=== PATIENT | male | born 1960 | race Caucasian/White ===

== ENCOUNTER 2017-11-27 16:37 | Outpatient (RCR) | payer BC, SELFPAY ==
[2017-11-20 18:50] LABS: Absolute Lymphocyte Count 1.93 X10^3/ul (0.83-4.51); Absolute Neutrophil Count 7.1 X10^3/uL (2.0-7.7); Eosinophil# 0.23 X10^3/uL; Eosinophils% 2.5 % (0-5); Hematocrit 35.8 % (40-54); Hemoglobin 11.2 g/dl (13.0-16.5); Lymphocyte # 1.93 X10^3/ul (4.0); Lymphocyte % 20.8 % (19-41); Mean Corp Hgb Conc 31.3 g/gl (32-36); Mean Corpuscular Hgb 27.9 pg (27.0-32.0); Mean Corpuscular Volume 89.3 fL (80-94); Mean Platelet Vol. 10.4 fl (6.2-12.0); Monocyte# 0.03 X10^3/uL; Monocyte% 0.3 % (0-10); Neutrophil % 76.3 % (47-70); POSITIVE COUNT NO; POSITIVE DIFFERENTIAL NO; POSITIVE MORPHOLOGY NO; Platelet Count 504 K/mm3 (150-450); RBC Distribution Width CV 18.5 % (11.6-14.6); RBC Distribution Width SD 56.7 fl (35.1-43.9); Red Blood Count 4.01 M/mm3 (4.6-6.2); White Blood Count 9.3 K/mm3 (4.4-11.0)
[2017-11-20 19:07] LABS: ALB/GLOB Ratio 0.5 RATIO (0.9-2.4); AST(SGOT) 96 U/L (15-37); Alanine Aminotransfer ALT/SGPT 84 U/L (16-61); Albumin, Serum 2.2 g/dL (3.2-5.0); Alkaline Phosphatase 230 U/L (45-117); Anion Gap 8 (5-15); BUN 13 mg/dL (7-18); BUN/Creat Ratio 22.8 RATIO (10-20); Calcium,Total 8.1 mg/dL (8.5-10.1); Chloride 105 mmol/L (98-107); Creatinine, Serum 0.57 mg/dL (0.70-1.30); EST Glomerular Filtration Rate 156 mL/min (>60); Est Glom Filt Rate - Afr Amer 188 mL/min (>60); Globulin 4.2 g/dL (2.2-4.2); Glucose 89 mg/dL (74-106); Magnesium 2.1 mg/dL (1.6-2.6); Phosphorus 4.3 mg/dL (2.5-4.9); Potassium 4.1 mmol/L (3.5-5.1); Prealbumin 19.3 mg/dL (20.0-40.0); Protein, Total 6.4 g/dL (6.4-8.2); Sodium Level 141 mmol/L (136-145); Triglycerides 130 mg/dL
[2017-11-27 18:47] LABS: ALB/GLOB Ratio 0.4 RATIO (0.9-2.4); AST(SGOT) 23 U/L (15-37); Alanine Aminotransfer ALT/SGPT 38 U/L (16-61); Alkaline Phosphatase 191 U/L (45-117); Anion Gap 11 (5-15); BUN 17 mg/dL (7-18); BUN/Creat Ratio 23.1 RATIO (10-20); Calcium,Total 8.3 mg/dL (8.5-10.1); Chloride 102 mmol/L (98-107); Creatinine, Serum 0.74 mg/dL (0.70-1.30); EST Glomerular Filtration Rate 116 mL/min (>60); Est Glom Filt Rate - Afr Amer 140 mL/min (>60); Globulin 4.7 g/dL (2.2-4.2); Glucose 117 mg/dL (74-106); Magnesium 1.7 mg/dL (1.6-2.6); Phosphorus 2.5 mg/dL (2.5-4.9); Potassium 3.4 mmol/L (3.5-5.1); Prealbumin 6.6 mg/dL (20.0-40.0); Protein, Total 6.7 g/dL (6.4-8.2); Sodium Level 138 mmol/L (136-145)
[2017-11-27 18:55] LABS: Absolute Lymphocyte Count 1.39 X10^3/ul (0.83-4.51); Absolute Neutrophil Count 0.8 X10^3/uL (2.0-7.7); Basophil# 0.03 X10^3/uL; Basophil% 0.9 % (0-1); Eosinophil# 0.09 X10^3/uL; Eosinophils% 2.7 % (0-5); Hematocrit 35.7 % (40-54); Hemoglobin 11.4 g/dl (13.0-16.5); Lymphocyte # 1.39 X10^3/ul (4.0); Lymphocyte % 41.2 % (19-41); Mean Corp Hgb Conc 31.9 g/gl (32-36); Mean Corpuscular Hgb 27.1 pg (27.0-32.0); Mean Corpuscular Volume 84.8 fL (80-94); Mean Platelet Vol. 10.5 fl (6.2-12.0); Monocyte# 1.05 X10^3/uL; Monocyte% 31.2 % (0-10); Neutrophil # 0.81 X10^3/uL (2.7-7.7); Platelet Count 354 K/mm3 (150-450); RBC Distribution Width CV 18.3 % (11.6-14.6); RBC Distribution Width SD 53.9 fl (35.1-43.9); Red Blood Count 4.21 M/mm3 (4.6-6.2); White Blood Count 3.4 K/mm3 (4.4-11.0)
[2017-11-27 18:59] LABS: Differential Indicated SCAN CRITERIA MET; POSITIVE COUNT NO; POSITIVE DIFFERENTIAL YES; POSITIVE MORPHOLOGY YES
[2017-11-27 19:12] LABS: Differential Comment SCANNED
== END 2017-12-12 23:59 ==
LOC: HHLAB 16:37
PROVIDERS: Visit Provider Specialist/Technologist, Other Surgical Technologist
DX: C25.9 Malignant neoplasm of pancreas, unspecified (principal); Z51.81 Encounter for therapeutic drug level monitoring
CPT/HCPCS: 80053; 83735; 84100; 84134; 84478; 85025

== ENCOUNTER 2017-11-30 07:55 | Outpatient (RCR) | payer BC, SELFPAY ==
[2017-11-30 08:45] LABS: Absolute Lymphocyte Count 3.38 X10^3/ul (0.83-4.51); Absolute Neutrophil Count 3.7 X10^3/uL (2.0-7.7); Basophil# 0.58 X10^3/uL; Basophil% 5.8 % (0-1); Differential Indicated SCAN CRITERIA MET; Eosinophil# 0.28 X10^3/uL; Eosinophils% 2.8 % (0-5); Hematocrit 35.6 % (40-54); Hemoglobin 11.4 g/dl (13.0-16.5); Lymphocyte # 3.38 X10^3/ul (4.0); Lymphocyte % 33.7 % (19-41); Mean Corpuscular Hgb 27.1 pg (27.0-32.0); Mean Corpuscular Volume 84.6 fL (80-94); Mean Platelet Vol. 10.1 fl (6.2-12.0); Monocyte# 1.94 X10^3/uL; Monocyte% 19.3 % (0-10); Neutrophil # 3.69 X10^3/uL (2.7-7.7); Neutrophil % 36.8 % (47-70); POSITIVE COUNT NO; POSITIVE DIFFERENTIAL YES; POSITIVE MORPHOLOGY YES; Platelet Count 550 K/mm3 (150-450); RBC Distribution Width CV 18.1 % (11.6-14.6); RBC Distribution Width SD 52.6 fl (35.1-43.9); Red Blood Count 4.21 M/mm3 (4.6-6.2)
== END 2017-11-30 09:00 | disposition home or self-care (01) ==
LOC: LAB 07:55
DX: C25.9 Malignant neoplasm of pancreas, unspecified (principal)
CPT/HCPCS: 36415; 85025

== ENCOUNTER 2018-01-01 12:32 | Outpatient (RCR) | payer BC, SELFPAY ==
[2017-12-18 14:47] LABS: Hematocrit 29.7 % (40-54); Hemoglobin 9.2 g/dl (13.0-16.5); Mean Corpuscular Hgb 27.4 pg (27.0-32.0); Mean Corpuscular Volume 88.4 fL (80-94); Mean Platelet Vol. 11.4 fl (6.2-12.0); Platelet Count 360 K/mm3 (150-450); RBC Distribution Width CV 20.6 % (11.6-14.6); RBC Distribution Width SD 64.1 fl (35.1-43.9); Red Blood Count 3.36 M/mm3 (4.6-6.2); White Blood Count 9.4 K/mm3 (4.4-11.0)
[2017-12-18 14:50] LABS: Scan Indicated on CBC? Y/N YES- FLAGS NOTED
[2017-12-18 14:57] LABS: ALB/GLOB Ratio 0.3 RATIO (0.9-2.4); AST(SGOT) 49 U/L (15-37); Alanine Aminotransfer ALT/SGPT 36 U/L (16-61); Albumin, Serum 1.5 g/dL (3.2-5.0); Alkaline Phosphatase 331 U/L (45-117); Anion Gap 6 (5-15); BUN 23 mg/dL (7-18); BUN/Creat Ratio 20.9 RATIO (10-20); Calcium,Total 7.7 mg/dL (8.5-10.1); Chloride 108 mmol/L (98-107); EST Glomerular Filtration Rate 73 mL/min (>60); Est Glom Filt Rate - Afr Amer 88 mL/min (>60); Globulin 5.5 g/dL (2.2-4.2); Glucose 79 mg/dL (74-106); Magnesium 1.6 mg/dL (1.6-2.6); Potassium 4.2 mmol/L (3.5-5.1); Sodium Level 143 mmol/L (136-145)
[2018-01-01 13:33] LABS: ALB/GLOB Ratio 0.5 RATIO (0.9-2.4); AST(SGOT) 56 U/L (15-37); Alanine Aminotransfer ALT/SGPT 94 U/L (16-61); Albumin, Serum 2.3 g/dL (3.2-5.0); Alkaline Phosphatase 263 U/L (45-117); Anion Gap 11 (5-15); BUN 25 mg/dL (7-18); BUN/Creat Ratio 40.8 RATIO (10-20); Calcium,Total 8.1 mg/dL (8.5-10.1); Chloride 106 mmol/L (98-107); Creatinine, Serum 0.61 mg/dL (0.70-1.30); EST Glomerular Filtration Rate 143 mL/min (>60); Est Glom Filt Rate - Afr Amer 173 mL/min (>60); Globulin 4.6 g/dL (2.2-4.2); Glucose 120 mg/dL (74-106); Magnesium 1.8 mg/dL (1.6-2.6); Potassium 3.7 mmol/L (3.5-5.1); Prealbumin 29.7 mg/dL (20.0-40.0); Protein, Total 6.9 g/dL (6.4-8.2); Sodium Level 143 mmol/L (136-145)
[2018-01-01 13:39] LABS: Absolute Lymphocyte Count 1.54 X10^3/ul (0.83-4.51); Absolute Neutrophil Count 4.1 X10^3/uL (2.0-7.7); Basophil# 0.05 X10^3/uL; Basophil% 0.8 % (0-1); Eosinophils% 4.9 % (0-5); Hematocrit 31.1 % (40-54); Hemoglobin 9.8 g/dl (13.0-16.5); Lymphocyte # 1.54 X10^3/ul (4.0); Mean Corp Hgb Conc 31.5 g/gl (32-36); Mean Corpuscular Hgb 28.1 pg (27.0-32.0); Mean Corpuscular Volume 89.1 fL (80-94); Mean Platelet Vol. 12.5 fl (6.2-12.0); Monocyte# 0.13 X10^3/uL; Monocyte% 2.1 % (0-10); Neutrophil # 4.12 X10^3/uL (2.7-7.7); Platelet Count 181 K/mm3 (150-450); RBC Distribution Width CV 20.3 % (11.6-14.6); RBC Distribution Width SD 63.3 fl (35.1-43.9); Red Blood Count 3.49 M/mm3 (4.6-6.2); White Blood Count 6.2 K/mm3 (4.4-11.0)
[2018-01-01 13:40] LABS: Differential Indicated SCAN CRITERIA MET; POSITIVE COUNT NO; POSITIVE DIFFERENTIAL NO; POSITIVE MORPHOLOGY YES
== END 2018-01-12 23:59 ==
LOC: HHLAB 12:32
PROVIDERS: Visit Provider Specialist/Technologist, Other Surgical Technologist
DX: C25.9 Malignant neoplasm of pancreas, unspecified (principal); Z45.2 Encounter for adjustment and management of vascular access device
CPT/HCPCS: 80053; 83735; 84100; 84134; 85025; 85027

== ENCOUNTER 2018-01-17 16:20 | Emergency (ER) | payer BC, SELFPAY ==
[2018-01-17 16:21] VITALS: BP 118/75; PULSE 103; RESP 18; TEMP 36.9; O2SAT 97; BMI 25.0
[2018-01-17 17:09] LABS: Anion Gap 11 (5-15); BUN 18 mg/dL (7-18); BUN/Creat Ratio 27.8 RATIO (10-20); Calcium,Total 8.3 mg/dL (8.5-10.1); Chloride 107 mmol/L (98-107); Creatinine, Serum 0.65 mg/dL (0.70-1.30); EST Glomerular Filtration Rate 134 mL/min (>60); Est Glom Filt Rate - Afr Amer 162 mL/min (>60); Estimated Creatinine Clearance 150.23 ml/min; Glucose 114 mg/dL (74-106); Potassium 3.6 mmol/L (3.5-5.1); Sodium Level 139 mmol/L (136-145)
[2018-01-17 17:21] LABS: Absolute Lymphocyte Count 1.53 X10^3/ul (0.83-4.51); Absolute Neutrophil Count 1.2 X10^3/uL (2.0-7.7); Basophil# 0.01 X10^3/uL; Basophil% 0.3 % (0-1); Eosinophil# 0.09 X10^3/uL; Eosinophils% 3.1 % (0-5); Hematocrit 32.8 % (40-54); Hemoglobin 10.6 g/dl (13.0-16.5); Lymphocyte # 1.53 X10^3/ul (4.0); Mean Corp Hgb Conc 32.3 g/gl (32-36); Mean Corpuscular Hgb 27.8 pg (27.0-32.0); Mean Corpuscular Volume 86.1 fL (80-94); Mean Platelet Vol. 10.4 fl (6.2-12.0); Monocyte# 0.08 X10^3/uL; Monocyte% 2.7 % (0-10); Neutrophil # 1.23 X10^3/uL (2.7-7.7); Neutrophil % 41.9 % (47-70); Platelet Count 278 K/mm3 (150-450); RBC Distribution Width CV 18.7 % (11.6-14.6); RBC Distribution Width SD 59.2 fl (35.1-43.9); Red Blood Count 3.81 M/mm3 (4.6-6.2); White Blood Count 2.9 K/mm3 (4.4-11.0)
[2018-01-17 18:28] LABS: Differential Indicated SCAN CRITERIA MET; POSITIVE COUNT NO; POSITIVE DIFFERENTIAL NO; POSITIVE MORPHOLOGY YES
--- NOTE | 2018-01-17 18:45 | ED.DCSUM_ITS ---
- ER Visit Summary Date of Service: 01/17/18 Chief Complaint: Left arm swollen History of Present Illness: The patient is a 58 M with history of pancreatic cancer. He had a PICC line placed in the left upper extremity several months ago at the cancer treatment centers of [facility] in [place]. Line is used nightly for TPN and fluids. He noted his left arm to be swollen over the past 2 days. He has been trying to establish care with Dr. Martin, but currently does not have a primary care physician locally. He denies chest pain or shortness of breath. Physical Examination: Vital signs are unremarkable. Patient sitting upright in bed no acute distress. Heart is regular rate and rhythm. Lung sounds are clear. Abdomen is soft nontender. Left upper extremity examination was PICC line to be in place. He has 2+ edema to the arm. There is no erythema. Area around the PICC line is nontender. Test Results: CBC was white count 2.9 with 1.2 absolute neutrophils. Hemoglobin 10.6. Chemistry studies normal. Chest x-ray shows no acute process. Left PICC line is in place with the tip at the SVC/atrial junction. Emergency Department Course and Treatment: Patient presented to the ED at a time and I do not have ultrasound available to check his arm. He will be written for an order to come back tomorrow for ultrasound of the left arm. PICC line will be flushed prior to discharge. Treatment Plan: [] Disposition: Discharge Impression: Left arm edema This note was generated with Admittedly dictation software. It may contain incorrect words, spelling, and punctuation that were not noted in review of the chart prior to signing ED Disposition - Plan for ED Patient: Chief Complaint: Edema Referrals: Care Physician,No Primary [Primary Care Provider] -
--- NOTE | 2018-01-17 18:46 | ED.DEP ---
ED Disposition - Plan for ED Patient: Disposition: Home or Assisted Living Chief Complaint: Edema Referrals: Kleber Martin DO [STAFF PHYSICIAN] - Additional Instructions: You will return tomorrow for an ultrasound of your left arm to ensure no blood clot present.
[2018-01-17 19:13] VITALS: BP 106/79; PULSE 86; RESP 16; O2SAT 97
[2018-01-18 14:34] LABS: Pathologist Review Reviewed
== END 2018-01-17 19:19 | disposition home or self-care (01) ==
PROVIDERS: Emergency Provider Emergency Medicine
DX: R60.0 Localized edema (principal); Z79.01 Long term (current) use of anticoagulants; Z79.891 Long term (current) use of opiate analgesic; Z79.899 Other long term (current) drug therapy; Z85.07 Personal history of malignant neoplasm of pancreas
CPT/HCPCS: 71045; 80048; 85025; 99285; A4216

== ENCOUNTER → 2018-01-18 13:01 | Outpatient (CLI) | payer BC, SELFPAY | PROVIDERS: Visit Provider Emergency Medicine | DX: R60.0 Localized edema (principal) | CPT/HCPCS: 93971 ==

== ENCOUNTER 2018-01-18 13:35 | Emergency (ER) | payer BC, SELFPAY ==
[2018-01-18 13:35] VITALS: BP 122/84; PULSE 82; RESP 16; TEMP 36.4; O2SAT 98; BMI 24.8
--- NOTE | 2018-01-18 14:49 | ED.DCSUM_ITS ---
- ER Visit Summary Date of Service: 01/18/18 Chief Complaint: Arm swelling History of Present Illness: The patient is a 58 M presents to the emergency department with left arm swelling. Patient has a history of pancreatic cancer. He has a PICC line in his left arm. He was actually seen here yesterday with some swelling into the arm. He had an outpatient ultrasound today which shows DVT around the PICC line in the upper extremity. He denies chest pain or shortness of breath. He gets all of his treatment through the cancer center of [facility] in [place]. He initially had treatment through [facility], but was referred for a second opinion there. He was actually admitted in December with bacteremia. At that time, he had his Mediport pulled and his PICC was placed. He is not on anticoagulants. He denies any fevers or chills. Physical Examination: Vital signs reviewed General: Well-nourished, well-developed Head: Normocephalic, atraumatic Eyes: Pupils equal and reactive, extraocular muscles intact Neck, supple, no lymphadenopathy Heart: Regular rate and rhythm Respiratory: No distress, clear bilaterally Abdomen: Soft, nontender, nondistended, no peritoneal signs Back: Nontender Extremities: Asymmetric edema of the left upper extremity, 2+ pulses, no cords Skin: Normal color no rash Neuro: Alert and oriented, no focal or lateralizing deficits Test Results: [] Emergency Department Course and Treatment: [I was able to review the patient's labs from yesterday along with his ultrasound from today. His platelets are normal. I discussed the patient with his oncologist, Dr. Mcgee at the cancer [facility] in [place]. She did recommend starting Eliquis. The patient is dependent on his PICC line for nutrition, so I do feel that pulling it at this time is not appropriate. The patient was given his first dose here. He was written a prescription. He was counseled on side effects and bleeding and when to return to the emergency department. He is comfortable this plan of care will be discharged home. Treatment Plan: [] Disposition: Discharge Impression: Left upper extremity DVT This note was generated with NetClarity dictation software. It may contain incorrect words, spelling, and punctuation that were not noted in review of the chart prior to signing ED Disposition - Plan for ED Patient: Chief Complaint: Edema Instructions: ED DVT Prescriptions: Apixaban [Eliquis] 10 mg PO BID #49 tab Referrals: Care Physician,No Primary [Primary Care Provider] -
[2018-01-18] MEDS: APIXABAN 5 MG TABLET 10 MG PO (15:43)
[2018-01-18 15:48] VITALS: BP 124/84; PULSE 86; RESP 17; O2SAT 97
== END 2018-01-18 15:49 | disposition home or self-care (01) ==
PROVIDERS: Emergency Provider Emergency Medicine
DX: I82.622 Acute embolism and thrombosis of deep veins of left upper extremity (principal); Z79.01 Long term (current) use of anticoagulants; Z79.899 Other long term (current) drug therapy; Z85.07 Personal history of malignant neoplasm of pancreas
CPT/HCPCS: 99283

== ENCOUNTER 2018-01-22 16:14 | Outpatient (RCR) | payer BC, SELFPAY ==
[2018-01-16 17:28] LABS: Absolute Neutrophil Count 1.8 X10^3/uL (2.0-7.7); Basophil# 0.01 X10^3/uL; Basophil% 0.3 % (0-1); Eosinophil# 0.06 X10^3/uL; Eosinophils% 1.8 % (0-5); Hematocrit 28.6 % (40-54); Hemoglobin 9.2 g/dl (13.0-16.5); Lymphocyte % 39.6 % (19-41); Mean Corp Hgb Conc 32.2 g/gl (32-36); Mean Corpuscular Hgb 28.2 pg (27.0-32.0); Mean Corpuscular Volume 87.7 fL (80-94); Mean Platelet Vol. 11.2 fl (6.2-12.0); Monocyte# 0.07 X10^3/uL; Monocyte% 2.1 % (0-10); Neutrophil # 1.83 X10^3/uL (2.7-7.7); Neutrophil % 55.9 % (47-70); Platelet Count 200 K/mm3 (150-450); RBC Distribution Width SD 61.1 fl (35.1-43.9); Red Blood Count 3.26 M/mm3 (4.6-6.2); White Blood Count 3.3 K/mm3 (4.4-11.0)
[2018-01-16 17:30] LABS: POSITIVE COUNT NO; POSITIVE DIFFERENTIAL NO; POSITIVE MORPHOLOGY NO
[2018-01-16 17:40] LABS: Magnesium 1.6 mg/dL (1.6-2.6); Phosphorus 3.1 mg/dL (2.5-4.9); Prealbumin 15.8 mg/dL (20.0-40.0)
[2018-01-17 14:35] LABS: ALB/GLOB Ratio 0.6 RATIO (0.9-2.4); AST(SGOT) 27 U/L (15-37); Alanine Aminotransfer ALT/SGPT 66 U/L (16-61); Alkaline Phosphatase 189 U/L (45-117); Anion Gap 10 (5-15); BUN 19 mg/dL (7-18); BUN/Creat Ratio 38.2 RATIO (10-20); Calcium,Total 7.5 mg/dL (8.5-10.1); Chloride 106 mmol/L (98-107); EST Glomerular Filtration Rate 182 mL/min (>60); Est Glom Filt Rate - Afr Amer 220 mL/min (>60); Globulin 3.6 g/dL (2.2-4.2); Glucose 97 mg/dL (74-106); Potassium 3.7 mmol/L (3.5-5.1); Protein, Total 5.6 g/dL (6.4-8.2); Sodium Level 140 mmol/L (136-145)
[2018-01-22 17:46] LABS: ALB/GLOB Ratio 0.5 RATIO (0.9-2.4); AST(SGOT) 23 U/L (15-37); Alanine Aminotransfer ALT/SGPT 35 U/L (16-61); Albumin, Serum 1.8 g/dL (3.2-5.0); Alkaline Phosphatase 189 U/L (45-117); Anion Gap 13 (5-15); BUN 25 mg/dL (7-18); BUN/Creat Ratio 36.7 RATIO (10-20); Calcium,Total 8.1 mg/dL (8.5-10.1); Chloride 108 mmol/L (98-107); Creatinine, Serum 0.68 mg/dL (0.70-1.30); EST Glomerular Filtration Rate 127 mL/min (>60); Est Glom Filt Rate - Afr Amer 153 mL/min (>60); Globulin 3.9 g/dL (2.2-4.2); Glucose 112 mg/dL (74-106); Magnesium 1.6 mg/dL (1.6-2.6); Phosphorus 3.6 mg/dL (2.5-4.9); Potassium 3.4 mmol/L (3.5-5.1); Prealbumin 7.4 mg/dL (20.0-40.0); Protein, Total 5.7 g/dL (6.4-8.2); Sodium Level 144 mmol/L (136-145); Triglycerides 94 mg/dL
[2018-01-22 18:06] LABS: Absolute Lymphocyte Count 1.58 X10^3/ul (0.83-4.51); Basophil# 0.03 X10^3/uL; Basophil% 0.8 % (0-1); Differential Comment SCANNED; Differential Indicated SCAN CRITERIA MET; Eosinophil# 0.08 X10^3/uL; Eosinophils% 2.1 % (0-5); Hematocrit 35.2 % (40-54); Hemoglobin 11.1 g/dl (13.0-16.5); Lymphocyte # 1.58 X10^3/ul (4.0); Lymphocyte % 40.5 % (19-41); Mean Corp Hgb Conc 31.5 g/gl (32-36); Mean Corpuscular Volume 88.7 fL (80-94); Mean Platelet Vol. 10.6 fl (6.2-12.0); Monocyte# 1.17 X10^3/uL; Neutrophil % 25.6 % (47-70); POSITIVE COUNT NO; POSITIVE DIFFERENTIAL YES; POSITIVE MORPHOLOGY YES; Platelet Count 392 K/mm3 (150-450); RBC Distribution Width CV 19.5 % (11.6-14.6); RBC Distribution Width SD 63.7 fl (35.1-43.9); Red Blood Count 3.97 M/mm3 (4.6-6.2); White Blood Count 3.9 K/mm3 (4.4-11.0)
== END 2018-02-11 23:59 ==
LOC: HHLAB 16:14
PROVIDERS: Visit Provider Specialist/Technologist, Other Surgical Technologist
DX: C25.9 Malignant neoplasm of pancreas, unspecified (principal); E43 Unspecified severe protein-calorie malnutrition; K21.9 Gastro-esophageal reflux disease without esophagitis; R11.0 Nausea; Z51.81 Encounter for therapeutic drug level monitoring; Z45.2 Encounter for adjustment and management of vascular access device; Z76.0 Encounter for issue of repeat prescription
CPT/HCPCS: 80053; 83735; 84100; 84134; 84478; 85025

== ENCOUNTER 2018-02-19 14:11 | Outpatient (RCR) | payer BC, SELFPAY ==
[2018-02-19 14:52] LABS: Absolute Lymphocyte Count 1.91 X10^3/ul (0.83-4.51); Absolute Neutrophil Count 3.3 X10^3/uL (2.0-7.7); Basophil# 0.02 X10^3/uL; Basophil% 0.3 % (0-1); Eosinophil# 0.08 X10^3/uL; Eosinophils% 1.3 % (0-5); Hematocrit 29.2 % (40-54); Hemoglobin 9.6 g/dl (13.0-16.5); Lymphocyte # 1.91 X10^3/ul (4.0); Mean Corp Hgb Conc 32.9 g/gl (32-36); Mean Corpuscular Hgb 30.1 pg (27.0-32.0); Mean Corpuscular Volume 91.5 fL (80-94); Mean Platelet Vol. 11.4 fl (6.2-12.0); Monocyte# 0.57 X10^3/uL; Monocyte% 9.6 % (0-10); Neutrophil # 3.29 X10^3/uL (2.7-7.7); Neutrophil % 55.3 % (47-70); Platelet Count 170 K/mm3 (150-450); RBC Distribution Width CV 19.7 % (11.6-14.6); Red Blood Count 3.19 M/mm3 (4.6-6.2)
[2018-02-19 14:53] LABS: Differential Indicated SCAN CRITERIA MET; POSITIVE COUNT NO; POSITIVE DIFFERENTIAL NO; POSITIVE MORPHOLOGY YES
[2018-02-19 15:03] LABS: ALB/GLOB Ratio 0.5 RATIO (0.9-2.4); AST(SGOT) 41 U/L (15-37); Alanine Aminotransfer ALT/SGPT 85 U/L (16-61); Albumin, Serum 2.1 g/dL (3.2-5.0); Alkaline Phosphatase 243 U/L (45-117); Anion Gap 8 (5-15); BUN 16 mg/dL (7-18); BUN/Creat Ratio 40.7 RATIO (10-20); Chloride 105 mmol/L (98-107); Creatinine, Serum 0.39 mg/dL (0.70-1.30); EST Glomerular Filtration Rate 239 mL/min (>60); Est Glom Filt Rate - Afr Amer 289 mL/min (>60); Globulin 4.4 g/dL (2.2-4.2); Glucose 69 mg/dL (74-106); Magnesium 1.9 mg/dL (1.6-2.6); Phosphorus 2.2 mg/dL (2.5-4.9); Potassium 3.7 mmol/L (3.5-5.1); Prealbumin 24.2 mg/dL (20.0-40.0); Protein, Total 6.5 g/dL (6.4-8.2); Sodium Level 140 mmol/L (136-145); Triglycerides 76 mg/dL
[2018-02-19 15:09] LABS: Hypochromasia 2+; Polychromasia 1+
[2018-02-19 15:10] LABS: Platelet Estimate ADEQUATE (ADEQ)
== END 2018-03-14 23:59 ==
LOC: HHLAB 14:11
PROVIDERS: Referring Provider Specialist/Technologist, Other Surgical Technologist; Visit Provider Specialist/Technologist, Other Surgical Technologist
DX: C25.9 Malignant neoplasm of pancreas, unspecified (principal); Z76.0 Encounter for issue of repeat prescription
CPT/HCPCS: 80053; 83735; 84100; 84134; 84478; 85025

== ENCOUNTER 2018-03-05 15:51 | Outpatient (RCR) | payer BC, SELFPAY ==
[2018-03-05 17:44] LABS: Absolute Neutrophil Count 2.8 X10^3/uL (2.0-7.7); Basophil# 0.01 X10^3/uL; Basophil% 0.2 % (0-1); Eosinophil# 0.02 X10^3/uL; Eosinophils% 0.5 % (0-5); Hematocrit 29.2 % (40-54); Hemoglobin 9.4 g/dl (13.0-16.5); Lymphocyte % 33.8 % (19-41); Mean Corp Hgb Conc 32.2 g/gl (32-36); Mean Corpuscular Volume 93.3 fL (80-94); Mean Platelet Vol. 12.5 fl (6.2-12.0); Monocyte# 0.07 X10^3/uL; Monocyte% 1.6 % (0-10); Neutrophil # 2.82 X10^3/uL (2.7-7.7); Neutrophil % 63.4 % (47-70); Platelet Count 120 K/mm3 (150-450); RBC Distribution Width CV 20.1 % (11.6-14.6); RBC Distribution Width SD 66.5 fl (35.1-43.9); Red Blood Count 3.13 M/mm3 (4.6-6.2); White Blood Count 4.4 K/mm3 (4.4-11.0)
[2018-03-05 17:53] LABS: Differential Indicated SCAN CRITERIA MET; POSITIVE COUNT NO; POSITIVE DIFFERENTIAL NO; POSITIVE MORPHOLOGY YES
[2018-03-05 18:06] LABS: ALB/GLOB Ratio 0.6 RATIO (0.9-2.4); AST(SGOT) 50 U/L (15-37); Alanine Aminotransfer ALT/SGPT 94 U/L (16-61); Albumin, Serum 2.2 g/dL (3.2-5.0); Alkaline Phosphatase 218 U/L (45-117); Anion Gap 10 (5-15); BUN 13 mg/dL (7-18); BUN/Creat Ratio 30.6 RATIO (10-20); Calcium,Total 8.1 mg/dL (8.5-10.1); Chloride 106 mmol/L (98-107); Creatinine, Serum 0.42 mg/dL (0.70-1.30); EST Glomerular Filtration Rate 218 mL/min (>60); Est Glom Filt Rate - Afr Amer 264 mL/min (>60); Globulin 3.4 g/dL (2.2-4.2); Glucose 65 mg/dL (74-106); Magnesium 1.4 mg/dL (1.6-2.6); Phosphorus 4.4 mg/dL (2.5-4.9); Potassium 3.9 mmol/L (3.5-5.1); Prealbumin 26.9 mg/dL (20.0-40.0); Protein, Total 5.6 g/dL (6.4-8.2); Sodium Level 140 mmol/L (136-145)
[2018-03-05 18:17] LABS: Anisocytosis 1+; Platelet Estimate SLT DEC (ADEQ); Red Cell Morphology N CHROM NORMAL (NORM C&C)
== END 2018-03-14 23:59 ==
LOC: HHLAB 15:51
PROVIDERS: Family Provider Specialist/Technologist, Other Surgical Technologist; PCP Specialist/Technologist, Other Surgical Technologist; Referring Provider Specialist/Technologist, Other Surgical Technologist; Visit Provider Specialist/Technologist, Other Surgical Technologist
DX: C25.9 Malignant neoplasm of pancreas, unspecified (principal); Z45.2 Encounter for adjustment and management of vascular access device
CPT/HCPCS: 80053; 83735; 84100; 84134; 85025

== ENCOUNTER 2018-03-31 19:43 | Emergency (ER) | payer BC, SELFPAY ==
[2018-03-31 19:45] VITALS: BP 121/84; PULSE 90; RESP 15; TEMP 36.6; O2SAT 97; BMI 23.8
--- NOTE | 2018-03-31 20:38 | ED.DCSUM_ITS ---
- ER Visit Summary Date of Service: 03/31/18 Chief Complaint: Blood from drain tube History of Present Illness: The patient is a 58 M patient presents with spouse for noticing bled from drain to connected his stomach started at 4 PM this evening. This was placed 4 weeks ago. History of pancreatic cancer with obstruction to his bowels. He is followed by cancer treatment center in [place] Dr. Mcgee. Initially was at [facility] however left and went to the cancer treatment center. Patient was on Eliquis for left subclavian DVT was transitioned over to Lovenox twice daily. She states had a biopsy stomach lesion a week ago up at the facility due to an abnormal lesion during his EGD and drain placement. Reported that lesion had mostly resolved however spouse states that the significant size biopsy was taken that was reported. He is on chemo with treatment 3 days ago up at their facility. Neulasta was given 2 days ago. He gets TPN for nutrition. Hemoglobin is 10.1 on the 12th. White blood cell count 14.3 before Neulasta. He is not giving himself Lovenox since the biopsy. No lightheaded symptoms. Physical Examination: General: Alert and oriented ?3, no acute distress HEENT: Normocephalic, atraumatic. Moist mucosa membranes Neck: supple, nontender. Cardiovascular: Regular rate and rhythm, no murmurs Respiratory: Normal breath sounds, symmetric, no distress Abdomen: Soft, nontender, nondistended. Drain tube from epigastrium, occult blood in tubing and bag. Extremities: Nontender, no edema, pulses intact ?4 Neuro: no focal neurological deficits. Test Results: Hemoglobin 10.5. White count 36.6. Emergency Department Course and Treatment: Patient nontoxic. Orthostatics negative. History concerns for bleeding from his recent biopsy from 6 days ago. Vitals are stable, he will 10.5. This is slightly higher than labs from 5 days ago. White count 36.6, they expected this elevation due to receiving Neulasta. No fevers. Patient is currently on Protonix twice a day along with Carafate 4 times a day. Discussed with patient monitoring symptoms. Did attempt to call his GI physician Dr. Sanchez from cancer treatment centers of [facility], physician office secretary left a couple voicemails. Discussed with patient significant other, continue the medications call in the morning during normal hours to discuss visit and plan of care. Signs and symptoms discussed to return. Treatment Plan: [] Disposition: Discharge Impression: 1. Upper GI bleed recent biopsy This note was generated with [employer] dictation software. It may contain incorrect words, spelling, and punctuation that were not noted in review of the chart prior to signing ED Disposition - Plan for ED Patient: Disposition: Home or Assisted Living Chief Complaint: GI Bleed Diagnosis: Upper GI bleed, Recent stomach biopsy Instructions: ED Bleed UGI Stable Referrals: Kleber Martin DO [Primary Care Provider] - Additional Instructions: Hemoglobin 10.5 today. WBC 36.6. Status post Neulasta. Call your GI physician tomorrow to discuss your visit in the ED. continue your Protonix and Carafate.
[2018-03-31 21:14] LABS: Anion Gap 7 (5-15); BUN 19 mg/dL (7-18); BUN/Creat Ratio 32.1 RATIO (10-20); Calcium,Total 8.2 mg/dL (8.5-10.1); Chloride 108 mmol/L (98-107); Creatinine, Serum 0.59 mg/dL (0.70-1.30); EST Glomerular Filtration Rate 149 mL/min (>60); Est Glom Filt Rate - Afr Amer 180 mL/min (>60); Estimated Creatinine Clearance 165.51 ml/min; Glucose 83 mg/dL (74-106); Potassium 3.7 mmol/L (3.5-5.1); Sodium Level 141 mmol/L (136-145)
[2018-03-31 21:15] LABS: Absolute Lymphocyte Count 2.31 X10^3/ul (0.83-4.51); Basophil# 0.03 X10^3/uL; Basophil% 0.1 % (0-1); Eosinophil# 0.05 X10^3/uL; Eosinophils% 0.1 % (0-5); Hematocrit 32.5 % (40-54); Hemoglobin 10.5 g/dl (13.0-16.5); Lymphocyte # 2.31 X10^3/ul (4.0); Lymphocyte % 6.3 % (19-41); Mean Corp Hgb Conc 32.3 g/gl (32-36); Mean Corpuscular Hgb 30.8 pg (27.0-32.0); Mean Corpuscular Volume 95.3 fL (80-94); Mean Platelet Vol. 10.5 fl (6.2-12.0); Monocyte# 0.25 X10^3/uL; Monocyte% 0.7 % (0-10); Neutrophil # 33.02 X10^3/uL (2.7-7.7); Neutrophil % 90.2 % (47-70); Platelet Count 187 K/mm3 (150-450); RBC Distribution Width CV 18.9 % (11.6-14.6); RBC Distribution Width SD 65.8 fl (35.1-43.9); Red Blood Count 3.41 M/mm3 (4.6-6.2)
[2018-03-31 21:17] LABS: International Normalized Ratio 0.9; Prothrombin Time (Protime)PT. 12.5 SECONDS (11.7-14.9)
[2018-03-31 21:18] LABS: Partial Thromboplast Time 32.9 Seconds (24.1-36.2)
[2018-03-31 21:21] LABS: Differential Indicated SCAN CRITERIA MET; POSITIVE COUNT YES; POSITIVE DIFFERENTIAL YES; POSITIVE MORPHOLOGY YES
[2018-03-31 21:24] LABS: White Blood Count 36.6 K/mm3 (4.4-11.0)
--- NOTE | 2018-03-31 21:25 | ED.RN ---
Critical result taken from lab, wbc 36.6. Dr. Verdin aware with Kris CACERES.
[2018-03-31 21:49] VITALS: BP 119/83; BP 122/99; BP 126/98; PULSE 103; PULSE 77; PULSE 88
[2018-03-31 21:50] LABS: Differential Comment SCANNED
[2018-03-31 23:13] VITALS: BP 115/80; PULSE 92; RESP 16; O2SAT 98; O2SAT 99
[2018-04-02 12:58] LABS: Pathologist Review Reviewed
== END 2018-03-31 23:14 | disposition home or self-care (01) ==
PROVIDERS: Emergency Provider Emergency Medicine; Family Provider Family Medicine; PCP Family Medicine
DX: K92.2 Gastrointestinal hemorrhage, unspecified (principal); C25.9 Malignant neoplasm of pancreas, unspecified; Z79.01 Long term (current) use of anticoagulants; Z79.899 Other long term (current) drug therapy; Z85.07 Personal history of malignant neoplasm of pancreas; Z86.718 Personal history of other venous thrombosis and embolism
CPT/HCPCS: 36592; 80048; 85025; 85610; 85730; 96365; 99283; A4216; J3490

== ENCOUNTER 2018-04-02 12:59 | Outpatient (RCR) | payer BC, SELFPAY ==
[2018-03-19 18:08] LABS: Absolute Neutrophil Count 16.4 X10^3/uL (2.0-7.7); Basophil# 0.03 X10^3/uL; Basophil% 0.2 % (0-1); Differential Indicated SCAN CRITERIA MET; Eosinophil# 0.02 X10^3/uL; Eosinophils% 0.1 % (0-5); Hematocrit 30.2 % (40-54); Hemoglobin 9.5 g/dl (13.0-16.5); Lymphocyte % 5.4 % (19-41); Mean Corp Hgb Conc 31.5 g/gl (32-36); Mean Corpuscular Hgb 30.6 pg (27.0-32.0); Mean Corpuscular Volume 97.4 fL (80-94); Mean Platelet Vol. 11.1 fl (6.2-12.0); Monocyte# 1.07 X10^3/uL; Monocyte% 5.7 % (0-10); Neutrophil % 87.8 % (47-70); POSITIVE COUNT NO; POSITIVE DIFFERENTIAL NO; POSITIVE MORPHOLOGY YES; Platelet Count 181 K/mm3 (150-450); RBC Distribution Width CV 19.6 % (11.6-14.6); RBC Distribution Width SD 67.3 fl (35.1-43.9); White Blood Count 18.7 K/mm3 (4.4-11.0)
[2018-03-19 18:29] LABS: ALB/GLOB Ratio 0.7 RATIO (0.9-2.4); AST(SGOT) 44 U/L (15-37); Alanine Aminotransfer ALT/SGPT 79 U/L (16-61); Albumin, Serum 2.3 g/dL (3.2-5.0); Alkaline Phosphatase 349 U/L (45-117); Anion Gap 13 (5-15); BUN 19 mg/dL (7-18); Calcium,Total 7.9 mg/dL (8.5-10.1); Chloride 104 mmol/L (98-107); Creatinine, Serum 0.58 mg/dL (0.70-1.30); EST Glomerular Filtration Rate 154 mL/min (>60); Est Glom Filt Rate - Afr Amer 186 mL/min (>60); Globulin 3.3 g/dL (2.2-4.2); Glucose 85 mg/dL (74-106); Magnesium 1.7 mg/dL (1.6-2.6); Phosphorus 3.2 mg/dL (2.5-4.9); Potassium 3.9 mmol/L (3.5-5.1); Prealbumin 22.9 mg/dL (20.0-40.0); Protein, Total 5.6 g/dL (6.4-8.2); Sodium Level 142 mmol/L (136-145); Triglycerides 81 mg/dL
[2018-04-02 13:39] LABS: Absolute Lymphocyte Count 1.81 X10^3/ul (0.83-4.51); Absolute Neutrophil Count 18.2 X10^3/uL (2.0-7.7); Basophil# 0.05 X10^3/uL; Basophil% 0.2 % (0-1); Hematocrit 30.5 % (40-54); Hemoglobin 9.7 g/dl (13.0-16.5); Lymphocyte # 1.81 X10^3/ul (4.0); Lymphocyte % 8.7 % (19-41); Mean Corp Hgb Conc 31.8 g/gl (32-36); Mean Corpuscular Hgb 30.8 pg (27.0-32.0); Mean Corpuscular Volume 96.8 fL (80-94); Mean Platelet Vol. 11.5 fl (6.2-12.0); Monocyte# 0.51 X10^3/uL; Monocyte% 2.4 % (0-10); Neutrophil # 18.22 X10^3/uL (2.7-7.7); Neutrophil % 87.1 % (47-70); Platelet Count 151 K/mm3 (150-450); RBC Distribution Width CV 18.7 % (11.6-14.6); Red Blood Count 3.15 M/mm3 (4.6-6.2); White Blood Count 20.9 K/mm3 (4.4-11.0)
[2018-04-02 13:40] LABS: Differential Indicated SCAN CRITERIA MET; POSITIVE COUNT NO; POSITIVE DIFFERENTIAL NO; POSITIVE MORPHOLOGY YES
[2018-04-02 13:49] LABS: ALB/GLOB Ratio 0.6 RATIO (0.9-2.4); AST(SGOT) 49 U/L (15-37); Alanine Aminotransfer ALT/SGPT 85 U/L (16-61); Albumin, Serum 2.3 g/dL (3.2-5.0); Alkaline Phosphatase 484 U/L (45-117); Anion Gap 11 (5-15); BUN 22 mg/dL (7-18); BUN/Creat Ratio 45.1 RATIO (10-20); Calcium,Total 8.1 mg/dL (8.5-10.1); Chloride 105 mmol/L (98-107); Creatinine, Serum 0.49 mg/dL (0.70-1.30); EST Glomerular Filtration Rate 186 mL/min (>60); Est Glom Filt Rate - Afr Amer 225 mL/min (>60); Globulin 3.8 g/dL (2.2-4.2); Glucose 60 mg/dL (74-106); Magnesium 1.9 mg/dL (1.6-2.6); Potassium 3.8 mmol/L (3.5-5.1); Prealbumin 19.1 mg/dL (20.0-40.0); Protein, Total 6.1 g/dL (6.4-8.2); Sodium Level 144 mmol/L (136-145); Triglycerides 76 mg/dL
[2018-04-02 14:03] LABS: Differential Comment SCANNED
== END 2018-04-13 23:59 ==
LOC: HHLAB 12:59
PROVIDERS: Family Provider Specialist/Technologist, Other Surgical Technologist; PCP Specialist/Technologist, Other Surgical Technologist; Referring Provider Specialist/Technologist, Other Surgical Technologist; Visit Provider Specialist/Technologist, Other Surgical Technologist
DX: C25.9 Malignant neoplasm of pancreas, unspecified (principal); Z45.2 Encounter for adjustment and management of vascular access device
CPT/HCPCS: 80053; 83735; 84100; 84134; 84478; 85025

== ENCOUNTER 2018-04-06 13:08 | Emergency (ER) | payer BC, SELFPAY ==
[2018-04-06] VITALS (17 sets, daily range): BP systolic 91–116; BP diastolic 65–90; PULSE 91–120; RESP 17–98; TEMP 36.8–36.9; O2SAT 93–100; BMI 23.3
--- NOTE | 2018-04-06 13:29 | EKG12_ITS ---
Test Reason : CP, GI BLEED Blood Pressure : / mmHG Vent. Rate : 104 BPM Atrial Rate : 104 BPM P-R Int : 150 ms QRS Dur : 094 ms QT Int : 368 ms P-R-T Axes : 051 -27 -02 degrees QTc Int : 483 ms Sinus tachycardia Incomplete right bundle branch block Nonspecific ST and T wave abnormality Abnormal ECG Confirmed by AKASH SIMMONS, MICHELE ([id number]), film editor supervisor MAGALIE MAN ([id number]) on 04/09/2018 10:26:04 AM Referred By: Haley Avina Confirmed By:MICHELE BUSTOS MD
--- NOTE | 2018-04-06 13:29 | RAD_ITS ---
STUDY: X-RAY CHEST REASON FOR EXAM: Male, 58 years old. Hematemesis. Chest pain and chest pressure. TECHNIQUE: AP and lateral views of the chest. COMPARISON: Comparison is made with prior study January 17, 2018. FINDINGS: EKG electrodes are seen. The previously seen left PICC line catheter has been removed. The lungs are clear and expanded. There is no demonstrated pleural abnormality. There is mild cardiac enlargement. Normal mediastinum and fahad. Normal visualized pulmonary arteries. There is atherosclerotic tortuosity of the aortic arch and descending thoracic aorta. There are degenerative changes of the visualized thoracic spine. Normal visualized ribs, clavicles, and shoulders. There is no demonstrated abnormality of the visualized soft tissue structures of the upper abdomen. RAD/Chest PA and Lateral IMPRESSION: No acute infiltration is seen. Electronically Signed: Jewel Cabello MD at 14:37 EST Tel [phone], Service support ,
--- NOTE | 2018-04-06 13:30 | CT_ITS ---
STUDY: CT ABDOMEN AND PELVIS WITHOUT CONTRAST REASON FOR EXAM: Male, 58 years old. History of pancreatic carcinoma. Prior stent placement. Hematemesis. RADIATION DOSAGE (If Supplied By Facility): CTDIvol = ( 9.89 ) mGy, DLP = ( 541.29 ) mGycm TECHNIQUE: Transaxial images were obtained from the dome of the diaphragm to the symphysis pubis without oral contrast, and without intravenous contrast. Sagittal and coronal images were reconstructed. Individualized dose optimization techniques were used for this CT. COMPARISON: None. FINDINGS: Fine reticular nodular pattern in the left lower lobe. Metastatic disease should be ruled out. Small pericardial effusion. Normal liver. There are surgical clips in the gallbladder fossa consistent with a prior cholecystectomy. Normal spleen. Normal pancreas. There are multiple small rounded densities within the root of the mesentery just contacts of the pancreas. Increased markings are seen within the peritoneal fat. The changes most likely represent multiple small lymph nodes in the congestion. Normal bilateral adrenal glands. There is a 2.1 cm x 2 cm cyst in the lateral aspect of the right kidney. Mild degree of the left hydronephrosis. A double-J stent catheter is seen with the proximal tip in the left renal pelvis and the distal tip in the left lateral base. There is evidence of left perinephric and left periureteric stranding. There is a 2.1 cm cyst in the anterior lateral portion of the left kidney. A PEG tube is seen within the anterior fundal portion of the stomach. The stomach is distended with heterogeneous density. Blood within the stomach should be ruled out. Normal small intestine. Normal colon. The appendix is visualized and appears normal. There is diffuse atherosclerotic calcification of the abdominal aorta, without a demonstrated aneurysm. Normal inferior vena cava. There is borderline retroperitoneal lymphadenopathy with enlarged nodes no greater than 10mm in the short axis diameter. Normal urinary bladder. Normal abdominal wall. There are degenerative changes of the visualized lumbar spine. The patient is status post left total hip placement. CT/Abdomen/Pelvis without Cont IMPRESSION: Distended stomach with heterogeneous appearance suggestive of a possible hemorrhage within the stomach. A PEG tube is seen along the anterior fundal portion of the stomach. Left perinephric and periureteric stranding with hydronephrosis. A double-J stent catheter is seen in situ. Mesenteric lymphadenopathy with increased markings in the left of the mesentery. Electronically Signed: Jewel Cabello MD at 14:36 EST Tel [phone], Service support ,
[2018-04-06] MEDS: 0.9% Normal Saline 1,000 ML 1000 ML IV (13:39)
[2018-04-06 13:57] LABS: Absolute Neutrophil Count 9.2 X10^3/uL (2.0-7.7); Basophil# 0.07 X10^3/uL; Basophil% 0.6 % (0-1); Eosinophil# 0.12 X10^3/uL; Hematocrit 29.3 % (40-54); Hemoglobin 9.2 g/dl (13.0-16.5); Lymphocyte % 13.5 % (19-41); Mean Corp Hgb Conc 31.4 g/gl (32-36); Mean Corpuscular Hgb 30.8 pg (27.0-32.0); Mean Platelet Vol. 10.3 fl (6.2-12.0); Monocyte# 1.48 X10^3/uL; Monocyte% 11.8 % (0-10); Neutrophil # 9.16 X10^3/uL (2.7-7.7); Neutrophil % 72.7 % (47-70); Platelet Count 204 K/mm3 (150-450); RBC Distribution Width CV 20.3 % (11.6-14.6); RBC Distribution Width SD 70.7 fl (35.1-43.9); Red Blood Count 2.99 M/mm3 (4.6-6.2); White Blood Count 12.6 K/mm3 (4.4-11.0)
[2018-04-06] MEDS: Ondansetron 4 MG/2 ML Vial IV (13:58)
[2018-04-06 13:59] LABS: POSITIVE COUNT NO; POSITIVE DIFFERENTIAL NO; POSITIVE MORPHOLOGY YES
[2018-04-06 14:00] LABS: Differential Indicated SCAN CRITERIA MET
--- NOTE | 2018-04-06 14:01 | ED.RN ---
PT HAS PEG TUBE INTO STOMACH TO DRAIN STOMACH CONTENTS. CONTENTS ARE BRIGHT RED BLOOD. 800ML IN COLLECTION BAG UPON ADMISSION TO ED.
[2018-04-06 14:14] LABS: ALB/GLOB Ratio 0.6 RATIO (0.9-2.4); AST(SGOT) 58 U/L (15-37); Alanine Aminotransfer ALT/SGPT 88 U/L (16-61); Albumin, Serum 2.1 g/dL (3.2-5.0); Alkaline Phosphatase 392 U/L (45-117); Anion Gap 13 (5-15); BUN 24 mg/dL (7-18); BUN/Creat Ratio 29.6 RATIO (10-20); Calcium,Total 7.9 mg/dL (8.5-10.1); Chloride 106 mmol/L (98-107); Creatinine, Serum 0.81 mg/dL (0.70-1.30); EST Glomerular Filtration Rate 103 mL/min (>60); Est Glom Filt Rate - Afr Amer 125 mL/min (>60); Estimated Creatinine Clearance 120.56 ml/min; Globulin 3.6 g/dL (2.2-4.2); Glucose 222 mg/dL (74-106); Lipase 290 U/L (73-393); Potassium 3.5 mmol/L (3.5-5.1); Protein, Total 5.7 g/dL (6.4-8.2); Sodium Level 144 mmol/L (136-145)
[2018-04-06 14:16] LABS: Anisocytosis 2+; Hypochromasia 2+; Macrocytosis 1+; Platelet Estimate ADEQUATE (ADEQ); Polychromasia 1+
--- NOTE | 2018-04-06 15:17 | ED.RN ---
PT MOVED TO ROOM 2 FOR UPPER GI, DR. ROBERTSON AND STAFF ON THEIR WAY. ADD ON BLUE-TOP.
--- NOTE | 2018-04-06 15:30 | ED.RN ---
Dr. Peters at bedside.
[2018-04-06 15:34] LABS: Partial Thromboplast Time 21.7 Seconds (24.1-36.2); Prothrombin Time (Protime)PT. 12.8 SECONDS (11.7-14.9)
--- NOTE | 2018-04-06 15:42 | PCM.CONS.GEN ---
Problem List (1) GI (gastrointestinal bleed) Status: Acute Qualifiers: GI bleed type/associated pathology: unspecified gastrointestinal hemorrhage type Qualified Code(s): K92.2 - Gastrointestinal hemorrhage, unspecified Reason for Consult Date of Consultation: 04/06/18 Reason for Consultation: Upper GI bleed History of Present Illness: The patient is a 58 year old M with past medical history of pancreatic cancer. The patient presented with bloody vomiting and blood in his G-tube. The patient reports that he had a PEG tube placed in [place] at the cancer [facility] for gastric outlet obstruction due to his pancreatic mass. He is TPN dependent. He reports that he had a lesion in his stomach on last EGD and it was biopsied 2 weeks ago. He said about a week ago he had one episode of GI bleeding which stopped spontaneously. He said that 3 hours ago he started having blood in his G-tube and he started having bloody vomitus. He denies any abdominal pain. He is not on any blood thinners currently. Past Medical History Medical History: Medical History (Last Updated 04/06/18 @ 15:44 by Gary Peters MD) Pancreas cancer C25.9 Allergies No Known Allergies Allergy (Verified 03/31/18 19:49) Home Medications: Ambulatory Orders Medication Instructions Recorded Bromelains [Bromelain] 500 gm MC BID 01/17/18 Dronabinol [Marinol] 2.5 mg PO BID 01/17/18 Susan 500 mg PO DAILY PRN 01/17/18 Lorazepam [Ativan] 1 mg PO Q6H PRN 01/17/18 Methylsulfonylmethane [MSM] 1,000 mg PO BID 01/17/18 Metoclopramide [Reglan] 10 mg PO TIDCM 01/17/18 Mirtazapine [Remeron] 15 mg PO QHS 01/17/18 Olanzapine [Zyprexa] 2.5 mg PO BREAKFAST 01/17/18 Olanzapine [Zyprexa] 2.5 mg PO LUNCH 01/17/18 Olanzapine [Zyprexa] 5 mg PO QHS 01/17/18 Ondansetron [Zofran Odt] 8 mg PO Q8H PRN PRN 01/17/18 Oxycodone [Oxyir] 5 mg PO Q6H PRN PRN 01/17/18 Pantoprazole Sodium [Protonix] 40 mg PO BID 01/17/18 Probiotic 01/17/18 Scopolamine [Transderm-Scop] 1.5 mg TD X1 PRN 01/17/18 Sucralfate [Carafate] 1 gm PO 4X/DAY 01/17/18 proMETHazine tablet [Phenergan 25 mg PO Q6H PRN PRN 01/17/18 tablet] Surgical History: - - PEG tube Smoking Status: Never smoker Drugs: None - *Family History Paternal History Items: No pertinent history Review of Systems Constitutional: Reports: Anorexia, Weight Change. Denies: Chills, Fever HEENT: Denies: Difficulty Hearing Cardiovascular: Denies: Chest Pain Respiratory: Denies: Cough, Shortness of Breath Gastrointestinal: Reports: Hematemesis, Nausea, Vomiting. Denies: Abdominal Pain Genitourinary: Denies: Dysuria Musculoskeletal: Denies: Joint Tenderness Skin: Denies: Dryness Neurological: Denies: Tingling Hematologic/ Lymphatic: Reports: Hx of blood clot. Denies: Petechiae, Purpura Patient Problems: Active and Suspected Problems (Last Updated 04/06/18 @ 15:44 by Gary Peters MD) GI (gastrointestinal bleed) (Acute) - Physical Exam General: Alert, Oriented x3, Cooperative HEENT: Atraumatic Oral: Dry Mucosa Neck: Supple Lungs: Normal air movement Cardiovascular: Regular Rhythm, Tachycardic Abdomen: Soft, Non-Distended, - - PEG tube with copious bright blood Extremities: No clubbing Skin: No rashes Musculoskeletal: Cachexia Neurological: Cranial nerves II-XII grossly intact Psych/Mental Status: Normal Affect Vital Signs Pulse Resp BP Pulse Ox 108 H 98 H 98/72 98 04/06/18 15:15 04/06/18 15:15 04/06/18 15:15 04/06/18 15:15 Oxygen Delivery Method Room Air Weight: 191 lb 12.835 oz Body Mass Index (BMI) 23.3 Intake and Output for Last 24 Hours 04/04/18 04/05/18 04/06/18 23:59 23:59 23:59 Output Total 650 / 650 Balance -650 / -650 Microbiology Past 72 Hours 04/06/18 15:00 Stool Occult Blood (YONI) - Final Stool Laboratory Tests Past 24 Hrs 1104/06/18 04/06/18 13:40 13:40 13:40 WBC 12.6 H RBC 2.99 L Hgb 9.2 L Hct 29.3 L MCV 98.0 H MCH 30.8 MCHC 31.4 L RDW 20.3 H RDW Differential 70.7 H Plt Count 204 MPV 10.3 Immature Gran % (Auto) 0.400 Neut % (Auto) 72.7 H Lymph % (Auto) 13.5 L Dickinson % (Auto) 11.8 H Eos % (Auto) 1.0 Baso % (Auto) 0.6 Absolute Neuts (auto) 9.2 H Absolute Lymphs (auto) 1.70 Total Counted Not Reportable Platelet Estimate ADEQUATE Polychromasia 1+ Hypochromasia 2+ Anisocytosis 2+ Macrocytosis 1+ PT 12.8 INR 1.0 APTT 21.7 L Sodium 144 Potassium 3.5 Chloride 106 Carbon Dioxide 25.0 Anion Gap 13 BUN 24 H Creatinine 0.81 Estim Creat Clear Calc 120.56 Est GFR (MDRD) Af Amer 125 Est GFR (MDRD) Non-Af 103 BUN/Creatinine Ratio 29.6 H Glucose 222 H Calcium 7.9 L Total Bilirubin 0.60 AST 58 H ALT 88 H Alkaline Phosphatase 392 H Troponin I < 0.015 Total Protein 5.7 L Albumin 2.1 L Globulin 3.6 Albumin/Globulin Ratio 0.6 L Lipase 290 Clinical Impression(s) from Imaging Studies Chest X-Ray 04/06/18 13:29 IMPRESSION: No acute infiltration is seen. Electronically Signed: Jewel Cabello MD at 14:37 EST Tel [phone], Service support , Abdomen/Pelvis CT 04/06/18 13:30 IMPRESSION: Distended stomach with heterogeneous appearance suggestive of a possible hemorrhage within the stomach. A PEG tube is seen along the anterior fundal portion of the stomach. Left perinephric and periureteric stranding with hydronephrosis. A double-J stent catheter is seen in situ. Mesenteric lymphadenopathy with increased markings in the left of the mesentery. Electronically Signed: Jewel Cabello MD at 14:36 EST Tel [phone], Service support , Assessment/Plan All Active Problems (Last Updated 04/06/18 @ 15:44 by Gary Peters MD) GI (gastrointestinal bleed) (Acute) 58-year-old male with upper GI bleed 1. Patient had over 600 cc of fresh blood in his Gandhi bag connected to his PEG tube. Patient also had bright red bloody vomitus. 2. Patient has history of pancreatic cancer and he is being treated by the cancer centers of [place] and he is TPN dependent. According to the patient had a PEG tube placed because he has gastric outlet obstruction likely from his tumor. The patient recently had a lesion biopsied in the stomach 2 weeks ago. He reports that this bleed started approximately 3 hours ago. He feels as though his stomach is still full of blood. 3. I explained that I could perform an EGD in the emergency room to try to elucidate the source of the bleeding. I explained that if it was from the mass or uncontrollable stomach lesion I would transfer the patient. The risks of the procedure including not limited to bleeding, infection, aspiration, perforation of the GI tract. The patient understands the risks and is on to proceed with EGD. 4. Patient's hemoglobin is 9.5. He did receive 1 bolus of fluid I am giving him 1 more bolus of normal saline as he is still tachycardic. Gary Peters MD Pager: [facility] [address] [place] [address], [address] [place] [address] Office:
--- NOTE | 2018-04-06 15:49 | CON.PCM_ITS ---
Problem List (1) GI (gastrointestinal bleed) Status: Acute Qualifiers: GI bleed type/associated pathology: unspecified gastrointestinal hemorrhage type Qualified Code(s): K92.2 - Gastrointestinal hemorrhage, unspecified Reason for Consult Date of Consultation: 04/06/18 Reason for Consultation: Upper GI bleed History of Present Illness: The patient is a 58 year old M with past medical history of pancreatic cancer. The patient presented with bloody vomiting and blood in his G-tube. 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 He is TPN dependent. He reports that he had a lesion in his stomach on last EGD and it was biopsied 2 weeks ago. He said about a week ago he had one episode of GI bleeding which stopped spontaneously. He said that 3 hours ago he started having blood in his G-tube and he started having bloody vomitus. He denies any abdominal pain. He is not on any blood thinners currently. Past Medical History Medical History: Medical History (Last Updated 04/06/18 @ 15:44 by Gary Peters MD) Pancreas cancer C25.9 Allergies No Known Allergies Allergy (Verified 03/31/18 19:49) Home Medications: Ambulatory Orders Medication Instructions Recorded Bromelains [Bromelain] 500 gm MC BID 01/17/18 Dronabinol [Marinol] 2.5 mg PO BID 01/17/18 Susan 500 mg PO DAILY PRN 01/17/18 Lorazepam [Ativan] 1 mg PO Q6H PRN 01/17/18 Methylsulfonylmethane [MSM] 1,000 mg PO BID 01/17/18 Metoclopramide [Reglan] 10 mg PO TIDCM 01/17/18 Mirtazapine [Remeron] 15 mg PO QHS 01/17/18 Olanzapine [Zyprexa] 2.5 mg PO BREAKFAST 01/17/18 Olanzapine [Zyprexa] 2.5 mg PO LUNCH 01/17/18 Olanzapine [Zyprexa] 5 mg PO QHS 01/17/18 Ondansetron [Zofran Odt] 8 mg PO Q8H PRN PRN 01/17/18 Oxycodone [Oxyir] 5 mg PO Q6H PRN PRN 01/17/18 Pantoprazole Sodium [Protonix] 40 mg PO BID 01/17/18 Probiotic 01/17/18 Scopolamine [Transderm-Scop] 1.5 mg TD X1 PRN 01/17/18 Sucralfate [Carafate] 1 gm PO 4X/DAY 01/17/18 proMETHazine tablet [Phenergan 25 mg PO Q6H PRN PRN 01/17/18 tablet] Surgical History: - - PEG tube Smoking Status: Never smoker Drugs: None - *Family History Paternal History Items: No pertinent history Review of Systems Constitutional: Reports: Anorexia, Weight Change. Denies: Chills, Fever HEENT: Denies: Difficulty Hearing Cardiovascular: Denies: Chest Pain Respiratory: Denies: Cough, Shortness of Breath Gastrointestinal: Reports: Hematemesis, Nausea, Vomiting. Denies: Abdominal Pain Genitourinary: Denies: Dysuria Musculoskeletal: Denies: Joint Tenderness Skin: Denies: Dryness Neurological: Denies: Tingling Hematologic/ Lymphatic: Reports: Hx of blood clot. Denies: Petechiae, Purpura Patient Problems: Active and Suspected Problems (Last Updated 04/06/18 @ 15:44 by Gary Peters MD) GI (gastrointestinal bleed) (Acute) - Physical Exam General: Alert, Oriented x3, Cooperative HEENT: Atraumatic Oral: Dry Mucosa Neck: Supple Lungs: Normal air movement Cardiovascular: Regular Rhythm, Tachycardic Abdomen: Soft, Non-Distended, - - PEG tube with copious bright blood Extremities: No clubbing Skin: No rashes Musculoskeletal: Cachexia Neurological: Cranial nerves II-XII grossly intact Psych/Mental Status: Normal Affect Vital Signs Pulse Resp BP Pulse Ox 108 H 98 H 98/72 98 04/06/18 15:15 04/06/18 15:15 04/06/18 15:15 04/06/18 15:15 Oxygen Delivery Method Room Air Weight: 191 lb 12.835 oz Body Mass Index (BMI) 23.3 Intake and Output for Last 24 Hours 04/04/18 04/05/18 04/06/18 23:59 23:59 23:59 Output Total 650 / 650 Balance -650 / -650 Microbiology Past 72 Hours 04/06/18 15:00 Stool Occult Blood (YONI) - Final Stool Laboratory Tests Past 24 Hrs 1104/06/18 04/06/18 13:40 13:40 13:40 WBC 12.6 H RBC 2.99 L Hgb 9.2 L Hct 29.3 L MCV 98.0 H MCH 30.8 MCHC 31.4 L RDW 20.3 H RDW Differential 70.7 H Plt Count 204 MPV 10.3 Immature Gran % (Auto) 0.400 Neut % (Auto) 72.7 H Lymph % (Auto) 13.5 L [place] % (Auto) 11.8 H Eos % (Auto) 1.0 Baso % (Auto) 0.6 Absolute Neuts (auto) 9.2 H Absolute Lymphs (auto) 1.70 Total Counted Not Reportable Platelet Estimate ADEQUATE Polychromasia 1+ Hypochromasia 2+ Anisocytosis 2+ Macrocytosis 1+ PT 12.8 INR 1.0 APTT 21.7 L Sodium 144 Potassium 3.5 Chloride 106 Carbon Dioxide 25.0 Anion Gap 13 BUN 24 H Creatinine 0.81 Estim Creat Clear Calc 120.56 Est GFR (MDRD) Af Amer 125 Est GFR (MDRD) Non-Af 103 BUN/Creatinine Ratio 29.6 H Glucose 222 H Calcium 7.9 L Total Bilirubin 0.60 AST 58 H ALT 88 H Alkaline Phosphatase 392 H Troponin I < 0.015 Total Protein 5.7 L Albumin 2.1 L Globulin 3.6 Albumin/Globulin Ratio 0.6 L Lipase 290 Clinical Impression(s) from Imaging Studies Chest X-Ray 04/06/18 13:29 IMPRESSION: No acute infiltration is seen. Electronically Signed: Jewel Cabello MD at 14:37 EST Tel [phone], Service support , Abdomen/Pelvis CT 04/06/18 13:30 IMPRESSION: Distended stomach with heterogeneous appearance suggestive of a possible hemorrhage within the stomach. A PEG tube is seen along the anterior fundal portion of the stomach. Left perinephric and periureteric stranding with hydronephrosis. A double-J stent catheter is seen in situ. Mesenteric lymphadenopathy with increased markings in the left of the mesentery. Electronically Signed: Jewel Cabello MD at 14:36 EST Tel [phone], Service support , Assessment/Plan All Active Problems (Last Updated 04/06/18 @ 15:44 by Gary Peters MD) GI (gastrointestinal bleed) (Acute) 58-year-old male with upper GI bleed 1. Patient had over 600 cc of fresh blood in his Gandhi bag connected to his PEG tube. Patient also had bright red bloody vomitus. 2. Patient has history of pancreatic cancer and he is being treated by the cancer [facility] of [place] and he is TPN dependent. According to the patient had a PEG tube placed because he has gastric outlet obstruction likely from his tumor. The patient recently had a lesion biopsied in the stomach 2 weeks ago. He reports that this bleed started approximately 3 hours ago. He feels as though his stomach is still full of blood. 3. I explained that I could perform an EGD in the emergency room to try to elucidate the source of the bleeding. I explained that if it was from the mass or uncontrollable stomach lesion I would transfer the patient. The risks of the procedure including not limited to bleeding, infection, aspiration, perforation of the GI tract. The patient understands the risks and is on to proceed with EGD. 4. Patient's hemoglobin is 9.5. He did receive 1 bolus of fluid I am giving him 1 more bolus of normal saline as he is still tachycardic. Gary Peters MD Pager: [facility] [address] [place] [address], [address] [place] [address] Office:
[2018-04-06] MEDS: Etomidate 20 MG/10 ML Vial IV (16:21)
[2018-04-06] MEDS: fentaNYL 100 MCG/2 ML Ampul 50 MCG IV (16:21)
[2018-04-06] MEDS: 0.9% Normal Saline 1,000 ML 999 ML IV (16:32)
--- NOTE | 2018-04-06 16:41 | OP.ENDO_ITS ---
Patient Name: Víctor Hoskins Procedure Date: 04/06/2018 4:10 PM Date of : 1960 Age: 58 Procedure: Upper GI endoscopy Indications: Hematemesis Providers: Gary Peters MD Medicines: Monitored Anesthesia Care Patient Profile: This is a 58 year old male. Refer to note in patient chart for documentation of history and physical. Complications: No immediate complications. Procedure: Pre-Anesthesia Assessment: - Prior to the procedure, a History and Physical was performed, and patient medications and allergies were reviewed. The patient's tolerance of previous anesthesia was also reviewed. The risks and benefits of the procedure and the sedation options and risks were discussed with the patient. All questions were answered, and informed consent was obtained. Prior Anticoagulants: The patient has taken no previous anticoagulant or antiplatelet agents. After reviewing the risks and benefits, the patient was deemed in satisfactory condition to undergo the procedure. After obtaining informed consent, the endoscope was passed under direct vision. Throughout the procedure, the patient's blood pressure, pulse, and oxygen saturations were monitored continuously. The gastroscope was introduced through the mouth, and advanced to the second part of duodenum. There was copious blood and blood clot in the stomach. There appeared to be mass vs hypertrophied folds adjacent to PEG tube. There was no active bleeding in the duodenum or prepyloric region. Pylorus was traversed easily. The active bleed was unable to be localized due to the copious blood and the patient began to vomit blood during the procedure and it was aborted. The upper GI endoscopy was somewhat difficult due to excessive bleeding. Scope In: 4:22:35 PM Scope Out: 4:28:21 PM Total Procedure Duration Time 0 hours 5 minutes 46 seconds Findings: Red blood was found in the entire examined stomach. Red blood was found in the entire duodenum. Impression: - Red blood in the entire stomach. - Blood in the entire examined duodenum. - No specimens collected. Recommendation: - Transfer patient to another hospital. Transfuse 2 units. Patient may need IR embolization. - The patient has taken no previous anticoagulant or antiplatelet agents. Procedure Code(s): --- Professional --- 32792, Esophagogastroduodenoscopy, flexible, transoral; diagnostic, including collection of specimen(s) by brushing or washing, when performed (separate procedure) Diagnosis Code(s): --- Professional --- K92.2, Gastrointestinal hemorrhage, unspecified K92.0, Hematemesis CPT copyright 2017 [employer]. All rights reserved. The codes documented in this report are preliminary and upon entry level administrative assistant review may be revised to meet current compliance requirements. Gary Peters MD 04/06/2018 4:41:17 PM This report has been signed electronically. Number of Addenda: 0 Note Initiated On: 04/06/2018 4:10 PM
--- NOTE | 2018-04-06 17:14 | ED.VISSUMM ---
- ER Visit Summary Date of Service: 04/06/18 Chief Complaint: Gastrointestinal bleeding History of Present Illness: The patient is a 58 M who presents with gastrointestinal bleeding that became severe today. Patient states he has pain over the epigastric area. Patient has a G-tube due to gastric outlet obstruction. Patient has had large amount of blood in the bag through his G-tube. Patient also admits to some hematemesis today. Patient has a history of pancreatic cancer and a mass in his stomach. Patient is getting treatments from [facility] [place] [facility]. Patient states he goes to [place] monthly for his chemotherapy treatments. Patient was on anticoagulants for a DVT in his subclavian vein however this was stopped 1 month ago due to the bleeding. Patient denies any melena or hematochezia. Patient admits to some diarrhea. Physical Examination: Vital signs showed a blood pressure of 99/75 with a tachycardia of 120. Respirations were 20 and pulse oximeter is 99% on room air patient is in no acute distress. Oral mucosa is pink and moist. Neck is supple. Trachea is midline. There is no JVD noted. Heart was regular and tachycardic. Lungs are clear and equal bilaterally. Abdomen is soft. There is mild diffuse tenderness. There is no rebound or guarding noted. Rectal exam showed good sphincter tone. There were no masses palpated. Stool was guaiac negative. Cranial nerves II through XII are intact. There are no focal motor or sensory deficits noted. Test Results: CBC showed a hemoglobin of 9.2. This was relatively unchanged compared to prior results. White blood cell count was slightly elevated at 12.6. BUN was slightly elevated at 24. AST was 58, ALT was 88, and alk phos was 392. INR was normal at 1.0. PTT was 21.7. Troponin was normal at less than 0.015. Emergency Department Course and Treatment: Patient was given Zofran and IV fluids here. Patient was typed and crossmatched for 2 units of packed red blood cells due to his persistent bleeding. Case was discussed with Dr. Peters. He was in to evaluate the patient and performed an endoscopy here in the emergency department. It appeared as though the bleeding was coming from the mass in his stomach. He stated this is something he cannot take care of here at [facility]. He recommended transferring the patient to a tertiary care center. Patient and family request to go to the [facility] [place] [facility]. The case was discussed with the transfer center at [facility]. Patient will be transferred to the emergency department there for further evaluation of the gastrointestinal bleeding. Patient and family were advised that the [facility] will not be providing treatment options for the patient. Patient and family understood and were agreeable with the plan. All questions were answered. Disposition: Transferred Impression: 1. Gastrointestinal bleeding 2. History of metastatic pancreatic cancer This note was generated with [employer] dictation software. It may contain incorrect words, spelling, and punctuation that were not noted in review of the chart prior to signing ED Disposition - Plan for ED Patient: Disposition: [facility] Chief Complaint: GI Bleed Diagnosis: Gastrointestinal bleeding, upper, Pancreatic malignant neoplasm Referrals: Kleber Martin DO [Primary Care Provider] -
--- NOTE | 2018-04-06 17:21 | ED.DCSUM_ITS ---
- ER Visit Summary Date of Service: 04/06/18 Chief Complaint: Gastrointestinal bleeding History of Present Illness: The patient is a 58 M who presents with gastrointestinal bleeding that became severe today. Patient states he has pain over the epigastric area. Patient has a G-tube due to gastric outlet ob struction. Patient has had large amount of blood in the bag through his G-tube. Patient also admits to some hematemesis today. Patient has a history of pancreatic cancer and a mass in his stomach. Patient is getting treatments from [facility] [place] [facility] [place]. Patient states he goes to [place] monthly for his chemotherapy treatments. Patient was on anticoagulants for a DVT in his subclavian vein however this was stopped 1 month ago due to the bleeding. Patient denies any melena or hematochezia. Patient admits to some diarrhea. Physical Examination: Vital signs showed a blood pressure of 99/75 with a tachycardia of 120. Respirations were 20 and pulse oximeter is 99% on room air patient is in no acute distress. Oral mucosa is pink and moist. Neck is supple. Trachea is midline. There is no JVD noted. Heart was regular and tachycardic. Lungs are clear and equal bilaterally. Abdomen is soft. There is mild diffuse tenderness. There is no rebound or guarding noted. Rectal exam showed good sphincter tone. There were no masses palpated. Stool was guaiac negative. Cranial nerves II through XII are intact. There are no focal motor or sensory deficits noted. Test Results: CBC showed a hemoglobin of 9.2. This was relatively unchanged compared to prior results. White blood cell count was slightly elevated at 12.6. BUN was slightly elevated at 24. AST was 58, ALT was 88, and alk phos was 392. INR was normal at 1.0. PTT was 21.7. Troponin was normal at less than 0.015. Emergency Department Course and Treatment: Patient was given Zofran and IV fluids here. Patient was typed and crossmatched for 2 units of packed red blood cells due to his persistent bleeding. Case was discussed with Dr. Peters. He was in to evaluate the patient and performed an endoscopy here in the emergency department. It appeared as though the bleeding was coming from the mass in his stomach. He stated this is something he cannot take care of here at [facility]. He recommended transferring the patient to a tertiary care center. Patient and family request to go to the [facility] [place] [facility]. The case was discussed with the transfer center at [facility]. Patient will be transferred to the emergency department there for further evaluation of the gastrointestinal bleeding. Patient and family were advised that the [facility] will not be providing treatment options for the patient. Patient and family understood and were agreeable with the plan. All questions were answered. Disposition: Transferred Impression: 1. Gastrointestinal bleeding 2. History of metastatic pancreatic cancer This note was generated with [employer] dictation software. It may contain incorrect words, spelling, and punctuation that were not noted in review of the chart prior to signing ED Disposition - Plan for ED Patient: Disposition: [facility] Chief Complaint: GI Bleed Diagnosis: Gastrointestinal bleeding, upper, Pancreatic malignant neoplasm Referrals: Kleber Martin DO [Primary Care Provider] -
== END 2018-04-06 19:35 | disposition short-term general hospital (02) ==
PROVIDERS: Surgery; Emergency Provider Emergency Medicine; Family Provider Family Medicine; PCP Family Medicine
PROC: 0DJ08ZZ Inspection of Upper Intestinal Tract, Via Natural or Artificial Opening Endoscopic (ICD-10-PCS; CPT 43235; principal; 2018-04-06 16:15)
DX: K92.0 Hematemesis (principal); C25.9 Malignant neoplasm of pancreas, unspecified; R31.9 Hematuria, unspecified; R19.7 Diarrhea, unspecified; R00.0 Tachycardia, unspecified; Z93.1 Gastrostomy status; Z79.899 Other long term (current) drug therapy; Z86.718 Personal history of other venous thrombosis and embolism
CPT/HCPCS: 43235; 36430; 71046; 74176; 80053; 82274; 83690; 84484; 85025; 85610; 85730; 86850; 86900; 86920; 86922; 93005; 96361; 96374; 96375; 99283; J7030; J7040; P9016; A4216; J2405

== ENCOUNTER 2018-04-23 16:35 | Outpatient (RCR) | payer BC, SELFPAY ==
[2018-04-06 13:10] VITALS: BMI 23.3
[2018-04-23 17:01] LABS: Hematocrit 27.7 % (40-54); Hemoglobin 8.9 g/dl (13.0-16.5); Mean Corp Hgb Conc 32.1 g/gl (32-36); Mean Corpuscular Hgb 31.8 pg (27.0-32.0); Mean Corpuscular Volume 98.9 fL (80-94); Mean Platelet Vol. 11.9 fl (6.2-12.0); Platelet Count 133 K/mm3 (150-450); RBC Distribution Width CV 17.1 % (11.6-14.6); RBC Distribution Width SD 59.3 fl (35.1-43.9); White Blood Count 22.8 K/mm3 (4.4-11.0)
[2018-04-23 17:09] LABS: Scan Indicated on CBC? Y/N NO
[2018-04-23 18:49] LABS: ALB/GLOB Ratio 0.5 RATIO (0.9-2.4); AST(SGOT) 38 U/L (15-37); Alanine Aminotransfer ALT/SGPT 51 U/L (16-61); Albumin, Serum 1.9 g/dL (3.2-5.0); Alkaline Phosphatase 275 U/L (45-117); Anion Gap 7 (5-15); BUN 19 mg/dL (7-18); BUN/Creat Ratio 41.4 RATIO (10-20); Calcium,Total 7.6 mg/dL (8.5-10.1); Chloride 108 mmol/L (98-107); Creatinine, Serum 0.46 mg/dL (0.70-1.30); EST Glomerular Filtration Rate 200 mL/min (>60); Est Glom Filt Rate - Afr Amer 241 mL/min (>60); Globulin 3.5 g/dL (2.2-4.2); Glucose 77 mg/dL (74-106); Magnesium 1.4 mg/dL (1.6-2.6); Phosphorus 3.5 mg/dL (2.5-4.9); Potassium 3.8 mmol/L (3.5-5.1); Prealbumin 19.4 mg/dL (20.0-40.0); Protein, Total 5.4 g/dL (6.4-8.2); Sodium Level 141 mmol/L (136-145)
--- OUTSIDE RECORDS SUMMARY | 2018-06-10 01:35 | XMS RPT_ITS ---
:1960 Author Organization OHIP Support Name Relationship Address Phone FED EX Unavailable [address] [place] [address] PALFENIER, SHAWN Unavailable [address] + [place] [address] FED EX Unavailable [address] [place] [address] PALFENIER, SHAWN Unavailable [address] + [place] [address] FED EX Unavailable [address] [place] [address] PALFENIER, SHAWN Unavailable [address] + [place] [address] FED EX Unavailable [address] [place] [address] PALFENIER, SHAWN Unavailable [address] + [place] [address] PALFENIER, SHAWN Unavailable [address] [address] EVANS NEWELL Unavailable Unavailable Unavailable FED EX Unavailable [address] [place] [address] PALFENIER, SHAWN Unavailable [address] + [place] [address] FED EX Unavailable [address] [place] [address] PALFENIER, SHAWN Unavailable [address] + [place] [address] FED EX Unavailable [address] [place] [address] PALFENIER, SHAWN Unavailable [address] + [place] [address] FED EX Unavailable [address] [place] [address] PALFENIER, SHAWN Unavailable [address] + [place] [address] FED EX Unavailable [address] [place] [address] PALFENIER, SHAWN Unavailable [address] + [place] [address] FED EX Unavailable [address] [place] [address] PALFENIER, SHAWN Unavailable [address] + [place] [address] FED EX Unavailable [address] [place] [address] PALFENIER, SHAWN Unavailable [address] + [place] [address] FED EX Unavailable [address] [place] [address] PALFENIER, SHAWN Unavailable [address] + [place] [address] FED EX Unavailable [address] [place] [address] PALFENIER, SHAWN Unavailable [address] + [place] [address] FED EX Unavailable [address] [place] [address] PALFENIER, SHAWN Unavailable [address] + [place] [address] FED EX Unavailable [address] [place] [address] PALFENIER, SHAWN Unavailable [address] + [place] [address] FED EX Unavailable [address] [place] [address] PALFENIER, SHAWN Unavailable [id number] + [place] [address] FED EX Unavailable [address] [place] [address] PALFENIER, SHAWN Unavailable [id number] + [place] [address] FED EX Unavailable [address] [place] [address] PALFENIER, SHAWN Unavailable [address] + [place] [address] FED EX Unavailable [address] [place] [address] PALFENIER, SHAWN Unavailable [address] + [place] [address] Care Team Providers Name Role Phone MARCY CARBONE (FEL) Referring Unavailable AVINA, HALEY E Admitting Unavailable AVINA, HALEY E Attending Unavailable AVINA, HALEY E Admitting Unavailable AVINA, HALEY E Attending Unavailable JOSE [facility]ERS ([facility]) Referring Unavailable CHAMBERSJOSE EDUARDO DOWLING ([facility]) Referring Unavailable TIFFANY WILL Admitting Unavailable TIFFANY WILL Attending Unavailable CONSULT, NUTRITION TPN APPROVAL Consulting Unavailable RADHA GRACIABHLEEN Attending Unavailable BRITTANI, PRABHLEEN Referring Unavailable BRITTANI, PRABHLEEN Admitting Unavailable BRITTANI, PRABHLEEN Attending Unavailable BRITTANI, PRABHLEEN Attending Unavailable SUGUMAR, MARCY (FEL) Referring Unavailable AVINA, HALEY E Attending Unavailable YOHANA DOLAN Referring Unavailable AVINA, HALEY E Attending Unavailable AVINA, HALEY E Referring Unavailable EL HELLEN, ELIJAH M Admitting Unavailable EL HELLEN, ELIJAH M Attending Unavailable AAYUSH VIGIL Attending Unavailable EL HELLEN, ELIJAH M Referring Unavailable EL HELLEN, ELIJAH M Referring Unavailable ZANDER, DAVENDRA Attending Unavailable EL HELLEN, ELIJAH M Referring Unavailable ZANDER, DAVENDRA Referring Unavailable ZANDER, DAVENDRA Referring Unavailable JO[facility] ([facility]) Attending Unavailable ZANDER, DAVENDRA Referring Unavailable ZANDER, DAVENDRA Referring Unavailable ZANDER, DAVENDRA Referring Unavailable JO[facility]ARD[facility] ([facility]) Attending Unavailable ZANDER, DAVENDRA Referring Unavailable ZANDER, DAVENDRA Referring Unavailable JERO MAE () Attending Unavailable ZANDER, DAVENDRA Referring Unavailable ZANDER, DAVENDRA Referring Unavailable ZANDER, DAVENDRA Attending Unavailable ZANDER, DAVENDRA Referring Unavailable JERO MAE () Attending Unavailable JERO MAE () Referring Unavailable Avina, Haley Attending Unavailable PAVEL LI Referring Unavailable Primay Care Physicia, No Primary Care Unavailable PAVEL LI Attending Unavailable DOCTOR, OUT OF TOWN Attending Unavailable PAVEL LI Referring Unavailable Primay Care Physicia, No Primary Care Unavailable Avina, Haley Attending Unavailable Avina, Haley Referring Unavailable Primay Care Physicia, No Primary Care Unavailable Avina, Haley Attending Unavailable Avina, Haley Referring Unavailable Primay Care Physicia, No Primary Care Unavailable Primay Care Physicia, No Primary Care Unavailable Yohana Rachel Attending Unavailable Yohana Rachel Attending Unavailable RachelYohana Referring Unavailable Primay Care Physicia, No Primary Care Unavailable Primay Care Physicia, No Primary Care Unavailable Tha Howard Attending Unavailable Barron Lozada Attending Unavailable Mario, Barron Primary Care Unavailable Avina, Haley Attending Unavailable Avina, Haley Referring Unavailable Mario, Barron Primary Care Unavailable Mario, Barron Primary Care Unavailable Judah Ortiz Attending Unavailable Avina, Haley Attending Unavailable Avina, Haley Referring Unavailable Primay Care Physicia, No Primary Care Unavailable Avina, Haley Attending Unavailable Avina, Haley Referring Unavailable Avina, Haley Primary Care Unavailable Avina, Haley Attending Unavailable Avina, Haley Referring Unavailable Avina, Haley Primary Care Unavailable Avina, Haley Attending Unavailable Avina, Haley Referring Unavailable Avina, Haley Primary Care Unavailable PAVEL LI Referring Unavailable Mario, Barron Primary Care Unavailable PAVEL LI Consulting Unavailable Darren Verdin Attending Unavailable Mario, Barron Primary Care Unavailable Danny De La Rosa Attending Unavailable Gary Peters Attending Unavailable Mario, Barron Primary Care Unavailable Avina, Haley Attending Unavailable Avina, Haley Referring Unavailable Mario, Barron Primary Care Unavailable PROBLEMS PROBLEMS DATE TYPE CONDITION / CODE ATTENDING STATUS SOURCE 06/05/2018 Unknown C25.9 - Malignant Haley Avina Active [place] neoplasm of [facility] pancreas, Hospital unspecified / Repository C25.9(ICD-10) 04/06/2018 Admitting Other specified TIFFANY WILL Active [facility] diagnosis health status / University Z78.9(ICD-10) [facility] Repository 11/03/2017 Active Nausea / NA Active [place] R11.0(ICD-10) Clinic Other [place] Repository 10/05/2017 Active Malignant neoplasm NA Active [place] of pancreas, Clinic Main unspecified / [place] C25.9(ICD-10) Repository 10/05/2017 Active Encounter for HALEY AVINA Active [place] adjustment and E Clinic Other management of [place] vascular access Repository device / Z45.2(ICD-10) 09/16/2017 Active Biliary acute EL ELIJAH MACEDO Active [place] pancreatitis with M Clinic Main uninfected necrosis [place] / K85.11(ICD-10) Repository 05/16/2017 Active Moderate EL ELIJAH MACEDO Active [place] protein-calorie [facility] Main malnutrition / [place] E44.0(ICD-10) Repository 08/24/2017 Active Calculus of HALEY AVINA Active [place] gallbladder without E Clinic Other cholecystitis [place] without obstruction Repository / K80.20(ICD-10) 06/07/2017 Active Cyst of pancreas / [facility], Active [place] K86.2(ICD-10) PRABHLEEN [facility] Main [place] Repository 06/07/2017 Active 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 REPOSITORY TYPE CODE TESTS RESULT OUT OF RANGE REFERENCE UNITS LAB L100.1000 4.4-11.0 K/mm3 High alert WBC 30.2 Result Comment: RESULTS CALLED TO GENA NOEL 06/05/18 1502 Kita Upton. REPORT READ BACK BY SAME. LAB L100.1200 4.6-6.2 M/mm3 Low RBC 2.78 LAB L100.1300 13.0-16.5 g/dl Low HGB 8.8 LAB L100.1400 40-54 % Low HCT 27.7 LAB L100.1500 80-94 fL High MCV 99.6 LAB L100.1600 27.0-32.0 pg Normal MCH 31.7 LAB L100.1700 32-36 g/gl Low MCHC 31.8 LAB L100.1810 11.6-14.6 % High RDW 19.1 CV LAB L100.1820 35.1-43.9 fl High RDW 70.7 SD LAB L100.1900 150-450 K/mm3 Low PLT 93 LAB L100.2000 6.2-12.0 fl Normal MPV 10.9 LAB L100.9900 Normal PATH May REV foll Performed By: #### L100.0500, L100.4500 #### [facility] [address] [place], [place], [address] DIFFERENTIAL COMMENT Collected: 06/05/2018 Status: F Source: [place] 11:[address] [facility] REPOSITORY TYPE CODE TESTS RESULT OUT OF RANGE REFERENCE UNITS LAB L100.4500 Normal SMEAR COMMENT SCANNED Result Comment: LEUKOCYTOSIS NOTED 2+ ANISOCYTOSIS, 1+ MICRO, 1+ MACRO Performed By: #### L100.0500, L100.4500 #### [facility] [address] [place], [address] COMPREHENSIVE METABOLIC Collected: 06/05/2018 Status: F Source: [facility] 11:[address] [facility] REPOSITORY TYPE CODE TESTS RESULT OUT OF RANGE REFERENCE UNITS LAB L501.0100 74-106 mg/dL Low GLU 57 Result Comment: Please note revised GLUCOSE reference range effective 2017. LAB L501.1000 7-18 mg/dL High BUN 23 LAB L501.1100 0.70-1.30 mg/dL Low CREAT,SERUM 0.45 Result Comment: The validity of the calculated GFR AND GFRAA in patients over 70 years has not been determined. Clinical correlation is essential. LAB L501.1110 >60 mL/min Normal EST GFR 206 Result Comment: Non- GFR Calc LAB L501.1115 >60 mL/min Normal EST GFR - AA 249 Result Comment: GFR Calc LAB L501.1300 10-20 RATIO High BUN/CRE 51.6 LAB L501.1500 6.4-8.2 g/dL Low T PROT 5.6 LAB L501.1800 3.2-5.0 g/dL Low ALB 2.2 LAB L501.1950 2.2-4.2 g/dL Normal GLOB 3.4 LAB L501.2000 0.9-2.4 RATIO Low A/G 0.6 LAB L501.2200 8.5-10.1 mg/dL Low CA 7.9 LAB L501.4100 15-37 U/L High AST 115 LAB L501.4305 45-117 U/L High ALK P 342 LAB L501.4405 16-61 U/L High ALT 143 LAB L501.4600 0.20-1.00 mg/dL T Normal BILI 0.80 LAB L501.5300 136-145 mmol/L NA Normal 142 LAB L501.5600 3.5-5.1 mmol/L Low K 3.4 LAB L501.5900 98-107 mmol/L CL Normal 103 LAB L501.6100 21.0-32.0 mmol/L Normal CO2 31.0 LAB L501.6200 5-15 Normal GAP 8 Performed By: #### L500.4050, L501.2300, L501.5200, L506.0500 #### [facility] [address] [place], [address] PHOSPHORUS Collected: 06/05/2018 Status: F Source: [place] 11:[address] [facility] REPOSITORY TYPE CODE TESTS RESULT OUT OF RANGE REFERENCE UNITS LAB L501.2300 2.5-4.9 mg/dL Normal PHOS 3.2 Performed By: #### L500.4050, L501.2300, L501.5200, L506.0500 #### [facility] [address] [place], [address] MAGNESIUM Collected: 06/05/2018 Status: F Source: [place] 11:[address] [facility] REPOSITORY TYPE CODE TESTS RESULT OUT OF RANGE REFERENCE UNITS LAB L501.5200 1.6-2.6 mg/dL Normal MG 1.9 Performed By: #### L500.4050, L501.2300, L501.5200, L506.0500 #### [facility] [address] [place], [address] PREALBUMIN Collected: 06/05/2018 Status: F Source: [place] 11:[address] [facility] REPOSITORY TYPE CODE TESTS RESULT OUT OF RANGE REFERENCE UNITS LAB L506.0500 20.0-40.0 mg/dL Normal PREALBUMIN 24.9 Performed By: #### L500.4050, L501.2300, L501.5200, L506.0500 #### [facility] [address] [place], [address] CBC-COMPLETE BLOOD CNT Collected: 05/28/2018 Status: F Source: [place] NO DIFF 1:[address] [facility] REPOSITORY TYPE CODE TESTS RESULT OUT OF RANGE REFERENCE UNITS LAB L100.1000 4.4-11.0 K/mm3 Normal WBC 8.5 LAB L100.1200 4.6-6.2 M/mm3 Low RBC 3.10 LAB L100.1300 13.0-16.5 g/dl Low HGB 9.8 LAB L100.1400 40-54 % Low HCT 30.6 LAB L100.1500 80-94 fL High MCV 98.7 LAB L100.1600 27.0-32.0 pg Normal MCH 31.6 LAB L100.1700 32-36 g/gl Normal MCHC 32.0 LAB L100.1810 11.6-14.6 % High RDW CV 19.9 LAB L100.1820 35.1-43.9 fl High RDW SD 71.2 LAB L100.1900 150-450 K/mm3 Low PLT 149 LAB L100.2000 6.2-12.0 fl Normal MPV 11.6 Performed By: #### L100.0500, L100.4500 #### [facility] [address] [facility] [place], [place], [address] DIFFERENTIAL COMMENT Collected: 05/28/2018 Status: F Source: [place] 1:[address] [facility] REPOSITORY TYPE CODE TESTS RESULT OUT OF RANGE REFERENCE UNITS LAB L100.4500 Normal SMEAR COMMENT Result Comment: 2+ ANISOCYTOSIS RARE TEAR DROP Performed By: #### L100.0500, L100.4500 #### [facility] [address] [place], [address] COMPREHENSIVE METABOLIC Collected: 05/28/2018 Status: F Source: [facility] 1:[address] [facility] REPOSITORY Order Comment: FAX RESULTS TO [id number] AND ALSO [id number]. ALSO FAX TYPE CODE TESTS RESULT OUT OF RANGE REFERENCE UNITS LAB L501.0100 74-106 mg/dL Normal GLU 94 Result Comment: Please note revised GLUCOSE reference range effective 2017. LAB L501.1000 7-18 mg/dL High BUN 22 LAB L501.1100 0.70-1.30 mg/dL Low CREAT,SERUM 0.68 Result Comment: The validity of the calculated GFR AND GFRAA in patients over 70 years has not been determined. Clinical correlation is essential. LAB L501.1110 >60 mL/min Normal EST GFR 127 Result Comment: Non- GFR Calc LAB L501.1115 >60 mL/min Normal EST GFR - AA 153 Result Comment: GFR Calc LAB L501.1300 10-20 RATIO High BUN/CRE 32.3 LAB L501.1500 6.4-8.2 g/dL T Normal PROT 6.4 LAB L501.1800 3.2-5.0 g/dL Low ALB 2.6 LAB L501.1950 2.2-4.2 g/dL Normal GLOB 3.8 LAB L501.2000 0.9-2.4 RATIO Low A/G 0.7 LAB L501.2200 8.5-10.1 mg/dL Low CA 8.2 LAB L501.4100 15-37 U/L High AST 77 LAB L501.4305 45-117 U/L High ALK P 507 LAB L501.4405 16-61 U/L High ALT 76 LAB L501.4600 0.20-1.00 mg/dL T Normal BILI 0.70 LAB L501.5300 136-145 mmol/L NA Normal 142 LAB L501.5600 3.5-5.1 mmol/L Low K 3.2 LAB L501.5900 98-107 mmol/L CL Normal 106 LAB L501.6100 21.0-32.0 mmol/L Normal CO2 24.0 LAB L501.6200 5-15 Normal GAP 12 Performed By: #### L500.4050, L501.2300, L501.5200, L506.0500 #### [facility] [address] [facility] [place], [address] PHOSPHORUS Collected: 05/28/2018 Status: F Source: [place] 1:[address] [facility] REPOSITORY Order Comment: FAX RESULTS TO [id number] AND ALSO [id number]. ALSO FAX TYPE CODE TESTS RESULT OUT OF RANGE REFERENCE UNITS LAB L501.2300 2.5-4.9 mg/dL Normal PHOS 2.5 Performed By: #### L500.4050, L501.2300, L501.5200, L506.0500 #### [facility] [address] [facility] [place], [address] MAGNESIUM Collected: 05/28/2018 Status: F Source: [place] 1:[address] [facility] REPOSITORY Order Comment: FAX RESULTS TO [id number] AND ALSO [id number]. ALSO FAX TYPE CODE TESTS RESULT OUT OF RANGE REFERENCE UNITS LAB L501.5200 1.6-2.6 mg/dL Normal MG 1.7 Performed By: #### L500.4050, L501.2300, L501.5200, L506.0500 #### [facility] [address] [place], [address] PREALBUMIN Collected: 05/28/2018 Status: F Source: [place] 1:[address] [facility] REPOSITORY Order Comment: FAX RESULTS TO [id number] AND ALSO [id number]. ALSO FAX TYPE CODE TESTS RESULT OUT OF REFERENCE UNITS RANGE LAB L506.0500 20.0-40.0 mg/dL Low PREALBUMIN 19.4 Performed By: #### L500.4050, L501.2300, L501.5200, L506.0500 #### [facility] [address] [facility] [place], [address] EMERGENCY DEPARTMENT Observed: 05/24/2018 Status: F Source: [place] SUMMARY 5:[address] [facility] REPOSITORY [facility] Medical Records Department [address] [place] [address] Emergency Department Summary 05/24/18 1614 MR#: [id number] Acct: [id number] Name: EVANS NEWELL Rep #: [id number] : 1960 58 From: Judah Ortiz MD PCP: Barron Lozada DO Status: DEP ER - ER Visit Summary Date of Service: 05/24/18 Chief Complaint: Oozing from G-tube History of Present Illness: The patient is a [address] Lozada and Dr. Mcgee, an [facility] [place]. He reports that he has a history of pancreatic cancer. His last chemo was 10 days ago. He is scheduled to have course #11 in 4 days. He had a G-tube placed in [place] [address] Parra. He reports that he began having oozing from around the site last night. He does report that it feels sore. 6 out of 10 at worst and 4-10 currently. Is worsened by nothing relieved by nothing. He denies any associated fever or chills. He he has chronic nausea that is unchanged. He is not vomited. He also has chronic diarrhea that is unchanged. He denies any blood in his stools or black tarry stools. Physical Examination: Vitals: 98.4, 114/71, 102, 18, 90% room air which is not hypoxic. General: Well-nourished and well-developed. Head: Normocephalic atraumatic. Neck: Supple, no lymphadenopathy. No JVD. Nontender. Cardiovascular: Regular rate and rhythm. No murmurs. Respiratory: No respiratory distress. Clear to auscultation bilaterally. Abdominal: Soft, mild epigastric tenderness to palpation, nondistended, normal bowel sounds. No guarding, rebound, or peritoneal signs. G-tube site shows minimal surrounding erythema. There is no induration. There is a small amount of purulent drainage on the dressing. I am unable to express any purulent drainage. Back: Nontender. Extremities: Nontender, no edema. Skin: Normal color, no rash. Neurologic: Alert and oriented 3. Cranial nerves II through XII are intact. Normal strength and sensation. Psych: Normal affect. Test Results: CBC is marked for a white count of 5.8 with an H AND H of 8.2 25.4, platelets 59, monocytes of 11. His hemoglobin was 8.0 on May 21. Is range between 8-9.7 since March 2018. Chem-7 is more for calcium 8.2, glucose 117, BUN of 21, creatinine 0.48. LFTs marked total protein 5.8 and albumin 2.2. His alk phos was 390. Lactic acid is 1.3. Emergency Department Course and Treatment: Patient reports he had a similar episode approximately 1 month ago that seemed to resolve with Levaquin and amoxicillin. He had a culture obtained that shows E. coli, Klebsiella, and staph. The patient was given a dose of vancomycin and Levaquin IV. He is resting comfortably. Treatment Plan: Patient feels well and would like to go home. A culture was obtained. He will be discharged on Levaquin to cover E. coli and Klebsiella. I will use doxycycline rather than amoxicillin to also cover MRSA. Family is happy with this plan. Follow-up with Dr. Lozada in 2 days for a wound check. Return to the emergency department for any worsening symptoms. Disposition: To home in improved and stable condition. Impression: 1. G-tube infection. 2. Pancreatic cancer and chemotherapy. 3. Anemia. This note was generated with 3ROAMation software. It may contain incorrect words, spelling, and punctuation that were not noted in review of the chart prior to signing ED Disposition - Plan for ED Patient: Chief Complaint: Wound Check Instructions: ED Wound Infec After Surgery Prescriptions: Levofloxacin [Levaquin] 750 mg PO DAILY #7 tablet Doxycycline 100 mg PO BID #14 capsule Referrals: Barron Lozada, [Primary Care Provider] - 2 Days for wound check What to do if you have Problems For any increased pain, shortness of breath, bleeding, nausea or vomiting, chest pain, or any unexpected problems, contact your Primary Care Provider. Call [facility] ([phone]) or report to the closest Emergency Room. Call 911 if necessary. 05/24/18 1746 <Electronically signed by Judah Ortiz MD> Date Judah Ortiz MD Cosigner Signature (If Indicated): Date CC: Barron Lozada DO Observed: 05/24/2018 Status: F Source: [place] CULTURE, WOUND 1:[address] [facility] REPOSITORY Gram Stain Gram Stain 1+ Gram positive cocci Wound Culture ORGANISM 1: Streptococcus constellatus pha Amount Growth 2+ ORGANISM 2: Presumptive C albicans Amount Growth Very Rare Streptococcus constellatus pha: REACTION Ampicillin $ <=0.25 S Clindamycin $$ >=1 R Erythromycin $ >=8 R Tigecycline $$$$ <=0.5 S Vancomycin $ 0.5 S (NF) indicates non-formulary drug at [facility]. Approval by Infectious Disease Specialist required before non-formulary drugs may be ordered and/or dispensed. * CLSI guidelines does not recommend testing of cephalosporins. This interpretation is deduced from Beta-lactam/penicillin results. Performed By: #### M100.1400 #### [facility] [address] [place], [address] Observed: 05/24/2018 Status: F Source: [place] CULTURE, BLOOD (WB) 1:[address] [facility] REPOSITORY BC No growth in 5 days. Performed By: #### M200.1000 #### [facility] [address] [place], [address] CBC W/DIFF, AUTOMATED Collected: 05/24/2018 Status: F Source: [place] 12:[address] [facility] REPOSITORY TYPE CODE TESTS RESULT OUT OF RANGE REFERENCE UNITS LAB L100.1000 4.4-11.0 K/mm3 Normal WBC 5.8 LAB L100.1200 4.6-6.2 M/mm3 Low RBC 2.61 LAB L100.1300 13.0-16.5 g/dl Low HGB 8.2 LAB L100.1400 40-54 % Low HCT 25.4 LAB L100.1500 80-94 fL High MCV 97.3 LAB L100.1600 27.0-32.0 pg Normal MCH 31.4 LAB L100.1700 32-36 g/gl Normal MCHC 32.3 LAB L100.1810 11.6-14.6 % High RDW CV 18.9 LAB L100.1820 35.1-43.9 fl High RDW SD 64.9 LAB L100.1900 150-450 K/mm3 Low PLT 59 LAB L100.2000 6.2-12.0 fl High MPV 12.6 LAB L100.2100 47-70 % Normal NEUT% 65.4 LAB L100.2200 19-41 % Normal LY% 22.2 LAB L100.2300 0-10 % High MONO% 11.4 LAB L100.2400 0-5 % Normal EO% 0.3 LAB L100.2500 0-1 % Normal BASO% 0.2 LAB L100.2550 0.0-0.9 % Normal IM GRAN % 0.500 Result Comment: IG% - Immature Granulocytes (promyelocytes, myelocytes and metamyelocytes) > 1% indicates that a LEFT SHIFT is Present. LAB L100.2620 2.0-7.7 X10 3/uL Normal Absolute Neut 3.8 LAB L100.2720 0.83-4.51 X10 3/ul Normal Absolute Lymph 1.29 Performed By: #### L100.0100 #### [facility] [address] [place], [address] COMPREHENSIVE METABOLIC Collected: 05/24/2018 Status: F Source: [facility] 12:[address] [facility] REPOSITORY TYPE CODE TESTS RESULT OUT OF RANGE REFERENCE UNITS LAB L501.0100 74-106 mg/dL High GLU 117 Result Comment: Fasting Glucose result from 100 to 125 mg/dL suggests IMPAIRED HOMEOSTASIS per A.D.A. criteria. Please note revised GLUCOSE reference range effective 2017. LAB L501.1000 7-18 mg/dL High BUN 21 LAB L501.1100 0.70-1.30 mg/dL Low CREAT,SERUM 0.48 Result Comment: The validity of the calculated GFR AND GFRAA in patients over 70 years has not been determined. Clinical correlation is essential. LAB L501.1110 >60 mL/min Normal EST GFR 190 Result Comment: Non- GFR Calc LAB L501.1115 >60 mL/min Normal EST GFR - AA 230 Result Comment: GFR Calc LAB L501.1255 ml/min Normal Estimated CRCL 203.44 LAB L501.1300 10-20 RATIO High BUN/CRE 43.9 LAB L501.1500 6.4-8. g/dL Low 2 T PROT 5.8 LAB L501.1800 3.2-5. g/dL Low 0 ALB 2.2 LAB L501.1950 2.2-4. g/dL 2 GLOB Normal 3.6 LAB L501.2000 0.9-2. RATIO Low 4 A/G 0.6 LAB L501.2200 8.5-10 mg/dL Low .1 CA 8.2 LAB L501.4100 15-37 U/L AST Normal 33 LAB L501.4305 45-117 U/L High ALK P 390 LAB L501.4405 16-61 U/L ALT Normal 52 LAB L501.4600 0.20-1 mg/dL .00 T BILI Normal 0.70 LAB L501.5300 136-14 mmol/L 5 NA Normal 143 LAB L501.5600 3.5-5. mmol/L 1 K Normal 3.8 LAB L501.5900 98-107 mmol/L CL Normal 107 LAB L501.6100 21.0-3 mmol/L 2.0 CO2 Normal 27.0 LAB L501.6200 5-15 GAP Normal 9 Performed By: #### L500.4050 #### [facility] [address] [place], [address] LACTIC ACID Collected: 05/24/2018 Status: F Source: [facility] [facility] [facility] [facility] Order Comment: Yes/No query for Sepsis Lactate Rule Y TYPE CODE TESTS RESULT OUT OF RANGE REFERENCE UNITS LAB L503.6005 0.4-2.0 mmol/L Normal LACTIC ACID 1.3 Performed By: #### L503.6005 #### [facility] [address] [facility] [place], [address] Observed: 05/24/2018 Status: F Source: [place] CULTURE, BLOOD (WB) 12:[address] [facility] REPOSITORY BC No growth in 5 days. Performed By: #### M200.1000 #### [facility] [address] [place], [address] BASIC METABOLIC Collected: 05/21/2018 Status: F Source: [place] PROFILE (BMP) 11:[address] [facility] REPOSITORY TYPE CODE TESTS RESULT OUT OF RANGE REFERENCE UNITS LAB L501.0100 74-106 mg/dL Normal GLU 95 Result Comment: Please note revised GLUCOSE reference range effective 2017. LAB L501.1000 7-18 mg/dL High BUN 20 LAB L501.1100 0.70-1.30 mg/dL Low CREAT,SERUM 0.45 Result Comment: The validity of the calculated GFR AND GFRAA in patients over 70 years has not been determined. Clinical correlation is essential. LAB L501.1110 >60 mL/min Normal EST GFR 204 Result Comment: Non- GFR Calc LAB L501.1115 >60 mL/min Normal EST GFR - AA 247 Result Comment: GFR Calc LAB L501.1300 10-20 RATIO High BUN/CRE 44.4 LAB L501.2200 8.5-10.1 mg/dL Low CA 7.6 LAB L501.5300 136-145 mmol/L NA Normal 144 LAB L501.5600 3.5-5.1 mmol/L K Normal 3.5 LAB L501.5900 98-107 mmol/L High CL 109 LAB L501.6100 21.0-32.0 mmol/L Normal CO2 26.0 LAB L501.6200 5-15 Normal GAP 9 Performed By: #### L500.2500, L501.2300, L501.5200, L506.0500 #### [facility] [address] [place], [place], [id number] PHOSPHORUS Collected: 05/21/2018 Status: F Source: [place] 11:[address] [facility] REPOS[facility]ORY TYPE CODE TESTS RESULT OUT OF RANGE REFERENCE UNITS LAB L501.2300 2.5-4.9 mg/dL Normal PHOS 2.5 Performed By: #### L500.2500, L501.2300, L501.5200, L506.0500 #### [facility] [address] [place], [place], [address] MAGNESIUM Collected: 05/21/2018 Status: F Source: [place] 11:[address] [facility]POS[facility] TYPE CODE TESTS RESULT OUT OF RANGE REFERENCE UNITS LAB L501.5200 1.6-2.6 mg/dL Normal MG 1.7 Performed By: #### L500.2500, L501.2300, L501.5200, L506.0500 #### [facility] [address] [place], [address] PREALBUMIN Collected: 05/21/2018 Status: F Source: [place] 11:[address] [facility] REPOS[facility]ORY TYPE CODE TESTS RESULT OUT OF REFERENCE UNITS RANGE LAB L506.0500 20.0-40.0 mg/dL Low PREALBUMIN 19.8 Performed By: #### L500.2500, L501.2300, L501.5200, L506.0500 #### [facility] [address] [place], [address] CBC W/DIFF, AUTOMATED Collected: 05/21/2018 Status: F Source: ARANZA 11:[address] [facility] REPOS[facility] TYPE CODE TESTS RESULT OUT OF RANGE REFERENCE UNITS LAB L100.1000 4.4-11.0 K/mm3 Normal WBC 9.8 LAB L100.1200 4.6-6.2 M/mm3 Low RBC 2.56 LAB L100.1300 13.0-16.5 g/dl Low HGB 8.0 LAB L100.1400 40-54 % Low HCT 24.7 LAB L100.1500 80-94 fL High MCV 96.5 LAB L100.1600 27.0-32.0 pg Normal MCH 31.3 LAB L100.1700 32-36 g/gl Normal MCHC 32.4 LAB L100.1810 11.6-14.6 % High RDW CV 18.7 LAB L100.1820 35.1-43.9 fl High RDW SD 64.6 LAB L100.1900 150-450 K/mm3 Low PLT 81 LAB L100.2000 6.2-12.0 fl Normal MPV 11.8 LAB L100.2100 47-70 % High NEUT% 83.8 LAB L100.2200 19-41 % Low LY% 12.4 LAB L100.2300 0-10 % Normal MONO% 2.8 LAB L100.2400 0-5 % Normal EO% 0.5 LAB L100.2500 0-1 % Normal BASO% 0.1 LAB L100.2550 0.0-0.9 % Normal IM GRAN % 0.400 Result Comment: IG% - Immature Granulocytes (promyelocytes, myelocytes and metamyelocytes) > 1% indicates that a LEFT SHIFT is Present. LAB L100.2620 2.0-7.7 X10 3/uL High Absolute Neut 8.2 LAB L100.2720 0.83-4.51 X10 3/ul Normal Absolute Lymph 1.21 LAB L100.4500 Normal SMEAR COMMENT COMMENT Result Comment: SLIDE SCANNED - RARE PLT CLUMPS SEEN. Performed By: #### L100.0100 #### [facility] [address] [place], [place], [address] CBC-COMPLETE BLOOD CNT Collected: 05/07/2018 Status: F Source: ARANZA NO DIFF 1:[address] [facility] REPOS[facility]ORY Order Comment: SEND A FAX TO DR BARRON LOZADA ALSO TYPE CODE TESTS RESULT OUT OF RANGE REFERENCE UNITS LAB L100.1000 4.4-11.0 K/mm3 Normal WBC 6.4 LAB L100.1200 4.6-6.2 M/mm3 Low RBC 2.72 LAB L100.1300 13.0-16.5 g/dl Low HGB 8.4 LAB L100.1400 40-54 % Low HCT 26.0 LAB L100.1500 80-94 fL High MCV 95.6 LAB L100.1600 27.0-32.0 pg Normal MCH 30.9 LAB L100.1700 32-36 g/gl Normal MCHC 32.3 LAB L100.1810 11.6-14.6 % High RDW CV 16.5 LAB L100.1820 35.1-43.9 fl High RDW SD 56.7 LAB L100.1900 150-450 K/mm3 Low PLT 72 LAB L100.2000 6.2-12.0 fl Normal MPV 10.9 Performed By: #### L100.0500 #### [facility] [address] [place], [place], [address] COMPREHENSIVE METABOLIC Collected: 05/07/2018 Status: F Source: [place]AN[place] PROFIL 1:[address] [facility]POS[facility] Order Comment: SEND A FAX TO DR BARRON LOZADA ALSO TYPE CODE TESTS RESULT OUT OF RANGE REFERENCE UNITS LAB L501.0100 74-106 mg/dL Normal GLU 106 Result Comment: Fasting Glucose result from 100 to 125 mg/dL suggests IMPAIRED HOMEOSTASIS per A.D.A. criteria. Please note revised GLUCOSE reference range effective 2017. LAB L501.1000 7-18 mg/dL Normal BUN 18 LAB L501.1100 0.70-1.30 mg/dL Low CREAT,SERUM 0.46 Result Comment: The validity of the calculated GFR AND GFRAA in patients over 70 years has not been determined. Clinical correlation is essential. LAB L501.1110 >60 mL/min Normal EST GFR 198 Result Comment: Non- GFR Calc LAB L501.1115 >60 mL/min Normal EST GFR - AA 240 Result Comment: GFR Calc LAB L501.1300 10-20 RATIO High BUN/CRE 39.0 LAB L501.1500 6.4-8.2 g/dL Low T PROT 5.7 LAB L501.1800 3.2-5.0 g/dL Low ALB 2.1 LAB L501.1950 2.2-4.2 g/dL Normal GLOB 3.6 LAB L501.2000 0.9-2.4 RATIO Low A/G 0.6 LAB L501.2200 8.5-10.1 mg/dL Low CA 7.4 LAB L501.4100 15-37 U/L High AST 47 LAB L501.4305 45-117 U/L High ALK P 385 LAB L501.4405 16-61 U/L High ALT 71 LAB L501.4600 0.20-1.00 mg/dL T Normal BILI 0.50 LAB L501.5300 136-145 mmol/L NA Normal 141 LAB L501.5600 3.5-5.1 mmol/L K Normal 3.8 LAB L501.5900 98-107 mmol/L CL Normal 107 LAB L501.6100 21.0-32.0 mmol/L Normal CO2 26.0 LAB L501.6200 5-15 Normal GAP 8 Performed By: #### L500.4050, L501.2300, L501.5200, L506.0500 #### [facility] [address] [facility] [place], [place], [address] PHOSPHORUS Collected: 05/07/2018 Status: F Source: [place] 1:[address] [facility]POS[facility] Order Comment: SEND A FAX TO DR BARRON LOZADA ALSO TYPE CODE TESTS RESULT OUT OF RANGE REFERENCE UNITS LAB L501.2300 2.5-4.9 mg/dL Normal PHOS 2.7 Performed By: #### L500.4050, L501.2300, L501.5200, L506.0500 #### [facility] [address] [facility] [place], [address] MAGNESIUM Collected: 05/07/2018 Status: F Source: ARANZA 1:[address] [facility] Order Comment: SEND A FAX TO DR BARRON LOZADA ALSO TYPE CODE TESTS RESULT OUT OF RANGE REFERENCE UNITS LAB L501.5200 1.6-2.6 mg/dL Normal MG 1.7 Performed By: #### L500.4050, L501.2300, L501.5200, L506.0500 #### [facility] [address] [place], [address] PREALBUMIN Collected: 05/07/2018 Status: F Source: ARANZA 1:[address] [facility] Order Comment: SEND A FAX TO DR BARRON LOZADA ALSO TYPE CODE TESTS RESULT OUT OF REFERENCE UNITS RANGE LAB L506.0500 20.0-40.0 mg/dL Low PREALBUMIN 19.2 Performed By: #### L500.4050, L501.2300, L501.5200, L506.0500 #### [facility] [address] [facility] [place], [address] CBC-COMPLETE BLOOD CNT Collected: 04/23/2018 Status: F Source: [place] NO DIFF 3:[address] [facility]POS[facility] TYPE CODE TESTS RESULT OUT OF RANGE REFERENCE UNITS LAB L100.1000 4.4-11.0 K/mm3 High WBC 22.8 LAB L100.1200 4.6-6.2 M/mm3 Low RBC 2.80 LAB L100.1300 13.0-16.5 g/dl Low HGB 8.9 LAB L100.1400 40-54 % Low HCT 27.7 LAB L100.1500 80-94 fL High MCV 98.9 LAB L100.1600 27.0-32.0 pg Normal MCH 31.8 LAB L100.1700 32-36 g/gl Normal MCHC 32.1 LAB L100.1810 11.6-14.6 % High RDW CV 17.1 LAB L100.1820 35.1-43.9 fl High RDW SD 59.3 LAB L100.1900 150-450 K/mm3 Low PLT 133 LAB L100.2000 6.2-12.0 fl Normal MPV 11.9 Performed By: #### L100.0500 #### [facility] [address] [place], [place], [address] COMPREHENSIVE METABOLIC Collected: 04/23/2018 Status: F Source: [facility] 3:[address] [facility] Order Comment: [id number] AND TYPE CODE TESTS RESULT OUT OF RANGE REFERENCE UNITS LAB L501.0100 74-106 mg/dL Normal GLU 77 Result Comment: Please note revised GLUCOSE reference range effective 2017. LAB L501.1000 7-18 mg/dL High BUN 19 LAB L501.1100 0.70-1.30 mg/dL Low CREAT,SERUM 0.46 Result Comment: The validity of the calculated GFR AND GFRAA in patients over 70 years has not been determined. Clinical correlation is essential. LAB L501.1110 >60 mL/min Normal EST GFR 200 Result Comment: Non- GFR Calc LAB L501.1115 >60 mL/min Normal EST GFR - AA 241 Result Comment: GFR Calc LAB L501.1300 10-20 RATIO High BUN/CRE 41.4 LAB L501.1500 6.4-8.2 g/dL Low T PROT 5.4 LAB L501.1800 3.2-5.0 g/dL Low ALB 1.9 LAB L501.1950 2.2-4.2 g/dL Normal GLOB 3.5 LAB L501.2000 0.9-2.4 RATIO Low A/G 0.5 LAB L501.2200 8.5-10.1 mg/dL Low CA 7.6 LAB L501.4100 15-37 U/L High AST 38 LAB L501.4305 45-117 U/L High ALK P 275 LAB L501.4405 16-61 U/L Normal ALT 51 LAB L501.4600 0.20-1.00 mg/dL T Normal BILI 0.40 LAB L501.5300 136-145 mmol/L NA Normal 141 LAB L501.5600 3.5-5.1 mmol/L K Normal 3.8 LAB L501.5900 98-107 mmol/L High CL 108 LAB L501.6100 21.0-32.0 mmol/L Normal CO2 26.0 LAB L501.6200 5-15 Normal GAP 7 Performed By: #### L500.4050, L501.2300, L501.5200, L506.0500 #### [facility] [address] [place], [address] PHOSPHORUS Collected: 04/23/2018 Status: F Source: [place]ANZA 3:[address] [facility] Order Comment: [id number] AND TYPE CODE TESTS RESULT OUT OF RANGE REFERENCE UNITS LAB L501.2300 2.5-4.9 mg/dL Normal PHOS 3.5 Performed By: #### L500.4050, L501.2300, L501.5200, L506.0500 #### [facility] [address] [place], [place], [address] MAGNESIUM Collected: 04/23/2018 Status: F Source: [place] 3:[address] [facility] Order Comment: [id number] AND TYPE CODE TESTS RESULT OUT OF RANGE REFERENCE UNITS LAB L501.5200 1.6-2.6 mg/dL Low MG 1.4 Performed By: #### L500.4050, L501.2300, L501.5200, L506.0500 #### [facility] [address] [place], [address] PREALBUMIN Collected: 04/23/2018 Status: F Source: [place] 3:[address] [facility] Order Comment: [id number] AND TYPE CODE TESTS RESULT OUT OF REFERENCE UNITS RANGE LAB L506.0500 20.0-40.0 mg/dL Low PREALBUMIN 19.4 Performed By: #### L500.4050, L501.2300, L501.5200, L506.0500 #### [facility] [address] [place], [place], [address] 12 LEAD ELECTROCARDIOGRAM Observed: 04/13/2018 Status: F Source: ARANZA 9:[address] [facility] REPOSITORY [facility] [address] [place] [address] 12 Lead EKG 04/06/18 1323 MR#: [id number] Acct: [id number] Name: EVANS NEWELL Rep #: [id number] : 1960 58 From: Asad Latif MD Attending Dr: Status: DEP ER Ordering Dr: Danny De La Rosa DO Date: 04/06/18 Location: ED Sex: M C Admitted: Test Reason : CP, GI BLEED Blood Pressure : / mmHG Vent. Rate : 104 BPM Atrial Rate : 104 BPM P-R Int : 150 ms QRS Dur : 094 ms QT Int : 368 ms P-R-T Axes : 051 -27 -02 degrees QTc Int : 483 ms Sinus tachycardia Incomplete right bundle branch block Nonspecific ST and T wave abnormality Abnormal ECG Confirmed by AKASH SIMMONS, ASAD ([id number]), news video editor MAGALIE MAN ([id number]) on 04/09/2018 10:26:04 AM Referred By: Haley Avina Confirmed By:ASAD LATIF MD 04/09/18 1026 Date Asad Latif MD CC: Danny De La Rosa DO; Barron Lozada DO Signed *POC GLUCOSE BATTERY Collected: 04/11/2018 Status: F Source: [facility] 6:23 PM [facility] REPOSITORY TYPE CODE TESTS RESULT OUT OF REFERENCE UNITS RANGE LAB GLUP 70-99 mg/dL Glucose (poc 73 device) Result Comment: No BRAVE per RN: PATIENT TYPE LAB PCSTYP *POC Capillary SAMPLE TYPE Blood CT ANGIO ABDOMEN Observed: 04/11/2018 Status: F Source: [facility] PELVIS 4:02 PM [facility] REPOSITORY EXAM: CT ANGIO ABDOMEN PELVIS, 04/10/2018 16:55 PM CLINICAL INDICATIONS: Hematemesis CONTRAST: iohexol (OMNIPAQUE) 350 MG/ML injection 1-171 mL; Route of Administration: Intravenous; Dose: 100 mL. --------- COMPARISON: No prior studies available for comparison. TECHNIQUE: Submillimeter contiguous axial sections were taken from the intertrochanteric level to the upper pole of the kidneys during the arterial phase of intravenous injection of contrast. Oral contrast was not used so as to optimize the visualization of the vasculature. Additional multiplanar and 3D reconstructions were provided. FINDINGS: VASCULATURE: Thoracic/abdominal aorta: The visualized lower descending aorta is normal in course and caliber. Calcified and noncalcified atheromatous plaque results in mild luminal irregularity in the infrarenal abdominal aorta without significant stenosis. No evidence of aneurysm or dissection. Visceral arteries: The celiac trunk and its major branches are widely patent and normal in course and caliber. The SMA is widely patent. The KUSH is widely patent. There is a small focus of contrast not seen on the noncontrast sequence along the gastric fundus near the left gastric artery seen on arterial phase which does not increase on venous phase sequences (series 7, image 45). Renal arteries: Single renal arteries are identified bilaterally. The renal arteries are widely patent. Iliac vessels: The common, internal, and external iliac arteries are widely patent and normal in course and caliber. Calcific atherosclerosis is noted at the left common iliac artery bifurcation without luminal stenosis. Femoral vessels: The common, superficial, and profunda femoral arteries are widely patent and normal in course and caliber. Calcific atherosclerosis is noted in the bilateral common femoral arteries without luminal stenosis. LUNG BASES/MEDIASTINUM: Multiple small nodular opacities are noted in the bilateral posterior lower lobes. Some of these are in a tree-in-bud configuration and may be sequelae of aspiration or infection. The included inferior mediastinal contents are unremarkable. The included portions of the heart are unremarkable. ABDOMEN/PELVIS: Liver/gallbladder fossa: The liver is diffusely decreased in CT density relative to the spleen. No focal hepatic lesions are identified. No evidence of intrahepatic biliary ductal dilatation. The portal system is patent. The gallbladder is surgically absent. No evidence of extrahepatic biliary ductal dilatation. Spleen: The spleen is mildly enlarged measuring 13.8 cm in craniocaudal dimension. No focal lesions in the spleen. The splenic vascular pedicle is patent. Pancreas: There is an ill-defined hypodense mass within the tail of the pancreas measuring 2.8 x 2.3 x 3.6 cm (series 7, image 52 and series 8, image 80). The mass abuts the gastric fundus with no intervening fat plane between the two structures. The mass also abuts portions of the splenic artery. No involvement of the celiac trunk, superior mesenteric artery, or portal vein. There is focal narrowing of the splenic vein just proximal to the portosplenic confluence (series 11, image 66) without luminal filling defect. Kidneys/adrenals: The kidneys enhance symmetrically. Severe hydronephrosis of the left kidney with double-J nephroureteral stent in place. Multiple low density lesions are noted in the bilateral kidneys. The largest in the lateral interpolar cortex of the right kidney measures 3.1 x 2.9 cm (series 10, image 84). The adrenal glands are unremarkable without evidence of focal lesion. GI: The distal esophagus is patulous and fluid-filled on arterial phase sequences. A percutaneous gastrostomy tube is in place. High density material is noted within the gastric fundus on noncontrast phase which does not increase on arterial or venous phase sequences. Bowel loops are nondilated. Liquid stool is noted diffusely throughout the colon. Mesentery/retroperitoneum: Multiple prominent retroperitoneal lymph nodes are noted, including a 9 mm perigastric lymph node (series 10, image 47). There is a hipolito appearance within the small bowel mesentery with an apparent pseudocapsule and fat halos involving the associated vessels and internal non-pathologically enlarged lymph nodes. There is no displacement of vascular structures. No focal, drainable fluid collections identified within the abdomen. Urogenital: The urinary bladder is underdistended with double- J stent in place. The prostate and seminal vesicles are unremarkable. No focal fluid collections within the pelvis. Osseous structures: Partially visualized left total hip arthroplasty. Multilevel degenerative changes of the lumbar and visualized thoracic spine as well as the right hip. Pelvic enthesopathy. No suspicious focal osseous lesions. IMPRESSION: 1. No active contrast extravasation to suggest vessel leak or rupture. 2. Focus of contrast along the gastric fundus at the interface of the stomach with the pancreatic tail mass on the arterial phase may represent a vascular shunt or small aneurysm. This appears to arise from the left gastric artery. Definitive diagnosis with angiogram could be considered as clinically warranted. 3. Ill-defined, hypodense mass within the tail of the pancreas with likely invasion into the adjacent gastric fundus, compatible with known history of malignancy. This may represent the source of the patient's hematemesis. 4. 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 Metastatic disease from known pancreatic malignancy is also a consideration. 5. Status post double-J ureteral stent placement in the left kidney with severe hydronephrosis. 6. Low-density liquid stool throughout the colon is suggestive of a nonspecific diarrheal illness. 7. Hepatic steatosis. No focal liver lesions. 8. Multiple small nodular opacities in the bilateral lung bases. Some of these have a tree-in-bud appearance and may be secondary to infection or aspiration. CT of the chest could be considered for further evaluation as clinically warranted. I personally viewed and interpreted these images and I have reviewed and approved this report. *POC GLUCOSE BATTERY Collected: 04/11/2018 Status: F Source: [facility] 1:03 PM [facility] REPOSITORY TYPE CODE TESTS RESULT OUT OF REFERENCE UNITS RANGE LAB GLUP 70-99 mg/dL High Glucose (poc 114 device) Result Comment: No BRAVE per RN: PATIENT TYPE LAB PCSTYP *POC Capillary SAMPLE TYPE Blood *POC GLUCOSE BATTERY Collected: 04/11/2018 Status: F Source: [facility] 6:17 AM [facility] REPOSITORY TYPE CODE TESTS RESULT OUT OF REFERENCE UNITS RANGE LAB GLUP 70-99 mg/dL High Glucose (poc 160 device) Result Comment: Notified RNread back No BRAVE per RN: PATIENT TYPE LAB PCSTYP *POC Capillary SAMPLE TYPE Blood HEMOGRAM (CBC AND Collected: 04/11/2018 Status: F Source: [facility]) 3:20 AM [facility] REPOSITORY TYPE CODE TESTS RESULT OUT OF REFERENCE UNITS RANGE LAB WBC 3.73-10.10 K/uL WBC Count 8.24 LAB RBC 4.38-5.83 M/uL Low RBC Count 2.37 LAB HGB 13.4-16.8 g/dL Low Hemoglobin 7.4 LAB HCT 39.6-48.8 % Low Hematocrit 23.1 LAB MCV 79.0-94.5 fL Mean Cell High Volume 97.5 LAB MCH 26.1-33.3 pg Mean Cell Hgb 31.2 LAB MCHC 31.9-36.5 g/dL Mean Cell Hgb Conc 32.0 LAB RDW 10.9-14.3 % RBC High Distribution 20.4 LAB PLT 146-337 K/uL Low Platelet Count 143 LAB MPV 8.7-12.3 fL Mean Platelet Volume 11.0 LAB NRBC 0.0-0.2 /100 WBC NUCLEATED RBC High 0.4 Performed By: #### HEMOGC, CA, CHM7, IPB, MGO #### [facility] [address] [place] [address] [address] [place] [address] CALCIUM Collected: 04/11/2018 Status: F Source: [facility] 3:20 AM [facility] REPOSITORY TYPE CODE TESTS RESULT OUT OF REFERENCE UNITS RANGE LAB CA 8.6-10.5 mg/dL Low Calcium 7.2 Performed By: #### HEMOGC, CA, CHM7, IPB, MGO #### [facility] [address] [place] [id number] [place] [address] [place] [address] CHEM 7 Collected: 04/11/2018 Status: F Source: [facility] 3:20 AM [facility] REPOSITORY TYPE CODE TESTS RESULT OUT OF REFERENCE UNITS RANGE LAB BUN 7-22 mg/dL BUN 19 LAB NA 133-143 mmol/L Sodium 141 LAB K 3.5-5.0 mmol/L Low Potassium 3.4 LAB CL 98-108 mmol/L Chloride High 110 LAB CO2 22-30 mmol/L Carbon Dioxide 25 LAB GLUC 70-99 mg/dL Glucose High 150 LAB CREA 0.70-1.30 mg/dL Low Creatinine 0.45 LAB GAP 7-17 mmol/L Anion Gap 9 LAB BC BUN/CREA Ratio 42 LAB OSMC 278-305 mOsm/kg Osmolality 299 (Calc) LAB GFR >60 mL/min/1.73 sqM Est GFR,non >60 Lao LAB GFRA >60 mL/min/1.73 sqM Est GFR, >60 Performed By: #### HEMOGC, CA, CHM7, IPB, MGO #### [facility] [address] [place] [id number] [place] [address] [place] [address] INORGANIC PHOSPHATE Collected: 04/11/2018 Status: F Source: [facility] 3:20 AM [facility] REPOSITORY TYPE CODE TESTS RESULT OUT OF REFERENCE UNITS RANGE LAB IP 2.2-4.6 mg/dL Inorg Phosphate 2.6 Performed By: #### HEMOGC, CA, CHM7, IPB, MGO #### [facility] [address] [place] [address] [address] [place] [address] MAGNESIUM Collected: 04/11/2018 Status: F Source: [facility] 3:20 AM [facility] REPOSITORY TYPE CODE TESTS RESULT OUT OF REFERENCE UNITS RANGE LAB MG 1.6-2.6 mg/dL Magnesium 1.8 Performed By: #### HEMOGC, CA, CHM7, IPB, MGO #### [facility] [address] [place] [address] [address] [place] [address] *POC GLUCOSE BATTERY Collected: 04/11/2018 Status: F Source: [facility] 12:09 AM [facility] REPOSITORY TYPE CODE TESTS RESULT OUT OF REFERENCE UNITS RANGE LAB GLUP 70-99 mg/dL High Glucose (poc 175 device) Result Comment: Notified RNread back No BRAVE per RN: PATIENT TYPE LAB PCSTYP *POC Capillary SAMPLE TYPE Blood *POC GLUCOSE BATTERY Collected: 04/10/2018 Status: F Source: [facility] 6:47 PM [facility] REPOSITORY TYPE CODE TESTS RESULT OUT OF REFERENCE UNITS RANGE LAB GLUP 70-99 mg/dL Glucose (poc 72 device) Result Comment: No BRAVE per RN: PATIENT TYPE LAB PCSTYP *POC Capillary SAMPLE TYPE Blood *POC GLUCOSE BATTERY Collected: 04/10/2018 Status: F Source: [facility] 11:15 AM [facility] REPOSITORY TYPE CODE TESTS RESULT OUT OF REFERENCE UNITS RANGE LAB GLUP 70-99 mg/dL High Glucose (poc 121 device) Result Comment: No BRAVE per RN: PATIENT TYPE LAB PCSTYP *POC Capillary SAMPLE TYPE Blood IONIZED CALCIUM Collected: 04/10/2018 Status: F Source: [facility] 10:43 AM [facility] REPOSITORY TYPE CODE TESTS RESULT OUT OF REFERENCE UNITS RANGE LAB ICA 4.60-5.30 mg/dL Low Ionized 4.42 Calcium Performed By: #### ICA, ALB, CA, CHM7, IPB, MGO #### [place] [address] [place] [address] [address] [place] [address] ALBUMIN Collected: 04/10/2018 Status: F Source: [facility] 10:[address] [facility] REPOSITORY TYPE CODE TESTS RESULT OUT OF REFERENCE UNITS RANGE LAB ALB 3.5-5.0 g/dL Low Albumin 2.6 Performed By: #### ICA, ALB, CA, CHM7, IPB, MGO #### [place] [address] [place] [address] [address] [address] CALCIUM Collected: 04/10/2018 Status: F Source: [facility] 10:[address] [facility] REPOSITORY TYPE CODE TESTS RESULT OUT OF REFERENCE UNITS RANGE LAB CA 8.6-10.5 mg/dL Low Calcium 7.6 Performed By: #### ICA, ALB, CA, CHM7, IPB, MGO #### [place] [address] [place] [address] CHEM 7 Collected: 04/10/2018 Status: F Source: [facility] 10:[address] [facility] REPOSITORY TYPE CODE TESTS RESULT OUT OF REFERENCE UNITS RANGE LAB BUN 7-22 mg/dL BUN High 23 LAB NA 133-143 mmol/L Sodium 140 LAB K 3.5-5.0 mmol/L Potassium 3.8 LAB CL 98-108 mmol/L Chloride High 109 LAB CO2 22-30 mmol/L Carbon Dioxide 24 LAB GLUC 70-99 mg/dL Glucose High 121 LAB CREA 0.70-1.30 mg/dL Low Creatinine 0.42 LAB GAP 7-17 mmol/L Anion Gap 11 LAB BC BUN/CREA Ratio 55 LAB [facility] 278-305 mOsm/kg Osmolality 297 (Calc) LAB GFR >60 mL/min/1.73 sqM Est GFR,non >60 Lao LAB GFRA >60 mL/min/1.73 sqM Est GFR, >60 Performed By: #### ICA, ALB, CA, CHM7, IPB, MGO #### [place] [address] [place] [address] [place] [address] INORGANIC PHOSPHATE Collected: 04/10/2018 Status: F Source: [facility] 10:43 AM [facility] REPOSITORY TYPE CODE TESTS RESULT OUT OF REFERENCE UNITS RANGE LAB IP 2.2-4.6 mg/dL Inorg Phosphate 3.0 Performed By: #### ICA, ALB, CA, CHM7, IPB, MGO #### [place] [address] [place] [address] [address] [place] [address] MAGNESIUM Collected: 04/10/2018 Status: F Source: [facility] 10:43 AM [facility] REPOSITORY TYPE CODE TESTS RESULT OUT OF REFERENCE UNITS RANGE LAB MG 1.6-2.6 mg/dL Magnesium 1.8 Performed By: #### ICA, ALB, CA, CHM7, IPB, MGO #### [place] [address] [place] [address] [address] [place] [address] *POC GLUCOSE BATTERY Collected: 04/10/2018 Status: F Source: [facility] 6:30 AM [facility] REPOSITORY TYPE CODE TESTS RESULT OUT OF REFERENCE UNITS RANGE LAB GLUP 70-99 mg/dL High Glucose (poc 171 device) Result Comment: No BRAVE per RN: PATIENT TYPE LAB PCSTYP *POC Capillary SAMPLE TYPE Blood HEMOGRAM (CBC AND Collected: 04/10/2018 Status: F Source: [facility]) 5:02 AM [facility] REPOSITORY TYPE CODE TESTS RESULT OUT OF REFERENCE UNITS RANGE LAB WBC 3.73-10.10 K/uL WBC Count 8.46 LAB RBC 4.38-5.83 M/uL Low RBC Count 2.43 LAB HGB 13.4-16.8 g/dL Low Hemoglobin 7.7 LAB HCT 39.6-48.8 % Low Hematocrit 23.7 LAB MCV 79.0-94.5 fL Mean High Cell Volume 97.5 Result Comment: Results inconsistent with previous results LAB MCH 26.1-33.3 pg Mean Cell Hgb 31.7 LAB MCHC 31.9-36.5 g/dL Mean Cell Hgb Conc 32.5 LAB RDW 10.9-14.3 % RBC Distribution High 20.3 LAB PLT 146-337 K/uL Platelet Count Low 136 LAB MPV 8.7-12.3 fL Mean Platelet Volume 10.9 LAB NRBC 0.0-0.2 /100 WBC NUCLEATED RBC High 0.4 Performed By: #### HEMOGC #### [facility] [address] [place] [id number] [place] [address] [place] [address] ALBUMIN Collected: 04/10/2018 Status: F Source: [facility] 5:02 AM [facility] REPOSITORY TYPE CODE TESTS RESULT OUT OF REFERENCE UNITS RANGE LAB ALB 3.5-5.0 g/dL Low Albumin 2.3 Performed By: #### ALB #### [place] [address] [place] [id number] [place] [address] [place] [address] HEMOGRAM (CBC AND Collected: 04/10/2018 Status: F Source: [facility]) 3:36 AM [facility] REPOSITORY TYPE CODE TESTS RESULT OUT OF REFERENCE UNITS RANGE LAB WBC 3.73-10.10 K/uL WBC Count 6.52 LAB RBC 4.38-5.83 M/uL Low RBC Count 1.93 LAB HGB 13.4-16.8 g/dL Low alert Hemoglobin 6.4 Result Comment: This result has been called to NICKI REDD by Ronit Blake on 04 10 2018 at 0455, and has been read back. LAB HCT 39.6-48.8 % Low Hematocrit 23.2 LAB MCV 79.0-94.5 fL Mean Cell High Volume 120.2 Result Comment: Results inconsistent with previous results LAB MCH 26.1-33.3 pg Mean Cell Hgb 33.2 LAB MCHC 31.9-36.5 g/dL Low Mean Cell Hgb alert Conc 27.6 LAB RDW 10.9-14.3 % RBC Distribution High 21.3 LAB PLT 146-337 K/uL Low Platelet Count 115 LAB MPV 8.7-12.3 fL Mean Platelet Volume 11.5 LAB NRBC 0.0-0.2 /100 WBC NUCLEATED RBC High 0.6 Performed By: #### HEMOGC #### [facility] [address] [place] [address] [address] [place] [address] *POC GLUCOSE BATTERY Collected: 04/10/2018 Status: F Source: [facility] 1:57 AM [facility] REPOSITORY TYPE CODE TESTS RESULT OUT OF REFERENCE UNITS RANGE LAB GLUP 70-99 mg/dL High Glucose (poc 170 device) Result Comment: No BRAVE per RN: PATIENT TYPE LAB PCSTYP *POC Capillary SAMPLE TYPE Blood *POC GLUCOSE BATTERY Collected: 04/09/2018 Status: F Source: [facility] 8:45 PM [facility] REPOSITORY TYPE CODE TESTS RESULT OUT OF REFERENCE UNITS RANGE LAB GLUP 70-99 mg/dL Glucose (poc 78 device) Result Comment: No BRAVE per RN: PATIENT TYPE LAB PCSTYP *POC Capillary SAMPLE TYPE Blood *POC GLUCOSE BATTERY Collected: 04/09/2018 Status: F Source: [facility] 4:22 PM [facility] REPOSITORY TYPE CODE TESTS RESULT OUT OF REFERENCE UNITS RANGE LAB GLUP 70-99 mg/dL Glucose (poc 97 device) Result Comment: Notified RNread back No BRAVE per RN: PATIENT TYPE LAB PCSTYP *POC Capillary SAMPLE TYPE Blood HGB & HCT Collected: 04/09/2018 Status: F Source: [facility] 3:01 PM [facility] REPOSITORY TYPE CODE TESTS RESULT OUT OF REFERENCE UNITS RANGE LAB HGB 13.4-16.8 g/dL Low Hemoglobin 8.3 LAB HCT 39.6-48.8 % Low Hematocrit 25.8 Performed By: #### HH #### [facility] [address] [place] [address] [address] [place] [address] *POC GLUCOSE BATTERY Collected: 04/09/2018 Status: F Source: [facility] 11:51 AM [facility] REPOSITORY TYPE CODE TESTS RESULT OUT OF REFERENCE UNITS RANGE LAB GLUP 70-99 mg/dL High Glucose (poc 134 device) Result Comment: No BRAVE per RN: PATIENT TYPE LAB PCSTYP *POC Capillary SAMPLE TYPE Blood *POC GLUCOSE BATTERY Collected: 04/09/2018 Status: F Source: [facility] 6:02 AM [facility] REPOSITORY TYPE CODE TESTS RESULT OUT OF REFERENCE UNITS RANGE LAB GLUP 70-99 mg/dL High Glucose (poc 164 device) Result Comment: No BRAVE per RN: PATIENT TYPE LAB PCSTYP *POC Capillary SAMPLE TYPE Blood IONIZED CALCIUM Collected: 04/09/2018 Status: F Source: [facility] 4:32 AM [facility] REPOSITORY TYPE CODE TESTS RESULT OUT OF REFERENCE UNITS RANGE LAB ICA 4.60-5.30 mg/dL Ionized 4.71 Calcium Performed By: #### ICA, PALB, HEMOGC, CA, CHM7, CRP, IPB, MGO, TRIG #### [place] [address] [place] [address] [address] [place] [address] PREALBUMIN Collected: 04/09/2018 Status: F Source: [facility] 4:32 AM [facility] REPOSITORY TYPE CODE TESTS RESULT OUT OF REFERENCE UNITS RANGE LAB PALB 17-34 mg/dL Low Prealbumin 15 Performed By: #### ICA, PALB, HEMOGC, CA, CHM7, CRP, IPB, MGO, TRIG #### [place] [address] [place] [address] [address] [place] [address] HEMOGRAM (CBC AND Collected: 04/09/2018 Status: F Source: [facility]) 4:32 AM [facility] REPOSITORY TYPE CODE TESTS RESULT OUT OF REFERENCE UNITS RANGE LAB WBC 3.73-10.10 K/uL WBC Count 9.71 LAB RBC 4.38-5.83 M/uL Low RBC Count 2.20 LAB HGB 13.4-16.8 g/dL Low alert Hemoglobin 6.9 Result Comment: This result has been called to NICKI ENAMORADO by Shahana Mckeon on 04 09 2018 at 0553, and has been read back. LAB HCT 39.6-48.8 % Hematocrit Low 21.7 LAB MCV 79.0-94.5 fL Mean Cell Volume High 98.6 LAB MCH 26.1-33.3 pg Mean Cell Hgb 31.4 LAB MCHC 31.9-36.5 g/dL Mean Cell Hgb Low Conc 31.8 LAB RDW 10.9-14.3 % RBC Distribution High 21.0 LAB PLT 146-337 K/uL Platelet Count Low 140 LAB MPV 8.7-12.3 fL Mean Platelet Volume 11.0 LAB NRBC 0.0-0.2 /100 WBC NUCLEATED RBC High 0.4 Performed By: #### ICA, PALB, HEMOGC, CA, CHM7, CRP, IPB, MGO, TRIG #### [facility] [address] [place] [address] [address] [place] [address] CALCIUM Collected: 04/09/2018 Status: F Source: [facility] 4:32 AM [facility] REPOSITORY TYPE CODE TESTS RESULT OUT OF REFERENCE UNITS RANGE LAB CA 8.6-10.5 mg/dL Low Calcium 7.6 Performed By: #### ICA, PALB, HEMOGC, CA, CHM7, CRP, IPB, MGO, TRIG #### [facility] [address] [place] [address] [address] [place] [address] CHEM 7 Collected: 04/09/2018 Status: F Source: [facility] 4:32 AM [facility] REPOSITORY TYPE CODE TESTS RESULT OUT OF REFERENCE UNITS RANGE LAB BUN 7-22 mg/dL BUN High 23 LAB NA 133-143 mmol/L Sodium 143 LAB K 3.5-5.0 mmol/L Potassium 3.8 LAB CL 98-108 mmol/L Chloride High 111 LAB CO2 22-30 mmol/L Carbon Dioxide 26 LAB GLUC 70-99 mg/dL Glucose High 149 LAB CREA 0.70-1.30 mg/dL Low Creatinine 0.55 LAB GAP 7-17 mmol/L Anion Gap 10 LAB BC BUN/CREA Ratio 42 LAB [facility] 278-305 mOsm/kg Osmolality 305 (Calc) LAB GFR >60 mL/min/1.73 sqM Est GFR,non >60 Lao LAB GFRA >60 mL/min/1.73 sqM Est GFR, >60 Performed By: #### ICA, PALB, HEMOGC, CA, CHM7, CRP, IPB, MGO, TRIG #### [place] [address] [place] [id number] [place] [address] [place] [address] C REACTIVE PROTEIN Collected: 04/09/2018 Status: F Source: [facility] 4:[address] [facility] REPOSITORY TYPE CODE TESTS RESULT OUT OF REFERENCE UNITS RANGE LAB CRP <10.00 mg/L C Reactive 6.00 Protein Performed By: #### ICA, PALB, HEMOGC, CA, CHM7, CRP, IPB, MGO, TRIG #### [place] [address] [place] [address] [address] [place] [address] INORGANIC PHOSPHATE Collected: 04/09/2018 Status: F Source: [facility] 4:[address] [facility] REPOSITORY TYPE CODE TESTS RESULT OUT OF REFERENCE UNITS RANGE LAB IP 2.2-4.6 mg/dL Inorg Phosphate 2.8 Performed By: #### ICA, PALB, HEMOGC, CA, CHM7, CRP, IPB, MGO, TRIG #### [place] [address] [place] [address] [address] [place] [address] MAGNESIUM Collected: 04/09/2018 Status: F Source: [facility] 4:[address] [facility] REPOSITORY TYPE CODE TESTS RESULT OUT OF REFERENCE UNITS RANGE LAB MG 1.6-2.6 mg/dL Magnesium 1.8 Performed By: #### ICA, PALB, HEMOGC, CA, CHM7, CRP, IPB, MGO, TRIG #### [place] [address] [place] [address] [address] [place] [address] TRIGLYCERIDES Collected: 04/09/2018 Status: F Source: [facility] 4:[address] [facility] REPOSITORY TYPE CODE TESTS RESULT OUT OF REFERENCE UNITS RANGE LAB TRIG <150 mg/dL TRIGLYCERIDES 137 Performed By: #### ICA, PALB, HEMOGC, CA, CHM7, CRP, IPB, MGO, TRIG #### [facility] [address] [place] [address] [facility] [address] [place], [place] [address] *POC GLUCOSE BATTERY Collected: 04/09/2018 Status: F Source: [facility] 12:15 AM [facility] REPOSITORY TYPE CODE TESTS RESULT OUT OF REFERENCE UNITS RANGE LAB GLUP 70-99 mg/dL High Glucose (poc 189 device) Result Comment: No BRAVE per RN: PATIENT TYPE LAB PCSTYP *POC Capillary SAMPLE TYPE Blood HGB & HCT Collected: 04/08/2018 Status: F Source: [facility] 11:57 PM [facility] REPOSITORY TYPE CODE TESTS RESULT OUT OF REFERENCE UNITS RANGE LAB HGB 13.4-16.8 g/dL Low Hemoglobin 7.2 LAB HCT 39.6-48.8 % Low Hematocrit 22.5 Performed By: #### HH #### [facility] [address] [place] [address] [facility] [address] [place] [address] HEMOGRAM (CBC AND Collected: 04/08/2018 Status: F Source: [facility]) 10:52 PM [facility] REPOSITORY TYPE CODE TESTS RESULT OUT OF REFERENCE UNITS RANGE LAB WBC 3.73-10.10 K/uL WBC Count 8.24 LAB RBC 4.38-5.83 M/uL Low RBC Count 1.97 LAB HGB 13.4-16.8 g/dL Low alert Hemoglobin 6.2 Result Comment: This result has been called to RN TOO GUTHRIE by Shahana Mckeon on 04 08 2018 at 2338, and has been read back. LAB HCT 39.6-48.8 % Low Hematocrit 24.5 LAB MCV 79.0-94.5 fL Mean Cell High Volume 124.4 Result Comment: Results inconsistent with previous results LAB MCH 26.1-33.3 pg Mean Cell Hgb 31.5 LAB MCHC 31.9-36.5 g/dL Low Mean Cell Hgb alert Conc 25.3 LAB RDW 10.9-14.3 % RBC Distribution High 22.0 LAB PLT 146-337 K/uL Low Platelet Count 139 LAB MPV 8.7-12.3 fL Mean Platelet Volume 11.3 LAB NRBC 0.0-0.2 /100 WBC NUCLEATED RBC High 0.4 Performed By: #### HEMOGC #### [facility] [address] [place] [address] [facility] [address] [place] [address] *POC GLUCOSE BATTERY Collected: 04/08/2018 Status: F Source: [facility] 5:41 PM [facility] REPOSITORY TYPE CODE TESTS RESULT OUT OF REFERENCE UNITS RANGE LAB GLUP 70-99 mg/dL High Glucose (poc 117 device) Result Comment: No BRAVE per RN: PATIENT TYPE LAB PCSTYP *POC Capillary SAMPLE TYPE Blood Observed: 04/08/2018 Status: F Source: [facility] TYPE AND CROSS 4:20 PM [facility] REPOSITORY ABO/RH(D): A POSITIVE ANTIBODY SCREEN: NEGATIVE UNIT NUMBER: [id number] BLOOD COMPONENT TYPE: Red Cells, Leukoreduced_[id number] STATUS OF UNIT: Issued, Final TRANSFUSION STATUS: OK TO TRANSFUSE CROSSMATCH RESULT: Electronically Compatible UNIT NUMBER: [id number] BLOOD COMPONENT TYPE: Red Cells, Leukoreduced_[id number] STATUS OF UNIT: Issued, Final TRANSFUSION STATUS: OK TO TRANSFUSE CROSSMATCH RESULT: Electronically Compatible UNIT NUMBER: [id number] BLOOD COMPONENT TYPE: Red Cells, Leukoreduced_[id number] STATUS OF UNIT: Issued, Final TRANSFUSION STATUS: OK TO TRANSFUSE CROSSMATCH RESULT: Electronically Compatible Performed By: #### XM #### [place] [address] [place] [address] [address] [place] [address] HEMOGRAM (CBC AND Collected: 04/08/2018 Status: F Source: [facility]) 3:54 PM [facility] REPOSITORY TYPE CODE TESTS RESULT OUT OF REFERENCE UNITS RANGE LAB WBC 3.73-10.10 K/uL WBC Count 9.49 LAB RBC 4.38-5.83 M/uL Low RBC Count 2.47 LAB HGB 13.4-16.8 g/dL Low Hemoglobin 7.7 LAB HCT 39.6-48.8 % Low Hematocrit 23.7 LAB MCV 79.0-94.5 fL Mean Cell High Volume 96.0 LAB MCH 26.1-33.3 pg Mean Cell Hgb 31.2 LAB MCHC 31.9-36.5 g/dL Mean Cell Hgb Conc 32.5 LAB RDW 10.9-14.3 % RBC High Distribution 20.5 LAB PLT 146-337 K/uL Platelet Count 165 LAB MPV 8.7-12.3 fL Mean Platelet Volume 10.8 LAB NRBC 0.0-0.2 /100 WBC NUCLEATED RBC 0.2 Performed By: #### HEMOGC #### [place] [address] [place] [address] [address] [place] [address] *POC GLUCOSE BATTERY Collected: 04/08/2018 Status: F Source: [facility] 11:50 AM [facility] REPOSITORY TYPE CODE TESTS RESULT OUT OF REFERENCE UNITS RANGE LAB GLUP 70-99 mg/dL High Glucose (poc 126 device) Result Comment: No BRAVE per RN: PATIENT TYPE LAB PCSTYP *POC Capillary SAMPLE TYPE Blood HGB & HCT Collected: 04/08/2018 Status: F Source: [facility] 9:38 AM [facility] REPOSITORY TYPE CODE TESTS RESULT OUT OF REFERENCE UNITS RANGE LAB HGB 13.4-16.8 g/dL Low Hemoglobin 7.6 LAB HCT 39.6-48.8 % Low Hematocrit 22.4 Performed By: #### HH #### [place] [address] [place] [address] [address] [place] [address] *POC GLUCOSE BATTERY Collected: 04/08/2018 Status: F Source: [facility] 6:05 AM [facility] REPOSITORY TYPE CODE TESTS RESULT OUT OF REFERENCE UNITS RANGE LAB GLUP 70-99 mg/dL High Glucose (poc 171 device) Result Comment: No BRAVE per RN: PATIENT TYPE LAB PCSTYP *POC Capillary SAMPLE TYPE Blood HEMOGRAM (CBC AND Collected: 04/08/2018 Status: F Source: [facility]) 2:53 AM [facility] REPOSITORY TYPE CODE TESTS RESULT OUT OF REFERENCE UNITS RANGE LAB WBC 3.73-10.10 K/uL WBC Count High 12.94 LAB RBC 4.38-5.83 M/uL Low RBC Count 2.47 LAB HGB 13.4-16.8 g/dL Low Hemoglobin 7.7 LAB HCT 39.6-48.8 % Low Hematocrit 24.1 LAB MCV 79.0-94.5 fL Mean Cell High Volume 97.6 LAB MCH 26.1-33.3 pg Mean Cell Hgb 31.2 LAB MCHC 31.9-36.5 g/dL Mean Cell Hgb Conc 32.0 LAB RDW 10.9-14.3 % RBC High Distribution 20.7 LAB PLT 146-337 K/uL Platelet Count 210 LAB MPV 8.7-12.3 fL Mean Platelet Volume 11.0 LAB NRBC 0.0-0.2 /100 WBC NUCLEATED RBC High 0.3 Performed By: #### HEMOGC, CHM7, CRP, TRIG, PALB, IPB #### [facility] [address] [address] CHEM 7 Collected: 04/08/2018 Status: F Source: [facility] 2:[address] [facility] REPOSITORY TYPE CODE TESTS RESULT OUT OF REFERENCE UNITS RANGE LAB BUN 7-22 mg/dL BUN High 26 LAB NA 133-143 mmol/L Sodium High 144 LAB K 3.5-5.0 mmol/L Potassium 3.7 LAB CL 98-108 mmol/L Chloride High 112 LAB CO2 22-30 mmol/L Carbon Dioxide 26 LAB GLUC 70-99 mg/dL Glucose High 207 LAB CREA 0.70-1.30 mg/dL Low Creatinine 0.57 LAB GAP 7-17 mmol/L Anion Gap 10 LAB BC BUN/CREA Ratio 46 LAB [facility] 278-305 mOsm/kg High Osmolality 311 (Calc) LAB GFR >60 mL/min/1.73 sqM Est GFR,non >60 Lao LAB GFRA >60 mL/min/1.73 sqM Est GFR, >60 Performed By: #### HEMOGC, CHM7, CRP, TRIG, PALB, IPB #### [facility] [id number] [place] [address] [address] C REACTIVE PROTEIN Collected: 04/08/2018 Status: F Source: [facility] 2:[address] [facility] REPOSITORY TYPE CODE TESTS RESULT OUT OF REFERENCE UNITS RANGE LAB CRP <10.00 mg/L C Reactive 8.30 Protein Performed By: #### HEMOGC, CHM7, CRP, TRIG, PALB, IPB #### [place] [address] [place] [id number] [place] [address] [place] [address] TRIGLYCERIDES Collected: 04/08/2018 Status: F Source: [facility] 2:53 AM [facility] REPOSITORY TYPE CODE TESTS RESULT OUT OF REFERENCE UNITS RANGE LAB TRIG <150 mg/dL TRIGLYCERIDES High 151 Performed By: #### HEMOGC, CHM7, CRP, TRIG, PALB, IPB #### [place] [address] [place] [address] [address] [place] [address] PREALBUMIN Collected: 04/08/2018 Status: F Source: [facility] 2:53 AM [facility] REPOSITORY TYPE CODE TESTS RESULT OUT OF REFERENCE UNITS RANGE LAB PALB 17-34 mg/dL Low Prealbumin 15 Performed By: #### HEMOGC, CHM7, CRP, TRIG, PALB, IPB #### [place] [address] [place] [id number] [place] [address] [place] [address] INORGANIC PHOSPHATE Collected: 04/08/2018 Status: F Source: [facility] 2:53 AM [facility] REPOSITORY TYPE CODE TESTS RESULT OUT OF REFERENCE UNITS RANGE LAB MG 1.6-2.6 mg/dL Magnesium 1.8 Performed By: #### HEMOGC, CHM7, CRP, TRIG, PALB, IPB #### [facility] [address] [place] [id number] [place] [address] [place] [address] *POC GLUCOSE BATTERY Collected: 04/08/2018 Status: F Source: [facility] 12:04 AM [facility] REPOSITORY TYPE CODE TESTS RESULT OUT OF REFERENCE UNITS RANGE LAB GLUP 70-99 mg/dL High Glucose (poc 205 device) Result Comment: No BRAVE per RN: PATIENT TYPE LAB PCSTYP *POC Capillary SAMPLE TYPE Blood HGB & HCT Collected: 04/07/2018 Status: F Source: [facility] 9:50 PM [facility] REPOSITORY TYPE CODE TESTS RESULT OUT OF REFERENCE UNITS RANGE LAB HGB 13.4-16.8 g/dL Low Hemoglobin 8.3 LAB HCT 39.6-48.8 % Low Hematocrit 25.7 Performed By: #### HH #### [facility] [address] [place] [id number] [place] [address] [place] [address] HGB & HCT Collected: 04/07/2018 Status: F Source: [facility] 11:54 AM [facility] REPOSITORY TYPE CODE TESTS RESULT OUT OF REFERENCE UNITS RANGE LAB HGB 13.4-16.8 g/dL Low Hemoglobin 8.1 LAB HCT 39.6-48.8 % Low Hematocrit 25.2 Performed By: #### HH #### [place] [address] [place] [address] [address] IONIZED CALCIUM Collected: 04/07/2018 Status: F Source: [facility] 11:12 AM [facility] REPOSITORY TYPE CODE TESTS RESULT OUT OF REFERENCE UNITS RANGE LAB ICA 4.60-5.30 mg/dL Ionized 4.81 Calcium Performed By: #### ICA #### [facility] [address] [place] [phone] [place] [address] [place] [address] HGB & HCT Collected: 04/07/2018 Status: F Source: [facility] 9:22 AM [facility] REPOSITORY TYPE CODE TESTS RESULT OUT OF REFERENCE UNITS RANGE LAB HGB 13.4-16.8 g/dL Low Hemoglobin 8.3 LAB HCT 39.6-48.8 % Low Hematocrit 25.2 Performed By: #### HH #### [facility] [address] [place] [id number] [place] [address] [place] [address] HEMOGRAM (CBC AND Collected: 04/07/2018 Status: F Source: [facility]) 3:06 AM [facility] REPOSITORY TYPE CODE TESTS RESULT OUT OF REFERENCE UNITS RANGE LAB WBC 3.73-10.10 K/uL WBC Count High 17.64 LAB RBC 4.38-5.83 M/uL Low RBC Count 2.92 LAB HGB 13.4-16.8 g/dL Low Hemoglobin 9.2 LAB HCT 39.6-48.8 % Low Hematocrit 28.0 LAB MCV 79.0-94.5 fL Mean Cell High Volume 95.9 LAB MCH 26.1-33.3 pg Mean Cell Hgb 31.5 LAB MCHC 31.9-36.5 g/dL Mean Cell Hgb Conc 32.9 LAB RDW 10.9-14.3 % RBC High Distribution 20.7 LAB PLT 146-337 K/uL Platelet Count 232 LAB MPV 8.7-12.3 fL Mean Platelet Volume 11.1 LAB NRBC 0.0-0.2 /100 WBC NUCLEATED RBC 0.2 Performed By: #### MIRLANDE PADRON #### [facility] [id number] [place] [address] [place] [address] CHEM 7 Collected: 04/07/2018 Status: F Source: [facility] 3:06 AM [facility] REPOSITORY TYPE CODE TESTS RESULT OUT OF REFERENCE UNITS RANGE LAB BUN 7-22 mg/dL BUN High 24 LAB NA 133-143 mmol/L Sodium High 145 LAB K 3.5-5.0 mmol/L Potassium 3.9 LAB CL 98-108 mmol/L Chloride High 112 LAB CO2 22-30 mmol/L Carbon Dioxide 24 LAB GLUC 70-99 mg/dL Glucose 98 LAB CREA 0.70-1.30 mg/dL Low Creatinine 0.68 LAB GAP 7-17 mmol/L Anion Gap 13 LAB BC BUN/CREA Ratio 35 LAB [facility] 278-305 mOsm/kg High Osmolality 306 (Calc) LAB GFR >60 mL/min/1.73 sqM Est GFR,non >60 [facility] LAB GFRA >60 mL/min/1.73 sqM Est GFR, >60 Performed By: #### MIRLANDE PADRON #### [place] [id number] [place] [address] [place] [id number] XR CHEST AP PORTABLE Observed: 04/06/2018 Status: F Source: [facility] ED 11:40 PM [facility] REPOSITORY EXAM: XR CHEST AP PORTABLE ED, 04/06/2018 23:26 PM COMPARISON: No prior studies available for comparison. CLINICAL INDICATIONS: PICC line placement RELEVANT CLINICAL HISTORY: FINDINGS: (Adequate technique) Life Support Devices: Right PICC terminates near the cavoatrial junction. Chest Wall: Degenerative changes of thoracic spine. Fahad: Normal Mediastinum: Normal Pleural Spaces: No definite pleural effusion. No definite pneumothorax. Lungs: Subsegmental atelectasis or scarring at the left base. Lungs are otherwise clear. Cardiac Silhouette: Normal, without overall or specific chamber enlargement, or abnormal calcification Thoracic Aorta: Normal Pulmonary Vessels: Normal, without PVH IMPRESSION: Right PICC appears appropriately positioned. Observed: 04/06/2018 Status: F Source: [facility] TYPE AND CROSS 10:00 PM [facility] REPOSITORY ABO/RH(D): A POSITIVE ANTIBODY SCREEN: NEGATIVE Performed By: #### XM #### [facility] [place] [id number] CBC WITH DIFF EVELINA Collected: 04/06/2018 Status: F Source: [facility] 9:16 PM [facility] REPOSITORY TYPE CODE TESTS RESULT OUT OF REFERENCE UNITS RANGE LAB WBC 3.73-10.10 K/uL WBC Count 11.44 High LAB RBC 4.38-5.83 M/uL RBC Count 2.85 Low LAB HGB 13.4-16.8 g/dL Hemoglobin 8.9 Low LAB HCT 39.6-48.8 % Hematocrit 27.3 Low LAB MCV 79.0-94.5 fL Mean Cell 95.8 High Volume LAB MCH 26.1-33.3 pg Mean Cell 31.2 Hgb LAB MCHC 31.9-36.5 g/dL Mean Cell 32.6 Hgb Conc LAB RDW 10.9-14.3 % RBC 20.0 High Distribution LAB PLT 146-337 K/uL Platelet 187 Count LAB MPV 8.7-12.3 fL Mean 10.9 Platelet Volume LAB NRBC 0.0-0.2 /100 WBC NUCLEATED 0.0 RBC LAB DTYPE Electronic DIFFERENTIAL TYPE Differential LAB IGRE % IMMATURE 2.3 GRANS % LAB SEGS % NEUTROPHIL 66.3 SEGMENTED LAB LYM % LYMPHOCYTE 21.7 % LAB MON % MONOCYTE % 8.9 LAB EOS % *EOSINOPHIL 0.4 % LAB BASO % BASOPHIL % 0.4 LAB IGABS 0.00-0.07 K/uL IMMATURE 0.26 High GRANS ABSOLUTE LAB SBANS 1.57-6.19 K/uL SEGS + 7.58 High Bands,Absolute LAB ALYM 0.83-3.57 K/uL Abs Lymph 2.48 LAB AMONO 0.24-0.93 K/uL Abs Limestone 1.02 High LAB AEOS 0.00-0.48 K/uL Abs Eos 0.05 LAB ABASO 0.00-0.09 K/uL Abs Baso 0.05 Performed By: #### CBCDFJ #### [facility] [address] [place], [place] [address] PT/INR BATTERY - Collected: 04/06/2018 Status: F Source: [facility] CHRI 9:16 PM [facility] REPOSITORY TYPE CODE TESTS RESULT OUT OF RANGE REFERENCE UNITS LAB PT 11.9-14.2 sec PT 13.6 LAB INR 0.9-1.1 INR 1.0 PTT - CHRI Collected: 04/06/2018 Status: F Source: [facility] 9:16 PM [facility] REPOSITORY TYPE CODE TESTS RESULT OUT OF RANGE REFERENCE UNITS LAB PTT 24.0-34.3 sec PTT 30.3 CHEM 7 ED - CHRI Collected: 04/06/2018 Status: F Source: [facility] 9:16 PM [facility] REPOSITORY TYPE CODE TESTS RESULT OUT OF REFERENCE UNITS RANGE LAB BUN 7-22 mg/dL BUN 22 LAB CREA 0.70-1.30 mg/dL Low Creatinine 0.58 LAB NA 133-143 mmol/L Sodium 142 LAB K 3.5-5.0 mmol/L Potassium 4.0 LAB CL 98-108 mmol/L Chloride High 110 LAB CO2 22-30 mmol/L Carbon Dioxide 25 LAB GLUC 70-99 mg/dL Glucose High 101 LAB GFR >60 mL/min/1.73 sqM Est GFR,non >60 Lao LAB GFRA >60 mL/min/1.73 sqM Est GFR, >60 LAB GAP 7-17 mmol/L Anion Gap 11 LAB BC BUN/CREA Ratio 38 LAB OSMC 278-305 mOsm/kg Osmolality 300 (Calc) EMERGENCY DEPARTMENT Observed: 04/06/2018 Status: F Source: [place] SUMMARY 5:[address] [facility] REPOSITORY [facility] Medical Records Department [address] [place] [address] Emergency Department Summary 04/06/18 1714 MR#: [id number] Acct: [id number] Name: EVANS NEWELL Rep #: [id number] : 1960 58 From: Danny De La Rosa DO PCP: Barron Lozada DO Status: REG ER - ER Visit Summary Date of Service: 04/06/18 Chief Complaint: Gastrointestinal bleeding History of Present Illness: The patient is a 58 M who presents with gastrointestinal bleeding that became severe today. Patient states he has pain over the epigastric area. Patient has a G-tube due to gastric outlet obstruction. Patient has had large amount of blood in the bag through his G-tube. Patient also admits to some hematemesis today. Patient has a history of pancreatic cancer and a mass in his stomach. Patient is getting treatments from [facility] [place]. Patient states he goes to [place] monthly for his chemotherapy treatments. Patient was on anticoagulants for a DVT in his subclavian vein however this was stopped 1 month ago due to the bleeding. Patient denies any melena or hematochezia. Patient admits to some diarrhea. Physical Examination: Vital signs showed a blood pressure of 99/75 with a tachycardia of 120. Respirations were 20 and pulse oximeter is 99% on room air patient is in no acute distress. Oral mucosa is pink and moist. Neck is supple. Trachea is midline. There is no JVD noted. Heart was regular and tachycardic. Lungs are clear and equal bilaterally. Abdomen is soft. There is mild diffuse tenderness. There is no rebound or guarding noted. Rectal exam showed good sphincter tone. There were no masses palpated. Stool was guaiac negative. Cranial nerves II through XII are intact. There are no focal motor or sensory deficits noted. Test Results: CBC showed a hemoglobin of 9.2. This was relatively unchanged compared to prior results. White blood cell count was slightly elevated at 12.6. BUN was slightly elevated at 24. AST was 58, ALT was 88, and alk phos was 392. INR was normal at 1.0. PTT was 21.7. Troponin was normal at less than 0.015. Emergency Department Course and Treatment: Patient was given Zofran and IV fluids here. Patient was typed and crossmatched for 2 units of packed red blood cells due to his persistent bleeding. Case was discussed with Dr. Peters. He was in to evaluate the patient and performed an endoscopy here in the emergency department. It appeared as though the bleeding was coming from the mass in his stomach. He stated this is something he cannot take care of here at [facility]. He recommended transferring the patient to a tertiary care center. Patient and family request to go to the [facility]. The case was discussed with the transfer center at [facility]. Patient will be transferred to the emergency department there for further evaluation of the gastrointestinal bleeding. Patient and family were advised that the [facility] will not be providing treatment options for the patient. Patient and family understood and were agreeable with the plan. All questions were answered. Disposition: Transferred Impression: 1. Gastrointestinal bleeding 2. History of metastatic pancreatic cancer This note was generated with Cove[employer] dictation software. It may contain incorrect words, spelling, and punctuation that were not noted in review of the chart prior to signing ED Disposition - Plan for ED Patient: Disposition: [facility] Chief Complaint: GI Bleed Diagnosis: Gastrointestinal bleeding, upper, Pancreatic malignant neoplasm Referrals: Barron Lozada, DO [Primary Care Provider] - What to do if you have Problems For any increased pain, shortness of breath, bleeding, nausea or vomiting, chest pain, or any unexpected problems, contact your Primary Care Provider. Call [email or web address] [employer] ([phone]) or report to the closest Emergency Room. Call 911 if necessary. 04/06/18 1743 <Electronically signed by Danny De La Rosa DO> Date Danny De La Rosa DO Cosigner Signature (If Indicated): Date CC: Barron Lozada DO OPERATIVE REPORT - Observed: 04/06/2018 Status: F Source: [place] ENDOSCOPY 4:[address] [facility] REPOSITORY [facility] Medical Records Department [address] [place] [address] Operative Report - Endoscopy MR#: [id number] Acct: [id number] Name: EVANS NEWELL Rep #: [id number] : 1960 58 From: Gary Peters MD PCP: Mario Barron Status: REG ER Patient Name: Evans Newell Procedure Date: 04/06/2018 4:10 PM Date of : 1960 Age: 58 Procedure: Upper GI endoscopy Indications: Hematemesis Providers: Gary Peters MD Medicines: Monitored Anesthesia Care Patient Profile: This is a 58 year old male. Refer to note in patient chart for documentation of history and physical. Complications: No immediate complications. Procedure: Pre-Anesthesia Assessment: - Prior to the procedure, a History and Physical was performed, and patient medications and allergies were reviewed. The patient's tolerance of previous anesthesia was also reviewed. The risks and benefits of the procedure and the sedation options and risks were discussed with the patient. All questions were answered, and informed consent was obtained. Prior Anticoagulants: The patient has taken no previous anticoagulant or antiplatelet agents. After reviewing the risks and benefits, the patient was deemed in satisfactory condition to undergo the procedure. After obtaining informed consent, the endoscope was passed under direct vision. Throughout the procedure, the patient's blood pressure, pulse, and oxygen saturations were monitored continuously. The gastroscope was introduced through the mouth, and advanced to the second part of duodenum. There was copious blood and blood clot in the stomach. There appeared to be mass vs hypertrophied folds adjacent to PEG tube. There was no active bleeding in the duodenum or prepyloric region. Pylorus was traversed easily. The active bleed was unable to be localized due to the copious blood and the patient began to vomit blood during the procedure and it was aborted. The upper GI endoscopy was somewhat difficult due to excessive bleeding. Scope In: 4:22:35 PM Scope Out: 4:28:21 PM Total Procedure Duration Time 0 hours 5 minutes 46 seconds Findings: Red blood was found in the entire examined stomach. Red blood was found in the entire duodenum. Impression: - Red blood in the entire stomach. - Blood in the entire examined duodenum. - No specimens collected. Recommendation: - Transfer patient to another hospital. Transfuse 2 units. Patient may need IR embolization. - The patient has taken no previous anticoagulant or antiplatelet agents. Procedure Code(s): --- Professional --- 69061, Esophagogastroduodenoscopy, flexible, transoral; diagnostic, including collection of specimen(s) by brushing or washing, when performed (separate procedure) Diagnosis Code(s): --- Professional --- K92.2, Gastrointestinal hemorrhage, unspecified K92.0, Hematemesis CPT copyright 2017 [employer]. All rights reserved. The codes documented in this report are preliminary and upon fish hatchery manager review may be revised to meet current compliance requirements. Gary Peters MD 04/06/2018 4:41:17 PM This report has been signed electronically. Number of Addenda: 0 Note Initiated On: 04/06/2018 4:10 PM 04/06/18 1641 Date Gary Peters MD Cosigner Signature: Date (if indicated) CC: Danny De La Rosa DO; Barron Lozada DO Date Dictated: 04/06/18 1610 Date Transcribed: Airline Lounge Receptionist: MAGNOLIA Signed CONSULTATION Observed: 04/06/2018 Status: F Source: [place] 3:[address] [facility] REPOSITORY [facility] Medical Records Department [address] [place] [address] Consultation 04/06/18 1542 MR#: [id number] Acct: [id number] Name: EVANS NEWELL Rep #: [id number] : 1960 58 From: Gary Peters MD PCP: Barron Lozada DO Status: REG ER Y Location: ED Problem List (1) GI (gastrointestinal bleed) Status: Acute Qualifiers: GI bleed type/associated pathology: unspecified gastrointestinal hemorrhage type Qualified Code(s): K92.2 - Gastrointestinal hemorrhage, unspecified Reason for Consult Date of Consultation: 04/06/18 Reason for Consultation: Upper GI bleed History of Present Illness: The patient is a 58 year old M with past medical history of pancreatic cancer. The patient presented with bloody vomiting and blood in his G-tube. 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 He is TPN dependent. He reports that he had a lesion in his stomach on last EGD and it was biopsied 2 weeks ago. He said about a week ago he had one episode of GI bleeding which stopped spontaneously. He said that 3 hours ago he started having blood in his G-tube and he started having bloody vomitus. He denies any abdominal pain. He is not on any blood thinners currently. Past Medical History Medical History: Medical History (Last Updated 04/06/18 @ 15:44 by Gary Peters MD) Pancreas cancer C25.9 Allergies No Known Allergies Allergy (Verified 03/31/18 19:49) Home Medications: Ambulatory Orders Medication Instructions Recorded Bromelains [Bromelain] 500 gm MC BID 01/17/18 Surgical History: - - PEG tube Smoking Status: Never smoker Drugs: None - *Family History Paternal History Items: No pertinent history Review of Systems Constitutional: Reports: Anorexia, Weight Change. Denies: Chills, Fever HEENT: Denies: Difficulty Hearing Cardiovascular: Denies: Chest Pain Respiratory: Denies: Cough, Shortness of Breath Gastrointestinal: Reports: Hematemesis, Nausea, Vomiting. Denies: Abdominal Pain Genitourinary: Denies: Dysuria Musculoskeletal: Denies: Joint Tenderness Skin: Denies: Dryness Neurological: Denies: Tingling Hematologic/ Lymphatic: Reports: Hx of blood clot. Denies: Petechiae, Purpura Patient Problems: Active and Suspected Problems (Last Updated 04/06/18 @ 15:44 by Gary Peters MD) GI (gastrointestinal bleed) (Acute) - Physical Exam General: Alert, Oriented x3, Cooperative HEENT: Atraumatic Oral: Dry Mucosa Neck: Supple Lungs: Normal air movement Cardiovascular: Regular Rhythm, Tachycardic Abdomen: Soft, Non-Distended, - - PEG tube with copious bright blood Extremities: No clubbing Skin: No rashes Musculoskeletal: Cachexia Neurological: Cranial nerves II-XII grossly intact Psych/Mental Status: Normal Affect Vital Signs Pulse Resp BP Pulse Ox 108 H 98 H 98/72 98 04/06/18 15:15 04/06/18 15:15 04/06/18 15:15 04/06/18 15:15 Oxygen Delivery Method Room Air Weight: 191 lb 12.835 oz Body Mass Index (BMI) 23.3 Intake and Output for Last 24 Hours Output Total 650 / 650 Balance -650 / -650 Microbiology Past 72 Hours 04/06/18 15:00 Stool Occult Blood (YONI) - Final Stool Laboratory Tests Past 24 Hrs WBC 12.6 H RBC 2.99 L Hgb 9.2 L Hct 29.3 L MCV 98.0 H MCH 30.8 MCHC 31.4 L RDW 20.3 H RDW Differential 70.7 H Clinical Impression(s) from Imaging Studies Chest X-Ray 04/06/18 13:29 IMPRESSION: No acute infiltration is seen. Electronically Signed: Jewel Cabello MD at 14:37 EST Tel [phone], Service support , Abdomen/Pelvis CT 04/06/18 13:30 IMPRESSION: Distended stomach with heterogeneous appearance suggestive of a possible hemorrhage within the stomach. A PEG tube is seen along the anterior fundal portion of the stomach. Left perinephric and periureteric stranding with hydronephrosis. A double-J stent catheter is seen in situ. Mesenteric lymphadenopathy with increased markings in the left of the mesentery. Electronically Signed: Jewel Cabello MD at 14:36 EST Tel [phone], Service support , Assessment/Plan All Active Problems (Last Updated 04/06/18 @ 15:44 by Gary Peters MD) GI (gastrointestinal bleed) (Acute) 58-year-old male with upper GI bleed 1. Patient had over 600 cc of fresh blood in his Gandhi bag connected to his PEG tube. Patient also had bright red bloody vomitus. 2. Patient has history of pancreatic cancer and he is being treated by the [facility] [place] and he is TPN dependent. According to the patient had a PEG tube placed because he has gastric outlet obstruction likely from his tumor. The patient recently had a lesion biopsied in the stomach 2 weeks ago. He reports that this bleed started approximately 3 hours ago. He feels as though his stomach is still full of blood. 3. I explained that I could perform an EGD in the emergency room to try to elucidate the source of the bleeding. I explained that if it was from the mass or uncontrollable stomach lesion I would transfer the patient. The risks of the procedure including not limited to bleeding, infection, aspiration, perforation of the GI tract. The patient understands the risks and is on to proceed with EGD. 4. Patient's hemoglobin is 9.5. He did receive 1 bolus of fluid I am giving him 1 more bolus of normal saline as he is still tachycardic. Gary Peters MD Pager: [facility] [address] [place] [address] [address] [place] [address] Office: 04/06/18 1475 <Electronically signed by Gary Peters MD> Date Gary Peters MD [facility] Signature (if applicable): Date CC: Barron Lozada DO Signed Observed: 04/06/2018 Status: F Source: [place] STOOL OCCULT BLOOD 3:[address] [facility] IFOB REPOSITORY Order Date: 04/06/18 Has pt arrived? Y STOB iFOB Occult Blood Negative Performed By: #### M100.7900 #### [facility] [address] [place] [address]. [place], [address] CBC W/DIFF, AUTOMATED Collected: 04/06/2018 Status: F Source: [place] 1:[address] [facility] REPOSITORY TYPE CODE TESTS RESULT OUT OF RANGE REFERENCE UNITS LAB L100.1000 4.4-11.0 K/mm3 High WBC 12.6 LAB L100.1200 4.6-6.2 M/mm3 Low RBC 2.99 LAB L100.1300 13.0-16.5 g/dl Low HGB 9.2 LAB L100.1400 40-54 % Low HCT 29.3 LAB L100.1500 80-94 fL High MCV 98.0 LAB L100.1600 27.0-32.0 pg Normal MCH 30.8 LAB L100.1700 32-36 g/gl Low MCHC 31.4 LAB L100.1810 11.6-14.6 % High RDW CV 20.3 LAB L100.1820 35.1-43.9 fl High RDW SD 70.7 LAB L100.1900 150-450 K/mm3 Normal PLT 204 LAB L100.2000 6.2-12.0 fl Normal MPV 10.3 LAB L100.2100 47-70 % High NEUT% 72.7 LAB L100.2200 19-41 % Low LY% 13.5 LAB L100.2300 0-10 % High MONO% 11.8 LAB L100.2400 0-5 % Normal EO% 1.0 LAB L100.2500 0-1 % Normal BASO% 0.6 LAB L100.2550 0.0-0.9 % Normal IM GRAN % 0.400 Result Comment: IG% - Immature Granulocytes (promyelocytes, myelocytes and metamyelocytes) > 1% indicates that a LEFT SHIFT is Present. LAB L100.2620 2.0-7.7 X10 3/uL Absolute Neut High 9.2 LAB L100.2720 0.83-4.51 X10 3/ul Absolute Lymph Normal 1.70 LAB L100.5500 ADEQ PLT EST Normal ADEQUATE LAB L100.7300 ANISO Normal 2+ LAB L100.7500 POLYCHROMASIA Normal 1+ LAB L100.7600 HYPOCHROMASIA Normal 2+ LAB L100.7800 MACROCYTE Normal 1+ Performed By: #### L100.0100 #### [facility] [address] [place], [address] COMPREHENSIVE METABOLIC Collected: 04/06/2018 Status: F Source: [place] 1:[address] [facility] REPOSITORY TYPE CODE TESTS RESULT OUT OF RANGE REFERENCE UNITS LAB L501.0100 74-106 mg/dL High GLU 222 Result Comment: Glucose result greater than or equal to 200 mg/dL suggests DIABETES MELLITUS per A.D.A. criteria. Please note revised GLUCOSE reference range effective 2017. LAB L501.1000 7-18 mg/dL High BUN 24 LAB L501.1100 0.70-1.30 mg/dL Normal CREAT,SERUM 0.81 Result Comment: The validity of the calculated GFR AND GFRAA in patients over 70 years has not been determined. Clinical correlation is essential. LAB L501.1110 >60 mL/min Normal EST GFR 103 Result Comment: Non- GFR Calc LAB L501.1115 >60 mL/min Normal EST GFR - AA 125 Result Comment: GFR Calc LAB L501.1255 ml/min Normal Estimated CRCL 120.56 LAB L501.1300 10-20 RATIO High BUN/CRE 29.6 LAB L501.1500 6.4-8. g/dL Low 2 T PROT 5.7 LAB L501.1800 3.2-5. g/dL Low 0 ALB 2.1 LAB L501.1950 2.2-4. g/dL 2 GLOB Normal 3.6 LAB L501.2000 0.9-2. RATIO Low 4 A/G 0.6 LAB L501.2200 8.5-10 mg/dL Low .1 CA 7.9 LAB L501.4100 15-37 U/L High AST 58 LAB L501.4305 45-117 U/L High ALK P 392 LAB L501.4405 16-61 U/L High ALT 88 LAB L501.4600 0.20-1 mg/dL .00 T BILI Normal 0.60 LAB L501.5300 136-14 mmol/L 5 NA Normal 144 LAB L501.5600 3.5-5. mmol/L 1 K Normal 3.5 LAB L501.5900 98-107 mmol/L CL Normal 106 LAB L501.6100 21.0-3 mmol/L 2.0 CO2 Normal 25.0 LAB L501.6200 5-15 GAP Normal 13 Performed By: #### L500.4050, L501.2450, L501.4010 #### [facility] [address] [place], [address] LIPASE Collected: 04/06/2018 Status: F Source: [place] 1:[address] [facility] REPOSITORY TYPE CODE TESTS RESULT OUT OF RANGE REFERENCE UNITS LAB L501.2450 73-393 U/L Normal LIPASE 290 Performed By: #### L500.4050, L501.2450, L501.4010 #### [facility] [address] [place], [address] TROPONIN-I Collected: 04/06/2018 Status: F Source: [place] 1:[address] [facility] REPOSITORY TYPE CODE TESTS RESULT OUT OF RANGE REFERENCE UNITS LAB L501.4010 <0.045 ng/mL Normal < 0.015 TROPONIN-I Result Comment: TROPONIN-I EXPECTED VALUES <0.045 Negative 0.045 - 0.590 Consistent with Cardiac Damage > OR = 0.600 Critical Value Not every elevated troponin is indicative of OR. These values should be used with clinical judgement in examining the patient's clinical picture for diagnosis. To establish a diagnosis of OR versus myocardial injury, there must be a demonstrated rise and/or fall in the troponin values, in addition to ischemic symptoms, EKG changes, new regional wall motion abnormality, and/or angiographical evidence. PLEASE NOTE: REFERENCE RANGES EDITED 17 Performed By: #### L500.4050, L501.2450, L501.4010 #### [facility] [address] [place], [address] PROTHROMBIN TIME W/INR Collected: 04/06/2018 Status: F Source: [place] 1:[address] [facility] REPOSITORY TYPE CODE TESTS RESULT OUT OF RANGE REFERENCE UNITS LAB L300.4150 11.7-14.9 SECONDS Normal PROTIME 12.8 LAB L300.4200 Normal INR 1.0 Performed By: #### L300.3900, L300.4310 #### [facility] [address] [place], [place], [address] PARTIAL THROMBOPLAST Collected: 04/06/2018 Status: F Source: [place] TIME 1:[address] [facility] REPOSITORY TYPE CODE TESTS RESULT OUT OF REFERENCE UNITS RANGE LAB L300.4310 24.1-36.2 Seconds Low PTT 21.7 Performed By: #### L300.3900, L300.4310 #### [facility] [address] [place], [place], [address] TYPE AND SCREEN Collected: 04/06/2018 Status: F Source: [place] 1:[address] [facility] REPOSITORY Order Comment: CMV NEG? N Number of units to transfuse: 2 Is there a >20% drop in pt's BP? Y Is pt's HR > 100 bpm? Y Reason for Ordering Blood: Acute Are the blood/blood products to be transfused? Y Is the patient having/had surgery? N Give When? When Ready Irradiated? N Leukodepleted? Y TYPE CODE TESTS RESULT OUT OF RANGE REFERENCE UNITS LAB B10.0800 A Normal BLOOD TYPE GEL POSITIVE LAB B100.4000 Normal Antibody NEGATIVE Screen Performed By: #### B101.7450 #### [facility] [address] [place], [place], [address] RC Collected: 04/06/2018 Status: F Source: [place] 1:[address] [facility] REPOSITORY TYPE CODE TESTS RESULT OUT OF REFERENCE UNITS RANGE LAB U100.0000 [id number] TRANSFUSED PRODUCT: T AND S with Crossmatch, Red Cells COUNT: 1 Performed By: #### U100.0000 #### [facility] - refer to report for specific site ABDOMEN/PELVIS WITHOUT Observed: 04/06/2018 Status: F Source: [place] CONT 1:[address] [facility] REPOSITORY [facility] Imaging Services [address] [place] [address] Abdomen/Pelvis without Cont MR#: [id number] Acct: [id number] Name: EVANS NEWELL Rep #: [id number] : 1960 M 58 From: Jewel Cabello MD PCP: Barron Lozada DO Status: REG ER Study: Abdomen/Pelvis without Cont Date of Exam: 04/06/18 Exam# [id number] Ordering Dr: Danny De La Rosa DO STUDY: CT ABDOMEN AND PELVIS WITHOUT CONTRAST REASON FOR EXAM: Male, 58 years old. History of pancreatic carcinoma. Prior stent placement. Hematemesis. RADIATION DOSAGE (If Supplied By Facility): CTDIvol = ( 9.89 ) mGy, DLP = ( 541.29 ) mGycm TECHNIQUE: Transaxial images were obtained from the dome of the diaphragm to the symphysis pubis without oral contrast, and without intravenous contrast. Sagittal and coronal images were reconstructed. Individualized dose optimization techniques were used for this CT. COMPARISON: None. FINDINGS: Fine reticular nodular pattern in the left lower lobe. Metastatic disease should be ruled out. Small pericardial effusion. Normal liver. There are surgical clips in the gallbladder fossa consistent with a prior cholecystectomy. Normal spleen. Normal pancreas. There are multiple small rounded densities within the root of the mesentery just contacts of the pancreas. Increased markings are seen within the peritoneal fat. The changes most likely represent multiple small lymph nodes in the congestion. Normal bilateral adrenal glands. There is a 2.1 cm x 2 cm cyst in the lateral aspect of the right kidney. Mild degree of the left hydronephrosis. A double-J stent catheter is seen with the proximal tip in the left renal pelvis and the distal tip in the left lateral base. There is evidence of left perinephric and left periureteric stranding. There is a 2.1 cm cyst in the anterior lateral portion of the left kidney. A PEG tube is seen within the anterior fundal portion of the stomach. The stomach is distended with heterogeneous density. Blood within the stomach should be ruled out. Normal small intestine. Normal colon. The appendix is visualized and appears normal. There is diffuse atherosclerotic calcification of the abdominal aorta, without a demonstrated aneurysm. Normal inferior vena cava. There is borderline retroperitoneal lymphadenopathy with enlarged nodes no greater than 10mm in the short axis diameter. Normal urinary bladder. Normal abdominal wall. There are degenerative changes of the visualized lumbar spine. The patient is status post left total hip placement. CT/Abdomen/Pelvis without Cont IMPRESSION: Distended stomach with heterogeneous appearance suggestive of a possible hemorrhage within the stomach. A PEG tube is seen along the anterior fundal portion of the stomach. Left perinephric and periureteric stranding with hydronephrosis. A double-J stent catheter is seen in situ. Mesenteric lymphadenopathy with increased markings in the left of the mesentery. Electronically Signed: Jewel Cabello MD at 14:36 EST Tel [phone], Service support , CC: Danny De La Rosa DO; Barron Lozada DO Airline Lounge Receptionist: Signed CHEST PA AND LATERAL Observed: 04/06/2018 Status: F Source: [place] 1:[address] [facility] REPOSITORY [facility] Imaging Services [address] [place] [address] Chest PA and Lateral MR#: [id number] Acct: [id number] Name: EVANS NEWELL Rep #: [id number] : 1960 M 58 From: Jewel Cabello MD PCP: Barron Lozada DO Status: REG ER Study: Chest PA and Lateral Date of Exam: 04/06/18 Exam# [id number] Ordering Dr: Danny De La Rosa DO STUDY: X-RAY CHEST REASON FOR EXAM: Male, 58 years old. Hematemesis. Chest pain and chest pressure. TECHNIQUE: AP and lateral views of the chest. COMPARISON: Comparison is made with prior study January 17, 2018. FINDINGS: EKG electrodes are seen. The previously seen left PICC line catheter has been removed. The lungs are clear and expanded. There is no demonstrated pleural abnormality. There is mild cardiac enlargement. Normal mediastinum and fahad. Normal visualized pulmonary arteries. There is atherosclerotic tortuosity of the aortic arch and descending thoracic aorta. There are degenerative changes of the visualized thoracic spine. Normal visualized ribs, clavicles, and shoulders. There is no demonstrated abnormality of the visualized soft tissue structures of the upper abdomen. RAD/Chest PA and Lateral IMPRESSION: No acute infiltration is seen. Electronically Signed: Jewel Cabello MD at 14:37 EST Tel [phone], Service support , CC: Danny De La Rosa DO; Barron Lozada DO Airline Lounge Receptionist: Signed CBC W/DIFF, AUTOMATED Collected: 04/02/2018 Status: F Source: [place] 1:[address] [facility] REPOS[facility] TYPE CODE TESTS RESULT OUT OF RANGE REFERENCE UNITS LAB L100.1000 4.4-11.0 K/mm3 High WBC 20.9 LAB L100.1200 4.6-6.2 M/mm3 Low RBC 3.15 LAB L100.1300 13.0-16.5 g/dl Low HGB 9.7 LAB L100.1400 40-54 % Low HCT 30.5 LAB L100.1500 80-94 fL High MCV 96.8 LAB L100.1600 27.0-32.0 pg Normal MCH 30.8 LAB L100.1700 32-36 g/gl Low MCHC 31.8 LAB L100.1810 11.6-14.6 % High RDW CV 18.7 LAB L100.1820 35.1-43.9 fl High RDW SD 64.0 LAB L100.1900 150-450 K/mm3 Normal PLT 151 LAB L100.2000 6.2-12.0 fl Normal MPV 11.5 LAB L100.2100 47-70 % High NEUT% 87.1 LAB L100.2200 19-41 % Low LY% 8.7 LAB L100.2300 0-10 % Normal MONO% 2.4 LAB L100.2400 0-5 % Normal EO% 1.0 LAB L100.2500 0-1 % Normal BASO% 0.2 LAB L100.2550 0.0-0.9 % Normal IM GRAN % 0.600 Result Comment: IG% - Immature Granulocytes (promyelocytes, myelocytes and metamyelocytes) > 1% indicates that a LEFT SHIFT is Present. LAB L100.2620 2.0-7.7 X10 3/uL High Absolute Neut 18.2 LAB L100.2720 0.83-4.51 X10 3/ul Normal Absolute Lymph 1.81 LAB L100.4500 Normal SMEAR COMMENT SCANNED Result Comment: RARE BANDS NOTED Performed By: #### L100.0100 #### [facility] [address] [place], [address] COMPREHENSIVE METABOLIC Collected: 04/02/2018 Status: F Source: [place]X 1:[address] [facility] REPOS[facility] TYPE CODE TESTS RESULT OUT OF RANGE REFERENCE UNITS LAB L501.0100 74-106 mg/dL Low GLU 60 Result Comment: Please note revised GLUCOSE reference range effective 2017. LAB L501.1000 7-18 mg/dL High BUN 22 LAB L501.1100 0.70-1.30 mg/dL Low CREAT,SERUM 0.49 Result Comment: The validity of the calculated GFR AND GFRAA in patients over 70 years has not been determined. Clinical correlation is essential. LAB L501.1110 >60 mL/min Normal EST GFR 186 Result Comment: Non- GFR Calc LAB L501.1115 >60 mL/min Normal EST GFR - AA 225 Result Comment: GFR Calc LAB L501.1300 10-20 RATIO High BUN/CRE 45.1 LAB L501.1500 6.4-8.2 g/dL Low T PROT 6.1 LAB L501.1800 3.2-5.0 g/dL Low ALB 2.3 LAB L501.1950 2.2-4.2 g/dL Normal GLOB 3.8 LAB L501.2000 0.9-2.4 RATIO Low A/G 0.6 LAB L501.2200 8.5-10.1 mg/dL Low CA 8.1 LAB L501.4100 15-37 U/L High AST 49 LAB L501.4305 45-117 U/L High ALK P 484 LAB L501.4405 16-61 U/L High ALT 85 LAB L501.4600 0.20-1.00 mg/dL T Normal BILI 0.60 LAB L501.5300 136-145 mmol/L NA Normal 144 LAB L501.5600 3.5-5.1 mmol/L K Normal 3.8 LAB L501.5900 98-107 mmol/L CL Normal 105 LAB L501.6100 21.0-32.0 mmol/L Normal CO2 28.0 LAB L501.6200 5-15 Normal GAP 11 Performed By: #### L500.4050, L501.2300, L501.5000, L501.5200, L506.0500 #### [facility] [address] [place], [address] PHOSPHORUS Collected: 04/02/2018 Status: F Source: [place] 1:[address] [facility] REPOSITORY TYPE CODE TESTS RESULT OUT OF RANGE REFERENCE UNITS LAB L501.2300 2.5-4.9 mg/dL Normal PHOS 3.0 Performed By: #### L500.4050, L501.2300, L501.5000, L501.5200, L506.0500 #### [facility] [address] [place], [place], [id number] TRIGLYCERIDES Collected: 04/02/2018 Status: F Source: [place] 1:[address] [facility] REPOSITORY TYPE CODE TESTS RESULT OUT OF RANGE REFERENCE UNITS LAB L501.5000 mg/dL Normal TRIG 76 Result Comment: The drugs N-Acetylcysteine and Metamizole may falsely depress this assay. Serum Triglycerides Reference Interval Normal <150 mg/dL Borderline high 150 - 199 mg/dL High 200 - 499 mg/dL Very High > or = 500 mg/dL Performed By: #### L500.4050, L501.2300, L501.5000, L501.5200, L506.0500 #### [facility] [address] [place], [address] MAGNESIUM Collected: 04/02/2018 Status: F Source: [place] 1:[address] [facility] REPOS[facility] TYPE CODE TESTS RESULT OUT OF RANGE REFERENCE UNITS LAB L501.5200 1.6-2.6 mg/dL Normal MG 1.9 Performed By: #### L500.4050, L501.2300, L501.5000, L501.5200, L506.0500 #### [facility] [address] [place], [address] PREALBUMIN Collected: 04/02/2018 Status: F Source: [place] 1:[address] [facility] REPOS[facility] TYPE CODE TESTS RESULT OUT OF REFERENCE UNITS RANGE LAB L506.0500 20.0-40.0 mg/dL Low PREALBUMIN 19.1 Performed By: #### L500.4050, L501.2300, L501.5000, L501.5200, L506.0500 #### [facility] [address] [place], [address] EMERGENCY DEPARTMENT Observed: 03/31/2018 Status: F Source: [place] SUMMARY 11:[address] [facility] REPOSITORY [facility] Medical Records Department [address] [place] [address] Emergency Department Summary 03/31/182034 MR#: [id number] Acct: [id number] Name: EVANS NEWELL Rep #: [id number] : 1960 58 From: Darren Aponte PCP: Barron Lozada DO Status: REG ER - ER Visit Summary Date of Service: 03/31/18 Chief Complaint: Blood from drain tube History of Present Illness: The patient is a 58 M patient presents with spouse for noticing bled from drain to connected his stomach started at 4 PM this evening. This was placed 4 weeks ago. History of pancreatic cancer with obstruction to his bowels. He is followed by cancer treatment center in [place] Dr. Mcgee. Initially was at [facility] however left and went to the cancer treatment center. Patient was on Eliquis for left subclavian DVT was transitioned over to Lovenox twice daily. She states had a biopsy stomach lesion a week ago up at the facility due to an abnormal lesion during his EGD and drain placement. Reported that lesion had mostly resolved however spouse states that the significant size biopsy was taken that was reported. He is on chemo with treatment 3 days ago up at their facility. Neulasta was given 2 days ago. He gets TPN for nutrition. Hemoglobin is 10.1 on the 12th. White blood cell count 14.3 before Neulasta. He is not giving himself Lovenox since the biopsy. No lightheaded symptoms. Physical Examination: General: Alert and oriented 3, no acute distress HEENT: Normocephalic, atraumatic. Moist mucosa membranes Neck: supple, nontender. Cardiovascular: Regular rate and rhythm, no murmurs Respiratory: Normal breath sounds, symmetric, no distress Abdomen: Soft, nontender, nondistended. Drain tube from epigastrium, occult blood in tubing and bag. Extremities: Nontender, no edema, pulses intact 4 Neuro: no focal neurological deficits. Test Results: Hemoglobin 10.5. White count 36.6. Emergency Department Course and Treatment: Patient nontoxic. Orthostatics negative. History concerns for bleeding from his recent biopsy from 6 days ago. Vitals are stable, he will 10.5. This is slightly higher than labs from 5 days ago. White count 36.6, they expected this elevation due to receiving Neulasta. No fevers. Patient is currently on Protonix twice a day along with Carafate 4 times a day. Discussed with patient monitoring symptoms. Did attempt to call his GI physician Dr. Sanchez from [facility], laboratory secretary left a couple voicemails. Discussed with patient significant other, continue the medications call in the morning during normal hours to discuss visit and plan of care. Signs and symptoms discussed to return. Treatment Plan: [] Disposition: Discharge Impression: 1. Upper GI bleed recent biopsy This note was generated with Cove[employer] dictation software. It may contain incorrect words, spelling, and punctuation that were not noted in review of the chart prior to signing ED Disposition - Plan for ED Patient: Disposition: Home or Assisted Living Chief Complaint: GI Bleed Diagnosis: Upper GI bleed, Recent stomach biopsy Instructions: ED Bleed UGI Stable Referrals: Barron Lozada DO [Primary Care Provider] - Additional Instructions: Hemoglobin 10.5 today. WBC 36.6. Status post Neulasta. Call your GI physician tomorrow to discuss your visit in the ED. continue your Protonix and Carafate. What to do if you have Problems For any increased pain, shortness of breath, bleeding, nausea or vomiting, chest pain, or any unexpected problems, contact your Primary Care Provider. Call [facility] ([phone]) or report to the closest Emergency Room. Call 911 if necessary. 03/31/18 2300 <Electronically signed by Draren Aponte> Date Darren Verdin DO Cosigner Signature (If Indicated): Date CC: Barron Lozada DO BASIC METABOLIC Collected: 03/31/2018 Status: F Source: [place] PROFILE (BMP) 8:[address] [facility] REPOSITORY TYPE CODE TESTS RESULT OUT OF RANGE REFERENCE UNITS LAB L501.0100 74-106 mg/dL Normal GLU 83 Result Comment: Please note revised GLUCOSE reference range effective 2017. LAB L501.1000 7-18 mg/dL High BUN 19 LAB L501.1100 0.70-1.30 mg/dL Low CREAT,SERUM 0.59 Result Comment: The validity of the calculated GFR AND GFRAA in patients over 70 years has not been determined. Clinical correlation is essential. LAB L501.1110 >60 mL/min Normal EST GFR 149 Result Comment: Non- GFR Calc LAB L501.1115 >60 mL/min Normal EST GFR - AA 180 Result Comment: GFR Calc LAB L501.1255 ml/min Normal Estimated CRCL 165.51 LAB L501.1300 10-20 RATIO High BUN/CRE 32.1 LAB L501.2200 8.5-10 mg/dL Low .1 CA 8.2 LAB L501.5300 136-14 mmol/L 5 NA Normal 141 LAB L501.5600 3.5-5. mmol/L 1 K Normal 3.7 LAB L501.5900 98-107 mmol/L High CL 108 LAB L501.6100 21.0-3 mmol/L 2.0 CO2 Normal 26.0 LAB L501.6200 5-15 GAP Normal 7 Performed By: #### L500.2500 #### [facility] [address] [place], [address] PROTHROMBIN TIME W/INR Collected: 03/31/2018 Status: F Source: [place] 8:[address] [facility] REPOSITORY TYPE CODE TESTS RESULT OUT OF RANGE REFERENCE UNITS LAB L300.4150 11.7-14.9 SECONDS Normal PROTIME 12.5 LAB L300.4200 Normal INR 0.9 Performed By: #### L300.3900, L300.4310 #### [facility] [address] [place], [address] PARTIAL THROMBOPLAST Collected: 03/31/2018 Status: F Source: [place] TIME 8:[address] [facility] REPOSITORY TYPE CODE TESTS RESULT OUT OF RANGE REFERENCE UNITS LAB L300.4310 24.1-36.2 Seconds Normal PTT 32.9 Performed By: #### L300.3900, L300.4310 #### [facility] [address] [place], [address] CBC W/DIFF, AUTOMATED Collected: 03/31/2018 Status: C Source: [place] 8:[address] [facility] REPOSITORY TYPE CODE TESTS RESULT OUT OF RANGE REFERENCE UNITS LAB L100.1000 4.4-11.0 K/mm3 High alert WBC 36.6 Result Comment: CRITICAL VALUE VERIFIED. CALLED TO KIKA 03/31/182120 Milagro Vance. RESULTS READ BACK BY SAME . LAB L100.1200 4.6-6.2 M/mm3 Low RBC 3.41 LAB L100.1300 13.0-16.5 g/dl Low HGB 10.5 LAB L100.1400 40-54 % Low HCT 32.5 LAB L100.1500 80-94 fL High MCV 95.3 LAB L100.1600 27.0-32.0 pg Normal MCH 30.8 LAB L100.1700 32-36 g/gl Normal MCHC 32.3 LAB L100.1810 11.6-14.6 % High RDW 18.9 CV LAB L100.1820 35.1-43.9 fl High RDW 65.8 SD LAB L100.1900 150-450 K/mm3 Normal PLT 187 LAB L100.2000 6.2-12.0 fl Normal MPV 10.5 LAB L100.2100 47-70 % High NEUT% 90.2 LAB L100.2200 19-41 % Low LY% 6.3 LAB L100.2300 0-10 % Normal MONO% 0.7 LAB L100.2400 0-5 % Normal EO% 0.1 LAB L100.2500 0-1 % Normal BASO% 0.1 LAB L100.2550 0.0-0.9 % High IM 2.600 GRAN % Result Comment: IG% - Immature Granulocytes (promyelocytes, myelocytes and metamyelocytes) > 1% indicates that a LEFT SHIFT is Present. LAB L100.2620 2.0-7.7 X10 3/uL High Absolute Neut 33.0 LAB L100.2720 0.83-4.51 X10 3/ul Normal Absolute Lymph 2.31 LAB L100.4500 Normal SMEAR COMMENT SCANNED Result Comment: NEUTROPHILIA NOTED LEUKOCYTOSIS NOTED 2+ ANISOCYTOSIS LAB L100.9900 Normal Reviewed PATH REV Result Comment: Neutrophilic leukocytosis. Macrocytic anemia. Clinical correlation necessary. Willam Carrillo M.D. 04/02/18 AMENDED REPORT 04/02/18 1258 PATH REV previously reported as: Danya ramsay Performed By: #### L100.0100 #### [facility] [address] [place], [address] CBC W/DIFF, AUTOMATED Collected: 03/19/2018 Status: F Source: [place] 2:[address] [facility]POS[facility] TYPE CODE TESTS RESULT OUT OF RANGE REFERENCE UNITS LAB L100.1000 4.4-11.0 K/mm3 High WBC 18.7 LAB L100.1200 4.6-6.2 M/mm3 Low RBC 3.10 LAB L100.1300 13.0-16.5 g/dl Low HGB 9.5 LAB L100.1400 40-54 % Low HCT 30.2 LAB L100.1500 80-94 fL High MCV 97.4 LAB L100.1600 27.0-32.0 pg Normal MCH 30.6 LAB L100.1700 32-36 g/gl Low MCHC 31.5 LAB L100.1810 11.6-14.6 % High RDW CV 19.6 LAB L100.1820 35.1-43.9 fl High RDW SD 67.3 LAB L100.1900 150-450 K/mm3 Normal PLT 181 LAB L100.2000 6.2-12.0 fl Normal MPV 11.1 LAB L100.2100 47-70 % High NEUT% 87.8 LAB L100.2200 19-41 % Low LY% 5.4 LAB L100.2300 0-10 % Normal MONO% 5.7 LAB L100.2400 0-5 % Normal EO% 0.1 LAB L100.2500 0-1 % Normal BASO% 0.2 LAB L100.2550 0.0-0.9 % Normal IM GRAN % 0.800 Result Comment: IG% - Immature Granulocytes (promyelocytes, myelocytes and metamyelocytes) > 1% indicates that a LEFT SHIFT is Present. LAB L100.2620 2.0-7.7 X10 3/uL High Absolute Neut 16.4 LAB L100.2720 0.83-4.51 X10 3/ul Normal Absolute Lymph 1.00 LAB L100.4500 Normal SMEAR COMMENT Result Comment: A FEW BANDS NOTED Performed By: #### L100.0100 #### [facility] [address] [place], [place], [address] COMPREHENSIVE METABOLIC Collected: 03/19/2018 Status: F Source: [place]X 2:[address] [facility] REPOSITORY Order Comment: NO TUBES SENT FOR TRACE ELEMENTS. TYPE CODE TESTS RESULT OUT OF RANGE REFERENCE UNITS LAB L501.0100 74-106 mg/dL Normal GLU 85 Result Comment: Please note revised GLUCOSE reference range effective 2017. LAB L501.1000 7-18 mg/dL High BUN 19 LAB L501.1100 0.70-1.30 mg/dL Low CREAT,SERUM 0.58 Result Comment: The validity of the calculated GFR AND GFRAA in patients over 70 years has not been determined. Clinical correlation is essential. LAB L501.1110 >60 mL/min Normal EST GFR 154 Result Comment: Non- GFR Calc LAB L501.1115 >60 mL/min Normal EST GFR - AA 186 Result Comment: GFR Calc LAB L501.1300 10-20 RATIO High BUN/CRE 33.0 LAB L501.1500 6.4-8.2 g/dL Low T PROT 5.6 LAB L501.1800 3.2-5.0 g/dL Low ALB 2.3 LAB L501.1950 2.2-4.2 g/dL Normal GLOB 3.3 LAB L501.2000 0.9-2.4 RATIO Low A/G 0.7 LAB L501.2200 8.5-10.1 mg/dL Low CA 7.9 LAB L501.4100 15-37 U/L High AST 44 LAB L501.4305 45-117 U/L High ALK P 349 LAB L501.4405 16-61 U/L High ALT 79 LAB L501.4600 0.20-1.00 mg/dL T Normal BILI 0.40 LAB L501.5300 136-145 mmol/L NA Normal 142 LAB L501.5600 3.5-5.1 mmol/L K Normal 3.9 LAB L501.5900 98-107 mmol/L CL Normal 104 LAB L501.6100 21.0-32.0 mmol/L Normal CO2 25.0 LAB L501.6200 5-15 Normal GAP 13 Performed By: #### L500.4050, L501.2300, L501.5000, L501.5200, L506.0500 #### [facility] [address] [place], [place], [address] PHOSPHORUS Collected: 03/19/2018 Status: F Source: [place] 2:[address] [facility] REPOSITORY Order Comment: NO TUBES SENT FOR TRACE ELEMENTS. TYPE CODE TESTS RESULT OUT OF RANGE REFERENCE UNITS LAB L501.2300 2.5-4.9 mg/dL Normal PHOS 3.2 Performed By: #### L500.4050, L501.2300, L501.5000, L501.5200, L506.0500 #### [facility] [address] [place], [address] TRIGLYCERIDES Collected: 03/19/2018 Status: F Source: [place] 2:[address] [facility] REPOSITORY Order Comment: NO TUBES SENT FOR TRACE ELEMENTS. TYPE CODE TESTS RESULT OUT OF RANGE REFERENCE UNITS LAB L501.5000 mg/dL Normal TRIG 81 Result Comment: The drugs N-Acetylcysteine and Metamizole may falsely depress this assay. Serum Triglycerides Reference Interval Normal <150 mg/dL Borderline high 150 - 199 mg/dL High 200 - 499 mg/dL Very High > or = 500 mg/dL Performed By: #### L500.4050, L501.2300, L501.5000, L501.5200, L506.0500 #### [facility] [address] [place], [address] MAGNESIUM Collected: 03/19/2018 Status: F Source: [place] 2:[address] [facility] REPOSITORY Order Comment: NO TUBES SENT FOR TRACE ELEMENTS. TYPE CODE TESTS RESULT OUT OF RANGE REFERENCE UNITS LAB L501.5200 1.6-2.6 mg/dL Normal MG 1.7 Performed By: #### L500.4050, L501.2300, L501.5000, L501.5200, L506.0500 #### [facility] [address] [place], [address] PREALBUMIN Collected: 03/19/2018 Status: F Source: [place] 2:[address] [facility] REPOSITORY Order Comment: NO TUBES SENT FOR TRACE ELEMENTS. TYPE CODE TESTS RESULT OUT OF RANGE REFERENCE UNITS LAB L506.0500 20.0-40.0 mg/dL Normal PREALBUMIN 22.9 Performed By: #### L500.4050, L501.2300, L501.5000, L501.5200, L506.0500 #### [facility] [address] [facility] [place], [place], [address] CBC W/DIFF, AUTOMATED Collected: 03/05/2018 Status: F Source: [place] 10:[address] [facility] REPOSITORY TYPE CODE TESTS RESULT OUT OF RANGE REFERENCE UNITS LAB L100.1000 4.4-11.0 K/mm3 Normal WBC 4.4 LAB L100.1200 4.6-6.2 M/mm3 Low RBC 3.13 LAB L100.1300 13.0-16.5 g/dl Low HGB 9.4 LAB L100.1400 40-54 % Low HCT 29.2 LAB L100.1500 80-94 fL Normal MCV 93.3 LAB L100.1600 27.0-32.0 pg Normal MCH 30.0 LAB L100.1700 32-36 g/gl Normal MCHC 32.2 LAB L100.1810 11.6-14.6 % High RDW CV 20.1 LAB L100.1820 35.1-43.9 fl High RDW SD 66.5 LAB L100.1900 150-450 K/mm3 Low PLT 120 LAB L100.2000 6.2-12.0 fl High MPV 12.5 LAB L100.2100 47-70 % Normal NEUT% 63.4 LAB L100.2200 19-41 % Normal LY% 33.8 LAB L100.2300 0-10 % Normal MONO% 1.6 LAB L100.2400 0-5 % Normal EO% 0.5 LAB L100.2500 0-1 % Normal BASO% 0.2 LAB L100.2550 0.0-0.9 % Normal IM GRAN % 0.500 Result Comment: IG% - Immature Granulocytes (promyelocytes, myelocytes and metamyelocytes) > 1% indicates that a LEFT SHIFT is Present. LAB L100.2620 2.0-7.7 X10 3/uL Normal Absolute Neut 2.8 LAB L100.2720 0.83-4.51 X10 3/ul Normal Absolute Lymph 1.50 LAB L100.5500 ADEQ Normal PLT EST SLT DEC LAB L100.7000 NORM C AND C NORMAL Normal RED CELL MORPH N CHROM LAB L100.7300 Normal ANISO 1+ Performed By: #### L100.0100 #### [facility] [address] [place], [address] COMPREHENSIVE METABOLIC Collected: 03/05/2018 Status: F Source: [facility] 10:[address] [facility] REPOSITORY TYPE CODE TESTS RESULT OUT OF RANGE REFERENCE UNITS LAB L501.0100 74-106 mg/dL Low GLU 65 Result Comment: Please note revised GLUCOSE reference range effective 2017. LAB L501.1000 7-18 mg/dL Normal BUN 13 LAB L501.1100 0.70-1.30 mg/dL Low CREAT,SERUM 0.42 Result Comment: The validity of the calculated GFR AND GFRAA in patients over 70 years has not been determined. Clinical correlation is essential. LAB L501.1110 >60 mL/min Normal EST GFR 218 Result Comment: Non- GFR Calc LAB L501.1115 >60 mL/min Normal EST GFR - AA 264 Result Comment: GFR Calc LAB L501.1300 10-20 RATIO High BUN/CRE 30.6 LAB L501.1500 6.4-8.2 g/dL Low T PROT 5.6 LAB L501.1800 3.2-5.0 g/dL Low ALB 2.2 LAB L501.1950 2.2-4.2 g/dL Normal GLOB 3.4 LAB L501.2000 0.9-2.4 RATIO Low A/G 0.6 LAB L501.2200 8.5-10.1 mg/dL Low CA 8.1 LAB L501.4100 15-37 U/L High AST 50 LAB L501.4305 45-117 U/L High ALK P 218 LAB L501.4405 16-61 U/L High ALT 94 LAB L501.4600 0.20-1.00 mg/dL T Normal BILI 0.50 LAB L501.5300 136-145 mmol/L NA Normal 140 LAB L501.5600 3.5-5.1 mmol/L K Normal 3.9 LAB L501.5900 98-107 mmol/L CL Normal 106 LAB L501.6100 21.0-32.0 mmol/L Normal CO2 24.0 LAB L501.6200 5-15 Normal GAP 10 Performed By: #### L500.4050, L501.2300, L501.5200, L506.0500 #### [facility] [address] [place], [place], [id number] PHOSPHORUS Collected: 03/05/2018 Status: F Source: [place] 10:[address] [facility] REPOSITORY TYPE CODE TESTS RESULT OUT OF RANGE REFERENCE UNITS LAB L501.2300 2.5-4.9 mg/dL Normal PHOS 4.4 Performed By: #### L500.4050, L501.2300, L501.5200, L506.0500 #### [facility] [address] [place], [place], [address] MAGNESIUM Collected: 03/05/2018 Status: F Source: [place] 10:[address] [facility] REPOSITORY TYPE CODE TESTS RESULT OUT OF RANGE REFERENCE UNITS LAB L501.5200 1.6-2.6 mg/dL Low MG 1.4 Performed By: #### L500.4050, L501.2300, L501.5200, L506.0500 #### [facility] [address] [place], [address] PREALBUMIN Collected: 03/05/2018 Status: F Source: [place] 10:[address] [facility] REPOSITORY TYPE CODE TESTS RESULT OUT OF RANGE REFERENCE UNITS LAB L506.0500 20.0-40.0 mg/dL Normal PREALBUMIN 26.9 Performed By: #### L500.4050, L501.2300, L501.5200, L506.0500 #### [facility] [address] [place], [address] CBC W/DIFF, AUTOMATED Collected: 02/19/2018 Status: F Source: [place] 12:[address] [facility] REPOSITORY TYPE CODE TESTS RESULT OUT OF RANGE REFERENCE UNITS LAB L100.1000 4.4-11.0 K/mm3 Normal WBC 6.0 LAB L100.1200 4.6-6.2 M/mm3 Low RBC 3.19 LAB L100.1300 13.0-16.5 g/dl Low HGB 9.6 LAB L100.1400 40-54 % Low HCT 29.2 LAB L100.1500 80-94 fL Normal MCV 91.5 LAB L100.1600 27.0-32.0 pg Normal MCH 30.1 LAB L100.1700 32-36 g/gl Normal MCHC 32.9 LAB L100.1810 11.6-14.6 % High RDW CV 19.7 LAB L100.1820 35.1-43.9 fl High RDW SD 64.0 LAB L100.1900 150-450 K/mm3 Normal PLT 170 LAB L100.2000 6.2-12.0 fl Normal MPV 11.4 LAB L100.2100 47-70 % Normal NEUT% 55.3 LAB L100.2200 19-41 % Normal LY% 32.0 LAB L100.2300 0-10 % Normal MONO% 9.6 LAB L100.2400 0-5 % Normal EO% 1.3 LAB L100.2500 0-1 % Normal BASO% 0.3 LAB L100.2550 0.0-0.9 % High IM GRAN % 1.500 Result Comment: IG% - Immature Granulocytes (promyelocytes, myelocytes and metamyelocytes) > 1% indicates that a LEFT SHIFT is Present. LAB L100.2620 2.0-7.7 X10 3/uL Absolute Neut Normal 3.3 LAB L100.2720 0.83-4.51 X10 3/ul Absolute Lymph Normal 1.91 LAB L100.5500 ADEQ PLT EST Normal ADEQUATE LAB L100.7500 POLYCHROMASIA Normal 1+ LAB L100.7600 HYPOCHROMASIA Normal 2+ Performed By: #### L100.0100 #### [facility] [address] [place], [address] COMPREHENSIVE METABOLIC Collected: 02/19/2018 Status: F Source: [facility] 12:[address] [facility] REPOSITORY TYPE CODE TESTS RESULT OUT OF RANGE REFERENCE UNITS LAB L501.0100 74-106 mg/dL Low GLU 69 Result Comment: Please note revised GLUCOSE reference range effective 2017. LAB L501.1000 7-18 mg/dL Normal BUN 16 LAB L501.1100 0.70-1.30 mg/dL Low CREAT,SERUM 0.39 Result Comment: The validity of the calculated GFR AND GFRAA in patients over 70 years has not been determined. Clinical correlation is essential. LAB L501.1110 >60 mL/min Normal EST GFR 239 Result Comment: Non- GFR Calc LAB L501.1115 >60 mL/min Normal EST GFR - AA 289 Result Comment: GFR Calc LAB L501.1300 10-20 RATIO High BUN/CRE 40.7 LAB L501.1500 6.4-8.2 g/dL T Normal PROT 6.5 LAB L501.1800 3.2-5.0 g/dL Low ALB 2.1 LAB L501.1950 2.2-4.2 g/dL High GLOB 4.4 LAB L501.2000 0.9-2.4 RATIO Low A/G 0.5 LAB L501.2200 8.5-10.1 mg/dL Low CA 8.0 LAB L501.4100 15-37 U/L High AST 41 LAB L501.4305 45-117 U/L High ALK P 243 LAB L501.4405 16-61 U/L High ALT 85 LAB L501.4600 0.20-1.00 mg/dL T Normal BILI 0.30 LAB L501.5300 136-145 mmol/L NA Normal 140 LAB L501.5600 3.5-5.1 mmol/L K Normal 3.7 LAB L501.5900 98-107 mmol/L CL Normal 105 LAB L501.6100 21.0-32.0 mmol/L Normal CO2 27.0 LAB L501.6200 5-15 Normal GAP 8 Performed By: #### L500.4050, L501.2300, L501.5000, L501.5200, L506.0500 #### [facility] [address] [place], [place], [id number] PHOSPHORUS Collected: 02/19/2018 Status: F Source: [place] 12:[address] [facility] REPOSITORY TYPE CODE TESTS RESULT OUT OF RANGE REFERENCE UNITS LAB L501.2300 2.5-4.9 mg/dL Low PHOS 2.2 Performed By: #### L500.4050, L501.2300, L501.5000, L501.5200, L506.0500 #### [facility] [address] [place], [place], [id number] TRIGLYCERIDES Collected: 02/19/2018 Status: F Source: [place] 12:[address] [facility] REPOSITORY TYPE CODE TESTS RESULT OUT OF RANGE REFERENCE UNITS LAB L501.5000 mg/dL Normal TRIG 76 Result Comment: The drugs N-Acetylcysteine and Metamizole may falsely depress this assay. Serum Triglycerides Reference Interval Normal <150 mg/dL Borderline high 150 - 199 mg/dL High 200 - 499 mg/dL Very High > or = 500 mg/dL Performed By: #### L500.4050, L501.2300, L501.5000, L501.5200, L506.0500 #### [facility] [address] [place], [place], [id number] MAGNESIUM Collected: 02/19/2018 Status: F Source: [place] 12:[address] [facility] REPOSITORY TYPE CODE TESTS RESULT OUT OF RANGE REFERENCE UNITS LAB L501.5200 1.6-2.6 mg/dL Normal MG 1.9 Performed By: #### L500.4050, L501.2300, L501.5000, L501.5200, L506.0500 #### [facility] [address] [facility] [place], [address] PREALBUMIN Collected: 02/19/2018 Status: F Source: [facility] 12:[address] [facility] REPOSITORY TYPE CODE TESTS RESULT OUT OF RANGE REFERENCE UNITS LAB L506.0500 20.0-40.0 mg/dL Normal PREALBUMIN 24.2 Performed By: #### L500.4050, L501.2300, L501.5000, L501.5200, L506.0500 #### [facility] [address] [facility] [place], [place], [address] COMPREHENSIVE METABOLIC Collected: 01/22/2018 Status: F [facility] [facility] REPOSITORY TYPE CODE TESTS RESULT OUT OF RANGE REFERENCE UNITS LAB L501.0100 74-106 mg/dL High GLU 112 Result Comment: Fasting Glucose result from 100 to 125 mg/dL suggests IMPAIRED HOMEOSTASIS per A.D.A. criteria. Please note revised GLUCOSE reference range effective 2017. LAB L501.1000 7-18 mg/dL High BUN 25 LAB L501.1100 0.70-1.30 mg/dL Low CREAT,SERUM 0.68 Result Comment: The validity of the calculated GFR AND GFRAA in patients over 70 years has not been determined. Clinical correlation is essential. LAB L501.1110 >60 mL/min Normal EST GFR 127 Result Comment: Non- GFR Calc LAB L501.1115 >60 mL/min Normal EST GFR - AA 153 Result Comment: GFR Calc LAB L501.1300 10-20 RATIO High BUN/CRE 36.7 LAB L501.1500 6.4-8.2 g/dL Low T PROT 5.7 LAB L501.1800 3.2-5.0 g/dL Low ALB 1.8 LAB L501.1950 2.2-4.2 g/dL Normal GLOB 3.9 LAB L501.2000 0.9-2.4 RATIO Low A/G 0.5 LAB L501.2200 8.5-10.1 mg/dL Low CA 8.1 LAB L501.4100 15-37 U/L Normal AST 23 LAB L501.4305 45-117 U/L High ALK P 189 LAB L501.4405 16-61 U/L Normal ALT 35 LAB L501.4600 0.20-1.00 mg/dL T Normal BILI 0.40 LAB L501.5300 136-145 mmol/L NA Normal 144 LAB L501.5600 3.5-5.1 mmol/L Low K 3.4 LAB L501.5900 98-107 mmol/L High CL 108 LAB L501.6100 21.0-32.0 mmol/L Normal CO2 23.0 LAB L501.6200 5-15 Normal GAP 13 Performed By: #### L500.4050, L501.2300, L501.5000, L501.5200, L506.0500 #### [facility] [address] [facility] [place], [place], [id number] PHOSPHORUS Collected: 01/22/2018 Status: F Source: [place] 11:[address] [facility] REPOSITORY TYPE CODE TESTS RESULT OUT OF RANGE REFERENCE UNITS LAB L501.2300 2.5-4.9 mg/dL Normal PHOS 3.6 Performed By: #### L500.4050, L501.2300, L501.5000, L501.5200, L506.0500 #### [facility] [address] [facility] [place], [place], [id number] TRIGLYCERIDES Collected: 01/22/2018 Status: F Source: [place] 11:[address] [facility] REPOSITORY TYPE CODE TESTS RESULT OUT OF RANGE REFERENCE UNITS LAB L501.5000 mg/dL Normal TRIG 94 Result Comment: The drugs N-Acetylcysteine and Metamizole may falsely depress this assay. Serum Triglycerides Reference Interval Normal <150 mg/dL Borderline high 150 - 199 mg/dL High 200 - 499 mg/dL Very High > or = 500 mg/dL Performed By: #### L500.4050, L501.2300, L501.5000, L501.5200, L506.0500 #### [facility] [address] [facility] [place], [address] MAGNESIUM Collected: 01/22/2018 Status: F Source: [place] 11:[address] [facility] REPOSITORY TYPE CODE TESTS RESULT OUT OF RANGE REFERENCE UNITS LAB L501.5200 1.6-2.6 mg/dL Normal MG 1.6 Performed By: #### L500.4050, L501.2300, L501.5000, L501.5200, L506.0500 #### [facility] [address] [place], [address] PREALBUMIN Collected: 01/22/2018 Status: F Source: [place] 11:[address] [facility] REPOSITORY TYPE CODE TESTS RESULT OUT OF REFERENCE UNITS RANGE LAB L506.0500 20.0-40.0 mg/dL Low PREALBUMIN 7.4 Performed By: #### L500.4050, L501.2300, L501.5000, L501.5200, L506.0500 #### [facility] [address] [place], [address] CBC W/DIFF, AUTOMATED Collected: 01/22/2018 Status: F Source: [place] 11:[address] [facility] REPOSITORY TYPE CODE TESTS RESULT OUT OF RANGE REFERENCE UNITS LAB L100.1000 4.4-11.0 K/mm3 Low WBC 3.9 LAB L100.1200 4.6-6.2 M/mm3 Low RBC 3.97 LAB L100.1300 13.0-16.5 g/dl Low HGB 11.1 LAB L100.1400 40-54 % Low HCT 35.2 LAB L100.1500 80-94 fL Normal MCV 88.7 LAB L100.1600 27.0-32.0 pg Normal MCH 28.0 LAB L100.1700 32-36 g/gl Low MCHC 31.5 LAB L100.1810 11.6-14.6 % High RDW CV 19.5 LAB L100.1820 35.1-43.9 fl High RDW SD 63.7 LAB L100.1900 150-450 K/mm3 Normal PLT 392 LAB L100.2000 6.2-12.0 fl Normal MPV 10.6 LAB L100.2100 47-70 % Low NEUT% 25.6 LAB L100.2200 19-41 % Normal LY% 40.5 LAB L100.2300 0-10 % High MONO% 30.0 LAB L100.2400 0-5 % Normal EO% 2.1 LAB L100.2500 0-1 % Normal BASO% 0.8 LAB L100.2550 0.0-0.9 % High IM GRAN % 1.000 Result Comment: IG% - Immature Granulocytes (promyelocytes, myelocytes and metamyelocytes) > 1% indicates that a LEFT SHIFT is Present. LAB L100.2620 2.0-7.7 X10 3/uL Low Absolute Neut 1.0 LAB L100.2720 0.83-4.51 X10 3/ul Normal Absolute Lymph 1.58 LAB L100.4500 Normal SMEAR COMMENT SCANNED Result Comment: NEUTROPENIA NOTED Performed By: #### L100.0100 #### [facility] [address] [facility] [place], [address] EMERGENCY DEPARTMENT Observed: 01/18/2018 Status: F Source: [place] SUMMARY 3:[address] [facility] REPOSITORY [facility] Medical Records Department [address] [place] [address] Emergency Department Summary 01/18/18 1448 MR#: [id number] Acct: [id number] Name: EVANS NEWELL Tanya Rep #: [id number] : 1960 58 From: Tha Howard MD PCP: Care Physician, No Primary Status: REG ER - ER Visit Summary Date of Service: 01/18/18 Chief Complaint: Arm swelling History of Present Illness: The patient is a 58 M presents to the emergency department with left arm swelling. Patient has a history of pancreatic cancer. He has a PICC line in his left arm. He was actually seen here yesterday with some swelling into the arm. He had an outpatient ultrasound today which shows DVT around the PICC line in the upper extremity. He denies chest pain or shortness of breath. He gets all of his treatment through the cancer [facility] of [facility] in [place]. He initially had treatment through [facility], but was referred for a second opinion there. He was actually admitted in December with bacteremia. At that time, he had his Mediport pulled and his PICC was placed. He is not on anticoagulants. He denies any fevers or chills. Physical Examination: Vital signs reviewed General: Well-nourished, well-developed Head: Normocephalic, atraumatic Eyes: Pupils equal and reactive, extraocular muscles intact Neck, supple, no lymphadenopathy Heart: Regular rate and rhythm Respiratory: No distress, clear bilaterally Abdomen: Soft, nontender, nondistended, no peritoneal signs Back: Nontender Extremities: Asymmetric edema of the left upper extremity, 2+ pulses, no cords Skin: Normal color no rash Neuro: Alert and oriented, no focal or lateralizing deficits Test Results: [] Emergency Department Course and Treatment: [I was able to review the patient's labs from yesterday along with his ultrasound from today. His platelets are normal. I discussed the patient with his oncologist, Dr. Mcgee at the cancer [facility] in [place]. She did recommend starting Eliquis. The patient is dependent on his PICC line for nutrition, so I do feel that pulling it at this time is not appropriate. The patient was given his first dose here. He was written a prescription. He was counseled on side effects and bleeding and when to return to the emergency department. He is comfortable this plan of care will be discharged home. Treatment Plan: [] Disposition: Discharge Impression: Left upper extremity DVT This note was generated with Coveo dictation software. It may contain incorrect words, spelling, and punctuation that were not noted in review of the chart prior to signing ED Disposition - Plan for ED Patient: Chief Complaint: Edema Instructions: ED DVT Prescriptions: Apixaban [Eliquis] 10 mg PO BID #49 tab Referrals: Care Physician,No Primary [Primary Care Provider] - What to do if you have Problems For any increased pain, shortness of breath, bleeding, nausea or vomiting, chest pain, or any unexpected problems, contact your Primary Care Provider. Call [facility] ([phone]) or report to the closest Emergency Room. Call 911 if necessary. 01/18/18 1545 <Electronically signed by Tha Howard MD> Date Tha Howard MD Cosigner Signature (If Indicated): Date CC: No Primary Care Physician VENOUS DUPLEX UPPER Observed: 01/18/2018 Status: F Source: [facility] EXTREMITY 2:[address] [facility] REPOSITORY [facility] Cardiovascular Services [address] [place] [address] Venous Duplex US, Unilateral 01/18/18 1304 MR#: [id number] Acct: [id number] Name: EVANS NEWELL Rep #: [id number] : 1960 58 From: Ad Luna MD Attending Dr: Yohana Rachel MD Status: REG CLI Ordering Dr: Yohana Rachel MD Date: 01/18/18 Location: CVS Sex: M C Admitted: Reason For Study: LUE swelling Left Proximal Left jugular vein is spontaneous, widely patent, phasic, with no intraluminal echogenicity noted. Subclavian, Axillary, Brachial and Basilic veins are dilated and non-compressible with intraluminal echoes and absent color flow/doppler signal. Left Lower Arm Left radial vein is compressible. Left ulnar vein is compressible. Interpretation Summary Acute deep vein thrombosis is noted in the left subclavian vein, axillary vein, and brachial vein. The remainder of the left upper extremity deep venous system is patent. Acute superficial thrombophlebitis is noted in the left basilic vein. The left cephalic vein is patent and compressible. Ordering Physician: Yohana Rachel Referring Physician: Yohana Rachel Performed By: Renee Valdez RVT 01/18/18 1407 Date Ad Luna MD CC: No Primary Care Physician; Yohana Rachel MD Date Dictated: 01/18/18 1304 Date Transcribed: 01/18/18 1407 Airline Lounge Receptionist: Signed EMERGENCY DEPARTMENT Observed: 01/18/2018 Status: F Source: [place] SUMMARY 12:[address] [facility] REPOSITORY [facility] Medical Records Department [address] [place] [address] Emergency Department Summary 01/17/18 1844 MR#: [id number] Acct: [id number] Name: EVANS NEWELL Rep #: [id number] : 1960 58 From: Yohana Rachel MD PCP: Care Physician, No Primary Status: DEP ER - ER Visit Summary Date of Service: 01/17/18 Chief Complaint: Left arm swollen History of Present Illness: The patient is a 58 M with history of pancreatic cancer. He had a PICC line placed in the left upper extremity several months ago at the cancer treatment centers of [facility] in [place]. Line is used nightly for TPN and fluids. He noted his left arm to be swollen over the past 2 days. He has been trying to establish care with Dr. Lozada, but currently does not have a primary care physician locally. He denies chest pain or shortness of breath. Physical Examination: Vital signs are unremarkable. Patient sitting upright in bed no acute distress. Heart is regular rate and rhythm. Lung sounds are clear. Abdomen is soft nontender. Left upper extremity examination was PICC line to be in place. He has 2+ edema to the arm. There is no erythema. Area around the PICC line is nontender. Test Results: CBC was white count 2.9 with 1.2 absolute neutrophils. Hemoglobin 10.6. Chemistry studies normal. Chest x-ray shows no acute process. Left PICC line is in place with the tip at the SVC/atrial junction. Emergency Department Course and Treatment: Patient presented to the ED at a time and I do not have ultrasound available to check his arm. He will be written for an order to come back tomorrow for ultrasound of the left arm. PICC line will be flushed prior to discharge. Treatment Plan: [] Disposition: Discharge Impression: Left arm edema This note was generated with Coveo dictation software. It may contain incorrect words, spelling, and punctuation that were not noted in review of the chart prior to signing ED Disposition - Plan for ED Patient: Chief Complaint: Edema Referrals: Care Physician,No Primary [Primary Care Provider] - What to do if you have Problems For any increased pain, shortness of breath, bleeding, nausea or vomiting, chest pain, or any unexpected problems, contact your Primary Care Provider. Call [facility] ([phone]) or report to the closest Emergency Room. Call 911 if necessary. 01/18/18 0043 <Electronically signed by Yohana Rachel MD> Date Yohana Rachel MD Cosigner Signature (If Indicated): Date CC: No Primary Care Physician DISCHARGE INSTRUCTION Observed: 01/17/2018 Status: F Source: [place] 6:[address] [facility] REPOSITORY [facility] Medical Records Department [address] [place] [address] [place] [address] Discharge Instruction 01/17/181845 MR#: [id number] Acct: [id number] Name: EVANS NEWELL Rep #: [id number] : 1960 58 From: Yohana Rachel MD PCP: Care Physician, No Primary Status: REG ER ED Disposition - Plan for ED Patient: Disposition: Home or Assisted Living Chief Complaint: Edema Referrals: Barron Lozada DO [STAFF PHYSICIAN] - Additional Instructions: You will return tomorrow for an ultrasound of your left arm to ensure no blood clot present. What to do if you have Problems For any increased pain, shortness of breath, bleeding, nausea or vomiting, chest pain, or any unexpected problems, contact your Primary Care Provider. Call [facility] ([phone]) or report to the closest Emergency Room. Call 911 if necessary. 01/17/18 1847 <Electronically signed by Yohana Rachel MD> Date Yohana Rachel MD Cosigner Signature (If Indicated): Date CC: No Primary Care Physician CHEST 1 VIEW Observed: 01/17/2018 Status: F Source: [facility] (PORTABLE) 4:[address] [facility] REPOSITORY [facility] Imaging Services [address] [place] [address] Chest 1 View (Portable) MR#: [id number] Acct: [id number] Name: EVANS NEWELL Rep #: [id number] : 1960 M 58 From: Loyd Wright MD PCP: Care Physician, No Primary Status: REG ER Study: Chest 1 View (Portable) Date of Exam: 01/17/18 Exam# [id number] Ordering Dr: Yohana Rachel MD STUDY: X-RAY CHEST REASON FOR EXAM: Male, 58 years old. Check for placement of PICC line previously existing. Not a new placement. TECHNIQUE: Portable AP upright chest COMPARISON: None. FINDINGS: Left-sided PICC line with tip at SVC atrial junction. The lungs are clear and expanded. Normal cardiomediastinal silhouette, fahad and pleural margins. No acute osseous or upper abdominal process. RAD/Chest 1 View (Portable) IMPRESSION: No acute cardiopulmonary process. Left-sided PICC line with tip at SVC atrial junction. Electronically Signed: Loyd Wright, at 17:58 EDT Tel , Service support , CC: No Primary Care Physician; Yohana Rachel MD Airline Lounge Receptionist: Signed BASIC METABOLIC Collected: 01/17/2018 Status: F Source: [facility] PROFILE (BMP) 4:[address] [facility] REPOSITORY TYPE CODE TESTS RESULT OUT OF RANGE REFERENCE UNITS LAB L501.0100 74-106 mg/dL High GLU 114 Result Comment: Fasting Glucose result from 100 to 125 mg/dL suggests IMPAIRED HOMEOSTASIS per A.D.A. criteria. Please note revised GLUCOSE reference range effective 2017. LAB L501.1000 7-18 mg/dL Normal BUN 18 LAB L501.1100 0.70-1.30 mg/dL Low CREAT,SERUM 0.65 Result Comment: The validity of the calculated GFR AND GFRAA in patients over 70 years has not been determined. Clinical correlation is essential. LAB L501.1110 >60 mL/min Normal EST GFR 134 Result Comment: Non- GFR Calc LAB L501.1115 >60 mL/min Normal EST GFR - AA 162 Result Comment: GFR Calc LAB L501.1255 ml/min Normal Estimated CRCL 150.23 LAB L501.1300 10-20 RATIO High BUN/CRE 27.8 LAB L501.2200 8.5-10 mg/dL Low .1 CA 8.3 LAB L501.5300 136-14 mmol/L 5 NA Normal 139 LAB L501.5600 3.5-5. mmol/L 1 K Normal 3.6 LAB L501.5900 98-107 mmol/L CL Normal 107 LAB L501.6100 21.0-3 mmol/L 2.0 CO2 Normal 21.0 LAB L501.6200 5-15 GAP Normal 11 Performed By: #### L500.2500 #### [facility] [address] [place], [place], [id number] CBC W/DIFF, AUTOMATED Collected: 01/17/2018 Status: C Source: [place] 4:[address] [facility] REPOSITORY TYPE CODE TESTS RESULT OUT OF RANGE REFERENCE UNITS LAB L100.1000 4.4-11.0 K/mm3 Low WBC 2.9 LAB L100.1200 4.6-6.2 M/mm3 Low RBC 3.81 LAB L100.1300 13.0-16.5 g/dl Low HGB 10.6 LAB L100.1400 40-54 % Low HCT 32.8 LAB L100.1500 80-94 fL Normal MCV 86.1 LAB L100.1600 27.0-32.0 pg Normal MCH 27.8 LAB L100.1700 32-36 g/gl Normal MCHC 32.3 LAB L100.1810 11.6-14.6 % High RDW CV 18.7 LAB L100.1820 35.1-43.9 fl High RDW SD 59.2 LAB L100.1900 150-450 K/mm3 Normal PLT 278 LAB L100.2000 6.2-12.0 fl Normal MPV 10.4 LAB L100.2100 47-70 % Low NEUT% 41.9 LAB L100.2200 19-41 % High LY% 52.0 LAB L100.2300 0-10 % Normal MONO% 2.7 LAB L100.2400 0-5 % Normal EO% 3.1 LAB L100.2500 0-1 % Normal BASO% 0.3 LAB L100.2550 0.0-0.9 % Normal IM GRAN % 0.000 Result Comment: IG% - Immature Granulocytes (promyelocytes, myelocytes and metamyelocytes) > 1% indicates that a LEFT SHIFT is Present. LAB L100.2620 2.0-7.7 X10 3/uL Low Absolute Neut 1.2 LAB L100.2720 0.83-4.51 X10 3/ul Normal Absolute Lymph 1.53 LAB L100.4500 SMEAR Normal COMMENT Result Comment: 1+ ANISOCYTOSIS LAB L100.9900 Normal Reviewed PATH REV Result Comment: Leukopenia and neutropenia. Clinical correlation necessary. Willam Carrillo M.D. 01/18/18 AMENDED REPORT 01/18/18 1434 PATH REV previously reported as: September sobia Performed By: #### L100.0100 #### [facility] [address] [place], [address] CBC W/DIFF, AUTOMATED Collected: 01/16/2018 Status: F Source: [place] 12:[address] [facility] REPOSITORY TYPE CODE TESTS RESULT OUT OF RANGE REFERENCE UNITS LAB L100.1000 4.4-11.0 K/mm3 Low WBC 3.3 LAB L100.1200 4.6-6.2 M/mm3 Low RBC 3.26 LAB L100.1300 13.0-16.5 g/dl Low HGB 9.2 LAB L100.1400 40-54 % Low HCT 28.6 LAB L100.1500 80-94 fL Normal MCV 87.7 LAB L100.1600 27.0-32.0 pg Normal MCH 28.2 LAB L100.1700 32-36 g/gl Normal MCHC 32.2 LAB L100.1810 11.6-14.6 % High RDW CV 19.0 LAB L100.1820 35.1-43.9 fl High RDW SD 61.1 LAB L100.1900 150-450 K/mm3 Normal PLT 200 LAB L100.2000 6.2-12.0 fl Normal MPV 11.2 LAB L100.2100 47-70 % Normal NEUT% 55.9 LAB L100.2200 19-41 % Normal LY% 39.6 LAB L100.2300 0-10 % Normal MONO% 2.1 LAB L100.2400 0-5 % Normal EO% 1.8 LAB L100.2500 0-1 % Normal BASO% 0.3 LAB L100.2550 0.0-0.9 % Normal IM GRAN % 0.300 Result Comment: IG% - Immature Granulocytes (promyelocytes, myelocytes and metamyelocytes) > 1% indicates that a LEFT SHIFT is Present. LAB L100.2620 2.0-7.7 X10 3/uL Low Absolute Neut 1.8 LAB L100.2720 0.83-4.51 X10 3/ul Normal Absolute Lymph 1.30 Performed By: #### L100.0100 #### [facility] [address] [place], [place], [id number] PHOSPHORUS Collected: 01/16/2018 Status: F Source: [place] 12:[address] [facility] REPOSITORY TYPE CODE TESTS RESULT OUT OF RANGE REFERENCE UNITS LAB L501.2300 2.5-4.9 mg/dL Normal PHOS 3.1 Performed By: #### L501.2300, L501.5200, L506.0500, L500.4050 #### [facility] [address] [place], [address] MAGNESIUM Collected: 01/16/2018 Status: F Source: [place] 12:[address] [facility] REPOSITORY TYPE CODE TESTS RESULT OUT OF RANGE REFERENCE UNITS LAB L501.5200 1.6-2.6 mg/dL Normal MG 1.6 Performed By: #### L501.2300, L501.5200, L506.0500, L500.4050 #### [facility] [address] [place], [address] PREALBUMIN Collected: 01/16/2018 Status: F Source: [place] 12:[address] [facility] REPOSITORY TYPE CODE TESTS RESULT OUT OF REFERENCE UNITS RANGE LAB L506.0500 20.0-40.0 mg/dL Low PREALBUMIN 15.8 Performed By: #### L501.2300, L501.5200, L506.0500, L500.4050 #### [facility] [address] [place], [address] COMPREHENSIVE METABOLIC Collected: 01/16/2018 Status: F Source: [facility] 12:[address] [facility] REPOSITORY TYPE CODE TESTS RESULT OUT OF RANGE REFERENCE UNITS LAB L501.0100 74-106 mg/dL Normal GLU 97 Result Comment: Please note revised GLUCOSE reference range effective 2017. LAB L501.1000 7-18 mg/dL High BUN 19 LAB L501.1100 0.70-1.30 mg/dL Low CREAT,SERUM 0.50 Result Comment: The validity of the calculated GFR AND GFRAA in patients over 70 years has not been determined. Clinical correlation is essential. LAB L501.1110 >60 mL/min Normal EST GFR 182 Result Comment: Non- GFR Calc LAB L501.1115 >60 mL/min Normal EST GFR - AA 220 Result Comment: GFR Calc LAB L501.1300 10-20 RATIO High BUN/CRE 38.2 LAB L501.1500 6.4-8.2 g/dL Low T PROT 5.6 LAB L501.1800 3.2-5.0 g/dL Low ALB 2.0 LAB L501.1950 2.2-4.2 g/dL Normal GLOB 3.6 LAB L501.2000 0.9-2.4 RATIO Low A/G 0.6 LAB L501.2200 8.5-10.1 mg/dL Low CA 7.5 LAB L501.4100 15-37 U/L Normal AST 27 LAB L501.4305 45-117 U/L High ALK P 189 LAB L501.4405 16-61 U/L High ALT 66 LAB L501.4600 0.20-1.00 mg/dL T Normal BILI 0.50 LAB L501.5300 136-145 mmol/L NA Normal 140 LAB L501.5600 3.5-5.1 mmol/L K Normal 3.7 LAB L501.5900 98-107 mmol/L CL Normal 106 LAB L501.6100 21.0-32.0 mmol/L Normal CO2 24.0 LAB L501.6200 5-15 Normal GAP 10 Performed By: #### L501.2300, L501.5200, L506.0500, L500.4050 #### [facility] [address] [place], [address] COMPREHENSIVE METABOLIC Collected: 01/01/2018 Status: F Source: [facility] 9:[address] [facility] REPOSITORY TYPE CODE TESTS RESULT OUT OF RANGE REFERENCE UNITS LAB L501.0100 74-106 mg/dL High GLU 120 Result Comment: Fasting Glucose result from 100 to 125 mg/dL suggests IMPAIRED HOMEOSTASIS per A.D.A. criteria. Please note revised GLUCOSE reference range effective 2017. LAB L501.1000 7-18 mg/dL High BUN 25 LAB L501.1100 0.70-1.30 mg/dL Low CREAT,SERUM 0.61 Result Comment: The validity of the calculated GFR AND GFRAA in patients over 70 years has not been determined. Clinical correlation is essential. LAB L501.1110 >60 mL/min Normal EST GFR 143 Result Comment: Non- GFR Calc LAB L501.1115 >60 mL/min Normal EST GFR - AA 173 Result Comment: GFR Calc LAB L501.1300 10-20 RATIO High BUN/CRE 40.8 LAB L501.1500 6.4-8.2 g/dL T Normal PROT 6.9 LAB L501.1800 3.2-5.0 g/dL Low ALB 2.3 LAB L501.1950 2.2-4.2 g/dL High GLOB 4.6 LAB L501.2000 0.9-2.4 RATIO Low A/G 0.5 LAB L501.2200 8.5-10.1 mg/dL Low CA 8.1 LAB L501.4100 15-37 U/L High AST 56 LAB L501.4305 45-117 U/L High ALK P 263 LAB L501.4405 16-61 U/L High ALT 94 LAB L501.4600 0.20-1.00 mg/dL T Normal BILI 0.40 LAB L501.5300 136-145 mmol/L NA Normal 143 LAB L501.5600 3.5-5.1 mmol/L K Normal 3.7 LAB L501.5900 98-107 mmol/L CL Normal 106 LAB L501.6100 21.0-32.0 mmol/L Normal CO2 26.0 LAB L501.6200 5-15 Normal GAP 11 Performed By: #### L500.4050, L501.2300, L501.5200, L506.0500 #### [facility] [address] [facility] [place], [place], [id number] PHOSPHORUS Collected: 01/01/2018 Status: F Source: [place] 9:[address] [facility] REPOSITORY TYPE CODE TESTS RESULT OUT OF RANGE REFERENCE UNITS LAB L501.2300 2.5-4.9 mg/dL Normal PHOS 3.0 Performed By: #### L500.4050, L501.2300, L501.5200, L506.0500 #### [facility] [address] [place], [place], [id number] MAGNESIUM Collected: 01/01/2018 Status: F Source: [place] 9:[address] [facility] REPOSITORY TYPE CODE TESTS RESULT OUT OF RANGE REFERENCE UNITS LAB L501.5200 1.6-2.6 mg/dL Normal MG 1.8 Performed By: #### L500.4050, L501.2300, L501.5200, L506.0500 #### [facility] [address] [place], [address] PREALBUMIN Collected: 01/01/2018 Status: F Source: [place] 9:[address] [facility] REPOSITORY TYPE CODE TESTS RESULT OUT OF RANGE REFERENCE UNITS LAB L506.0500 20.0-40.0 mg/dL Normal PREALBUMIN 29.7 Performed By: #### L500.4050, L501.2300, L501.5200, L506.0500 #### [facility] [address] [facility] [place], [address] CBC W/DIFF, AUTOMATED Collected: 01/01/2018 Status: F Source: [place] 9:55 [facility] REPOSITORY TYPE CODE TESTS RESULT OUT OF RANGE REFERENCE UNITS LAB L100.1000 4.4-11.0 K/mm3 Normal WBC 6.2 LAB L100.1200 4.6-6.2 M/mm3 Low RBC 3.49 LAB L100.1300 13.0-16.5 g/dl Low HGB 9.8 LAB L100.1400 40-54 % Low HCT 31.1 LAB L100.1500 80-94 fL Normal MCV 89.1 LAB L100.1600 27.0-32.0 pg Normal MCH 28.1 LAB L100.1700 32-36 g/gl Low MCHC 31.5 LAB L100.1810 11.6-14.6 % High RDW CV 20.3 LAB L100.1820 35.1-43.9 fl High RDW SD 63.3 LAB L100.1900 150-450 K/mm3 Normal PLT 181 LAB L100.2000 6.2-12.0 fl High MPV 12.5 LAB L100.2100 47-70 % Normal NEUT% 67.0 LAB L100.2200 19-41 % Normal LY% 25.0 LAB L100.2300 0-10 % Normal MONO% 2.1 LAB L100.2400 0-5 % Normal EO% 4.9 LAB L100.2500 0-1 % Normal BASO% 0.8 LAB L100.2550 0.0-0.9 % Normal IM GRAN % 0.200 Result Comment: IG% - Immature Granulocytes (promyelocytes, myelocytes and metamyelocytes) > 1% indicates that a LEFT SHIFT is Present. LAB L100.2620 2.0-7.7 X10 3/uL Normal Absolute Neut 4.1 LAB L100.2720 0.83-4.51 X10 3/ul Normal Absolute Lymph 1.54 LAB L100.4500 Normal SMEAR COMMENT COMMENT Result Comment: SLIDE SCANNED - 1+ ANISO. Performed By: #### L100.0100 #### [facility] [address] [place], [place], [id number] CBC-COMPLETE BLOOD CNT Collected: 12/18/2017 Status: F Source: [place] NO DIFF 10:[address] [facility] REPOSITORY TYPE CODE TESTS RESULT OUT OF RANGE REFERENCE UNITS LAB L100.1000 4.4-11.0 K/mm3 Normal WBC 9.4 LAB L100.1200 4.6-6.2 M/mm3 Low RBC 3.36 LAB L100.1300 13.0-16.5 g/dl Low HGB 9.2 LAB L100.1400 40-54 % Low HCT 29.7 LAB L100.1500 80-94 fL Normal MCV 88.4 LAB L100.1600 27.0-32.0 pg Normal MCH 27.4 LAB L100.1700 32-36 g/gl Low MCHC 31.0 LAB L100.1810 11.6-14.6 % High RDW CV 20.6 LAB L100.1820 35.1-43.9 fl High RDW SD 64.1 LAB L100.1900 150-450 K/mm3 Normal PLT 360 LAB L100.2000 6.2-12.0 fl Normal MPV 11.4 Performed By: #### L100.0500, L100.4500 #### [facility] [address] [place], [place], [id number] DIFFERENTIAL COMMENT Collected: 12/18/2017 Status: F Source: [place] 10:[address] [facility] REPOSITORY TYPE CODE TESTS RESULT OUT OF RANGE REFERENCE UNITS LAB L100.4500 Normal SMEAR COMMENT Result Comment: SLIDE SCANNED - 1+ ANISO. Performed By: #### L100.0500, L100.4500 #### [facility] [address] [place], [place], [id number] COMPREHENSIVE METABOLIC Collected: 12/18/2017 Status: F Source: [place] [facility] 10:[address] [facility] REPOSITORY TYPE CODE TESTS RESULT OUT OF RANGE REFERENCE UNITS LAB L501.0100 74-106 mg/dL Normal GLU 79 Result Comment: Please note revised GLUCOSE reference range effective 2017. LAB L501.1000 7-18 mg/dL High BUN 23 LAB L501.1100 0.70-1.30 mg/dL Normal CREAT,SERUM 1.10 Result Comment: The validity of the calculated GFR AND GFRAA in patients over 70 years has not been determined. Clinical correlation is essential. LAB L501.1110 >60 mL/min Normal EST GFR 73 Result Comment: Non- GFR Calc LAB L501.1115 >60 mL/min Normal EST GFR - AA 88 Result Comment: GFR Calc LAB L501.1300 10-20 RATIO High BUN/CRE 20.9 LAB L501.1500 6.4-8.2 g/dL T Normal PROT 7.0 LAB L501.1800 3.2-5.0 g/dL Low ALB 1.5 LAB L501.1950 2.2-4.2 g/dL High GLOB 5.5 LAB L501.2000 0.9-2.4 RATIO Low A/G 0.3 LAB L501.2200 8.5-10.1 mg/dL Low CA 7.7 LAB L501.4100 15-37 U/L High AST 49 LAB L501.4305 45-117 U/L High ALK P 331 LAB L501.4405 16-61 U/L Normal ALT 36 LAB L501.4600 0.20-1.00 mg/dL T Normal BILI 0.40 LAB L501.5300 136-145 mmol/L NA Normal 143 LAB L501.5600 3.5-5.1 mmol/L K Normal 4.2 LAB L501.5900 98-107 mmol/L High CL 108 LAB L501.6100 21.0-32.0 mmol/L Normal CO2 29.0 LAB L501.6200 5-15 Normal GAP 6 Performed By: #### L500.4050, L501.2300, L501.5200 #### [facility] [address] [place], [address] PHOSPHORUS Collected: 12/18/2017 Status: F Source: [place] 10:[address] [facility] REPOSITORY TYPE CODE TESTS RESULT OUT OF RANGE REFERENCE UNITS LAB L501.2300 2.5-4.9 mg/dL Normal PHOS 3.0 Performed By: #### L500.4050, L501.2300, L501.5200 #### [facility] [address] [place], [address] MAGNESIUM Collected: 12/18/2017 Status: F Source: [place] 10:[address] [facility] REPOSITORY TYPE CODE TESTS RESULT OUT OF RANGE REFERENCE UNITS LAB L501.5200 1.6-2.6 mg/dL Normal MG 1.6 Performed By: #### L500.4050, L501.2300, L501.5200 #### [facility] [address] [place], [address] CBC W/DIFF, AUTOMATED Collected: 11/30/2017 Status: F Source: [place] 8:[address] [facility] REPOSITORY TYPE CODE TESTS RESULT OUT OF RANGE REFERENCE UNITS LAB L100.1000 4.4-11.0 K/mm3 Normal WBC 10.0 LAB L100.1200 4.6-6.2 M/mm3 Low RBC 4.21 LAB L100.1300 13.0-16.5 g/dl Low HGB 11.4 LAB L100.1400 40-54 % Low HCT 35.6 LAB L100.1500 80-94 fL Normal MCV 84.6 LAB L100.1600 27.0-32.0 pg Normal MCH 27.1 LAB L100.1700 32-36 g/gl Normal MCHC 32.0 LAB L100.1810 11.6-14.6 % High RDW CV 18.1 LAB L100.1820 35.1-43.9 fl High RDW SD 52.6 LAB L100.1900 150-450 K/mm3 High PLT 550 LAB L100.2000 6.2-12.0 fl Normal MPV 10.1 LAB L100.2100 47-70 % Low NEUT% 36.8 LAB L100.2200 19-41 % Normal LY% 33.7 LAB L100.2300 0-10 % High MONO% 19.3 LAB L100.2400 0-5 % Normal EO% 2.8 LAB L100.2500 0-1 % High BASO% 5.8 LAB L100.2550 0.0-0.9 % High IM GRAN % 1.600 Result Comment: IG% - Immature Granulocytes (promyelocytes, myelocytes and metamyelocytes) > 1% indicates that a LEFT SHIFT is Present. LAB L100.2620 2.0-7.7 X10 3/uL Normal Absolute Neut 3.7 LAB L100.2720 0.83-4.51 X10 3/ul Normal Absolute Lymph 3.38 LAB L100.4500 Normal SMEAR COMMENT COMMENT Result Comment: SLIDE SCANNED - MONOCYTOSIS, BASOPHILIA, RARE ATYPICAL LYMPHS. Performed By: #### L100.0100 #### [facility] [address] [place], [address] COMPREHENSIVE METABOLIC Collected: 11/27/2017 Status: F Source: [facility] 2:[address] [facility] REPOSITORY TYPE CODE TESTS RESULT OUT OF RANGE REFERENCE UNITS LAB L501.0100 74-106 mg/dL High GLU 117 Result Comment: Fasting Glucose result from 100 to 125 mg/dL suggests IMPAIRED HOMEOSTASIS per A.D.A. criteria. Please note revised GLUCOSE reference range effective 2017. LAB L501.1000 7-18 mg/dL Normal BUN 17 LAB L501.1100 0.70-1.30 mg/dL Normal CREAT,SERUM 0.74 Result Comment: The validity of the calculated GFR AND GFRAA in patients over 70 years has not been determined. Clinical correlation is essential. LAB L501.1110 >60 mL/min Normal EST GFR 116 Result Comment: Non- GFR Calc LAB L501.1115 >60 mL/min Normal EST GFR - AA 140 Result Comment: GFR Calc LAB L501.1300 10-20 RATIO High BUN/CRE 23.1 LAB L501.1500 6.4-8.2 g/dL T Normal PROT 6.7 LAB L501.1800 3.2-5.0 g/dL Low ALB 2.0 LAB L501.1950 2.2-4.2 g/dL High GLOB 4.7 LAB L501.2000 0.9-2.4 RATIO Low A/G 0.4 LAB L501.2200 8.5-10.1 mg/dL Low CA 8.3 LAB L501.4100 15-37 U/L Normal AST 23 LAB L501.4305 45-117 U/L High ALK P 191 LAB L501.4405 16-61 U/L Normal ALT 38 LAB L501.4600 0.20-1.00 mg/dL T Normal BILI 0.90 LAB L501.5300 136-145 mmol/L NA Normal 138 LAB L501.5600 3.5-5.1 mmol/L Low K 3.4 LAB L501.5900 98-107 mmol/L CL Normal 102 LAB L501.6100 21.0-32.0 mmol/L Normal CO2 25.0 LAB L501.6200 5-15 Normal GAP 11 Performed By: #### L500.4050, L501.2300, L501.5200, L506.0500 #### [facility] [address] [facility] [place], [place], [address] PHOSPHORUS Collected: 11/27/2017 Status: F Source: [place] 2:[address] [facility] REPOSITORY TYPE CODE TESTS RESULT OUT OF RANGE REFERENCE UNITS LAB L501.2300 2.5-4.9 mg/dL Normal PHOS 2.5 Performed By: #### L500.4050, L501.2300, L501.5200, L506.0500 #### [facility] [address] [facility] [place], [place], [address] MAGNESIUM Collected: 11/27/2017 Status: F Source: [place] 2:[address] [facility] REPOSITORY TYPE CODE TESTS RESULT OUT OF RANGE REFERENCE UNITS LAB L501.5200 1.6-2.6 mg/dL Normal MG 1.7 Performed By: #### L500.4050, L501.2300, L501.5200, L506.0500 #### [facility] [address] [facility] [place], [place], [address] PREALBUMIN Collected: 11/27/2017 Status: F Source: [place] 2:[address] [facility] REPOSITORY TYPE CODE TESTS RESULT OUT OF REFERENCE UNITS RANGE LAB L506.0500 20.0-40.0 mg/dL Low PREALBUMIN 6.6 Performed By: #### L500.4050, L501.2300, L501.5200, L506.0500 #### [facility] [address] [place], [address] CBC W/DIFF, AUTOMATED Collected: 11/27/2017 Status: F Source: [place] 2:[address] [facility] REPOSITORY TYPE CODE TESTS RESULT OUT OF RANGE REFERENCE UNITS LAB L100.1000 4.4-11.0 K/mm3 Low WBC 3.4 LAB L100.1200 4.6-6.2 M/mm3 Low RBC 4.21 LAB L100.1300 13.0-16.5 g/dl Low HGB 11.4 LAB L100.1400 40-54 % Low HCT 35.7 LAB L100.1500 80-94 fL Normal MCV 84.8 LAB L100.1600 27.0-32.0 pg Normal MCH 27.1 LAB L100.1700 32-36 g/gl Low MCHC 31.9 LAB L100.1810 11.6-14.6 % High RDW CV 18.3 LAB L100.1820 35.1-43.9 fl High RDW SD 53.9 LAB L100.1900 150-450 K/mm3 Normal PLT 354 LAB L100.2000 6.2-12.0 fl Normal MPV 10.5 LAB L100.2100 47-70 % Low NEUT% 24.0 LAB L100.2200 19-41 % High LY% 41.2 LAB L100.2300 0-10 % High MONO% 31.2 LAB L100.2400 0-5 % Normal EO% 2.7 LAB L100.2500 0-1 % Normal BASO% 0.9 LAB L100.2550 0.0-0.9 % Normal IM GRAN % 0.000 Result Comment: IG% - Immature Granulocytes (promyelocytes, myelocytes and metamyelocytes) > 1% indicates that a LEFT SHIFT is Present. LAB L100.2620 2.0-7.7 X10 3/uL Low Absolute Neut 0.8 LAB L100.2720 0.83-4.51 X10 3/ul Normal Absolute Lymph 1.39 LAB L100.4500 Normal SMEAR COMMENT SCANNED Result Comment: NEUTROPENIA NOTED Performed By: #### L100.0100 #### [facility] [address] [facility] [place], [address] CBC W/DIFF, AUTOMATED Collected: 11/20/2017 Status: F Source: [place] 2:[address] [facility] REPOSITORY TYPE CODE TESTS RESULT OUT OF RANGE REFERENCE UNITS LAB L100.1000 4.4-11.0 K/mm3 Normal WBC 9.3 LAB L100.1200 4.6-6.2 M/mm3 Low RBC 4.01 LAB L100.1300 13.0-16.5 g/dl Low HGB 11.2 LAB L100.1400 40-54 % Low HCT 35.8 LAB L100.1500 80-94 fL Normal MCV 89.3 LAB L100.1600 27.0-32.0 pg Normal MCH 27.9 LAB L100.1700 32-36 g/gl Low MCHC 31.3 LAB L100.1810 11.6-14.6 % High RDW CV 18.5 LAB L100.1820 35.1-43.9 fl High RDW SD 56.7 LAB L100.1900 150-450 K/mm3 High PLT 504 LAB L100.2000 6.2-12.0 fl Normal MPV 10.4 LAB L100.2100 47-70 % High NEUT% 76.3 LAB L100.2200 19-41 % Normal LY% 20.8 LAB L100.2300 0-10 % Normal MONO% 0.3 LAB L100.2400 0-5 % Normal EO% 2.5 LAB L100.2500 0-1 % Normal BASO% 0.0 LAB L100.2550 0.0-0.9 % Normal IM GRAN % 0.100 Result Comment: IG% - Immature Granulocytes (promyelocytes, myelocytes and metamyelocytes) > 1% indicates that a LEFT SHIFT is Present. LAB L100.2620 2.0-7.7 X10 3/uL Normal Absolute Neut 7.1 LAB L100.2720 0.83-4.51 X10 3/ul Normal Absolute Lymph 1.93 Performed By: #### L100.0100 #### [facility] [address] [place], [address] COMPREHENSIVE METABOLIC Collected: 11/20/2017 Status: F Source: [facility] 2:[address] [facility] REPOSITORY TYPE CODE TESTS RESULT OUT OF RANGE REFERENCE UNITS LAB L501.0100 74-106 mg/dL Normal GLU 89 Result Comment: Please note revised GLUCOSE reference range effective 2017. LAB L501.1000 7-18 mg/dL Normal BUN 13 LAB L501.1100 0.70-1.30 mg/dL Low CREAT,SERUM 0.57 Result Comment: The validity of the calculated GFR AND GFRAA in patients over 70 years has not been determined. Clinical correlation is essential. LAB L501.1110 >60 mL/min Normal EST GFR 156 Result Comment: Non- GFR Calc LAB L501.1115 >60 mL/min Normal EST GFR - AA 188 Result Comment: GFR Calc LAB L501.1300 10-20 RATIO High BUN/CRE 22.8 LAB L501.1500 6.4-8.2 g/dL T Normal PROT 6.4 LAB L501.1800 3.2-5.0 g/dL Low ALB 2.2 LAB L501.1950 2.2-4.2 g/dL Normal GLOB 4.2 LAB L501.2000 0.9-2.4 RATIO Low A/G 0.5 LAB L501.2200 8.5-10.1 mg/dL Low CA 8.1 LAB L501.4100 15-37 U/L High AST 96 LAB L501.4305 45-117 U/L High ALK P 230 LAB L501.4405 16-61 U/L High ALT 84 LAB L501.4600 0.20-1.00 mg/dL T Normal BILI 0.50 LAB L501.5300 136-145 mmol/L NA Normal 141 LAB L501.5600 3.5-5.1 mmol/L K Normal 4.1 LAB L501.5900 98-107 mmol/L CL Normal 105 LAB L501.6100 21.0-32.0 mmol/L Normal CO2 28.0 LAB L501.6200 5-15 Normal GAP 8 Performed By: #### L500.4050, L501.2300, L501.5000, L501.5200, L506.0500 #### [facility] [address] [place], [address] PHOSPHORUS Collected: 11/20/2017 Status: F Source: [place] 2:[address] [facility] REPOSITORY TYPE CODE TESTS RESULT OUT OF RANGE REFERENCE UNITS LAB L501.2300 2.5-4.9 mg/dL Normal PHOS 4.3 Performed By: #### L500.4050, L501.2300, L501.5000, L501.5200, L506.0500 #### [facility] [address] [place], [address] TRIGLYCERIDES Collected: 11/20/2017 Status: F Source: [place] 2:[address] [facility] REPOSITORY TYPE CODE TESTS RESULT OUT OF RANGE REFERENCE UNITS LAB L501.5000 mg/dL Normal TRIG 130 Result Comment: The drugs N-Acetylcysteine and Metamizole may falsely depress this assay. Serum Triglycerides Reference Interval Normal <150 mg/dL Borderline high 150 - 199 mg/dL High 200 - 499 mg/dL Very High > or = 500 mg/dL Performed By: #### L500.4050, L501.2300, L501.5000, L501.5200, L506.0500 #### [facility] [address] [place], [place], [address] MAGNESIUM Collected: 11/20/2017 Status: F Source: [place] 2:[address] [facility] REPOSITORY TYPE CODE TESTS RESULT OUT OF RANGE REFERENCE UNITS LAB L501.5200 1.6-2.6 mg/dL Normal MG 2.1 Performed By: #### L500.4050, L501.2300, L501.5000, L501.5200, L506.0500 #### [facility] [address] [place], [place], [id number] PREALBUMIN Collected: 11/20/2017 Status: F Source: [place] 2:[address] [facility] REPOSITORY TYPE CODE TESTS RESULT OUT OF REFERENCE UNITS RANGE LAB L506.0500 20.0-40.0 mg/dL Low PREALBUMIN 19.3 Performed By: #### L500.4050, L501.2300, L501.5000, L501.5200, L506.0500 #### [facility] [place], [address] ED NOTE Observed: 11/10/2017 Status: COMPLETED Source: [place] 7:45 AM [facility] REPOSITORY HNO ID: [id number] Author: Dulce Maria Cronin (Rn) NICKI Smith Service: (none) Author Type: Registered Nurse Type: ED Notes Filed: 11/10/2017 7:48 AM Note Text: Patient informed: the name of medication, why we are giving it, possible side effects, what they may expect to feel, and was offered a chance to ask questions, prior to the administration of zofran. ED NOTE Observed: 11/10/2017 Status: COMPLETED Source: [place] 6:30 AM [facility] REPOSITORY HNO ID: [id number] Author: Jammie SamsonRn) NICKI Marvin Service: Emergency Medicine Author Type: Registered Nurse Type: ED Notes Filed: 11/10/2017 6:30 AM Note Text: Patient informed: the name of medication, why we are giving it, possible side effects, what they may expect to feel, and was offered a chance to ask questions, prior to the administration of zofran HEMOGRAM/DIFF Collected: 11/10/2017 Status: P Source: [facility] 6[facility] AM [facility] TYPE CODE TESTS RESULT OUT OF REFERENCE UNITS RANGE LAB LWBC(LOINC) 4.8-10.8 thou/cmm High WBC 15.7 LAB LRBC(LOINC) 4.60-6.20 mil/cmm Low RBC 3.89 LAB LHGB(LOINC) 14.0-18.0 g/dL Low Hgb 10.9 LAB LHCT(LOINC) 42.0-52.0 % Low Hct 34.0 LAB LMCV(LOINC) 80.0-94.0 fl MCV 87.4 LAB LMCH(LOINC) 27.0-31.0 pg MCH 28.0 LAB LMCHC(LOINC 32.0-36.0 % ) MCHC 32.1 LAB LRDW(LOINC) 11.5-15.9 % High RDW 18.6 LAB LPLT(LOINC) 150-400 thou/cmm High Platelet 659 LAB LMPV(LOINC) 7.1-10.5 fl MPV 10.1 Performed By: #### LCBCD #### [facility] [address] [place] [id number] HEMOGRAM/MANUAL DIFF Collected: 11/10/2017 Status: F Source: [place] 6:28 AM [facility] REPOSITORY TYPE CODE TESTS RESULT OUT OF REFERENCE UNITS RANGE LAB LWBC(LOINC 4.8-10.8 thou/cmm ) WBC High 15.7 LAB LRBC(LOINC 4.60-6.20 mil/cmm ) RBC Low 3.89 LAB LHGB(LOINC 14.0-18.0 g/dL ) Hgb Low 10.9 LAB LHCT(LOINC 42.0-52.0 % ) Hct Low 34.0 LAB LMCV(LOINC 80.0-94.0 fl ) MCV 87.4 LAB LMCH(LOINC 27.0-31.0 pg ) MCH 28.0 LAB LMCHC(LOIN 32.0-36.0 % C) MCHC 32.1 LAB LRDW(LOINC 11.5-15.9 % ) RDW High 18.6 LAB LPLT(LOINC 150-400 thou/cmm ) Platelet High 659 LAB LMPV(LOINC 7.1-10.5 fl ) MPV 10.1 LAB LDTYP(LOIN C) Diff Type Manual Diff LAB LSEGT(LOIN % C) Seg Neutrophil 80.0 LAB LLYMP(LOIN % C) Lymphocyte 9.0 LAB LMNO(LOINC % ) Monocyte 5.0 LAB JUDY(LOINC % ) Eosinophil 2.0 LAB LBASO(LOIN % C) Basophil 0.0 LAB LATYP(LOIN % C) Atypical Lymph 3.0 LAB LMETA(LOIN % C) Metamyelocytes 1.0 LAB LSEGN(LOIN 3.00-5.67 thou/cmm C) Abs. Neut (ANC) High 12.72 LAB LLYMN(LOIN 1.50-3.65 thou/cmm C) Abs. Lymph 1.88 LAB LMONN(LOIN 0.20-1.00 thou/cmm C) Abs. Limestone 0.79 LAB LEOSN(LOIN 0.00-0.41 thou/cmm C) Abs. Eosin 0.31 LAB LBASN(LOIN 0.00-0.08 thou/cmm C) Abs. Baso 0.00 LAB LPLES(LOIN C) Platelet Estimate High LAB LTOXC(LOIN C) Toxic Granulation Few LAB LANIS(LOIN C) Anisocytosis Slight LAB LPOLY(LOIN C) Polychromasia Few Performed By: #### L[facility]BD #### [place] [id number] COMPREHENSIVE PANEL Collected: 11/10/2017 Status: F Source: [facility] 6:28 AM [facility] REPOSITORY TYPE CODE TESTS RESULT OUT OF REFERENCE UNITS RANGE LAB ELECTRIC KNIFE OPERATOR(LOINC) 136-145 mEq/L Low Sodium Blood 135 LAB LK(LOINC) 3.5-5.1 mEq/L Potassium Blood 3.7 LAB LCL(LOINC) 98-107 mEq/L Chloride Blood 101 LAB LCO2(LOINC 21-32 mEq/L ) CO2 Blood 28 LAB LGLU(LOINC 70-99 mg/dL ) Glucose High Blood 107 LAB LBUN(LOINC 7-25 mg/dL ) BUN Blood 9 LAB LCREA(LOIN 0.67-1.17 mg/dL C) Low Creatinine Blood 0.60 LAB LCA(LOINC) 8.5-10.1 mg/dL Low Calcium Blood 8.4 LAB LALB(LOINC 3.4-5.0 g/dL ) Low Albumin Blood 2.0 LAB LTP(LOINC) 6.4-8.2 g/dL Total Protein 6.6 LAB LAST(LOINC 15-37 U/L ) AST-SGOT High Blood 39 LAB LALT(LOINC 14-63 U/L ) ALT-SGPT Blood 31 LAB LALKP(LOIN 46-116 U/L C) Alk High Phosphatase 318 LAB LBILT(LOIN 0.2-1.0 mg/dL C) Total Bilirubin 0.8 LAB LANGP(LOIN 8-20 C) Anion Gap 10 LAB LBNCR(LOIN 10-20 C) BUN/Creatinine 15 Ratio Performed By: #### [id number] #### [address] [address] LIPASE BLOOD Collected: 11/10/2017 Status: F Source: [facility] 6:28 AM HEALTH SYSTEM REPOSITORY TYPE CODE TESTS RESULT OUT OF REFERENCE UNITS RANGE LAB LLIP(LOINC) 73-393 U/L Lipase Blood 118 Performed By: #### LLIP #### [facility] [address] [place], [place] [address] MDRD EGFR Collected: 11/10/2017 Status: F Source: [facility] 6:28 AM HEALTH SYSTEM REPOSITORY TYPE CODE TESTS RESULT OUT OF RANGE REFERENCE UNITS LAB LGFRF(LOINC >60mL/min/1.73m ) 2 eGFR >60 Result Comment: If the patient is , multiply the result by 1.210. Performed By: #### LGFR #### [facility] [address] [place], [place] [address] ED PROV NOTE Observed: 11/10/2017 Status: COMPLETED Source: [place] 6:26 AM [facility] REPOSITORY HNO ID: [id number] Author: Danny De La Rosa DO Service: Emergency Medicine Author Type: Physician Type: ED Provider Notes Filed: 11/10/2017 7:40 AM Note Text: ED Provider Note Patient Name: Evans Newell SERVICE DATE: 11/10/17 History Patient presents with: Nausea AND Vomiting Patient presents nausea and vomiting that became worse today. Patient states he is unable to keep anything down. Patient denies any hematemesis or coffee-ground emesis. Patient denies any diarrhea. Patient admits to some constipation. Patient denies any fevers or chills. Patient denies any chest pain or shortness of breath. Patient denies any urinary complaints. PAST MEDICAL HISTORY Diagnosis Date - Cancer (HCC) - History of gallstones - HTN (hypertension) - Pancreatic pseudocyst 05/16/2017 - Pancreatitis - Psychiatric disorder anxiety PAST SURGICAL HISTORY Procedure Laterality Date - ANESTHESIA TOTAL HIP ARTHROPLASTY Left 1996 - CHOLECYSTECTOMY 08/24/2017 - EGD 05/2017, 07/2017 - KNEE SCOPE,DIAGNOSTIC Right 02/02/16 Arthroscopy, knee - ORTHOPEDICS SURGERY HX FAMILY HISTORY Problem Relation Age of Onset - Diabetes Father - cardiac [OTHER] Father 82 - liver transplant [OTHER] Mother Hep C after transfusion Social History Social History Main Topics - Smoking status: Never Smoker - Smokeless tobacco: Never Used - Alcohol use 1.5 oz/week 1 Glasses of Wine (5oz) per week - Drug use: No - Sexual activity: Not on file ALLERGIES No Known Allergies Review of Systems Constitutional: Negative for chills and fever. HENT: Negative for sore throat and trouble swallowing. Eyes: Negative for pain. Respiratory: Negative for cough and shortness of breath. Cardiovascular: Negative for chest pain and palpitations. Gastrointestinal: Positive for abdominal pain, constipation, nausea and vomiting. Genitourinary: Negative for dysuria and hematuria. Musculoskeletal: Negative for back pain and neck pain. Neurological: Negative for weakness and numbness. Physical Exam BP 124/72 Pulse 94 Temp (Src) 98.2 (Temporal Artery) Resp 20 Ht 6' 4 (1.93m) Wt 228 lb (103.4kg) SpO2 96% BMI 27.76 kg/(m2). Physical Exam Constitutional: He is oriented to person, place, and time. He appears well-developed and well-nourished. HENT: Head: Normocephalic and atraumatic. Eyes: EOM are normal. Neck: Normal range of motion. Neck supple. No JVD present. Cardiovascular: Normal rate, regular rhythm and normal heart sounds. Pulmonary/Chest: Effort normal and breath sounds normal. No respiratory distress. Abdominal: Soft. Bowel sounds are normal. There is tenderness in the right upper quadrant, epigastric area and left upper quadrant. There is no rebound and no guarding. Musculoskeletal: Normal range of motion. Neurological: He is alert and oriented to person, place, and time. No cranial nerve deficit. Skin: Skin is warm and dry. Psychiatric: He has a normal mood and affect. His behavior is normal. Nursing note and vitals reviewed. Diagnostic Testing ED Labs Ordered and Reviewed COMPREHENSIVE METABOLIC PANEL (AK,AV,EU,FV,HL,OMEGA,MM,SP) - Abnormal; Notable for the following: Result Value Ref Range Sodium 135 (*) 136 - 145 mEq/L Glucose 107 (*) 70 - 99 mg/dL Creatinine 0.60 (*) 0.67 - 1.17 mg/dL Calcium 8.4 (*) 8.5 - 10.1 mg/dL Albumin 2.0 (*) 3.4 - 5.0 g/dL AST 39 (*) 15 - 37 U/L Alkaline Phosphatase 318 (*) 46 - 116 U/L All other components within normal limits CBC + AUTO DIFF (AK,AV,EU,FV,HL,OMEGA,MM,SP) - Abnormal; Notable for the following: WBC 15.7 (*) 4.8 - 10.8 thou/cmm RBC 3.89 (*) 4.60 - 6.20 mil/cmm HGB 10.9 (*) 14.0 - 18.0 g/dL Hematocrit 34.0 (*) 42.0 - 52.0 % RDW 18.6 (*) 11.5 - 15.9 % Platelet Count 659 (*) 150 - 400 thou/cmm Abs. Neut(Anc) 12.72 (*) 3.00 - 5.67 thou/cmm All other components within normal limits LIPASE BLOOD (AK,AV,EU,FV,HL,OMEGA,MM,SP) MDRD GFR Procedures Medical Decision Making MDM Patient was given IV fluids and Zofran here. CBC showed a mild leukocytosis of 15.7. This is likely due to the vomiting. Comprehensive metabolic profile, and lipase were obtained and were essentially within normal limits. Patient still felt nauseated but has not vomited here in the emergency department. Patient was given repeat doses Zofran. Patient states he has Zofran and Phenergan at home. Patient was instructed to start with sips of fluids and advance as tolerated. Patient was instructed to follow-up with his primary care physician in 3-5 days. Patient understood and was agreeable with the plan. All questions were answered. ED Course / Clinical Impression Clinical Impressions as of Nov 11 739 Non-intractable vomiting with nausea, unspecified vomiting type Plan The patient was DISCHARGED: Counseled patient and spouse regarding lab results AND suspected diagnosis AND need for follow-up. Discharged home with verbal and written instructions. They were instructed to return as needed for persistent or worsening symptoms or any new concerns. Condition at time of disposition: stable SIGNATURE: DO Danny Diaz DO 11/10/17 0740 CNOVSP Observed: 11/06/2017 Status: COMPLETED Source: [place] 11:00 AM [facility] REPOSITORY Visit (SP) Office (PALMED) ULYSSESEVANS ROLLINS ([id number]) 1960 Date Time Provider Department 11/06/17 11:00 AM JERO MAE) [place] During your visit today, we recorded the following information about you: Dorothy Ramsay LPN, LPN 11/06/2017 10:35 AM Signed Reviewed and confirmed with patient that there were no changes in the the nursing assessment and vitals that were completed on November 06, 2017 during previous provider appointment. JUAN JOSE Phoenix MD 11/06/2017 11:35 AM Signed PALLIATIVE MEDICINE PROGRESS NOTE SERVICE DATE: 11/06/2017 SERVICE TIME: 11:24 AM Primary Site of Disease/Medical Illness: Pancreas Site of Metastasis: Peritoneal CHIEF COMPLAINT: neoplastic malignant fatigue, moderate protein calorie malnutrition, thrush, depressed/anxious mood PERTINENT MEDICAL HISTORY: 57-year-old male with pancreatic adenocarcinoma diagnosed 09/19/17. Started gemcitabine and Abraxane 10/06/17, with dose reduction subsequently due to nausea and vomiting. Switching to clinical trial therapy ? No significant medical comorbidities. 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 ? Followed by palliative medicine since 10/20/17 with cancer related nausea/vomiting, poor appetite, and constipation due to medications. HISTORY OF PRESENT ILLNESS: Nausea is little bit better with the Zofran and Zyprexa [id number]-uugnh and Phenergan as needed. Bowels are regular with use of senna. Still with very poor appetite though. Trying nutritional shakes. Ongoing thrush. Ongoing anxiety about his health. Take clonazepam twice daily for this. Notes severe fatigue through the day. Sleeping well at night. Mild drowsiness and occasional naps during the day. Most of the time sedentary. Spends some time outdoors. Modified ESAS ([place] Symptom Assessment Scale):Information Provided By: Patient Pain: None Nausea: Mild Loss of Appetite: Severe Constipation: Mild Shortness of Breath: None Drowsiness: Mild Tiredness: Severe Depression: Moderate Anxiety: Moderate How you feel overall: Poor Other problem: N/A Palliative Performance Scale % (PPS): 30-50 (2.5) Oral Intake: Moderately reduced (> mouthfuls) (1.0) Edema: Absent (0) Dyspnea at Rest: Absent (0) Delirium: Absent (0) Palliative Prognostic Index (PPI) Total Score: 2.5-4 Note: The scores from each prognostic domain are added. A score of 0 to 2.0 was associated with a median survival of 90 days; score of 2.1 to 4.0 is 61 days, and score of >4.0 is 12 days. PHYSICAL EXAMINATION: Vital signs: There were no vitals taken for this visit. General Appearance: No apparent distress Skin: No rash Eyes: Normal HENT: Thrush present Neck: Grossly normal Lungs: Unlabored CV: Not examined Abdomen: Nondistended : Not examined Musculoskeletal: No gross deformity Lymphatics: Not examined Neuro: Delirium absent DATA: Diagnostic tests reviewed for today's visit: Most recent labs and imaging results. ASSESSMENT AND PLAN: 57-year-old male with pancreatic adenocarcinoma diagnosed September 2017 followed by palliative medicine since 10/20/17 with cancer related nausea/vomiting, moderate protein calorie malnutrition and poor appetite, neoplastic malignant fatigue, neoplasm related abdominal pain, constipation due to medications, thrush, dysgeusia, and depressed/anxious mood. ~Start Ritalin 5-10 mg twice daily for fatigue ~Start Remeron 15 mg qhs for depressed/anxious mood ~Wrote script for Nutritional Shake supplements ~Start Nystatin s/s QID for thrush. Single dose Diflucan also. ~Continue Klonopin, but try 0.5-1 mg TID for anxiety. Offered [facility] Psychology referral but patient notes he talks to his father who is a psychologist ~Continue Oxycodone 5-10 mg q6 hr prn pain ~Continue Zofran 8 mg 3 times daily??on a scheduled basis ~Continue Zyprexa 5 mg at bedtime with 2.5 mg in morning and midday??on a scheduled basis ~Use Phenergan 25 mg PO/AZ up to every 6 hours as needed for nausea ~Continue Protonix 40 mg twice daily and Carafate 10 mL 4 times daily for GERD ~Continue senna +/- Miralax for constipation Advance Care Planning: I did not discuss Advance Care Planning at this visit, I plan to discuss this at a future visit. Next Visit: 4 Weeks SIGNATURE: Jero Mae MD PATIENT NAME: Evans Newell DATE: November 06, 2017 TIME: 10:39 AM PAGER/CONTACT #: Jero Mae MD 11/06/2017 11:09 AM Signed ? Start Ritalin 5?10 milligrams twice daily in the morning and midday for fatigue ? Take 1 dose of Diflucan 200 mg for thrush ? Start nystatin swish and swallow 5 mL 4 times daily for thrush ? Start Remeron 15 mg at bedtime for mood and appetite ? Continue Klonopin at 0.5?1 mg 3 times daily as needed for anxiety ? Continue Zofran 8 mg 3 times daily for nausea ? Continue Zyprexa 2.5 mg in the morning and midday and 5 mg at bedtime for nausea ? Continue Phenergan 25 mg up to every 6 hours as needed for nausea ? Continue senna 1?4 tablets twice daily for constipation ? Continue oxycodone 5?10 milligrams up to every 6 hours as needed for pain ? Continue Carafate 4 times daily and Protonix twice daily Referring Provider: JERO MAE () [[id number]] Allergies As of Date: 11/06/2017 (No Known Allergies) Date Reviewed: 11/06/2017 Reviewed by: Dorota (Rn) NICKI Muir - Fully Assessed Primary Visit Diagnosis:Neoplastic (malignant) related fatigue [R53.0] Other Visit Diagnoses:Depressed mood [F32.9] Thrush [B37.0] Pancreatic adenocarcinoma (HCC) [C25.9] Poor appetite [R63.0] Nausea [R11.0] Cancer associated pain [G89.3] Gastroesophageal reflux disease, esophagitis presence not specified [K21.9] Drug-induced constipation [K59.03] Pancreatic insufficiency [K86.89] Anxiety about health [F41.8] Moderate protein-calorie malnutrition (HCC) [E44.0] Encounter for palliative care [Z51.5] Order(s):nystatin (MYCOSTATIN) 100,000 unit/mL suspensionTake 5 mL by mouth four times daily.Disp: 600 mLRfl: 2 fluconazole (DIFLUCAN) 200 mg tabletTake 1 tablet by mouth one time only for 1 dose.Disp: 1 tabletRfl: 0 methylphenidate (RITALIN) 5 mg tabletTake 5-10 mg twice daily (morning and midday) for fatigueDisp: 120 tabletRfl: 0 mirtazapine (REMERON) 15 mg tabletTake 1 tablet by mouth daily at bedtime.Disp: 30 tabletRfl: 2 sucralfate (CARAFATE) 100 mg/mL suspensionTake 10 mL by mouth four times daily.Disp: 1200 mLRfl: 2 clonazePAM (KLONOPIN) 1 mg tabletTake 0.5-1 tablets by mouth three times daily as needed for Anxiety for up to 90 days.Disp: 90 tabletRfl: 2 oxyCODONE IR (ROXICODONE) 5 mg immediate release tabletTake 1 tablet by mouth every 6 hours as needed for Pain for up to 30 days.Disp: 120 tabletRfl: 0 ammobn-eecibxpd-qppgkch (CREON) 24,000-76,000 -120,000 unit cpDRTake 3 capsules by mouth three times daily with meals.Disp: 270 capsuleRfl: 2 Nutritional Supplements (OPTIMENTAL) liqdTake 237 mL by mouth three times daily with meals. 350 Faisal with 20 gm protein per 8 oz servingDisp: 90 BottleRfl: 2 Disposition: Return in about 4 weeks (around 12/04/2017) for On same day as other [facility] appointments. Follow-up and Disposition History Recorded Prescriptions as of 11/06/2017 Sig: NYSTATIN 100,000 UNIT/ML ORAL* Take 5 mL by mouth four times* FLUCONAZOLE 200 MG TABLET Take 1 tablet by mouth one ti* METHYLPHENIDATE 5 MG TABLET Take 5-10 mg twice daily (mor* MIRTAZAPINE 15 MG TABLET Take 1 tablet by mouth daily * SUCRALFATE 100 MG/ML ORAL HOLLAND* Take 10 mL by mouth four time* CLONAZEPAM 1 MG TABLET Take 0.5-1 tablets by mouth t* OXYCODONE 5 MG TABLET Take 1 tablet by mouth every * ZHMJSM-AFGOGFBY-ENZACTW 24,00* Take 3 capsules by mouth thre* NUTRITIONAL SUPPLEMENTS ORAL * Take 237 mL by mouth three ti* ONDANSETRON 8 MG DISINTEGRATI* Take 1 tablet by mouth three * OLANZAPINE 2.5 MG TABLET 1 tab in morning and midday, * SENNOSIDES 8.6 MG TABLET Take 1-4 tablets by mouth twi* PROMETHAZINE 25 MG TABLET Take 1 tablet by mouth every * PROMETHAZINE 25 MG RECTAL SUP* 1 Suppository by RECTAL route* PANTOPRAZOLE 40 MG TABLET,DEL* Take 1 tablet by mouth twice * DEXAMETHASONE 4 MG TABLET Take one tab with an early br* AMLODIPINE 10 MG TABLET Take 1 tablet by mouth once d* ACETAMINOPHEN 325 MG TABLET Take 2 tablets by mouth every* Patient taking differently: Take 650 mg by mouth every 6 * Problem List As Of Date 11/06/2017 Noted Resolved Loose body in knee, right knee [M23.41] INVALID FOR* Benign essential hypertension [I10] INVALID FOR* Obesity [E66.9] INVALID FOR* Tear of lateral meniscus of right knee [S83.281*INVALID FOR* Primary osteoarthritis of right knee [M17.11] INVALID FOR* Pancreatic pseudocyst [K86.3] INVALID FOR* WILVER (generalized anxiety disorder) [F41.1] INVALID FOR* Gallstones [K80.20] INVALID FOR*08/24/2017 More... Pancreatitis [K85.90] INVALID FOR*08/24/2017 More... Pancreatitis [K85.90] INVALID FOR* Malnutrition of moderate degree (HCC) [E44.0] INVALID FOR* Obesity, Class I, BMI 30-34.9 E66.9 [E66.9] INVALID FOR* Nicotine use disorder, F17.2 [F17.200] INVALID FOR* Pancreatic adenoma [D13.6] INVALID FOR*09/22/2017 Pancreatic adenocarcinoma (HCC) [C25.9] INVALID FOR* Admission for fitting of port-a-cath [Z45.2] INVALID FOR* More... Other instructions from your clinician: ? Start Ritalin 5?10 milligrams twice daily in the morning and midday for fatigue ? Take 1 dose of Diflucan 200 mg for thrush ? Start nystatin swish and swallow 5 mL 4 times daily for thrush ? Start Remeron 15 mg at bedtime for mood and appetite ? Continue Klonopin at 0.5?1 mg 3 times daily as needed for anxiety ? Continue Zofran 8 mg 3 times daily for nausea ? Continue Zyprexa 2.5 mg in the morning and midday and 5 mg at bedtime for nausea ? Continue Phenergan 25 mg up to every 6 hours as needed for nausea ? Continue senna 1?4 tablets twice daily for constipation ? Continue oxycodone 5?10 milligrams up to every 6 hours as needed for pain ? Continue Carafate 4 times daily and Protonix twice daily Visit Notes: >> Dorothy (Juan Jose) JUAN JOSE Ramsay Mon Nov 06, 2017 10:35 AM Status: Signed Reviewed and confirmed with patient that there were no changes in the the nursing assessment and vitals that were completed on November 06, 2017 during previous provider appointment. Dorothy Ramsay LPN Encounter Status:Closed by JERO MAE MD on 11/06/17 PROGRESS Observed: 11/06/2017 Status: COMPLETED Source: [place] 10:39 AM [facility] [place] REPOSITORY HNO ID: [id number] Author: Jero Cruz) Juan Carlos Service: (none) Author Type: Physician Type: Progress Notes Filed: 11/06/2017 11:35 AM Note Text: PALLIATIVE MEDICINE PROGRESS NOTE SERVICE DATE: 11/06/2017 SERVICE TIME: 11:24 AM Primary Site of Disease/Medical Illness: Pancreas Site of Metastasis: Peritoneal CHIEF COMPLAINT: neoplastic malignant fatigue, moderate protein calorie malnutrition, thrush, depressed/anxious mood PERTINENT MEDICAL HISTORY: 57-year-old male with pancreatic adenocarcinoma diagnosed 09/19/17. Started gemcitabine and Abraxane 10/06/17, with dose reduction subsequently due to nausea and vomiting. Switching to clinical trial therapy ? No significant medical comorbidities. 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 ? Followed by palliative medicine since 10/20/17 with cancer related nausea/vomiting, poor appetite, and constipation due to medications. HISTORY OF PRESENT ILLNESS: Nausea is little bit better with the Zofran and Zyprexa mfnnwc-wrp-meqod and Phenergan as needed. Bowels are regular with use of senna. Still with very poor appetite though. Trying nutritional shakes. Ongoing thrush. Ongoing anxiety about his health. Take clonazepam twice daily for this. Notes severe fatigue through the day. Sleeping well at night. Mild drowsiness and occasional naps during the day. Most of the time sedentary. Spends some time outdoors. Modified ESAS ([place] Symptom Assessment Scale):Information Provided By: Patient Pain: None Nausea: Mild Loss of Appetite: Severe Constipation: Mild Shortness of Breath: None Drowsiness: Mild Tiredness: Severe Depression: Moderate Anxiety: Moderate How you feel overall: Poor Other problem: N/A Palliative Performance Scale % (PPS): 30-50 (2.5) Oral Intake: Moderately reduced (> mouthfuls) (1.0) Edema: Absent (0) Dyspnea at Rest: Absent (0) Delirium: Absent (0) Palliative Prognostic Index (PPI) Total Score: 2.5-4 Note: The scores from each prognostic domain are added. A score of 0 to 2.0 was associated with a median survival of 90 days; score of 2.1 to 4.0 is 61 days, and score of >4.0 is 12 days. PHYSICAL EXAMINATION: Vital signs: There were no vitals taken for this visit. General Appearance: No apparent distress Skin: No rash Eyes: Normal HENT: Thrush present Neck: Grossly normal Lungs: Unlabored CV: Not examined Abdomen: Nondistended : Not examined Musculoskeletal: No gross deformity Lymphatics: Not examined Neuro: Delirium absent DATA: Diagnostic tests reviewed for today's visit: Most recent labs and imaging results. ASSESSMENT AND PLAN: 57-year-old male with pancreatic adenocarcinoma diagnosed September 2017 followed by palliative medicine since 10/20/17 with cancer related nausea/vomiting, moderate protein calorie malnutrition and poor appetite, neoplastic malignant fatigue, neoplasm related abdominal pain, constipation due to medications, thrush, dysgeusia, and depressed/anxious mood. ~Start Ritalin 5-10 mg twice daily for fatigue ~Start Remeron 15 mg qhs for depressed/anxious mood ~Wrote script for Nutritional Shake supplements ~Start Nystatin s/s QID for thrush. Single dose Diflucan also. ~Continue Klonopin, but try 0.5-1 mg TID for anxiety. Offered [facility] Psychology referral but patient notes he talks to his father who is a psychologist ~Continue Oxycodone 5-10 mg q6 hr prn pain ~Continue Zofran 8 mg 3 times daily??on a scheduled basis ~Continue Zyprexa 5 mg at bedtime with 2.5 mg in morning and midday??on a scheduled basis ~Use Phenergan 25 mg PO/AZ up to every 6 hours as needed for nausea ~Continue Protonix 40 mg twice daily and Carafate 10 mL 4 times daily for GERD ~Continue senna +/- Miralax for constipation Advance Care Planning: I did not discuss Advance Care Planning at this visit, I plan to discuss this at a future visit. Next Visit: 4 Weeks SIGNATURE: Jero Mae MD PATIENT NAME: Evans Newell DATE: November 06, 2017 TIME: 10:39 AM PAGER/CONTACT #: PROGRESS Observed: 11/06/2017 Status: COMPLETED Source: [place] 8:44 AM [facility] REPOSITORY HNO ID: [id number] Author: Rocio Fermin Service: (none) Author Type: Physician Type: Progress Notes Filed: 11/06/2017 9:11 AM Note Text: CC: Follow-up visit for pancreatic adenocarcinoma. HPI: Mr. Newell has the following relevant history: ? Starting December 2016, symptoms of abdominal pain. ? May 2017: Diagnosis of gallstone pancreatitis with pancreatic pseudocysts. EGD guided cystogastrostomy was performed because of pyloric narrowing from the pseudocyst. ? Jul 2017: Cystogastrostomy stent removed. ? Aug 24, 2017: Laparoscopic cholecystectomy. Final pathology showed chronic cholecystitis. ? Had postcholecystectomy pancreatitis, evaluation for which revealed a pancreatic tail lesion as well. ? September 19, 2017: EUS-guided FNA of pancreatic lesion confirmed adenocarcinoma. ? Reviewed at our multidisciplinary PancreatoBiliary Tumor Board: Consensus for upfront chemotherapy followed by attempt at resection, with the caveat that the cystogastrostomy may have led to cancer spillage. ? October 06, 2017: Started gemcitabine/nab-paclitaxel. However, clinical deterioration led to an early scan that showed progressive disease with antonino liver and peritoneal metastases. PMH: No remarkable comorbidities. Medicines, allergies reviewed, as noted. 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 They have 3 children. FH: Sister had breast cancer. ROS: Some improvement in symptoms with interventions from Palliative Medicine. ECOG PS is 1. A complete ROS is otherwise negative. On Exam: Blood pressure 118/70, pulse 95, temperature 37.2 ?C (98.9 ?F), temperature source Oral, resp. rate 20, weight 103.8 kg (228 lb 12.8 oz). In no distress. Weight markedly lower. No pallor, icterus, or edema. No palpable lymphadenopathy. Abd: Non-tender. No organomegaly or free fluid. Psych: Normal affect. Studies: Reviewed images. Impression and Recommendations: Pancreatic adenocarcinoma. Discussed further management with him and his family in detail: ? Discussed further options for now metastatic disease - supportive care, second-line chemotherapy with 5-FU/nalIRI or FOLFOX, or clinical trial (nivolumab + CCR2/5 inhibitor). ? He is interested in the study - will consent and screen. -Rocio Fermin MD, MPH GI Section, Medical Oncology. ABS GRAN CT + CBC Collected: 11/06/2017 Status: F Source: [place] 8:23 AM [facility] REPOSITORY TYPE CODE TESTS RESULT OUT OF REFERENCE UNITS RANGE LAB WBC 3.70-11.00 k/uL WBC High 18.52 LAB RBC 4.20-6.00 m/uL Low RBC 3.84 LAB HGB 13.0-17.0 g/dL Low Hemoglobin 10.8 LAB HCT 39.0-51.0 % Low Hematocrit 32.9 LAB MCV 80.0-100.0 fL MCV 85.7 LAB MCH 26.0-34.0 pG MCH 28.1 LAB MCHC 30.5-36.0 g/dL MCHC 32.8 LAB RDWCV 11.5-15.0 % RDW-CV High 18.5 LAB PLTCT 150-400 k/uL Platelet High Count 626 LAB MPV 9.0-12.7 fL MPV 10.1 LAB ABGRAN 1.45-7.50 k/uL Absol High Gran Count 14.57 LAB ABSNUC <0.01 k/uL Absolute High nRBC 0.02 Performed By: #### AGCCBC, CMP #### [facility] [address] [id number] COMP METABOLIC PANEL Collected: 11/06/2017 Status: F Source: [place] 8:23 AM [facility] REPOSITORY TYPE CODE TESTS RESULT OUT OF REFERENCE UNITS RANGE LAB TP 6.3-8.0 g/dL Low Protein, Total 5.9 LAB ALB 3.9-4.9 g/dL Low Albumin 2.5 LAB CA 8.5-10.2 mg/dL Low Calcium, Total 8.4 LAB TBIL 0.2-1.3 mg/dL Bilirubin, Total 0.8 LAB ALKP 36-108 U/L Alkaline High Phosphatase 338 LAB AST 14-40 U/L AST 38 LAB GLU 74-99 mg/dL Glucose High 162 Result Comment: The [place] Diabetes Association (ADA) provides guidance for cutoff values for fasting glucose and random glucose. The ADA defines fasting as no caloric intake for at least 8 hours. Fas ting plasma glucose results between 100 to 125 mg/dL indicate increased risk for diabetes (prediabetes). Fasting plasma glucose results greater than or equal to 126 mg/dL meet the criteria for diagnosis of diabetes. In the absence of unequivocal hyperglycemia, results should be confirmed by repeat testing. In a patient with classic symptoms of hyperglycemia or hyperglycemic crisis, random plasma glucose results greater than or equal to 200 mg/dL meet the criteria for diagnosis of diabetes. Reference: Standards of Medical Care in Diabetes 2016, [place] Diabetes Association. Diabetes Care. 2016.39(Suppl 1). LAB BUN 9-24 mg/dL BUN 9 LAB CRET 0.73-1.22 mg/dL Creatinine Low 0.65 LAB NA 136-144 mmol/L Sodium 137 LAB K 3.7-5.1 mmol/L Potassium 3.9 LAB CL 97-105 mmol/L Chloride 102 LAB CO2 22-30 mmol/L CO2 23 LAB AGAP 9-18 mmol/L Anion Gap 12 LAB ALT 10-54 U/L ALT 40 LAB GFRAA eGFR- Amer. >60 LAB GFRNAA . eGFR-All Other Races >60 Result Comment: eGFR (Estimated GFR) Units of measure: mL/min/1.73 meters squared eGFR is derived from the reexpressed MDRD Study equation using the following parameters: serum creatinine, age, gender and race. The creatinine assay has been calibrated to be traceable to IDMS. An eGFR <60 mL/min/1.73m2 for >3 months is consistent with chronic kidney disease. Refer to KDOQI guidelines for clinical interpretation. In patients with unstable renal function, e.g. those with acute kidney injury, the eGFR may not accurately reflect actual GFR. Performed By: #### AGCCBC, CMP #### [facility] [address] [id number] CNOVSP Observed: 11/06/2017 Status: COMPLETED Source: [place] 8:00 AM [facility] REPOSITORY Visit (SP) Office ([facility]) EVANS NEWELL ([id number]) 1960 M Date Time Provider Department 11/06/17 8:00 AM ROCIO FERMINCAGabby During your visit today, we recorded the following information about you: Temperature Pulse Respiration Blood pressure 98.9 degrees 95/minute 20/minute 118/70 Weight 103.8 kg Dorota Muir RN, RN 11/06/2017 8:30 AM Signed Additional intake questions: Has the patient had nausea, vomiting, diarrhea, constipation, fatigue for > 1 week? Nausea, Yes, MD Notified Fatigue, Yes, MD Notified Constipation, Yes, MD Notified Does the patient have a decreased appetite? Yes Does patient want to see a Regulatory Internship? No (yes to any of above refer patient to schedulers for dietitian appointment) ) Does patient have any new or increased numbness or tingling of extremities? No Is patient interested in fertility information? No Does patient need any prescription refills? Yes, LIP notified Electronically Signed By: NICKI Ruff MD 11/06/2017 9:11 AM Signed CC: Follow-up visit for pancreatic adenocarcinoma. HPI: Mr. Newell has the following relevant history: ? Starting December 2016, symptoms of abdominal pain. ? May 2017: Diagnosis of gallstone pancreatitis with pancreatic pseudocysts. EGD guided cystogastrostomy was performed because of pyloric narrowing from the pseudocyst. ? Jul 2017: Cystogastrostomy stent removed. ? Aug 24, 2017: Laparoscopic cholecystectomy. Final pathology showed chronic cholecystitis. ? Had postcholecystectomy pancreatitis, evaluation for which revealed a pancreatic tail lesion as well. ? September 19, 2017: EUS-guided FNA of pancreatic lesion confirmed adenocarcinoma. ? Reviewed at our multidisciplinary PancreatoBiliary Tumor Board: Consensus for upfront chemotherapy followed by attempt at resection, with the caveat that the cystogastrostomy may have led to cancer spillage. ? October 06, 2017: Started gemcitabine/nab-paclitaxel. However, clinical deterioration led to an early scan that showed progressive disease with antonino liver and peritoneal metastases. PMH: No remarkable comorbidities. Medicines, allergies reviewed, as noted. 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 They have 3 children. FH: Sister had breast cancer. ROS: Some improvement in symptoms with interventions from Palliative Medicine. ECOG PS is 1. A complete ROS is otherwise negative. On Exam: Blood pressure 118/70, pulse 95, temperature 37.2 ?C (98.9 ?F), temperature source Oral, resp. rate 20, weight 103.8 kg (228 lb 12.8 oz). In no distress. Weight markedly lower. No pallor, icterus, or edema. No palpable lymphadenopathy. Abd: Non-tender. No organomegaly or free fluid. Psych: Normal affect. Studies: Reviewed images. Impression and Recommendations: Pancreatic adenocarcinoma. Discussed further management with him and his family in detail: ? Discussed further options for now metastatic disease - supportive care, second-line chemotherapy with 5-FU/nalIRI or FOLFOX, or clinical trial (nivolumab + CCR2/5 inhibitor). ? He is interested in the study - will consent and screen. -Rocio Fermin MD, MPH GI Section, Medical Oncology. Referring Provider: ROCIO FERMIN [[id number]] Allergies As of Date: 11/06/2017 (No Known Allergies) Date Reviewed: 11/06/2017 Reviewed by: Dorota (Rn) NICKI Muir - Fully Assessed Reason for Visit: Established Patient [175] Primary Visit Diagnosis:Pancreatic adenocarcinoma (HCC) [C25.9] Prescriptions as of 11/06/2017 Sig: ONDANSETRON 8 MG DISINTEGRATI* Take 1 tablet by mouth three * OLANZAPINE 2.5 MG TABLET 1 tab in morning and midday, * SENNOSIDES 8.6 MG TABLET Take 1-4 tablets by mouth twi* PROMETHAZINE 25 MG TABLET Take 1 tablet by mouth every * PROMETHAZINE 25 MG RECTAL SUP* 1 Suppository by RECTAL route* OXYCODONE 5 MG TABLET Take 1-2 tablets by mouth fahad* PANTOPRAZOLE 40 MG TABLET,DEL* Take 1 tablet by mouth twice * CLONAZEPAM 1 MG TABLET Take 1 tablet by mouth twice * DEXAMETHASONE 4 MG TABLET Take one tab with an early br* OXYCODONE 5 MG TABLET Take 1 tablet by mouth every * AMLODIPINE 10 MG TABLET Take 1 tablet by mouth once d* ICYHFD-IBICLMRJ-JJKSAES 24,00* Take 3 capsules by mouth thre* ACETAMINOPHEN 325 MG TABLET Take 2 tablets by mouth every* Patient taking differently: Take 650 mg by mouth every 6 * Problem List As Of Date 11/06/2017 Noted Resolved Loose body in knee, right knee [M23.41] INVALID FOR* Benign essential hypertension [I10] INVALID FOR* Obesity [E66.9] INVALID FOR* Tear of lateral meniscus of right knee [S83.281*INVALID FOR* Primary osteoarthritis of right knee [M17.11] INVALID FOR* Pancreatic pseudocyst [K86.3] INVALID FOR* WILVER (generalized anxiety disorder) [F41.1] INVALID FOR* Gallstones [K80.20] INVALID FOR*08/24/2017 More... Pancreatitis [K85.90] INVALID FOR*08/24/2017 More... Pancreatitis [K85.90] INVALID FOR* Malnutrition of moderate degree (HCC) [E44.0] INVALID FOR* Obesity, Class I, BMI 30-34.9 E66.9 [E66.9] INVALID FOR* Nicotine use disorder, F17.2 [F17.200] INVALID FOR* Pancreatic adenoma [D13.6] INVALID FOR*09/22/2017 Pancreatic adenocarcinoma (HCC) [C25.9] INVALID FOR* Admission for fitting of port-a-cath [Z45.2] INVALID FOR* More... Visit Notes: >> Dorota Muir RN Mon Nov 06, 2017 8:30 AM Status: Signed Additional intake questions: Has the patient had nausea, vomiting, diarrhea, constipation, fatigue for > 1 week? Nausea, Yes, MD Notified Fatigue, Yes, MD Notified Constipation, Yes, MD Notified Does the patient have a decreased appetite? Yes Does patient want to see a Regulatory Internship? No (yes to any of above refer patient to schedulers for dietitian appointment) ) Does patient have any new or increased numbness or tingling of extremities? No Is patient interested in fertility information? No Does patient need any prescription refills? Yes, LIP notified NURSING PROG Observed: 11/03/2017 Status: COMPLETED Source: [place] 12:00 PM [facility] OTHER [facility]AMP[facility] REPOSITORY HNO ID: [id number] Author: Judi JonasSaw Estrella RN Service: Radiology Author Type: Registered Nurse Type: Nursing Progress Note Filed: 11/03/2017 12:05 PM Note Text: Two attempts were made by 2 different nurses to access port. Unable to get blood return with access, pt states that has been a problem in the past. 's office was called to be made aware of this issue. Pt made aware MD office was contacted. NURSING PROG Observed: 11/03/2017 Status: COMPLETED Source: [place] 11:59 AM [facility] OTHER CAMPUS REPOSITORY HNO ID: [id number] Author: Judi (Rn) NICKI Estrella Service: Radiology Author Type: Registered Nurse Type: Nursing Progress Note Filed: 11/03/2017 12:00 PM Note Text: Radiology Service Progress Note PATIENT NAME: Evans Newell DATE OF SERVICE: November 03, 2017 TIME: 11:59 AM PATIENT IDENTITY VERIFICATION COMPLETED USING TWO (2) METHODS: Patient confirmed name verbally and ID band matches.. PATIENT GENDER DATA: Male CONTRAST INDUCED NEPHROPATHY RISK FACTORS: Not applicable CREATININE: Creatinine Date Value Ref Range Status 10/20/2017 0.60 (L) 0.73 - 1.22 mg/dL Final 10/13/2017 0.62 (L) 0.73 - 1.22 mg/dL Final 10/06/2017 0.58 (L) 0.73 - 1.22 mg/dL Final eGFR-All Other Races Date Value Ref Range Status 10/20/2017 >60 . Final Comment: eGFR (Estimated GFR) Units of measure: mL/min/1.73 meters squared eGFR is derived from the reexpressed MDRD Study equation using the following parameters: serum creatinine, age, gender and race. The creatinine assay has been calibrated to be traceable to IDMS. An eGFR <60 mL/min/1.73m2 for >3 months is consistent with chronic kidney disease. Refer to KDOQI guidelines for clinical interpretation. In patients with unstable renal function, e.g. those with acute kidney injury, the eGFR may not accurately reflect actual GFR. eGFR- Date Value Ref Range Status 10/20/2017 >60 Final P.O.C.T. RESULTS: N/A November 03, 2017 TREATMENT: No Hydration needed. ALLERGIES: Reviewed and unchanged CONTRAST ALLERGY: NO. IV SITE: Ambulatory: A peripheral IV was started in the Left hand with a Angio cath: 20 gauge. IV SITE APPEARANCE: Clean,Dry and Intact SIGNED BY: Judi Estrella RN November 03, 2017 11:59 AM Nursing Progress Note Patient Name: Evans Newell Patient Location: Room/bed info not found This note was completed by: Judi Estrella RN CT CHEST W IVCON Observed: 11/03/2017 Status: F Source: [place] 11:59 AM CLIN[facility] OTHER CAMPUS REPOSITORY * * *Final Report* * * DATE OF EXAM: Nov 03 2017 11:59AM [facility] [place] 0539 - CT CHEST W IVCON / PROCEDURE REASON: multiple diagnoses * * * * Physician Interpretation * * * * EXAMINATION: CT CHEST WITH IV CONTRAST and CT ABDOMEN AND PELVIS WITH IV CONTRAST CLINICAL HISTORY: Nausea Malignant neoplasm of pancreas, unspecified TECHNIQUE: CT of the chest from the thoracic inlet to the upper abdomen was performed following IV contrast. CT of the abdomen and pelvis was performed using standard technique, scanning from just above the dome of the diaphragm to the symphysis pubis. MQ: CTCAPW_4 Contrast: IV: 150 ml of Omnipaque 300 Oral: 900 ml of 50ML Omnipaque [address] Radiation dose: Integrated Dose-length product (DLP) for this visit = 763 mGy*cm. CT Dose Reduction Employed: No dose reduction techniques were required COMPARISON: Abdominal CT of 05/16/2017 and 07/08/2017 RESULT: Limitations: None. Chest: Lines, tubes, and devices: Port via the right side with tip in the proximal SVC. Lung parenchyma and pleura: 4 mm pleural-based lateral left lower lobe nodule (4:120) Thoracic inlet, heart, and mediastinum: No lymphadenopathy in the axillary, mediastinal, or hilar regions. The thoracic aorta and main pulmonary artery are normal in caliber. The cardiac chambers are normal in size. No coronary artery atherosclerotic calcifications are noted, although the study is not optimized for coronary assessment. Trace pericardial effusion. Abdomen / Pelvis: Liver: 7 cm new surface based anterior left lobe focal lesion (2:51). Density is 19hu. This can be consistent with cystic lesion with complicated fluid with slightly thick wall. Proteinaceous/hemorrhagic pseudocyst is a possibility but metastatic disease cannot be excluded. Subcapsular low density along the left medial aspect of the left lobe for example (2:36 and also adjacent to the caudate lobe for example (2:43). This is slightly more prominent as compared to previous and could represent subcapsular proteinaceous/hemorrhagic fluid. 4 cm left lobe hypodensity (2:33), not previously seen. This could be part of the superficial fluid collections. Possibility of hepatic metastasis is not excluded. 1.6 cm slightly hyperdense right lobe lesion (2:42), not previously seen. Could be an area of sparing in the midst of steatosis but a focal lesion is not excluded. Asymmetric hepatic steatosis. Biliary: No bile duct dilation. Cholecystectomy Spleen: Stable small hypodensity (2:44). No splenomegaly. Pancreas: 3.6 x 3.5 cm hypodense pancreatic body masslike area (2:51). Previously measured 3.6 x 3.2 cm. Accurate size comparison Limited due to differences in sectioning. Superiorly this area contiguous with the stomach wall (2:47).. Focal area of soft tissue/complicated fluid nodularity along the anterior aspect of the mass (2:53) is new.. There is increasing fluid density adjacent to the pancreatic tail and in the region of the splenic hilum (2:60). Adrenals: No mass. Kidneys: Bilateral renal cysts. Parapelvic left renal cysts. GI tract: No dilation or wall thickening. Lymph nodes: Stable small pelvic nodes for example right external iliac (2:145). Mesentery/Peritoneum: 7 cm focal collection adjacent to the stomach (2:56), larger as compared to previous and density compatible with proteinaceous/hemorrhagic fluid. Haziness in the root of the mesentery not significantly changed. Scattered small mesenteric nodes throughout the mesentery. Few peritoneal nodules for example anterior to the liver, 1.1 cm (2:57), adjacent to the stomach left upper abdomen, 1.3 cm (2:47). Both of these are not previously seen. A surface serosal low-density lesion in the García's pouch measuring 1.9 cm (2:55) new since 05/16/2017 and larger since 07/08/2017. Possible miniscule pelvic fluid for example right side (2:138). Retroperitoneum: No mass. 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 Pelvis: Left portion of the pelvis partly obscured due to streak artifact from left hip hardware. No significant abnormality of the visualized portion of the urinary bladder. Bones/Soft Tissues: 0.6 cm hypodensity in the upper/mid dorsal vertebra (4:64). Small hypodensity lower dorsal vertebra (4:156). IMPRESSION: CHEST: No abnormal sized lymph nodes. 4 mm pleural-based nodularity left lung. 2 small hypodense areas in the thoracic vertebrae, nonspecific/indeterminate. Might consider nuclear scan assessment/close follow-up to exclude early metastatic involvement. ABDOMEN AND PELVIS: 3.6 cm masslike area in the pancreatic body, not grossly changed given the differences in technique. This may be the known primary pancreatic malignancy although by CT this is indistinguishable from focal pancreatitis. New complicated fluid density area anterior to the left lobe of the liver and enlarging area adjacent to the stomach. There is also soft tissue hypodensity at the interface of the left lobe of the liver and the stomach as well as surrounding the caudate lobe. These may be due to hemorrhagic/proteinaceous fluid containing pseudocysts related to pancreatitis. Please correlate with history of bout of pancreatitis since the previous CT or previous intervention. Possibility of these representing peritoneal based metastatic disease not excluded. 3 discrete peritoneal lesions. Cannot exclude peritoneal carcinomatosis. Lesion secondary to pancreatitis remain in the differential diagnosis. 4 cm hypodensity left lobe of the liver not previously seen and in some areas contiguous with the subserosal hypodensity adjacent to the medial surface of the left lobe of the liver. Could be fluid collection secondary to pancreatitis but hepatic metastasis is not excluded. Asymmetric hepatic steatosis. Slightly hyperdense right lobe liver lesion not previously seen could be an area of focal sparing but hepatic metastasis is not excluded. Airline Lounge Receptionist: ROSLYN Transcribe Date/Time: Nov 03 2017 6:18P Dictated by : SUNDAR HERNANDEZ MD This examination was interpreted and the report reviewed and electronically signed by: SUNDAR HERNANDEZ MD on Nov 03 2017 7:12PM EST [id number] CT ABD/PEL W IVCON Observed: 11/03/2017 Status: F Source: [place] 11:59 AM CLINIC OTHER CAMPUS REPOSITORY * * *Final Report* * * DATE OF EXAM: Nov 03 2017 11:59AM [facility] [place] 0530 - CT ABD/PEL W IVCON / PROCEDURE REASON: multiple diagnoses * * * * Physician Interpretation * * * * EXAMINATION: CT CHEST WITH IV CONTRAST and CT ABDOMEN AND PELVIS WITH IV CONTRAST CLINICAL HISTORY: Nausea Malignant neoplasm of pancreas, unspecified TECHNIQUE: CT of the chest from the thoracic inlet to the upper abdomen was performed following IV contrast. CT of the abdomen and pelvis was performed using standard technique, scanning from just above the dome of the diaphragm to the symphysis pubis. MQ: CTCAPW_4 Contrast: IV: 150 ml of Omnipaque 300 Oral: 900 ml of 50ML Omnipaque [address] Radiation dose: Integrated Dose-length product (DLP) for this visit = 763 mGy*cm. CT Dose Reduction Employed: No dose reduction techniques were required COMPARISON: Abdominal CT of 05/16/2017 and 07/08/2017 RESULT: Limitations: None. Chest: Lines, tubes, and devices: Port via the right side with tip in the proximal SVC. Lung parenchyma and pleura: 4 mm pleural-based lateral left lower lobe nodule (4:120) Thoracic inlet, heart, and mediastinum: No lymphadenopathy in the axillary, mediastinal, or hilar regions. The thoracic aorta and main pulmonary artery are normal in caliber. The cardiac chambers are normal in size. No coronary artery atherosclerotic calcifications are noted, although the study is not optimized for coronary assessment. Trace pericardial effusion. Abdomen / Pelvis: Liver: 7 cm new surface based anterior left lobe focal lesion (2:51). Density is 19hu. This can be consistent with cystic lesion with complicated fluid with slightly thick wall. Proteinaceous/hemorrhagic pseudocyst is a possibility but metastatic disease cannot be excluded. Subcapsular low density along the left medial aspect of the left lobe for example (2:36 and also adjacent to the caudate lobe for example (2:43). This is slightly more prominent as compared to previous and could represent subcapsular proteinaceous/hemorrhagic fluid. 4 cm left lobe hypodensity (2:33), not previously seen. This could be part of the superficial fluid collections. Possibility of hepatic metastasis is not excluded. 1.6 cm slightly hyperdense right lobe lesion (2:42), not previously seen. Could be an area of sparing in the midst of steatosis but a focal lesion is not excluded. Asymmetric hepatic steatosis. Biliary: No bile duct dilation. Cholecystectomy Spleen: Stable small hypodensity (2:44). No splenomegaly. Pancreas: 3.6 x 3.5 cm hypodense pancreatic body masslike area (2:51). Previously measured 3.6 x 3.2 cm. Accurate size comparison Limited due to differences in sectioning. Superiorly this area contiguous with the stomach wall (2:47).. Focal area of soft tissue/complicated fluid nodularity along the anterior aspect of the mass (2:53) is new.. There is increasing fluid density adjacent to the pancreatic tail and in the region of the splenic hilum (2:60). Adrenals: No mass. Kidneys: Bilateral renal cysts. Parapelvic left renal cysts. GI tract: No dilation or wall thickening. Lymph nodes: Stable small pelvic nodes for example right external iliac (2:145). Mesentery/Peritoneum: 7 cm focal collection adjacent to the stomach (2:56), larger as compared to previous and density compatible with proteinaceous/hemorrhagic fluid. Haziness in the root of the mesentery not significantly changed. Scattered small mesenteric nodes throughout the mesentery. Few peritoneal nodules for example anterior to the liver, 1.1 cm (2:57), adjacent to the stomach left upper abdomen, 1.3 cm (2:47). Both of these are not previously seen. A surface serosal low-density lesion in the García's pouch measuring 1.9 cm (2:55) new since 05/16/2017 and larger since 07/08/2017. Possible miniscule pelvic fluid for example right side (2:138). Retroperitoneum: No mass. 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 Pelvis: Left portion of the pelvis partly obscured due to streak artifact from left hip hardware. No significant abnormality of the visualized portion of the urinary bladder. Bones/Soft Tissues: 0.6 cm hypodensity in the upper/mid dorsal vertebra (4:64). Small hypodensity lower dorsal vertebra (4:156). IMPRESSION: CHEST: No abnormal sized lymph nodes. 4 mm pleural-based nodularity left lung. 2 small hypodense areas in the thoracic vertebrae, nonspecific/indeterminate. Might consider nuclear scan assessment/close follow-up to exclude early metastatic involvement. ABDOMEN AND PELVIS: 3.6 cm masslike area in the pancreatic body, not grossly changed given the differences in technique. This may be the known primary pancreatic malignancy although by CT this is indistinguishable from focal pancreatitis. New complicated fluid density area anterior to the left lobe of the liver and enlarging area adjacent to the stomach. There is also soft tissue hypodensity at the interface of the left lobe of the liver and the stomach as well as surrounding the caudate lobe. These may be due to hemorrhagic/proteinaceous fluid containing pseudocysts related to pancreatitis. Please correlate with history of bout of pancreatitis since the previous CT or previous intervention. Possibility of these representing peritoneal based metastatic disease not excluded. 3 discrete peritoneal lesions. Cannot exclude peritoneal carcinomatosis. Lesion secondary to pancreatitis remain in the differential diagnosis. 4 cm hypodensity left lobe of the liver not previously seen and in some areas contiguous with the subserosal hypodensity adjacent to the medial surface of the left lobe of the liver. Could be fluid collection secondary to pancreatitis but hepatic metastasis is not excluded. Asymmetric hepatic steatosis. Slightly hyperdense right lobe liver lesion not previously seen could be an area of focal sparing but hepatic metastasis is not excluded. Airline Lounge Receptionist: ROSLYN Transcribe Date/Time: Nov 03 2017 6:18P Dictated by : SUNDAR HERNANDEZ MD This examination was interpreted and the report reviewed and electronically signed by: SUNDAR HERNANDEZ MD on Nov 03 2017 7:12PM EST [id number] Observed: 10/20/2017 Status: COMPLETED Source: [place] 10:55 AM [facility] REPOSITORY HNO ID: [id number] Author: Jero Mae Service: (none) Author Type: Physician Type: Progress Notes Filed: 10/20/2017 4:44 PM Note Text: PALLIATIVE MEDICINE INITIAL CONSULT SERVICE DATE: 10/20/2017 SERVICE TIME: 12:05 PM Referring Physician: Rocio Fermin Primary Physician: Yohana Dolan MD REASON FOR CONSULT: Symptom control (specify symptom): nausea HISTORY OF PRESENT ILLNESS: Evans Newell is a 57-year-old male with pancreatic adenocarcinoma diagnosed 09/19/17. Started gemcitabine and Abraxane 10/06/17, with dose reduction subsequently due to nausea and vomiting. No significant medical comorbidities. 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 Followed by palliative medicine since 10/20/17 with cancer related nausea/vomiting, poor appetite, and constipation due to medications. He states his nausea and vomiting began even prior to his first chemotherapy treatment, but worsened since beginning chemotherapy. When he has nausea episode, he does find relief with vomiting. Vomit is usually bile, but can also include recently eaten meals. Triggers can include certain foods (due to taste) and also laying flat. He finds incomplete relief with his medications for nausea. While hospitalized in early September, he tried Reglan IV 4 times daily without improvement. He has since been treated with Zofran and olanzapine. He takes the Zofran 2?3 times per day and the olanzapine nightly. He has also been prescribed Phenergan suppository which he has not taken yet. His appetite is poor??related to nausea from certain foods, dry mouth (improved with Biotene), and dysguesia. He does tolerate macaroni and cheese, ravioli, ramen noodles, and Boost Plus fairly well; and very cold or very hot drinks are best tolerated. In addition to traditional anti-emetics, he was given dexamethasone for chemotherapy days 3?4 which reduced his nausea. He has ongoing constipation. Has daily bowel movements, but these are small volume and mushy/watery. Last time he feels like he emptied his bowels was after a dose of magnesium citrate a couple weeks back. He has tried MiraLAX and senna since becoming more constipated, but feels cramping with the medications and increased nausea when having a bowel movement with them. He notes mild pain in the left mid back which he attributes to his pancreatic cancer. He tried tramadol as needed in the past without effect. He now takes oxycodone 2?3 tablets a time with good relief, allowing him to get a night of sleep. PAST MEDICAL HISTORY: PAST MEDICAL HISTORY Diagnosis Date - Cancer (HCC) - History of gallstones - HTN (hypertension) - Pancreatic pseudocyst 05/16/2017 - Pancreatitis - Psychiatric disorder anxiety PAST SURGICAL HISTORY: PAST SURGICAL HISTORY Procedure Laterality Date - ANESTHESIA TOTAL HIP ARTHROPLASTY Left 1996 - CHOLECYSTECTOMY 08/24/2017 - EGD 05/2017, 07/2017 - KNEE SCOPE,DIAGNOSTIC Right 02/02/16 Arthroscopy, knee - ORTHOPEDICS SURGERY HX CURRENT MEDICATIONS: promethazine (PHENERGAN) 25 mg suppository 1 Suppository by RECTAL route every 6 hours as needed. ondansetron orally disintegrating (ZOFRAN ODT) 8 mg disintegrating tablet Take 1 tablet by mouth every 8 hours as needed. OLANZapine (ZYPREXA) 2.5 mg tablet 1-2 tabs during the day and 1-2 times every night for nausea oxyCODONE IR (ROXICODONE) 5 mg immediate release tablet Take 1-2 tablets by mouth every 4 hours as needed for Pain for up to [address] (PROTONIX) 40 mg tablet Take 1 tablet by mouth twice daily. clonazePAM (KLONOPIN) 1 mg tablet Take 1 tablet by mouth twice daily as needed for up to 30 days. senna (SENNA LAXATIVE) 8.6 mg tab Take 1-2 tablets by mouth twice daily. dexamethasone (DECADRON) 4 mg tablet Take one tab with an early breakfast and one tab with early lunch starting day 3 and 4. Take with food oxyCODONE IR (ROXICODONE) 5 mg immediate release tablet Take 1 tablet by mouth every 6 hours as needed for Pain for up to 30 days. sucralfate (CARAFATE) 100 mg/mL suspension Take 10 mL by mouth four times daily. amLODIPine (NORVASC) 10 mg tablet Take 1 tablet by mouth once daily. icxesf-pzsxclvt-hmgrbix (CREON) 24,000-76,000 -120,000 unit cpDR Take 3 capsules by mouth three times daily with meals. acetaminophen (TYLENOL) 325 mg tablet Take 2 tablets by mouth every 6 hours as needed. 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 Rastafari: REVIEW OF SYSTEMS: Modified ESAS ([place] Symptom Assessment Scale): Information Provided By: Patient Pain: None Nausea: Mild Loss of Appetite: Moderate Constipation: Severe Shortness of Breath: None Drowsiness: Mild Tiredness: Moderate Depression: Mild Anxiety: Mild How you feel overall: Fair Other problem: N/A Constitutional: Denies insomnia HEENT: Denies dysphagia, Positive for dry mouth and Positive for taste changes Cardiovascular: Denies chest pain Respiratory: Denies cough Gastrointestinal: Denies diarrhea and Positive for vomiting Genitourinary: Denies dysuria Musculoskeletal: Denies swelling Neurological: Denies confusion Pain Assessment: Location: Left low back Onset: Months Pain Severity: none?mild Character: Visceral Temporal Pattern: Intermittent Referral Pattern: None Etiology: Cancer Other Sites of Pain: None Personal Pain Goal: none?mild Palliative Performance Scale % (PPS): > or = 60 (0) Oral Intake: Moderately reduced (> mouthfuls) (1.0) Edema: Absent (0) Dyspnea at Rest: Absent (0) Delirium: Absent (0) Palliative Prognostic Index (PPI) Total Score: 0-2 PHYSICAL EXAMINATION: Vital signs: There were no vitals taken for this visit. General Appearance: No apparent distress Skin: No rash Eyes: Normal HENT: Thrush present Neck: Grossly normal Lungs: unlabored CV: Not examined Abdomen: nondistended : Not examined Musculoskeletal: No gross deformity Lymphatics: Not examined Neuro: Delirium absent DATA: Diagnostic tests reviewed for today's visit: Most recent labs and imaging results. ASSESSMENT AND PLAN: 57-year-old male with pancreatic adenocarcinoma diagnosed 09/19/17 followed by palliative medicine since 10/20/17 with cancer related nausea/vomiting, poor appetite, constipation due to medications, dysgeusia, and oral thrush. ~Continue Zofran 8 mg 3 times daily??on a scheduled basis ~Increase Zyprexa to 5 mg at bedtime with 2.5 mg in morning and midday??on a scheduled basis ~Use Phenergan 25 mg PO/AZ up to every 6 hours as needed for nausea ~Continue Protonix 40 mg twice daily and Carafate 10 mL 4 times daily for GERD ~Titrate senna??start with 2 tablets twice daily and increase as needed to 4 tablets twice daily ~Add MiraLAX 1-2 capfuls per day as needed ~Take one bottle magnesium citrate tomorrow morning if still constipated ~Take fluconazole ?1 for oral thrush??hope to reduce dysgeusia and dry mouth Advance Care Planning: I did not discuss Advance Care Planning at this visit, I plan to discuss this at a future visit. Next Visit: 11/06/17 Recommendations will be communicated back to the consulting service by way of shared electronic medical record. SIGNATURE: Jero Mae MD PATIENT NAME: Evans Newell DATE: October 20, 2017 TIME: 10:55 AM PAGER/CONTACT #: [id number] Observed: 10/20/2017 Status: COMPLETED Source: [place] 10:00 AM [facility] REPOSITORY Visit (SP) Office ([facility]) DONNEVANS PATEL ([id number]) 1960 M Date Time Provider Department 10/20/17 10:00 AM JERO MAE) [facility] During your visit today, we recorded the following information about you: Jero Mae MD 10/20/2017 4:44 PM Signed PALLIATIVE MEDICINE INITIAL CONSULT SERVICE DATE: 10/20/2017 SERVICE TIME: 12:05 PM Referring Physician: Rocio Fermin Primary Physician: Yohana Dolan MD REASON FOR CONSULT: Symptom control (specify symptom): nausea HISTORY OF PRESENT ILLNESS: Evans Newell is a 57-year-old male with pancreatic adenocarcinoma diagnosed 09/19/17. Started gemcitabine and Abraxane 10/06/17, with dose reduction subsequently due to nausea and vomiting. No significant medical comorbidities. 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 Followed by palliative medicine since 10/20/17 with cancer related nausea/vomiting, poor appetite, and constipation due to medications. He states his nausea and vomiting began even prior to his first chemotherapy treatment, but worsened since beginning chemotherapy. When he has nausea episode, he does find relief with vomiting. Vomit is usually bile, but can also include recently eaten meals. Triggers can include certain foods (due to taste) and also laying flat. He finds incomplete relief with his medications for nausea. While hospitalized in early September, he tried Reglan IV 4 times daily without improvement. He has since been treated with Zofran and olanzapine. He takes the Zofran 2?3 times per day and the olanzapine nightly. He has also been prescribed Phenergan suppository which he has not taken yet. His appetite is poor??related to nausea from certain foods, dry mouth (improved with Biotene), and dysguesia. He does tolerate macaroni and cheese, ravioli, ramen noodles, and Boost Plus fairly well; and very cold or very hot drinks are best tolerated. In addition to traditional anti-emetics, he was given dexamethasone for chemotherapy days 3?4 which reduced his nausea. He has ongoing constipation. Has daily bowel movements, but these are small volume and mushy/watery. Last time he feels like he emptied his bowels was after a dose of magnesium citrate a couple weeks back. He has tried MiraLAX and senna since becoming more constipated, but feels cramping with the medications and increased nausea when having a bowel movement with them. He notes mild pain in the left mid back which he attributes to his pancreatic cancer. He tried tramadol as needed in the past without effect. He now takes oxycodone 2?3 tablets a time with good relief, allowing him to get a night of sleep. PAST MEDICAL HISTORY: PAST MEDICAL HISTORY Diagnosis Date - Cancer (HCC) - History of gallstones - HTN (hypertension) - Pancreatic pseudocyst 05/16/2017 - Pancreatitis - Psychiatric disorder anxiety PAST SURGICAL HISTORY: PAST SURGICAL HISTORY Procedure Laterality Date - ANESTHESIA TOTAL HIP ARTHROPLASTY Left 1996 - CHOLECYSTECTOMY 08/24/2017 - EGD 05/2017, 07/2017 - KNEE SCOPE,DIAGNOSTIC Right 02/02/16 Arthroscopy, knee - ORTHOPEDICS SURGERY HX CURRENT MEDICATIONS: promethazine (PHENERGAN) 25 mg suppository 1 Suppository by RECTAL route every 6 hours as needed. ondansetron orally disintegrating (ZOFRAN ODT) 8 mg disintegrating tablet Take 1 tablet by mouth every 8 hours as needed. OLANZapine (ZYPREXA) 2.5 mg tablet 1-2 tabs during the day and 1-2 times every night for nausea oxyCODONE IR (ROXICODONE) 5 mg immediate release tablet Take 1-2 tablets by mouth every 4 hours as needed for Pain for up to [address] (PROTONIX) 40 mg tablet Take 1 tablet by mouth twice daily. clonazePAM (KLONOPIN) 1 mg tablet Take 1 tablet by mouth twice daily as needed for up to 30 days. senna (SENNA LAXATIVE) 8.6 mg tab Take 1-2 tablets by mouth twice daily. dexamethasone (DECADRON) 4 mg tablet Take one tab with an early breakfast and one tab with early lunch starting day 3 and 4. Take with food oxyCODONE IR (ROXICODONE) 5 mg immediate release tablet Take 1 tablet by mouth every 6 hours as needed for Pain for up to 30 days. sucralfate (CARAFATE) 100 mg/mL suspension Take 10 mL by mouth four times daily. amLODIPine (NORVASC) 10 mg tablet Take 1 tablet by mouth once daily. glsakf-tfqboquv-ijlgwfl (CREON) 24,000-76,000 -120,000 unit cpDR Take 3 capsules by mouth three times daily with meals. acetaminophen (TYLENOL) 325 mg tablet Take 2 tablets by mouth every 6 hours as needed. 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 Rastafari: REVIEW OF SYSTEMS: Modified ESAS ([place] Symptom Assessment Scale): Information Provided By: Patient Pain: None Nausea: Mild Loss of Appetite: Moderate Constipation: Severe Shortness of Breath: None Drowsiness: Mild Tiredness: Moderate Depression: Mild Anxiety: Mild How you feel overall: Fair Other problem: N/A Constitutional: Denies insomnia HEENT: Denies dysphagia, Positive for dry mouth and Positive for taste changes Cardiovascular: Denies chest pain Respiratory: Denies cough Gastrointestinal: Denies diarrhea and Positive for vomiting Genitourinary: Denies dysuria Musculoskeletal: Denies swelling Neurological: Denies confusion Pain Assessment: Location: Left low back Onset: Months Pain Severity: none?mild Character: Visceral Temporal Pattern: Intermittent Referral Pattern: None Etiology: Cancer Other Sites of Pain: None Personal Pain Goal: none?mild Palliative Performance Scale % (PPS): > or = 60 (0) Oral Intake: Moderately reduced (> mouthfuls) (1.0) Edema: Absent (0) Dyspnea at Rest: Absent (0) Delirium: Absent (0) Palliative Prognostic Index (PPI) Total Score: 0-2 PHYSICAL EXAMINATION: Vital signs: There were no vitals taken for this visit. General Appearance: No apparent distress Skin: No rash Eyes: Normal HENT: Thrush present Neck: Grossly normal Lungs: unlabored CV: Not examined Abdomen: nondistended : Not examined Musculoskeletal: No gross deformity Lymphatics: Not examined Neuro: Delirium absent DATA: Diagnostic tests reviewed for today's visit: Most recent labs and imaging results. ASSESSMENT AND PLAN: 57-year-old male with pancreatic adenocarcinoma diagnosed 09/19/17 followed by palliative medicine since 10/20/17 with cancer related nausea/vomiting, poor appetite, constipation due to medications, dysgeusia, and oral thrush. ~Continue Zofran 8 mg 3 times daily??on a scheduled basis ~Increase Zyprexa to 5 mg at bedtime with 2.5 mg in morning and midday??on a scheduled basis ~Use Phenergan 25 mg PO/AZ up to every 6 hours as needed for nausea ~Continue Protonix 40 mg twice daily and Carafate 10 mL 4 times daily for GERD ~Titrate senna??start with 2 tablets twice daily and increase as needed to 4 tablets twice daily ~Add MiraLAX 1-2 capfuls per day as needed ~Take one bottle magnesium citrate tomorrow morning if still constipated ~Take fluconazole ?1 for oral thrush??hope to reduce dysgeusia and dry mouth Advance Care Planning: I did not discuss Advance Care Planning at this visit, I plan to discuss this at a future visit. Next Visit: 11/06/17 Recommendations will be communicated back to the consulting service by way of shared electronic medical record. SIGNATURE: Jero Mae MD PATIENT NAME: Evans Newell DATE: October 20, 2017 TIME: 10:55 AM PAGER/CONTACT #: Jero Mae MD 10/20/2017 12:14 PM Signed Nausea/Reflux ? Continue Zofran 8 mg 3 times daily on a scheduled basis ? Use Zyprexa 2.5 mg tablets: 1 in the morning, 1 at midday, and 2 at bedtime ? Use Phenergan 25 mg up to every 6 hours as needed for nausea ? Continue Protonix 40 mg twice daily ? Continue Carafate 10 mL 4 times daily Constipation ? Use 1 bottle of magnesium citrate for constipation ? Try senna and MiraLAX again after the magnesium citrate. ? Start with 2 tabs Senna twice daily and one capful of Miralax daily. Titrate up to 4 tabs Senna twice daily and 2 capfuls of Miralax daily ? If still experiencing cramping, call our office for further recommendations for daily use constipation medications Thrush ? Take 1 dose of fluconazole for your thrush Referring Provider: ROCIO FERMIN [[id number]] Allergies As of Date: 10/20/2017 (No Known Allergies) Date Reviewed: 10/20/2017 Reviewed by: Jose Eduardo Cobb ([facility]) Chambers - Fully Assessed Primary Visit Diagnosis:Nausea [R11.0] Other Visit Diagnoses:Drug-induced constipation [K59.03] Thrush, oral [B37.0] Pancreatic adenocarcinoma (HCC) [C25.9] Cancer associated pain [G89.3] Gastroesophageal reflux disease, esophagitis presence not specified [K21.9] Encounter for palliative care [Z51.5] Order(s):ondansetron orally disintegrating (ZOFRAN ODT) 8 mg disintegrating tabletTake 1 tablet by mouth three times daily.Disp: Rfl: OLANZapine (ZYPREXA) 2.5 mg tablet1 tab in morning and midday, and 2 tabs at bedtimeDisp: Rfl: senna (SENNA LAXATIVE) 8.6 mg tabTake 1-4 tablets by mouth twice daily.Disp: Rfl: fluconazole (DIFLUCAN) 200 mg tabletTake 1 tablet by mouth once daily for 1 day.Disp: 1 tabletRfl: 0 promethazine (PHENERGAN) 25 mg tabletTake 1 tablet by mouth every 6 hours as needed for Nausea/Vomiting.Disp: 90 tabletRfl: 0 Disposition: Return in about 2 weeks (around 11/06/2017) for On same day as other [facility] appointments, Can be seen in treatment. Follow-up and Disposition History Recorded Prescriptions as of 10/20/2017 Sig: ONDANSETRON 8 MG DISINTEGRATI* Take 1 tablet by mouth three * OLANZAPINE 2.5 MG TABLET 1 tab in morning and midday, * SENNOSIDES 8.6 MG TABLET Take 1-4 tablets by mouth twi* FLUCONAZOLE 200 MG TABLET Take 1 tablet by mouth once d* PROMETHAZINE 25 MG TABLET Take 1 tablet by mouth every * PROMETHAZINE 25 MG RECTAL SUP* 1 Suppository by RECTAL route* OXYCODONE 5 MG TABLET Take 1-2 tablets by mouth fahad* PANTOPRAZOLE 40 MG TABLET,DEL* Take 1 tablet by mouth twice * CLONAZEPAM 1 MG TABLET Take 1 tablet by mouth twice * DEXAMETHASONE 4 MG TABLET Take one tab with an early br* OXYCODONE 5 MG TABLET Take 1 tablet by mouth every * SUCRALFATE 100 MG/ML ORAL HOLALND* Take 10 mL by mouth four time* AMLODIPINE 10 MG TABLET Take 1 tablet by mouth once d* QXRPHJ-RPWATUSX-KINEZTZ 24,00* Take 3 capsules by mouth thre* ACETAMINOPHEN 325 MG TABLET Take 2 tablets by mouth every* Patient taking differently: Take 650 mg by mouth every 6 * Problem List As Of Date 10/20/2017 Noted Resolved Loose body in knee, right knee [M23.41] INVALID FOR* Benign essential hypertension [I10] INVALID FOR* Obesity [E66.9] INVALID FOR* Tear of lateral meniscus of right knee [S83.281*INVALID FOR* Primary osteoarthritis of right knee [M17.11] INVALID FOR* Pancreatic pseudocyst [K86.3] INVALID FOR* WILVER (generalized anxiety disorder) [F41.1] INVALID FOR* Gallstones [K80.20] INVALID FOR*08/24/2017 More... Pancreatitis [K85.90] INVALID FOR*08/24/2017 More... Pancreatitis [K85.90] INVALID FOR* Malnutrition of moderate degree (HCC) [E44.0] INVALID FOR* Obesity, Class I, BMI 30-34.9 E66.9 [E66.9] INVALID FOR* Nicotine use disorder, F17.2 [F17.200] INVALID FOR* Pancreatic adenoma [D13.6] INVALID FOR*09/22/2017 Pancreatic adenocarcinoma (HCC) [C25.9] INVALID FOR* Admission for fitting of port-a-cath [Z45.2] INVALID FOR* More... Other instructions from your clinician: Nausea/Reflux ? Continue Zofran 8 mg 3 times daily on a scheduled basis ? Use Zyprexa 2.5 mg tablets: 1 in the morning, 1 at midday, and 2 at bedtime ? Use Phenergan 25 mg up to every 6 hours as needed for nausea ? Continue Protonix 40 mg twice daily ? Continue Carafate 10 mL 4 times daily Constipation ? Use 1 bottle of magnesium citrate for constipation ? Try senna and MiraLAX again after the magnesium citrate. ? Start with 2 tabs Senna twice daily and one capful of Miralax daily. Titrate up to 4 tabs Senna twice daily and 2 capfuls of Miralax daily ? If still experiencing cramping, call our office for further recommendations for daily use constipation medications Thrush ? Take 1 dose of fluconazole for your thrush Encounter Status:Closed by JERO MAE MD on 10/20/17 PROGRESS Observed: 10/20/2017 Status: COMPLETED Source: [place] 8:28 AM [facility] REPOSITORY O ID: [id number] Author: Jose Eduardo Cobb (Learning Engineer) Reyes Service: (none) Author Type: Nurse Practitioner Type: Progress Notes Filed: 10/20/2017 9:38 AM Note Text: Nurse Practitioner Established Patient Visit Attending Physician: Dr. Fermin CC: follow up visit while receiving chemotherapy for pancreatic adenocarcinoma. HPI: Mr. Newell has the following relevant history: ? Starting December 2016, symptoms of abdominal pain. ? May 2017: Diagnosis of gallstone pancreatitis with pancreatic pseudocysts. EGD guided cystogastrostomy was performed because of pyloric narrowing from the pseudocyst. ? Jul 2017: Cystogastrostomy stent removed. ? Aug 24, 2017: Laparoscopic cholecystectomy. Final pathology showed chronic cholecystitis. ? Had postcholecystectomy pancreatitis, evaluation for which revealed a pancreatic tail lesion as well. ? September 19, 2017: EUS-guided FNA of pancreatic lesion confirmed adenocarcinoma. ? Reviewed at our multidisciplinary PancreatoBiliary Tumor Board: Consensus for upfront chemotherapy followed by attempt at resection, with the caveat that the cystogastrostomy may have led to cancer spillage. ? October 06: Started gemcitabine/nab-paclitaxel Current treatment: gemcitabine/nab-paclitaxel, s/p C1D8 (10/13/17). Starting October 06, 2017 C1D15- dose reduction of gemcitabine and abraxane due to n/v PMH: No remarkable comorbidities. Medicines, allergies reviewed, as noted. 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 They have 3 children. FH: Sister had breast cancer. IH: Here today for f/u after dose # 2 of gem/abraxane. His nausea did not improve after changes made after C1. He is taking zyprexa 5mg at night. He is taking zofran 8mg every hours PRN. He was given 4mg of dex BID on days 3 and 4 to help with body aches r/t to abraxane and this was helpful. Dex did not help his nausea. Senna and miralax cause cramping which leads to nausea and vomiting. His pain has been under better control this past week. Appetite is poor and he eats mostly noodles and macaroni as well as 3 boost per day. No fever. No neuropathy.He is working hard to maintain adequate hydration. ROS: A complete ROS is otherwise negative. On Exam: Blood pressure 115/62, pulse 76, temperature 36.7 ?C (98.1 ?F), temperature source Oral, resp. rate 16, weight 108.5 kg (239 lb 3.2 oz), SpO2 97 %. -7lbs in 2 weeks. In no distress. No pallor icterus or cyanosis. Present with . No pallor, icterus, or cyanosis. HEENT: Normal. Abd: . No organomegaly or free fluid. Skin: No rash. Neuro: No focal neurologic findings. Psych: Normal affect. Labs: Component Latest Ref Rng AND Units 10/13/2017 10/20/2017 Protein, Total 6.3 - 8.0 g/dL 6.1 (L) 5.7 (L) Albumin 3.9 - 4.9 g/dL 2.9 (L) 2.7 (L) Calcium 8.5 - 10.2 mg/dL 8.4 (L) 8.2 (L) Bilirubin, Total 0.2 - 1.3 mg/dL 0.4 0.6 Alkaline Phosphatase 36 - 108 U/L 224 (H) 279 (H) AST 14 - 40 U/L 40 85 (H) Glucose 74 - 99 mg/dL 131 (H) 144 (H) BUN 9 - 24 mg/dL 13 16 Creatinine 0.73 - 1.22 mg/dL 0.62 (L) 0.60 (L) Sodium 136 - 144 mmol/L 141 140 Potassium 3.7 - 5.1 mmol/L 3.7 4.0 Chloride 97 - 105 mmol/L 102 103 CO2 22 - 30 mmol/L 28 28 Anion Gap 9 - 18 mmol/L 11 9 ALT 10 - 54 U/L 31 129 (H) eGFR- >60 >60 eGFR-All Other Races . >60 >60 WBC 3.70 - 11.00 k/uL 8.06 10.18 RBC 4.20 - 6.00 m/uL 3.53 (L) 3.31 (L) Hemoglobin 13.0 - 17.0 g/dL 9.8 (L) 9.3 (L) Hematocrit 39.0 - 51.0 % 29.7 (L) 27.9 (L) MCV 80.0 - 100.0 fL 84.1 84.3 MCH 26.0 - 34.0 pG 27.8 28.1 MCHC 30.5 - 36.0 g/dL 33.0 33.3 RDW-CV 11.5 - 15.0 % 14.4 14.3 Platelet Count 150 - 400 k/uL 319 271 MPV 9.0 - 12.7 fL 10.5 9.9 Absol Gran Count 1.45 - 7.50 k/uL 5.66 7.76 (H) Absolute nRBC <0.01 k/uL <0.01 0.12 (H) Impression and Recommendations: Pancreatic adenocarcinoma. 1. Systemic chemotherapy: labs are within limits for continuation of treatment today. He continues to struggle with nausea and vomiting despite several changes made to his antiemetics. This nausea pre-dates treatment, but it does appear it has worsened with treatment. Plan is to continue with D15 today but will reduce dose of gemcitabine and abraxane to see if this is better tolerated. I have arranged for a palliative medicine consult today. Patient to RTC in 2 weeks for follow up. I spent 25 minutes in the visit, with more than 50% of the total cqhi-fo-javc time of the visit in counseling / coordination of care. Jose Eduardo Chambers APRN.ZEINA October 20, 2017 MONTRELLOVSP Observed: 10/20/2017 Status: COMPLETED Source: [place] 8:10 AM [facility] REPOSITORY Visit (SP) Office ([facility]) ULYSSESEVANS ROLLINS ([id number]) 1960 M Date Time Provider Department 10/20/17 8:10 AM JOSE EDUARDO CHAMBERS ([facility]) [facility] During your visit today, we recorded the following information about you: Temperature Pulse Respiration Blood pressure 98.1 degrees 76/minute 16/minute 115/62 Weight 108.5 kg Sandy Hedrick RN, RN 10/20/2017 8:45 AM Signed Additional intake questions: Has the patient had nausea, vomiting, diarrhea, constipation, fatigue for > 1 week? Vomiting, Yes, MD Notified Nausea, Yes, MD Notified Fatigue, Yes, MD Notified Diarrhea, Yes, MD Notified Constipation, Yes, MD Notified Does the patient have a decreased appetite? No Does patient want to see a Regulatory Internship? No (yes to any of above refer patient to schedulers for dietitian appointment) ) Does patient have any new or increased numbness or tingling of extremities? No Is patient interested in fertility information? No Does patient need any prescription refills? No Electronically Signed By: NICKI Rocha APRN.CNP 10/20/2017 9:38 AM Signed Nurse Practitioner Established Patient Visit Attending Physician: Dr. Fermin CC: follow up visit while receiving chemotherapy for pancreatic adenocarcinoma. HPI: Mr. Newell has the following relevant history: ? Starting December 2016, symptoms of abdominal pain. ? May 2017: Diagnosis of gallstone pancreatitis with pancreatic pseudocysts. EGD guided cystogastrostomy was performed because of pyloric narrowing from the pseudocyst. ? Jul 2017: Cystogastrostomy stent removed. ? Aug 24, 2017: Laparoscopic cholecystectomy. Final pathology showed chronic cholecystitis. ? Had postcholecystectomy pancreatitis, evaluation for which revealed a pancreatic tail lesion as well. ? September 19, 2017: EUS-guided FNA of pancreatic lesion confirmed adenocarcinoma. ? Reviewed at our multidisciplinary PancreatoBiliary Tumor Board: Consensus for upfront chemotherapy followed by attempt at resection, with the caveat that the cystogastrostomy may have led to cancer spillage. ? October 06: Started gemcitabine/nab-paclitaxel Current treatment: gemcitabine/nab-paclitaxel, s/p C1D8 (10/13/17). Starting October 06, 2017 C1D15- dose reduction of gemcitabine and abraxane due to n/v PMH: No remarkable comorbidities. Medicines, allergies reviewed, as noted. 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 They have 3 children. FH: Sister had breast cancer. IH: Here today for f/u after dose # 2 of gem/abraxane. His nausea did not improve after changes made after C1. He is taking zyprexa 5mg at night. He is taking zofran 8mg every hours PRN. He was given 4mg of dex BID on days 3 and 4 to help with body aches r/t to abraxane and this was helpful. Dex did not help his nausea. Senna and miralax cause cramping which leads to nausea and vomiting. His pain has been under better control this past week. Appetite is poor and he eats mostly noodles and macaroni as well as 3 boost per day. No fever. No neuropathy.He is working hard to maintain adequate hydration. ROS: A complete ROS is otherwise negative. On Exam: Blood pressure 115/62, pulse 76, temperature 36.7 ?C (98.1 ?F), temperature source Oral, resp. rate 16, weight 108.5 kg (239 lb 3.2 oz), SpO2 97 %. -7lbs in 2 weeks. In no distress. No pallor icterus or cyanosis. Present with . No pallor, icterus, or cyanosis. HEENT: Normal. Abd: . No organomegaly or free fluid. Skin: No rash. Neuro: No focal neurologic findings. Psych: Normal affect. Labs: Component Latest Ref Rng AND Units 10/13/2017 10/20/2017 Protein, Total 6.3 - 8.0 g/dL 6.1 (L) 5.7 (L) Albumin 3.9 - 4.9 g/dL 2.9 (L) 2.7 (L) Calcium 8.5 - 10.2 mg/dL 8.4 (L) 8.2 (L) Bilirubin, Total 0.2 - 1.3 mg/dL 0.4 0.6 Alkaline Phosphatase 36 - 108 U/L 224 (H) 279 (H) AST 14 - 40 U/L 40 85 (H) Glucose 74 - 99 mg/dL 131 (H) 144 (H) BUN 9 - 24 mg/dL 13 16 Creatinine 0.73 - 1.22 mg/dL 0.62 (L) 0.60 (L) Sodium 136 - 144 mmol/L 141 140 Potassium 3.7 - 5.1 mmol/L 3.7 4.0 Chloride 97 - 105 mmol/L 102 103 CO2 22 - 30 mmol/L 28 28 Anion Gap 9 - 18 mmol/L 11 9 ALT 10 - 54 U/L 31 129 (H) eGFR- >60 >60 eGFR-All Other Races . >60 >60 WBC 3.70 - 11.00 k/uL 8.06 10.18 RBC 4.20 - 6.00 m/uL 3.53 (L) 3.31 (L) Hemoglobin 13.0 - 17.0 g/dL 9.8 (L) 9.3 (L) Hematocrit 39.0 - 51.0 % 29.7 (L) 27.9 (L) MCV 80.0 - 100.0 fL 84.1 84.3 MCH 26.0 - 34.0 pG 27.8 28.1 MCHC 30.5 - 36.0 g/dL 33.0 33.3 RDW-CV 11.5 - 15.0 % 14.4 14.3 Platelet Count 150 - 400 k/uL 319 271 MPV 9.0 - 12.7 fL 10.5 9.9 Absol Gran Count 1.45 - 7.50 k/uL 5.66 7.76 (H) Absolute nRBC <0.01 k/uL <0.01 0.12 (H) Impression and Recommendations: Pancreatic adenocarcinoma. 1. Systemic chemotherapy: labs are within limits for continuation of treatment today. He continues to struggle with nausea and vomiting despite several changes made to his antiemetics. This nausea pre-dates treatment, but it does appear it has worsened with treatment. Plan is to continue with D15 today but will reduce dose of gemcitabine and abraxane to see if this is better tolerated. I have arranged for a palliative medicine consult today. Patient to RTC in 2 weeks for follow up. I spent 25 minutes in the visit, with more than 50% of the total [id number] time of the visit in counseling / coordination of care. Jose Eduardo Chamebrs, CNC MAINTENANCE MECHANIC.[facility] October 20, 2017 Referring Provider: ROCIO FERMIN [[id number]] Allergies As of Date: 10/20/2017 (No Known Allergies) Date Reviewed: 10/20/2017 Reviewed by: Jose Eduardo Cobb ([facility]) Reyes - Fully Assessed Reason for Visit: Established Patient [175] Primary Visit Diagnosis:Pancreatic adenocarcinoma (HCC) [C25.9] Other Visit Diagnoses:Intractable vomiting with nausea, unspecified vomiting type [R11.2] Cancer associated pain [G89.3] Order(s):CHEMO SCHEDULING [[id number]] Order #: [id number] Disposition: Return in 2 weeks (on 11/03/2017) for 11/[address] jalloh ok to double book then 11/13 with jose eduardo and 11/20 with zander . Follow-up and Disposition History Recorded Prescriptions as of 10/20/2017 Sig: PROMETHAZINE 25 MG RECTAL SUP* 1 Suppository by RECTAL route* ONDANSETRON 8 MG DISINTEGRATI* Take 1 tablet by mouth every * OLANZAPINE 2.5 MG TABLET 1-2 tabs during the day and 1* OXYCODONE 5 MG TABLET Take 1-2 tablets by mouth fahad* PANTOPRAZOLE 40 MG TABLET,DEL* Take 1 tablet by mouth twice * CLONAZEPAM 1 MG TABLET Take 1 tablet by mouth twice * SENNOSIDES 8.6 MG TABLET Take 1-2 tablets by mouth twi* DEXAMETHASONE 4 MG TABLET Take one tab with an early br* OXYCODONE 5 MG TABLET Take 1 tablet by mouth every * SUCRALFATE 100 MG/ML ORAL HOLLAND* Take 10 mL by mouth four time* AMLODIPINE 10 MG TABLET Take 1 tablet by mouth once d* [id number] 24,00* Take 3 capsules by mouth thre* ACETAMINOPHEN 325 MG TABLET Take 2 tablets by mouth every* Patient taking differently: Take 650 mg by mouth every 6 * Problem List As Of Date 10/20/2017 Noted Resolved Loose body in knee, right knee [M23.41] INVALID FOR* Benign essential hypertension [I10] INVALID FOR* Obesity [E66.9] INVALID FOR* Tear of lateral meniscus of right knee [S83.281*INVALID FOR* Primary osteoarthritis of right knee [M17.11] INVALID FOR* Pancreatic pseudocyst [K86.3] INVALID FOR* WILVER (generalized anxiety disorder) [F41.1] INVALID FOR* Gallstones [K80.20] INVALID FOR*08/24/2017 More... Pancreatitis [K85.90] INVALID FOR*08/24/2017 More... Pancreatitis [K85.90] INVALID FOR* Malnutrition of moderate degree (HCC) [E44.0] INVALID FOR* Obesity, Class I, BMI 30-34.9 E66.9 [E66.9] INVALID FOR* Nicotine use disorder, F17.2 [F17.200] INVALID FOR* Pancreatic adenoma [D13.6] INVALID FOR*09/22/2017 Pancreatic adenocarcinoma (HCC) [C25.9] INVALID FOR* Admission for fitting of port-a-cath [Z45.2] INVALID FOR* More... Visit Notes: >> Sandy Jonas) NICKI Hedrick MonOct 20, 2017 8:25 AM Status: Signed Additional intake questions: Has the patient had nausea, vomiting, diarrhea, constipation, fatigue for > 1 week? Vomiting, Yes, MD Notified Nausea, Yes, MD Notified Fatigue, Yes, MD Notified Diarrhea, Yes, MD Notified Constipation, Yes, MD Notified Does the patient have a decreased appetite? No Does patient want to see a Regulatory Internship? No (yes to any of above refer patient to schedulers for dietitian appointment) ) Does patient have any new or increased numbness or tingling of extremities? No Is patient interested in fertility information? No Does patient need any prescription refills? No Electronically Signed By: Sandy Hedrick RN Encounter Status:Closed by JOSE EDUARDO CHAMBERS CNP on 6/8/[address] + CBC Collected: 10/20/2017 Status: F Source: [place] 7:27 AM [facility] REPOSITORY TYPE CODE TESTS RESULT OUT OF REFERENCE UNITS RANGE LAB WBC 3.70-11.00 k/uL WBC 10.18 LAB RBC 4.20-6.00 m/uL Low RBC 3.31 LAB HGB 13.0-17.0 g/dL Low Hemoglobin 9.3 LAB HCT 39.0-51.0 % Low Hematocrit 27.9 LAB MCV 80.0-100.0 fL MCV 84.3 LAB MCH 26.0-34.0 pG MCH 28.1 LAB MCHC 30.5-36.0 g/dL MCHC 33.3 LAB RDWCV 11.5-15.0 % RDW-CV 14.3 LAB PLTCT 150-400 k/uL Platelet Count 271 LAB MPV 9.0-12.7 fL MPV 9.9 LAB ABGRAN 1.45-7.50 k/uL Absol High Gran Count 7.76 LAB ABSNUC <0.01 k/uL Absolute High nRBC 0.12 Performed By: #### AGCCBC, CMP #### [facility] [address] [address] COMP METABOLIC PANEL Collected: 10/20/2017 Status: F Source: [place] 7:27 [facility] REPOSITORY TYPE CODE TESTS RESULT OUT OF REFERENCE UNITS RANGE LAB TP 6.3-8.0 g/dL Low Protein, Total 5.7 LAB ALB 3.9-4.9 g/dL Low Albumin 2.7 LAB CA 8.5-10.2 mg/dL Low Calcium, Total 8.2 LAB TBIL 0.2-1.3 mg/dL Bilirubin, Total 0.6 LAB ALKP 36-108 U/L Alkaline High Phosphatase 279 LAB AST 14-40 U/L AST High 85 LAB GLU 74-99 mg/dL Glucose High 144 Result Comment: The [place] Diabetes Association (ADA) provides guidance for cutoff values for fasting glucose and random glucose. The ADA defines fasting as no caloric intake for at least 8 hours. Fas ting plasma glucose results between 100 to 125 mg/dL indicate increased risk for diabetes (prediabetes). Fasting plasma glucose results greater than or equal to 126 mg/dL meet the criteria for diagnosis of diabetes. In the absence of unequivocal hyperglycemia, results should be confirmed by repeat testing. In a patient with classic symptoms of hyperglycemia or hyperglycemic crisis, random plasma glucose results greater than or equal to 200 mg/dL meet the criteria for diagnosis of diabetes. Reference: Standards of Medical Care in Diabetes 2016, [place] Diabetes Association. Diabetes Care. 2016.39(Suppl 1). LAB BUN 9-24 mg/dL BUN 16 LAB CRET 0.73-1.22 mg/dL Low Creatinine 0.60 LAB NA 136-144 mmol/L Sodium 140 LAB K 3.7-5.1 mmol/L Potassium 4.0 LAB CL 97-105 mmol/L Chloride 103 LAB CO2 22-30 mmol/L CO2 28 LAB AGAP 9-18 mmol/L Anion Gap 9 LAB ALT 10-54 U/L ALT High 129 LAB GFRAA eGFR- Amer. >60 LAB GFRNAA . eGFR-All Other Races >60 Result Comment: eGFR (Estimated GFR) Units of measure: mL/min/1.73 meters squared eGFR is derived from the reexpressed MDRD Study equation using the following parameters: serum creatinine, age, gender and race. The creatinine assay has been calibrated to be traceable to IDMS. An eGFR <60 mL/min/1.73m2 for >3 months is consistent with chronic kidney disease. Refer to KDOQI guidelines for clinical interpretation. In patients with unstable renal function, e.g. those with acute kidney injury, the eGFR may not accurately reflect actual GFR. Performed By: #### AGCCBC, CMP #### [facility] [address] [id number] PROGRESS Observed: 10/13/2017 Status: COMPLETED Source: [place] 12:36 PM [facility] REPOSITORY O ID: [id number] Author: Ashlee (Rn) NICKI Streeter Service: (none) Author Type: Registered Nurse Type: Progress Notes Filed: 10/13/2017 12:36 PM Note Text: Today's Date/Time: October 13, 2017, 12:36 PM Treatment Date: 10/13/17 Special Instructions: None. Laboratory: Labs complete Orders: [] Oncology Regimen 1: d8 c1 abraxane gemzar Orders reviewed. Dosage and calculations checked. and Orders released. [] RN Signature: Ashlee Streeter RN PROGRESS Observed: 10/13/2017 Status: COMPLETED Source: [place] [address]:10 PM [facility] [place] REPOSITORY HNO ID: [id number] Author: Jose Eduardo Cobb (Learning Engineer) Reyes Service: (none) Author Type: Nurse Practitioner Type: Progress Notes Filed: 10/13/2017 2:06 PM Note Text: Nurse Practitioner Established Patient Visit Attending Physician: Dr. Fermin CC: follow up visit while receiving chemotherapy for pancreatic adenocarcinoma. HPI: Mr. Newell has the following relevant history: ? Starting December 2016, symptoms of abdominal pain. ? May 2017: Diagnosis of gallstone pancreatitis with pancreatic pseudocysts. EGD guided cystogastrostomy was performed because of pyloric narrowing from the pseudocyst. ? Jul 2017: Cystogastrostomy stent removed. ? Aug 24, 2017: Laparoscopic cholecystectomy. Final pathology showed chronic cholecystitis. ? Had postcholecystectomy pancreatitis, evaluation for which revealed a pancreatic tail lesion as well. ? September 19, 2017: EUS-guided FNA of pancreatic lesion confirmed adenocarcinoma. ? Reviewed at our multidisciplinary PancreatoBiliary Tumor Board: Consensus for upfront chemotherapy followed by attempt at resection, with the caveat that the cystogastrostomy may have led to cancer spillage. ? October 06: Started gemcitabine/nab-paclitaxel Current treatment: gemcitabine/nab-paclitaxel, s/p C1D1 (10/06/17). Starting October 06, 2017 PMH: No remarkable comorbidities. Medicines, allergies reviewed, as noted. 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 They have 3 children. FH: Sister had breast cancer. IH: Here today for f/u after first dose of gem/abraxane. He continues to have a lot of nausea (pre-dates treatment), which is worse at night. Poor PO intake due to nausea. He also continues to have LUQ pain which radiates to his back and left shoulder . He is taking 10mg of oxy before bed and sleeps though the night. He usually does not take pain meds during the day. When he takes his pain meds at night, he is in a significant amount of pain. He is also taking zyprexa 5mg at night. [place] like he had the flu (body aches and fatigue) on days 3-4 after treatment. Has constipation, takes mag citrate if he doesn't have a BM in 3 days. No fever. No neuropathy. Anxiety which has worsened since his diagnosis. ECOG PS is 1. ROS: A complete ROS is otherwise negative. On Exam: Blood pressure 122/69, pulse 78, temperature 37 ?C (98.6 ?F), temperature source Oral, resp. rate 18, weight 110.8 kg (244 lb 3.2 oz), SpO2 100 %. In no distress. No pallor icterus or cyanosis. Present with HEENT: Normal. lungs Good b/l air entry. No additional sounds. Heart: RRR. No m/r/g Abd: Non-tender. No organomegaly or free fluid. Skin: No rash. Neuro: No focal neurologic findings. Psych: Normal affect. Labs: Component Latest Ref Rng AND Units 10/06/2017 10/13/2017 Protein, Total 6.3 - 8.0 g/dL 6.4 6.1 (L) Albumin 3.9 - 4.9 g/dL 3.0 (L) 2.9 (L) Calcium 8.5 - 10.2 mg/dL 8.5 8.4 (L) Bilirubin, Total 0.2 - 1.3 mg/dL 0.6 0.4 Alkaline Phosphatase 36 - 108 U/L 214 (H) 224 (H) AST 14 - 40 U/L 31 40 Glucose 74 - 99 mg/dL 185 (H) 131 (H) BUN 9 - 24 mg/dL 8 (L) 13 Creatinine 0.73 - 1.22 mg/dL 0.58 (L) 0.62 (L) Sodium 136 - 144 mmol/L 139 141 Potassium 3.7 - 5.1 mmol/L 3.8 3.7 Chloride 97 - 105 mmol/L 103 102 CO2 22 - 30 mmol/L 28 28 Anion Gap 9 - 18 mmol/L 8 (L) 11 ALT 10 - 54 U/L 25 31 eGFR- >60 >60 eGFR-All Other Races . >60 >60 WBC 3.70 - 11.00 k/uL 11.04 (H) 8.06 RBC 4.20 - 6.00 m/uL 3.86 (L) 3.53 (L) Hemoglobin 13.0 - 17.0 g/dL 10.7 (L) 9.8 (L) Hematocrit 39.0 - 51.0 % 32.8 (L) 29.7 (L) MCV 80.0 - 100.0 fL 85.0 84.1 MCH 26.0 - 34.0 pG 27.7 27.8 MCHC 30.5 - 36.0 g/dL 32.6 33.0 RDW-CV 11.5 - 15.0 % 14.8 14.4 Platelet Count 150 - 400 k/uL 482 (H) 319 MPV 9.0 - 12.7 fL 10.4 10.5 Absol Gran Count 1.45 - 7.50 k/uL 8.26 (H) 5.66 Absolute nRBC <0.01 k/uL <0.01 <0.01 Impression and Recommendations: Pancreatic adenocarcinoma. 1. Systemic chemotherapy:labs are within limits for continiuation of treatment today. Plan is to proceed with C1D8 today. RTC in 1 week for f/u. For nausea: Rx for zyprexa 2.5mg. To take 2 tabs every night and 1-2 tabs during the day as well- will help with anorexia as well. zofran ODT 8mg every 8 hours PRN Oral dex 4mg with breakfast and lunch on day 3 AND4 For body aches r/t treatment: Oral dex 4mg with breakfast and lunch on day 3 AND4 May take tylenol as well- keep below 3000mg per day Constipation: daily bowel regimen Senna 1-2 tabs BID mirilax 1-2 times per day Mag citrate PRN Pain: Oxycodone 5mg discussed taking pain meds on a consistent schedule 5mg every 4-6 hours during the day 10mg prior to bed time GERD: Increase protonix to BID Anxiety: Refill for Klonopin - takes 1-2 pills every couple of days Written instructions provided. They had multiple questions which were answered to their satisfaction. Jose Eduardo Chambers, CNC MAINTENANCE MECHANIC.[employer] October 13, 2017 CNOVSP Observed: 10/13/2017 Status: COMPLETED Source: [place] 11:10 AM [facility] REPOSITORY Visit (SP) Office ([facility]) PALFENIER,EVANS C ([id number]) 1960 M Date Time Provider Department 10/13/17 11:10 AM JOSE EDUARDO CHAMBERS ([employer]) [facility] During your visit today, we recorded the following information about you: Temperature Pulse Respiration Blood pressure 98.6 degrees 78/minute 18/minute 122/69 Weight 110.8 kg Jose Eduardo Chambers APRN.CNP 10/13/2017 12:20 PM Addendum For nausea zofran (ondansetron) 8mg every 8 hours as needed. zyprexa (Olanzapine) 5mg every night. May take 1 tab during the day as well. May cut in half if it causes too much drowsiness. Dexamethasone 4mg . Take one tab with breakfast and one tab with lunch on days 3 and 4. Take with food. This will help with nausea, help increase appetite, and help with body aches. For Bowels Increasing pain meds will increase constipation: Start Senna 1-2 tabs twice daily. Start with one twice daily. Increase to two tabs twice a day if one tab is not enough Miralax once or twice daily as needed Mag citrate as needed. Jose Eduardo Chambers APRN.ZEINA 10/13/2017 2:06 PM Signed Nurse Practitioner Established Patient Visit Attending Physician: Dr. Fermin CC: follow up visit while receiving chemotherapy for pancreatic adenocarcinoma. HPI: Mr. Newell has the following relevant history: ? Starting December 2016, symptoms of abdominal pain. ? May 2017: Diagnosis of gallstone pancreatitis with pancreatic pseudocysts. EGD guided cystogastrostomy was performed because of pyloric narrowing from the pseudocyst. ? Jul 2017: Cystogastrostomy stent removed. ? Aug 24, 2017: Laparoscopic cholecystectomy. Final pathology showed chronic cholecystitis. ? Had postcholecystectomy pancreatitis, evaluation for which revealed a pancreatic tail lesion as well. ? September 19, 2017: EUS-guided FNA of pancreatic lesion confirmed adenocarcinoma. ? Reviewed at our multidisciplinary PancreatoBiliary Tumor Board: Consensus for upfront chemotherapy followed by attempt at resection, with the caveat that the cystogastrostomy may have led to cancer spillage. ? October 06: Started gemcitabine/nab-paclitaxel Current treatment: gemcitabine/nab-paclitaxel, s/p C1D1 (10/06/17). Starting October 06, 2017 PMH: No remarkable comorbidities. Medicines, allergies reviewed, as noted. 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 They have 3 children. FH: Sister had breast cancer. IH: Here today for f/u after first dose of gem/abraxane. He continues to have a lot of nausea (pre-dates treatment), which is worse at night. Poor PO intake due to nausea. He also continues to have LUQ pain which radiates to his back and left shoulder . He is taking 10mg of oxy before bed and sleeps though the night. He usually does not take pain meds during the day. When he takes his pain meds at night, he is in a significant amount of pain. He is also taking zyprexa 5mg at night. [place] like he had the flu (body aches and fatigue) on days 3-4 after treatment. Has constipation, takes mag citrate if he doesn't have a BM in 3 days. No fever. No neuropathy. Anxiety which has worsened since his diagnosis. ECOG PS is 1. ROS: A complete ROS is otherwise negative. On Exam: Blood pressure 122/69, pulse 78, temperature 37 ?C (98.6 ?F), temperature source Oral, resp. rate 18, weight 110.8 kg (244 lb 3.2 oz), SpO2 100 %. In no distress. No pallor icterus or cyanosis. Present with HEENT: Normal. lungs Good b/l air entry. No additional sounds. Heart: RRR. No m/r/g Abd: Non-tender. No organomegaly or free fluid. Skin: No rash. Neuro: No focal neurologic findings. Psych: Normal affect. Labs: Component Latest Ref Rng AND Units 10/06/2017 10/13/2017 Protein, Total 6.3 - 8.0 g/dL 6.4 6.1 (L) Albumin 3.9 - 4.9 g/dL 3.0 (L) 2.9 (L) Calcium 8.5 - 10.2 mg/dL 8.5 8.4 (L) Bilirubin, Total 0.2 - 1.3 mg/dL 0.6 0.4 Alkaline Phosphatase 36 - 108 U/L 214 (H) 224 (H) AST 14 - 40 U/L 31 40 Glucose 74 - 99 mg/dL 185 (H) 131 (H) BUN 9 - 24 mg/dL 8 (L) 13 Creatinine 0.73 - 1.22 mg/dL 0.58 (L) 0.62 (L) Sodium 136 - 144 mmol/L 139 141 Potassium 3.7 - 5.1 mmol/L 3.8 3.7 Chloride 97 - 105 mmol/L 103 102 CO2 22 - 30 mmol/L 28 28 Anion Gap 9 - 18 mmol/L 8 (L) 11 ALT 10 - 54 U/L 25 31 eGFR- >60 >60 eGFR-All Other Races . >60 >60 WBC 3.70 - 11.00 k/uL 11.04 (H) 8.06 RBC 4.20 - 6.00 m/uL 3.86 (L) 3.53 (L) Hemoglobin 13.0 - 17.0 g/dL 10.7 (L) 9.8 (L) Hematocrit 39.0 - 51.0 % 32.8 (L) 29.7 (L) MCV 80.0 - 100.0 fL 85.0 84.1 MCH 26.0 - 34.0 pG 27.7 27.8 MCHC 30.5 - 36.0 g/dL 32.6 33.0 RDW-CV 11.5 - 15.0 % 14.8 14.4 Platelet Count 150 - 400 k/uL 482 (H) 319 MPV 9.0 - 12.7 fL 10.4 10.5 Absol Gran Count 1.45 - 7.50 k/uL 8.26 (H) 5.66 Absolute nRBC <0.01 k/uL <0.01 <0.01 Impression and Recommendations: Pancreatic adenocarcinoma. 1. Systemic chemotherapy:labs are within limits for continiuation of treatment today. Plan is to proceed with C1D8 today. RTC in 1 week for f/u. For nausea: Rx for zyprexa 2.5mg. To take 2 tabs every night and 1-2 tabs during the day as well- will help with anorexia as well. zofran ODT 8mg every 8 hours PRN Oral dex 4mg with breakfast and lunch on day 3 AND4 For body aches r/t treatment: Oral dex 4mg with breakfast and lunch on day 3 AND4 May take tylenol as well- keep below 3000mg per day Constipation: daily bowel regimen Senna 1-2 tabs BID mirilax 1-2 times per day Mag citrate PRN Pain: Oxycodone 5mg discussed taking pain meds on a consistent schedule 5mg every 4-6 hours during the day 10mg prior to bed time GERD: Increase protonix to BID Anxiety: Refill for Klonopin - takes 1-2 pills every couple of days Written instructions provided. They had multiple questions which were answered to their satisfaction. Jose Eduardo Chambers APRN.[employer] October 13, 2017 Referring Provider: ROCIO FERMIN [[id number]] Allergies As of Date: 10/13/2017 (No Known Allergies) Date Reviewed: 10/13/2017 Reviewed by: Charlene (Juan Jose) JUAN JOSE Mccullough - Fully Assessed Reason for Visit: Established Patient [175] Primary Visit Diagnosis:Pancreatic adenocarcinoma (HCC) [C25.9] Other Visit Diagnoses:Nausea [R11.0] Cancer associated pain [G89.3] Gastroesophageal reflux disease, esophagitis presence not specified [K21.9] Drug-induced constipation [K59.03] Anorexia [R63.0] Order(s):ondansetron orally disintegrating (ZOFRAN ODT) 8 mg disintegrating tabletTake 1 tablet by mouth every 8 hours as needed.Disp: 30 tabletRfl: 2 OLANZapine (ZYPREXA) 2.5 mg tablet1-2 tabs during the day and 1-2 times every night for nauseaDisp: 60 tabletRfl: 2 oxyCODONE IR (ROXICODONE) 5 mg immediate release tabletTake 1-2 tablets by mouth every 4 hours as needed for Pain for up to 14 days.Disp: 180 tabletRfl: [address] (PROTONIX) 40 mg tabletTake 1 tablet by mouth twice daily.Disp: 60 tabletRfl: 2 clonazePAM (KLONOPIN) 1 mg tabletTake 1 tablet by mouth twice daily as needed for up to 30 days.Disp: 30 tabletRfl: 1 senna (SENNA LAXATIVE) 8.6 mg tabTake 1-2 tablets by mouth twice daily.Disp: 120 tabletRfl: 2 dexamethasone (DECADRON) 4 mg tabletTake one tab with an early breakfast and one tab with early lunch starting day 3 and 4. Take with foodDisp: 30 tabletRfl: 1 Prescriptions as of 10/13/2017 Sig: OXYCODONE 5 MG TABLET Take 1 tablet by mouth every * SUCRALFATE 100 MG/ML ORAL HOLLAND* Take 10 mL by mouth four time* AMLODIPINE 10 MG TABLET Take 1 tablet by mouth once d* [id number] 24,00* Take 3 capsules by mouth thre* ACETAMINOPHEN 325 MG TABLET Take 2 tablets by mouth every* Patient taking differently: Take 650 mg by mouth every 6 * ONDANSETRON 8 MG DISINTEGRATI* Take 1 tablet by mouth every * OLANZAPINE 2.5 MG TABLET 1-2 tabs during the day and 1* OXYCODONE 5 MG TABLET Take 1-2 tablets by mouth fahad* PANTOPRAZOLE 40 MG TABLET,DEL* Take 1 tablet by mouth twice * CLONAZEPAM 1 MG TABLET Take 1 tablet by mouth twice * SENNOSIDES 8.6 MG TABLET Take 1-2 tablets by mouth twi* DEXAMETHASONE 4 MG TABLET Take one tab with an early br* Problem List As Of Date 10/13/2017 Noted Resolved Loose body in knee, right knee [M23.41] INVALID FOR* Benign essential hypertension [I10] INVALID FOR* Obesity [E66.9] INVALID FOR* Tear of lateral meniscus of right knee [S83.281*INVALID FOR* Primary osteoarthritis of right knee [M17.11] INVALID FOR* Pancreatic pseudocyst [K86.3] INVALID FOR* WILVER (generalized anxiety disorder) [F41.1] INVALID FOR* Gallstones [K80.20] INVALID FOR*08/24/2017 More... Pancreatitis [K85.90] INVALID FOR*08/24/2017 More... Pancreatitis [K85.90] INVALID FOR* Malnutrition of moderate degree (HCC) [E44.0] INVALID FOR* Obesity, Class I, BMI 30-34.9 E66.9 [E66.9] INVALID FOR* Nicotine use disorder, F17.2 [F17.200] INVALID FOR* Pancreatic adenoma [D13.6] INVALID FOR*09/22/2017 Pancreatic adenocarcinoma (HCC) [C25.9] INVALID FOR* Admission for fitting of port-a-cath [Z45.2] INVALID FOR* More... Other instructions from your clinician: For nausea zofran (ondansetron) 8mg every 8 hours as needed. zyprexa (Olanzapine) 5mg every night. May take 1 tab during the day as well. May cut in half if it causes too much drowsiness. Dexamethasone 4mg . Take one tab with breakfast and one tab with lunch on days 3 and 4. Take with food. This will help with nausea, help increase appetite, and help with body aches. For Bowels Increasing pain meds will increase constipation: Start Senna 1-2 tabs twice daily. Start with one twice daily. Increase to two tabs twice a day if one tab is not enough Miralax once or twice daily as needed Mag citrate as needed. Encounter Status:Closed by JOSE EDUARDO CHAMBERS CNP on 10/13/[address] + CBC Collected: 10/13/2017 Status: F Source: [place] 11:03 AM [facility] REPOSITORY TYPE CODE TESTS RESULT OUT OF REFERENCE UNITS RANGE LAB WBC 3.70-11.00 k/uL WBC 8.06 LAB RBC 4.20-6.00 m/uL Low RBC 3.53 LAB HGB 13.0-17.0 g/dL Low Hemoglobin 9.8 LAB HCT 39.0-51.0 % Low Hematocrit 29.7 LAB MCV 80.0-100.0 fL MCV 84.1 LAB MCH 26.0-34.0 pG MCH 27.8 LAB MCHC 30.5-36.0 g/dL MCHC 33.0 LAB RDWCV 11.5-15.0 % RDW-CV 14.4 LAB PLTCT 150-400 k/uL Platelet Count 319 LAB MPV 9.0-12.7 fL MPV 10.5 LAB ABGRAN 1.45-7.50 k/uL Absol Gran Count 5.66 LAB ABSNUC <0.01 k/uL Absolute nRBC <0.01 Performed By: #### AGCCBC, CMP #### [facility] [address] [address] COMP METABOLIC PANEL Collected: 10/13/2017 Status: F Source: [place] 11:03 [facility] REPOSITORY TYPE CODE TESTS RESULT OUT OF REFERENCE UNITS RANGE LAB TP 6.3-8.0 g/dL Low Protein, Total 6.1 LAB ALB 3.9-4.9 g/dL Low Albumin 2.9 LAB CA 8.5-10.2 mg/dL Low Calcium, Total 8.4 LAB TBIL 0.2-1.3 mg/dL Bilirubin, Total 0.4 LAB ALKP 36-108 U/L Alkaline High Phosphatase 224 LAB AST 14-40 U/L AST 40 LAB GLU 74-99 mg/dL Glucose High 131 Result Comment: The [place] Diabetes Association (ADA) provides guidance for cutoff values for fasting glucose and random glucose. The ADA defines fasting as no caloric intake for at least 8 hours. Fas ting plasma glucose results between 100 to 125 mg/dL indicate increased risk for diabetes (prediabetes). Fasting plasma glucose results greater than or equal to 126 mg/dL meet the criteria for diagnosis of diabetes. In the absence of unequivocal hyperglycemia, results should be confirmed by repeat testing. In a patient with classic symptoms of hyperglycemia or hyperglycemic crisis, random plasma glucose results greater than or equal to 200 mg/dL meet the criteria for diagnosis of diabetes. Reference: Standards of Medical Care in Diabetes 2016, [place] Diabetes Association. Diabetes Care. 2016.39(Suppl 1). LAB BUN 9-24 mg/dL BUN 13 LAB CRET 0.73-1.22 mg/dL Creatinine Low 0.62 LAB NA 136-144 mmol/L Sodium 141 LAB K 3.7-5.1 mmol/L Potassium 3.7 LAB CL 97-105 mmol/L Chloride 102 LAB CO2 22-30 mmol/L CO2 28 LAB AGAP 9-18 mmol/L Anion Gap 11 LAB ALT 10-54 U/L ALT 31 LAB GFRAA eGFR- Amer. >60 LAB GFRNAA . eGFR-All Other Races >60 Result Comment: eGFR (Estimated GFR) Units of measure: mL/min/1.73 meters squared eGFR is derived from the reexpressed MDRD Study equation using the following parameters: serum creatinine, age, gender and race. The creatinine assay has been calibrated to be traceable to IDMS. An eGFR <60 mL/min/1.73m2 for >3 months is consistent with chronic kidney disease. Refer to KDOQI guidelines for clinical interpretation. In patients with unstable renal function, e.g. those with acute kidney injury, the eGFR may not accurately reflect actual GFR. Performed By: #### AGCCBC, CMP #### [facility] [address] [place], [place] [address] PROGRESS Observed: 10/11/2017 Status: COMPLETED Source: [place] 1:48 PM [facility] REPOSITORY HNO ID: [id number] Author: Felicia Austin (Sw) Service: (none) Author Type: Lathing Supervisor Type: Progress Notes Filed: 10/13/2017 12:21 PM Note Text: PSYCHOSOCIAL ASSESSMENT Date of Service: October 11, 2017 Evans Newell is a 57 year old male being contacted via phone for initial social work assessment. Diagnosis: Pancreatic Cancer Primary Oncologist: Dr. Fermin Radiation Oncologist: SUSANNA Goals of Care: Curative intent Family History of Cancer: Yes, parents and a sister *SUPPORT NETWORK: Marital status: Parent(s): Mother is living and Father is living Child/Children: Yes. How many? 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 No *EMPLOYMENT/FINANCIAL/HEALTH INSURANCE: Employment: Short Term Disability Income source: Salary Insurance: [employer] Card Prescription coverage: Yes Is the patient appropriate for referral to [facility] COBRA Assistance program? No Financial Distress: Yes, What assistance is needed? Other--mortgage, etc Velma: No *LIVING ARRANGEMENTS: Type: House- independent ranch Resides with: Family , daughter in law *FUNCTIONAL STATUS: Cognitive limitations: none Physical limitations: none Language barrier: No Hearing Impaired: No Speech Impaired: No Visual Impairments: No Literacy Issues: No Special considerations/accommodations needed: No MENTAL HEALTH HISTORY: No History of combat/trauma: No Substance Use and Treatment History: denied History of Abuse: No Issues with: ? Sleep:No ? Eating:Yes ? Exercising: Yes ? Stress Management: Yes *ADVANCE DIRECTIVES/LEGAL DOCUMENTS: Living Will: Yes Health Care Durable Power of Farmworker Dairy: Yes Scanned into EPIC: Not addressed during this encounter Guardianship: NA Scanned into EPIC:NA *COPING STATUS: Coping Strengths: supportive relationships with immediate family spirituality hopefulness able to follow direction consistently over time able to communicate effectively Current affect/mood: appropriate Adjustment to diagnosis: reflecting understanding and responding appropriately *BARRIERS/CARE CHALLENGES: Limited/No Income Are barriers/care challenges identified likely to have an impact on the patient's quality of life during treatment? Yes Practical Concerns *CLINICAL IMPRESSION: 57 years old male from [place], [place] who was informed that he had Pancreatic Cancer about three weeks ago. He sounds as if he is coping appropriately at this time. He shares that he has strong martha as well as good familial support. He is currently off from work and anticipates some financial concerns. Education offered re: Financial Assistance for Pancreatic Cancer Patients, Celina Fields and Berkley Haas. We also reviewed the [facility] and [facility]. INTERVENTIONS/REFERRALS TO BE PROVIDED: Referral to community resource Resources and Referrals: ? Internal: [facility] ? External: [facility] PLAN: Follow up appointment with TANIA in: [place] Pager: [phone] CNSW Observed: 10/11/2017 Status: COMPLETED Source: [place] 12:00 AM [facility] Social Work ([facility]) EVANS NEWELL ([id number]) 1960 M Date Time Provider Department 10/11/17 FELICIA AUSTIN (TANIA) [facility] During your visit today, we recorded the following information about you: BAY Lanza 10/13/2017 12:21 PM Signed PSYCHOSOCIAL ASSESSMENT Date of Service: October 11, 2017 Evans Newell is a 57 year old male being contacted via phone for initial social work assessment. Diagnosis: Pancreatic Cancer Primary Oncologist: Dr. Fermin Radiation Oncologist: SUSANNA Goals of Care: Curative intent Family History of Cancer: Yes, parents and a sister *SUPPORT NETWORK: Marital status: Parent(s): Mother is living and Father is living Child/Children: Yes. How many? 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 No *EMPLOYMENT/FINANCIAL/HEALTH INSURANCE: Employment: Short Term Disability Income source: Salary Insurance: Blue Card Prescription coverage: Yes Is the patient appropriate for referral to [facility] COBRA Assistance program? No Financial Distress: Yes, What assistance is needed? Other--mortgage, etc : No *LIVING ARRANGEMENTS: Type: House- independent ranch Resides with: Family , daughter in law *FUNCTIONAL STATUS: Cognitive limitations: none Physical limitations: none Language barrier: No Hearing Impaired: No Speech Impaired: No Visual Impairments: No Literacy Issues: No Special considerations/accommodations needed: No MENTAL HEALTH HISTORY: No History of combat/trauma: No Substance Use and Treatment History: denied History of Abuse: No Issues with: ? Sleep:No ? Eating:Yes ? Exercising: Yes ? Stress Management: Yes *ADVANCE DIRECTIVES/LEGAL DOCUMENTS: Living Will: Yes Health Care Durable Power of Farmworker Dairy: Yes Scanned into [employer]: Not addressed during this encounter Guardianship: NA Scanned into EPIC:NA *COPING STATUS: Coping Strengths: supportive relationships with immediate family spirituality hopefulness able to follow direction consistently over time able to communicate effectively Current affect/mood: appropriate Adjustment to diagnosis: reflecting understanding and responding appropriately *BARRIERS/CARE CHALLENGES: Limited/No Income Are barriers/care challenges identified likely to have an impact on the patient's quality of life during treatment? Yes Practical Concerns *CLINICAL IMPRESSION: 57 years old male from [place], [place] who was informed that he had Pancreatic Cancer about three weeks ago. He sounds as if he is coping appropriately at this time. He shares that he has strong martha as well as good familial support. He is currently off from work and anticipates some financial concerns. Education offered re: Financial Assistance for Pancreatic Cancer Patients, Celina Fields and [employer]. We also reviewed the [facility] and [facility]. INTERVENTIONS/REFERRALS TO BE PROVIDED: Referral to community resource Resources and Referrals: ? Internal: [facility] ? External: [facility] PLAN: Follow up appointment with TANIA in: [place] Pager: [phone] Allergies As of Date: 10/11/2017 (No Known Allergies) Date Reviewed: 10/06/2017 Reviewed by: Cici Jonas) NICKI Aguillon - Fully Assessed Prescriptions as of 10/11/2017 Sig: OXYCODONE 5 MG TABLET Take 1 tablet by mouth every * X ONDANSETRON HCL 4 MG TABLET Take 4 mg by mouth every 8 ho* X OLANZAPINE 5 MG TABLET Take 1 tablet by mouth at bed* SUCRALFATE 100 MG/ML ORAL HOLLAND* Take 10 mL by mouth four time* X PANTOPRAZOLE 40 MG TABLET,DEL* Take 1 tablet by mouth once d* X PROMETHAZINE 25 MG TABLET Take 1 tablet by mouth every * AMLODIPINE 10 MG TABLET Take 1 tablet by mouth once d* X CLONAZEPAM 1 MG TABLET Take 1 tablet by mouth twice * Patient taking differently: Take 1 mg by mouth as needed * BCPIIE-[id number]-[id number] 24,00* Take 3 capsules by mouth thre* ACETAMINOPHEN 325 MG TABLET Take 2 tablets by mouth every* Patient taking differently: Take 650 mg by mouth every 6 * Problem List As Of Date 10/11/2017 Noted Resolved Loose body in knee, right knee [M23.41] INVALID FOR* Benign essential hypertension [I10] INVALID FOR* Obesity [E66.9] INVALID FOR* Tear of lateral meniscus of right knee [S83.281*INVALID FOR* Primary osteoarthritis of right knee [M17.11] INVALID FOR* Pancreatic pseudocyst [K86.3] INVALID FOR* WILVER (generalized anxiety disorder) [F41.1] INVALID FOR* Gallstones [K80.20] INVALID FOR*08/24/2017 More... Pancreatitis [K85.90] INVALID FOR*08/24/2017 More... Pancreatitis [K85.90] INVALID FOR* Malnutrition of moderate degree (HCC) [E44.0] INVALID FOR* Obesity, Class I, BMI 30-34.9 E66.9 [E66.9] INVALID FOR* Nicotine use disorder, F17.2 [F17.200] INVALID FOR* Pancreatic adenoma [D13.6] INVALID FOR*09/22/2017 Pancreatic adenocarcinoma (HCC) [C25.9] INVALID FOR* Admission for fitting of port-a-cath [Z45.2] INVALID FOR* More... Encounter Status:Closed by FELICIA AUSTIN on 10/13/17 PROGRESS Observed: 10/06/2017 Status: COMPLETED Source: [place] 11:04 AM [facility] REPOSITORY HNO ID: [id number] Author: Elisha Jonas) Gehlfuss, RN Service: (none) Author Type: Registered Nurse Type: Progress Notes Filed: 10/06/2017 11:26 AM Note Text: ONCOLOGY PATIENT EDUCATION NOTE TOPIC: Chemotherapy, Medications: Abraxane/Gemcitabine READINESS TO LEARN: COGNITIVE ABILITY: Alert and oriented MOTIVATION TO LEARN: Eager FAMILY SUPPORT: High - Very involved in pt care INSTRUCTION PROVIDED TO: Patient and Spouse INSTRUCTION PROVIDED BY: Nurse Coordinator PATIENT LEARNS BEST BY: Individual Instruction Written Instruction - Hand-outs Verbal Instruction Multiple Methods FACTORS AFFECTING LEARNING: None PHYSICAL LIMITATIONS AFFECTING LEARNING: None LEARNING RESPONSE DIAGNOSIS: pancreatic adenocarcinoma METHOD OF INSTRUCTION: Individual instruction Written instruction - handouts Verbal instruction PATIENT/FAMILY RESPONSE: Verbalizes understanding of: CHEMOTHERAPY-Regimen, toxicity and side effects INFECTION MANAGEMENT-Signs and symptoms of an infection and importance of contacting the physician MEDICATION SIDE EFFECTS-Side effects associated with the medication that warrant a call to the physician SYMPTOM MANAGEMENT-Correct actions to take to manage symptoms associated with his/her disease/illness WORSENING CONDITION-Signs and symptoms of a worsening condition that warrant a call to the physician Information received as demonstrated by interest and questions FOLLOW UP PLAN: Patient instructed to call with any further issues Contact information given. SUPPLEMENTAL MATERIAL: Written material was provided at this visit with the following information: My Journey Binder and Bag that includes: Printed sheets of chemotherapy agents and common side effects. Printed sheet with highlighted care team and important phone numbers specifically for Dr. Rodriguez office/after hours/weekends/and holidays with instructions to ask for the oncology fellow controller mechanic. Printed sheets for home management of nausea/vomiting, diarrhea/constipation, mouth sores, fatigue, nail and skin care. Discussed the importance of adequate hydration focusing on 2 quarts of non caffeine fluid per day , well balanced diet with small frequent meals throughout the day, and the benefits of daily exercise. Thermometer with instructions to call with any temperature of 100.4 or higher or symptoms of a neutropenic fever such as shaking and shivering. - Side effect management information was provided/discussed including but not limited to: abdominal discomfort, anemia, appetite changes, arthralgia, bowel habit changes, diet, electrolyte disturbances, fatigue, hair loss, headache, hypersensitivity reaction, infection, mouth hygiene, mucositis, myalgia, nausea/vomitting, neuropathy, neutropenia, peripheral neuropathy, rash, taste changes, thrombocytopenia YES - Important phone numbers and contacts during and after hours. YES - Symptoms that require immediate assistance. YES - Preventing infection. YES - Treatment schedule and confirmation of appointment times. YES; patient is starting treatments today and understands chemo regimen is weekly for 3 weeks with 1 week off per cycle. - Available support groups. YES - The importance of contraception during the course of chemotherapy NA - Prescriptions for anti-emetics or treatment prep was given: Zofran and Zyprexa. YES - Neutropenic fever protocol discussed with patient, which included the importance of reporting any fever of 100.4F (38.0C) or greater to the healthcare team as noted on the provided wallet card and/or magnet. YES Time Spent: 30 minutes REFERRAL (RECOMMENDATION): Nutrition, Social Work and Financial Navigator Diane Mcdonnell RN, BSN GI Microsystems Engineer ABS GRAN CT + CBC Collected: 10/06/2017 Status: F Source: [place] 9:02 AM [facility] REPOSITORY TYPE CODE TESTS RESULT OUT OF REFERENCE UNITS RANGE LAB WBC 3.70-11.00 k/uL WBC High 11.04 LAB RBC 4.20-6.00 m/uL Low RBC 3.86 LAB HGB 13.0-17.0 g/dL Low Hemoglobin 10.7 LAB HCT 39.0-51.0 % Low Hematocrit 32.8 LAB MCV 80.0-100.0 fL MCV 85.0 LAB MCH 26.0-34.0 pG MCH 27.7 LAB MCHC 30.5-36.0 g/dL MCHC 32.6 LAB RDWCV 11.5-15.0 % RDW-CV 14.8 LAB PLTCT 150-400 k/uL Platelet High Count 482 LAB MPV 9.0-12.7 fL MPV 10.4 LAB ABGRAN 1.45-7.50 k/uL Absol High Gran Count 8.26 LAB ABSNUC <0.01 k/uL Absolute nRBC <0.01 Performed By: #### AGCCBC, CMP #### [facility] [address] [place], [place] [address] COMP METABOLIC PANEL Collected: 10/06/2017 Status: F Source: [place] 9:02 AM [facility] REPOSITORY TYPE CODE TESTS RESULT OUT OF REFERENCE UNITS RANGE LAB TP 6.3-8.0 g/dL Protein, Total 6.4 LAB ALB 3.9-4.9 g/dL Low Albumin 3.0 LAB CA 8.5-10.2 mg/dL Calcium, Total 8.5 LAB TBIL 0.2-1.3 mg/dL Bilirubin, Total 0.6 LAB ALKP 36-108 U/L Alkaline High Phosphatase 214 LAB AST 14-40 U/L AST 31 LAB GLU 74-99 mg/dL Glucose High 185 Result Comment: The [place] Diabetes Association (ADA) provides guidance for cutoff values for fasting glucose and random glucose. The ADA defines fasting as no caloric intake for at least 8 hours. Fas ting plasma glucose results between 100 to 125 mg/dL indicate increased risk for diabetes (prediabetes). Fasting plasma glucose results greater than or equal to 126 mg/dL meet the criteria for diagnosis of diabetes. In the absence of unequivocal hyperglycemia, results should be confirmed by repeat testing. In a patient with classic symptoms of hyperglycemia or hyperglycemic crisis, random plasma glucose results greater than or equal to 200 mg/dL meet the criteria for diagnosis of diabetes. Reference: Standards of Medical Care in Diabetes 2016, [place] [employer]. Diabetes Care. 2016.39(Suppl 1). LAB BUN 9-24 mg/dL BUN Low 8 LAB CRET 0.73-1.22 mg/dL Creatinine Low 0.58 LAB NA 136-144 mmol/L Sodium 139 LAB K 3.7-5.1 mmol/L Potassium 3.8 LAB CL 97-105 mmol/L Chloride 103 LAB CO2 22-30 mmol/L CO2 28 LAB AGAP 9-18 mmol/L Anion Gap Low 8 LAB ALT 10-54 U/L ALT 25 LAB GFRAA eGFR- Amer. >60 LAB GFRNAA . eGFR-All Other Races >60 Result Comment: eGFR (Estimated GFR) Units of measure: mL/min/1.73 meters squared eGFR is derived from the reexpressed MDRD Study equation using the following parameters: serum creatinine, age, gender and race. The creatinine assay has been calibrated to be traceable to IDMS. An eGFR <60 mL/min/1.73m2 for >3 months is consistent with chronic kidney disease. Refer to KDOQI guidelines for clinical interpretation. In patients with unstable renal function, e.g. those with acute kidney injury, the eGFR may not accurately reflect actual GFR. Performed By: #### AGCCBC, CMP #### [facility] [employer] [address] [place], [place] [address] PROGRESS Observed: 10/06/2017 Status: COMPLETED Source: [place] 8:27 AM [facility] REPOSITORY HNO ID: [id number] Author: Betty SamsonRn) NICKI Hearn Service: (none) Author Type: Registered Nurse Type: Progress Notes Filed: 10/06/2017 8:28 AM Note Text: Today's Date/Time: October 06, 2017, 8:27 AM Treatment Date: 10/06/17 Special Instructions: Consent verified in Epic: Chemo: Yes and Needs height and weight verified Laboratory: Draw labs labels on chart Orders: [x] Oncology Regimen 1: C1 D1 Gemzar/Abraxane ( paged to sign orders) - Orders reviewed. Dosage and calculations checked. and Orders NOT released: Treatment RN to release . [] Oncology Regimen 2: N/A [] Non chemo 1: N/A [] Non chemo 2: N/A [] Non chemo 3: N/A [] BMT: N/A [] BMT Support: N/A [] TCI Clinical Trials: N/A [] Paper Orders: N/A RN Signature: Betty Hearn RN CNCNPATED Observed: 10/06/2017 Status: COMPLETED Source: [place] 12:00 AM [facility] REPOSITORY Education ([facility]) EVANS NEWELL ([id number]) 1960 M Date Time Provider Department 10/06/17 ELSIHA MCDONNELL (RN) [id number] Reason for Visit: First Time Treatment Education [8319] Progress Notes: Elisha Mcdonnell RN, RN 10/06/2017 11:26 AM Signed ONCOLOGY PATIENT EDUCATION NOTE TOPIC: Chemotherapy, Medications: Abraxane/Gemcitabine READINESS TO LEARN: COGNITIVE ABILITY: Alert and oriented MOTIVATION TO LEARN: Eager FAMILY SUPPORT: High - Very involved in pt care INSTRUCTION PROVIDED TO: Patient and Spouse INSTRUCTION PROVIDED BY: Nurse Coordinator PATIENT LEARNS BEST BY: Individual Instruction Written Instruction - Hand-outs Verbal Instruction Multiple Methods FACTORS AFFECTING LEARNING: None PHYSICAL LIMITATIONS AFFECTING LEARNING: None LEARNING RESPONSE DIAGNOSIS: pancreatic adenocarcinoma METHOD OF INSTRUCTION: Individual instruction Written instruction - handouts Verbal instruction PATIENT/FAMILY RESPONSE: Verbalizes understanding of: CHEMOTHERAPY-Regimen, toxicity and side effects INFECTION MANAGEMENT-Signs and symptoms of an infection and importance of contacting the physician MEDICATION SIDE EFFECTS-Side effects associated with the medication that warrant a call to the physician SYMPTOM MANAGEMENT-Correct actions to take to manage symptoms associated with his/her disease/illness WORSENING CONDITION-Signs and symptoms of a worsening condition that warrant a call to the physician Information received as demonstrated by interest and questions FOLLOW UP PLAN: Patient instructed to call with any further issues Contact information given. SUPPLEMENTAL MATERIAL: Written material was provided at this visit with the following information: My Journey Binder and Bag that includes: Printed sheets of chemotherapy agents and common side effects. Printed sheet with highlighted care team and important phone numbers specifically for Dr. Rodriguez office/after hours/weekends/and holidays with instructions to ask for the oncology fellow controller mechanic. Printed sheets for home management of nausea/vomiting, diarrhea/constipation, mouth sores, fatigue, nail and skin care. Discussed the importance of adequate hydration focusing on 2 quarts of non caffeine fluid per day , well balanced diet with small frequent meals throughout the day, and the benefits of daily exercise. Thermometer with instructions to call with any temperature of 100.4 or higher or symptoms of a neutropenic fever such as shaking and shivering. - Side effect management information was provided/discussed including but not limited to: abdominal discomfort, anemia, appetite changes, arthralgia, bowel habit changes, diet, electrolyte disturbances, fatigue, hair loss, headache, hypersensitivity reaction, infection, mouth hygiene, mucositis, myalgia, nausea/vomitting, neuropathy, neutropenia, peripheral neuropathy, rash, taste changes, thrombocytopenia YES - Important phone numbers and contacts during and after hours. YES - Symptoms that require immediate assistance. YES - Preventing infection. YES - Treatment schedule and confirmation of appointment times. YES; patient is starting treatments today and understands chemo regimen is weekly for 3 weeks with 1 week off per cycle. - Available support groups. YES - The importance of contraception during the course of chemotherapy NA - Prescriptions for anti-emetics or treatment prep was given: Zofran and Zyprexa. YES - Neutropenic fever protocol discussed with patient, which included the importance of reporting any fever of 100.4F (38.0C) or greater to the healthcare team as noted on the provided wallet card and/or magnet. YES Time Spent: 30 minutes REFERRAL (RECOMMENDATION): Nutrition, Social Work and Financial Navigator Diane Mcdonnell RN, BSN GI Microsystems Engineer During your visit today, we recorded the following information about you: Allergies As of Date: 10/06/2017 (No Known Allergies) Date Reviewed: 10/05/2017 Reviewed by: Ivanna SamsonRn) NICKI Richardson - Fully Assessed Prescriptions as of 10/06/2017 Sig: ONDANSETRON HCL 4 MG TABLET Take 4 mg by mouth every 8 ho* OXYCODONE 5 MG TABLET Take 1 tablet by mouth every * OLANZAPINE 5 MG TABLET Take 1 tablet by mouth at bed* PANTOPRAZOLE 40 MG TABLET,DEL* Take 1 tablet by mouth once d* SUCRALFATE 100 MG/ML ORAL HOLLAND* Take 10 mL by mouth four time* PROMETHAZINE 25 MG TABLET Take 1 tablet by mouth every * AMLODIPINE 10 MG TABLET Take 1 tablet by mouth once d* CLONAZEPAM 1 MG TABLET Take 1 tablet by mouth twice * Patient taking differently: Take 1 mg by mouth as needed * [id number] 24,00* Take 3 capsules by mouth thre* ACETAMINOPHEN 325 MG TABLET Take 2 tablets by mouth every* Patient taking differently: Take 650 mg by mouth every 6 * Encounter Status:Closed by ELISHA MCDONNELL on 10/06/17 PT ED Observed: 10/05/2017 Status: COMPLETED Source: [place] 2:56 PM [facility] REPOSITORY HNO ID: [id number] Author: Humberto Harmon RN Service: Nursing Author Type: Registered Nurse Type: Patient Education Filed: 10/05/2017 2:57 PM Note Text: POST OP LEARNING RESPONSE INSTRUCTION PROVIDED TO: Patient and family member METHOD OF INSTRUCTION: Written instruction - handouts Verbal instruction PATIENT / FAMILY RESPONSE: Verbalizes understanding of: POST-OPERATIVE INSTRUCTIONS-Correct actions to take to reduce postoperative complications FOLLOW-UP PLAN: Patient instructed to call with any further issues SUPPLEMENTAL MATERIAL: None REFERRAL (RECOMMENDATION): None Electronically Signed By: Humberto Harmon RN In Department: [facility] ANES POST Observed: 10/05/2017 Status: COMPLETED Source: [place] 2:31 PM CLINIC OTHER CAMPUS REPOSITORY HNO ID: [id number] Author: Todd Shannon MD Service: Anesthesiology Author Type: Anesthesiologist Type: Anesthesia PostOp Filed: 10/05/2017 2:32 PM Note Text: POST ANESTHESIA EVALUATION NOTE SERVICE DATE: 10/05/2017 SERVICE TIME: 1430 : 1960 Vitals: 10/05/17 1153 10/05/17 1405 Temp: 36.6 ?C (97.9 ?F) 36.6 ?C (97.9 ?F) 10/05/17 1153 10/05/17 1405 BP: 113/68 116/75 10/05/17 1153 10/05/17 1405 10/05/17 1415 Pulse: 82 81 81 10/05/17 11510/05/17 1405 10/05/17 1415 Resp: 16 16 16 10/05/17 11510/05/17 1405 10/05/17 1415 SpO2: 97% 100% 100% Validated Vital Signs: Yes POST ANES STATUS: No apparent anesthetic complications. The patient is appropriately hydrated with stable respiratory and cardiovascular status. Patient has safe and adequate airway control. The patient has appropriate pain relief and no significant post operative nausea or vomiting. The patient has achieved baseline mental status. Further assessment by Anesthesia Service: None Other Remarks: SIGNATURE: Todd Shannon MD PATIENT NAME: Evans Newell DATE: October 05, 2017 TIME: 2:31 PM PAGER/CONTACT #: NURSING PROG Observed: 10/05/2017 Status: COMPLETED Source: [place] 2:05 PM [facility] REPOSITORY HNO ID: [id number] Author: Ivanna (Rn) NICKI Richardson Service: Nursing Author Type: Registered Nurse Type: Nursing Progress Note Filed: 10/05/2017 2:59 PM Note Text: 1405 pt to PACU. Awakes easily to VS remains on SFM 6L, sats 98-99%. R CW john cath Drsg DANDI. PIV DANDI. VSS No s/sx of distress. 1445 report given to Humberto CACERES in PACU. BRIEF OP NOT Observed: 10/05/2017 Status: COMPLETED Source: [place] 2:04 PM [facility] REPOSITORY HNO ID: [id number] Author: Haley Avina Service: General Surgery Author Type: Physician Type: Brief Op Note Filed: 10/05/2017 2:56 PM Note Text: BRIEF OPERATIVE / PROCEDURE NOTE LOG ID: [id number] SURGERY/PROCEDURE DATE: 10/05/2017 INCISION/PROCEDURE START TIME: 1:39 PM INCISION CLOSE/PROCEDURE END TIME: 1:57 PM SURGEON(S)/PROCEDURALIST(S) AND AIRLINE LOUNGE RECEPTIONIST(S): Surgeon(s) and Role: * Haley Avina - Primary No Additional Staff SURGERY/PROCEDURE(S): Rt IJ port ANESTHESIA: General FINDINGS: see report ESTIMATED BLOOD LOSS: min SPECIMENS: None COMPLICATIONS: None PRE-OP/PRE-PROCEDURE DIAGNOSIS: pancreatic cancer POST-OP/POST-PROCEDURE DIAGNOSIS: Admission for fitting of port-a-cath Same # [id number] SIGNATURE: Haley Avina MD PATIENT NAME: Evans Newell DATE: October 05, 2017 TIME: 2:04 PM PAGER/CONTACT #: ANES PREOP Observed: 10/05/2017 Status: COMPLETED Source: [place] 12:22 PM CLINIC OTHER CAMPUS REPOSITORY HNO ID: [id number] Author: Todd Shannon MD Service: Anesthesiology Author Type: Anesthesiologist Type: Anesthesia PreOp Filed: 10/05/2017 12:23 PM Note Text: ANESTHESIOLOGY DAY OF SURGERY NOTE SERVICE DATE: 10/05/2017 SERVICE TIME: 1222 : 1960 Procedure(s) (LRB): INSERTION CATHETER PORT-A-CATH WITH C-ARM (N/A) Surgeon(s): Haley Avina Estimated body mass index is 30.17 kg/m? as calculated from the following: Height as of 10/02/17: 192.4 cm (6' 3.75). Weight as of 10/02/17: 111.7 kg (246 lb 3.2 oz). Most recent hematocrit and potassium results: Hematocrit 36.2 09/21/2017 Potassium 4.0 09/21/2017 ANES DOS/PREOP NOTE: Vitals: 10/05/17 1153 BP: 113/68 Pulse: 82 Resp: 16 Temp: 36.6 ?C (97.9 ?F) TempSrc: Temporal Artery SpO2: 97% ACTIVE PROBLEM LIST Loose Body in Knee, Right Knee Benign Essential Hypertension Obesity Tear of Lateral Meniscus of Right Knee Primary Osteoarthritis of Right Knee Pancreatic Pseudocyst Wilver (Generalized Anxiety Disorder) Pancreatitis Malnutrition of Moderate Degree (Hcc) Obesity, Class I, BMI 30-34.9 E66.9 Nicotine use disorder, F17.2 Pancreatic Adenocarcinoma (Hcc) Admission for Fitting of Port-A-Cath PAST MEDICAL HISTORY Diagnosis Date - Cancer (HCC) - History of gallstones - HTN (hypertension) - Pancreatic pseudocyst 05/16/2017 - Pancreatitis - Psychiatric disorder anxiety PAST SURGICAL HISTORY Procedure Laterality Date - ANESTHESIA TOTAL HIP ARTHROPLASTY Left 1996 - CHOLECYSTECTOMY 08/24/2017 - EGD 05/2017, 07/2017 - KNEE SCOPE,DIAGNOSTIC Right 02/02/16 Arthroscopy, knee - ORTHOPEDICS SURGERY HX FAMILY HISTORY Problem Relation Age of Onset - Diabetes Father - cardiac [OTHER] Father 82 - liver transplant [OTHER] Mother Hep C after transfusion Social History: Social History Substance Use Topics - Smoking status: Never Smoker - Smokeless tobacco: Never Used - Alcohol use 1.5 oz/week 1 Glasses of Wine (5oz) per week No current facility-administered medications on file prior to encounter. Current Outpatient Prescriptions on File Prior to Encounter: oxyCODONE IR (ROXICODONE) 5 mg immediate release tablet Take 1 tablet by mouth every 6 hours as needed for Pain for up to 30 days. OLANZapine (ZYPREXA) 5 mg tablet Take 1 tablet by mouth at bedtime as needed. pantoprazole DR (PROTONIX) 40 mg tablet Take 1 tablet by mouth once daily. sucralfate (CARAFATE) 100 mg/mL suspension Take 10 mL by mouth four times daily. amLODIPine (NORVASC) 10 mg tablet Take 1 tablet by mouth once daily. ondansetron (ZOFRAN) 4 mg tablet Take 4 mg by mouth every 8 hours as needed for Nausea/Vomiting. promethazine (PHENERGAN) 25 mg tablet Take 1 tablet by mouth every 4 hours as needed (for nausea). clonazePAM (KLONOPIN) 1 mg tablet Take 1 tablet by mouth twice daily as needed for Anxiety for up to 30 days. (Patient taking differently: Take 1 mg by mouth as needed for Anxiety. ) dhpsij-xdaanifw-tygujeg (CREON) 24,000-76,000 -120,000 unit cpDR Take 3 capsules by mouth three times daily with meals. acetaminophen (TYLENOL) 325 mg tablet Take 2 tablets by mouth every 6 hours as needed. (Patient taking differently: Take 650 mg by mouth every 6 hours as needed for Pain. ) Current Facility-Administered Medications: lactated ringers infusion 5-30 mL/hr INTRAVENOUS CONTINUOUS Kinsey (Learning Engineer) Pfaffel Last Rate: 30 mL/hr at 10/05/17 1200 30 mL/hr at 10/05/17 1200 Allergies: ALLERGIES No Known Allergies DOS EXAM: Adequate NPO status: Yes Anesthetic risks, benefits, alternatives, personnel and consent discussed: Yes Patient agrees to proceed: Yes Previous Anesthesia: No history of adverse event. Airway Assessment: MP 2; Neck ROM: Full ROM without neurologic symptoms; Airway Evaluation: large tongue Symptoms of Sleep Apnea: Snoring, Age over 50 (57 year old) and Male gender Dentition: Teeth intact Additional Physical Exam: Lungs: Patient health status unchanged since recent history and physical. See history and physical for exam findings. Cardiac: Patient health status unchanged since recent history and physical. See history and physical for exam findings. Blood Products: Not anticipated for this procedure. Anesthetic Plan: MAC with Sedation and Standard ASA Monitors Pain Management Plan: Parenteral or Oral ASA Class: 4 Chronic Beta Sofya medication administered within 24 hours: N/A I have interviewed and examined the patient. I have reviewed the medical record and/or the pre-anesthesia evaluation, pertinent labs, and test results. Significant changes in the patient's condition since the History and Physical, not otherwise documented in primary service progress notes: No This contains updated information obtained within 48 hours of Surgery/Procedure. SIGNATURE: Todd Shannon MD PATIENT NAME: Evans Newell DATE: October 05, 2017 TIME: 12:22 PM CSN: [id number] PT ED Observed: 10/05/2017 Status: COMPLETED Source: [place] 11:56 AM CLINIC OTHER CAMPUS REPOSITORY O ID: [id number] Author: Yen SamsonRn) NICKI Ambrocio Service: Nursing Author Type: Registered Nurse Type: Patient Education Filed: 10/05/2017 11:57 AM Note Text: PRE OP LEARNING ASSESSMENT PROCEDURE/SURGERY: SURGERY: READINESS TO LEARN COGNITIVE ABILITY: Alert and oriented MOTIVATION TO LEARN: Eager FAMILY SUPPORT: High - Very involved in pt care PATIENT LEARNS BEST BY: Verbal Instruction FACTORS AFFECTING LEARNING: None PHYSICAL LIMITATIONS AFFECTING LEARNING: None Electronically Signed By: Yen Ambrocio RN In Department: [facility] SURGERY OPERATIVE NO Observed: 10/05/2017 Status: COMPLETED Source: [place] 12:00 AM CLINIC OTHER CAMPUS REPOSITORY HNO ID: [id number] Author: Haley Avina Service: General Surgery Author Type: Physician Type: Operative Report Filed: 10/06/2017 7:03 AM Note Text: [facility]- Operative Report EVANS NEWELL : 1960 AGE: 57 SEX: M ACCTNUM: [id number] [place] [facility] [place] [facility] [facility] LOCATION: [facility] ATTENDING PHYSICIAN: Haley Avina M.D. DATE OF PROCEDURE: 10/05/2017 SURGEON: Haley Avina M.D. AIRLINE LOUNGE RECEPTIONIST: NONE ANESTHESIA: General anesthesia. PREOPERATIVE DIAGNOSIS(ES): Pancreatic cancer. POSTOPERATIVE DIAGNOSIS(ES): Pancreatic cancer. NAME OF OPERATION: Right internal jugular single lumen port placement using fluoroscopy. INDICATIONS: The patient is a 57-year-old gentleman, who recently was diagnosed with pancreatic cancer. He now presents for port placement for neoadjuvant chemotherapy. Risks including bleeding, infection, and pneumothorax were explained, and he would like to proceed. ESTIMATED BLOOD LOSS: Minimal blood loss. PROCEDURE START TIME: 1:39 p.m. PROCEDURE END TIME: 1:57 p.m. PROCEDURE: The patient was identified and brought to the operating room, placed in supine position. We attempted monitored anesthesia; however, the patient upon lying flat developed significant nausea. He was placed upright and profuse emesis occurred. Once he was comfortable, we proceeded with a general anesthetic with an endotracheal intubation. The neck and chest were then prepped and draped in sterile fashion. Attention was then turned to the right internal jugular vein. The vein was first cannulated with a 25-gauge needle. The introducer needle was then placed into the right internal jugular vein. The wire was then threaded without resistance. Fluoroscopy was used to note that the wire was in the superior vena cava. The port pocket was then created with a 15-blade scalpel and carried deep with cautery. The single- lumen Medcomp port was then chosen. This was placed in the subfascial position. This was tunneled subcutaneously to the neck incision. The catheter was then cut at 24 cm. Using the Seldinger technique, the catheter was placed into the right internal jugular vein. The tip of the catheter was located within the superior vena cava. The port was accessed with a Hargrove needle, aspirated of blood, and flushed with saline. The wound was then copiously irrigated. The port was sutured to the underlying fascia using two 3-0 silk sutures. The wound was then irrigated and closed with 3-0 Vicryl, 5-0 Vicryl, and Steri-Strips. The port was again accessed with a Hargrove needle, aspirated of blood, and flushed with heparin. The needle was left in place. Sterile gauze dressings were applied. All counts were correct at the end of the case. The patient tolerated the procedure well. He was taken to recovery room in good condition. Haley Avina M.D. General Surgery KED:[id number] /[id number] NURSING PROG Observed: 10/04/2017 Status: COMPLETED Source: [place] 9:19 AM [facility] OTHER CAMPUS REPOSITORY HNO ID: [id number] Author: Autumn Cronin (Rn) NICKI Tamayo Service: (none) Author Type: Registered Nurse Type: Nursing Progress Note Filed: 10/04/2017 2:13 PM Note Text: PACC Nurse Progress Note History AND Physical: PACC Visit Date: None Original HANDP Date:see HANDP by Dr. Marques Kulkarni 09/16/2017 ED Date:09/15/2017 Outside HANDP Scanned Date: N/A Labs Within Last 6 Months: CBC: Date 09/21/2017 - WBC 15.37, H/H 11.8/36.2, Platelets 704 - consistent with previous BMP/CMP: Date 09/21/2017 Within acceptable limits except Glucose 129 Imaging Within Last 12 Months: Chest X-ray Date: 09/15/2017 Results in EPIC Cardiac Testing: EKG in last 12 Months: Yes: Date: 09/15/2017, Comment: Sinus Rhythm HR 96 INCOMPLETE RIGHT BUNDLE BRANCH BLOCK ST AND T WAVE ABNORMALITY, CONSIDER ANTERIOR ISCHEMIA ABNORMAL ECG WHEN COMPARED WITH ECG OF 05-MAR-2017 11:54, NO SIGNIFICANT CHANGE WAS FOUND Last Menstrual Period: LMP Date: N/A Postmenopausal >1yr: N/A, S/P Hysterectomy: N/A BMI Percentile (PEDS): 35.56 Risk Assessment: N/A Anesthesia Review: N/A Narrative: Recent ED/hospital admission. Diagnosed with pancreatic adenocarcinoma Has HANDP 09/16/2017 Dr. Marques Kulkarni Pre-op Considerations: N/A Chart Check: COMPLETE Autumn Tamayo RN/Mary Anne Huber RN October 04, 2017 1204 PATIENT PREOPERATIVE INSTRUCTIONS No ref. provider found has scheduled you for your procedure at this surgery center: [facility]: [phone] -- [address] [id number]. Patient called and given pre-op instructions with good verbal understanding. Blood Thinning Medications: None Dietary Restrictions: - No solid food after midnight. - You may have 12 ounces of clear liquids (water, clear juices such as apple juice or gatorade, carbonated beverages, clear tea, black coffee, jello) until 2 hours before scheduled arrival at facility. Pain Medications: - Please continue your current pain medications. Medications: Approved medications to take the morning of surgery with a sip of water: Pantoprazole, oxycodone If you start any new medications after today's visit, please contact the surgery center above. Important Reminders: - Candy, mints, gum and tobacco products are NOT permitted the morning of surgery. - Hearing aids, dentures and glasses may be worn the morning of surgery. - NO jewelry, body piercings, makeup, nail sudanese, hairpins or contacts are to be worn the day of surgery. May shower, no powders, lotions, or creams If you develop symptoms such as a fever, cold, or flu, or have other changes to your health within TWO DAYS of scheduled surgery or the morning of surgery, please contact the surgery center above. Personal Belongings: - Leave ALL valuables and money at home or with family members. For Outpatient Procedures: - YOU MUST HAVE A RESPONSIBLE SENIOR IOS SOFTWARE ENGINEER TAKE YOU HOME. A REAL ESTATE TEACHER OR ORACLE IAM CONSULTANT CANNOT BE MADE A RESPONSIBLE SENIOR IOS SOFTWARE ENGINEER. - We recommend that a responsible person stays with you overnight to take care of you. - You cannot stay in a hotel alone after outpatient surgery. You will not be permitted to have your surgery, if you do not have someone to take care of you. Arrival Time for Surgery: - The Surgery Center or hospital where you are having surgery will call the afternoon before surgery (or Monday for Monday surgery) with a scheduled arrival time. - If you have not heard by 4 pm, please contact the surgery center above. Please be aware that emergency situations arise, which may delay or change your surgical time. If this happens, we will notify you as soon as possible and regret any inconvenience. Autumn Tamayo RN October 04, 2017 1:56 PM HOSP Observed: 10/03/2017 Status: COMPLETED Source: [place] 12:00 AM CLINIC OTHER CAMPUS REPOSITORY Patient:Evans Newell MRN: <[id number]> Height:6' 3.748(1.924 m) Weight:246 lb 3.2 oz (111.676 kg) Outpatient Medications as of 10/05/17: ondansetron (ZOFRAN) 4 mg tablet oxyCODONE IR (ROXICODONE) 5 mg immediate release tablet OLANZapine (ZYPREXA) [address] (PROTONIX) 40 mg tablet sucralfate (CARAFATE) 100 mg/mL suspension promethazine (PHENERGAN) 25 mg tablet amLODIPine (NORVASC) 10 mg tablet clonazePAM (KLONOPIN) 1 mg tablet rijfyz-gzihrixj-oacvcfr (CREON) 24,000-76,000 -120,000 unit cpDR acetaminophen (TYLENOL) 325 mg tablet Admission/Clinic Administered Medications as of 10/05/17: lactated ringers infusion Problem List: Loose body in knee, right knee [M23.41] Benign essential hypertension [I10] Obesity [E66.9] Tear of lateral meniscus of right knee [S83.281A] Primary osteoarthritis of right knee [M17.11] Pancreatic pseudocyst [K86.3] WILVER (generalized anxiety disorder) [F41.1] Pancreatitis [K85.90] Malnutrition of moderate degree (HCC) [E44.0] Obesity, Class I, BMI 30-34.9 E66.9 [E66.9] Nicotine use disorder, F17.2 [F17.200] Pancreatic adenocarcinoma (HCC) [C25.9] Admission for fitting of port-a-cath [Z45.2] Allergies: No Known Allergies Date Verified:10/04/17 Lab Values Lab Value Units Date High Low POTA* 4.0 mmol/L 09/21/2017 5.1 3.7 CARLOS* 36.2 % 09/21/2017 51.0 39.0 Progress Notes (CARLOS MAIN CA 3): Dorota Muir RN, RN 10/02/2017 4:08 PM Signed Additional intake questions: Has the patient had nausea, vomiting, diarrhea, constipation, fatigue for > 1 week? Nausea, Yes, MD Notified Fatigue, Yes, MD Notified Does the patient have a decreased appetite? Yes Does patient want to see a Regulatory Internship? No (yes to any of above refer patient to schedulers for dietitian appointment) ) Does patient have any new or increased numbness or tingling of extremities? No Is patient interested in fertility information? No Does patient need any prescription refills? No Electronically Signed By: NICKI Ruff MD 10/02/2017 5:31 PM Signed CC: New visit for pancreatic adenocarcinoma. HPI: Mr. Newell has the following relevant history: ? Starting December 2016, symptoms of abdominal pain. ? May 2017: Diagnosis of gallstone pancreatitis with pancreatic pseudocysts. EGD guided cystogastrostomy was performed because of pyloric narrowing from the pseudocyst. ? Jul 2017: Cystogastrostomy stent removed. ? Aug 24, 2017: Laparoscopic cholecystectomy. Final pathology showed chronic cholecystitis. ? Had postcholecystectomy pancreatitis, evaluation for which revealed a pancreatic tail lesion as well. ? September 19, 2017: EUS-guided FNA of pancreatic lesion confirmed adenocarcinoma. ? Reviewed at our multidisciplinary PancreatoBiliary Tumor Board: Consensus for upfront chemotherapy followed by attempt at resection, with the caveat that the cystogastrostomy may have led to cancer spillage. PMH: No remarkable comorbidities. Medicines, allergies reviewed, as noted. 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 They have 3 children. FH: Sister had breast cancer. ROS: Abdominal pain and nausea are the main complaints. Pain is mostly at night, gnawing, boring through to the back. Has lost about 40 lb during all this. ECOG PS is 1. A complete ROS is otherwise negative. On Exam: Blood pressure 115/75, pulse 98, temperature 36.5 ?C (97.7 ?F), temperature source Oral, resp. rate 20, height 192.4 cm (6' 3.75), weight 111.7 kg (246 lb 3.2 oz). In no distress. No pallor, icterus, cyanosis, JVD or edema. No palpable lymphadenopathy. HEENT: Normal. Chest: Good b/l air entry. No additional sounds. CVS: Normal auscultation. Abd: Non-tender. No organomegaly or free fluid. Skin: No rash. Neuro: No focal neurologic findings. Psych: Normal affect. Studies: Reviewed relevant records, labs, and reports. Reviewed images. Impression and Recommendations: Pancreatic adenocarcinoma. Discussed further management with him and his family in detail: ? Will start with chemotherapy. We will use gemcitabine/nab-paclitaxel. Discussed rationale, schedule, side effects. ? We will plan for 3 months of chemotherapy followed by attempt at resection. ? Port ordered. Visits ordered. Consent obtained. -Rocio Fermin MD, MPH GI Section, Medical Oncology. Progress Notes (TUMOR BOARD): Say Brumfield MD 09/28/2017 8:38 AM Signed Pancreaticobiliary Tumor Board Meeting Minutes: Date: July 28, 2017 Time: 4:00 - 5:00 PM Patient: Evans Martínez Donneleazar Treating Physicians of Record: Surgery: Elijah Garcia MD, Oncology: None, Radiation Oncology: None Consensus Decision Makin57 year old male with diagnosis of pancreas cancer. Patient presented with presumed biliary pancreatitis. He had a larger cyst at the pancreatic tail requiring cystogastrostomy. Had laparoscopic cholecystectomy in late August. Review of CT scans show a pancreatic tail mass this was FNA biopsy proven to be adenocarcinoma. There are a lot of of the residual inflammatory changes in the perigastric area. This patient is at high risk for peritoneal carcinomatosis Relevant clinical data were reviewed. Board recommendation: Referred to oncology for systemic therapy for 2-3 months followed by evaluation and consideration for surgery. Otherwise the mass itself is resectable potentially September 28, 2017 8:36 AM Attendees: Representatives were present from Radiology, [facility] Surgery, Medical Oncology, Radiation Oncology and Pathology PROGRESS Observed: 10/02/2017 Status: COMPLETED Source: [place] 5:00 PM [facility] REPOSITORY HNO ID: [id number] Author: Rocio Fermin Service: (none) Author Type: Physician Type: Progress Notes Filed: 10/02/2017 5:31 PM Note Text: CC: New visit for pancreatic adenocarcinoma. HPI: Mr. Newell has the following relevant history: ? Starting December 2016, symptoms of abdominal pain. ? May 2017: Diagnosis of gallstone pancreatitis with pancreatic pseudocysts. EGD guided cystogastrostomy was performed because of pyloric narrowing from the pseudocyst. ? Jul 2017: Cystogastrostomy stent removed. ? Aug 24, 2017: Laparoscopic cholecystectomy. Final pathology showed chronic cholecystitis. ? Had postcholecystectomy pancreatitis, evaluation for which revealed a pancreatic tail lesion as well. ? September 19, 2017: EUS-guided FNA of pancreatic lesion confirmed adenocarcinoma. ? Reviewed at our multidisciplinary PancreatoBiliary Tumor Board: Consensus for upfront chemotherapy followed by attempt at resection, with the caveat that the cystogastrostomy may have led to cancer spillage. PMH: No remarkable comorbidities. Medicines, allergies reviewed, as noted. 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 They have 3 children. FH: Sister had breast cancer. ROS: Abdominal pain and nausea are the main complaints. Pain is mostly at night, gnawing, boring through to the back. Has lost about 40 lb during all this. ECOG PS is 1. A complete ROS is otherwise negative. On Exam: Blood pressure 115/75, pulse 98, temperature 36.5 ?C (97.7 ?F), temperature source Oral, resp. rate 20, height 192.4 cm (6' 3.75), weight 111.7 kg (246 lb 3.2 oz). In no distress. No pallor, icterus, cyanosis, JVD or edema. No palpable lymphadenopathy. HEENT: Normal. Chest: Good b/l air entry. No additional sounds. CVS: Normal auscultation. Abd: Non-tender. No organomegaly or free fluid. Skin: No rash. Neuro: No focal neurologic findings. Psych: Normal affect. Studies: Reviewed relevant records, labs, and reports. Reviewed images. Impression and Recommendations: Pancreatic adenocarcinoma. Discussed further management with him and his family in detail: ? Will start with chemotherapy. We will use gemcitabine/nab-paclitaxel. Discussed rationale, schedule, side effects. ? We will plan for 3 months of chemotherapy followed by attempt at resection. ? Port ordered. Visits ordered. Consent obtained. -Rocio Fermin MD, MPH GI Section, Medical Oncology. CNOVSP Observed: 10/02/2017 Status: COMPLETED Source: [place] 4:00 PM [facility] REPOSITORY Visit (SP) Office ([id number]) EVANS NEWELL ([id number]) 1960 M Date Time Provider Department 10/02/17 4:00 PM [facility] During your visit today, we recorded the following information about you: Temperature Pulse Respiration Blood pressure 97.7 degrees 98/minute 20/minute 115/75 Weight Height 111.7 kg 1.924 m Dorota Muir RN, RN 10/02/2017 4:08 PM Signed Additional intake questions: Has the patient had nausea, vomiting, diarrhea, constipation, fatigue for > 1 week? Nausea, Yes, MD Notified Fatigue, Yes, MD Notified Does the patient have a decreased appetite? Yes Does patient want to see a Regulatory Internship? No (yes to any of above refer patient to schedulers for dietitian appointment) ) Does patient have any new or increased numbness or tingling of extremities? No Is patient interested in fertility information? No Does patient need any prescription refills? No Electronically Signed By: NICKI Ruff MD 10/02/2017 5:31 PM Signed CC: New visit for pancreatic adenocarcinoma. HPI: Mr. Newell has the following relevant history: ? Starting December 2016, symptoms of abdominal pain. ? May 2017: Diagnosis of gallstone pancreatitis with pancreatic pseudocysts. EGD guided cystogastrostomy was performed because of pyloric narrowing from the pseudocyst. ? Jul 2017: Cystogastrostomy stent removed. ? Aug 24, 2017: Laparoscopic cholecystectomy. Final pathology showed chronic cholecystitis. ? Had postcholecystectomy pancreatitis, evaluation for which revealed a pancreatic tail lesion as well. ? September 19, 2017: EUS-guided FNA of pancreatic lesion confirmed adenocarcinoma. ? Reviewed at our multidisciplinary PancreatoBiliary Tumor Board: Consensus for upfront chemotherapy followed by attempt at resection, with the caveat that the cystogastrostomy may have led to cancer spillage. PMH: No remarkable comorbidities. Medicines, allergies reviewed, as noted. 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 They have 3 children. FH: Sister had breast cancer. ROS: Abdominal pain and nausea are the main complaints. Pain is mostly at night, gnawing, boring through to the back. Has lost about 40 lb during all this. ECOG PS is 1. A complete ROS is otherwise negative. On Exam: Blood pressure 115/75, pulse 98, temperature 36.5 ?C (97.7 ?F), temperature source Oral, resp. rate 20, height 192.4 cm (6' 3.75), weight 111.7 kg (246 lb 3.2 oz). In no distress. No pallor, icterus, cyanosis, JVD or edema. No palpable lymphadenopathy. HEENT: Normal. Chest: Good b/l air entry. No additional sounds. CVS: Normal auscultation. Abd: Non-tender. No organomegaly or free fluid. Skin: No rash. Neuro: No focal neurologic findings. Psych: Normal affect. Studies: Reviewed relevant records, labs, and reports. Reviewed images. Impression and Recommendations: Pancreatic adenocarcinoma. Discussed further management with him and his family in detail: ? Will start with chemotherapy. We will use gemcitabine/nab-paclitaxel. Discussed rationale, schedule, side effects. ? We will plan for 3 months of chemotherapy followed by attempt at resection. ? Port ordered. Visits ordered. Consent obtained. -Rocio Fermin MD, MPH GI Section, Medical Oncology. Referring Provider: ELIJAH CASANOVA [[id number]] Allergies As of Date: 10/02/2017 (No Known Allergies) Date Reviewed: 10/02/2017 Reviewed by: Dorota Muir RN - Fully Assessed Reason for Visit: Consult [173] Primary Visit Diagnosis:Pancreatic adenocarcinoma (HCC) [C25.9] Order(s):oxyCODONE IR (ROXICODONE) 5 mg immediate release tabletTake 1 tablet by mouth every 6 hours as needed for Pain for up to 30 days.Disp: 100 tabletRfl: 0 OLANZapine (ZYPREXA) 5 mg tabletTake 1 tablet by mouth at bedtime as needed.Disp: 20 tabletRfl: 2 Prescriptions as of 10/02/2017 Sig: ONDANSETRON HCL 4 MG TABLET Take 4 mg by mouth every 8 ho* PANTOPRAZOLE 40 MG TABLET,DEL* Take 1 tablet by mouth once d* SUCRALFATE 100 MG/ML ORAL HOLLAND* Take 10 mL by mouth four time* PROMETHAZINE 25 MG TABLET Take 1 tablet by mouth every * AMLODIPINE 10 MG TABLET Take 1 tablet by mouth once d* CLONAZEPAM 1 MG TABLET Take 1 tablet by mouth twice * Patient taking differently: Take 1 mg by mouth as needed * QPSMVY-KLVCXKDA-SNPXHKF 24,00* Take 3 capsules by mouth thre* ACETAMINOPHEN 325 MG TABLET Take 2 tablets by mouth every* Patient taking differently: Take 650 mg by mouth every 6 * OXYCODONE 5 MG TABLET Take 1 tablet by mouth every * OLANZAPINE 5 MG TABLET Take 1 tablet by mouth at bed* Problem List As Of Date 10/02/2017 Noted Resolved Loose body in knee, right knee [M23.41] INVALID FOR* Benign essential hypertension [I10] INVALID FOR* Obesity [E66.9] INVALID FOR* Tear of lateral meniscus of right knee [S83.281*INVALID FOR* Primary osteoarthritis of right knee [M17.11] INVALID FOR* Pancreatic pseudocyst [K86.3] INVALID FOR* WILVER (generalized anxiety disorder) [F41.1] INVALID FOR* Gallstones [K80.20] INVALID FOR*08/24/2017 More... Pancreatitis [K85.90] INVALID FOR*08/24/2017 More... Pancreatitis [K85.90] INVALID FOR* Malnutrition of moderate degree (HCC) [E44.0] INVALID FOR* Obesity, Class I, BMI 30-34.9 E66.9 [E66.9] INVALID FOR* Nicotine use disorder, F17.2 [F17.200] INVALID FOR* Pancreatic adenoma [D13.6] INVALID FOR*09/22/2017 Pancreatic adenocarcinoma (HCC) [C25.9] INVALID FOR* Visit Notes: >> Dorota (Halle Muir RN Mon October 02, 2017 4:06 PM Status: Signed Additional intake questions: Has the patient had nausea, vomiting, diarrhea, constipation, fatigue for > 1 week? Nausea, Yes, MD Notified Fatigue, Yes, MD Notified Does the patient have a decreased appetite? Yes Does patient want to see a Regulatory Internship? No (yes to any of above refer patient to schedulers for dietitian appointment) ) Does patient have any new or increased numbness or tingling of extremities? No Is patient interested in fertility information? No Does patient need any prescription refills? No PROGRESS Observed: 09/28/2017 Status: COMPLETED Source: [place] 8:36 AM [facility] REPOSITORY HNO ID: [id number] Author: Say Brumfield Service: (none) Author Type: Physician Type: Progress Notes Filed: 09/28/2017 8:38 AM Note Text: Pancreaticobiliary Tumor Board Meeting Minutes: Date: July 28, 2017 Time: 4:00 - 5:00 PM Patient: Evans Newell Treating Physicians of Record: Surgery: Elijah Garcia MD, Oncology: None, Radiation Oncology: None Consensus Decision Makin57 year old male with diagnosis of pancreas cancer. Patient presented with presumed biliary pancreatitis. He had a larger cyst at the pancreatic tail requiring cystogastrostomy. Had laparoscopic cholecystectomy in late August. Review of CT scans show a pancreatic tail mass this was FNA biopsy proven to be adenocarcinoma. There are a lot of of the residual inflammatory changes in the perigastric area. This patient is at high risk for peritoneal carcinomatosis Relevant clinical data were reviewed. Board recommendation: Referred to oncology for systemic therapy for 2-3 months followed by evaluation and consideration for surgery. Otherwise the mass itself is resectable potentially September 28, 2017 8:36 AM Attendees: Representatives were present from Radiology, [facility] Surgery, Medical Oncology, Radiation Oncology and Pathology PROGRESS Observed: 09/25/2017 Status: COMPLETED Source: [place] 10:59 AM [facility] REPOSITORY HNO ID: [id number] Author: Sofi Ruelas RN Service: (none) Author Type: (none) Type: Progress Notes Filed: 10/04/2017 12:57 PM Note Text: TRANSITION CARE MANAGEMENT (TCM) INITIAL CONTACT Provider Action/FYI: 09/25/17- VM left for pt to call office back 09/25/17 spoke with patient. Initial contact with patient post discharge, spoke to patient. Patient identified by name and . SUMMARY: -Pt discharged from [facility] on 09/22/17. -Follow up appointment on not scheduled at this time. -Medication review done yes. -Admitted for:Pancreatitis CONCERNS: Newly diagnosed pancreatic cancer. Tumor Board meets on 09/27/17, and outcome of this will largely determine course of action and ability to schedule appointments, NEW MEDICATIONS: pantoprazole DR (PROTONIX) 40 mg tablet Take 1 tablet by mouth once daily. Print RX, Disp-90 tablet, R-0, Long-term ? sucralfate (CARAFATE) 100 mg/mL suspension Take 10 mL by mouth four times daily. Print RX, Disp-1200 mL, R-0 ? amoxicillin-clavulanic acid (AUGMENTIN) 875-125 mg per tablet Take 1 tablet by mouth every 12 hours for 5 days. Print RX, Disp-10 tablet, R-0 MEDS HELD/DISCONTINUED: sucralfate (CARAFATE) 1 gram tablet Comments: Reason for Stopping: ? esomeprazole (NEXIUM) 40 mg capsule Comments: Reason for Stopping: ? ? ? BRIEF HOSPITAL COURSE: Copied from Hospital D/C Summary : The patient was admitted with abdominal pain on a background of complicated pancreatitis. He underwent a CT and was found to have sequelae of pancreatitis. Due to concern for infection he underwent CT guided aspiration of a possible abdominal fluid collection - cultures were negative. Due to concern for a pancreatic tail malignancy he underwent EGD-EUS and FNA - the FNA was positive for adenocarcinoma. He was also found to have an associated gastric ulcer and was started on PPI/carafate. His oral intake improved and he was tolerating a full liquid diet on discharge. He was discharged on a course of oral augmentin. His case will be discussed at tumor board this week and we will contact him with the outcome of same. ? CNPTOUTRMARIA ANTONIACH Observed: 09/25/2017 Status: COMPLETED Source: [place] 12:00 AM [facility] REPOSITORY Patient Outreach (FAMPBR) EVANS NEWELL ([id number]) 1960 M Date Time Provider Department 09/25/17 KARRI MCCRAY (RN) TWIN During your visit today, we recorded the following information about you: Sofi Ruelas RN 10/04/2017 12:57 PM Signed TRANSITION CARE MANAGEMENT (TCM) INITIAL CONTACT Provider Action/FYI: 09/25/17- VM left for pt to call office back 09/25/17 spoke with patient. Initial contact with patient post discharge, spoke to patient. Patient identified by name and . SUMMARY: -Pt discharged from [facility] on 09/22/17. -Follow up appointment on not scheduled at this time. -Medication review done yes. -Admitted for:Pancreatitis CONCERNS: Newly diagnosed pancreatic cancer. Tumor Board meets on Mon09/27/17, and outcome of this will largely determine course of action and ability to schedule appointments, NEW MEDICATIONS: pantoprazole DR (PROTONIX) 40 mg tablet Take 1 tablet by mouth once daily. Print RX, Disp-90 tablet, R-0, Long-term ? sucralfate (CARAFATE) 100 mg/mL suspension Take 10 mL by mouth four times daily. Print RX, Disp-1200 mL, R-0 ? amoxicillin-clavulanic acid (AUGMENTIN) 875-125 mg per tablet Take 1 tablet by mouth every 12 hours for 5 days. Print RX, Disp-10 tablet, R-0 MEDS HELD/DISCONTINUED: sucralfate (CARAFATE) 1 gram tablet Comments: Reason for Stopping: ? esomeprazole (NEXIUM) 40 mg capsule Comments: Reason for Stopping: ? ? ? BRIEF HOSPITAL COURSE: Copied from Hospital D/C Summary : The patient was admitted with abdominal pain on a background of complicated pancreatitis. He underwent a CT and was found to have sequelae of pancreatitis. Due to concern for infection he underwent CT guided aspiration of a possible abdominal fluid collection - cultures were negative. Due to concern for a pancreatic tail malignancy he underwent EGD- EUS and FNA - the FNA was positive for adenocarcinoma. He was also found to have an associated gastric ulcer and was started on PPI/carafate. His oral intake improved and he was tolerating a full liquid diet on discharge. He was discharged on a course of oral augmentin. His case will be discussed at tumor board this week and we will contact him with the outcome of same. ? Allergies As of Date: 09/25/2017 (No Known Allergies) Date Reviewed: 09/22/2017 Reviewed by: Corie (Rn) NICKI Norman - Fully Assessed Reason for Visit: Transition Of Care [4074] Cmt: Dc'd from main on 09/22/17 TCM needed by 10/06/17 Prescriptions as of 09/25/2017 Sig: PANTOPRAZOLE 40 MG TABLET,DEL* Take 1 tablet by mouth once d* SUCRALFATE 100 MG/ML ORAL HOLLAND* Take 10 mL by mouth four time* AMOXICILLIN 875 MG-POTASSIUM * Take 1 tablet by mouth every * TRAMADOL 50 MG TABLET Take 1 tablet by mouth every * PROMETHAZINE 25 MG TABLET Take 1 tablet by mouth every * AMLODIPINE 10 MG TABLET Take 1 tablet by mouth once d* CLONAZEPAM 1 MG TABLET Take 1 tablet by mouth twice * Patient taking differently: Take 1 mg by mouth as needed * TYVHVA-[id number]-UMCAUYS 24,00* Take 3 capsules by mouth thre* ACETAMINOPHEN 325 MG TABLET Take 2 tablets by mouth every* Patient taking differently: Take 650 mg by mouth every 6 * X ONDANSETRON 4 MG TAB, RAPID D* Take 1 tablet by mouth every * Problem List As Of Date 09/25/2017 Noted Resolved Loose body in knee, right knee [M23.41] INVALID FOR* Benign essential hypertension [I10] INVALID FOR* Obesity [E66.9] INVALID FOR* Tear of lateral meniscus of right knee [S83.281*INVALID FOR* Primary osteoarthritis of right knee [M17.11] INVALID FOR* Pancreatic pseudocyst [K86.3] INVALID FOR* WILVER (generalized anxiety disorder) [F41.1] INVALID FOR* Gallstones [K80.20] INVALID FOR*08/24/2017 More... Pancreatitis [K85.90] INVALID FOR*08/24/2017 More... Pancreatitis [K85.90] INVALID FOR* Malnutrition of moderate degree (HCC) [E44.0] INVALID FOR* Obesity, Class I, BMI 30-34.9 E66.9 [E66.9] INVALID FOR* Nicotine use disorder, F17.2 [F17.200] INVALID FOR* Pancreatic adenoma [D13.6] INVALID FOR*09/22/2017 Pancreatic adenocarcinoma (HCC) [C25.9] INVALID FOR* Encounter Status:Closed by KARRI MCCRAY on 10/04/17 CNDS Observed: 09/22/2017 Status: COMPLETED Source: [place] 10:43 AM [facility] [place] REPOSITORY HNO ID: [id number] Author: Elijah Casanova Service: General Surgery Author Type: Physician Type: Discharge Summaries Filed: 09/22/2017 11:17 AM Note Text: DISCHARGE SUMMARY PATIENT NAME: Evans Newell ADMISSION DATE: 09/16/2017 DISCHARGE DATE: 09/22/2017 ATTENDING PHYSICIAN: Elijah Macedo MD REASON FOR HOSPITALIZATION: Abdominal pain due to pancreatitis DIAGNOSIS: Active Problems: Pancreatitis Malnutrition of moderate degree (HCC) Obesity, Class I, BMI 30-34.9 E66.9 Nicotine use disorder, F17.2 Pancreatic adenocarcinoma (HCC) OPERATIONS DURING HOSPITALIZATION: None PROCEDURES DURING HOSPITALIZATION: CT guided aspiration of abdominal collection EGD, EUS and FNA of pancreatic mass HOSPITAL COURSE: The patient was admitted with abdominal pain on a background of complicated pancreatitis. He underwent a CT and was found to have sequelae of pancreatitis. Due to concern for infection he underwent CT guided aspiration of a possible abdominal fluid collection - cultures were negative. Due to concern for a pancreatic tail malignancy he underwent EGD-EUS and FNA - the FNA was positive for adenocarcinoma. He was also found to have an associated gastric ulcer and was started on PPI/carafate. His oral intake improved and he was tolerating a full liquid diet on discharge. He was discharged on a course of oral augmentin. His case will be discussed at tumor board this week and we will contact him with the outcome of same. LABS AND PROCEDURES PENDING AT DISCHARGE: No pending results. CONSULTING TEAMS DURING HOSPITALIZATION: Gastroenterology: assisted with endoscopic procedures PATIENT CONDITION AT DISCHARGE: Good DISCHARGE DISPOSITION: Home/Self Care INFORMATION PROVIDED TO PATIENT: (To pull info documented from the [place] Instruct Orderset Complete O/S First): My Hospital Stay and Summary This is a summary of your hospital stay. Please read it carefully and share it with your family and healthcare providers. Date of Admission: 09/16/2017 Date of Discharge: 09/22/2017 Where I Will be Going after Discharge: Home My Doctors and Medical Team: ? My Main Hospital Doctor: Elijah Macedo ? My Primary Care Physician Summer The reason I was in the hospital/main diagnosis: Pancreatitis Summary of what happened when in the hospital: You were admitted to the hospital with pancreatitis. There was a mass at the tail of your pancreas which was biopsied, and a upper endoscopy showed a ulcer. You were discharged with antibiotics and antiacid medications. Other problem(s)/diagnosis: ACTIVE PROBLEM LIST Loose Body in Knee, Right Knee Benign Essential Hypertension Obesity Tear of Lateral Meniscus of Right Knee Primary Osteoarthritis of Right Knee Pancreatic Pseudocyst Wilver (Generalized Anxiety Disorder) Pancreatitis Malnutrition of Moderate Degree (Hcc) Obesity, Class I, BMI 30-34.9 E66.9 Nicotine use disorder, F17.2 Surgeries: PERC IMAGE GUIDED FLUID COLLECTION DRAINAGE BY CATHETER SOFT TISSUE Important Tests/Procedures: none Other: The following questions are required for quality measure and may or may not apply to you: Heart failure present during admission: No Acute OR (either STEMI or NSTEMI) Present at or During Admission? No Instructions for My Care at Home or Healthcare Facility These instructions explain what you or your senior caregiver need to do to continue your care at home or at another healthcare facility ? Please go over these instructions with your nurse and senior caregiver. ? If you are not sure about something, please ask. Symptoms or health problems to watch for after I leave the hospital: Signs of infection (fever, swelling, increase in redness or pus from incision) Symptoms of dehydration (weakness, fatigue, dizziness when standing or walking, high heart rate, low urine output or very dark urine). Severe abdominal pain Persistent nausea/vomiting If you experience chest pain or shortness of breath, go to the nearest emergency department. Call the office with questions or concerns. Pain management: Take tylenol for pain, take according to the instructions on the bottle Drain Care: N/A Supplies or equipment I need: No additional supplies needed Diet (what I can eat): Full liquid Diet Activity and exercise: (When I can drive, return to work) No restrictions Follow-up appointment reminders: (A list of any scheduled appointments is at the end of this document) You will be contacted to make an appointment with Dr. Srinivasa macedo in 1-2 weeks. No future appointments. Test results not available before I leave the hospital: No pending results Additional information for when I leave the hospital No additional instructions If you have any problems or questions, feel free to call [phone]. Even after hours or on weekends, the answering service will answer this phone line. If calling long distance, please use [phone].[phone] ([phone]) and ask for extension [phone]. Jose Esparza MD DISCHARGE MEDICATION: Discharge Medication List as of 09/22/2017 9:50 AM START taking these medications pantoprazole DR (PROTONIX) 40 mg tablet Take 1 tablet by mouth once daily. Print RX, Disp-90 tablet, R-0, Long-term sucralfate (CARAFATE) 100 mg/mL suspension Take 10 mL by mouth four times daily. Print RX, Disp-1200 mL, R-0 amoxicillin-clavulanic acid (AUGMENTIN) 875-125 mg per tablet Take 1 tablet by mouth every 12 hours for 5 days. Print RX, Disp-10 tablet, R-0 CONTINUE these medications which have NOT CHANGED promethazine (PHENERGAN) 25 mg tablet Take 1 tablet by mouth every 4 hours as needed (for nausea). Normal, Disp-20 tablet, R-0 amLODIPine (NORVASC) 10 mg tablet Take 1 tablet by mouth once daily. Normal, Disp-30 tablet, R-5, Long-term clonazePAM (KLONOPIN) 1 mg tablet Take 1 tablet by mouth twice daily as needed for Anxiety for up to 30 days. Call Rx, Disp-30 tablet, R-0, Long-term Dx: 1. WILVER (generalized anxiety disorder) qaaktf-ctmkkaso-xfegmmq (CREON) 24,000-76,000 -120,000 unit cpDR Take 3 capsules by mouth three times daily with meals. Normal, Disp-270 capsule, R-1, Long-term acetaminophen (TYLENOL) 325 mg tablet Take 2 tablets by mouth every 6 hours as needed. Print RX, Disp-30 tablet, R-0 ondansetron orally disintegrating (ZOFRAN ODT) 4 mg tab(s) ER Go-Pack Take 1 tablet by mouth every 8 hours as needed. Print RX, Disp-10 tablet, R-0 Take for nausea. STOP taking these medications sucralfate (CARAFATE) 1 gram tablet Comments: Reason for Stopping: esomeprazole (NEXIUM) 40 mg capsule Comments: Reason for Stopping: FUTURE APPOINTMENTS: Appointments for Next 60 Days Date Time Provider Location Dept Phone 09/22/2017 10:55 AM DISCHARGE AREA MAIN 10/24/2017 10:00 AM ELIJAH CASANOVA/M [facility] [phone] TIME OF CARE (Use first blank if not applicable): SIGNATURE: Mikael Owens MD PATIENT NAME: Evans Newell DATE: September 22, 2017 TIME: 10:46 AM PAGER/CONTACT #: [phone] Elijah Macedo MD CASE MANAGEM Observed: 09/22/2017 Status: COMPLETED Source: [place] 9:22 AM [facility] REPOSITORY HNO ID: [id number] Author: Pietro Patel (Rn), RN Service: Care Management Author Type: Registered Nurse Type: Care Mgt Progress Note Filed: 09/22/2017 9:29 AM Note Text: CARE MANAGEMENT DISCHARGE NOTE SERVICE DATE: 09/22/2017 SERVICE TIME: 921 LOS: 6 days Admission Date: 09/16/2017 DISCHARGE ARRANGEMENT (list agency and phone number) Home Provider: SUSANNA Phone: NA CAREGIVER ASSESSMENT: Caregiver is ready, willing and able to meet the patient's needs as recommended by the inter-professional team? No Caregiver Needed Patient's transition needs and plan for meeting these needs: no CM facilitated needs Does the patient have an acute stroke diagnosis, or has the patient had a stroke during this admission? No HANDOFF COMMUNICATION: Primary Care Physician: Dr. Yohana Dolan MD TRANSPORTATION ARRANGEMENTS: Car family ADDITIONAL CONTACT RESOURCES: none Pt has been deemed ready for DC by the primary team. No CM facilitated needs at DC. Pt is ambulatory and able to perform self care. will transport home. CM saw pt and bedside and answered several questions regarding disability forms, ADs, financial POA and billing questions. Pt and satisfied with answers given. Pt will f/u for new diagnosis of cancer. Appts to be scheduled. SIGNATURE: Pietro Patel RN PATIENT NAME: Evans Newell DATE: September 22, 2017 TIME: 9:22 AM PAGER/CONTACT #: [phone] PROGRESS Observed: 09/22/2017 Status: COMPLETED Source: [place] 8:17 AM [facility] REPOSITORY HNO ID: [id number] Author: Mikael Owens (Res) Service: General Surgery Author Type: Resident Type: Progress Notes Filed: 09/22/2017 8:18 AM Note Text: [facility] Surgery Evans Newell [id number] 09/22/2017 Tolerating fulls No fevers Pain ok Blood pressure 133/70, pulse 64, temperature 36.6 ?C (97.9 ?F), temperature source Oral, resp. rate 18, height 195.6 cm (6' 5.01), weight 115.6 kg (254 lb 13.6 oz), SpO2 95 %. Abdo soft, mild LUQ tenderness CBC, Coags, BMP, Mg, Phos Recent Labs 09/21/17200609/20/17213109/19/17 2249 WBC 15.37* 15.19* 15.64* HB 11.8* 11.5* 10.9* HCT 36.2* 34.9* 34.4* PLT 704* 644* 536* NA 137 139 133* K 4.0 4.5 3.8 CHLOR 101 102 97 CO2 21* 25 23 BUN 6* 5* 6* CREAT 0.65* 0.72* 0.62* GLUC 129* 124* 130* CA 8.1* 7.9* 8.0* 57yo male admitted with sequelae of acute pancreatitis Pancreatic tail mass biopsy proven for adenocarcinoma - will discuss at tumor board Gastric ulcer - Helicobacter serology equivocal, send stool test. BID PPI, carafate Advance diet as tolerated Lovenox/SCDs Discharge today on PO abx, will contact patient after tumor board discussion Plan of care discussed with the patient and his Mikael Owens MD BASIC METABOLIC PANL Collected: 09/21/2017 Status: F Source: [place] 8:07 PM [facility] REPOSITORY TYPE CODE TESTS RESULT OUT OF REFERENCE UNITS RANGE LAB GLU 74-99 mg/dL High Glucose 129 Result Comment: The [place] Diabetes Association (ADA) provides guidance for cutoff values for fasting glucose and random glucose. The ADA defines fasting as no caloric intake for at least 8 hours. Fas ting plasma glucose results between 100 to 125 mg/dL indicate increased risk for diabetes (prediabetes). Fasting plasma glucose results greater than or equal to 126 mg/dL meet the criteria for diagnosis of diabetes. In the absence of unequivocal hyperglycemia, results should be confirmed by repeat testing. In a patient with classic symptoms of hyperglycemia or hyperglycemic crisis, random plasma glucose results greater than or equal to 200 mg/dL meet the criteria for diagnosis of diabetes. Reference: Standards of Medical Care in Diabetes 2016, [place] Diabetes Association. Diabetes Care. 2016.39(Suppl 1). LAB BUN 9-24 mg/dL BUN Low 6 LAB CRET 0.73-1.22 mg/dL Creatinine Low 0.65 LAB NA 136-144 mmol/L Sodium 137 LAB K 3.7-5.1 mmol/L Potassium 4.0 LAB CL 97-105 mmol/L Chloride 101 LAB CO2 22-30 mmol/L CO2 Low 21 LAB AGAP 9-18 mmol/L Anion Gap 15 LAB CA 8.5-10.2 mg/dL Calcium, Low Total 8.1 LAB GFRAA eGFR- Amer. >60 LAB GFRNAA . eGFR-All Other Races >60 Result Comment: eGFR (Estimated GFR) Units of measure: mL/min/1.73 meters squared eGFR is derived from the reexpressed MDRD Study equation using the following parameters: serum creatinine, age, gender and race. The creatinine assay has been calibrated to be traceable to IDMS. An eGFR <60 mL/min/1.73m2 for >3 months is consistent with chronic kidney disease. Refer to KDOQI guidelines for clinical interpretation. In patients with unstable renal function, e.g. those with acute kidney injury, the eGFR may not accurately reflect actual GFR. Performed By: #### BMP, CBCDIF #### [facility] [address] [place], [place] [address] CBC AND DIFFERENTIAL Collected: 09/21/2017 Status: F Source: [place] 8:07 PM [facility] REPOSITORY TYPE CODE TESTS RESULT OUT OF REFERENCE UNITS RANGE LAB WBC 3.70-11.00 k/uL WBC High 15.37 LAB RBC 4.20-6.00 m/uL RBC 4.36 LAB HGB 13.0-17.0 g/dL Hemoglobin Low 11.8 LAB HCT 39.0-51.0 % Hematocrit Low 36.2 LAB MCV 80.0-100.0 fL MCV 83.0 LAB MCH 26.0-34.0 pG MCH 27.1 LAB MCHC 30.5-36.0 g/dL MCHC 32.6 LAB RDWCV 11.5-15.0 % RDW-CV 14.8 LAB PLTCT 150-400 k/uL Platelet Count High 704 LAB MPV 9.0-12.7 fL MPV 9.7 LAB ANEUT % Neut% 85.0 LAB AANEUT 1.45-7.50 k/uL Abs Neut High 13.06 LAB ALYMP % Lymph% 5.0 LAB AALYMP 1.00-4.00 k/uL Abs Lymph Low 0.77 LAB AMONO % Limestone% 7.0 LAB AAMONO <0.87 k/uL Abs [place] High 1.08 LAB AEOS % Eosin% 2.0 LAB AAEOS <0.46 k/uL Abs Eosin 0.31 LAB ABASO % Baso% 0.0 LAB AABASO <0.11 k/uL Abs Baso 0.00 LAB ABIMMG k/uL ANC(includeSEG+BAN 13.06 D) LAB AMETA % Pruden% 1.0 LAB LFTIMI Left Shift Present LAB POLIMI Polychromasia Slight LAB RBCMOR Red Cell Morph SEE COMMENT Result Comment: Unremarkable LAB PLTEST Platelet Platelet Estimate estimate increased LAB DTYP DTYPE Manual Diff Performed By: #### BMP, CBCDIF #### [facility] [address] [place], [place] [address] NUTRITION Observed: 09/21/2017 Status: COMPLETED Source: [place] 10:07 AM [facility] [place] REPOSITORY HNO ID: [id number] Author: Sue Goss (Rdn Ld), RD Service: Nutrition Therapy Author Type: Registered Dietitian Type: Nutrition Filed: 09/21/2017 2:25 PM Note Text: NUTRITION THERAPY PROGRESS NOTE SERVICE DATE: 09/21/2017 SERVICE TIME: 10:00 AM RECOMMENDED DIAGNOSIS: MODERATE PROTEIN-CALORIE MALNUTRITION per Registered Dietitian on 09/18 NUTRITION CARE PLAN Intervention: 1. Continue to advance diet as tolerated per primary. 2. Provide Ensure High Protein TID (160 kcal, 16 g pro/each). 3. If unable to meet >60% estimated nutritional needs via po diet + supplements, consider corpak re-insertion: -Osmolite 1.2: goal rate 80 ml/hr (1920 ml total volume, 2304 kcal/107 gm pro/1574 ml free water) with at least 30 ml water flush 6x/day for tube patency. 4. Continue Creon per primary; closely monitor BM frequency as pt reports historical constipation with higher dosage. 5. Maintain bowel regimen and regulation. Monitor and Evaluation: Goal: Meet >75% of estimated needs Monitor fluid/electrolyte balance Monitor labs, I/Os, vital signs, weight Discharge Nutrition Recommendations: Diet: advance diet as per primary Supplements: high calorie, high protein oral supplements when meeting <75% estimated needs via meals Interval History: per general surgery this AM: - Emesis yesterday. Now resolved and feels better. Wishes to try a diet. - Possible pancreatic mass - await FNA - Gastric ulcer - Helicobacter serology equivocal, send stool test. BID PPI, carafate Present Diet Order: Full Liquid Nutritional Intake: Prior to Admission: <75% estimated energy needs over the past 3+ month(s); Attributes drop in appetite primarily to N/V and c/o feeling nauseous every time I eat. 09/18-09/19: NPO 09/20: 50% at B, NPO for L and D At visit today, pt reports that he is feeling much better today. Corpak had been placed Monday via EGD but was removed as it was in the wrong place. Per pt, team told him that he does not need to follow any specific diet recommendations. Plan to hold off on replacement as long as intakes are adequate. Denies recent nausea/vomiting. Diet advancing to FL at lunch today which he's pleased about as he reports feeling hungry. Thought the Ensure Clear was gross and asking not to receive this again; agreeable to EHP TID although he has yet to try it (has not yet been compatible with diet). Monitor tolerance and acceptance. +ambulating in room. +BM 09/20; denies feeling constipated. IBW: 95 kg Dosing Weight: 117 kg Resting Metabolic Rate: 2111 Estimated kilocalorie needs: 8516-5210 kilocalories determined by 15-20 kcal/kg Estimated protein needs: 105-143 grams determined by 1.1-1.5 g/kg [place] weight Estimated fluid needs: 6155-5405 milliliters based on 1 mL per kcal Admission Weight: 116.2 kg (256 lb 3.2 oz) Current Weight: 116.9 kg (257 lb 11.5 oz) Body mass index is 30.55 kg/m?. class 1 obesity Weight stable b/w 116-117 kg during admission via standing scale weights. Current Facility-Administered Medications: enoxaparin 40 mg injection (LOVENOX) 40 mg SUBCUTANEOUS q 24 HR lactobacillus rhamnosus 10 billion cell (CULTURELLE) capsule 1 capsule ORAL DAILY pantoprazole DR 40 mg tab(s) (PROTONIX) 40 mg ORAL BID AC (0600/1600) sucralfate 1 g CUP (CARAFATE) 1 g ORAL q 6 H dextrose 5% in NaCl 0.45% with 20 mEq/L KCl iv infusion 100 mL/hr INTRAVENOUS CONTINUOUS docusate sodium 100 mg cap(s) (COLACE) 100 mg ORAL BID jqsbvy-qyojawkd-crpajxo 3 capsule cap(s) (CREON 24) 3 capsule ORAL TID w MEALS ondansetron (PF) 4 mg injection (ZOFRAN) 4 mg INTRAVENOUS q 6 H PRN piperacillin-tazobactam 3.375 g in dextrose (iso-osmotic) 50 mL (ZOSYN) 3.375 g INTRAVENOUS q 6 H amLODIPine 10 mg tab(s) (NORVASC) 10 mg ORAL DAILY MNT Billing Type: Re-assess/15 min 2 units SIGNATURE: Sue Goss RDN,DEYANIRA PATIENT NAME: Evans Newell DATE: September 21, 2017 TIME: 10:08 AM PAGER: [phone] PROGRESS Observed: 09/21/2017 Status: COMPLETED Source: [place] 8:23 AM [facility] REPOSITORY [facility] ID: [id number] Author: Elijah Casanova Service: General Surgery Author Type: Physician Type: Progress Notes Filed: 09/21/2017 4:35 PM Note Text: HPB Surgery Evans Newell [id number] 09/20/2017 Emesis yesterday Now resolved and feels better. Wishes to try a diet. Blood pressure 112/63, pulse 64, temperature 37.2 ?C (98.9 ?F), temperature source Oral, resp. rate 18, height 195.6 cm (6' 5.01), weight 116.9 kg (257 lb 11.5 oz), SpO2 99 %. Abdo soft, mild LUQ tenderness CBC, Coags, BMP, Mg, Phos Recent Labs 09/19/17 2249 09/19/17 0358 09/18/17 0522 WBC 15.64* 15.67* 16.65* HB 10.9* 10.0* 10.2* HCT 34.4* 31.4* 31.8* PLT 536* 423* 430* INR -- -- 1.2 APTT -- -- 27.8 NA 133* 136 137 K 3.8 4.4 4.3 CHLOR 97 99 97 CO2 23 29 26 BUN 6* 9 10 CREAT 0.62* 0.77 0.78 GLUC 130* 118* 110* CA 8.0* 8.1* 8.2* MG -- 1.8 2.0 P -- -- 3.5 Liver Function, Amylase, AND Lipase Recent Labs 09/19/17 0358 09/18/17 0522 TPROT 5.3* 5.9* ALB 2.2* 2.5* ALT 19 20 AST 28 23 ALKPHOS 196* 192* TBILI 0.9 1.0 57yo male admitted with sequelae of acute pancreatitis Possible pancreatic mass - await FNA Gastric ulcer - Helicobacter serology equivocal, send stool test. BID PPI, carafate Try FLD diet today, if persistent poor intake/nausea will need corpak, he had moderate protein calorie malnutrition Lovenox/SCDs Hopefully discharge tomorrow if martin diet, on PO abx Eren Cunha MD General Surgery, PGY-2 Pager: [phone]. Please contact [phone] after 6PM weekdays and on weekends September 21, 2017 8:26 AM [facility] STAFF PHYSICIAN NOTE OF PERSONAL INVOLVEMENT IN CARE I have reviewed the progress note obtained and documented by the resident and I personally participated in the batista components. I have discussed the case and management of the patient's care. The following comments revise or confirm relevant batista components of the note. Exam: BP 117/83 Pulse 92 Temp 37 ?C (98.6 ?F) (Oral) Resp 16 Ht 195.6 cm (6' 5.01) Wt 116.9 kg (257 lb 11.5 oz) SpO2 98% BMI 30.55 kg/m? Abd: soft, nt, nd Biopsy: pancreatic adenocarcinoma IMPRESSION: This is a 57 year old admitted with newly diagnosed pancreatic adenocarcinoma in setting pancreatitis. PLAN: Advance diet/activity. Tumor board submission for next week re: neoadjuvant vs up front surgery. Patient updated tonight of new diagnosis. Care Coordination The majority of the visit was spent counseling and/or coordinating care for the patient. Amsm-kz-saha time was 15 minutes Elijah Macedo MD Date of Service: September 21, 2017 Time of Service: 4:35 PM BASIC METABOLIC PANL Collected: 09/20/2017 Status: F Source: [place] 9:32 PM [facility] REPOSITORY TYPE CODE TESTS RESULT OUT OF REFERENCE UNITS RANGE LAB GLU 74-99 mg/dL High Glucose 124 Result Comment: The [place] Diabetes Association (ADA) provides guidance for cutoff values for fasting glucose and random glucose. The ADA defines fasting as no caloric intake for at least 8 hours. Fas ting plasma glucose results between 100 to 125 mg/dL indicate increased risk for diabetes (prediabetes). Fasting plasma glucose results greater than or equal to 126 mg/dL meet the criteria for diagnosis of diabetes. In the absence of unequivocal hyperglycemia, results should be confirmed by repeat testing. In a patient with classic symptoms of hyperglycemia or hyperglycemic crisis, random plasma glucose results greater than or equal to 200 mg/dL meet the criteria for diagnosis of diabetes. Reference: Standards of Medical Care in Diabetes 2016, [place] Diabetes Association. Diabetes Care. 2016.39(Suppl 1). LAB BUN 9-24 mg/dL BUN Low 5 LAB CRET 0.73-1.22 mg/dL Creatinine Low 0.72 LAB NA 136-144 mmol/L Sodium 139 LAB K 3.7-5.1 mmol/L Potassium 4.5 LAB CL 97-105 mmol/L Chloride 102 LAB CO2 22-30 mmol/L CO2 25 LAB AGAP 9-18 mmol/L Anion Gap 12 LAB CA 8.5-10.2 mg/dL Calcium, Low Total 7.9 LAB GFRAA eGFR- Amer. >60 LAB GFRNAA . eGFR-All Other Races >60 Result Comment: eGFR (Estimated GFR) Units of measure: mL/min/1.73 meters squared eGFR is derived from the reexpressed MDRD Study equation using the following parameters: serum creatinine, age, gender and race. The creatinine assay has been calibrated to be traceable to IDMS. An eGFR <60 mL/min/1.73m2 for >3 months is consistent with chronic kidney disease. Refer to KDOQI guidelines for clinical interpretation. In patients with unstable renal function, e.g. those with acute kidney injury, the eGFR may not accurately reflect actual GFR. Performed By: #### BMP, CBCDIF #### [facility] [address] [place], [place] [address] CBC AND DIFFERENTIAL Collected: 09/20/2017 Status: F Source: [place] 9:32 PM [facility] [place] REPOSITORY TYPE CODE TESTS RESULT OUT OF REFERENCE UNITS RANGE LAB WBC 3.70-11.00 k/uL WBC High 15.19 LAB RBC 4.20-6.00 m/uL RBC Low 4.10 LAB HGB 13.0-17.0 g/dL Hemoglobin Low 11.5 LAB HCT 39.0-51.0 % Hematocrit Low 34.9 LAB MCV 80.0-100.0 fL MCV 85.1 LAB MCH 26.0-34.0 pG MCH 28.0 LAB MCHC 30.5-36.0 g/dL MCHC 33.0 LAB RDWCV 11.5-15.0 % RDW-CV 14.9 LAB PLTCT 150-400 k/uL Platelet Count High 644 LAB MPV 9.0-12.7 fL MPV 10.5 LAB ANEUT % Neut% 75.9 LAB AANEUT 1.45-7.50 k/uL Abs Neut High 11.53 LAB ALYMP % Lymph% 6.9 LAB AALYMP 1.00-4.00 k/uL Abs Lymph 1.05 LAB AMONO % Limestone% 12.9 LAB AAMONO <0.87 k/uL Abs [place] High 1.96 LAB AEOS % Eosin% 1.7 LAB AAEOS <0.46 k/uL Abs Eosin 0.26 LAB ABASO % Baso% 0.0 LAB AABASO <0.11 k/uL Abs Baso 0.00 LAB AMETA % Pruden% 2.6 LAB LFTIMI Left Shift Present LAB POLIMI Polychromasia Slight LAB RBCMOR Red Cell Morph SEE COMMENT Result Comment: Unremarkable LAB PLTEST Platelet Platelet Estimate estimate increased LAB DTYP DTYPE Manual Diff Performed By: #### BMP, CBCDIF #### [facility] [address] [place], [place] [address] PROGRESS Observed: 09/20/2017 Status: COMPLETED Source: [place] 11:54 AM [facility] REPOSITORY [facility]NO ID: [id number] Author: Eren Cunha (Res) Service: General Surgery Author Type: Resident Type: Progress Notes Filed: 09/20/2017 12:35 PM Note Text: HPB PROGRESS NOTE: ? Patient Name: Evans Newell ? PRIMARY SERVICE: General Surgery ? ASSESSMENT AND PLAN: 57 year old male s/p cholecystectomy with intra-abdominal fluid collection, history of pancreatitis. EGD/EUS with gastric ulcer. FNA of pancreatic mass on EUS. - remove corpak in stomach. Attempt diet today and eval if tolerates. - f/u FNA results - PPI/carafate - Continue antibiotics - Protein supplements - Creon - Ambulate - Will likely need distal panc/splenectomy at some point (discussed at [facility] conference and recommended for EUS to eval for mass however unlikely, and may need distal panc for smoldering pancreatitis). Splenectomy vaccines already done INTERVAL HPI: No new issues. Gastric ulcer on EGD. Corpak still in stomach, removed. ? PHYSICAL EXAM: BP 137/70 Pulse 88 Temp 36.4 ?C (97.6 ?F) (Oral) Resp 18 Ht 195.6 cm (6' 5.01) Wt 117 kg (258 lb) SpO2 96% BMI 30.59 kg/m? Gen: NAD Pulm: Non-labored breathing, chest rise symmetric Abd: soft, NT, ND Ext: MARLOW spontaneously Neuro: Answering questions appropriately PROGRESS Observed: 09/20/2017 Status: COMPLETED Source: [place] 8:51 AM [facility] REPOSITORY [facility] ID: [id number] Author: Elijah Casanova Service: General Surgery Author Type: Physician Type: Progress Notes Filed: 09/20/2017 8:15 PM Note Text: HP[facility] Surgery Evans Newell [id number] 09/20/2017 No fevers Had EUS with FNA of pancreatic mass yesterday Pain ok Blood pressure 108/50, pulse 69, temperature 36.7 ?C (98.1 ?F), temperature source Oral, resp. rate 18, height 195.6 cm (6' 5.01), weight 117 kg (258 lb), SpO2 96 %. Abdo soft, mild LUQ tenderness CBC, Coags, BMP, Mg, Phos Recent Labs 09/19/17 2249 09/19/17 0358 09/18/17 0522 WBC 15.64* 15.67* 16.65* HB 10.9* 10.0* 10.2* HCT 34.4* 31.4* 31.8* PLT 536* 423* 430* INR -- -- 1.2 APTT -- -- 27.8 NA 133* 136 137 K 3.8 4.4 4.3 CHLOR 97 99 97 CO2 23 29 26 BUN 6* 9 10 CREAT 0.62* 0.77 0.78 GLUC 130* 118* 110* CA 8.0* 8.1* 8.2* MG -- 1.8 2.0 P -- -- 3.5 Liver Function, Amylase, AND Lipase Recent Labs 09/19/17 0358 09/18/17 0522 TPROT 5.3* 5.9* ALB 2.2* 2.5* ALT 19 20 AST 28 23 ALKPHOS 196* 192* TBILI 0.9 1.0 57yo male admitted with sequelae of acute pancreatitis Possible pancreatic mass - await FNA Gastric ulcer - Check Helicobacter serology, BID PPI, carafate Try diet today, if persistent poor intake will need corpak, he had moderate protein calorie malnutrition Lovenox/SCDs Hopefully discharge by the weekend (on po abx) Mikael Owens MD [facility] STAFF PHYSICIAN NOTE OF PERSONAL INVOLVEMENT IN CARE I have reviewed the progress note obtained and documented by the resident and I personally participated in the batista components. I have discussed the case and management of the patient's care. The following comments revise or confirm relevant batista components of the note. BP 128/66 Pulse 75 Temp 36.8 ?C (98.2 ?F) (Oral) Resp 18 Ht 195.6 cm (6' 5.01) Wt 117 kg (258 lb) SpO2 95% BMI 30.59 kg/m? Abd: soft, nt, nd IMPRESSION: This is a 57 year old admitted with post cholecystectomy pancreatitis, tail mass s/p EUS PLAN: Advance diet/activity. Awaiting biopsy results. Care Coordination The majority of the visit was spent counseling and/or coordinating care for the patient. Jfom-jc-oqxh time was 15 minutes Elijah Macedo MD Date of Service: September 20, 2017 Time of Service: 8:15 PM XR ABDOMEN 1V SUPINE Observed: 09/20/2017 Status: F Source: [place] 7:30 AM [facility] [place] REPOSITORY * * *Final Report* * * DATE OF EXAM: Sep 20 2017 7:30AM SELIN [id number] - XR ABDOMEN 1V SUPINE / PROCEDURE REASON: Encounter for feeding tube placement * * * * Physician Interpretation * * * * PORTABLE SUPINE ABDOMEN 09/20/2017 7:30 AM HISTORY: Tube placement. TECHNIQUE: 1 supine abdominal film(s). IMPRESSION: Only the upper abdomen is visualized. Feeding tube terminates at the level the gastric antrum. There are surgical clips in the right upper quadrant. Gas-filled nondilated colon. Atelectasis at lung bases. Airline Lounge Receptionist: PSCB Transcribe Date/Time: Sep 20 2017 8:56A Dictated by : KAYLIE PARKS MD This examination was interpreted and the report reviewed and electronically signed by: KAYLIE PARKS MD on Sep 20 2017 8:56AM EST [id number] CONSULT PROG Observed: 09/20/2017 Status: COMPLETED Source: [place] 6:13 AM [facility] REPOSITORY [place] ID: [id number] Author: Roni Solorzano MD (Fel) Service: Gastroenterology Author Type: Fellow Type: Consult Progress Note Filed: 09/20/2017 9:51 AM Note Text: GI CONSULT PROGRESS NOTE SERVICE DATE: 09/20/2017 SERVICE TIME: 6:13 AM CONSULTING SERVICE: Gastroenterology Subjective INTERVAL HISTORY: - Had EGD/EUS yesterday which showed a large gastric ulcer (?mass eroding into wall although imaging was not very concerning for that process, noted H pylori Ab ordered by primary team). FNA samples taken from pancreatic mass MEDICATIONS: Current hospital medications: HYDROmorphone 0.2 mg in NaCl 0.9% (DILAUDID) 0.2 mg INTRAVENOUS q [address] 40 mg tab(s) (PROTONIX) 40 mg ORAL BID AC (0600/1600) metoclopramide HCl 10 mg injection (REGLAN) 10 mg INTRAVENOUS QID sucralfate 1 g CUP (CARAFATE) 1 g ORAL q 6 H dextrose 5% in NaCl 0.45% with 20 mEq/L KCl iv infusion 100 mL/hr INTRAVENOUS CONTINUOUS docusate sodium 100 mg cap(s) (COLACE) 100 mg ORAL BID enoxaparin 40 mg injection (LOVENOX) 40 mg SUBCUTANEOUS q 24 HR acetaminophen 650 mg tab(s) (TYLENOL) 650 mg ORAL q 4 H PRN zalcrq-sxwnpwmp-ymiuelp 3 capsule cap(s) (CREON 24) 3 capsule ORAL TID w MEALS ondansetron (PF) 4 mg injection (ZOFRAN) 4 mg INTRAVENOUS q 6 H PRN potassium chloride ER 20-40 mEq tab(s) (K-DUR, KLOR-CON) 20- 40 mEq ORAL PRN potassium chloride iv piggyback 20 mEq/100 mL 20 mEq INTRAVENOUS PRN sodium phosphate 45 mmol in NaCl 0.9% 250 mL 45 mmol INTRAVENOUS PRN(NO DISPENSE) magnesium sulfate in water 2 g in sterile water 50 ml 2 g INTRAVENOUS PRN(NO DISPENSE) piperacillin-tazobactam 3.375 g in dextrose (iso-osmotic) 50 mL (ZOSYN) 3.375 g INTRAVENOUS q 6 H oxyCODONE 5-10 mg oral liquid (ROXICODONE) 5-10 mg ORAL q 4 H PRN amLODIPine 10 mg tab(s) (NORVASC) 10 mg ORAL DAILY Objective PHYSICAL EXAM: VITALS:BP 108/50 Pulse 69 Temp 36.7 ?C (98.1 ?F) (Oral) Resp 18 Ht 195.6 cm (6' 5.01) Wt 117 kg (258 lb) SpO2 96% BMI 30.59 kg/m? ABDOMEN: Soft, non tender, non distended DATA: Diagnostic tests reviewed for today's visit: Most recent labs and imaging results. Most recent labs Impression/Recommendations ? 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 EGD/EUS: 09/19- large gastric ulcer seen. FNA samples taken from pancreatic mass (EUS reports mass in the head while on CT, it was in the tail) 1) Follow up FNA samples 2)Check H pylori stool Ag is IgG Ab positive ( Ab will not differentiate accurately whether he had infection in the past or has active infection). If Ab negative, no need to check stool Ag. Also, there is a concern the ulcer might be from pancreatic mass eroding into the wall 3) Continue protonix 40 mg daily GI consult service will sign off. Please call us back with questions if needed SIGNATURE: Roni Solorzano MD PATIENT NAME: Evans Newell DATE: September 20, 2017 TIME: 6:13 AM PAGER/CONTACT #: [phone] BASIC METABOLIC PANL Collected: 09/19/2017 Status: F Source: [place] 10:49 PM [facility] [place] REPOSITORY TYPE CODE TESTS RESULT OUT OF REFERENCE UNITS RANGE LAB GLU 74-99 mg/dL High Glucose 130 Result Comment: The [place] Diabetes Association (ADA) provides guidance for cutoff values for fasting glucose and random glucose. The ADA defines fasting as no caloric intake for at least 8 hours. Fas ting plasma glucose results between 100 to 125 mg/dL indicate increased risk for diabetes (prediabetes). Fasting plasma glucose results greater than or equal to 126 mg/dL meet the criteria for diagnosis of diabetes. In the absence of unequivocal hyperglycemia, results should be confirmed by repeat testing. In a patient with classic symptoms of hyperglycemia or hyperglycemic crisis, random plasma glucose results greater than or equal to 200 mg/dL meet the criteria for diagnosis of diabetes. Reference: Standards of Medical Care in Diabetes 2016, [place] Diabetes Association. Diabetes Care. 2016.39(Suppl 1). LAB BUN 9-24 mg/dL BUN Low 6 LAB CRET 0.73-1.22 mg/dL Creatinine Low 0.62 LAB NA 136-144 mmol/L Sodium Low 133 LAB K 3.7-5.1 mmol/L Potassium 3.8 LAB CL 97-105 mmol/L Chloride 97 LAB CO2 22-30 mmol/L CO2 23 LAB AGAP 9-18 mmol/L Anion Gap 13 LAB CA 8.5-10.2 mg/dL Calcium, Low Total 8.0 LAB GFRAA eGFR- Amer. >60 LAB GFRNAA . eGFR-All Other Races >60 Result Comment: eGFR (Estimated GFR) Units of measure: mL/min/1.73 meters squared eGFR is derived from the reexpressed MDRD Study equation using the following parameters: serum creatinine, age, gender and race. The creatinine assay has been calibrated to be traceable to IDMS. An eGFR <60 mL/min/1.73m2 for >3 months is consistent with chronic kidney disease. Refer to KDOQI guidelines for clinical interpretation. In patients with unstable renal function, e.g. those with acute kidney injury, the eGFR may not accurately reflect actual GFR. Performed By: #### BMP, CRP, CBCDIF, CA199, CEA, HPYLRI #### [facility] [address] [place], [place] [address] C-REACTIVE PROTEIN Collected: 09/19/2017 Status: F Source: [place] 10:49 PM [facility] REPOSITORY TYPE CODE TESTS RESULT OUT OF REFERENCE UNITS RANGE LAB CRP <0.9 mg/dL High C-Reactive 11.8 Protein Performed By: #### BMP, CRP, CBCDIF, CA199, CEA, HPYLRI #### [facility] [address] [place], [place] [address] CBC AND DIFFERENTIAL Collected: 09/19/2017 Status: F Source: [place] 10:49 PM [facility] REPOSITORY TYPE CODE TESTS RESULT OUT OF REFERENCE UNITS RANGE LAB WBC 3.70-11.00 k/uL WBC High 15.64 LAB RBC 4.20-6.00 m/uL RBC Low 4.02 LAB HGB 13.0-17.0 g/dL Hemoglobin Low 10.9 LAB HCT 39.0-51.0 % Hematocrit Low 34.4 LAB MCV 80.0-100.0 fL MCV 85.6 LAB MCH 26.0-34.0 pG MCH 27.1 LAB MCHC 30.5-36.0 g/dL MCHC 31.7 LAB RDWCV 11.5-15.0 % RDW-CV 14.9 LAB PLTCT 150-400 k/uL Platelet Count High 536 LAB MPV 9.0-12.7 fL MPV 10.9 LAB ANEUT % Neut% 88.7 LAB AANEUT 1.45-7.50 k/uL Abs Neut High 13.87 LAB ALYMP % Lymph% 2.6 LAB AALYMP 1.00-4.00 k/uL Abs Lymph Low 0.41 LAB AMONO % Limestone% 7.8 LAB AAMONO <0.87 k/uL Abs [place] High 1.22 LAB AEOS % Eosin% 0.0 LAB AAEOS <0.46 k/uL Abs Eosin 0.00 LAB ABASO % Baso% 0.0 LAB AABASO <0.11 k/uL Abs Baso 0.00 LAB AMYELO % Myelo% 0.9 LAB LFTIMI Left Shift Present LAB POLIMI Polychromasia Slight LAB RBCMOR Red Cell Morph SEE COMMENT Result Comment: Unremarkable LAB PLTEST Platelet Platelet Estimate estimate increased LAB DTYP DTYPE Manual Diff Performed By: #### BMP, CRP, CBCDIF, CA199, CEA, HPYLRI #### [facility] [address] [place] [id number] CA 19-9 Collected: 09/19/2017 Status: F Source: [place] 10:49 PM [facility] REPOSITORY TYPE CODE TESTS RESULT OUT OF RANGE REFERENCE UNITS LAB CA199 <36 U/mL CA 19-9 <2 Result Comment: Test analyzed by the Bobby DxI method. Performed By: #### BMP, CRP, CBCDIF, CA199, CEA, HPYLRI #### [place] [address] CEA Collected: 09/19/2017 Status: F Source: [place] 10:49 PM [facility] REPOSITORY TYPE CODE TESTS RESULT OUT OF RANGE REFERENCE UNITS LAB CEA 0.0-2.9 ng/mL High CEA 4.2 Result Comment: Test analyzed by the Bobby DxI method. Performed By: #### BMP, CRP, CBCDIF, CA199, CEA, HPYLRI #### [place] [id number] HELICO PYLORI AB Collected: 09/19/2017 Status: F Source: [place] 10:49 PM [facility] REPOSITORY TYPE CODE TESTS RESULT OUT OF RANGE REFERENCE UNITS LAB HPYLRL Negative Abnormal H. pylori Equivocal Alert IgG, Qual Result Comment: Subsequent sample should be drawn one to two weeks later to confirm the result, or to determine if seroconversion has occurred. Result rechecked. LAB HPYLR U/mL H pylori Ab, IgG 1.0 Result Comment: U/mL are interpreted as follows: Negative specimens <0.9 Indeterminate specimens >=0.9 to <1.1 Positive specimens >=1.1 Results were obtained with the IMMULITE 2000 H.pylori IgG EIA. Results obtained from other manufacturers' assay methods may not be used interchangeably. Result rechecked. Performed By: #### BMP, CRP, CBCDIF, CA199, CEA, HPYLRI #### [facility] [address] [place], [place] [address] XR ABDOMEN 1V SUPINE Observed: 09/19/2017 Status: F Source: [place] 8:02 PM [facility] REPOSITORY * * *Final Report* * * DATE OF EXAM: Sep 19 2017 8:02PM SELIN 5289 - XR ABDOMEN 1V SUPINE / PROCEDURE REASON: Patient has nasogastric tube * * * * Physician Interpretation * * * * ABDOMEN, 1 VIEW CLINICAL INFORMATION: Feeding tube placement. DATE: 09/19/2017At 1958 hours TECHNIQUE: Supine abdomen 1 image(s) RESULT: See impression IMPRESSION: There is a feeding tube , its tip is in the mid gastric body. There are no dilated loops of bowel. Airline Lounge Receptionist: ROSLYN Transcribe Date/Time: Sep 19 2017 8:34P Dictated by : GEORGI GIBBS MD This examination was interpreted and the report reviewed and electronically signed by: GEORGI GIBBS MD on Sep 19 2017 8:34PM EST [id number] [id number] POST Observed: 09/19/2017 Status: COMPLETED Source: [place] 4:46 PM [facility] REPOSITORY HNO ID: [id number] Author: Hari Garay Service: Anesthesiology Author Type: Anesthesiologist Type: Anesthesia PostOp Filed: 09/19/2017 4:50 PM Note Text: POST ANESTHESIA EVALUATION NOTE SERVICE DATE: 09/19/2017 SERVICE TIME: 4:49 PM : 1960 Vitals: 09/18/17214909/19/174 09/19/17 0609 09/19/17 0942 Temp: 37.1 ?C (98.7 ?F) 36.9 ?C (98.4 ?F) 36.9 ?C (98.5 ?F) 36.7 ?C (98.1 ?F) 09/18/17214909/19/1711309/19/17 0609 09/19/17 0942 BP: 116/64 110/59 108/56 115/63 09/18/17214909/19/17 0114 09/19/17 0609 09/19/17 0942 Pulse: 68 70 66 64 09/18/170 09/19/17 0114 09/19/17 0609 09/19/17 0942 Resp: 16 16 16 16 09/18/17214909/19/17 0114 09/19/17 0609 09/19/17 0942 SpO2: 96% 98% 97% 95% Validated Vital Signs: HR: 65; BP: 100/52; RR: 14; SpO2%: 96; Temperature: 36.5 POST ANES STATUS: No apparent anesthetic complications. The patient is appropriately hydrated with stable respiratory and cardiovascular status. Patient has safe and adequate airway control. The patient has appropriate pain relief and no significant post operative nausea or vomiting. The patient has achieved baseline mental status. Further assessment by Anesthesia Service: None Other Remarks: SIGNATURE: Hari Garay MD PATIENT NAME: Evans Newell DATE: September 19, 2017 TIME: 4:46 PM PAGER/CONTACT #: [phone] NURSING PROG Observed: 09/19/2017 Status: COMPLETED Source: [place] 4:40 PM [facility] REPOSITORY O ID: [id number] Author: Francesco Macedo (Rn), RN Service: (none) Author Type: Registered Nurse Type: Nursing Progress Note Filed: 09/19/2017 6:54 PM Note Text: Nursing Progress Note Patient Name: Evans Newell Patient Location: [facility] [place] paged [phone] notifying patient is on way back from scope. [place] [phone]. Awaiting further communication. 1714: paged [phone] trying to obtain orders for xray to confirm placement of corpak as well as someone to speak with patient and family regarding questions of endoscopy. Awaiting further communication. 1722: paged [phone] since this RN has not received any communication after 2 pages since patient has returned from scope. Awaiting further response. 1854: paged [phone] with this message : Palfenier- pt is gen surg, have paged since [phone] no response yet. [phone] [phone] This note was completed by: Francesco Macedo RN CYTOLOGY Observed: 09/19/2017 Status: F Source: [place] 4:11 PM [facility] REPOSITORY Specimen originated from [facility] Specimen #: [id number] Submitting Physician: AAYUSH VIGIL M.D. ([id number]) SPECIMEN SUBMITTED A: PANCREAS, FINE NEEDLE ASPIRATE(THINPREP, SMEARS AND CELL BLOCK) FINAL DIAGNOSIS A. PANCREAS, FINE NEEDLE ASPIRATE (THINPREP, SMEARS AND CELL BLOCK) Positive for malignant cells. Adenocarcinoma. Comment: Drs. Dean Cruz and Satnam Spencer have also reviewed this case and agree with the interpretation. Juanito Cifuentes MD (Electronic Signature) CLINICAL DATA Pancreatic body mass GROSS DESCRIPTION 30cc hazy red Cytolyt with material and 6 smears STAINS A: PANCREAS, FINE NEEDLE ASPIRATE(THINPREP, SMEARS AND CELL BLOCK) SMEARS RECEIVED x 6, THIN PREP Non-Systems Development Consultant, CELL BLOCK, H&E, Initial Date of Report: 09/21/2017 Date of Procedure: 09/19/2017 Date of Receipt: 09/19/2017 Submitted by: AAYUSH VIGIL M.D. ([id number]) Additional Physician(s): ELIJAH GARCIA MD Location: Q31 Diagnostic interpretation performed at [facility], [address] [place] [id number]. [facility] TEST Collected: 09/19/2017 Status: F Source: [place] 10:45 AM [facility] REPOSITORY TYPE CODE TESTS RESULT OUT OF REFERENCE UNITS RANGE LAB NAME1 Test [facility] RESU1 View Test Results results in Scanned Documents link when available. Performed By: #### [id number] #### [facility] [employer] [address] [place], [place] [address] PROGRESS Observed: 09/19/2017 Status: COMPLETED Source: [place] 8:54 AM [facility] REPOSITORY HNO ID: [id number] Author: Jose Esparza (Res)MD Service: General Surgery Author Type: Resident Type: Progress Notes Filed: 09/19/2017 9:00 AM Note Text: [facility] PROGRESS NOTE: ? Patient Name: Evans Newell ? PRIMARY SERVICE: General Surgery ? ASSESSMENT AND PLAN: 57 year old male s/p cholecystectomy with intra-abdominal fluid collection, history of pancreatitis. - Fluid collection aspirated without any signs of infection - Continue antibiotics - Planned Repeat EUS scheduled today with corpak placement, ok for GIS after - Protein supplements - Creon - Ambulate - Will likely need distal panc/splenectomy at some point (discussed at [facility] conference today and recommended for EUS to eval for mass however unlikely, and may need distal panc for smoldering pancreatitis). Splenectomy vaccines already done INTERVAL HPI: No new issues ? PHYSICAL EXAM: BP 108/56 Pulse 66 Temp 36.9 ?C (98.5 ?F) (Oral) Resp 16 Ht 195.6 cm (6' 5.01) Wt 117 kg (258 lb) SpO2 97% BMI 30.59 kg/m? Gen: NAD Pulm: Non-labored breathing, chest rise symmetric Abd: soft, NT, ND Ext: MARLOW spontaneously Neuro: Answering questions appropriately TYPE AND SCREEN Collected: 09/19/2017 Status: F Source: [place] 8:51 AM [facility] REPOSITORY TYPE CODE TESTS RESULT OUT OF REFERENCE UNITS RANGE LAB %ABR A ABO/RH(D) POSITIVE LAB % Antibody NEG Screen Performed By: #### TSCR #### [facility] [employer] [address] [place], [place] [address] CBC AND DIFFERENTIAL Collected: 09/19/2017 Status: F Source: [place] 3:58 AM [facility] REPOSITORY TYPE CODE TESTS RESULT OUT OF REFERENCE UNITS RANGE LAB WBC 3.70-11.00 k/uL WBC High 15.67 LAB RBC 4.20-6.00 m/uL Low RBC 3.68 LAB HGB 13.0-17.0 g/dL Low Hemoglobin 10.0 LAB HCT 39.0-51.0 % Low Hematocrit 31.4 LAB MCV 80.0-100.0 fL MCV 85.3 LAB MCH 26.0-34.0 pG MCH 27.2 LAB MCHC 30.5-36.0 g/dL MCHC 31.8 LAB RDWCV 11.5-15.0 % RDW-CV 14.9 LAB PLTCT 150-400 k/uL Platelet High Count 423 LAB MPV 9.0-12.7 fL MPV 10.8 LAB ANEUT % Neut% 79.0 LAB AANEUT 1.45-7.50 k/uL Abs Neut High 12.38 LAB ALYMP % Lymph% 7.6 LAB AALYMP 1.00-4.00 k/uL Abs Lymph 1.19 LAB AMONO % Limestone% 10.3 LAB AAMONO <0.87 k/uL Abs [place]estone High 1.62 LAB AEOS % Eosin% 2.9 LAB AAEOS <0.46 k/uL Abs Eosin 0.45 LAB ABASO % Baso% 0.2 LAB AABASO <0.11 k/uL Abs Baso 0.03 LAB AUNRBC 0 /100 WBC NRBCs 0.0 LAB ABNRBC <0.01 k/uL Absolute nRBC <0.01 LAB DTYP DTYPE Auto Diff Performed By: #### CBCDIF, CMP, MG1 #### [facility] [address] [place] [address] COMP METABOLIC PANEL Collected: 09/19/2017 Status: F Source: [place] 3:58 AM [facility] REPOSITORY TYPE CODE TESTS RESULT OUT OF REFERENCE UNITS RANGE LAB TP 6.3-8.0 g/dL Low Protein, Total 5.3 LAB ALB 3.9-4.9 g/dL Low Albumin 2.2 LAB CA 8.5-10.2 mg/dL Low Calcium, Total 8.1 LAB TBIL 0.2-1.3 mg/dL Bilirubin, Total 0.9 LAB ALKP 36-108 U/L Alkaline High Phosphatase 196 LAB AST 14-40 U/L AST 28 LAB GLU 74-99 mg/dL Glucose High 118 Result Comment: The [place] Diabetes Association (ADA) provides guidance for cutoff values for fasting glucose and random glucose. The ADA defines fasting as no caloric intake for at least 8 hours. Fas ting plasma glucose results between 100 to 125 mg/dL indicate increased risk for diabetes (prediabetes). Fasting plasma glucose results greater than or equal to 126 mg/dL meet the criteria for diagnosis of diabetes. In the absence of unequivocal hyperglycemia, results should be confirmed by repeat testing. In a patient with classic symptoms of hyperglycemia or hyperglycemic crisis, random plasma glucose results greater than or equal to 200 mg/dL meet the criteria for diagnosis of diabetes. Reference: Standards of Medical Care in Diabetes 2016, [place] Diabetes Association. Diabetes Care. 2016.39(Suppl 1). LAB BUN 9-24 mg/dL BUN 9 LAB CRET 0.73-1.22 mg/dL Creatinine 0.77 LAB NA 136-144 mmol/L Sodium 136 LAB K 3.7-5.1 mmol/L Potassium 4.4 LAB CL 97-105 mmol/L Chloride 99 LAB CO2 22-30 mmol/L CO2 29 LAB AGAP 9-18 mmol/L Anion Gap Low 8 LAB ALT 10-54 U/L ALT 19 LAB GFRAA eGFR- Amer. >60 LAB GFRNAA . eGFR-All Other Races >60 Result Comment: eGFR (Estimated GFR) Units of measure: mL/min/1.73 meters squared eGFR is derived from the reexpressed MDRD Study equation using the following parameters: serum creatinine, age, gender and race. The creatinine assay has been calibrated to be traceable to IDMS. An eGFR <60 mL/min/1.73m2 for >3 months is consistent with chronic kidney disease. Refer to KDOQI guidelines for clinical interpretation. In patients with unstable renal function, e.g. those with acute kidney injury, the eGFR may not accurately reflect actual GFR. Performed By: #### CBCDIF, CMP, MG1 #### [facility] [address] [place], [place] [address] MAGNESIUM Collected: 09/19/2017 Status: F Source: [place] 3:58 AM [facility] REPOSITORY TYPE CODE TESTS RESULT OUT OF REFERENCE UNITS RANGE LAB MG 1.7-2.3 mg/dL Magnesium 1.8 Performed By: #### CBCDIF, CMP, MG1 #### [facility] [address] [place], [place] [address] NUTRITION Observed: 09/18/2017 Status: COMPLETED Source: [place] 11:11 AM [facility] REPOSITORY HNO ID: [id number] Author: Rochelle Skelton (Rd) Service: Nutrition Therapy Author Type: Registered Dietitian Type: Nutrition Filed: 09/18/2017 11:37 AM Note Text: NUTRITION THERAPY INITIAL ASSESSMENT SERVICE DATE: 09/18/2017 SERVICE TIME: 10:30 AM RECOMMENDED MALNUTRITION DIAGNOSIS: MODERATE PROTEIN-CALORIE MALNUTRITION In the context of Acute Illness or Injury based on: Insufficient Energy Intake: <75% for >7 days Subcutaneous Fat Loss: Mild Loss Muscle Loss Mild Loss NUTRITION CARE PLAN: Problem, Etiology and Signs/Symptoms: Suboptimal oral intake related to inability to consume sufficient nutrients 2/2 altered GI function as evidenced by pt/ endorsement of same and mild muscle/fat depletion Intervention: 1. GI soft diet at this time per primary, will monitor tolerance and need for further restriction (fat), lipase WNL 2. Ensure Clear trial, daily provides 240 kcal, 8 g protein 3. Ensure High Protein BID, provides 320 kcal, 32 g protein 4. Continue Creon per primary, closely monitor BM frequency, pt reports historical constipation with higher dosage 5. Recommend Vitamin D level check 6. 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 and Evaluation: Goal: Meet >75% of estimated needs Monitor fluid/electrolyte balance Monitor labs, I/Os, vital signs, weight Discharge Nutrition Recommendations: Diet: GI soft, fat restriction need TBD Supplements: High protein supplementation TID for caloric/protein intake adequacy promotion, poor tolerance to higher fat containing formulas Per HPI: Evans Newell is a 57 year old male with hx of HTN, pancreatitis, pancreatic pseudocysts s/p stents (placed May, removed July), gallstone pancreatitis s/p laparoscopic cholecystectomy with cholangiogram and liver biopsy on 08/24, presenting with 2 days of abdominal pain, N/V, transferred from H ED. At this point pt is mostly dry heaving and unable to tolerate even liquids by mouth. Describes pain as localized to epigastric region, just left of midline, radiating to left back/shoulder, similar to his episodes several months ago. Pt does not believe it is associated with food. Has experienced progressive nausea since shortly after most recent surgery. Denies recent fevers but endorses general malaise and full body aches. WBC at OSH was 26.1, started on zosyn prior to transfer. CT A/P demonstrated new loculated fluid collections along left liver margin within lesser sac, masslike region at body/tail of pancreas, and right liver lobe nodule increased in size. Differentials included pseudocyst and/or abscess, hronic pancreatitis, pancreatic necrosis, complex pseudocyst or pancreatic mass. Lipase 82 at OSH. Last BM yesterday was well formed, still passing gas. Denies recent fevers, chills, SOB, chest pain, N/V or diarrhea, weakness, dizziness, changes in urination or bowel habits, or new swelling. PAST MEDICAL HISTORY Diagnosis Date - History of gallstones - HTN (hypertension) - Pancreatic pseudocyst 05/16/2017 - Pancreatitis - Psychiatric disorder anxiety CT abd/pelvis results: IMPRESSION: ? There are loculated complex fluid collections located along the margin of the left ?lobe of the liver, between the stomach and pancreas and within the lesser sac. ? These collections are new since the prior CT. ?The differential for these collections would include pseudocyst and/or abscess. ? There is a 5.5 cm x 3.3 cm low-attenuation masslike area within the body/tail of the pancreas. ?This area is larger than on the prior CT. ?Differential for this would include an area of chronic pancreatitis, pancreatic necrosis, complex pseudocyst or pancreatic mass. ?There is mild stranding of the fat adjacent to the ?body/tail of the pancreas and pancreatitis cannot be excluded. ?Correlation with lipase levels is recommended. ? There is a 1.9 cm nodule posterior to the right lobe of the liver. ?This may represent an additional small fluid collection. ?This nodule has increased in size ?since the prior CT. ?Attention on follow-up studies is recommended. ? Bilateral renal cysts. Present Diet Order: Gastrointestinal GISoft Enteral Access: None Nutritional Intake Prior to Admission: <75% estimated energy needs over the past 3+ month(s) -Pt seen at bedside with who endorses a poor intake since April when all this started. States that he has his good days and bad but more have been bad lately. Attributes drop in appetite primarily to N/V and c/o feeling nauseous every time I eat. Endorses consistently dry heaving throughout night as well. Reports progressive weight loss since April as well which appears accurate per EMR weight history review. Does report symptom improvement with Creon but apprehensive about 3 tablet dosage 2/2 previous c/o constipation. Does admit to inconsistent intake and subjective reports of inadequate fluid intake. Has been self dosing Creon (1 tablet with small meals, 2 tablets with large meals). Also c/o reflux like symptoms. Findings suspicious for [place]'s during EGD in May. Started on Nexium at end of August. Pt has trialed multiple supplements but has noticed the higher protein ones (i.e Muscle Milk) are better tolerated. GI symptoms: nausea, vomiting, early satiety and constipation Abdominal Exam: abdomen is distended Is the patient having any pain that is interfering with oral/enteral intake? Yes LOCATION: abdomen ANTHROPOMETRICS Height: 195.6 cm (6' 5.01) Admission Weight: 116.2 kg (256 lb 3.2 oz) Current Weight: 117 kg (258 lb) Body mass index is 30.59 kg/m?. class 1 obesity Weight has decreased by 4.6 kg over 1 months representing 3.8% weight change, progressive weight loss notable, but clinically insignificant Last Wt 09/18/17 : 117 kg (258 lb) 09/15/17 : 113.4 kg (250 lb) 08/15/17 : 121.6 kg (268 lb)-3.8% loss x 1 month 05/16/17 : 127.1 kg (280 lb 3.2 oz) 05/16/17 : 128.4 kg (283 lb)-8.9% loss x 4 months 03/13/17 : 129.8 kg (286 lb 1.9 oz) 03/05/17 : 127 kg (280 lb) 01/05/17 : 130 kg (286 lb 11.2 oz) 11/28/16 : 130.7 kg (288 lb 3.2 oz) 07/11/16 : 133.4 kg (294 lb) 02/02/16 : (!) 138.3 kg (305 lb) 01/29/16 : (!) 138.5 kg (305 lb 6.4 oz) 01/27/16 : (!) 138.8 kg (306 lb) [place] body weight: 208 lb (94.5 kg) per [facility] Dosing Weight: 117 kg Resting Metabolic Rate: 2111 Estimated kilocalorie needs: 1368-2840 kilocalories determined by 20-25 kcal/kg Estimated protein needs: 129-176 grams determined by 1.1-1.5 g/kg Dosing weight Estimated fluid needs: 2128-6486 milliliters based on 1 mL per kcal NUTRITION FOCUSED PHYSICAL EXAM: Subcutaneous Fat Loss Orbital Mild Triceps Mild Mid-axillary at the iliac crest No fat loss-Mild Muscle Loss Locations: Temporalis Moderate Pectoralis Unable to determine at this time-h/o broken collarbone Deltoids Mild Interosseous No muscle loss Latissimus dorsi, trapezius Mild Quadriceps Mild Gastrocnemius No muscle loss Potential micronutrient deficiency revealed in: No deficiency identified Edema: No Ascites: No Assessment of Functional Status: Functional capacity is unrelated to nutrition status Temperature Max in 24 hours: Temp (24hrs), Av.1 ?C (98.8 ?F), Min:36.5 ?C (97.7 ?F), Max:37.6 ?C (99.6 ?F) BP 107/59 Pulse 70 Temp 36.9 ?C (98.5 ?F) (Oral) Resp 16 Ht 195.6 cm (6' 5.01) Wt 117 kg (258 lb) SpO2 97% BMI 30.59 kg/m? Recent Labs 09/18/17 0522 09/17/17 0522 09/16/17 0614 GLUC 110* 112* 120* BUN 10 14 21 CREAT 0.78 0.84 0.95 NA 137 137 136 K 4.3 3.8 3.8 CHLOR 97 99 97 CO2 26 27 26 ALB 2.5* 2.5* 2.8* PREALB -- <3* 4* CRP -- 27.8* -- TRANSF -- -- 138* HB 10.2* 9.7* 10.2* HCT 31.8* 30.3* 31.9* WBC 16.65* 17.67* 20.59* P 3.5 -- 2.4* MG 2.0 2.0 2.0 Potential Signs of Inflammation: leukocytosis, hyperglycemia, hypoalbuminemia, low prealbumin, high CRP and imaging studies Intake/Output 09/15/17 0700 - 09/16/17 0659 09/16/17 0700 - 09/17/17 0659 09/17/17 07 - 09/18/17 0659 09/18/17 07 - 09/19/17 0659 Intake (ml) 1450 2450 3875.3 400 Output (ml) 1 800 1275 200 Net (ml) 1449 1650 2600.3 200 Pertinent Medications: Norvasc, Colace, Creon, D5% in 0.45% NS with 20 MEq KCl @ 100 ml/hr provides 408 kcal Surgical Incision Abdomen - Laparoscopy Sites (Active) MNT Billing Type: Initial Assess/15 min 4 units SIGNATURE: Rochelle Skelton RD PATIENT NAME: Evans Newell DATE: September 18, 2017 TIME: 11:12 AM PAGER: [phone] CASE MGT INIT Observed: 09/18/2017 Status: COMPLETED Source: [facility] 10:20 AM [facility] [place] REPOSITORY HNO ID: [id number] Author: Pietro Patel (Rn), RN Service: Care Management Author Type: Registered Nurse Type: Care Mgt Initial Assessment Filed: 09/18/2017 10:42 AM Note Text: CARE MANAGEMENT: ASSESSMENT AND DISCHARGE PLAN SERVICE DATE: 09/18/2017 SERVICE TIME: 1022 PRIMARY CARE PHYSICIAN: Yohana Dolan ADMISSION STATUS: Inpatient Needs Prior to Discharge: None 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 No Advance Directive: Current Advance Directive: None [place] Operator Assisted with AD Completion: No Unable to Assist Due To:: Other: See Comment (Pt declines. States has documents, just not with him. is surrogate decision maker which is in line / [place] hierarchy.) Health Literacy: 1. How often do you need to have someone help you when you read instructions, pamphlets, or other written material from your doctor or pharmacy? Never - 1 2. How confident are you filling out medical forms by yourself? Extremely - 1 If Patient scores > 3 on either question, the following interventions were put into place: Patient did not score > 3 FUNCTIONAL AND COGNITIVE/BEHAVIORAL PRIOR TO ADMISSION: Baseline Mental Status: Alert AND Oriented, Person, Place , Time and Situation Functional Status: Independent Does Patient Currently Receive Any Community Services or Home Care? None Equipment Prior to Admission: None Has the Patient Been in a Jail Facility in the Past 30 days? 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 No Caregiver Needed Patient's transition needs and plan for meeting these needs: no CM facilitated needs currently identified Does the patient have an acute stroke diagnosis, or has the patient had a stroke during this admission? No Medication Adherence: I am convinced of the importance of my prescription medication: Agree completely - 0 I worry that my prescription medication will do more harm than good to me Disagree completely - 0 I feel financially burdened by my gym-eu-gtqwik expenses for my prescription medication: Disagree completely - 0 Patient is categorized as low risk < 2 Are you interested in bedside delivery of your medications? No Food Concerns: In the Last Month, Have You had Trouble Getting Food? No trouble getting food During the Last Month, Have You Worried Whether Your Food Would Run Out Before You Had Enough Money to Buy More? No Is the Patient Psychosocially Complex? No ASSESSMENT AND PLAN: Medical Needs: None Psychosocial Needs: None FREEDOM OF CHOICE EXPLAINED: N/A POTENTIAL TRANSITION PLANS No Services Indicated Pt admitted for 2 days of abdominal pain, N/V, transferred from OSH ED. EGD EUS scheduled for 09/19/17. Pt seen at bedside, present. 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 Denies use of home care services or assistive equipment. Pt is employed. No skilled needs are currently identified. CM will continue to follow. SIGNATURE: Pietro Patel RN PATIENT NAME: Evans Newell DATE: September 18, 2017 TIME: 10:22 AM PAGER/CONTACT #: [phone] PROGRESS Observed: 09/18/2017 Status: COMPLETED Source: [place] 9:54 AM [facility] REPOSITORY HNO ID: [id number] Author: Elijah Casanova Service: General Surgery Author Type: Physician Type: Progress Notes Filed: 09/18/2017 12:15 PM Note Text: [facility]B PROGRESS NOTE: ? Patient Name: Evans Newell ? PRIMARY SERVICE: General Surgery ? ASSESSMENT AND PLAN: 57 year old male s/p cholecystectomy with intra-abdominal fluid collection, history of pancreatitis. - Fluid collection aspirated without any signs of infection, likely hematoma - Continue antibiotics - Planned Repeat EUS scheduled tomorrow. GIS and NPO after MN for procedure - Protein supplements - Creon x1 (patient has been on this before and states it helps his symptoms) - Ambulate - Will likely need distal panc/splenectomy at some point. Splenectomy vaccines today INTERVAL HPI: No new issues ? PHYSICAL EXAM: BP 116/60 Pulse 71 Temp 37.6 ?C (99.6 ?F) (Oral) Resp 18 Ht 195.6 cm (6' 5.01) Wt 117 kg (258 lb) SpO2 96% BMI 30.59 kg/m? Gen: NAD Pulm: Non-labored breathing, chest rise symmetric Abd: Softer today, NT, ND Ext: MARLOW spontaneously Neuro: Answering questions appropriately Eren Cunha MD General Surgery, PGY-2 Pager: [phone]. Please contact [phone] after 6PM weekdays and on weekends September 18, 2017 9:59 AM [facility] STAFF PHYSICIAN NOTE OF PERSONAL INVOLVEMENT IN CARE I have reviewed the progress note obtained and documented by the resident and I personally participated in the batista components. I have discussed the case and management of the patient's care. The following comments revise or confirm relevant batista components of the note. IMPRESSION: This is a 57 year old admitted with post manasa pancreatitis possible pancreatic tail lesion PLAN: EGD assessment with EUS tomorrow. Away cultures. Care Coordination The majority of the visit was spent counseling and/or coordinating care for the patient. Appl-np-ngim time was 15 minutes Elijah Macedo MD Date of Service: September 18, 2017 Time of Service: 12:15 PM PROTIME Collected: 09/18/2017 Status: F Source: [place] 5:22 AM [facility] REPOSITORY TYPE CODE TESTS RESULT OUT OF RANGE REFERENCE UNITS LAB PSEC 9.7-13.0 sec PT Sec 12.2 LAB INR 0.9-1.3 PT INR 1.2 Result Comment: Vitamin K Antagonist (VKA) Therapeutic Range: INR 2 to 3 (Target INR of 2.5) Note: For patients treated with VKA drugs, such as warfarin, the [place] [employer] 2012 Guideline recommends a therapeutic INR range of 2 to 3 (target INR of 2.5). This recommendation includes high-risk patients with antiphospholipid syndrome with previous arterial or venous thromboembolism, current-generation mechanical or bioprosthetic aortic heart valve replacement. Note: Patients with mechanical aortic valve replacement and additional risk factors for thromboembolic events (atrial fibrillation, previous thromboembolism, LV dysfunction, hypercoagulable conditions) or an older generation mechanical AVR (i.e., ball in-Cage) or any mechanical MVR should have a INR therapeutic range of 2.5 to 3.5 (target INR of 3). Altagracia GH, et al. Chest 2012, 141:7S-47S Julita RA, et al. [facility] 2017, 70: 252-289 Performed By: #### PT, PTT, CMP, MG1, PHOS, CBCDIF #### [facility] [address] [address] APTT Collected: 09/18/2017 Status: F Source: [place] 5:22 AM [facility] REPOSITORY TYPE CODE TESTS RESULT OUT OF RANGE REFERENCE UNITS LAB APTT 23.0-32.4 sec APTT 27.8 Result Comment: Unfractionated Heparin Therapeutic Ranges: Standard Heparin Nomogram: 53 to 78 seconds (anti-Xa level of 0.3 to 0.7 U/ml) Low Dose/ACS Nomogram: 49 to 67 seconds (anti-Xa level of 0.2 to 0.5 U/ml) Stroke Treatment Nomogram: 49 to 67 seconds (anti-Xa level of 0.2 to 0.5 U/ml) Note: The APTT therapeutic range has been determined for the current lot of laboratory APTT reagent in use throughout the [facility]. Performed By: #### PT, PTT, CMP, MG1, PHOS, CBCDIF #### [facility] [address] [place], [place] [address] COMP METABOLIC PANEL Collected: 09/18/2017 Status: F Source: [place] 5:22 AM [facility] REPOSITORY TYPE CODE TESTS RESULT OUT OF REFERENCE UNITS RANGE LAB TP 6.3-8.0 g/dL Low Protein, Total 5.9 LAB ALB 3.9-4.9 g/dL Low Albumin 2.5 LAB CA 8.5-10.2 mg/dL Low Calcium, Total 8.2 LAB TBIL 0.2-1.3 mg/dL Bilirubin, Total 1.0 LAB ALKP 36-108 U/L Alkaline High Phosphatase 192 LAB AST 14-40 U/L AST 23 LAB GLU 74-99 mg/dL Glucose High 110 Result Comment: The [place] Diabetes [employer] (ADA) provides guidance for cutoff values for fasting glucose and random glucose. The ADA defines fasting as no caloric intake for at least 8 hours. Fas ting plasma glucose results between 100 to 125 mg/dL indicate increased risk for diabetes (prediabetes). Fasting plasma glucose results greater than or equal to 126 mg/dL meet the criteria for diagnosis of diabetes. In the absence of unequivocal hyperglycemia, results should be confirmed by repeat testing. In a patient with classic symptoms of hyperglycemia or hyperglycemic crisis, random plasma glucose results greater than or equal to 200 mg/dL meet the criteria for diagnosis of diabetes. Reference: Standards of Medical Care in Diabetes 2016, [place] [employer]. Diabetes Care. 2016.39(Suppl 1). LAB BUN 9-24 mg/dL BUN 10 LAB CRET 0.73-1.22 mg/dL Creatinine 0.78 LAB NA 136-144 mmol/L Sodium 137 LAB K 3.7-5.1 mmol/L Potassium 4.3 LAB CL 97-105 mmol/L Chloride 97 LAB CO2 22-30 mmol/L CO2 26 LAB AGAP 9-18 mmol/L Anion Gap 14 LAB ALT 10-54 U/L ALT 20 LAB GFRAA eGFR- Amer. >60 LAB GFRNAA . eGFR-All Other Races >60 Result Comment: eGFR (Estimated GFR) Units of measure: mL/min/1.73 meters squared eGFR is derived from the reexpressed MDRD Study equation using the following parameters: serum creatinine, age, gender and race. The creatinine assay has been calibrated to be traceable to IDMS. An eGFR <60 mL/min/1.73m2 for >3 months is consistent with chronic kidney disease. Refer to KDOQI guidelines for clinical interpretation. In patients with unstable renal function, e.g. those with acute kidney injury, the eGFR may not accurately reflect actual GFR. Performed By: #### PT, PTT, CMP, MG1, PHOS, CBCDIF #### [facility] [address] [place], [place] [address] MAGNESIUM Collected: 09/18/2017 Status: F Source: [place] 5:22 AM [facility] REPOSITORY TYPE CODE TESTS RESULT OUT OF REFERENCE UNITS RANGE LAB MG 1.7-2.3 mg/dL Magnesium 2.0 Performed By: #### PT, PTT, CMP, MG1, PHOS, CBCDIF #### [facility] [address] [id number] PHOSPHORUS Collected: 09/18/2017 Status: F Source: [place] 5:22 [facility] REPOSITORY TYPE CODE TESTS RESULT OUT OF REFERENCE UNITS RANGE LAB PHOS 2.7-4.8 mg/dL Phosphorus 3.5 Performed By: #### PT, PTT, CMP, MG1, PHOS, CBCDIF #### [facility] [address] [place] [address] CBC AND DIFFERENTIAL Collected: 09/18/2017 Status: F Source: [place] 5:[address] [place] [address] REPOSITORY TYPE CODE TESTS RESULT OUT OF REFERENCE UNITS RANGE LAB WBC 3.70-11.00 k/uL WBC High 16.65 LAB RBC 4.20-6.00 m/uL RBC Low 3.69 LAB HGB 13.0-17.0 g/dL Hemoglobin Low 10.2 LAB HCT 39.0-51.0 % Hematocrit Low 31.8 LAB MCV 80.0-100.0 fL MCV 86.2 LAB MCH 26.0-34.0 pG MCH 27.6 LAB MCHC 30.5-36.0 g/dL MCHC 32.1 LAB RDWCV 11.5-15.0 % RDW-CV High 15.1 LAB PLTCT 150-400 k/uL Platelet High Count 430 LAB MPV 9.0-12.7 fL MPV 10.8 LAB ANEUT % Neut% 86.1 LAB AANEUT 1.45-7.50 k/uL Abs Neut High 14.34 LAB ALYMP % Lymph% 6.1 LAB AALYMP 1.00-4.00 k/uL Abs Lymph 1.02 LAB AMONO % Limestone% 6.1 LAB AAMONO <0.87 k/uL Abs [place] High 1.02 LAB AEOS % Eosin% 1.7 LAB AAEOS <0.46 k/uL Abs Eosin 0.28 LAB ABASO % Baso% 0.0 LAB AABASO <0.11 k/uL Abs Baso 0.00 LAB ANIIMI Anisocytosis Present LAB PLTEST Platelet Estimate Platelet estimate increased LAB DTYP DTYPE Manual Diff Performed By: #### PT, PTT, CMP, MG1, PHOS, CBCDIF #### [facility] [address] [place], [place] [address] CONSULT Observed: 09/17/2017 Status: COMPLETED Source: [place] 1:55 PM [facility] REPOSITORY HNO ID: [id number] Author: Roni Solorzano (MD Cheryl Service: Gastroenterology Author Type: Fellow Type: Consults Filed: 09/18/2017 6:44 AM Note Text: INITIAL CONSULT GASTROENTEROLOGY SERVICE DATE: 09/17/2017 SERVICE TIME: 1:55 PM Consulting Service: General Surgery Opinion/advice regarding: Need for EUS Subjective HPI: This is a 57 year old male with PMH significant for HTN, 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 The patient was noted to have elevated WBC count of 26 on admission and was started on zosyn. He has been afebrile since being here and cultures are negative. CRP is 27.8. CT abdomen with IV contrast was done that showed loculated fluid collections between liver and stomach and liver and abdominal wall. Complex fluid tracking between pancreas and stomach and extending into lesser sac was also seen. In addition, low density masslike area within pancreatic body and tail measuring 5.5 X 3.3 cm was also seen (looking at CT from 05/2017, 3.6 cm ill defined low attenuation area within pancreatic tail also seen). As there was a concern for infected collection, aspiration of collection was attempted in Radiology but given high density of material, it could not be aspirated and hematoma was suspected. Patient is currently tolerating liquids. CT abdomen: 09/15/2017 Liver: No mass. ?There are several geographic shaped areas of enhancement within the liver favored to represent areas of transient hepatic attenuation difference. ?There are loculated fluid collections along the margin of the left lobe of the liver between the liver and stomach and liver and abdominal wall. ?These collections measure 4.8 cm x 2.4 cm series 2 image 17 and 3.8 cm x 3.6 cm series 2 ?image 24. ?There is additional fluid tracking along the left lateral margin of the liver. ?There is a 1.9 cm low-density nodule along the posterior margin of the ?right lobe of the liver series 2 image 41, increased in size from prior CT.. EUS: 06/07/2017 Findings: ? ? ?Endoscopic Finding : ? ? ?The Z-line was irregular and was found 39 cm from the incisors. ? ? ?There were esophageal mucosal changes suspicious for Washington's esophagus ? ? ?present in the lower third of the esophagus. The maximum longitudinal ? ? ?extent of these mucosal changes was 1 cm in length. ? ? ?A deformity was found in the gastric fundus and at the pylorus due to ? ? ?the indentation from the walled of pancreatic collection. The decision ? ? ?was made to create a cystogastrostomy using the Hot AXIOS stent system. ? ? ?Once an appropriate position in the stomach was identified, the common ? ? ?wall between the stomach and the cyst was interrogated utilizing color ? ? ?Doppler imaging to identify interposed vessels. The stomach wall and the ? ? ?cyst were punctured under endosonographic guidance. The AXIOS stent and ? ? ?electrocautery device was introduced through the working channel and ? ? ?advanced. Current was applied to the cautery tip to enter the cyst ? ? ?cavity. The AXIOS device was advanced into the cyst, and a 15 x 10 mm ? ? ?AXIOS stent was placed with the flanges in close approximation to the ? ? ?ren of the cyst and the stomach through the cystogastrostomy. 1700 cc ? ? ?of greenish brown fluid was suctioned. ? ? ?The examined duodenum was normal. CT abdomen: 05/16/2017 1. ?3.6 cm round heterogeneous ill-defined low-attenuation area within pancreatic tail with small focal area of pancreatic ductal dilatation: 10 mm. Findings suspicious for pancreatic neoplasm. Differential diagnosis includes focal pancreatitis. This is contiguous with elongated lobular fluid attenuation collection, with multiple adjacent fluid attenuation collections within central upper abdomen, as described. Findings suggest multiple pseudocysts. It is uncertain whether they communicate. None of them contain gas. PAST MEDICAL HISTORY Diagnosis Date - History of gallstones - HTN (hypertension) - Pancreatic pseudocyst 05/16/2017 - Pancreatitis - Psychiatric disorder anxiety PAST SURGICAL HISTORY Procedure Laterality Date - ANESTHESIA TOTAL HIP ARTHROPLASTY Left 1996 - CHOLECYSTECTOMY 08/24/2017 - EGD 05/2017, 07/2017 - KNEE SCOPE,DIAGNOSTIC Right 02/02/16 Arthroscopy, knee - ORTHOPEDICS SURGERY HX FAMILY HISTORY Problem Relation Age of Onset - Diabetes Father - cardiac [OTHER] Father 82 - liver transplant [OTHER] Mother Hep C after transfusion Social History Substance Use Topics - Smoking status: Never Smoker - Smokeless tobacco: Never Used - Alcohol use 1.5 oz/week 1 Glasses of Wine (5oz) per week MEDICATIONS: Prior to Admission Medications: sucralfate (CARAFATE) 1 gram tablet Take 1 tablet by mouth four times daily for 15 days. Before meals and bedtime esomeprazole (NEXIUM) 40 mg capsule Take 1 capsule by mouth DAILY (6 AM). promethazine (PHENERGAN) 25 mg tablet Take 1 tablet by mouth every 4 hours as needed (for nausea). acetaminophen (TYLENOL) 325 mg tablet Take 2 tablets by mouth every 6 hours as needed. ondansetron orally disintegrating (ZOFRAN ODT) 4 mg tab(s) ER Go-Pack Take 1 tablet by mouth every 8 hours as needed. amLODIPine (NORVASC) 10 mg tablet Take 1 tablet by mouth once daily. clonazePAM (KLONOPIN) 1 mg tablet Take 1 tablet by mouth twice daily as needed for Anxiety for up to 30 days. vxgwjq-ftubjpae-bliwfzy (CREON) 24,000-76,000 -120,000 unit cpDR Take 3 capsules by mouth three times daily with meals. Current hospital medications: acetaminophen 650 mg tab(s) (TYLENOL) 650 mg ORAL q [address] 40 mg tab(s) (PROTONIX) 40 mg ORAL DAILY (6 AM) fcmbfu-vnioqwyx-xfdplow 3 capsule cap(s) (CREON 24) 3 capsule ORAL TID w MEALS ondansetron (PF) 4 mg injection (ZOFRAN) 4 mg INTRAVENOUS q 6 H PRN potassium chloride ER 20-40 mEq tab(s) (K-DUR, KLOR-CON) 20- 40 mEq ORAL PRN potassium chloride iv piggyback 20 mEq/100 mL 20 mEq INTRAVENOUS PRN sodium phosphate 45 mmol in NaCl 0.9% 250 mL 45 mmol INTRAVENOUS PRN(NO DISPENSE) magnesium sulfate in water 2 g in sterile water 50 ml 2 g INTRAVENOUS PRN(NO DISPENSE) piperacillin-tazobactam 3.375 g in dextrose (iso-osmotic) 50 mL (ZOSYN) 3.375 g INTRAVENOUS q 6 H dextrose 5% in NaCl 0.45% with 20 mEq/L KCl iv infusion 100 mL/hr INTRAVENOUS CONTINUOUS heparin 5,000 Units injection 5,000 Units SUBCUTANEOUS q 12 H oxyCODONE 5-10 mg oral liquid (ROXICODONE) 5-10 mg ORAL q 4 H PRN HYDROmorphone 0.2 mg in NaCl 0.9% (DILAUDID) 0.2 mg INTRAVENOUS q 3 H PRN amLODIPine 10 mg tab(s) (NORVASC) 10 mg ORAL DAILY ALLERGIES No Known Allergies GI SPECIFIC REVIEW OF SYSTEMS: Negative for nausea, vomitting Negative for decreased appetite Negative for change in weight No alteration in bowel habits OTHER ROS: Negative for fever, night sweats, sleep problems, mood or depression. Objective PHYSICAL EXAM: BP 122/58 Pulse 76 Temp 36.5 ?C (97.7 ?F) (Oral) Resp 16 Ht 195.6 cm (6' 5.01) Wt 116.2 kg (256 lb 3.2 oz) SpO2 96% BMI 30.37 kg/m? GENERAL- AAO x 3, no distress HEENT: Moist mucus membranes, no carotid bruit LUNGS: Clear to auscultation bilaterally CARDIAC: S1, S2 heard, no murmur appreciated ABDOMEN: Soft, non-tender without guarding or rigidity, normal bowel sounds EXTREMITIES: No pedal edema DATA: Diagnostic Tests Reviewed for Today's Visit: Most recent labs and imaging results. 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 From GI standpoint, we will do EUS to try to sample the lesion seen in the pancreas. - I have cancelled the EUS order placed by primary team as it was not ordered with anesthesia and placed the appropriate order - Keep patient NPO after midnight Regarding the fluid collections, I asked primary team if we need to consider draining them based on EUS appearance. Was told to touch base with primary team about it in the morning SIGNATURE: Roni Solorzano MD PATIENT NAME: Evans Newell DATE: September 17, 2017 TIME: 1:55 PM PAGER/CONTACT #: [phone] PROGRESS Observed: 09/17/2017 Status: COMPLETED Source: [place] 11:47 AM [facility] REPOSITORY HNO ID: [id number] Author: Marques Kulkarni (Kera) Service: General Surgery Author Type: Fellow Type: Progress Notes Filed: 09/17/2017 11:52 AM Note Text: [facility] PROGRESS NOTE: ? Patient Name: Evans Newell ? PRIMARY SERVICE: General Surgery ? ASSESSMENT AND PLAN: 57 year old male s/p cholecystectomy with intra-abdominal fluid collection, history of pancreatitis - Fluid collection aspirated yesterday without any signs of infection, likely hematoma - Continue antibiotics - Patient tolerated liquids yesterday, will advance to soft diet today and see how he tolerates it - Protein supplements - Creon x1 (patient has been on this before and states it helps his symptoms) - Consult to GI for EUS of pancreas - Ambulate CC: Hungry INTERVAL HPI: No new issues. Underwent perc aspiration yesterday by radiology. Unable to aspirate fluid, felt to be hematoma. Tolerated liquids without any nausea or vomiting or abdominal pain. Leukocytosis improving. ? PHYSICAL EXAM: BP 105/50 Pulse 77 Temp 37.3 ?C (99.1 ?F) (Oral) Resp 17 Ht 195.6 cm (6' 5.01) Wt 116.2 kg (256 lb 3.2 oz) SpO2 97% BMI 30.37 kg/m? Gen: NAD Pulm: Non-labored breathing, chest rise symmetric Abd: S, NT, ND Ext: MARLOW spontaneously Neuro: Answering questions appropriately ? Miguel Angel Kulkarni MD [facility] surgery fellow Pager: [phone] COMP METABOLIC PANEL Collected: 09/17/2017 Status: F Source: [place] 5:22 AM [facility] REPOSITORY TYPE CODE TESTS RESULT OUT OF REFERENCE UNITS RANGE LAB TP 6.3-8.0 g/dL Low Protein, Total 5.7 LAB ALB 3.9-4.9 g/dL Low Albumin 2.5 LAB CA 8.5-10.2 mg/dL Low Calcium, Total 8.1 LAB TBIL 0.2-1.3 mg/dL Bilirubin, High Total 1.4 LAB ALKP 36-108 U/L Alkaline High Phosphatase 187 LAB AST 14-40 U/L AST 23 LAB GLU 74-99 mg/dL Glucose High 112 Result Comment: The [place] Diabetes Association (ADA) provides guidance for cutoff values for fasting glucose and random glucose. The ADA defines fasting as no caloric intake for at least 8 hours. Fas ting plasma glucose results between 100 to 125 mg/dL indicate increased risk for diabetes (prediabetes). Fasting plasma glucose results greater than or equal to 126 mg/dL meet the criteria for diagnosis of diabetes. In the absence of unequivocal hyperglycemia, results should be confirmed by repeat testing. In a patient with classic symptoms of hyperglycemia or hyperglycemic crisis, random plasma glucose results greater than or equal to 200 mg/dL meet the criteria for diagnosis of diabetes. Reference: Standards of Medical Care in Diabetes 2016, [place] [employer]. Diabetes Care. 2016.39(Suppl 1). LAB BUN 9-24 mg/dL BUN 14 LAB CRET 0.73-1.22 mg/dL Creatinine 0.84 LAB NA 136-144 mmol/L Sodium 137 LAB K 3.7-5.1 mmol/L Potassium 3.8 LAB CL 97-105 mmol/L Chloride 99 LAB CO2 22-30 mmol/L CO2 27 LAB AGAP 9-18 mmol/L Anion Gap 11 LAB ALT 10-54 U/L ALT 19 LAB GFRAA eGFR- Amer. >60 LAB GFRNAA . eGFR-All Other Races >60 Result Comment: eGFR (Estimated GFR) Units of measure: mL/min/1.73 meters squared eGFR is derived from the reexpressed MDRD Study equation using the following parameters: serum creatinine, age, gender and race. The creatinine assay has been calibrated to be traceable to IDMO. An eGFR <60 mL/min/1.73m2 for >3 months is consistent with chronic kidney disease. Refer to KDOQI guidelines for clinical interpretation. In patients with unstable renal function, e.g. those with acute kidney injury, the eGFR may not accurately reflect actual GFR. Performed By: #### CMP, CRP, MG1, PREALB, CBCDIF #### [facility] [address] [address] C-REACTIVE PROTEIN Collected: 09/17/2017 Status: F Source: [place] 5:22 AM [facility] REPOSITORY TYPE CODE TESTS RESULT OUT OF REFERENCE UNITS RANGE LAB CRP <0.9 mg/dL High C-Reactive 27.8 Protein Performed By: #### CMP, CRP, MG1, PREALB, CBCDIF #### [place] [address] MAGNESIUM Collected: 09/17/2017 Status: F Source: [place] 5:22 AM [facility] REPOSITORY TYPE CODE TESTS RESULT OUT OF REFERENCE UNITS RANGE LAB MG 1.7-2.3 mg/dL Magnesium 2.0 Performed By: #### CMP, CRP, MG1, PREALB, CBCDIF #### [facility] [address] [place] [address] PREALBUMIN Collected: 09/17/2017 Status: F Source: [place] 5:22 AM [facility] REPOSITORY TYPE CODE TESTS RESULT OUT OF REFERENCE UNITS RANGE LAB PREALB 17-36 mg/dL Low Prealbumin <3 Performed By: #### CMP, CRP, MG1, PREALB, CBCDIF #### [facility] [address] [place] [address] CBC AND DIFFERENTIAL Collected: 09/17/2017 Status: F Source: [place] 5:22 AM [facility] REPOSITORY TYPE CODE TESTS RESULT OUT OF REFERENCE UNITS RANGE LAB WBC 3.70-11.00 k/uL WBC High 17.67 LAB RBC 4.20-6.00 m/uL RBC Low 3.52 LAB HGB 13.0-17.0 g/dL Hemoglobin Low 9.7 LAB HCT 39.0-51.0 % Hematocrit Low 30.3 LAB MCV 80.0-100.0 fL MCV 86.1 LAB MCH 26.0-34.0 pG MCH 27.6 LAB MCHC 30.5-36.0 g/dL MCHC 32.0 LAB RDWCV 11.5-15.0 % RDW-CV High 15.1 LAB PLTCT 150-400 k/uL Platelet Count 390 LAB MPV 9.0-12.7 fL MPV 11.1 LAB ANEUT % Neut% 83.5 LAB AANEUT 1.45-7.50 k/uL Abs Neut High 14.75 LAB ALYMP % Lymph% 2.6 LAB AALYMP 1.00-4.00 k/uL Abs Lymph Low 0.46 LAB AMONO % Limestone% 13.0 LAB AAMONO <0.87 k/uL Abs [place]estone High 2.30 LAB AEOS % Eosin% 0.9 LAB AAEOS <0.46 k/uL Abs Eosin 0.16 LAB ABASO % Baso% 0.0 LAB AABASO <0.11 k/uL Abs Baso 0.00 LAB ANIIMI Anisocytosis Present LAB PLTEST Platelet Estimate Platelet estimate adequate LAB DTYP DTYPE Manual Diff Performed By: #### CMP, CRP, MG1, PREALB, CBCDIF #### [facility] [address] [id number] PROGRESS Observed: 09/16/2017 Status: COMPLETED Source: [place] 2:12 PM [facility] REPOSITORY HNO ID: [id number] Author: Mic Madrid (Mary), MARY Service: Radiology Author Type: Clinical Curtain Fitter Type: Progress Notes Filed: 09/16/2017 2:13 PM Note Text: Radiology Service Progress Note PATIENT NAME: Evans Newell DATE OF SERVICE: September 16, 2017 TIME: 2:12 PM PATIENT IDENTITY VERIFICATION COMPLETED USING TWO (2) METHODS: Patient confirmed name verbally and ID band matches.. PATIENT GENDER DATA: Male PATIENT RELEVANT IMPLANT DATA REVIEWED: Yes RADIOLOGY DEPARTMENT: CT; Exam(s) Completed: ct guided aspiration PERIPHERAL IV DATA: Not applicable SIGNED BY: MARY Garcia September 16, 2017 2:[address] DIAG ASP FLUID Observed: 09/16/2017 Status: F Source: [place] 2:10 PM [facility] REPOSITORY * * *Final Report* * * DATE OF EXAM: Sep 16 2017 2:10PM [facility] 2034 - CT DIAG ASP FLUID COLLECTION / PROCEDURE REASON: Pancreatitis * * * * Physician Interpretation * * * * PROCEDURE PERFORMED: CT GUIDED ASPIRATION PRE-PROCEDURE DIAGNOSIS: Abdominal collection POST-PROCEDURE DIAGNOSIS: Same INDICATION FOR PROCEDURE: The patient is a 57 years old Male who presents with history of pancreatitis and mid abdominal collection. STAFF RADIOLOGIST: Dr. Cifuentes AIRLINE LOUNGE RECEPTIONIST(S): Obey Frausto DO CONSENT: The risks, benefits, treatment options, potential complications and personnel involved were discussed with the patient. All questions were answered and consent was obtained. The patient indicated he was willing to proceed. The staff physician personally verified consent. TIME OUT: A time out was performed immediately prior to procedure start with the nursing, anesthesia and interventional team, correctly identifying the patient name, date of , procedure, anatomy (including marking of site and side), patient position, procedure consent form, relevant diagnostic and radiology test results, antibiotic administration, safety precautions, and procedure-specific equipment needs. RESULT: PROCEDURE: After performing the time out, left para midline epigastric region was prepped and draped in the usual sterile fashion. Under CT guidance, an 18 gauge trochar needle was advanced into the collection. 2 attempts were made to introduce the trocar into the region of interest and attempt aspiration without success. Subsequently each time to-3 cm of sterile saline lavage is were performed and aspirated. Given that no fluid returned post aspiration, the decision was made not to place drain. The procedure was performed by the: attending radiologist, with an litigation assistant. The attending radiologist performed the following procedural activities: Lesion localization, saline lavage. ANESTHESIA/SEDATION: Conscious sedation was achieved using 1 mg of versed and 50 mcg of fentanyl intravenously. Local anesthesia was achieved utilizing 15 cc 2% percent lidocaine. Vital signs were monitored by the nurse. START TIME/TIMEOUT TIME: 1344 END TIME: 1400 INTRA-SERVICE (SEDATION) TIME: 23 minutes PATIENT MONITORING: The staff physician personally supervised and directed an independent trained observer who assisted in monitoring the patient?s level of consciousness and physiological status throughout the procedure. COMPLICATIONS: None SIGN-OUT DISCUSSION: Completed ESTIMATED BLOOD LOSS: Minimal CONTRAST: None CT ABDOMEN AND PELVIS RADIATION DOSE: Dose-length product (DLP) = 478 mGy*cm. SPECIMENS:Two 4 cc sterile saline lavages were performed and sent for microbiology DRAIN(S): None IMPRESSION: CT-GUIDED STERILE SALINE LAVAGE OF UPPER LEFT ABDOMINAL COLLECTION. GIVEN THE HIGH ATTENUATION OF THIS REGION AND FAILURE TO ASPIRATE FLUID, IT LIKELY REPRESENTS HEMATOMA. COMMUNICATION: Communicated with: Dr. Mikael Owens on 09/16/2017 at 1448 Airline Lounge Receptionist: PSCB Transcribe Date/Time: Sep 16 2017 2:19P Dictated by : Adrianne FRAUSTO DO This examination was interpreted and the report reviewed and electronically signed by: MARITZA CIFUENTES MD on Sep 16 2017 2:49PM EST [id number] BRIEF OP NOT Observed: 09/16/2017 Status: COMPLETED Source: [place] 2:05 PM [facility] REPOSITORY HNO ID: [id number] Author: Adrianne Frausto (Res) Service: Radiology Author Type: Resident Type: Brief Op Note Filed: 09/16/2017 2:07 PM Note Text: BRIEF OPERATIVE / PROCEDURE NOTE LOG ID: [id number] Surgery/Procedure Date: 09/16/2017 Incision/Procedure Start Time: 1:44 PM Incision Close/Procedure End Time: Surgeon(s)/Proceduralist(s) and Railway Engineer(s): Surgeon(s) and Role: * Maritza Cifuentes N - Primary Adrianne Frausto DO - litigation assistant Procedure(s): aspiration of abdominal collection Anesthesia: Procedural Sedation Findings: high density material which could not be aspirated, suspect hematoma Estimated Blood Loss: minimal minimal Specimens: Two 4cc saline lavages with needle in collectoin Complications: None Pre-Op/Pre-Procedure Diagnosis: hx of pancreatitis, abdominal collection Post-Op/Post-Procedure Diagnosis: same SIGNATURE: Adrianne Frausto DO PATIENT NAME: Evans Newell DATE: September 16, 2017 TIME: 2:05 PM PAGER/CONTACT #: [phone] WOUND Observed: 09/16/2017 Status: F Source: [place] CULTURE/STAIN 2:00 PM [facility] REPOSITORY Sp. Request/Comment: - Specimen received in sterile container. Smear Result - No organisms seen Moderate Polymorphonuclear leukocytes Culture Result - No growth 5 days Performed By: #### WCUL #### [facility] [address] [place] [address] Observed: 09/16/2017 Status: F Source: [place] ANAEROBE CULTURE 2:00 PM [facility] REPOSITORY Culture Result - Negative for anaerobes. Performed By: #### ANACUL #### [facility] [address] [address] Observed: 09/16/2017 Status: F Source: [place] FUNGAL CULT / SMEAR 2:00 PM [facility] REPOSITORY Sp. Request/Comment: - Specimen received in sterile container. Smear Result - No fungus seen. Culture Result - No Fungus isolated after 31 days Performed By: #### FCULSM #### [place] [address] Observed: 09/16/2017 Status: F Source: [place] AF[employer] CULT AND STAIN 2:00 PM [facility] REPOSITORY Sp. Request/Comment: - Specimen received in sterile container. Smear Result - No acid fast bacilli seen by fluorochrome stain Culture Result - No Acid Fast Bacilli isolated after 45 days Performed By: #### AFC #### [facility] [address] [address] HISTORY PHYSICAL Observed: 09/16/2017 Status: COMPLETED Source: [place] 1:14 PM [facility] REPOSITORY HNO ID: [id number] Author: Adrianne Frausto (Res) Service: Radiology Author Type: Resident Type: HANDP Filed: 09/16/2017 1:15 PM Note Text: UPDATED PROCEDURAL SEDATION HISTORY AND PHYSICAL EXAMINATION SERVICE DATE: 09/16/2017 SERVICE TIME: 1:14 PM PHYSICAL EXAM MUST BE COMPLETED ON ADMISSION The History and Physical (completed in the past 30 days) has been reviewed and the patient has been examined. The contents accurately reflect the patient's condition with the following additions or revisions since the HANDP was completed. ASA Class: ASA Class:: Patient with mild systemic disease Examination indicates no changes. AIRWAY: Airway Visualization of Uvula: Yes Mouth opening greater than 2 fingerbreadths: Yes Neck Full Range of Motion: Yes LUNGS: Lungs clear to auscultation, Good diaphragmatic excursion CARDIAC: Normal S1 and S2; no rubs, murmurs, or gallops Provisional Diagnosis/Treatment Plan: aspiration of abdominal fluid SEDATION GOAL: Moderate This HANDP can be found in the Electronic Medical Record dated September 16, 2017 . SIGNATURE: Adrianne Frausto DO PATIENT NAME: Evans Newell DATE: September 16, 2017 TIME: 1:14 PM PAGER: [phone] PT ED Observed: 09/16/2017 Status: COMPLETED Source: [place] 1:04 PM [facility] REPOSITORY HNO ID: [id number] Author: Mitzi Gardner (Rn), RN Service: Radiology Author Type: Registered Nurse Type: Patient Education Filed: 09/16/2017 1:05 PM Note Text: .AMBULATORY PATIENT EDUCATION NOTE TOPIC: Procedure image guided drain READINESS TO LEARN COGNITIVE ABILITY: Alert and oriented MOTIVATION TO LEARN: Interested FAMILY SUPPORT: Unable to assess - Family not present INSTRUCTION PROVIDED TO: Patient PATIENT LEARNS BEST BY: Verbal Instruction FACTORS AFFECTING LEARNING: Unable to assess PHYSICAL LIMITATIONS AFFECTING LEARNING: None LEARNING RESPONSE DIAGNOSIS: Procedure image guided drain METHOD OF INSTRUCTION: Verbal instruction PATIENT / FAMILY RESPONSE: Verbalizes understanding of: PAIN MANAGEMENT-Effective strategies to manage pain in addition to pain medication PRE-PROCEDURE INSTRUCTIONS-Correct action to take to follow pre-procedure instructions FOLLOW-UP PLAN: G101 for post procedure monitoring SUPPLEMENTAL MATERIAL: None REFERRAL (RECOMMENDATION): None Electronically Signed By: Mitzi Gardner RN In Department: [facility] G101 PROTIME Collected: 09/16/2017 Status: F Source: [place] 6:14 AM [facility] REPOSITORY TYPE CODE TESTS RESULT OUT OF RANGE REFERENCE UNITS LAB PSEC 9.7-13.0 sec PT Sec 12.7 LAB INR 0.9-1.3 PT INR 1.2 Result Comment: Vitamin K Antagonist (VKA) Therapeutic Range: INR 2 to 3 (Target INR of 2.5) Note: For patients treated with VKA drugs, such as warfarin, the [place] [employer] 2012 Guideline recommends a therapeutic INR range of 2 to 3 (target INR of 2.5). This recommendation includes high-risk patients with antiphospholipid syndrome with previous arterial or venous thromboembolism, current-generation mechanical or bioprosthetic aortic heart valve replacement. Note: Patients with mechanical aortic valve replacement and additional risk factors for thromboembolic events (atrial fibrillation, previous thromboembolism, LV dysfunction, hypercoagulable conditions) or an older generation mechanical AVR (i.e., ball in-Cage) or any mechanical MVR should have a INR therapeutic range of 2.5 to 3.5 (target INR of 3). Altagracia GH, et al. Chest 2012, 141:7S-47S Julita RA, et al. [facility] 2017, 70: 252-289 Performed By: #### PT, PTT, CBIL, CMP, LIPA, MG1, PHOS, TRANSF, PREALB, CBCDIF #### [facility] [address] [address] APTT Collected: 09/16/2017 Status: F Source: [place] 6:14 AM [facility] REPOSITORY TYPE CODE TESTS RESULT OUT OF RANGE REFERENCE UNITS LAB APTT 23.0-32.4 sec APTT 31.5 Result Comment: Unfractionated Heparin Therapeutic Ranges: Standard Heparin Nomogram: 53 to 78 seconds (anti-Xa level of 0.3 to 0.7 U/ml) Low Dose/ACS Nomogram: 49 to 67 seconds (anti-Xa level of 0.2 to 0.5 U/ml) Stroke Treatment Nomogram: 49 to 67 seconds (anti-Xa level of 0.2 to 0.5 U/ml) Note: The APTT therapeutic range has been determined for the current lot of laboratory APTT reagent in use throughout the [facility]. Performed By: #### PT, PTT, CBIL, CMP, LIPA, MG1, PHOS, TRANSF, PREALB, CBCDIF #### [place] [id number] [place] [id number] BILIRUBIN,CONJUGATED Collected: Status: F Source: [place] 09/16/2017 6:14 AM [facility] REPOSITORY TYPE CODE TESTS RESULT OUT OF RANGE REFERENCE UNITS LAB CBIL <0.2 mg/dL High 0.7 Bilirubin,Co njugated Performed By: #### PT, PTT, CBIL, CMP, LIPA, MG1, PHOS, TRANSF, PREALB, CBCDIF #### [facility] [address] [place], [place] [address] COMP METABOLIC PANEL Collected: 09/16/2017 Status: F Source: [place] 6:14 AM [facility] REPOSIT[facility] TYPE CODE TESTS RESULT OUT OF REFERENCE UNITS RANGE LAB TP 6.3-8.0 g/dL Low Protein, Total 6.1 LAB ALB 3.9-4.9 g/dL Low Albumin 2.8 LAB CA 8.5-10.2 mg/dL Low Calcium, Total 8.3 LAB TBIL 0.2-1.3 mg/dL Bilirubin, High Total 1.5 LAB ALKP 36-108 U/L Alkaline High Phosphatase 171 LAB AST 14-40 U/L AST 16 LAB GLU 74-99 mg/dL Glucose High 120 Result Comment: The [place] Diabetes Association (ADA) provides guidance for cutoff values for fasting glucose and random glucose. The ADA defines fasting as no caloric intake for at least 8 hours. Fas ting plasma glucose results between 100 to 125 mg/dL indicate increased risk for diabetes (prediabetes). Fasting plasma glucose results greater than or equal to 126 mg/dL meet the criteria for diagnosis of diabetes. In the absence of unequivocal hyperglycemia, results should be confirmed by repeat testing. In a patient with classic symptoms of hyperglycemia or hyperglycemic crisis, random plasma glucose results greater than or equal to 200 mg/dL meet the criteria for diagnosis of diabetes. Reference: Standards of Medical Care in Diabetes 2016, [place] Diabetes Association. Diabetes Care. 2016.39(Suppl 1). LAB BUN 9-24 mg/dL BUN 21 LAB CRET 0.73-1.22 mg/dL Creatinine 0.95 LAB NA 136-144 mmol/L Sodium 136 LAB K 3.7-5.1 mmol/L Potassium 3.8 LAB CL 97-105 mmol/L Chloride 97 LAB CO2 22-30 mmol/L CO2 26 LAB AGAP 9-18 mmol/L Anion Gap 13 LAB ALT 10-54 U/L ALT 17 LAB GFRAA eGFR- Amer. >60 LAB GFRNAA . eGFR-All Other Races >60 Result Comment: eGFR (Estimated GFR) Units of measure: mL/min/1.73 meters squared eGFR is derived from the reexpressed MDRD Study equation using the following parameters: serum creatinine, age, gender and race. The creatinine assay has been calibrated to be traceable to IDMS. An eGFR <60 mL/min/1.73m2 for >3 months is consistent with chronic kidney disease. Refer to KDOQI guidelines for clinical interpretation. In patients with unstable renal function, e.g. those with acute kidney injury, the eGFR may not accurately reflect actual GFR. Performed By: #### PT, PTT, CBIL, CMP, LIPA, MG1, PHOS, TRANSF, PREALB, CBCDIF #### [place] [address] LIPASE Collected: 09/16/2017 Status: F Source: [place] 6:14 AM [facility] REPOSITORY TYPE CODE TESTS RESULT OUT OF REFERENCE UNITS RANGE LAB LIPA 16-61 U/L Low Lipase 13 Performed By: #### PT, PTT, CBIL, CMP, LIPA, MG1, PHOS, TRANSF, PREALB, CBCDIF #### [place] [address] MAGNESIUM Collected: 09/16/2017 Status: F Source: [place] 6:14 AM [facility] REPOSIT[facility] TYPE CODE TESTS RESULT OUT OF REFERENCE UNITS RANGE LAB MG 1.7-2.3 mg/dL Magnesium 2.0 Performed By: #### PT, PTT, CBIL, CMP, LIPA, MG1, PHOS, TRANSF, PREALB, CBCDIF #### [place] [address] PHOSPHORUS Collected: 09/16/2017 Status: F Source: [place] 6:14 AM [facility] REPOSIT[facility] TYPE CODE TESTS RESULT OUT OF REFERENCE UNITS RANGE LAB PHOS 2.7-4.8 mg/dL Low Phosphorus 2.4 Performed By: #### PT, PTT, CBIL, CMP, LIPA, MG1, PHOS, TRANSF, PREALB, CBCDIF #### [place] [address] TRANSFERRIN Collected: 09/16/2017 Status: F Source: [place] 6:14 AM [facility] REPOSIT[facility] TYPE CODE TESTS RESULT OUT OF REFERENCE UNITS RANGE LAB TRANSF 200-360 mg/dL Transferrin Low 138 Performed By: #### PT, PTT, CBIL, CMP, LIPA, MG1, PHOS, TRANSF, PREALB, CBCDIF #### [place] [address] PREALBUMIN Collected: 09/16/2017 Status: F Source: [place] 6:14 AM [facility] RE[facility]IT[facility] TYPE CODE TESTS RESULT OUT OF REFERENCE UNITS RANGE LAB PREALB 17-36 mg/dL Low Prealbumin 4 Performed By: #### PT, PTT, CBIL, CMP, LIPA, MG1, PHOS, TRANSF, PREALB, CBCDIF #### [facility] [address] [place] [address] CBC AND DIFFERENTIAL Collected: 09/16/2017 Status: F Source: [place] 6:14 AM [facility] REPOSIT[facility] TYPE CODE TESTS RESULT OUT OF REFERENCE UNITS RANGE LAB WBC 3.70-11.00 k/uL WBC High 20.59 LAB RBC 4.20-6.00 m/uL RBC Low 3.70 LAB HGB 13.0-17.0 g/dL Low Hemoglobin 10.2 LAB HCT 39.0-51.0 % Low Hematocrit 31.9 LAB MCV 80.0-100.0 fL MCV 86.2 LAB MCH 26.0-34.0 pG MCH 27.6 LAB MCHC 30.5-36.0 g/dL MCHC 32.0 LAB RDWCV 11.5-15.0 % RDW-CV High 15.1 LAB PLTCT 150-400 k/uL Platelet High Count 419 LAB MPV 9.0-12.7 fL MPV 11.2 LAB ANEUT % Neut% 85.3 LAB AANEUT 1.45-7.50 k/uL Abs Neut High 17.56 LAB ALYMP % Lymph% 1.7 LAB AALYMP 1.00-4.00 k/uL Abs Low Lymph 0.35 LAB AMONO % Limestone% 13.0 LAB AAMONO <0.87 k/uL Abs [place]estone High 2.68 LAB AEOS % Eosin% 0.0 LAB AAEOS <0.46 k/uL Abs Eosin 0.00 LAB ABASO % Baso% 0.0 LAB AABASO <0.11 k/uL Abs Baso 0.00 LAB RBCMOR Red Cell Morph SEE COMMENT Result Comment: Unremarkable LAB PLTEST Platelet Platelet Estimate estimate increased LAB DTYP DTYPE Manual Diff Performed By: #### PT, PTT, CBIL, CMP, LIPA, MG1, PHOS, TRANSF, PREALB, CBCDIF #### [facility] [address] [place], [place] [address] TYPE AND SCREEN Collected: 09/16/2017 Status: F Source: [place] 6:14 AM [facility] REPOSITORY TYPE CODE TESTS RESULT OUT OF REFERENCE UNITS RANGE LAB %ABR A ABO/RH(D) POSITIVE LAB % Antibody NEG Screen Performed By: #### TSCR #### [facility] [employer] [address] [place], [place] [address] HISTORY PHYSICAL Observed: 09/16/2017 Status: COMPLETED Source: [place] 12:43 AM [facility] REPOSITORY HNO ID: [id number] Author: Marques Kulkarni (Kera) Service: General Surgery Author Type: Fellow Type: HANDP Filed: 09/16/2017 11:26 AM Note Text: GENERAL SURGERY HANDP SERVICE DATE: 09/16/2017 SERVICE TIME: 12:43 AM HPI Evans Newell is a 57 year old male with hx of HTN, pancreatitis, pancreatic pseudocysts s/p stents (placed May, removed July), gallstone pancreatitis s/p laparoscopic cholecystectomy with cholangiogram and liver biopsy on 08/24, presenting with 2 days of abdominal pain, N/V, transferred from OSH ED. At this point pt is mostly dry heaving and unable to tolerate even liquids by mouth. Describes pain as localized to epigastric region, just left of midline, radiating to left back/shoulder, similar to his episodes several months ago. Pt does not believe it is associated with food. Has experienced progressive nausea since shortly after most recent surgery. Denies recent fevers but endorses general malaise and full body aches. WBC at OSH was 26.1, started on zosyn prior to transfer. CT A/P demonstrated new loculated fluid collections along left liver margin within lesser sac, masslike region at body/tail of pancreas, and right liver lobe nodule increased in size. Differentials included pseudocyst and/or abscess, hronic pancreatitis, pancreatic necrosis, complex pseudocyst or pancreatic mass. Lipase 82 at OSH. Last BM yesterday was well formed, still passing gas. Denies recent fevers, chills, SOB, chest pain, N/V or diarrhea, weakness, dizziness, changes in urination or bowel habits, or new swelling. PAST MEDICAL HISTORY: PAST MEDICAL HISTORY Diagnosis Date - History of gallstones - HTN (hypertension) - Pancreatic pseudocyst 05/16/2017 - Pancreatitis - Psychiatric disorder anxiety PAST SURGICAL HISTORY: PAST SURGICAL HISTORY Procedure Laterality Date - ANESTHESIA TOTAL HIP ARTHROPLASTY Left 1996 - CHOLECYSTECTOMY 08/24/2017 - EGD 05/2017, 07/2017 - KNEE SCOPE,DIAGNOSTIC Right 02/02/16 Arthroscopy, knee - ORTHOPEDICS SURGERY HX REVIEW OF SYSTEMS Negative except as stated in HPI FAMILY HISTORY: FAMILY HISTORY Problem Relation Age of Onset - Diabetes Father - cardiac [OTHER] Father 82 - liver transplant [OTHER] Mother Hep C after transfusion SOCIAL HISTORY: Social History Substance Use Topics - Smoking status: Never Smoker - Smokeless tobacco: Never Used - Alcohol use 1.5 oz/week 1 Glasses of Wine (5oz) per week MEDICATIONS: Prior to Admission Medications: sucralfate (CARAFATE) 1 gram tablet Take 1 tablet by mouth four times daily for 15 days. Before meals and bedtime esomeprazole (NEXIUM) 40 mg capsule Take 1 capsule by mouth DAILY (6 AM). promethazine (PHENERGAN) 25 mg tablet Take 1 tablet by mouth every 4 hours as needed (for nausea). acetaminophen (TYLENOL) 325 mg tablet Take 2 tablets by mouth every 6 hours as needed. ondansetron orally disintegrating (ZOFRAN ODT) 4 mg tab(s) ER Go-Pack Take 1 tablet by mouth every 8 hours as needed. amLODIPine (NORVASC) 10 mg tablet Take 1 tablet by mouth once daily. clonazePAM (KLONOPIN) 1 mg tablet Take 1 tablet by mouth twice daily as needed for Anxiety for up to 30 days. vggrty-bcsqufde-aenbvtq (CREON) 24,000-76,000 -120,000 unit cpDR Take 3 capsules by mouth three times daily with meals. No current hospital medications on file. ALLERGIES: ALLERGIES No Known Allergies PHYSICAL EXAM: Constitutional: Patient Vitals for the past 24 hrs: BP Temp Temp src Pulse Resp SpO2 Height Weight 09/16/17 0031 117/59 37.4 ?C (99.4 ?F) Oral 87 18 94 % 195.6 cm (6' 5.01) 116.2 kg (256 lb 3.2 oz) General Appearance normal body habitus, well-developed , well-nourished Lungs: clear to auscultation bilaterally Heart: RRR, no murmurs Abdomen: soft, no distention, hernias or masses, focally TTP in epigastric region. +Buitrago's sign. CVA tenderness on left Extremities: no edema CT A/P: There are loculated complex fluid collections located along the margin of the left ?lobe of the liver, between the stomach and pancreas and within the lesser sac. ? These collections are new since the prior CT. ?The differential for these collections would include pseudocyst and/or abscess. ? There is a 5.5 cm x 3.3 cm low-attenuation masslike area within the body/tail of the pancreas. ?This area is larger than on the prior CT. ?Differential for this would include an area of chronic pancreatitis, pancreatic necrosis, complex pseudocyst or pancreatic mass. ?There is mild stranding of the fat adjacent to the ?body/tail of the pancreas and pancreatitis cannot be excluded. ?Correlation with lipase levels is recommended. ? There is a 1.9 cm nodule posterior to the right lobe of the liver. ?This may represent an additional small fluid collection. ?This nodule has increased in size ?since the prior CT. ?Attention on follow-up studies is recommended. ? Bilateral renal cysts. Assessment: 57 yo M with hx of HTN, pancreatitis, pancreatic pseudocysts s/p stenting (placed May, removed July), gallstone pancreatitis s/p laparoscopic cholecystectomy with cholangiogram and liver biopsy on 08/24 presenting with pain associated with new complex loculated collections visualized within the lesser sac and along the left liver margin on CT in addition to enlarged masslike area at the tail/body of pancreas. Given pt's hx of pseudocysts and recent surgery, these collections may represent infected pseudocysts, particularly given leukocytosis, but given the various locations, this may not be the only cause of the collections. Biopsies taken near right costal margin and may have contributed to collections of anterior liver. Tbili also elevated, while lipase is WNL. Overall pt is HDS, afebrile. Plan: - No indications for acute surgical intervention. Further discussion with primary team in the AM pending further lab workup - Labs including LFTs with conjugated bili, nutrition labs - NPO, IVF - Continue zosyn Patient seen and discussed with senior resident controller mechanic. SIGNATURE: Jay Ayers MD PATIENT NAME: Evans Newell DATE: September 16, 2017 TIME: 12:43 AM Pager: [phone] SENIOR ADDENDUM: Patient is a 57yo M with a h/o HTN, gallstone pancreatitis c/b pseudocysts s/p cystgastrostomy and subsequent removal, and recent lap manasa who presented to the OSH ED with worsening N, dry heaves, intolerance to PO, and abdominal pain. Patient was initially diagnosed with gallstone pancreatitis with pseudocysts back in May 2017; prior to that, he was unaware of any clear episodes of pancreatitis. He was referred to GI/Dr. Gracia for pseudocyst drainage, had a cystgastrostomy placed and subsequently removed (July 2017). Most recently, he underwent lap manasa with IOC and liver bx x [address] Avina on 09/02/2017. The liver was biopsied twice in the case and the pathology showed chronic cholecystitis and mild steatosis. He states he did well for 2-3 days after that surgery. Then he started developing nausea and intolerance of PO intake since then, which has been steadily worsening. Has dry heaving and occasional emesis with most foods. 2 days ago, he started having abdominal pain in the LUQ/epigastric area with radiation to his left shoulder, also with malaise. Denies fevers/chills. He presented to the ED and underwent CT imaging showing the below results. Lipase at OSH was 82. Last BM was yesterday, nonbloody, has been having regular BMs throughout. ? 06/07/2017: EGD EUS by Dr. Gracia: cystgastrostomy placed with a [id number] [id number] stent, 1700cc green/brown fluid was suctioned. 07/19/2017: EGD EUS by Dr. Gracia: stent removal ? CT abd/pel 09/15/2017: There are loculated complex fluid collections located along the margin of the left ?lobe of the liver, between the stomach and pancreas and within the lesser sac. ?? These collections are new since the prior CT. ?The differential for these collections would include pseudocyst and/or abscess. ?? There is a 5.5 cm x 3.3 cm low-attenuation masslike area within the body/tail of the pancreas. ?This area is larger than on the prior CT. ?Differential for this would include an area of chronic pancreatitis, pancreatic necrosis, complex pseudocyst or pancreatic mass. ?There is mild stranding of the fat adjacent to the ?body/tail of the pancreas and pancreatitis cannot be excluded. ?Correlation with lipase levels is recommended. ?? There is a 1.9 cm nodule posterior to the right lobe of the liver. ?This may represent an additional small fluid collection. ?This nodule has increased in size ?since the prior CT. ?Attention on follow-up studies is recommended. ?? Bilateral renal cysts. ? PE: General: AO, NAD CV: RRR Pulm: no resp distress on RA Abd: soft, ND, lap sites are healed, focally TTP in epigastrium, rest of abdomen is soft and NTTP Ext: [place] A/P: Patient is a 57yo M with a h/o HTN, gallstone pancreatitis c/b pseudocysts s/p cystgastrostomy and subsequent removal, and recent lap manasa who presented to the OSH ED with worsening N, dry heaves, intolerance to PO, and abdominal pain. CT scan is concerning for perihepatic fluid collections and an area of inflammation in the body/tail of the pancreas, where the patient had a pseudocyst vs fluid collection on prior scans, concerning for infected pseudocyst vs pancreatic necrosis. WBC elevated at 25, although patient HDS and currently afebrile. --admit to [facility] --NPO --IVF --strict IANDOs --zosyn --CBC, CMP (trend bilirubin), direct bilirubin, lipase --nutrition labs, will need nutrition consult given 2wks h/o poor PO intake --may need MRCP for further imaging, will review images with cynthia Blackmon MD 09/16/2017 Addendum: I have reviewed the history and physical examination obtained and documented by the resident and I personally participated in the batista components. I have discussed the case and management of the patient's care. The following comments revise or confirm relevant batista components of the note. CC: Nausea HPI: Patient had lap manasa approximately 3 weeks ago and has had nausea and some mild abdominal pain since then. He underwent a CT that showed a fluid collection and was transferred to [facility] for further evaluation and management. The patient has a history of pancreatitis thought to be gallstone etiology. Has had axios stent placed. Plan: - Will aspirate fluid collection today - Concern for pancreatic mass in tail causing pancreatitis - Will need EUS to further evaluate pancreatic mass later this week - Antibiotics - Can try diet after procedure Dispo: Continue RNF SIGNATURE: Miguel Angel Kulkarni MD [facility] surgery fellow Pager: [phone] ED NOTE Observed: 09/15/2017 Status: COMPLETED Source: [place] 10:58 PM [facility] REPOSITORY HNO ID: [id number] Author: Romelia (Rn) NICKI Menchaca Service: Emergency Medicine Author Type: Registered Nurse Type: ED Notes Filed: 09/27/2017 11:23 PM Note Text: Chart accessed for audit purposes [id number] 09/27/17, Romelia Menchaca RN. ED NOTE Observed: 09/15/2017 Status: COMPLETED Source: [place] 10:57 PM [facility] REPOSITORY HNO ID: [id number] Author: Joseline HooverRn), RN Service: Emergency Medicine Author Type: Registered Nurse Type: ED Notes Filed: 09/15/2017 10:57 PM Note Text: [facility] here to transport to [facility] ED NOTE Observed: 09/15/2017 Status: COMPLETED Source: [place] 10:05 PM [facility] REPOSITORY HNO ID: [id number] Author: Joseline HooverRn), RN Service: Emergency Medicine Author Type: Registered Nurse Type: ED Notes Filed: 09/15/2017 10:06 PM Note Text: Pain improved, rates 09/21 ED NOTE Observed: 09/15/2017 Status: COMPLETED Source: [place] 9:59 PM [facility] REPOSITORY HNO ID: [id number] Author: Joseline Hoover (Rn), RN Service: Emergency Medicine Author Type: Registered Nurse Type: ED Notes Filed: 09/15/2017 10:02 PM Note Text: Patient informed: the name of medication, why we are giving it, possible side effects, what they may expect to feel, and was offered a chance to ask questions, prior to the administration of dilaudid. ED NOTE Observed: 09/15/2017 Status: COMPLETED Source: [place] 9:55 PM [facility] REPOSITORY HNO ID: [id number] Author: Joseline HooverRn), RN Service: Emergency Medicine Author Type: Registered Nurse Type: ED Notes Filed: 09/15/2017 10:01 PM Note Text: States pain beginning to get worse again, rates 8/10 ED NOTE Observed: 09/15/2017 Status: COMPLETED Source: [place] 9:48 PM [facility] REPOSITORY HNO ID: [id number] Author: Dina SoniRn), RN Service: Emergency Medicine Author Type: Registered Nurse Type: ED Notes Filed: 09/15/2017 9:51 PM Note Text: [facility] notified - spoke with bianca - ETA 45-60min ED NOTE Observed: 09/15/2017 Status: COMPLETED Source: [place] 9:17 PM [facility] REPOSITORY HNO ID: [id number] Author: Dina SoniRn), RN Service: Emergency Medicine Author Type: Registered Nurse Type: ED Notes Filed: 09/15/2017 9:17 PM Note Text: MD on phone with Dr. Garcia from [facility] who accepts patient for transfer ED NOTE Observed: 09/15/2017 Status: COMPLETED Source: [place] 9:09 PM [facility] REPOSITORY HNO ID: [id number] Author: Joseline HooverRn), RN Service: Emergency Medicine Author Type: Registered Nurse Type: ED Notes Filed: 09/15/2017 9:10 PM Note Text: Dr Jeannie vasquez to discuss test results and transfer to [facility] with patient and ED NOTE Observed: 09/15/2017 Status: COMPLETED Source: [place] 9:05 PM [facility] REPOSITORY HNO ID: [id number] Author: Joseline HooverRn), RN Service: Emergency Medicine Author Type: Registered Nurse Type: ED Notes Filed: 09/15/2017 9:07 PM Note Text: States pain slightly improved, rates pain 7/10, cart side, patient denies needs at this time ED NOTE Observed: 09/15/2017 Status: COMPLETED Source: [place] 9:03 PM [facility] REPOSITORY HNO ID: [id number] Author: Dina SoniRn), RN Service: Emergency Medicine Author Type: Registered Nurse Type: ED Notes Filed: 09/15/2017 9:17 PM Note Text: MD on phone with Dr. Marrero Who declines patient and suggests he be tranferred to [facility] ED NOTE Observed: 09/15/2017 Status: COMPLETED Source: [place] 8:58 PM [facility] REPOSITORY HNO ID: [id number] Author: Joseline Hoover (Rn), RN Service: Emergency Medicine Author Type: Registered Nurse Type: ED Notes Filed: 09/15/2017 9:10 PM Note Text: Patient informed: the name of medication, why we are giving it, possible side effects, what they may expect to feel, and was offered a chance to ask questions, prior to the administration of zosyn. ED NOTE Observed: 09/15/2017 Status: COMPLETED Source: [place] 8:54 PM [facility] REPOSITORY HNO ID: [id number] Author: Dina Soni (Rn), RN Service: Emergency Medicine Author Type: Registered Nurse Type: ED Notes Filed: 09/15/2017 8:54 PM Note Text: Call placed to [facility] transfer line - spoke with Kranthi- for transfer to [facility] ED NOTE Observed: 09/15/2017 Status: COMPLETED Source: [place] 8:46 PM [facility] REPOSITORY HNO ID: [id number] Author: Enrique Villalobos (Rn), RN Service: Emergency Medicine Author Type: Registered Nurse Type: ED Notes Filed: 09/15/2017 8:47 PM Note Text: Ambulates to rr balanced gait, 2nd bc jf from existing iv. re medicated as ordered. Comfort measures offered. URINALYSIS ROUTINE Collected: 09/15/2017 Status: F Source: [facility] 8:45 PM HEALTH SYSTEM REPOSITORY TYPE CODE TESTS RESULT OUT OF RANGE REFERENCE UNITS LAB LCOLR(LOIN C) Urine Color DARK YELLOW LAB LAPPU(LOIN C) Urine Appearance CLEAR LAB LGLUR(LOIN Negative C) Glucose Urine NEGATIVE LAB LKETO(LOIN Negative C) Ketone Urine NEGATIVE LAB LHGBU(LOIN Negative C) Hemoglobin,Urin NEGATIVE e LAB LPRTU(LOIN Negative C) Abnormal Protein Urine TRACE LAB LNITR(LOIN Negative C) Nitrites Urine NEGATIVE LAB LBILU(LOIN Negative C) Bilirubin Urine see below Result Comment: Detected (Unable to confirm). LAB LSPG(LOINC) 1.005-1.030 Specific Addison, Ur <=1.005 LAB LPHUR(LOINC) 5.0-8.0 pH,Urine 5.5 LAB LUROB(LOINC) 0.0-1.0 EU/dL High Urobilinogen,Ur 4.0 LAB LLEUK(LOINC) Negative Leukocytes NEGATIVE Esterase LAB LWBCU(LOINC) 0-5 /hpf WBC, Urine 2-5 LAB LRBCU(LOINC) 0-3 /hpf RBC,Urine 0-3 LAB LEPIT(LOINC) 0-5 /hpf Ep Cells Urine 0-2 Performed By: #### LURIN #### [facility] [address] [address] Observed: 09/15/2017 Status: F Source: [facility] BLOOD 8:45 PM HEALTH SYSTEM REPOSITORY Test performed at [facility] No growth Performed By: #### C_BLO #### [place] [address] Observed: 09/15/2017 Status: F Source: [facility] BLOOD 8:45 PM HEALTH SYSTEM REPOSITORY Test performed at [facility] No growth Performed By: #### C_BLO #### [place] [address] ED NOTE Observed: 09/15/2017 Status: COMPLETED Source: [place] 8:40 PM [facility] REPOSITORY HNO ID: [id number] Author: Enrique Villalobos (Rn), RN Service: Emergency Medicine Author Type: Registered Nurse Type: ED Notes Filed: 09/15/2017 8:40 PM Note Text: Patient informed: the name of medication, why we are giving it, possible side effects, what they may expect to feel, and was offered a chance to ask questions, prior to the administration of dilaudid. ED NOTE Observed: 09/15/2017 Status: COMPLETED Source: [place] 8:31 PM [facility] [place] REPOSITORY HNO ID: [id number] Author: Enrique VillalobosRn), RN Service: Emergency Medicine Author Type: Registered Nurse Type: ED Notes Filed: 09/15/2017 8:32 PM Note Text: Aware need ua, unable to go att. ED NOTE Observed: 09/15/2017 Status: COMPLETED Source: [place] 8:28 PM [facility] [place] REPOSITORY HNO ID: [id number] Author: Joseline Hoover (Rn), RN Service: Emergency Medicine Author Type: Registered Nurse Type: ED Notes Filed: 09/15/2017 8:31 PM Note Text: Patient returned to the Emergency Department. CHEST 1 VIEW Observed: 09/15/2017 Status: F Source: [facility] 8:25 PM HEALTH SYSTEM REPOSITORY Performed at [facility] APPROVED BY: Kunal Castillo MD EXAM TITLE: CHEST 1 VIEW DATE: 09/15/2017 20:12 INDICATION: Upper abdominal pain. Difficulty taking deep breaths. COMPARISON: 03/05/2017. 2 portable frontal views of the chest show mild cardiomegaly. Central pulmonary vasculature is unremarkable. Lungs are grossly clear. The only note is probable granuloma left midlung. Old left clavicle fracture. IMPRESSION: No acute findings radiographically. CT ABDOMEN AND PELVIS Observed: 09/15/2017 Status: F Source: [facility] WITH CONTRAST 8:17 PM HEALTH SYSTEM REPOSITORY Performed at [facility] APPROVED BY: Barron Hobbs MD EXAMINATION: CT ABDOMEN AND PELVIS WITH IV CONTRAST CLINICAL HISTORY: Abdominal pain, cholecystectomy 3 weeks ago, history of pancreatic pseudocysts TECHNIQUE: CT of the abdomen and pelvis was performed using standard technique, scanning from just above the dome of the diaphragm to the symphysis pubis. Sagittal and coronal reconstructions were performed. M: CTAP_3 Contrast: 150 mL Omnipaque 300 IV Contrast oral: None CT Dose-Length Product: 1235.6 mGy*cm CT Dose Reduction Employed: 1. Automated exposure control (AEC) was used. COMPARISON: CT of the abdomen available on [facility] dated 07/08/2017 RESULT: Lower thorax: Lung bases are unremarkable. Liver: No mass. There are several geographic shaped areas of enhancement within the liver favored to represent areas of transient hepatic attenuation difference. There are loculated fluid collections along the margin of the left lobe of the liver between the liver and stomach and liver and abdominal wall. These collections measure 4.8 cm x 2.4 cm series 2 image 17 and 3.8 cm x 3.6 cm series 2 image 24. There is additional fluid tracking along the left lateral margin of the liver. There is a 1.9 cm low-density nodule along the posterior margin of the right lobe of the liver series 2 image 41, increased in size from prior CT.. Biliary: The gallbladder is surgically absent. No fluid collections are identified within the gallbladder fossa. Spleen: No mass. No splenomegaly. Pancreas: There is a low-density masslike area within the pancreatic body and tail measuring 5.5 cm x 3.3 cm. This area is larger than on the previous CT. This could represent an area of chronic pancr eatitis, pancreatic necrosis, complex pseudocyst or mass. There is mild stranding of the fat adjacent to the pancreas. There is a complex fluid tracking between the pancreas and stomach and extending into the lesser sac. The largest collection measures 4.9 cm x 4.9 cm series 2 image 36. Adrenals: No mass. Kidneys: There is a 3.2 cm cyst in the mid right kidney. There is a 1.8 cm cyst in the upper pole of the left kidney. There appear to be multiple left parapelvic cysts. GI tract: There may be some mild thickening of the gastric wall image may be reactive secondary to adjacent fluid collection. There are no dilated loops of large or small bowel. Lymph nodes: No abdominal or pelvic lymphadenopathy. Retroperitoneum: No mass. Vasculature: No evidence of splenic or portal vein thrombus. No abdominal aortic aneurysm. Pelvis: No mass, ascites or fluid collection. Normal appearance of the bladder. Bones/Soft Tissues: There is a left hip replacement. IMPRESSION: There are loculated complex fluid collections located along the margin of the left lobe of the liver, between the stomach and pancreas and within the lesser sac. These collections are new since the samuel or CT. The differential for these collections would include pseudocyst and/or abscess. There is a 5.5 cm x 3.3 cm low-attenuation masslike area within the body/tail of the pancreas. This area is larger than on the prior CT. Differential for this would include an area of chronic pancreat itis, pancreatic necrosis, complex pseudocyst or pancreatic mass. There is mild stranding of the fat adjacent to the body/tail of the pancreas and pancreatitis cannot be excluded. Correlation with lipase levels is recommended. There is a 1.9 cm nodule posterior to the right lobe of the liver. This may represent an additional small fluid collection. This nodule has increased in size since the prior CT. Attention on follow-up studies is recommended. Bilateral renal cysts. ED NOTE Observed: 09/15/2017 Status: COMPLETED Source: [place] 8:04 PM [facility] REPOSITORY HNO ID: [id number] Author: Joseline Hoover (Rn), RN Service: Emergency Medicine Author Type: Registered Nurse Type: ED Notes Filed: 09/15/2017 8:05 PM Note Text: Patient transported to radiology with Tech. ED NOTE Observed: 09/15/2017 Status: COMPLETED Source: [place] 8:02 PM [facility] REPOSITORY HNO ID: [id number] Author: Enrique Villalobos (Rn), RN Service: Emergency Medicine Author Type: Registered Nurse Type: ED Notes Filed: 09/15/2017 8:03 PM Note Text: Medicated after ekg done, allergies reviewed. No needs att. Continue to monitor. ED NOTE Observed: 09/15/2017 Status: COMPLETED Source: [place] 7:53 PM [facility] REPOSITORY HNO ID: [id number] Author: Dina Soni (Rn), RN Service: Emergency Medicine Author Type: Registered Nurse Type: ED Notes Filed: 09/15/2017 7:53 PM Note Text: Patient informed: the name of medication, why we are giving it, possible side effects, what they may expect to feel, and was offered a chance to ask questions, prior to the administration of morphine and zofran ED PROV NOTE Observed: 09/15/2017 Status: COMPLETED Source: [place] 7:52 PM [facility] REPOSITORY HNO ID: [id number] Author: Betty Sheridan DO Service: Emergency Medicine Author Type: Physician Type: ED Provider Notes Filed: 09/15/2017 9:21 PM Note Text: ED Provider Note Patient Name: Evans Newell SERVICE DATE: 09/15/17 History Patient presents with: Abdominal Pain Evans Newell is a 57 year old male with history of abdominal surgery , cholecystectomy, pancreatitis and pseudocysts on pancreas who presents with LUQ and epigastric abdominal pain. Patient has been vomiting with no relief of symptoms. - Symptom began 2 days prior to arrival. - Severity: severe - Timing: constant - Quality: burning and cramping - Pain is exacerbated by eating, palpation, movement. Pain does not radiate. - Pain is not exacerbated by rest. - Symptoms are associated with nausea, rebound tenderness and vomiting. - Symptoms are not associated with bloody diarrhea, bloody vomiting, chills, diarrhea, fever and urinary symptoms. - Improved by nothing. - Not improved by rest. Patient has history of gallstone pancreatitis as well as pseudocysts and had stents placed in the biliary system in May. They were removed. 3 weeks ago had cholecystectomy. Had been doing well. Pain was good. Still had some nausea. States Monday he started with abdominal pain in epigastric and LUQ and has not been able to eat anything. He vomits even water now. He states when he swallows he still gets shoulder pain. He notes he had a good BM yesterday, but nothing today. He notes he can not pass gas today. No fever or chills. No chest pain or shortness of breath. PAST MEDICAL HISTORY Diagnosis Date - History of gallstones - HTN (hypertension) - Pancreatic pseudocyst 05/16/2017 - Pancreatitis - Psychiatric disorder anxiety PAST SURGICAL HISTORY Procedure Laterality Date - ANESTHESIA TOTAL HIP ARTHROPLASTY Left 1996 - CHOLECYSTECTOMY 08/24/2017 - EGD 05/2017, 07/2017 - KNEE SCOPE,DIAGNOSTIC Right 02/02/16 Arthroscopy, knee - ORTHOPEDICS SURGERY HX FAMILY HISTORY Problem Relation Age of Onset - Diabetes Father - cardiac [OTHER] Father 82 - liver transplant [OTHER] Mother Hep C after transfusion Social History Social History Main Topics - Smoking status: Never Smoker - Smokeless tobacco: Never Used - Alcohol use 1.5 oz/week 1 Glasses of Wine (5oz) per week - Drug use: No - Sexual activity: Not on file ALLERGIES No Known Allergies Review of Systems Constitutional: Positive for appetite change. Negative for chills and fever. HENT: Negative for sore throat and trouble swallowing. Respiratory: Negative for shortness of breath, wheezing and stridor. Cardiovascular: Negative for chest pain and leg swelling. Gastrointestinal: Positive for abdominal pain, nausea and vomiting. Negative for blood in stool and diarrhea. Genitourinary: Negative for dysuria and flank pain. Musculoskeletal: Negative for back pain and neck pain. Skin: Negative for rash and wound. Allergic/Immunologic: Negative for immunocompromised state. Neurological: Negative for syncope and weakness. Psychiatric/Behavioral: Negative for agitation and confusion. Physical Exam BP 125/74 Pulse 110 Temp (Src) 97.6 (Temporal Artery) Resp 18 Ht 6' 5 (1.96m) Wt 250 lb (113.4kg) SpO2 98% BMI 29.64 kg/(m2). Physical Exam Constitutional: He is oriented to person, place, and time. He appears well-developed and well-nourished. No distress. HENT: Head: Normocephalic and atraumatic. Right Ear: External ear normal. Left Ear: External ear normal. Mouth/Throat: Uvula is midline. Mucous membranes are dry. No trismus in the jaw. No uvula swelling. No oropharyngeal exudate. Eyes: Conjunctivae are normal. Pupils are equal, round, and reactive to light. Right eye exhibits no discharge. Left eye exhibits no discharge. No scleral icterus. Neck: Normal range of motion. No JVD present. Cardiovascular: Normal rate, regular rhythm and intact distal pulses. Pulmonary/Chest: Effort normal and breath sounds normal. No stridor. No respiratory distress. Abdominal: Soft. He exhibits distension. Bowel sounds are decreased. There is tenderness. There is rebound and guarding. There is no rigidity, no CVA tenderness, no tenderness at McBurney's point and negative Buitrago's sign. Well healing surgical incisions with dermabond in place. C/D/I. No signs of infection. Neurological: He is alert and oriented to person, place, and time. Skin: Skin is warm. Capillary refill takes less than 2 seconds. No rash noted. Nursing note and vitals reviewed. Diagnostic Testing ED Labs Ordered and Reviewed - No data to display Procedures Medical Decision Making MDM Labs, imaging, IV fluids and pain AND nausea meds ordered. Time: 852 pm I discussed results with the patient. He is agreeable to transfer to [facility]. Dr. Avina will be contacted. Blood cultures and zosyn ordered. Time: 905 pm I spoke with Dr. Marrero, covering Dr. Avina, she reviewed the CT images and feels with the pancreatic pathology worse, it would be best to go to [facility] where they have hepatobiliary/pancreas services. Time: 910 pm I spoke with the patient. He had his stents placed at [facility] and is fine with going to [facility] for admission. Time: 918 pm I spoke with Dr. Garcia at [facility] and he is accepting for admission/transfer. ED Course / Clinical Impression Plan The Patient was TRANSFERRED to: [facility] Condition at time of disposition: stable SIGNATURE: Betty Sheridan, DO EKG Interpretation: RHYTHM: Normal sinus rhythm at 96 beats per minute AXIS: Normal axis INTERVALS: Normal [place] interval QRS COMPLEX: Incomplete Right bundle branch block ST SEGMENT: Nonspecific ST-T changes QT INTERVAL: Normal COMPARED WITH PRIOR: unchanged Betty Sheridan, [id number]/15/[id number] HEMOGRAM/DIFF Collected: 09/15/2017 Status: P Source: [facility] [address] SYSTEM REPOSITORY TYPE CODE TESTS RESULT OUT OF REFERENCE UNITS RANGE LAB LWBC(LOINC) 4.8-10.8 thou/cmm High alert WBC 26.1 LAB LRBC(LOINC) 4.60-6.20 mil/cmm Low RBC 4.31 LAB LHGB(LOINC) 14.0-18.0 g/dL Low Hgb 12.1 LAB LHCT(LOINC) 42.0-52.0 % Low Hct 36.2 LAB LMCV(LOINC) 80.0-94.0 fl MCV 84.0 LAB LMCH(LOINC) 27.0-31.0 pg MCH 28.1 LAB LMCHC(LOINC 32.0-36.0 % ) MCHC 33.4 LAB LRDW(LOINC) 11.5-15.9 % RDW 14.8 LAB LPLT(LOINC) 150-400 thou/cmm High Platelet 541 LAB LMPV(LOINC) 7.1-10.5 fl MPV 10.4 Performed By: #### LCBCD #### [place] [address] TROPONIN I Collected: 09/15/2017 Status: F Source: [address] SYSTEM REPOSITORY TYPE CODE TESTS RESULT OUT OF REFERENCE UNITS RANGE LAB LTRP(LOINC) <=0.07 ng/mL Troponin I <0.03 Performed By: #### LTRP #### [place] [address] HEMOGRAM/MANUAL DIFF Collected: 09/15/2017 Status: F Source: [facility] [address] REPOSITORY TYPE CODE TESTS RESULT OUT OF REFERENCE UNITS RANGE LAB LWBC(LOINC 4.8-10.8 thou/cmm ) WBC High alert 26.1 LAB LRBC(LOINC 4.60-6.20 mil/cmm ) Low RBC 4.31 LAB LHGB(LOINC 14.0-18.0 g/dL ) Low Hgb 12.1 LAB LHCT(LOINC 42.0-52.0 % ) Low Hct 36.2 LAB LMCV(LOINC 80.0-94.0 fl ) MCV 84.0 LAB LMCH(LOINC 27.0-31.0 pg ) MCH 28.1 LAB LMCHC(LOIN 32.0-36.0 % C) MCHC 33.4 LAB LRDW(LOINC 11.5-15.9 % ) RDW 14.8 LAB LPLT(LOINC 150-400 thou/cmm ) Platelet High 541 LAB LMPV(LOINC 7.1-10.5 fl ) MPV 10.4 LAB LDTYP(LOIN C) Diff Type Manual Diff LAB LSEGT(LOIN % C) Seg Neutrophil 84.0 LAB LLYMP(LOIN % C) Lymphocyte 8.0 LAB LMNO(LOINC % ) Monocyte 8.0 LAB JUDY(LOINC % ) Eosinophil 0.0 LAB LBASO(LOIN % C) Basophil 0.0 LAB LSEGN(LOIN 3.00-5.67 thou/cmm C) Abs. High Neut 21.92 LAB LLYMN(LOIN 1.50-3.65 thou/cmm C) Abs. Lymph 2.09 LAB LMONN(LOIN 0.20-1.00 thou/cmm C) Abs. High [place] 2.09 LAB LEOSN(LOIN 0.00-0.41 thou/cmm C) Abs. Eosin 0.00 LAB LBASN(LOIN 0.00-0.08 thou/cmm C) Abs. Baso 0.00 LAB LPLES(LOIN C) Platelet Estimate High LAB LWBCM(LOIN C) WBC Morphology see below Result Comment: Toxic vacuoles present LAB LRBCM(LOINC) RBC Morphology Normal Performed By: #### LMCBD #### [place] [address] COMPREHENSIVE PANEL Collected: 09/15/2017 Status: F Source: [facility] 7:50 PM HEALTH SYSTEM REPOSITORY TYPE CODE TESTS RESULT OUT OF REFERENCE UNITS RANGE LAB ELECTRIC KNIFE OPERATOR(LOINC) 136-145 mEq/L Low Sodium Blood 130 LAB LK(LOINC) 3.5-5.1 mEq/L Potassium Blood 3.6 LAB LCL(LOINC) 98-107 mEq/L Low Chloride Blood 96 LAB LCO2(LOINC 21-32 mEq/L ) CO2 Blood 27 LAB LGLU(LOINC 70-99 mg/dL ) Glucose High Blood 133 LAB LBUN(LOINC 7-25 mg/dL ) BUN Blood High 26 LAB LCREA(LOIN 0.67-1.17 mg/dL C) Creatinine Blood 0.91 LAB LCA(LOINC) 8.5-10.1 mg/dL Calcium Blood 9.3 LAB LALB(LOINC 3.4-5.0 g/dL ) Low Albumin Blood 2.8 LAB LTP(LOINC) 6.4-8.2 g/dL Total Protein 7.4 LAB LAST(LOINC 15-37 U/L ) AST-SGOT Blood 18 LAB LALT(LOINC 14-63 U/L ) ALT-SGPT Blood 26 LAB LALKP(LOIN 46-116 U/L C) Alk High Phosphatase 213 LAB LBILT(LOIN 0.2-1.0 mg/dL C) Total High Bilirubin 2.0 LAB LANGP(LOIN 8-20 C) Anion Gap 10 LAB LBNCR(LOIN 10-20 C) High BUN/Creatinine 29 Ratio Performed By: #### LP14 #### [place] [address] LIPASE BLOOD Collected: 09/15/2017 Status: F Source: [facility] 7:[facility] REPOSITORY TYPE CODE TESTS RESULT OUT OF REFERENCE UNITS RANGE LAB LLIP(LOINC) 73-393 U/L Lipase Blood 84 Performed By: #### LLIP #### [facility] [address] [place] [address] MDRD EGFR Collected: 09/15/2017 Status: F Source: [address] [facility] SYSTEM REPOSITORY TYPE CODE TESTS RESULT OUT OF RANGE REFERENCE UNITS LAB LGFRF(LOINC >60mL/min/1.73m ) 2 eGFR >60 Result Comment: If the patient is , multiply the result by 1.210. Performed By: #### LGFR #### [facility] [address] [place], [place] [address] LACTIC ACID Collected: 09/15/2017 Status: F Source: [facility] 7:50 PM HEALTH SYSTEM REPOSITORY TYPE CODE TESTS RESULT OUT OF REFERENCE UNITS RANGE LAB LLA(LOINC) 0.4-2.0 mEq/L Lactic acid 1.6 Performed By: #### LLA #### [facility] [address] [place], [place] [address] HOSP Observed: 09/15/2017 Status: COMPLETED Source: [place] 12:00 AM [facility] REPOSITORY Patient:Evans Newell MRN: <[id number]> Height:6' 5.008(1.956 m) Weight:258 lb (117.028 kg) Outpatient Medications as of 09/19/17: sucralfate (CARAFATE) 1 gram tablet esomeprazole (NEXIUM) 40 mg capsule promethazine (PHENERGAN) 25 mg tablet amLODIPine (NORVASC) 10 mg tablet clonazePAM (KLONOPIN) 1 mg tablet uzfabl-lqjacvza-tbfqrpm (CREON) 24,000-76,000 -120,000 unit cpDR acetaminophen (TYLENOL) 325 mg tablet ondansetron orally disintegrating (ZOFRAN ODT) 4 mg tab(s) ER Go-Pack Admission/Clinic Administered Medications as of 09/19/17: dextrose 5% in NaCl 0.45% with 20 mEq/L KCl iv infusion docusate sodium 100 mg cap(s) (COLACE) enoxaparin 40 mg injection (LOVENOX) acetaminophen 650 mg tab(s) (TYLENOL) pantoprazole DR 40 mg tab(s) (PROTONIX) bemcxr-igcfytgd-rqkskjo 3 capsule cap(s) (CREON 24) ondansetron (PF) 4 mg injection (ZOFRAN) potassium chloride ER 20-40 mEq tab(s) (K-DUR, KLOR-CON) potassium chloride iv piggyback 20 mEq/100 mL sodium phosphate 45 mmol in NaCl 0.9% 250 mL magnesium sulfate in water 2 g in sterile water 50 ml piperacillin-tazobactam 3.375 g in dextrose (iso-osmotic) 50 mL (ZOSYN) oxyCODONE 5-10 mg oral liquid (ROXICODONE) HYDROmorphone 0.2 mg in NaCl 0.9% (DILAUDID) amLODIPine 10 mg tab(s) (NORVASC) Problem List: Loose body in knee, right knee [M23.41] Benign essential hypertension [I10] Obesity [E66.9] Tear of lateral meniscus of right knee [S83.281A] Primary osteoarthritis of right knee [M17.11] Pancreatic pseudocyst [K86.3] WILVER (generalized anxiety disorder) [F41.1] Pancreatitis [K85.90] Malnutrition of moderate degree (HCC) [E44.0] Allergies: No Known Allergies Date Verified:09/19/17 Lab Values Lab Value Units Date High Low POTA* 4.4 mmol/L 09/19/2017 5.1 3.7 CARLOS* 31.4 % 09/19/2017 51.0 39.0 Progress Notes (): Marques Kulkarni (Kera) 09/16/2017 11:26 AM Addendum GENERAL SURGERY HANDP SERVICE DATE: 09/16/2017 SERVICE TIME: 12:43 AM HPI Evans Newell is a 57 year old male with hx of HTN, pancreatitis, pancreatic pseudocysts s/p stents (placed May, removed July), gallstone pancreatitis s/p laparoscopic cholecystectomy with cholangiogram and liver biopsy on 08/24, presenting with 2 days of abdominal pain, N/V, transferred from OSH ED. At this point pt is mostly dry heaving and unable to tolerate even liquids by mouth. Describes pain as localized to epigastric region, just left of midline, radiating to left back/shoulder, similar to his episodes several months ago. Pt does not believe it is associated with food. Has experienced progressive nausea since shortly after most recent surgery. Denies recent fevers but endorses general malaise and full body aches. WBC at OSH was 26.1, started on zosyn prior to transfer. CT A/P demonstrated new loculated fluid collections along left liver margin within lesser sac, masslike region at body/tail of pancreas, and right liver lobe nodule increased in size. Differentials included pseudocyst and/or abscess, hronic pancreatitis, pancreatic necrosis, complex pseudocyst or pancreatic mass. Lipase 82 at OSH. Last BM yesterday was well formed, still passing gas. Denies recent fevers, chills, SOB, chest pain, N/V or diarrhea, weakness, dizziness, changes in urination or bowel habits, or new swelling. PAST MEDICAL HISTORY: PAST MEDICAL HISTORY Diagnosis Date - History of gallstones - HTN (hypertension) - Pancreatic pseudocyst 05/16/2017 - Pancreatitis - Psychiatric disorder anxiety PAST SURGICAL HISTORY: PAST SURGICAL HISTORY Procedure Laterality Date - ANESTHESIA TOTAL HIP ARTHROPLASTY Left 1996 - CHOLECYSTECTOMY 08/24/2017 - EGD 05/2017, 07/2017 - KNEE SCOPE,DIAGNOSTIC Right 02/02/16 Arthroscopy, knee - ORTHOPEDICS SURGERY HX REVIEW OF SYSTEMS Negative except as stated in HPI FAMILY HISTORY: FAMILY HISTORY Problem Relation Age of Onset - Diabetes Father - cardiac [OTHER] Father 82 - liver transplant [OTHER] Mother Hep C after transfusion SOCIAL HISTORY: Social History Substance Use Topics - Smoking status: Never Smoker - Smokeless tobacco: Never Used - Alcohol use 1.5 oz/week 1 Glasses of Wine (5oz) per week MEDICATIONS: Prior to Admission Medications: sucralfate (CARAFATE) 1 gram tablet Take 1 tablet by mouth four times daily for 15 days. Before meals and bedtime esomeprazole (NEXIUM) 40 mg capsule Take 1 capsule by mouth DAILY (6 AM). promethazine (PHENERGAN) 25 mg tablet Take 1 tablet by mouth every 4 hours as needed (for nausea). acetaminophen (TYLENOL) 325 mg tablet Take 2 tablets by mouth every 6 hours as needed. ondansetron orally disintegrating (ZOFRAN ODT) 4 mg tab(s) ER Go-Pack Take 1 tablet by mouth every 8 hours as needed. amLODIPine (NORVASC) 10 mg tablet Take 1 tablet by mouth once daily. clonazePAM (KLONOPIN) 1 mg tablet Take 1 tablet by mouth twice daily as needed for Anxiety for up to 30 days. vhckku-rzwfwfbk-jmhnwei (CREON) 24,000-76,000 -120,000 unit cpDR Take 3 capsules by mouth three times daily with meals. No current hospital medications on file. ALLERGIES: ALLERGIES No Known Allergies PHYSICAL EXAM: Constitutional: Patient Vitals for the past 24 hrs: BP Temp Temp src Pulse Resp SpO2 Height Weight 09/16/17 0031 117/59 37.4 ?C (99.4 ?F) Oral 87 18 94 % 195.6 cm (6' 5.01) 116.2 kg (256 lb 3.2 oz) General Appearance normal body habitus, well-developed , well-nourished Lungs: clear to auscultation bilaterally Heart: RRR, no murmurs Abdomen: soft, no distention, hernias or masses, focally TTP in epigastric region. +Buitrago's sign. CVA tenderness on left Extremities: no edema CT A/P: There are loculated complex fluid collections located along the margin of the left ?lobe of the liver, between the stomach and pancreas and within the lesser sac. These collections are new since the prior CT. ?The differential for these collections would include pseudocyst and/or abscess. ? There is a 5.5 cm x 3.3 cm low-attenuation masslike area within the body/tail of the pancreas. ?This area is larger than on the prior CT. ?Differential for this would include an area of chronic pancreatitis, pancreatic necrosis, complex pseudocyst or pancreatic mass. ?There is mild stranding of the fat adjacent to the ?body/tail of the pancreas and pancreatitis cannot be excluded. ?Correlation with lipase levels is recommended. ? There is a 1.9 cm nodule posterior to the right lobe of the liver. ?This may represent an additional small fluid collection. ?This nodule has increased in size ?since the prior CT. ?Attention on follow-up studies is recommended. ? Bilateral renal cysts. Assessment: 57 yo M with hx of HTN, pancreatitis, pancreatic pseudocysts s/p stenting (placed May, removed July), gallstone pancreatitis s/p laparoscopic cholecystectomy with cholangiogram and liver biopsy on 08/24 presenting with pain associated with new complex loculated collections visualized within the lesser sac and along the left liver margin on CT in addition to enlarged masslike area at the tail/body of pancreas. Given pt's hx of pseudocysts and recent surgery, these collections may represent infected pseudocysts, particularly given leukocytosis, but given the various locations, this may not be the only cause of the collections. Biopsies taken near right costal margin and may have contributed to collections of anterior liver. Tbili also elevated, while lipase is WNL. Overall pt is HDS, afebrile. Plan: - No indications for acute surgical intervention. Further discussion with primary team in the AM pending further lab workup - Labs including LFTs with conjugated bili, nutrition labs - NPO, IVF - Continue zosyn Patient seen and discussed with senior resident controller mechanic. SIGNATURE: Jay Ayers MD PATIENT NAME: Evans Newell DATE: September 16, 2017 TIME: 12:43 AM Pager: [phone] SENIOR ADDENDUM: Patient is a 57yo M with a h/o HTN, gallstone pancreatitis c/b pseudocysts s/p cystgastrostomy and subsequent removal, and recent lap manasa who presented to the OSH ED with worsening N, dry heaves, intolerance to PO, and abdominal pain. Patient was initially diagnosed with gallstone pancreatitis with pseudocysts back in May 2017; prior to that, he was unaware of any clear episodes of pancreatitis. He was referred to GI/Dr. Gracia for pseudocyst drainage, had a cystgastrostomy placed and subsequently removed (July 2017). Most recently, he underwent lap manasa with IOC and liver bx x [address] Avina on 09/02/2017. The liver was biopsied twice in the case and the pathology showed chronic cholecystitis and mild steatosis. He states he did well for 2-3 days after that surgery. Then he started developing nausea and intolerance of PO intake since then, which has been steadily worsening. Has dry heaving and occasional emesis with most foods. 2 days ago, he started having abdominal pain in the LUQ/epigastric area with radiation to his left shoulder, also with malaise. Denies fevers/chills. He presented to the ED and underwent CT imaging showing the below results. Lipase at OSH was 82. Last BM was yesterday, nonbloody, has been having regular BMs throughout. ? 06/07/2017: EGD EUS by Dr. Gracia: cystgastrostomy placed with a [id number] AXIOS stent, 1700cc green/brown fluid was suctioned. 07/19/2017: EGD EUS by Dr. Gracia: stent removal ? CT abd/pel 09/15/2017: There are loculated complex fluid collections located along the margin of the left ?lobe of the liver, between the stomach and pancreas and within the lesser sac. These collections are new since the prior CT. ?The differential for these collections would include pseudocyst and/or abscess. ?? There is a 5.5 cm x 3.3 cm low-attenuation masslike area within the body/tail of the pancreas. ?This area is larger than on the prior CT. ?Differential for this would include an area of chronic pancreatitis, pancreatic necrosis, complex pseudocyst or pancreatic mass. ?There is mild stranding of the fat adjacent to the ?body/tail of the pancreas and pancreatitis cannot be excluded. ?Correlation with lipase levels is recommended. ?? There is a 1.9 cm nodule posterior to the right lobe of the liver. ?This may represent an additional small fluid collection. ?This nodule has increased in size ?since the prior CT. ?Attention on follow-up studies is recommended. ?? Bilateral renal cysts. ? PE: General: AO, NAD CV: RRR Pulm: no resp distress on RA Abd: soft, ND, lap sites are healed, focally TTP in epigastrium, rest of abdomen is soft and NTTP Ext: MARLOW A/P: Patient is a 57yo M with a h/o HTN, gallstone pancreatitis c/b pseudocysts s/p cystgastrostomy and subsequent removal, and recent lap manasa who presented to the [facility] ED with worsening N, dry heaves, intolerance to PO, and abdominal pain. CT scan is concerning for perihepatic fluid collections and an area of inflammation in the body/tail of the pancreas, where the patient had a pseudocyst vs fluid collection on prior scans, concerning for infected pseudocyst vs pancreatic necrosis. WBC elevated at 25, although patient HDS and currently afebrile. --admit to [facility] --NPO --IVF --strict IANDOs --zosyn --CBC, CMP (trend bilirubin), direct bilirubin, lipase --nutrition labs, will need nutrition consult given 2wks h/o poor PO intake --may need MRCP for further imaging, will review images with cynthia Blackmon MD 09/16/2017 Addendum: I have reviewed the history and physical examination obtained and documented by the resident and I personally participated in the batista components. I have discussed the case and management of the patient's care. The following comments revise or confirm relevant batista components of the note. CC: Nausea HPI: Patient had lap manasa approximately 3 weeks ago and has had nausea and some mild abdominal pain since then. He underwent a CT that showed a fluid collection and was transferred to [facility] for further evaluation and management. The patient has a history of pancreatitis thought to be gallstone etiology. Has had axios stent placed. Plan: - Will aspirate fluid collection today - Concern for pancreatic mass in tail causing pancreatitis - Will need EUS to further evaluate pancreatic mass later this week - Antibiotics - Can try diet after procedure Dispo: Continue RNF SIGNATURE: Miguel Angel Kulkarni MD [facility] surgery fellow Pager: [phone] Previous Version Mitzi Gardner (Rn), RN 09/16/2017 1:05 PM Signed .AMBULATORY PATIENT EDUCATION NOTE TOPIC: Procedure image guided drain READINESS TO LEARN COGNITIVE ABILITY: Alert and oriented MOTIVATION TO LEARN: Interested FAMILY SUPPORT: Unable to assess - Family not present INSTRUCTION PROVIDED TO: Patient PATIENT LEARNS BEST BY: Verbal Instruction FACTORS AFFECTING LEARNING: Unable to assess PHYSICAL LIMITATIONS AFFECTING LEARNING: None LEARNING RESPONSE DIAGNOSIS: Procedure image guided drain METHOD OF INSTRUCTION: Verbal instruction PATIENT / FAMILY RESPONSE: Verbalizes understanding of: PAIN MANAGEMENT-Effective strategies to manage pain in addition to pain medication PRE-PROCEDURE INSTRUCTIONS-Correct action to take to follow pre-procedure instructions FOLLOW-UP PLAN: G101 for post procedure monitoring SUPPLEMENTAL MATERIAL: None REFERRAL (RECOMMENDATION): None Electronically Signed By: Mitzi Gardner RN In Department: HOSP MAIN G101 Adrianne Frausto (Res) 09/16/2017 1:15 PM Signed UPDATED PROCEDURAL SEDATION HISTORY AND PHYSICAL EXAMINATION SERVICE DATE: 09/16/2017 SERVICE TIME: 1:14 PM PHYSICAL EXAM MUST BE COMPLETED ON ADMISSION The History and Physical (completed in the past 30 days) has been reviewed and the patient has been examined. The contents accurately reflect the patient's condition with the following additions or revisions since the HANDP was completed. ASA Class: ASA Class:: Patient with mild systemic disease Examination indicates no changes. AIRWAY: Airway Visualization of Uvula: Yes Mouth opening greater than 2 fingerbreadths: Yes Neck Full Range of Motion: Yes LUNGS: Lungs clear to auscultation, Good diaphragmatic excursion CARDIAC: Normal S1 and S2; no rubs, murmurs, or gallops Provisional Diagnosis/Treatment Plan: aspiration of abdominal fluid SEDATION GOAL: Moderate This HANDP can be found in the Electronic Medical Record dated September 16, 2017 . SIGNATURE: Adrianne Frausto DO PATIENT NAME: Evans Newell DATE: September 16, 2017 TIME: 1:14 PM PAGER: [phone] Adrianne Frausto (Res) 09/16/2017 2:07 PM Signed BRIEF OPERATIVE / PROCEDURE NOTE LOG ID: [id number] Surgery/Procedure Date: 09/16/2017 Incision/Procedure Start Time: 1:44 PM Incision Close/Procedure End Time: Surgeon(s)/Proceduralist(s) and Railway Engineer(s): Surgeon(s) and Role: * Maritza Cifuentes N - Primary Adrianne Frausto DO - litigation assistant Procedure(s): aspiration of abdominal collection Anesthesia: Procedural Sedation Findings: high density material which could not be aspirated, suspect hematoma Estimated Blood Loss: minimal minimal Specimens: Two 4cc saline lavages with needle in collectoin Complications: None Pre-Op/Pre-Procedure Diagnosis: hx of pancreatitis, abdominal collection Post-Op/Post-Procedure Diagnosis: same SIGNATURE: Adrianne Frausto DO PATIENT NAME: Evans Newell DATE: September 16, 2017 TIME: 2:05 PM PAGER/CONTACT #: [phone] Mic Madrid (Mary)MARY 09/16/2017 2:13 PM Signed Radiology Service Progress Note PATIENT NAME: Evans Newell DATE OF SERVICE: September 16, 2017 TIME: 2:12 PM PATIENT IDENTITY VERIFICATION COMPLETED USING TWO (2) METHODS: Patient confirmed name verbally and ID band matches.. PATIENT GENDER DATA: Male PATIENT RELEVANT IMPLANT DATA REVIEWED: Yes RADIOLOGY DEPARTMENT: CT; Exam(s) Completed: ct guided aspiration PERIPHERAL IV DATA: Not applicable SIGNED BY: MARY Garcia September 16, 2017 2:12 PM Marques Kulkarni (Kera) 09/17/2017 11:52 AM Signed [facility] PROGRESS NOTE: ? Patient Name: Evans Newell ? PRIMARY SERVICE: General Surgery ? ASSESSMENT AND PLAN: 57 year old male s/p cholecystectomy with intra-abdominal fluid collection, history of pancreatitis - Fluid collection aspirated yesterday without any signs of infection, likely hematoma - Continue antibiotics - Patient tolerated liquids yesterday, will advance to soft diet today and see how he tolerates it - Protein supplements - Creon x1 (patient has been on this before and states it helps his symptoms) - Consult to GI for EUS of pancreas - Ambulate CC: Hungry INTERVAL HPI: No new issues. Underwent perc aspiration yesterday by radiology. Unable to aspirate fluid, felt to be hematoma. Tolerated liquids without any nausea or vomiting or abdominal pain. Leukocytosis improving. ? PHYSICAL EXAM: BP 105/50 Pulse 77 Temp 37.3 ?C (99.1 ?F) (Oral) Resp 17 Ht 195.6 cm (6' 5.01) Wt 116.2 kg (256 lb 3.2 oz) SpO2 97% BMI 30.37 kg/m? Gen: NAD Pulm: Non-labored breathing, chest rise symmetric Abd: S, NT, ND Ext: MARLOW spontaneously Neuro: Answering questions appropriately ? Miguel Angel Kulkarni MD [facility] surgery fellow Pager: [phone] oRni Solorzano (MD Cheryl 09/18/2017 6:44 AM Addendum INITIAL CONSULT GASTROENTEROLOGY SERVICE DATE: 09/17/2017 SERVICE TIME: 1:55 PM Consulting Service: General Surgery Opinion/advice regarding: Need for EUS Subjective HPI: This is a 57 year old male with PMH significant for HTN, 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 The patient was noted to have elevated WBC count of 26 on admission and was started on zosyn. He has been afebrile since being here and cultures are negative. CRP is 27.8. CT abdomen with IV contrast was done that showed loculated fluid collections between liver and stomach and liver and abdominal wall. Complex fluid tracking between pancreas and stomach and extending into lesser sac was also seen. In addition, low density masslike area within pancreatic body and tail measuring 5.5 X 3.3 cm was also seen (looking at CT from 05/2017, 3.6 cm ill defined low attenuation area within pancreatic tail also seen). As there was a concern for infected collection, aspiration of collection was attempted in Radiology but given high density of material, it could not be aspirated and hematoma was suspected. Patient is currently tolerating liquids. CT abdomen: 09/15/2017 Liver: No mass. ?There are several geographic shaped areas of enhancement within the liver favored to represent areas of transient hepatic attenuation difference. ?There are loculated fluid collections along the margin of the left lobe of the liver between the liver and stomach and liver and abdominal wall. ?These collections measure 4.8 cm x 2.4 cm series 2 image 17 and 3.8 cm x 3.6 cm series 2 ?image 24. ?There is additional fluid tracking along the left lateral margin of the liver. ?There is a 1.9 cm low-density nodule along the posterior margin of the ?right lobe of the liver series 2 image 41, increased in size from prior CT.. EUS: 06/07/2017 Findings: ? ? ?Endoscopic Finding : ? ? ?The Z-line was irregular and was found 39 cm from the incisors. ? ? ?There were esophageal mucosal changes suspicious for [place]'s esophagus ? ? ?present in the lower third of the esophagus. The maximum longitudinal ? ? ?extent of these mucosal changes was 1 cm in length. ? ? ?A deformity was found in the gastric fundus and at the pylorus due to ? ? ?the indentation from the walled of pancreatic collection. The decision ? ? ?was made to create a cystogastrostomy using the Hot AXIOS stent system. ? ? ?Once an appropriate position in the stomach was identified, the common ? ? ?wall between the stomach and the cyst was interrogated utilizing color ? ? ?Doppler imaging to identify interposed vessels. The stomach wall and the ? ? ?cyst were punctured under endosonographic guidance. The AXIOS stent and ? ? ?electrocautery device was introduced through the working channel and ? ? ?advanced. Current was applied to the cautery tip to enter the cyst ? ? ?cavity. The AXIOS device was advanced into the cyst, and a 15 x 10 mm ? ? ?AXIOS stent was placed with the flanges in close approximation to the ? ? ?ren of the cyst and the stomach through the cystogastrostomy. 1700 cc ? ? ?of greenish brown fluid was suctioned. ? ? ?The examined duodenum was normal. CT abdomen: 05/16/2017 1. ?3.6 cm round heterogeneous ill-defined low-attenuation area within pancreatic tail with small focal area of pancreatic ductal dilatation: 10 mm. Findings suspicious for pancreatic neoplasm. Differential diagnosis includes focal pancreatitis. This is contiguous with elongated lobular fluid attenuation collection, with multiple adjacent fluid attenuation collections within central upper abdomen, as described. Findings suggest multiple pseudocysts. It is uncertain whether they communicate. None of them contain gas. PAST MEDICAL HISTORY Diagnosis Date - History of gallstones - HTN (hypertension) - Pancreatic pseudocyst 05/16/2017 - Pancreatitis - Psychiatric disorder anxiety PAST SURGICAL HISTORY Procedure Laterality Date - ANESTHESIA TOTAL HIP ARTHROPLASTY Left 1996 - CHOLECYSTECTOMY 08/24/2017 - EGD 05/2017, 07/2017 - KNEE SCOPE,DIAGNOSTIC Right 02/02/16 Arthroscopy, knee - ORTHOPEDICS SURGERY HX FAMILY HISTORY Problem Relation Age of Onset - Diabetes Father - cardiac [OTHER] Father 82 - liver transplant [OTHER] Mother Hep C after transfusion Social History Substance Use Topics - Smoking status: Never Smoker - Smokeless tobacco: Never Used - Alcohol use 1.5 oz/week 1 Glasses of Wine (5oz) per week MEDICATIONS: Prior to Admission Medications: sucralfate (CARAFATE) 1 gram tablet Take 1 tablet by mouth four times daily for 15 days. Before meals and bedtime esomeprazole (NEXIUM) 40 mg capsule Take 1 capsule by mouth DAILY (6 AM). promethazine (PHENERGAN) 25 mg tablet Take 1 tablet by mouth every 4 hours as needed (for nausea). acetaminophen (TYLENOL) 325 mg tablet Take 2 tablets by mouth every 6 hours as needed. ondansetron orally disintegrating (ZOFRAN ODT) 4 mg tab(s) ER Go-Pack Take 1 tablet by mouth every 8 hours as needed. amLODIPine (NORVASC) 10 mg tablet Take 1 tablet by mouth once daily. clonazePAM (KLONOPIN) 1 mg tablet Take 1 tablet by mouth twice daily as needed for Anxiety for up to 30 days. zmwkkb-ahwzotsm-yrfdpgj (CREON) 24,000-76,000 -120,000 unit cpDR Take 3 capsules by mouth three times daily with meals. Current hospital medications: acetaminophen 650 mg tab(s) (TYLENOL) 650 mg ORAL q [address] 40 mg tab(s) (PROTONIX) 40 mg ORAL DAILY (6 AM) vkucfj-hnpemlxz-cvlvjyf 3 capsule cap(s) (CREON 24) 3 capsule ORAL TID w MEALS ondansetron (PF) 4 mg injection (ZOFRAN) 4 mg INTRAVENOUS q 6 H PRN potassium chloride ER 20-40 mEq tab(s) (K-DUR, KLOR-CON) 20- 40 mEq ORAL PRN potassium chloride iv piggyback 20 mEq/100 mL 20 mEq INTRAVENOUS PRN sodium phosphate 45 mmol in NaCl 0.9% 250 mL 45 mmol INTRAVENOUS PRN(NO DISPENSE) magnesium sulfate in water 2 g in sterile water 50 ml 2 g INTRAVENOUS PRN(NO DISPENSE) piperacillin-tazobactam 3.375 g in dextrose (iso-osmotic) 50 mL (ZOSYN) 3.375 g INTRAVENOUS q 6 H dextrose 5% in NaCl 0.45% with 20 mEq/L KCl iv infusion 100 mL/hr INTRAVENOUS CONTINUOUS heparin 5,000 Units injection 5,000 Units SUBCUTANEOUS q 12 H oxyCODONE 5-10 mg oral liquid (ROXICODONE) 5-10 mg ORAL q 4 H PRN HYDROmorphone 0.2 mg in NaCl 0.9% (DILAUDID) 0.2 mg INTRAVENOUS q 3 H PRN amLODIPine 10 mg tab(s) (NORVASC) 10 mg ORAL DAILY ALLERGIES No Known Allergies GI SPECIFIC REVIEW OF SYSTEMS: Negative for nausea, vomitting Negative for decreased appetite Negative for change in weight No alteration in bowel habits OTHER ROS: Negative for fever, night sweats, sleep problems, mood or depression. Objective PHYSICAL EXAM: BP 122/58 Pulse 76 Temp 36.5 ?C (97.7 ?F) (Oral) Resp 16 Ht 195.6 cm (6' 5.01) Wt 116.2 kg (256 lb 3.2 oz) SpO2 96% BMI 30.37 kg/m? GENERAL- AAO x 3, no distress HEENT: Moist mucus membranes, no carotid bruit LUNGS: Clear to auscultation bilaterally CARDIAC: S1, S2 heard, no murmur appreciated ABDOMEN: Soft, non-tender without guarding or rigidity, normal bowel sounds EXTREMITIES: No pedal edema DATA: Diagnostic Tests Reviewed for Today's Visit: Most recent labs and imaging results. 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 From GI standpoint, we will do EUS to try to sample the lesion seen in the pancreas. - I have cancelled the EUS order placed by primary team as it was not ordered with anesthesia and placed the appropriate order - Keep patient NPO after midnight Regarding the fluid collections, I asked primary team if we need to consider draining them based on EUS appearance. Was told to touch base with primary team about it in the morning SIGNATURE: Roni Solorzano MD PATIENT NAME: Evans Newell DATE: September 17, 2017 TIME: 1:55 PM PAGER/CONTACT #: [phone] Previous Version Elijah Casanova 09/18/2017 12:15 PM Addendum [facility] PROGRESS NOTE: ? Patient Name: Evans Newell ? PRIMARY SERVICE: General Surgery ? ASSESSMENT AND PLAN: 57 year old male s/p cholecystectomy with intra-abdominal fluid collection, history of pancreatitis. - Fluid collection aspirated without any signs of infection, likely hematoma - Continue antibiotics - Planned Repeat EUS scheduled tomorrow. GIS and NPO after MN for procedure - Protein supplements - Creon x1 (patient has been on this before and states it helps his symptoms) - Ambulate - Will likely need distal panc/splenectomy at some point. Splenectomy vaccines today INTERVAL HPI: No new issues ? PHYSICAL EXAM: BP 116/60 Pulse 71 Temp 37.6 ?C (99.6 ?F) (Oral) Resp 18 Ht 195.6 cm (6' 5.01) Wt 117 kg (258 lb) SpO2 96% BMI 30.59 kg/m? Gen: NAD Pulm: Non-labored breathing, chest rise symmetric Abd: Softer today, NT, ND Ext: MARLOW spontaneously Neuro: Answering questions appropriately Eren Cunha MD General Surgery, PGY-2 Pager: [phone]. Please contact [phone] after 6PM weekdays and on weekends September 18, 2017 9:59 AM [facility] STAFF PHYSICIAN NOTE OF PERSONAL INVOLVEMENT IN CARE I have reviewed the progress note obtained and documented by the resident and I personally participated in the batista components. I have discussed the case and management of the patient's care. The following comments revise or confirm relevant batista components of the note. IMPRESSION: This is a 57 year old admitted with post manasa pancreatitis possible pancreatic tail lesion PLAN: EGD assessment with EUS tomorrow. Away cultures. Care Coordination The majority of the visit was spent counseling and/or coordinating care for the patient. 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 No Advance Directive: Current Advance Directive: None [place] Operator Assisted with AD Completion: No Unable to Assist Due To:: Other: See Comment (Pt declines. States has documents, just not with him. is surrogate decision maker which is in line / [place] hierarchy.) Health Literacy: 1. How often do you need to have someone help you when you read instructions, pamphlets, or other written material from your doctor or pharmacy? Never - 1 2. How confident are you filling out medical forms by yourself? Extremely - 1 If Patient scores > 3 on either question, the following interventions were put into place: Patient did not score > 3 FUNCTIONAL AND COGNITIVE/BEHAVIORAL PRIOR TO ADMISSION: Baseline Mental Status: Alert AND Oriented, Person, Place , Time and Situation Functional Status: Independent Does Patient Currently Receive Any Community Services or Home Care? None Equipment Prior to Admission: None Has the Patient Been in a Jail Facility in the Past 30 days? 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 No Caregiver Needed Patient's transition needs and plan for meeting these needs: no CM facilitated needs currently identified Does the patient have an acute stroke diagnosis, or has the patient had a stroke during this admission? No Medication Adherence: I am convinced of the importance of my prescription medication: Agree completely - 0 I worry that my prescription medication will do more harm than good to me Disagree completely - 0 I feel financially burdened by my eoz-xj-prpdty expenses for my prescription medication: Disagree completely - 0 Patient is categorized as low risk < 2 Are you interested in bedside delivery of your medications? No Food Concerns: In the Last Month, Have You had Trouble Getting Food? No trouble getting food During the Last Month, Have You Worried Whether Your Food Would Run Out Before You Had Enough Money to Buy More? No Is the Patient Psychosocially Complex? No ASSESSMENT AND PLAN: Medical Needs: None Psychosocial Needs: None FREEDOM OF CHOICE EXPLAINED: N/A POTENTIAL TRANSITION PLANS No Services Indicated Pt admitted for 2 days of abdominal pain, N/V, transferred from OSH ED. EGD EUS scheduled for 09/19/17. Pt seen at bedside, present. 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 Denies use of home care services or assistive equipment. Pt is employed. No skilled needs are currently identified. CM will continue to follow. SIGNATURE: Pietro Patel RN PATIENT NAME: Evans Newell DATE: September 18, 2017 TIME: 10:22 AM PAGER/CONTACT #: [phone] Rochelle Skelton (Rd) 09/18/2017 11:37 AM Signed NUTRITION THERAPY INITIAL ASSESSMENT SERVICE DATE: 09/18/2017 SERVICE TIME: 10:30 AM RECOMMENDED MALNUTRITION DIAGNOSIS: MODERATE PROTEIN-CALORIE MALNUTRITION In the context of Acute Illness or Injury based on: Insufficient Energy Intake: <75% for >7 days Subcutaneous Fat Loss: Mild Loss Muscle Loss Mild Loss NUTRITION CARE PLAN: Problem, Etiology and Signs/Symptoms: Suboptimal oral intake related to inability to consume sufficient nutrients 2/2 altered GI function as evidenced by pt/ endorsement of same and mild muscle/fat depletion Intervention: 1. GI soft diet at this time per primary, will monitor tolerance and need for further restriction (fat), lipase WNL 2. Ensure Clear trial, daily provides 240 kcal, 8 g protein 3. Ensure High Protein BID, provides 320 kcal, 32 g protein 4. Continue Creon per primary, closely monitor BM frequency, pt reports historical constipation with higher dosage 5. Recommend Vitamin D level check 6. 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 and Evaluation: Goal: Meet >75% of estimated needs Monitor fluid/electrolyte balance Monitor labs, I/Os, vital signs, weight Discharge Nutrition Recommendations: Diet: GI soft, fat restriction need TBD Supplements: High protein supplementation TID for caloric/protein intake adequacy promotion, poor tolerance to higher fat containing formulas Per HPI: Evans Newell is a 57 year old male with hx of HTN, pancreatitis, pancreatic pseudocysts s/p stents (placed May, removed July), gallstone pancreatitis s/p laparoscopic cholecystectomy with cholangiogram and liver biopsy on 08/24, presenting with 2 days of abdominal pain, N/V, transferred from OSH ED. At this point pt is mostly dry heaving and unable to tolerate even liquids by mouth. Describes pain as localized to epigastric region, just left of midline, radiating to left back/shoulder, similar to his episodes several months ago. Pt does not believe it is associated with food. Has experienced progressive nausea since shortly after most recent surgery. Denies recent fevers but endorses general malaise and full body aches. WBC at OSH was 26.1, started on zosyn prior to transfer. CT A/P demonstrated new loculated fluid collections along left liver margin within lesser sac, masslike region at body/tail of pancreas, and right liver lobe nodule increased in size. Differentials included pseudocyst and/or abscess, hronic pancreatitis, pancreatic necrosis, complex pseudocyst or pancreatic mass. Lipase 82 at OSH. Last BM yesterday was well formed, still passing gas. Denies recent fevers, chills, SOB, chest pain, N/V or diarrhea, weakness, dizziness, changes in urination or bowel habits, or new swelling. PAST MEDICAL HISTORY Diagnosis Date - History of gallstones - HTN (hypertension) - Pancreatic pseudocyst 05/16/2017 - Pancreatitis - Psychiatric disorder anxiety CT abd/pelvis results: IMPRESSION: ? There are loculated complex fluid collections located along the margin of the left ?lobe of the liver, between the stomach and pancreas and within the lesser sac. These collections are new since the prior CT. ?The differential for these collections would include pseudocyst and/or abscess. ? There is a 5.5 cm x 3.3 cm low-attenuation masslike area within the body/tail of the pancreas. ?This area is larger than on the prior CT. ?Differential for this would include an area of chronic pancreatitis, pancreatic necrosis, complex pseudocyst or pancreatic mass. ?There is mild stranding of the fat adjacent to the ?body/tail of the pancreas and pancreatitis cannot be excluded. ?Correlation with lipase levels is recommended. ? There is a 1.9 cm nodule posterior to the right lobe of the liver. ?This may represent an additional small fluid collection. ?This nodule has increased in size ?since the prior CT. ?Attention on follow-up studies is recommended. ? Bilateral renal cysts. Present Diet Order: Gastrointestinal GISoft Enteral Access: None Nutritional Intake Prior to Admission: <75% estimated energy needs over the past 3+ month(s) -Pt seen at bedside with who endorses a poor intake since April when all this started. States that he has his good days and bad but more have been bad lately. Attributes drop in appetite primarily to N/V and c/o feeling nauseous every time I eat. Endorses consistently dry heaving throughout night as well. Reports progressive weight loss since April as well which appears accurate per EMR weight history review. Does report symptom improvement with Creon but apprehensive about 3 tablet dosage 2/2 previous c/o constipation. Does admit to inconsistent intake and subjective reports of inadequate fluid intake. Has been self dosing Creon (1 tablet with small meals, 2 tablets with large meals). Also c/o reflux like symptoms. Findings suspicious for [place]'s during EGD in May. Started on Nexium at end of August. Pt has trialed multiple supplements but has noticed the higher protein ones (i.e Muscle Milk) are better tolerated. GI symptoms: nausea, vomiting, early satiety and constipation Abdominal Exam: abdomen is distended Is the patient having any pain that is interfering with oral/enteral intake? Yes LOCATION: abdomen ANTHROPOMETRICS Height: 195.6 cm (6' 5.01) Admission Weight: 116.2 kg (256 lb 3.2 oz) Current Weight: 117 kg (258 lb) Body mass index is 30.59 kg/m?. class 1 obesity Weight has decreased by 4.6 kg over 1 months representing 3.8% weight change, progressive weight loss notable, but clinically insignificant Last Wt 09/18/17 : 117 kg (258 lb) 09/15/17 : 113.4 kg (250 lb) 08/15/17 : 121.6 kg (268 lb)-3.8% loss x 1 month 05/16/17 : 127.1 kg (280 lb 3.2 oz) 05/16/17 : 128.4 kg (283 lb)-8.9% loss x 4 months 03/13/17 : 129.8 kg (286 lb 1.9 oz) 03/05/17 : 127 kg (280 lb) 01/05/17 : 130 kg (286 lb 11.2 oz) 11/28/16 : 130.7 kg (288 lb 3.2 oz) 07/11/16 : 133.4 kg (294 lb) 02/02/16 : (!) 138.3 kg (305 lb) 01/29/16 : (!) 138.5 kg (305 lb 6.4 oz) 01/27/16 : (!) 138.8 kg (306 lb) [place] body weight: 208 lb (94.5 kg) per [facility] Dosing Weight: 117 kg Resting Metabolic Rate: 2111 Estimated kilocalorie needs: 9666-1081 kilocalories determined by 20-25 kcal/kg Estimated protein needs: 129-176 grams determined by 1.1-1.5 g/kg Dosing weight Estimated fluid needs: 4400-9830 milliliters based on 1 mL per kcal NUTRITION FOCUSED PHYSICAL EXAM: Subcutaneous Fat Loss Orbital Mild Triceps Mild Mid-axillary at the iliac crest No fat loss-Mild Muscle Loss Locations: Temporalis Moderate Pectoralis Unable to determine at this time-h/o broken collarbone Deltoids Mild Interosseous No muscle loss Latissimus dorsi, trapezius Mild Quadriceps Mild Gastrocnemius No muscle loss Potential micronutrient deficiency revealed in: No deficiency identified Edema: No Ascites: No Assessment of Functional Status: Functional capacity is unrelated to nutrition status Temperature Max in 24 hours: Temp (24hrs), Av.1 ?C (98.8 ?F), Min:36.5 ?C (97.7 ?F), Max:37.6 ?C (99.6 ?F) BP 107/59 Pulse 70 Temp 36.9 ?C (98.5 ?F) (Oral) Resp 16 Ht 195.6 cm (6' 5.01) Wt 117 kg (258 lb) SpO2 97% BMI 30.59 kg/m? Recent Labs 09/18/17 0509/17/17 0522 09/16/17 0614 GLUC 110* 112* 120* BUN 10 14 21 CREAT 0.78 0.84 0.95 NA 137 137 136 K 4.3 3.8 3.8 CHLOR 97 99 97 CO2 26 27 26 ALB 2.5* 2.5* 2.8* PREALB -- <3* 4* CRP -- 27.8* -- TRANSF -- -- 138* HB 10.2* 9.7* 10.2* HCT 31.8* 30.3* 31.9* WBC 16.65* 17.67* 20.59* P 3.5 -- 2.4* MG 2.0 2.0 2.0 Potential Signs of Inflammation: leukocytosis, hyperglycemia, hypoalbuminemia, low prealbumin, high CRP and imaging studies Intake/Output 09/15/17 0700 - 09/16/17 0659 09/16/17 07 - 09/17/17 0659 09/17/17 0700 - 09/18/17 0659 09/18/17 07 - 09/19/17 0659 Intake (ml) 1450 2450 3875.3 400 Output (ml) 1 800 1275 200 Net (ml) 1449 1650 2600.3 200 Pertinent Medications: Norvasc, Colace, Creon, D5% in 0.45% NS with 20 MEq KCl @ 100 ml/hr provides 408 kcal Surgical Incision Abdomen - Laparoscopy Sites (Active) MNT Billing Type: Initial Assess/15 min 4 units SIGNATURE: Rochelle Skelton RD PATIENT NAME: Evans Newell DATE: September 18, 2017 TIME: 11:12 AM PAGER: [phone] Jose Esparza (Res)MD 09/19/2017 9:00 AM Signed [facility] PROGRESS NOTE: ? Patient Name: Evans Newell ? PRIMARY SERVICE: General Surgery ? ASSESSMENT AND PLAN: 57 year old male s/p cholecystectomy with intra-abdominal fluid collection, history of pancreatitis. - Fluid collection aspirated without any signs of infection - Continue antibiotics - Planned Repeat EUS scheduled today with corpak placement, ok for GIS after - Protein supplements - Creon - Ambulate - Will likely need distal panc/splenectomy at some point (discussed at [facility] conference today and recommended for EUS to eval for mass however unlikely, and may need distal panc for smoldering pancreatitis). Splenectomy vaccines already done INTERVAL HPI: No new issues ? PHYSICAL EXAM: BP 108/56 Pulse 66 Temp 36.9 ?C (98.5 ?F) (Oral) Resp 16 Ht 195.6 cm (6' 5.01) Wt 117 kg (258 lb) SpO2 97% BMI 30.59 kg/m? Gen: NAD Pulm: Non-labored breathing, chest rise symmetric Abd: soft, NT, ND Ext: MARLOW spontaneously Neuro: Answering questions appropriately Previous Version Progress Notes ([facility]): Ina Lopez RN 09/13/2017 1:27 PM Signed Patient My chart Messages requesting refills as follows: Replied to his message per Dr Avina to start Carafate 4 times/ day. Routed to MD to sign med. Pending Prescriptions Disp Refills SUCRALFATE 1 GRAM TABLET Sig: Take 1 tablet by mouth four times daily. Haley Avina 09/13/2017 2:58 PM Signed Done - let him know I gave a 15 day supply. If this helps we can change to 30 day. Ina Lopez RN 09/13/2017 3:12 PM Signed Spoke with patient and advised of information per MD. Patient verbalized understanding. No further questions at this time. Advised to call if any future problems or concerns. MD message noted. Encounter closed. PROGRESS Observed: 09/07/2017 Status: COMPLETED Source: [place] 4:17 PM [facility] REPOSITORY HNO ID: [id number] Author: Haley Avina Service: (none) Author Type: Physician Type: Progress Notes Filed: 09/07/2017 4:22 PM Note Text: HPI: Evans returns in follow-up of his laparoscopic cholecystectomy. His abdominal complaints are much improved. His only remaining complaint is significant nausea when he lies flat. This is episodic however occurs every night. This was occurring even prior to his cholecystectomy. He has been on omeprazole for the past 2 months. He denies dysphagia. He is tolerating a regular diet denies diarrhea. EXAM: There were no vitals taken for this visit. Incisions are healing nicely. There is no evidence for infection. PATHOLOGY: Chronic cholecystitis with cholelithiasis ASSESSMENT: (Z90.49) Status post laparoscopic cholecystectomy (primary encounter diagnosis) Evans returns in follow-up of laparoscopic cholecystectomy performed for gallstone pancreatitis. He continues to have significant nausea when lying flat. He has tried omeprazole over the past 2 months without relief. I will see change him to Nexium. If there is no improvement over the next 2 weeks will add Carafate. He was instructed to follow-up with gastroenterology for upper endoscopy. During his upper endoscopy in May performed for pancreatic pseudocyst decompression it was mentioned he had findings suspicious for [place]'s. I do not see pathology for this. He is comfortable with this plan. He can return to see me as needed. Office Visit on 09/07/17 -esomeprazole (NEXIUM) 40 mg capsule Haley Avina MD CNOV Observed: 09/07/2017 Status: COMPLETED Source: [place] 8:30 AM [facility] REPOSITORY Office Visit (BINU) OSIRISEVANS ([id number]) 1960 M Date Time Provider Department 09/07/17 8:30 AM HALEY AVINA During your visit today, we recorded the following information about you: Haley Avina MD 09/07/2017 9:04 AM Signed Stop omeprazole and start Nexium. Take daily. If no improvement in 2 weeks will add carafate. Haley Avina MD 09/07/2017 4:22 PM Signed HPI: Evans returns in follow-up of his laparoscopic cholecystectomy. His abdominal complaints are much improved. His only remaining complaint is significant nausea when he lies flat. This is episodic however occurs every night. This was occurring even prior to his cholecystectomy. He has been on omeprazole for the past 2 months. He denies dysphagia. He is tolerating a regular diet denies diarrhea. EXAM: There were no vitals taken for this visit. Incisions are healing nicely. There is no evidence for infection. PATHOLOGY: Chronic cholecystitis with cholelithiasis ASSESSMENT: (Z90.49) Status post laparoscopic cholecystectomy (primary encounter diagnosis) Evans returns in follow-up of laparoscopic cholecystectomy performed for gallstone pancreatitis. He continues to have significant nausea when lying flat. He has tried omeprazole over the past 2 months without relief. I will see change him to Nexium. If there is no improvement over the next 2 weeks will add Carafate. He was instructed to follow-up with gastroenterology for upper endoscopy. During his upper endoscopy in May performed for pancreatic pseudocyst decompression it was mentioned he had findings suspicious for [place]'s. I do not see pathology for this. He is comfortable with this plan. He can return to see me as needed. Office Visit on 09/07/17 -esomeprazole (NEXIUM) 40 mg capsule Haley Avina MD Referring Provider: HALEY AVINA [[id number]] Allergies As of Date: 09/07/2017 (No Known Allergies) Date Reviewed: 09/07/2017 Reviewed by: Haley Avina - Fully Assessed Reason for Visit: Post Op [174] Cmt: Cholecystectomy Primary Visit Diagnosis:Status post laparoscopic cholecystectomy [Z90.49] Order(s):esomeprazole (NEXIUM) 40 mg capsuleTake 1 capsule by mouth DAILY (6 AM).Disp: 30 capsuleRfl: 5 Prescriptions as of 09/07/2017 Sig: ESOMEPRAZOLE MAGNESIUM 40 MG * Take 1 capsule by mouth DAILY* PROMETHAZINE 25 MG TABLET Take 1 tablet by mouth every * AMLODIPINE 10 MG TABLET Take 1 tablet by mouth once d* CLONAZEPAM 1 MG TABLET Take 1 tablet by mouth twice * [id number]-MDDHDJI 24,00* Take 3 capsules by mouth thre* ACETAMINOPHEN 325 MG TABLET Take 2 tablets by mouth every* ONDANSETRON 4 MG TAB, RAPID D* Take 1 tablet by mouth every * Problem List As Of Date 09/07/2017 Noted Resolved Loose body in knee, right knee [M23.41] INVALID FOR* Benign essential hypertension [I10] INVALID FOR* Obesity [E66.9] INVALID FOR* Tear of lateral meniscus of right knee [S83.281*INVALID FOR* Primary osteoarthritis of right knee [M17.11] INVALID FOR* Pancreatic pseudocyst [K86.3] INVALID FOR* WILVER (generalized anxiety disorder) [F41.1] INVALID FOR* Gallstones [K80.20] INVALID FOR*08/24/2017 More... Pancreatitis [K85.90] INVALID FOR*08/24/2017 More... Other instructions from your clinician: Stop omeprazole and start Nexium. Take daily. If no improvement in 2 weeks will add carafate. Prescriptions ordered this encounter Disp Refills Start End ESOMEPRAZOLE MAGNESIUM 40 MG CAPSULE* 30 c* 5 09/07/2017 10/07/2017 Route: ORAL Sig: Take 1 capsule by mouth DAILY (6 AM). Medications Discontinued During This Encounter Omeprazole 40 mg capsule 90 c* 1 08/14/2017 09/07/2017 Route: ORAL Sig: Take 1 capsule by mouth once daily. Disc: Changing Therapy/Dosage Form Encounter Status:Closed by HALEY AVINA MD on 09/07/17 NURSING PROG Observed: 08/24/2017 Status: COMPLETED Source: [place] 2:40 PM [facility] REPOSITORY HNO ID: [id number] Author: Humberto SamsonRn) NICKI Harmon Service: Nursing Author Type: Registered Nurse Type: Nursing Progress Note Filed: 08/24/2017 2:46 PM Note Text: PT UP AT BEDSIDE AMBULATED TO BATHROOM GAIT STEADY. VOIDED Q/S RETURNED TO BED PLAN OF CARE Observed: 08/24/2017 Status: COMPLETED Source: [place] 2:04 PM [facility] REPOSITORY HNO ID: [id number] Author: Estefany Lennon (Underwriting Director) Service: (none) Author Type: (none) Type: Plan of Care Filed: 08/24/2017 2:04 PM Note Text: POKE IN BEDSIDE DELIVERY SURVEY 1. Patient to use [facility] Bedside Delivery - YES 2. If fax, patient would like us to fax prescriptions to Pharmacy of choice a. Pharmacy: b. Location: c. Phone: 3. Insurance card on file - YES 4. Credit card for payment - YES PHARMACY BEDSIDE DELIVERY SERVICE Patient Name: Evans Newell The marked outpatient medications were Filled at: [facility] and delivered to the patient's bedside to pharm p/u Medication List START taking these medications X oxyCODONE-acetaminophen 5-325 mg tablet Commonly known as: PERCOCET Take 1 tablet by mouth every 4 hours as needed for up to 3 days. CONTINUE taking these medications acetaminophen 325 mg tablet Commonly known as: TYLENOL Take 2 tablets by mouth every 6 hours as needed. amLODIPine 10 mg tablet Commonly known as: NORVASC Take 1 tablet by mouth once daily. clonazePAM 1 mg tablet Commonly known as: KlonoPIN Take 1 tablet by mouth twice daily as needed for Anxiety for up to 30 days. wsmzrq-diwiogra-ubigjql 24,000-76,000 -120,000 unit Cpdr Commonly known as: CREON Take 3 capsules by mouth three times daily with meals. Omeprazole 40 mg capsule Take 1 capsule by mouth once daily. ondansetron 4 mg tablet Commonly known as: ZOFRAN Take 1 tablet by mouth every 12 hours as needed for nausea. ondansetron orally disintegrating 4 mg tab(s) ER Go-Pack Commonly known as: ZOFRAN ODT Take 1 tablet by mouth every 8 hours as needed. promethazine 25 mg tablet Commonly known as: PHENERGAN Take 1 tablet by mouth every 4 hours as needed (for nausea). Estefany Lennon (Underwriting Director) PAGER: [phone] August 24, 2017 2:04 PM PT ED Observed: 08/24/2017 Status: COMPLETED Source: [place] 2:00 PM [facility] REPOSITORY HNO ID: [id number] Author: Humberto Jonas) NICKI Harmon Service: Nursing Author Type: Registered Nurse Type: Patient Education Filed: 08/24/2017 2:01 PM Note Text: POST OP LEARNING RESPONSE INSTRUCTION PROVIDED TO: Patient and family member METHOD OF INSTRUCTION: Written instruction - handouts Verbal instruction PATIENT / FAMILY RESPONSE: Verbalizes understanding of: POST-OPERATIVE INSTRUCTIONS-Correct actions to take to reduce postoperative complications FOLLOW-UP PLAN: Patient instructed to call with any further issues SUPPLEMENTAL MATERIAL: None REFERRAL (RECOMMENDATION): None Electronically Signed By: Humberto Harmon RN In Department: [facility] SURGERY ANES POST Observed: 08/24/2017 Status: COMPLETED Source: [place] 1:24 PM [facility] OTHER [place] REPOSITORY HNO ID: [id number] Author: Chris Erickson Service: Anesthesiology Author Type: Anesthesiologist Type: Anesthesia PostOp Filed: 08/24/2017 1:25 PM Note Text: POST ANESTHESIA EVALUATION NOTE SERVICE DATE: 08/24/2017 SERVICE TIME:1 : 1960 Vitals: 08/24/17 1006 08/24/17 1251 Temp: 36.7 ?C (98.1 ?F) 37.4 ?C (99.3 ?F) 08/24/17 1006 08/24/17 1251 08/24/17 1300 08/24/17 1315 BP: 147/79 154/75 146/70 142/73 08/24/17 1006 08/24/17 1251 08/24/17 1300 08/24/17 1315 Pulse: 94 88 83 80 08/24/17 1006 08/24/17 1251 08/24/17 1300 08/24/17 1315 Resp: 16 14 14 16 08/24/17 1300 08/24/17 1310 08/24/17 1315 08/24/17 1320 SpO2: 98% 97% 97% 96% Validated Vital Signs: Yes POST ANES STATUS: No apparent anesthetic complications. The patient is appropriately hydrated with stable respiratory and cardiovascular status. Patient has safe and adequate airway control. The patient has appropriate pain relief and no significant post operative nausea or vomiting. The patient has achieved baseline mental status. Further assessment by Anesthesia Service: None Other Remarks: SIGNATURE: Chris Erickson MD PATIENT NAME: Evans Newell DATE: August 24, 2017 TIME: 1:25 PM PAGER/CONTACT #: anesthesia SURGICAL PATHOLOGY Observed: 08/24/2017 Status: F Source: [place] 12:45 PM [facility] OTHER C[facility] REPOSITORY Specimen originated from [facility] Specimen #: [id number] Submitting Physician: Haley Avina M.D. FINAL DIAGNOSIS 1. Gallbladder, cholecystectomy (A) - Chronic cholecystitis, cholelithiasis and cholesterolosis. 2. Liver, biopsy (B) - Mild steatosis. See comment. /thalia 08/25/2017 COMMENT The hepatic parenchyma shows mild steatosis (approximately 5-10%) but no features of steatohepatitis. Several portal tracts are present and contain their usual structures. There is some mild nonspecific portal inflammation but no significant lobular inflammation. There is no histologic evidence of cholestasis. A trichrome stain shows no significant fibrosis. A PAS/D stain is negative for alpha-1 antitrypsin globules. An iron stain is negative. Stanton Alvarez MD, Ph.D. (Electronic Signature) SPECIMEN SUBMITTED A: GALLBLADDER B: LIVER, BIOPSY CLINICAL DATA GALLSTONES; PANCREATITIS; FATTY LIVER GROSS DESCRIPTION A. Received in formalin, labeled as gallbladder, consists of an intact gallbladder measuring 9.5 x 3.5 x 1.5 cm. The serosal surface is hernandez, smooth, and glistening. The hepatic bed is roughened and irregular. The cystic duct is not impacted. No lymph nodes are identified. The lumen contains green bile admixed in which are two irregular, green multifaceted gallstones ranging in size from 1.5 to 1.7 cm in greatest dimension. The mucosa is bile stained, green-yellow, displays longitudinal yellow streaks more prominent on the mucosal ridges. The wall thickness measures up to 0.2 cm. Culinary Arts Teacher sections are submitted in cassette A1. TN/adalgisa 08/24/2017 [place] [address] B. Received in formalin on Telfa gauze are three segments of cylindrical tissue 2.0 x 0.3 x 0.1 cm, hernandez-yellow and of a soft and friable consistency. Totally submitted in formalin in one cassette. Gross examination performed at [address] 08/24/2017 7:42:42 PM Date of Report: 08/28/2017 Date of Procedure: 08/24/2017 Date of Receipt: 08/24/2017 Submitted by: Haley Avina M.D. Location: [facility] Diagnostic interpretation performed at [place] [address]. Performed By: #### PATHS #### [place] [address] [phone] BRIEF OP NOT Observed: 08/24/2017 Status: COMPLETED Source: [place] 12:41 PM [facility] REPOSITORY HNO ID: [id number] Author: Haley Avina Service: General Surgery Author Type: Physician Type: Brief Op Note Filed: 08/24/2017 12:46 PM Note Text: BRIEF OPERATIVE / PROCEDURE NOTE LOG ID: [id number] SURGERY/PROCEDURE DATE: 08/24/2017 INCISION/PROCEDURE START TIME: 11:51 AM INCISION CLOSE/PROCEDURE END TIME: 12:41 PM SURGEON(S)/PROCEDURALIST(S) AND AIRLINE LOUNGE RECEPTIONIST(S): Surgeon(s) and Role: * Haley Avina - Primary Nurse Practitioner: Kinsey Barrett Physician Railway Engineer: Deanna Rios (Pa) SURGERY/PROCEDURE(S): Laparoscopic cholecystectomy with cholangiogram and liver biopsy ANESTHESIA: General FINDINGS: see report ESTIMATED BLOOD LOSS: min SPECIMENS: 2 COMPLICATIONS: None PRE-OP/PRE-PROCEDURE DIAGNOSIS: Gallstone pancreatitis POST-OP/POST-PROCEDURE DIAGNOSIS: Gallstones; Pancreatitis; fatty liver # [id number] SIGNATURE: Haley Avina MD PATIENT NAME: Evans Newell DATE: August 24, 2017 TIME: 12:42 PM PAGER/CONTACT #: [id number] CHOLANGIOGRAM INTRAOP Observed: 08/24/2017 Status: C Source: [place] 12:20 PM [facility] REPOSITORY * * *Final Report* * * * * * SEE BOTTOM OF REPORT FOR ADDENDED TEXT * * * DATE OF EXAM: Aug 24 2017 12:20PM MDR [id number] - XR CHOLANGIOGRAM INTRAOP / PROCEDURE REASON: GALLBLADDER DISEASE * * * * Physician Interpretation * * * * * * * * * * * * ORIGINAL REPORT * * * * * * * * INDICATION: GALLBLADDER DISEASE TECHNIQUE: Cine run(s) performed in the operating room by the surgeon. FLUOROSCOPY TIME: 0:10 FINDINGS: There is good opacification of the extrahepatic biliary tree. No persistent filling defects, strictures, or obstruction are seen. Contrast drains freely into the duodenum. IMPRESSION: Negative * * * * * * * * ADDENDUM #1 * * * * * * * * Fluoroscopic Radiation Summary: Plane A, Air Kerma: 3.6 mGy Dose Area Product (DAP): 1465.4 mGy*cmS2 Fluoro time: 0:10 min:sec Airline Lounge Receptionist: ROSLYN Transcribe Date/Time: Nov 08 2017 11:48A Dictated by : EVELINA DE LA VEGA MD This examination was interpreted and the report reviewed and electronically signed by: EVELINA DE LA VEGA MD on Aug 24 2017 12:57PM EST This document has been addended by: EVELINA DE LA VEGA MD on Nov 08 2017 11:48AM EST [id number] HISTORY PHYSICAL Observed: 08/24/2017 Status: COMPLETED Source: [place] 11:03 AM [facility] REPOSITORY HNO ID: [id number] Author: Haley Avina Service: General Surgery Author Type: Physician Type: HANDP Filed: 08/24/2017 11:03 AM Note Text: UPDATED HISTORY AND PHYSICAL EXAMINATION PATIENT NAME: Evans Newell DATE of SERVICE: 08/24/2017 TIME of SERVICE: 11:03 AM PHYSICAL EXAM MUST BE COMPLETED ON ADMISSION The History and Physical (completed in the past 30 days) has been reviewed and the patient has been examined. The contents accurately reflect the patient's condition with the following additions or revisions since the HANDP was completed. Examination indicates no changes This HANDP can be found in the EMR dated 08/25/2017. SIGNATURE: Haley Avina MD DATE: August 24, 2017 TIME: 11:03 AM ANES PREOP Observed: 08/24/2017 Status: COMPLETED Source: [place] 11:02 AM [facility] HNO ID: [id number] Author: Todd Shannon MD Service: Anesthesiology Author Type: Anesthesiologist Type: Anesthesia PreOp Filed: 08/24/2017 11:03 AM Note Text: ANESTHESIOLOGY DAY OF SURGERY NOTE SERVICE DATE: 08/24/2017 SERVICE TIME: 1103 : 1960 Procedure(s) (LRB): LAPAROSCOPIC CHOLECYSTECTOMY WITH GRAMS (N/A) Surgeon(s): Haley Avina Estimated body mass index is 32.62 kg/(m2) as calculated from the following: Height as of this encounter: 193 cm (6' 4). Weight as of this encounter: 121.6 kg (268 lb). Most recent hematocrit and potassium results: Hematocrit 42.2 05/16/2017 Potassium 4.0 05/16/2017 ANES DOS/PREOP NOTE: Vitals: 08/24/17 1006 BP: 147/79 Pulse: 94 Resp: 16 Temp: 36.7 ?C (98.1 ?F) TempSrc: Temporal Artery SpO2: 97% Weight: 121.6 kg (268 lb) Height: 193 cm (6' 4) ACTIVE PROBLEM LIST Loose Body in Knee, Right Knee Benign Essential Hypertension Obesity Tear of Lateral Meniscus of Right Knee Primary Osteoarthritis of Right Knee Pancreatic Pseudocyst Wilver (Generalized Anxiety Disorder) Gallstones Pancreatitis PAST MEDICAL HISTORY Diagnosis Date - History of gallstones - HTN (hypertension) - Pancreatic pseudocyst 05/16/2017 - Pancreatitis - Psychiatric disorder anxiety PAST SURGICAL HISTORY Procedure Laterality Date - ANESTHESIA TOTAL HIP ARTHROPLASTY Left 1996 - EGD 05/2017, 07/2017 - KNEE SCOPE,DIAGNOSTIC Right 02/02/16 Arthroscopy, knee - ORTHOPEDICS SURGERY HX FAMILY HISTORY Problem Relation Age of Onset - Diabetes Father - cardiac [OTHER] Father 82 - liver transplant [OTHER] Mother Hep C after transfusion Social History: Social History Substance Use Topics - Smoking status: Never Smoker - Smokeless tobacco: Never Used - Alcohol use 1.5 oz/week 1 Glasses of Wine (5oz) per week No current facility-administered medications on file prior to encounter. Current Outpatient Prescriptions on File Prior to Encounter: ondansetron (ZOFRAN) 4 mg tablet Take 1 tablet by mouth every 12 hours as needed for nausea. promethazine (PHENERGAN) 25 mg tablet Take 1 tablet by mouth every 4 hours as needed (for nausea). Omeprazole 40 mg capsule Take 1 capsule by mouth once daily. amLODIPine (NORVASC) 10 mg tablet Take 1 tablet by mouth once daily. clonazePAM (KLONOPIN) 1 mg tablet Take 1 tablet by mouth twice daily as needed for Anxiety for up to 30 days. eqrgyh-tblwredq-ljiynch (CREON) 24,000-76,000 -120,000 unit cpDR Take 3 capsules by mouth three times daily with meals. acetaminophen (TYLENOL) 325 mg tablet Take 2 tablets by mouth every 6 hours as needed. ondansetron orally disintegrating (ZOFRAN ODT) 4 mg tab(s) ER Go-Pack Take 1 tablet by mouth every 8 hours as needed. Current Facility-Administered Medications: lactated ringers infusion 5-30 mL/hr INTRAVENOUS CONTINUOUS Enedina (Learning Engineer) Tressa Last Rate: 30 mL/hr at 08/24/17 1000 30 mL/hr at 08/24/17 1000 Allergies: ALLERGIES No Known Allergies DOS EXAM: Adequate NPO status: Yes Anesthetic risks, benefits, alternatives, personnel and consent discussed: Yes Patient agrees to proceed: Yes Previous Anesthesia: No history of adverse event. Airway Assessment: MP 2; Neck ROM: Full ROM without neurologic symptoms; Airway Evaluation: No significant abnormalities Symptoms of Sleep Apnea: Snoring, Hypertension, Age over 50 (57 year old) and Male gender Dentition: Teeth intact Additional Physical Exam: Lungs: Patient health status unchanged since recent history and physical. See history and physical for exam findings. Cardiac: Patient health status unchanged since recent history and physical. See history and physical for exam findings. Blood Products: Not anticipated for this procedure. Anesthetic Plan: General, Standard ASA Monitors Pain Management Plan: Parenteral or Oral ASA Class: 2 Chronic Beta Sofya medication administered within 24 hours: N/A I have interviewed and examined the patient. I have reviewed the medical record and/or the pre-anesthesia evaluation, pertinent labs, and test results. Significant changes in the patient's condition since the History and Physical, not otherwise documented in primary service progress notes: No This contains updated information obtained within 48 hours of Surgery/Procedure. SIGNATURE: Todd Shannon MD PATIENT NAME: Evans Newell DATE: August 24, 2017 TIME: 11:03 AM CSN: [id number] PT ED Observed: 08/24/2017 Status: COMPLETED Source: [place] 9:57 AM [facility] REPOSITORY HNO ID: [id number] Author: Ivanna Richardson RN Service: Nursing Author Type: Registered Nurse Type: Patient Education Filed: 08/24/2017 9:57 AM Note Text: PRE OP LEARNING ASSESSMENT PROCEDURE/SURGERY: SURGERY: Lap cholecyctectomy READINESS TO LEARN COGNITIVE ABILITY: Alert and oriented MOTIVATION TO LEARN: Eager FAMILY SUPPORT: High - Very involved in pt care PATIENT LEARNS BEST BY: Individual Instruction FACTORS AFFECTING LEARNING: None PHYSICAL LIMITATIONS AFFECTING LEARNING: None Electronically Signed By: Ivanna Richardson RN In Department: [facility] SURGERY NURSING PROG Observed: 08/24/2017 Status: COMPLETED Source: [place] 9:47 AM [facility] REPOSITORY HNO ID: [id number] Author: Ivanna (Rn) Addis, RN Service: Nursing Author Type: Registered Nurse Type: Nursing Progress Note Filed: 08/24/2017 10:30 AM Note Text: 0947 pt to ASCU. AANDOx3. MARLOW TCx4. Denies pain. PIV started without difficulty. VSS no s/sx of distress. 1020 pt ready for OR/ @ BS. OPERATIVE NO Observed: 08/24/2017 Status: COMPLETED Source: [place] 12:00 AM [facility] REPOSITORY HNO ID: [id number] Author: Haley Avina Service: General Surgery Author Type: Physician Type: Operative Report Filed: 08/25/2017 7:11 AM Note Text: [facility]- Operative Report EVANS NEWELL : 1960 AGE: 57 SEX: M ACCTNUM: [id number] [facility]: [facility] LOCATION: [facility] ATTENDING PHYSICIAN: Haley Avina M.D. DATE OF PROCEDURE: 08/24/2017 SURGEON: Haley Avina M.D. AIRLINE LOUNGE RECEPTIONIST: Deanna Rios(arely); and Bebeto Flor ANESTHESIA: General anesthesia. PREOPERATIVE DIAGNOSIS(ES): Gallstone pancreatitis. POSTOPERATIVE DIAGNOSIS(ES): Gallstone pancreatitis and fatty liver. NAME OF OPERATION: Laparoscopic cholecystectomy with intraoperative cholangiogram using fluoroscopy and liver biopsy. INDICATIONS: The patient is a 57-year-old gentleman, who presents with a history of gallstone pancreatitis. He developed a pseudocyst requiring internal drainage. He now presents for laparoscopic cholecystectomy as gallstones were identified. Risks including bleeding, infection, common bile duct injury, and bile leak were explained, and he would like to proceed. ESTIMATED BLOOD LOSS: Minimal blood loss. PROCEDURE START TIME: 11:51 a.m. PROCEDURE END TIME: 12:41 p.m. PROCEDURE: The patient was identified and brought to the operating room, placed in supine position. After general anesthesia was obtained, the abdomen was prepped and draped in sterile fashion. The abdominal cavity was entered in the right mid abdomen using the 5-mm trocar with an Optiview technique. The abdomen was then insufflated with CO2 gas to a pressure of 15 mmHg. Upon inspection, there was no evidence of injury upon entry. There were no adhesions. A 10-mm trocar was placed above the umbilicus, 5-mm trocars were placed in the epigastric area and the right upper quadrant under direct visualization without complication. The liver appeared somewhat fatty. An 18-gauge core liver biopsy was then performed through an incision just below the right rib cage. Two core biopsies were obtained. The liver was cauterized for hemostasis. These were sent to Pathology. The gallbladder was then identified and retracted upwards. The gallbladder was noted to be chronically inflamed. The base was retracted laterally. The cystic duct was then identified and from surrounding fatty tissue using cautery, the [place], and the hook. Once the duct was isolated and noted to be directly into the gallbladder, a clip was placed proximally. The duct was then partially divided with scissors. The duct did appear to be slightly dilated. The cholangiocatheter was carefully inserted in the distal cystic duct. The duct was aspirated of air and flushed with saline without evidence for leak. The cholangiogram was then performed with Omnipaque and fluoroscopy. There was immediate filling of the intra and extrahepatic biliary system and duodenum. There were no filling defects seen. There was no back fill of the pancreatic duct. Three clips were then placed on the distal cystic duct. The duct was divided with scissors. The cystic artery was then identified, clipped, and divided. The gallbladder was then removed from the liver bed using the hook Bovie. There was some spillage of bile, but no stones. This is inherent to the procedure, will not cause long-term consequences. The gallbladder was then placed into an EndoCatch bag, removed through the umbilical port site. Liver bed was again inspected. There was no evidence for bleeding or bile leaking. The right upper quadrant was then irrigated with a liter of normal saline. The pelvis was then examined. He had an indirect right inguinal hernia present. It was difficult to identify the left inguinal area. The 10-mm trocar fascia was closed using #1 Maxon with a Real Estate Loan Officer guide technique. Two sutures were placed. The port sites were injected with 0.25% Marcaine without evidence for bleeding. The skin edges were approximated with 3-0 Vicryl, 5-0 Vicryl, and Exofin. All counts were correct at the end of the case. The patient tolerated the procedure well. He was taken to recovery room in good condition. Haley Avina M.D. General Surgery KED:[id number] /[id number] NURSING PROG Observed: 08/23/2017 Status: COMPLETED Source: [place] 7:32 AM CLINIC OTHER CAMP[facility] REPOSITORY HNO ID: [id number] Author: Trinidad Pratt (Rn) NICKI Nolasco Service: (none) Author Type: Registered Nurse Type: Nursing Progress Note Filed: 08/23/2017 10:14 AM Note Text: PACC Nurse Progress Note History AND Physical: PACC Visit Date: N/A Original HANDP Date: 08.15.17 Dr. Haley Avina in [facility] ED visit Date: N/A Outside HANDP Scanned Date: N/A Labs Within Last 6 Months: CBC: Date 05/16/17 BMP/CMP: Date 05/16/17 PT: Date 05/16/17 OTHER TEST: lipase, Date 05/16/17 Imaging Within Last 12 Months: CT Scan US Cardiac Testing: EKG in last 12 Months: Yes: Date: 03/05/17, Comment: N/A Risk Assessment: N/A Anesthesia Review: N/A Narrative: BMI 33-pre-op instructions reviewed w/pt by phone. Pre-op Considerations: N/A Chart Check: completePATIENT PREOPERATIVE INSTRUCTIONS No ref. provider found has scheduled you for your procedure at this surgery center: [facility]: [phone] -- [address] [facility] [id number]. Please read below carefully for your personalized instructions. Blood Thinning Medications: - Stop NSAIDS (Ibuprofen, Advil, Aleve, Motrin, Celebrex, Mobic, etc.) 7 days before surgery, as directed by your surgeon. - Do NOT stop aspirin or other anticoagulants without consulting with your car unloader helper or prescribing physician. - Stop Vitamin E, ALL multi-vitamins, herbals and dietary supplements 7 days before surgery. Dietary Restrictions: - No solid food after midnight. - You may have 12 ounces of clear liquids (water, clear juices such as apple juice or gatorade, carbonated beverages, clear tea, black coffee, jello) until 2 hours before scheduled arrival at facility. Pain Medications: Medications: Approved medications to take the morning of surgery with a sip of water: None-takes meds at night If you start any new medications after today's visit, please contact the surgery center above. Important Reminders: - Candy, mints, gum and tobacco products are NOT permitted the morning of surgery. - Hearing aids, dentures and glasses may be worn the morning of surgery. - NO jewelry, body piercings, makeup, nail sudanese, hairpins or contacts are to be worn the day of surgery. If you develop symptoms such as a fever, cold, or flu, or have other changes to your health within TWO DAYS of scheduled surgery or the morning of surgery, please contact the surgery center above. Personal Belongings: - Leave ALL valuables and money at home or with family members. For Outpatient Procedures: - YOU MUST HAVE A RESPONSIBLE SENIOR IOS SOFTWARE ENGINEER TAKE YOU HOME. A REAL ESTATE TEACHER OR ORACLE IAM CONSULTANT CANNOT BE MADE A RESPONSIBLE SENIOR IOS SOFTWARE ENGINEER. - We recommend that a responsible person stays with you overnight to take care of you. - You cannot stay in a hotel alone after outpatient surgery. You will not be permitted to have your surgery, if you do not have someone to take care of you. Arrival Time for Surgery: - The Surgery Center or hospital where you are having surgery will call the afternoon before surgery (or Monday for Monday surgery) with a scheduled arrival time. - If you have not heard by 4 pm, please contact the surgery center above. Please be aware that emergency situations arise, which may delay or change your surgical time. If this happens, we will notify you as soon as possible and regret any inconvenience. Trinidad Nolasco RN August 23, 2017 7:32 AM PROGRESS Observed: 08/16/2017 Status: COMPLETED Source: [place] 3:15 PM [facility] [place] REPOSITORY [facility] ID: [id number] Author: Haley Avina Service: (none) Author Type: Physician Type: Progress Notes Filed: 08/16/2017 3:21 PM Note Text: New patient HANDP PATIENT NAME: Evans Newell Assessment ASSESSMENT/PLAN: (K85.10) Gallstone pancreatitis (primary encounter diagnosis) Evans presents today to discuss laparoscopic cholecystectomy. He had recently been treated for severe pancreatitis complicated by pseudocyst. This has now resolved. He continues to have episodes of biliary colic. We discussed proceeding with laparoscopic cholecystectomy.Risks, benefits and alternatives of proceeding with laparoscopic cholecystectomy were discussed with risks to include but not limited to hemorrhage, infection, possibility of common bile duct injury, possible intra-abdominal organ injury ,possible conversion to open. Patient expressed understanding and wishes to proceed. Office Visit on 08/15/17 -traMADol (ULTRAM) 50 mg tablet *Discontinued* -traMADol (ULTRAM) 50 mg tablet -promethazine (PHENERGAN) 25 mg tablet SUBJECTIVE CHIEF COMPLAINT: Patient presents with: Consult: Gallbladder INTERVAL HISTORY OF PRESENT ILLNESS: Evans is a 57-year-old gentleman who presented in February with episodes of biliary colic. He would have cramping abdominal pain in the right upper quadrant. Ultrasound at that time showed gallstones. In April he developed an epigastric mass and presented to the ER. At that time he was found to have a large pancreatic pseudocyst. He was treated at [facility] with a endoscopic cystogastrostomy stent. The stent was removed in July. Follow-up CT scan showed resolution of the pseudocysts. He continues to have episodes of right upper quadrant pain that radiated towards his back. This is associated with nausea. He describes the pain as cramping. He has had diminished intake. The pain is always worse with eating. He has lost almost 50 pounds. He presents today to discuss laparoscopic cholecystectomy. HISTORIES: PAST MEDICAL HISTORY Diagnosis Date - History of gallstones - HTN (hypertension) - Pancreatic pseudocyst 05/16/2017 - Pancreatitis - Psychiatric disorder anxiety PAST SURGICAL HISTORY Procedure Laterality Date - ANESTHESIA TOTAL HIP ARTHROPLASTY Left 1996 - EGD 05/2017, 07/2017 - KNEE SCOPE,DIAGNOSTIC Right 02/02/16 Arthroscopy, knee - ORTHOPEDICS SURGERY HX ALLERGIES: Review of patient's allergies indicates no known allergies. MEDICATIONS: Current Outpatient Prescriptions: traMADol (ULTRAM) 50 mg tablet Take 1 tablet by mouth every 6 hours as needed for up to 3 days. Omeprazole 40 mg capsule Take 1 capsule by mouth once daily. amLODIPine (NORVASC) 10 mg tablet Take 1 tablet by mouth once daily. clonazePAM (KLONOPIN) 1 mg tablet Take 1 tablet by mouth twice daily as needed for Anxiety for up to 30 days. clainr-pypuxaul-pjvablh (CREON) 24,000-76,000 -120,000 unit cpDR Take 3 capsules by mouth three times daily with meals. ondansetron orally disintegrating (ZOFRAN ODT) 4 mg tab(s) ER Go-Pack Take 1 tablet by mouth every 8 hours as needed. promethazine (PHENERGAN) 25 mg tablet Take 1 tablet by mouth every 4 hours as needed (for nausea). acetaminophen (TYLENOL) 325 mg tablet Take 2 tablets by mouth every 6 hours as needed. Valsartan-Hydrochlorothiazide 320-25 mg per tablet Take 1 tablet by mouth once daily. No current facility-administered medications for this visit. FAMILY HISTORY Problem Relation Age of Onset - Diabetes Father - cardiac [OTHER] Father 82 - liver transplant [OTHER] Mother Hep C after transfusion Social History Marital status: Spouse name: Years of education: Number of children: Social History Main Topics Smoking status: Never Smoker Smokeless status: Never Used Alcohol use: Yes 1.5 oz/week 1 Glasses of Wine (5oz) per week Drug use: No Reviewed and agreed with Review of Systems completed by the clinical staff. OBJECTIVE PHYSICAL EXAM: BP 165/83 Pulse 90 Ht 6' 4 (1.93m) Wt 268 lb (121.6kg) BMI 32.64 kg/(m2). General: Well developed, well-nourished, in no distress HEENT: Normocephalic, atraumatic. Extraocular movements intact. Sclera are nonicteric. Heart: Regular rate and rhythm, no murmur Lungs: Clear to auscultation, without wheezes Abdomen: Soft, mild tenderness epigastric right upper quadrant without guarding positive bowel sounds, no masses, no hernia Rectal: Not evaluated Extremities: No edema Neurologic: Alert, oriented, and appropriate. DATA: Diagnostic tests reviewed for today's visit: CT scan from July was reviewed and compared with the CT from April. There has been significant improvement in the size of the pseudocyst. Ultrasound from February shows gallstones. Haley Avina MD PROGRESS Observed: 08/15/2017 Status: COMPLETED Source: [place] 3:24 PM [facility] REPOSITORY O ID: [id number] Author: Christie Huston LPN Service: (none) Author Type: (none) Type: Progress Notes Filed: 08/16/2017 3:21 PM Note Text: GENERAL:No weight loss, No malaise, No fevers HEENT:Negative for frequent or significant headaches, No changes in hearing or vision, no nose bleeds or other nasal problems CARDIOVASCULAR: Negative for chest pain, Negative for leg swelling, Negative for palpitaions RESPIRATORY:Negative for cough, Negative for wheezing , Negative for shortness of breath GASTROINTESTINAL: Negative for blood in stools, Negative for black stools, Positive for:, Loss of appetitie, Change in bowel movements, Nausea or vomiting and Abdominal pain GENITOURINARY: No history of dysuria, frequency or incontinence. ENDOCRINE:None MUSCULOSKELETAL: Negative for swelling, Negative for muscle pain, Positive for:, joint pain, back pain NEUROLOGIC:Negative for focal numbness Negative for weakness Negative for headache Negative for syncope Negative for dizziness HEMATOLOGIC/LYMPHATIC/IMMUNOLOGIC:Negative for prolonged bleeding, bruising easily or swollen nodes. CNOV Observed: 08/15/2017 Status: COMPLETED Source: [place] 3:15 PM [facility] REPOSITORY Office Visit (BINU) EVANS NEWELL ([id number]) 1960 M Date Time Provider Department 08/15/17 3:15 PM HALEY AVINA During your visit today, we recorded the following information about you: Pulse Blood pressure Weight Height 90/minute 165/83 121.6 kg 1.93 m Christie Huston MONUMENT SETTER 08/16/2017 3:21 PM Signed GENERAL:No weight loss, No malaise, No fevers HEENT:Negative for frequent or significant headaches, No changes in hearing or vision, no nose bleeds or other nasal problemsANDquot; CARDIOVASCULAR: Negative for chest pain, Negative for leg swelling, Negative for palpitaions RESPIRATORY:Negative for cough, Negative for wheezing , Negative for shortness of breath GASTROINTESTINAL: Negative for blood in stools, Negative for black stools, Positive for:, Loss of appetitie, Change in bowel movements, Nausea or vomiting and Abdominal pain GENITOURINARY: No history of dysuria, frequency or incontinence. ENDOCRINE:None MUSCULOSKELETAL: Negative for swelling, Negative for muscle pain, Positive for:, joint pain, back pain NEUROLOGIC:Negative for focal numbness Negative for weakness Negative for headache Negative for syncope Negative for dizziness HEMATOLOGIC/LYMPHATIC/IMMUNOLOGIC:Negative for prolonged bleeding, bruising easily or swollen nodes. Haley Avina MD 08/16/2017 3:21 PM Signed New patient HANDamp;P PATIENT NAME: Evans Newell Assessment ASSESSMENT/PLAN: (K85.10) Gallstone pancreatitis (primary encounter diagnosis) Evans presents today to discuss laparoscopic cholecystectomy. He had recently been treated for severe pancreatitis complicated by pseudocyst. This has now resolved. He continues to have episodes of biliary colic. We discussed proceeding with laparoscopic cholecystectomy.Risks, benefits and alternatives of proceeding with laparoscopic cholecystectomy were discussed with risks to include but not limited to hemorrhage, infection, possibility of common bile duct injury, possible intra-abdominal organ injury ,possible conversion to open. Patient expressed understanding and wishes to proceed. Office Visit on 08/15/17 -traMADol (ULTRAM) 50 mg tablet *Discontinued* -traMADol (ULTRAM) 50 mg tablet -promethazine (PHENERGAN) 25 mg tablet SUBJECTIVE CHIEF COMPLAINT: Patient presents with: Consult: Gallbladder INTERVAL HISTORY OF PRESENT ILLNESS: Evans is a 57-year-old gentleman who presented in February with episodes of biliary colic. He would have cramping abdominal pain in the right upper quadrant. Ultrasound at that time showed gallstones. In April he developed an epigastric mass and presented to the ER. At that time he was found to have a large pancreatic pseudocyst. He was treated at [facility] with a endoscopic cystogastrostomy stent. The stent was removed in July. Follow-up CT scan showed resolution of the pseudocysts. He continues to have episodes of right upper quadrant pain that radiated towards his back. This is associated with nausea. He describes the pain as cramping. He has had diminished intake. The pain is always worse with eating. He has lost almost 50 pounds. He presents today to discuss laparoscopic cholecystectomy. HISTORIES: PAST MEDICAL HISTORY Diagnosis Date - History of gallstones - HTN (hypertension) - Pancreatic pseudocyst 05/16/2017 - Pancreatitis - Psychiatric disorder anxiety PAST SURGICAL HISTORY Procedure Laterality Date - ANESTHESIA TOTAL HIP ARTHROPLASTY Left 1996 - EGD 05/2017, 07/2017 - KNEE SCOPE,DIAGNOSTIC Right 02/02/16 Arthroscopy, knee - ORTHOPEDICS SURGERY HX ALLERGIES: Review of patient's allergies indicates no known allergies. MEDICATIONS: Current Outpatient Prescriptions: traMADol (ULTRAM) 50 mg tablet Take 1 tablet by mouth every 6 hours as needed for up to 3 days. Omeprazole 40 mg capsule Take 1 capsule by mouth once daily. amLODIPine (NORVASC) 10 mg tablet Take 1 tablet by mouth once daily. clonazePAM (KLONOPIN) 1 mg tablet Take 1 tablet by mouth twice daily as needed for Anxiety for up to 30 days. ueqyzm-ngkoipyk-azuwhzn (CREON) 24,000-76,000 -120,000 unit cpDR Take 3 capsules by mouth three times daily with meals. ondansetron orally disintegrating (ZOFRAN ODT) 4 mg tab(s) ER Go-Pack Take 1 tablet by mouth every 8 hours as needed. promethazine (PHENERGAN) 25 mg tablet Take 1 tablet by mouth every 4 hours as needed (for nausea). acetaminophen (TYLENOL) 325 mg tablet Take 2 tablets by mouth every 6 hours as needed. Valsartan-Hydrochlorothiazide 320-25 mg per tablet Take 1 tablet by mouth once daily. No current facility-administered medications for this visit. FAMILY HISTORY Problem Relation Age of Onset - Diabetes Father - cardiac [OTHER] Father 82 - liver transplant [OTHER] Mother Hep C after transfusion Social History Marital status: Spouse name: Years of education: Number of children: Social History Main Topics Smoking status: Never Smoker Smokeless status: Never Used Alcohol use: Yes 1.5 oz/week 1 Glasses of Wine (5oz) per week Drug use: No Reviewed and agreed with Review of Systems completed by the clinical staff. OBJECTIVE PHYSICAL EXAM: BP 165/83 Pulse 90 Ht 6' 4ANDquot; (1.93m) Wt 268 lb (121.6kg) BMI 32.64 kg/(m2). General: Well developed, well-nourished, in no distress HEENT: Normocephalic, atraumatic. Extraocular movements intact. Sclera are nonicteric. Heart: Regular rate and rhythm, no murmur Lungs: Clear to auscultation, without wheezes Abdomen: Soft, mild tenderness epigastric right upper quadrant without guarding positive bowel sounds, no masses, no hernia Rectal: Not evaluated Extremities: No edema Neurologic: Alert, oriented, and appropriate. DATA: Diagnostic tests reviewed for today's visit: CT scan from July was reviewed and compared with the CT from April. There has been significant improvement in the size of the pseudocyst. Ultrasound from February shows gallstones. Haley Avina MD Referring Provider: YOHANA DOLAN [[id number]] Allergies As of Date: 08/15/2017 (No Known Allergies) Date Reviewed: 08/15/2017 Reviewed by: Christie Huston LPN - Fully Assessed Reason for Visit: Consult [173] Cmt: Gallbladder Primary Visit Diagnosis:Gallstone pancreatitis [K85.10] Order(s):traMADol (ULTRAM) 50 mg tabletTake 1 tablet by mouth every 6 hours as needed for up to 3 days.Disp: 12 tabletRfl: 0 promethazine (PHENERGAN) 25 mg tabletTake 1 tablet by mouth every 4 hours as needed (for nausea).Disp: 20 tabletRfl: 0 Prescriptions as of 08/15/2017 Sig: TRAMADOL 50 MG TABLET Take 1 tablet by mouth every * OMEPRAZOLE 40 MG CAPSULE,MAREILENA* Take 1 capsule by mouth once * AMLODIPINE 10 MG TABLET Take 1 tablet by mouth once d* CLONAZEPAM 1 MG TABLET Take 1 tablet by mouth twice * CWZBTC-BHNTKJUJ-RDDXRLN 24,00* Take 3 capsules by mouth thre* ONDANSETRON 4 MG TAB, RAPID D* Take 1 tablet by mouth every * PROMETHAZINE 25 MG TABLET Take 1 tablet by mouth every * ACETAMINOPHEN 325 MG TABLET Take 2 tablets by mouth every* VALSARTAN 320 MG-HYDROCHLOROT* Take 1 tablet by mouth once d* Medication notes this encounter ACETAMINOPHEN 325 MG TABLET >> Crhistie Huston LPN 08/15/2017 3:24 PM >> CHRISTIE HUSTON LPN MonAug 15, 2017 3:24 PM Not taking VALSARTAN 320 MG-HYDROCHLOROTHIAZIDE 25 MG TABLET >> Christie Huston LPN 08/15/2017 3:24 PM >> CHRISTIE HUSTON LPN MonAug 15, 2017 3:24 PM Not taking Problem List As Of Date 08/15/2017 Noted Resolved Loose body in knee, right knee [M23.41] INVALID FOR* Benign essential hypertension [I10] INVALID FOR* Obesity [E66.9] INVALID FOR* Tear of lateral meniscus of right knee [S83.281*INVALID FOR* Primary osteoarthritis of right knee [M17.11] INVALID FOR* Pancreatic pseudocyst [K86.3] INVALID FOR* WILVER (generalized anxiety disorder) [F41.1] INVALID FOR* Gallstones [K80.20] INVALID FOR* More... Pancreatitis [K85.90] INVALID FOR* More... Prescriptions ordered this encounter Disp Refills Start End TRAMADOL 50 MG TABLET 12 t* 0 08/15/2017 08/18/2017 Class: Print RX Route: ORAL Sig: Take 1 tablet by mouth every 6 hours as needed for up to 3 days. PROMETHAZINE 25 MG TABLET 20 t* 0 08/15/2017 Class: Print RX Route: ORAL Sig: Take 1 tablet by mouth every 4 hours as needed (for nausea). Medications Discontinued During This Encounter traMADol (ULTRAM) 50 mg tablet 08/15/2017 Class: Historical Med Route: ORAL Sig: Take 50 mg by mouth every 6 hours as needed. Disc: Reason for discontinue is not on file. Follow-up and Disposition History Recorded Encounter Status:Closed by HALEY AVINA MD on 08/16/17 HOSP Observed: 08/15/2017 Status: COMPLETED Source: [place] 12:00 AM CLINIC OTHER CAMPUS REPOSITORY Patient:Evans Newell MRN: <[id number]> Height:6' 4(1.93 m) Weight:268 lb (121.564 kg) Outpatient Medications as of 08/24/17: ondansetron (ZOFRAN) 4 mg tablet promethazine (PHENERGAN) 25 mg tablet Omeprazole 40 mg capsule amLODIPine (NORVASC) 10 mg tablet clonazePAM (KLONOPIN) 1 mg tablet rczznv-jfqzvsyc-rnkrjjp (CREON) 24,000-76,000 -120,000 unit cpDR acetaminophen (TYLENOL) 325 mg tablet ondansetron orally disintegrating (ZOFRAN ODT) 4 mg tab(s) ER Go-Pack Admission/Clinic Administered Medications as of 08/24/17: lactated ringers infusion Problem List: Loose body in knee, right knee [M23.41] Benign essential hypertension [I10] Obesity [E66.9] Tear of lateral meniscus of right knee [S83.281A] Primary osteoarthritis of right knee [M17.11] Pancreatic pseudocyst [K86.3] WILVER (generalized anxiety disorder) [F41.1] Gallstones [K80.20] Pancreatitis [K85.90] Allergies: No Known Allergies Date Verified:08/24/17 Lab Values No results within the last 30 days for the following basenames: K,HCT Progress Notes ([facility]): Fela Holm 08/17/2017 2:39 PM Signed [facility] called to follow up on Rx request for Zofran sent on 08/14/17. Pharmacy wants to know if You'll honor the request or if the patient needs to come in for a visit? [facility]: Progress Notes ([facility]): Christie Huston LPN 08/16/2017 3:21 PM Signed GENERAL:No weight loss, No malaise, No fevers HEENT:Negative for frequent or significant headaches, No changes in hearing or vision, no nose bleeds or other nasal problems CARDIOVASCULAR: Negative for chest pain, Negative for leg swelling, Negative for palpitaions RESPIRATORY:Negative for cough, Negative for wheezing , Negative for shortness of breath GASTROINTESTINAL: Negative for blood in stools, Negative for black stools, Positive for:, Loss of appetitie, Change in bowel movements, Nausea or vomiting and Abdominal pain GENITOURINARY: No history of dysuria, frequency or incontinence. ENDOCRINE:None MUSCULOSKELETAL: Negative for swelling, Negative for muscle pain, Positive for:, joint pain, back pain NEUROLOGIC:Negative for focal numbness Negative for weakness Negative for headache Negative for syncope Negative for dizziness HEMATOLOGIC/LYMPHATIC/IMMUNOLOGIC:Negative for prolonged bleeding, bruising easily or swollen nodes. Haley Avina MD 08/16/2017 3:21 PM Signed New patient HANDP PATIENT NAME: Evans Newell Assessment ASSESSMENT/PLAN: (K85.10) Gallstone pancreatitis (primary encounter diagnosis) Evans presents today to discuss laparoscopic cholecystectomy. He had recently been treated for severe pancreatitis complicated by pseudocyst. This has now resolved. He continues to have episodes of biliary colic. We discussed proceeding with laparoscopic cholecystectomy.Risks, benefits and alternatives of proceeding with laparoscopic cholecystectomy were discussed with risks to include but not limited to hemorrhage, infection, possibility of common bile duct injury, possible intra-abdominal organ injury ,possible conversion to open. Patient expressed understanding and wishes to proceed. Office Visit on 08/15/17 -traMADol (ULTRAM) 50 mg tablet *Discontinued* -traMADol (ULTRAM) 50 mg tablet -promethazine (PHENERGAN) 25 mg tablet SUBJECTIVE CHIEF COMPLAINT: Patient presents with: Consult: Gallbladder INTERVAL HISTORY OF PRESENT ILLNESS: Evans is a 57-year-old gentleman who presented in February with episodes of biliary colic. He would have cramping abdominal pain in the right upper quadrant. Ultrasound at that time showed gallstones. In April he developed an epigastric mass and presented to the ER. At that time he was found to have a large pancreatic pseudocyst. He was treated at [facility] with a endoscopic cystogastrostomy stent. The stent was removed in July. Follow-up CT scan showed resolution of the pseudocysts. He continues to have episodes of right upper quadrant pain that radiated towards his back. This is associated with nausea. He describes the pain as cramping. He has had diminished intake. The pain is always worse with eating. He has lost almost 50 pounds. He presents today to discuss laparoscopic cholecystectomy. HISTORIES: PAST MEDICAL HISTORY Diagnosis Date - History of gallstones - HTN (hypertension) - Pancreatic pseudocyst 05/16/2017 - Pancreatitis - Psychiatric disorder anxiety PAST SURGICAL HISTORY Procedure Laterality Date - ANESTHESIA TOTAL HIP ARTHROPLASTY Left 1996 - EGD 05/2017, 07/2017 - KNEE SCOPE,DIAGNOSTIC Right 02/02/16 Arthroscopy, knee - ORTHOPEDICS SURGERY HX ALLERGIES: Review of patient's allergies indicates no known allergies. MEDICATIONS: Current Outpatient Prescriptions: traMADol (ULTRAM) 50 mg tablet Take 1 tablet by mouth every 6 hours as needed for up to 3 days. Omeprazole 40 mg capsule Take 1 capsule by mouth once daily. amLODIPine (NORVASC) 10 mg tablet Take 1 tablet by mouth once daily. clonazePAM (KLONOPIN) 1 mg tablet Take 1 tablet by mouth twice daily as needed for Anxiety for up to 30 days. kszniq-febcetei-duekwbg (CREON) 24,000-76,000 -120,000 unit cpDR Take 3 capsules by mouth three times daily with meals. ondansetron orally disintegrating (ZOFRAN ODT) 4 mg tab(s) ER Go-Pack Take 1 tablet by mouth every 8 hours as needed. promethazine (PHENERGAN) 25 mg tablet Take 1 tablet by mouth every 4 hours as needed (for nausea). acetaminophen (TYLENOL) 325 mg tablet Take 2 tablets by mouth every 6 hours as needed. Valsartan-Hydrochlorothiazide 320-25 mg per tablet Take 1 tablet by mouth once daily. No current facility-administered medications for this visit. FAMILY HISTORY Problem Relation Age of Onset - Diabetes Father - cardiac [OTHER] Father 82 - liver transplant [OTHER] Mother Hep C after transfusion Social History Marital status: Spouse name: Years of education: Number of children: Social History Main Topics Smoking status: Never Smoker Smokeless status: Never Used Alcohol use: Yes 1.5 oz/week 1 Glasses of Wine (5oz) per week Drug use: No Reviewed and agreed with Review of Systems completed by the clinical staff. OBJECTIVE PHYSICAL EXAM: BP 165/83 Pulse 90 Ht 6' 4 (1.93m) Wt 268 lb (121.6kg) BMI 32.64 kg/(m2). General: Well developed, well-nourished, in no distress HEENT: Normocephalic, atraumatic. Extraocular movements intact. Sclera are nonicteric. Heart: Regular rate and rhythm, no murmur Lungs: Clear to auscultation, without wheezes Abdomen: Soft, mild tenderness epigastric right upper quadrant without guarding positive bowel sounds, no masses, no hernia Rectal: Not evaluated Extremities: No edema Neurologic: Alert, oriented, and appropriate. DATA: Diagnostic tests reviewed for today's visit: CT scan from July was reviewed and compared with the CT from April. There has been significant improvement in the size of the pseudocyst. Ultrasound from February shows gallstones. Haley Avina MD ANES POST Observed: 07/19/2017 Status: COMPLETED Source: [place] 3:17 PM [facility] REPOSITORY HNO ID: [id number] Author: Jay Nance Service: Anesthesiology Author Type: Anesthesiologist Type: Anesthesia PostOp Filed: 07/19/2017 3:18 PM Note Text: POST ANESTHESIA EVALUATION NOTE SERVICE DATE: 07/19/2017 SERVICE TIME: 1520 : 1960 Vitals: Stable. Reviewed. There were no vitals filed for this visit. There were no vitals filed for this visit. There were no vitals filed for this visit. There were no vitals filed for this visit. There were no vitals filed for this visit. Validated Vital Signs: Yes POST ANES STATUS: No apparent anesthetic complications. The patient is appropriately hydrated with stable respiratory and cardiovascular status. Patient has safe and adequate airway control. The patient has appropriate pain relief and no significant post operative nausea or vomiting. The patient has achieved baseline mental status. Further assessment by Anesthesia Service: None Other Remarks: awake, alert, fluent, comfortable. SIGNATURE: Jay Nance MD PATIENT NAME: Evans Newell DATE: July 19, 2017 TIME: 3:17 PM PAGER/CONTACT #: [phone] [facility] Observed: 07/17/2017 Status: COMPLETED Source: [place] 12:00 AM [facility] [place] REPOSITORY Patient:Evans Newell MRN: <[id number]> Height:6' 4(1.93 m) Weight:No patient weight recorded within the last 30 days. Outpatient Medications as of 07/19/17: Omeprazole 40 mg capsule amLODIPine (NORVASC) 5 mg tablet clonazePAM (KLONOPIN) 1 mg tablet joezsi-ueztdlcy-thhujxj (CREON) 24,000-76,000 -120,000 unit cpDR acetaminophen (TYLENOL) 325 mg tablet ondansetron orally disintegrating (ZOFRAN ODT) 4 mg tab(s) ER Go-Pack Valsartan-Hydrochlorothiazide 320-25 mg per tablet Admission/Clinic Administered Medications as of 07/19/17: Patient has no admission medications. Problem List: Loose body in knee, right knee [M23.41] Benign essential hypertension [I10] Obesity [E66.9] Tear of lateral meniscus of right knee [S83.281A] Primary osteoarthritis of right knee [M17.11] Pancreatic pseudocyst [K86.3] WILVER (generalized anxiety disorder) [F41.1] Allergies: No Known Allergies Date Verified:07/19/17 Lab Values No results within the last 30 days for the following basenames: K,HCT Progress Notes ([facility]): Cole Beal MA 07/19/2017 10:33 AM Signed Pt has refills remaining verified with pharmacy Progress Notes ([facility]): Sofi Ruelas RN 07/11/2017 2:51 PM Signed Message from [employer]: Original authorizing provider: Yohana PopticMD Evans would like a refill of the following medications: Omeprazole 40 mg capsule [Yohana Dolan MD] Preferred pharmacy: [facility] [place] [address] - [address] [facility] [phone] 25 Comment: Sofi Ruelas RN 07/11/2017 2:51 PM Signed Patient has been identified by name and date of : Yes Pending Prescriptions Disp Refills OMEPRAZOLE 40 MG CAPSULE,DELAYED RELEASE 90 capsule 1 Sig: Take 1 capsule by mouth once daily. MARQUISE: No RX INSTRUCTIONS: Patient aware RX will be sent to pharmacy. No need to notify patient. Sofi Ruelas RN CT PANCREAS W IVCON Observed: 07/08/2017 Status: F Source: [place] 10:30 AM [facility] OTHER CAMPUS REPOSITORY * * *Final Report* * * DATE OF EXAM: Jul 08 2017 10:30AM [facility] 0552 - CT PANCREAS W IVCON / PROCEDURE REASON: K85.11-Biliary acute pancreatitis with uninfected necrosis * * * * Physician Interpretation * * * * CT ABDOMEN HISTORY: Pancreatitis. Pancreatic necrosis follow-up Technique: CT imaging was performed through the abdomen following the IV administration of 150 ml of Omnipaque 300. Oral contrast was administered. (500 cc of Water) 3 mm images were reformatted through the pancreas during arterial and venous phase enhancement. CT Dose-Length Product (DLP): 382 mGy*cm CT Dose Reduction Employed: Yes Findings: Comparison is to the CT scan of 05/16/2017 Pancreas peripancreatic tissues: Low-attenuation in pancreatic body extending for a length of at least 3.8 cm suggesting pancreatic necrosis. Pancreas otherwise unremarkable. No calcification or ductal dilatation. Superior aspect of this low attenuation center pancreas contiguous to the greater curvature of the stomach is mildly thickened. There is contiguous to the low-attenuation hepatic segment small anterior fluid collection 1.2 cm in diameter. Irregular soft tissue density in the lesser sac superior to the pancreas and posterior to the stomach, measuring about 3 to 4 cm maximal diameter. Adjacent to a this density is a short expanded stent with anterior aspect by the gastric lumen consistent with the history of cystogastrostomy mild infiltration of the fat inferior to the pancreas. Liver: Decreased attenuation no mass is evident. Biliary: No bile duct dilation. Punctate high attenuation dependent region consistent with tiny gallstones. Spleen: No mass. No splenomegaly. Adrenals: No mass. Kidneys: Low-attenuation renal densities consistent with cortical cysts. Central low attenuation most likely represents peripelvic cysts rather than hydronephrosis. GI tract: No dilated bowel. Lymph nodes: There are a few borderline enlarged lymph nodes in the lesser sac adjacent to the stomach a reactive. Portacaval lymph node upper range normal in size. Nonenlarged mesenteric lymph nodes. Mesentery/Peritoneum: As above. No free fluid Vasculature: The celiac axis and SMA are patent. The portal vein and branches, splenic vein, SMV, and hepatic veins are patent. No abdominal aortic aneurysm. There is a LEFT-sided infrarenal IVC Bones/Soft Tissues: Unremarkable Lung Bases: No effusion or infiltrate IMPRESSION: Process of the pancreatic body. Near-complete resolution of peripancreatic fluid collections. There is most likely small fluid collection along the anterior margin of the necrotic segment of the pancreas. Residual irregular soft tissues adjacent to the pancreas consistent with peripancreatic necrosis. Nonspecific gastric wall thickening probably reactive. Punctate gallstones Reactive adenopathy Stable findings suggestive of peripelvic renal cysts and renal cortical cysts Hepatic steatosis Airline Lounge Receptionist: [facility] Transcribe Date/Time: Jul 08 2017 1:46P Dictated by : BARRON LANDA MD This examination was interpreted and the report reviewed and electronically signed by: BARRON LANDA MD on Jul 08 2017 2:07PM EST [id number] Observed: 07/04/2017 Status: COMPLETED Source: [place] 3:36 PM [facility] [place] REPOSITORY HNO ID: [id number] Author: Mili Powell Service: (none) Author Type: (none) Type: Progress Notes Filed: 07/04/2017 3:37 PM Note Text: Multiple VM's left for pt to CB to set up an appt. Letter sent. CNCO Observed: 07/04/2017 Status: COMPLETED Source: [place] 12:00 AM [facility] [place] REPOSITORY Letter Text Evans Newell [facility] Yohana Dolan MD [address] [place] [address] Evans Newell [id number] [place] [id number] July 04, 2017 Evans Newell Dear Mr. Newell, This letter is to inform you that our office has attempted to contact you by phone at [phone]. It is in regards to an appointment. Despite our efforts, we have been unsuccessful in speaking with you. We realize that there are many daily distractions and busy schedules. It is, however, important that you contact our office at your earliest convenience. Thank you, Yohana Dolan MD Office Staff PROGRESS Observed: 06/30/2017 Status: COMPLETED Source: [place] 9:02 AM [facility] REPOSITORY HNO ID: [id number] Author: Esperanza Giraldo Psr Service: (none) Author Type: (none) Type: Progress Notes Filed: 07/02/2017 10:03 PM Note Text: Left voicemail message for pt to call back so we may assist in scheduling a follow up appt. PROGRESS Observed: 06/28/2017 Status: COMPLETED Source: [place] 3:48 PM [facility] REPOSITORY HNO ID: [id number] Author: Esperanza Giraldo Psr Service: (none) Author Type: (none) Type: Progress Notes Filed: 07/02/2017 10:03 PM Note Text: Left voicemail message for pt to call back and schedule his appt. PROGRESS Observed: 06/28/2017 Status: COMPLETED Source: [place] 3:24 PM [facility] REPOSITORY HNO ID: [id number] Author: Yohana Dolan Service: (none) Author Type: Physician Type: Progress Notes Filed: 07/02/2017 10:03 PM Note Text: Orders approved. Yohana Dolan MD PROGRESS Observed: 06/28/2017 Status: COMPLETED Source: [place] 3:08 PM [facility] REPOSITORY HNO ID: [id number] Author: Feli Isaacs Nr-Electrician Helper Service: (none) Author Type: (none) Type: Progress Notes Filed: 07/02/2017 10:03 PM Note Text: PHMA CARE GAP REGISTRY DOCUMENTATION (OUTSIDE TEAMLET) Provider Action/FYI: Needs F/U BP check from either PCP or STUD SHEEP FARMER PSR Action/FYI: Needs an appt with PCP or STUD SHEEP FARMER to recheck BP, blood work needed prior to visit to update HM Patient identified by name and date of . Last BP/Labs: Blood Pressure: Last 3 Encounter BP Readings: Date: BP: 05/18/2017 178/81[Pt states his dr discontinued his BP med[ 05/16/2017 144/77 05/16/2017 165/90 Lipids: No results found for: CHOL No results found for: HDL No results found for: LDL No results found for: TG HGB A1C: No results found for: HBA1C TSH: No results found for: TSH) ? Patient has the following care gap registry disease diagnosis:HTN ? Patient has the following open care gaps:HTN - Last BP NOT under 140/90 ? Last office visit: 03/13/2017 ? Future office visit: Follow-up with either PCP or STUD SHEEP FARMER. Routing encounter to PCP to review orders and advise. Also routing to PSR OA and STAMP pool to schedule patient. [facility] CNPTOUTREACH Observed: 06/28/2017 Status: COMPLETED Source: [place] 12:00 AM [facility] REPOSITORY Patient Outreach (FAMPBR) EVANS NEWELL ([id number]) 1960 M Date Time Provider Department 06/28/17 FELI ISAACS (AMANDA) [facility] During your visit today, we recorded the following information about you: Feli Toscano 07/02/2017 10:03 PM Signed [facility] CARE GAP REGISTRY DOCUMENTATION (OUTSIDE TEAMLET) Provider Action/FYI: Needs F/U BP check from either PCP or STUD SHEEP FARMER PSR Action/FYI: Needs an appt with PCP or STUD SHEEP FARMER to recheck BP, blood work needed prior to visit to update HM Patient identified by name and date of . Last BP/Labs: Blood Pressure: Last 3 Encounter BP Readings: Date: BP: 05/18/2017 178/81[Pt states his dr discontinued his BP med[ 05/16/2017 144/77 05/16/2017 165/90 Lipids: No results found for: CHOL No results found for: HDL No results found for: LDL No results found for: TG HGB A1C: No results found for: HBA1C TSH: No results found for: TSH) ? Patient has the following care gap registry disease diagnosis:HTN ? Patient has the following open care gaps:HTN - Last BP NOT under 140/90 ? Last office visit: 03/13/2017 ? Future office visit: Follow-up with either PCP or STUD SHEEP FARMER. Routing encounter to PCP to review orders and advise. Also routing to PSR OA and STAMP pool to schedule patient. Feli Isaacs Nr-Electrician Helper Yohana Dolan MD 07/02/2017 10:03 PM Signed Orders approved. MD Esperanaz San Psr 07/02/2017 10:03 PM Signed Left voicemail message for pt to call back and schedule his appt. Esperanza Giraldo Psr 07/02/2017 10:03 PM Signed Left voicemail message for pt to call back so we may assist in scheduling a follow up appt. Mili Powell 07/04/2017 3:37 PM Addendum Multiple VM's left for pt to CB to set up an appt. Letter sent. Allergies As of Date: 06/28/2017 (No Known Allergies) Date Reviewed: 05/18/2017 Reviewed by: Susan Carlin Electrician Helper - Fully Assessed Reason for Visit: PHMA/Care Gap Outreach [3605] Cmt: Needs PCP or STUD SHEEP FARMER for a f/u BP check Primary Visit Diagnosis:Need for hepatitis C screening test [Z11.59] Other Visit Diagnoses:Encounter for prostate cancer screening [Z12.5] Screening for lipid disorders [Z13.220] Order(s):LIPID PANEL BASIC [SQLIPB] Order #: [id number] FUTURE HEP C AB IA W/CONF SCRN [EFIPIT6Y] Order #: [id number] FUTURE PSA/PROSTSPECAG SCRN [SQPSAS1] Order #: [id number] FUTURE Prescriptions as of 06/28/2017 Sig: CLONAZEPAM 1 MG TABLET Take 1 tablet by mouth twice * [id number] 24,00* Take 3 capsules by mouth thre* OMEPRAZOLE 20 MG CAPSULE,MARIELENA* Take 2 capsules by mouth once* OMEPRAZOLE 40 MG CAPSULE,MARIELENA* Take 1 capsule by mouth once * ACETAMINOPHEN 325 MG TABLET Take 2 tablets by mouth every* ONDANSETRON 4 MG TAB, RAPID D* Take 1 tablet by mouth every * VALSARTAN 320 MG-HYDROCHLOROT* Take 1 tablet by mouth once d* Problem List As Of Date 06/28/2017 Noted Resolved Loose body in knee, right knee [M23.41] INVALID FOR* Benign essential hypertension [I10] INVALID FOR* Obesity [E66.9] INVALID FOR* Tear of lateral meniscus of right knee [S83.281*INVALID FOR* Primary osteoarthritis of right knee [M17.11] INVALID FOR* Pancreatic pseudocyst [K86.3] INVALID FOR* WILVER (generalized anxiety disorder) [F41.1] INVALID FOR* Encounter Status:Closed by EPIC, PRODUSER on 07/02/17 ANES POST Observed: 06/07/2017 Status: COMPLETED Source: [place] 4:27 PM [facility] RE[facility] HNO ID: [id number] Author: Kevin Garcia Service: Anesthesiology Author Type: Anesthesiologist Type: Anesthesia PostOp Filed: 06/07/2017 4:27 PM Note Text: POST ANESTHESIA EVALUATION NOTE SERVICE DATE: 06/07/2017 SERVICE TIME: 16:27 : 1960 Vitals: There were no vitals filed for this visit. There were no vitals filed for this visit. There were no vitals filed for this visit. There were no vitals filed for this visit. There were no vitals filed for this visit. Validated Vital Signs: HR: 64; BP: 121/61; RR: 14; SpO2%: 97; Temperature: 36.6 POST ANES STATUS: No apparent anesthetic complications. The patient is appropriately hydrated with stable respiratory and cardiovascular status. Patient has safe and adequate airway control. The patient has appropriate pain relief and no significant post operative nausea or vomiting. The patient has achieved baseline mental status. Further assessment by Anesthesia Service: None Other Remarks: SIGNATURE: Kevin Garcia MD PATIENT NAME: Evans Newell DATE: June 07, 2017 TIME: 4:27 PM PAGER/CONTACT #: [phone] OBSOLETE Observed: 06/07/2017 Status: COMPLETED Source: [place] 4:00 PM [facility] REPOSIT[facility] Procedure (GASTPR) DONNEVANS PATEL ([id number]) 1960 M Date Time Provider Department 06/07/17 4:00 PM AMELIE GRACIA During your visit today, we recorded the following information about you: Francesco Ford RN, RN 06/07/2017 5:13 PM Signed AMBULATORY PATIENT EDUCATION NOTE TOPIC: GI PROCEDURES: Endoscopic Ultrasound (EUS) with or without Fine Needle Aspiration (FNA) READINESS TO LEARN INSTRUCTION PROVIDED TO: Patient and family member COGNITIVE ABILITY: Alert and oriented PTED MOTIVATION TO LEARN: Interested FAMILY SUPPORT: High - Very involved in pt care IPATIENT LEARNS BEST BY: Written Instruction - Hand-outs Verbal Instruction FACTORS AFFECTING LEARNING: None PHYSICAL LIMITATIONS AFFECTING LEARNING: None LEARNING RESPONSE METHOD OF INSTRUCTION: Individual instruction PATIENT / FAMILY RESPONSE: Verbalizes understanding of: WORSENING CONDITION-Signs and symptoms of a worsening condition that warrant a call to the physician FOLLOW-UP PLAN: Patient instructed to call with any further issues Follow up in CT SUPPLEMENTAL MATERIAL: Procedure Discharge Instructions REFERRAL (RECOMMENDATION): None Electronically Signed By: Francesco Ford RN Referring Provider: AMELIE GRACIA [[id number]] Allergies As of Date: 06/07/2017 (No Known Allergies) Date Reviewed: 05/18/2017 Reviewed by: Susan Carlin Electrician Helper - Fully Assessed Reason for Visit: Procedure [88] Cmt: EUS Visit Diagnosis:Cyst and pseudocyst of pancreas [K86.2, K86.3] Order(s):EGD EUS GEN ANES [9048917] Order #: [id number]. #:[id number] Prescriptions as of 06/07/2017 Sig: SYRLSS-EQORBTRQ-BVNIOWV 24,00* Take 3 capsules by mouth thre* OMEPRAZOLE 20 MG CAPSULE,MARIELENA* Take 2 capsules by mouth once* OMEPRAZOLE 40 MG CAPSULE,MARIELENA* Take 1 capsule by mouth once * ACETAMINOPHEN 325 MG TABLET Take 2 tablets by mouth every* ONDANSETRON 4 MG TAB, RAPID D* Take 1 tablet by mouth every * VALSARTAN 320 MG-HYDROCHLOROT* Take 1 tablet by mouth once d* CLONAZEPAM 1 MG TABLET Take 1 tablet by mouth twice * Problem List As Of Date 06/07/2017 Noted Resolved Loose body in knee, right knee [M23.41] INVALID FOR* Benign essential hypertension [I10] INVALID FOR* Obesity [E66.9] INVALID FOR* Tear of lateral meniscus of right knee [S83.281*INVALID FOR* Primary osteoarthritis of right knee [M17.11] INVALID FOR* Pancreatic pseudocyst [K86.3] INVALID FOR* Visit Notes: >> Francesco (Rn) NICKI Ford MonJun 07, 2017 5:12 PM Status: Signed AMBULATORY PATIENT EDUCATION NOTE TOPIC: GI PROCEDURES: Endoscopic Ultrasound (EUS) with or without Fine Needle Aspiration (FNA) READINESS TO LEARN INSTRUCTION PROVIDED TO: Patient and family member COGNITIVE ABILITY: Alert and oriented PTED MOTIVATION TO LEARN: Interested FAMILY SUPPORT: High - Very involved in pt care IPATIENT LEARNS BEST BY: Written Instruction - Hand-outs Verbal Instruction FACTORS AFFECTING LEARNING: None PHYSICAL LIMITATIONS AFFECTING LEARNING: None LEARNING RESPONSE METHOD OF INSTRUCTION: Individual instruction PATIENT / FAMILY RESPONSE: Verbalizes understanding of: WORSENING CONDITION-Signs and symptoms of a worsening condition that warrant a call to the physician FOLLOW-UP PLAN: Patient instructed to call with any further issues Follow up in CT SUPPLEMENTAL MATERIAL: Procedure Discharge Instructions REFERRAL (RECOMMENDATION): None Electronically Signed By: Francesco Ford RN Encounter Status:Closed by FRANCESCO FORD on 06/07/17 ALLERGIES ALLERGIES DATE TYPE / CODE NAME / CODE REACTION SEVERITY SOURCE 05/24/2018 Drug No Known Unknown [facility] Allergy/416 Allergies/O40813 [facility] 541996(SNOM 0388(RXNORM) Repository ED CT) Drug NO KNOWN [facility] Class/66814 ALLERGIES Other [place] 1003(SNOMED Repository CT) ENCOUNTERS ENCOUNTERS ADMIT/DISCHARGE ACCOUNT NUMBER ADMITTING ENCOUNTER LOCATION SOURCE CLASS 06/05/2018 [id number] Ambulatory [facility] ding:LAB Repository 05/24/2018/05/24/19 [id number] Emergency [address] ding:ED Repository 05/07/2018 [id number] Ambulatory [facility] ding:HH Repository 04/23/2018/04/23/20 [id number] Ambulatory [place] [facility] ding:HHLAB Repository 04/06/2018/04/11/20 [id number] TIFFANY WILL Inpatient Building:[place] [address] Encounter ARoom: [address]: [address] [facility] Repository 04/06/2018 [id number] Ambulatory BMSBuilding: [place] BMS.CF.WSA [facility] Hospital Repository 04/06/2018/04/06/20 [id number] Emergency [place] [address] [facility] ding:ED Repository 04/02/2018/04/13/20 [id number] Ambulatory [place] 18 [facility] Hospital ding:HHLAB Repository 03/31/2018/03/31/20 [id number] Emergency [place] 18 [facility] Hospital ding:ED Repository 03/25/2018 [id number] Ambulatory [place] [facility] ding:HHLAB Repository 03/05/2018/03/14/20 [id number] Ambulatory [place] 18 [facility] Hospital ding:HHLAB Repository 02/19/2018/03/14/20 [id number] Ambulatory [place] 18 [facility] Hospital ding:HHLAB Repository 01/22/2018/02/12/20 [id number] Ambulatory [place] 18 [facility] ding:HHLAB Repository 01/18/2018/01/19/20 [id number] Emergency [place] 18 [facility] ding:ED Repository 01/18/2018 [id number] Ambulatory [place] [facility] Hospital ding:CVS Repository 01/17/2018/01/18/20 [id number] Emergency [place] 18 [facility] ding:ED Repository 01/01/2018/01/13/20 [id number] Ambulatory [place] 18 [facility] Hospital ding:HHLAB Repository 12/23/2017 [id number] Ambulatory [place] [facility] ding:LAB Repository 11/30/2017/12/01/19 [id number] Ambulatory [place] [address] [facility] ding:LAB Repository 11/27/2017/12/13/19 [id number] Ambulatory [place] [address] [facility] ding:HHLAB Repository 11/06/2017/11/09/19 [id number] Ambulatory [address] [place] Repository 11/06/2017/11/08/19 [id number] Ambulatory [address] [place] Repository 11/06/2017/11/07/19 [id number] Ambulatory [address] [place] Repository 11/03/2017 [id number] Ambulatory [facility] Other [place] Repository 11/03/2017 [id number] Ambulatory [facility] Other [place] Repository 10/20/2017/10/24/19 [id number] Ambulatory [address] [place] Repository 10/20/2017/10/21/19 [id number] Ambulatory [address] [place] Repository 10/20/2017/10/24/19 [id number] Ambulatory [address] [place] Repository 10/20/2017 [id number] Ambulatory [facility] Main [place] Repository 10/13/2017/10/14/19 [id number] Ambulatory [address] [place] Repository 10/13/2017/10/17/19 [id number] Ambulatory [address] [place] Repository 10/13/2017 [id number] Ambulatory [facility] Main [place] Repository 10/06/2017/10/07/19 [id number] Ambulatory [address] [place] Repository 10/05/2017/10/06/19 [id number] OSVALDO, Ambulatory [address] Other [place] Repository 10/02/2017/10/04/19 [id number] Ambulatory [address] [place] Repository 09/22/2017/09/23/19 [id number] Ambulatory [address] [place] Repository 09/19/2017/09/21/19 [id number] Ambulatory [address] [place] Repository 09/16/2017/09/23/19 [id number] SRINIVASA MACEDO, [place] [address] [facility] Main [place] Repository 09/07/2017/09/09/19 [id number] Ambulatory [address] [place] Repository 08/24/2017/08/25/19 [id number] AVINA, Ambulatory [address] Other [place] Repository 08/15/2017/08/18/19 [id number] Ambulatory [address] Repository 07/19/2017/07/21/19 [id number] Ambulatory [address] Repository 07/08/2017 [id number] Ambulatory [facility] Repository 06/07/2017 [id number] BRITTANI, Ambulatory [facility] Repository 06/07/2017 [id number] [facility] Repository PAYERS PAYERS ENCOUNTER GUARANTOR PAYER SUBSCRIBER SOURCE 06/05/2018 EVANS Martínez Primary EVANS Martínez [place] [id number] Insurance:ANTHEMPolic PALFENIERDOB: Community [place] y [place]: [id number] [id number] Repository [address]Qwn: (330) Date:3167-48-22BC [phone] () [id number], [place] [address]CS: 06/05/2018 Secondary NOT GIVENUNK [place] Insurance:SELF PAY [facility] Number: Effective Repository Date:2018-05-14 05/24/2018 EVANS Martínez Primary EVANS Martínez [place] [id number] Insurance:ANTHEMPolic PALFENIERDOB: Community BALES y Number: [id number], [place] [id number] Repository 6[address]Gct: (330) Date:8448-36-50JV [phone] () [id number], [place] [address]ND: 05/24/2018 Secondary NOT GIVENUNK [place] Insurance:SELF PAY [facility] Number: Effective Repository Date:2018-05-24 05/07/2018 EVANS Martínez Primary EVANS [place] [id number] Insurance:ANTHEMPolic PALFENIERDOB: Community BALES y Number: [id number], [place] [id number] Repository [address]Adp: (330) Date:5227-77-14KI [phone] () [id number], [place] [address]RC: 05/07/2018 Secondary NOT GIVENUNK [place] Insurance:SELF PAY [facility] Number: Effective Repository Date:2018-05-07 04/23/2018 EVANS Martínez Primary EVANS Martínez [place] [id number] Insurance:ANTHEMPolic PALFENIERDOB: [facility] y Number: [id number] [place] [id number] Repository [address]Oxn: (330) Date:6402-21-53FO [phone] () [id number] [place] [address]AA: 04/23/2018 Secondary NOT GIVENUNK [place] Insurance:SELF PAY [facility] Number: Effective Repository Date:2018-04-14 04/06/2018 EVANS Martínez Primary EVANS Martínez [facility] PALFENIERDOB: Insurance:ANTHEM O PALFENIERDOB: [place] [id number] [facility] POSPolic Number: [id number] [place] [address] [id number] [place] [address], Date:[facility] [address]Ebj: Name:[facility] [place] [address]Rdm: () () 04/06/2018 EVANS Martínez Primary EVANS Martínez [place] [id number] Insurance:ANTHEMPolic PALFENIERDOB: [facility] y Number: [id number], [place] [id number] Repository [address]Pvk: (330) Date:1382-23-20YT [phone] () [id number] [place] [address]ZX: 04/06/2018 Secondary NOT GIVENUNK [place] Insurance:SELF PAY [facility] Number: Effective Repository Date:2018-04-06 04/06/2018 EVANS Martínez Primary EVANS Martínez [place] [id number] Insurance:ANTHEMPolic PALFENIERDOB: [facility] y Number: [id number] [place] [id number] Repository [address]Tnp: (330) Date:8276-94-89IG [phone] () 449268ZCIPFDY, [place] [address]HR: 04/06/2018 Secondary NOT GIVENUNK [place] Insurance:SELF PAY [facility] Number: Effective Repository Date:2018-04-06 04/02/2018 EVANS Martínez Primary EVANS Martínez [place] [id number] Insurance:ANTHEMPolic PALFENIERDOB: Community BALES y Number: [id number], [place] [id number] Repository 85[address]Hzv: (330) Date:2644-67-33NA [phone] () [id number], [place] [address]UP: 04/02/2018 Secondary NOT GIVENUNK [place] Insurance:SELF PAY [facility] Number: Effective Repository Date:2018-03-15 03/31/2018 EVANS Martínez Primary EVANS Martínez [place] [id number] Insurance:ANTHEMPolic PALFENIERDOB: Community BALES y Number: [id number], [place] [id number] Repository [address]Gmn: (330) Date:2789-87-74GL [phone] () [id number], [place] [address]DU: 03/31/2018 Secondary NOT GIVENUNK [place] Insurance:SELF PAY [facility] Number: Effective Repository Date:2018-03-31 03/25/2018 EVANS Martínez Primary EVANS Martínez [place] [id number] Insurance:ANTHEMPolic PALFENIERDOB: Community BALES y Number: [id number], [place] [id number] Repository [address]Fmg: (330) Date:8042-39-08VS [phone] () 892651ZMCOOFM, [place] [address]JY: 03/25/2018 Secondary NOT GIVENUNK [place] Insurance:SELF PAY [facility] Number: Effective Repository Date:2018-03-15 03/05/2018 EVANS Martínez Primary EVANS Martínez [place] [id number] Insurance:ANTHEMPolic PALFENIERDOB: Community [place] y Number: [id number], [place] [id number] Repository [address]Wki: (330) Date:8277-99-70HA [phone] () 071555ZCHTNLN [place] [address]NT: 03/05/2018 Secondary NOT GIVENUNK [place] Insurance:SELF PAY [facility] Number: Effective Repository Date:2018-03-05 02/19/2018 EVANS Martínez Primary EVANS Martínez [place] [id number] Insurance:ANTHEMPolic PALFENIERDOB: Community BALES y Number: [id number], [place] [id number] Repository [address]Cqr: (330) Date:7153-03-26BQ [phone] () [id number], [place] [address]KE: 02/19/2018 Secondary NOT GIVENUNK [place] Insurance:SELF PAY [facility] Number: Effective Repository Date:2018-02-12 01/22/2018 EVANS Martínez Primary EVANS Martínez [place] [id number] Insurance:ANTHEMPolic PALFENIERDOB: Community BALES y Number: [id number], [place] [id number] Repository [address]Pzp: (330) Date:4693-02-18CZ [phone] () 567641WBINNAZ [place] [address]YY: 01/22/2018 Secondary NOT GIVENUNK [place] Insurance:SELF PAY [facility] Number: Effective Repository Date:2018-01-13 01/18/2018 EVANS Martínez Primary EVANS Martínez [place] [id number] Insurance:ANTHEMPolic PALFENIERDOB: Community BALES y Number: [id number], [place] [id number] Repository [address]Gnd: (330) Date:0453-09-59TY [phone] () 408777TNWMTGG, [place] [address]AG: 01/18/2018 Secondary NOT GIVENUNK [place] Insurance:SELF PAY [facility] Number: Effective Repository Date:2018-01-18 01/18/2018 EVANS Martínez Primary EVANS Martínez [place] [id number] Insurance:ANTHEMPolic PALFENIERDOB: Community BALES y Number: [id number], [place] [id number] Repository [address]Pyw: (330) Date:1443-72-82AU [phone] () [id number], [place] [address]ZM: 01/18/2018 Secondary NOT GIVENUNK [place] Insurance:SELF PAY [facility] Number: Effective Repository Date:2018-01-18 01/17/2018 EVANS Martínez Primary EVANS Tanya [place] [id number] Insurance:ANTHEMPolic PALFENIERDOB: Community BALES y Number: [id number], [place] [id number] Repository [address]Zsv: (330) Date:4686-99-95JK [phone] () 211680RJDAYGJ, [place] [address]OF: 01/17/2018 Secondary NOT GIVENUNK [place] Insurance:SELF PAY [facility] Number: Effective Repository Date:2018-01-17 01/01/2018 EVANS Martínez Primary EVANS Martínez [place] [id number] Insurance:ANTHEMPolic PALFENIERDOB: Community BALES y Number: [id number], [place] [id number] Repository [address]Ysu: (330) Date:4513-78-56BD [phone] () 816782VXFRTCK, [place] [address]HN: 01/01/2018 Secondary NOT GIVENUNK [place] Insurance:SELF PAY [facility] Number: Effective Repository Date:2017-12-13 12/23/2017 EVANS Martínez Primary EVANS Martínez [place] [id number] Insurance:ANTHEMPolic PALFENIERDOB: Community [place] y Number: [id number], [place] [id number] Repository [address]Yci: (330) Date:4959-27-02KR [phone] () 853297WJBYUWV, [place] [address]NI: 12/23/2017 Secondary NOT GIVENUNK [place] Insurance:SELF PAY [facility] Number: Effective Repository Date:2017-12-14 11/30/2017 EVANS Martínez Primary EVANS Martínez [place] [id number] Insurance:ANTHEMPolic PALFENIERDOB: Community BALES y Number: [id number], [place] [id number] Repository 35[address]Zoa: (330) Date:2146-26-05LT [phone] () [id number] [place] [address]FW: 11/30/2017 Secondary NOT GIVENUNK [place] Insurance:SELF PAY [facility] Number: Effective Repository Date:2017-11-30 11/27/2017 EVANS Martínez Primary EVANS Martínez [place] [id number] Insurance:ANTHEMPolic PALFENIERDOB: [facility] y Number: [id number], [place] [id number] Repository [address]Chi: (330) Date:7338-94-53PA [phone] () 547904POKDEAH [place] [address]WU: 11/27/2017 Secondary NOT GIVENUNK [place] Insurance:SELF PAY [facility] Number: Effective Repository Date:2017-11-20
== END 2018-04-23 17:35 | disposition home or self-care (01) ==
LOC: HHLAB 16:35
PROVIDERS: Family Provider Family Medicine; PCP Family Medicine; Referring Provider Specialist/Technologist, Other Surgical Technologist; Visit Provider Specialist/Technologist, Other Surgical Technologist
DX: C25.9 Malignant neoplasm of pancreas, unspecified (principal); Z45.2 Encounter for adjustment and management of vascular access device
CPT/HCPCS: 80053; 83735; 84100; 84134; 85027

== ENCOUNTER → 2018-05-07 14:34 | Outpatient (CLI) | payer BC, SELFPAY ==
[2018-04-06 13:10] VITALS: BMI 23.3
[2018-05-07 14:59] LABS: Hemoglobin 8.4 g/dl (13.0-16.5); Mean Corp Hgb Conc 32.3 g/gl (32-36); Mean Corpuscular Hgb 30.9 pg (27.0-32.0); Mean Corpuscular Volume 95.6 fL (80-94); Mean Platelet Vol. 10.9 fl (6.2-12.0); Platelet Count 72 K/mm3 (150-450); RBC Distribution Width CV 16.5 % (11.6-14.6); RBC Distribution Width SD 56.7 fl (35.1-43.9); Red Blood Count 2.72 M/mm3 (4.6-6.2); White Blood Count 6.4 K/mm3 (4.4-11.0)
[2018-05-07 15:06] LABS: Scan Indicated on CBC? Y/N NO
[2018-05-07 15:25] LABS: ALB/GLOB Ratio 0.6 RATIO (0.9-2.4); AST(SGOT) 47 U/L (15-37); Alanine Aminotransfer ALT/SGPT 71 U/L (16-61); Albumin, Serum 2.1 g/dL (3.2-5.0); Alkaline Phosphatase 385 U/L (45-117); Anion Gap 8 (5-15); BUN 18 mg/dL (7-18); Calcium,Total 7.4 mg/dL (8.5-10.1); Chloride 107 mmol/L (98-107); Creatinine, Serum 0.46 mg/dL (0.70-1.30); EST Glomerular Filtration Rate 198 mL/min (>60); Est Glom Filt Rate - Afr Amer 240 mL/min (>60); Globulin 3.6 g/dL (2.2-4.2); Glucose 106 mg/dL (74-106); Magnesium 1.7 mg/dL (1.6-2.6); Phosphorus 2.7 mg/dL (2.5-4.9); Potassium 3.8 mmol/L (3.5-5.1); Prealbumin 19.2 mg/dL (20.0-40.0); Protein, Total 5.7 g/dL (6.4-8.2); Sodium Level 141 mmol/L (136-145)
== END ==
PROVIDERS: Family Provider Family Medicine; PCP Family Medicine; Visit Provider Family Medicine
DX: Z45.2 Encounter for adjustment and management of vascular access device (principal); D49.0 Neoplasm of unspecified behavior of digestive system; C25.9 Malignant neoplasm of pancreas, unspecified; G89.3 Neoplasm related pain (acute) (chronic)
CPT/HCPCS: 36415; 80053; 83735; 84100; 84134; 85027

== ENCOUNTER 2018-05-24 12:11 | Emergency (ER) | payer BC, SELFPAY ==
[2018-04-06 13:10] VITALS: BMI 23.3
[2018-05-24 12:12] VITALS: BP 114/71; PULSE 79; RESP 17; TEMP 37.1; O2SAT 98; BMI 24.9
[2018-05-24 13:26] LABS: Absolute Lymphocyte Count 1.29 X10^3/ul (0.83-4.51); Absolute Neutrophil Count 3.8 X10^3/uL (2.0-7.7); Basophil# 0.01 X10^3/uL; Basophil% 0.2 % (0-1); Eosinophil# 0.02 X10^3/uL; Eosinophils% 0.3 % (0-5); Hematocrit 25.4 % (40-54); Hemoglobin 8.2 g/dl (13.0-16.5); Lymphocyte # 1.29 X10^3/ul (4.0); Lymphocyte % 22.2 % (19-41); Mean Corp Hgb Conc 32.3 g/gl (32-36); Mean Corpuscular Hgb 31.4 pg (27.0-32.0); Mean Corpuscular Volume 97.3 fL (80-94); Mean Platelet Vol. 12.6 fl (6.2-12.0); Monocyte# 0.66 X10^3/uL; Monocyte% 11.4 % (0-10); Neutrophil # 3.79 X10^3/uL (2.7-7.7); Neutrophil % 65.4 % (47-70); POSITIVE COUNT NO; POSITIVE DIFFERENTIAL NO; POSITIVE MORPHOLOGY NO; Platelet Count 59 K/mm3 (150-450); RBC Distribution Width CV 18.9 % (11.6-14.6); RBC Distribution Width SD 64.9 fl (35.1-43.9); Red Blood Count 2.61 M/mm3 (4.6-6.2); White Blood Count 5.8 K/mm3 (4.4-11.0)
[2018-05-24] MEDS: 0.9% Normal Saline 1,000 ML 1000 ML IV (13:31)
[2018-05-24] MEDS: levoFLOXacin IV 750 MG/150 ML BAG 100 MG IV (13:31)
[2018-05-24 13:33] LABS: ALB/GLOB Ratio 0.6 RATIO (0.9-2.4); AST(SGOT) 33 U/L (15-37); Alanine Aminotransfer ALT/SGPT 52 U/L (16-61); Albumin, Serum 2.2 g/dL (3.2-5.0); Alkaline Phosphatase 390 U/L (45-117); Anion Gap 9 (5-15); BUN 21 mg/dL (7-18); BUN/Creat Ratio 43.9 RATIO (10-20); Calcium,Total 8.2 mg/dL (8.5-10.1); Chloride 107 mmol/L (98-107); Creatinine, Serum 0.48 mg/dL (0.70-1.30); EST Glomerular Filtration Rate 190 mL/min (>60); Est Glom Filt Rate - Afr Amer 230 mL/min (>60); Estimated Creatinine Clearance 203.44 ml/min; Globulin 3.6 g/dL (2.2-4.2); Glucose 117 mg/dL (74-106); Potassium 3.8 mmol/L (3.5-5.1); Protein, Total 5.8 g/dL (6.4-8.2); Sodium Level 143 mmol/L (136-145)
[2018-05-24 13:34] LABS: Lactic Acid 1.3 mmol/L (0.4-2.0)
[2018-05-24 13:35] VITALS: PULSE 62; RESP 18; TEMP 36.9; O2SAT 98
[2018-05-24] MEDS: HYDROmorphone 1 MG/ML Syringe IV (14:22)
[2018-05-24 15:11] VITALS: BP 101/54; PULSE 51; RESP 18; TEMP 37.2; O2SAT 97
--- NOTE | 2018-05-24 16:14 | ED.VISSUMM ---
- ER Visit Summary Date of Service: 05/24/18 Chief Complaint: Oozing from G-tube History of Present Illness: The patient is a [address] Martin and Dr. Mcgee, an [facility] [place]. He reports that he has a history of pancreatic cancer. His last chemo was 10 days ago. He is scheduled to have course #11 in 4 days. He had a G-tube placed in [place] [address] Parra. He reports that he began having oozing from around the site last night. He does report that it feels sore. 6 out of 10 at worst and 4-10 currently. Is worsened by nothing relieved by nothing. He denies any associated fever or chills. He he has chronic nausea that is unchanged. He is not vomited. He also has chronic diarrhea that is unchanged. He denies any blood in his stools or black tarry stools. Physical Examination: Vitals: 98.4, 114/71, 102, 18, 90% room air which is not hypoxic. General: Well-nourished and well-developed. Head: Normocephalic atraumatic. Neck: Supple, no lymphadenopathy. No JVD. Nontender. Cardiovascular: Regular rate and rhythm. No murmurs. Respiratory: No respiratory distress. Clear to auscultation bilaterally. Abdominal: Soft, mild epigastric tenderness to palpation, nondistended, normal bowel sounds. No guarding, rebound, or peritoneal signs. G-tube site shows minimal surrounding erythema. There is no induration. There is a small amount of purulent drainage on the dressing. I am unable to express any purulent drainage. Back: Nontender. Extremities: Nontender, no edema. Skin: Normal color, no rash. Neurologic: Alert and oriented ?3. Cranial nerves II through XII are intact. Normal strength and sensation. Psych: Normal affect. Test Results: CBC is marked for a white count of 5.8 with an H&H of 8.2 25.4, platelets 59, monocytes of 11. His hemoglobin was 8.0 on May 21. Is range between 8-9.7 since March 2018. Chem-7 is more for calcium 8.2, glucose 117, BUN of 21, creatinine 0.48. LFTs marked total protein 5.8 and albumin 2.2. His alk phos was 390. Lactic acid is 1.3. Emergency Department Course and Treatment: Patient reports he had a similar episode approximately 1 month ago that seemed to resolve with Levaquin and amoxicillin. He had a culture obtained that shows E. coli, Klebsiella, and staph. The patient was given a dose of vancomycin and Levaquin IV. He is resting comfortably. Treatment Plan: Patient feels well and would like to go home. A culture was obtained. He will be discharged on Levaquin to cover E. coli and Klebsiella. I will use doxycycline rather than amoxicillin to also cover MRSA. Family is happy with this plan. Follow-up with Dr. Martin in 2 days for a wound check. Return to the emergency department for any worsening symptoms. Disposition: To home in improved and stable condition. Impression: 1. G-tube infection. 2. Pancreatic cancer and chemotherapy. 3. Anemia. This note was generated with [employer] dictation software. It may contain incorrect words, spelling, and punctuation that were not noted in review of the chart prior to signing ED Disposition - Plan for ED Patient: Chief Complaint: Wound Check Instructions: ED Wound Infec After Surgery Prescriptions: Levofloxacin [Levaquin] 750 mg PO DAILY #7 tablet Doxycycline 100 mg PO BID #14 capsule Referrals: Kleber Martin DO [Primary Care Provider] - 2 Days for wound check
[2018-05-24 17:11] VITALS: BP 110/50; PULSE 52; RESP 18; O2SAT 98
== END 2018-05-24 17:22 | disposition home or self-care (01) ==
LOC: ED 13:46
PROVIDERS: Emergency Provider Emergency Medicine; Family Provider Family Medicine; PCP Family Medicine
DX: K94.22 Gastrostomy infection (principal); C25.9 Malignant neoplasm of pancreas, unspecified; D64.9 Anemia, unspecified; R19.7 Diarrhea, unspecified; R30.0 Dysuria; R35.0 Frequency of micturition; Z79.899 Other long term (current) drug therapy
CPT/HCPCS: 36415; 36592; 80053; 83605; 85025; 87040; 87070; 87186; 87205; 96365; 96366; 96367; 96375; 99282; J7030; J7040; A4216

== ENCOUNTER → 2018-06-11 16:12 | Outpatient (CLI) | payer BC, SELFPAY ==
[2018-05-24 12:12] VITALS: BMI 24.9
[2018-06-11 17:23] LABS: ALB/GLOB Ratio 0.7 RATIO (0.9-2.4); AST(SGOT) 63 U/L (15-37); Alanine Aminotransfer ALT/SGPT 86 U/L (16-61); Albumin, Serum 2.4 g/dL (3.2-5.0); Alkaline Phosphatase 454 U/L (45-117); Anion Gap 9 (5-15); BUN 21 mg/dL (7-18); BUN/Creat Ratio 40.5 RATIO (10-20); Calcium,Total 7.8 mg/dL (8.5-10.1); Chloride 95 mmol/L (98-107); Creatinine, Serum 0.52 mg/dL (0.70-1.30); EST Glomerular Filtration Rate 173 mL/min (>60); Est Glom Filt Rate - Afr Amer 210 mL/min (>60); Globulin 3.6 g/dL (2.2-4.2); Glucose 102 mg/dL (74-106); Magnesium 1.7 mg/dL (1.6-2.6); Phosphorus 3.8 mg/dL (2.5-4.9); Potassium 2.8 mmol/L (3.5-5.1); Prealbumin 22.2 mg/dL (20.0-40.0); Sodium Level 136 mmol/L (136-145)
[2018-06-11 18:06] LABS: Hematocrit 26.2 % (40-54); Hemoglobin 8.6 g/dl (13.0-16.5); Mean Corp Hgb Conc 32.8 g/gl (32-36); Mean Corpuscular Volume 97.4 fL (80-94); Mean Platelet Vol. 12.1 fl (6.2-12.0); Platelet Count 74 K/mm3 (150-450); RBC Distribution Width CV 19.1 % (11.6-14.6); RBC Distribution Width SD 66.6 fl (35.1-43.9); Red Blood Count 2.69 M/mm3 (4.6-6.2); White Blood Count 7.5 K/mm3 (4.4-11.0)
[2018-06-11 18:07] LABS: Scan Indicated on CBC? Y/N YES- FLAGS NOTED
== END ==
PROVIDERS: Family Provider Family Medicine; PCP Family Medicine
DX: C25.9 Malignant neoplasm of pancreas, unspecified (principal)
CPT/HCPCS: 80053; 83735; 84100; 84134; 85027

== ENCOUNTER 2018-06-13 14:56 | Outpatient (RCR) | payer BC, SELFPAY ==
[2018-04-06 13:10] VITALS: BMI 23.3
[2018-05-21 13:43] LABS: Anion Gap 9 (5-15); BUN 20 mg/dL (7-18); BUN/Creat Ratio 44.4 RATIO (10-20); Calcium,Total 7.6 mg/dL (8.5-10.1); Chloride 109 mmol/L (98-107); Creatinine, Serum 0.45 mg/dL (0.70-1.30); EST Glomerular Filtration Rate 204 mL/min (>60); Est Glom Filt Rate - Afr Amer 247 mL/min (>60); Glucose 95 mg/dL (74-106); Magnesium 1.7 mg/dL (1.6-2.6); Phosphorus 2.5 mg/dL (2.5-4.9); Potassium 3.5 mmol/L (3.5-5.1); Prealbumin 19.8 mg/dL (20.0-40.0); Sodium Level 144 mmol/L (136-145)
[2018-05-21 13:48] LABS: Absolute Lymphocyte Count 1.21 X10^3/ul (0.83-4.51); Absolute Neutrophil Count 8.2 X10^3/uL (2.0-7.7); Basophil# 0.01 X10^3/uL; Basophil% 0.1 % (0-1); Eosinophil# 0.05 X10^3/uL; Eosinophils% 0.5 % (0-5); Hematocrit 24.7 % (40-54); Lymphocyte # 1.21 X10^3/ul (4.0); Lymphocyte % 12.4 % (19-41); Mean Corp Hgb Conc 32.4 g/gl (32-36); Mean Corpuscular Hgb 31.3 pg (27.0-32.0); Mean Corpuscular Volume 96.5 fL (80-94); Mean Platelet Vol. 11.8 fl (6.2-12.0); Monocyte# 0.27 X10^3/uL; Monocyte% 2.8 % (0-10); Neutrophil # 8.17 X10^3/uL (2.7-7.7); Neutrophil % 83.8 % (47-70); Platelet Count 81 K/mm3 (150-450); RBC Distribution Width CV 18.7 % (11.6-14.6); RBC Distribution Width SD 64.6 fl (35.1-43.9); Red Blood Count 2.56 M/mm3 (4.6-6.2); White Blood Count 9.8 K/mm3 (4.4-11.0)
[2018-05-21 13:49] LABS: Differential Indicated SCAN CRITERIA MET; POSITIVE COUNT YES; POSITIVE DIFFERENTIAL NO; POSITIVE MORPHOLOGY NO
[2018-05-28 16:47] LABS: Hematocrit 30.6 % (40-54); Hemoglobin 9.8 g/dl (13.0-16.5); Mean Corpuscular Hgb 31.6 pg (27.0-32.0); Mean Corpuscular Volume 98.7 fL (80-94); Mean Platelet Vol. 11.6 fl (6.2-12.0); Platelet Count 149 K/mm3 (150-450); RBC Distribution Width CV 19.9 % (11.6-14.6); RBC Distribution Width SD 71.2 fl (35.1-43.9); White Blood Count 8.5 K/mm3 (4.4-11.0)
[2018-05-28 16:52] LABS: Scan Indicated on CBC? Y/N YES- FLAGS NOTED
[2018-05-28 16:58] LABS: ALB/GLOB Ratio 0.7 RATIO (0.9-2.4); AST(SGOT) 77 U/L (15-37); Alanine Aminotransfer ALT/SGPT 76 U/L (16-61); Albumin, Serum 2.6 g/dL (3.2-5.0); Alkaline Phosphatase 507 U/L (45-117); Anion Gap 12 (5-15); BUN 22 mg/dL (7-18); BUN/Creat Ratio 32.3 RATIO (10-20); Calcium,Total 8.2 mg/dL (8.5-10.1); Chloride 106 mmol/L (98-107); Creatinine, Serum 0.68 mg/dL (0.70-1.30); EST Glomerular Filtration Rate 127 mL/min (>60); Est Glom Filt Rate - Afr Amer 153 mL/min (>60); Globulin 3.8 g/dL (2.2-4.2); Glucose 94 mg/dL (74-106); Magnesium 1.7 mg/dL (1.6-2.6); Phosphorus 2.5 mg/dL (2.5-4.9); Potassium 3.2 mmol/L (3.5-5.1); Prealbumin 19.4 mg/dL (20.0-40.0); Protein, Total 6.4 g/dL (6.4-8.2); Sodium Level 142 mmol/L (136-145)
[2018-06-05 15:01] LABS: Hematocrit 27.7 % (40-54); Hemoglobin 8.8 g/dl (13.0-16.5); Mean Corp Hgb Conc 31.8 g/gl (32-36); Mean Corpuscular Hgb 31.7 pg (27.0-32.0); Mean Corpuscular Volume 99.6 fL (80-94); Mean Platelet Vol. 10.9 fl (6.2-12.0); Platelet Count 93 K/mm3 (150-450); RBC Distribution Width CV 19.1 % (11.6-14.6); RBC Distribution Width SD 70.7 fl (35.1-43.9); Red Blood Count 2.78 M/mm3 (4.6-6.2)
[2018-06-05 15:02] LABS: Scan Indicated on CBC? Y/N YES- FLAGS NOTED; White Blood Count 30.2 K/mm3 (4.4-11.0)
[2018-06-05 15:17] LABS: ALB/GLOB Ratio 0.6 RATIO (0.9-2.4); AST(SGOT) 115 U/L (15-37); Alanine Aminotransfer ALT/SGPT 143 U/L (16-61); Albumin, Serum 2.2 g/dL (3.2-5.0); Alkaline Phosphatase 342 U/L (45-117); Anion Gap 8 (5-15); BUN 23 mg/dL (7-18); BUN/Creat Ratio 51.6 RATIO (10-20); Calcium,Total 7.9 mg/dL (8.5-10.1); Chloride 103 mmol/L (98-107); Creatinine, Serum 0.45 mg/dL (0.70-1.30); EST Glomerular Filtration Rate 206 mL/min (>60); Est Glom Filt Rate - Afr Amer 249 mL/min (>60); Globulin 3.4 g/dL (2.2-4.2); Glucose 57 mg/dL (74-106); Magnesium 1.9 mg/dL (1.6-2.6); Phosphorus 3.2 mg/dL (2.5-4.9); Potassium 3.4 mmol/L (3.5-5.1); Prealbumin 24.9 mg/dL (20.0-40.0); Protein, Total 5.6 g/dL (6.4-8.2); Sodium Level 142 mmol/L (136-145)
[2018-06-05 15:23] LABS: Differential Comment SCANNED
[2018-06-06 14:27] LABS: Pathologist Review Reviewed
[2018-06-13 15:19] LABS: Potassium 2.8 mmol/L (3.5-5.1)
== END 2018-06-14 23:59 ==
LOC: HHLAB 14:56
PROVIDERS: Family Provider Family Medicine; PCP Family Medicine; Referring Provider Specialist/Technologist, Other Surgical Technologist; Visit Provider Specialist/Technologist, Other Surgical Technologist
DX: C25.9 Malignant neoplasm of pancreas, unspecified (principal); E43 Unspecified severe protein-calorie malnutrition
CPT/HCPCS: 80048; 80053; 83735; 84100; 84132; 84134; 85025; 85027

== ENCOUNTER → 2018-06-25 13:59 | Outpatient (CLI) | payer BC, SELFPAY ==
[2018-06-25 12:28] VITALS: BMI 24.9
[2018-06-25 14:10] VITALS: BP 116/62; PULSE 58; RESP 16; TEMP 37.1; O2SAT 97; BMI 23.5
[2018-06-25] MEDS: Alteplase 2 MG/2 ML Vial IV (14:22)
== END ==
PROVIDERS: Family Provider Family Medicine; PCP Family Medicine; Referring Provider Family Medicine; Visit Provider Family Medicine
DX: Z45.2 Encounter for adjustment and management of vascular access device (principal); C25.9 Malignant neoplasm of pancreas, unspecified
CPT/HCPCS: 36593; J2997; A4216

== ENCOUNTER 2018-07-09 13:55 | Outpatient (RCR) | payer BC, SELFPAY ==
[2018-06-15 00:48] VITALS: BMI 23.3
[2018-06-25 14:10] VITALS: BMI 23.5
[2018-06-25 17:19] LABS: ALB/GLOB Ratio 0.8 RATIO (0.9-2.4); AST(SGOT) 64 U/L (15-37); Alanine Aminotransfer ALT/SGPT 131 U/L (16-61); Albumin, Serum 2.6 g/dL (3.2-5.0); Alkaline Phosphatase 392 U/L (45-117); Anion Gap 10 (5-15); BUN 24 mg/dL (7-18); BUN/Creat Ratio 40.4 RATIO (10-20); Calcium,Total 8.1 mg/dL (8.5-10.1); Chloride 106 mmol/L (98-107); Creatinine, Serum 0.59 mg/dL (0.70-1.30); EST Glomerular Filtration Rate 148 mL/min (>60); Est Glom Filt Rate - Afr Amer 179 mL/min (>60); Globulin 3.3 g/dL (2.2-4.2); Glucose 61 mg/dL (74-106); Phosphorus 3.6 mg/dL (2.5-4.9); Potassium 3.8 mmol/L (3.5-5.1); Prealbumin 27.4 mg/dL (20.0-40.0); Protein, Total 5.9 g/dL (6.4-8.2); Sodium Level 141 mmol/L (136-145)
[2018-06-26 16:46] LABS: Hematocrit 29.6 % (40-54); Hemoglobin 9.4 g/dl (13.0-16.5); Mean Corp Hgb Conc 31.8 g/gl (32-36); Mean Corpuscular Hgb 32.8 pg (27.0-32.0); Mean Corpuscular Volume 103.1 fL (80-94); Mean Platelet Vol. 12.1 fl (6.2-12.0); Platelet Count 109 K/mm3 (150-450); RBC Distribution Width CV 18.9 % (11.6-14.6); RBC Distribution Width SD 68.9 fl (35.1-43.9); Red Blood Count 2.87 M/mm3 (4.6-6.2); White Blood Count 8.8 K/mm3 (4.4-11.0)
[2018-06-26 16:47] LABS: Scan Indicated on CBC? Y/N YES- FLAGS NOTED
[2018-06-26 17:35] LABS: Differential Comment SEE COMMENTS
[2018-07-09 14:33] LABS: Hematocrit 26.9 % (40-54); Hemoglobin 8.9 g/dl (13.0-16.5); Mean Corp Hgb Conc 33.1 g/gl (32-36); Mean Corpuscular Hgb 33.8 pg (27.0-32.0); Mean Corpuscular Volume 102.3 fL (80-94); Mean Platelet Vol. 11.2 fl (6.2-12.0); Platelet Count 75 K/mm3 (150-450); RBC Distribution Width CV 17.8 % (11.6-14.6); RBC Distribution Width SD 64.3 fl (35.1-43.9); Red Blood Count 2.63 M/mm3 (4.6-6.2); White Blood Count 5.5 K/mm3 (4.4-11.0)
[2018-07-09 14:34] LABS: Scan Indicated on CBC? Y/N NO
[2018-07-09 14:46] LABS: BUN 25 mg/dL (7-18); Creatinine, Serum 0.54 mg/dL (0.70-1.30); Glucose 68 mg/dL (74-106)
[2018-07-09 14:47] LABS: ALB/GLOB Ratio 0.9 RATIO (0.9-2.4); AST(SGOT) 37 U/L (15-37); Alanine Aminotransfer ALT/SGPT 114 U/L (16-61); Albumin, Serum 2.6 g/dL (3.2-5.0); Alkaline Phosphatase 334 U/L (45-117); Anion Gap 9 (5-15); BUN/Creat Ratio 46.5 RATIO (10-20); Calcium,Total 7.8 mg/dL (8.5-10.1); Chloride 108 mmol/L (98-107); EST Glomerular Filtration Rate 166 mL/min (>60); Est Glom Filt Rate - Afr Amer 201 mL/min (>60); Globulin 2.8 g/dL (2.2-4.2); Magnesium 1.9 mg/dL (1.6-2.6); Phosphorus 3.8 mg/dL (2.5-4.9); Prealbumin 26.7 mg/dL (20.0-40.0); Protein, Total 5.4 g/dL (6.4-8.2); Sodium Level 142 mmol/L (136-145)
== END 2018-07-12 23:59 ==
LOC: HHLAB 13:55
PROVIDERS: Family Provider Family Medicine; PCP Family Medicine; Referring Provider Specialist/Technologist, Other Surgical Technologist; Visit Provider Specialist/Technologist, Other Surgical Technologist
DX: C25.9 Malignant neoplasm of pancreas, unspecified (principal); E43 Unspecified severe protein-calorie malnutrition; G89.3 Neoplasm related pain (acute) (chronic); K21.9 Gastro-esophageal reflux disease without esophagitis; Z45.2 Encounter for adjustment and management of vascular access device; Z51.81 Encounter for therapeutic drug level monitoring; Z79.899 Other long term (current) drug therapy; Z79.891 Long term (current) use of opiate analgesic; Z93.1 Gastrostomy status
CPT/HCPCS: 80053; 83735; 84100; 84134; 85027

== ENCOUNTER → 2018-07-12 12:55 | Outpatient (CLI) | payer BC, SELFPAY ==
[2018-06-25 14:10] VITALS: BMI 23.5
[2018-07-12 13:42] LABS: Absolute Lymphocyte Count 1.15 X10^3/ul (0.83-4.51); Absolute Neutrophil Count 0.6 X10^3/uL (2.0-7.7); Basophil# 0.02 X10^3/uL; Basophil% 0.9 % (0-1); Eosinophil# 0.05 X10^3/uL; Eosinophils% 2.3 % (0-5); Hemoglobin 9.6 g/dl (13.0-16.5); Lymphocyte # 1.15 X10^3/ul (4.0); Lymphocyte % 52.5 % (19-41); Mean Corpuscular Hgb 32.9 pg (27.0-32.0); Mean Corpuscular Volume 102.7 fL (80-94); Mean Platelet Vol. 10.8 fl (6.2-12.0); Monocyte# 0.32 X10^3/uL; Monocyte% 14.6 % (0-10); Neutrophil # 0.64 X10^3/uL (2.7-7.7); Neutrophil % 29.2 % (47-70); Platelet Count 82 K/mm3 (150-450); RBC Distribution Width CV 18.4 % (11.6-14.6); Red Blood Count 2.92 M/mm3 (4.6-6.2); White Blood Count 2.2 K/mm3 (4.4-11.0)
[2018-07-12 14:06] LABS: Differential Indicated SCAN CRITERIA MET; POSITIVE COUNT NO; POSITIVE DIFFERENTIAL YES; POSITIVE MORPHOLOGY YES
[2018-07-12 14:07] LABS: Hypochromasia 1+; Macrocytosis RARE; Reactive Lymphocyte RARE
== END ==
PROVIDERS: Family Provider Family Medicine; PCP Family Medicine
DX: C25.9 Malignant neoplasm of pancreas, unspecified (principal)
CPT/HCPCS: 36415; 85025

== ENCOUNTER 2018-07-30 13:23 | Outpatient (RCR) | payer BC, SELFPAY ==
[2018-06-25 14:10] VITALS: BMI 23.5
[2018-07-16 13:12] LABS: Hematocrit 29.3 % (40-54); Hemoglobin 9.6 g/dl (13.0-16.5); Mean Corp Hgb Conc 32.8 g/gl (32-36); Mean Corpuscular Hgb 33.4 pg (27.0-32.0); Mean Corpuscular Volume 102.1 fL (80-94); Mean Platelet Vol. 10.5 fl (6.2-12.0); Platelet Count 105 K/mm3 (150-450); RBC Distribution Width SD 70.8 fl (35.1-43.9); Red Blood Count 2.87 M/mm3 (4.6-6.2); White Blood Count 5.7 K/mm3 (4.4-11.0)
[2018-07-16 13:13] LABS: Differential Indicated MANUAL DIFF; POSITIVE COUNT YES; POSITIVE DIFFERENTIAL NO; POSITIVE MORPHOLOGY YES
[2018-07-16 13:25] LABS: ALB/GLOB Ratio 0.8 RATIO (0.9-2.4); AST(SGOT) 32 U/L (15-37); Alanine Aminotransfer ALT/SGPT 68 U/L (16-61); Albumin, Serum 2.5 g/dL (3.2-5.0); Alkaline Phosphatase 355 U/L (45-117); Anion Gap 8 (5-15); BUN 21 mg/dL (7-18); BUN/Creat Ratio 37.1 RATIO (10-20); Chloride 108 mmol/L (98-107); Creatinine, Serum 0.57 mg/dL (0.70-1.30); EST Glomerular Filtration Rate 157 mL/min (>60); Est Glom Filt Rate - Afr Amer 189 mL/min (>60); Globulin 3.1 g/dL (2.2-4.2); Glucose 74 mg/dL (74-106); Magnesium 1.8 mg/dL (1.6-2.6); Phosphorus 3.3 mg/dL (2.5-4.9); Prealbumin 22.1 mg/dL (20.0-40.0); Protein, Total 5.6 g/dL (6.4-8.2); Sodium Level 142 mmol/L (136-145)
[2018-07-16 14:08] LABS: Lymphocyte 34 % (19-41); Metamyelocyte 1 % (0-1); Monocyte 8 % (0-10); Myelocyte 6 (0-0); Neutrophil-Band 3 % (0-5); Neutrophil-Segmented 47 % (47-70); Plasma Cell 1 %; Total Cells Counted 100 (MANUAL DIFF)
[2018-07-16 14:13] LABS: Anisocytosis 1+; Platelet Estimate MOD DEC (ADEQ)
[2018-07-16 14:15] LABS: Absolute Lymphocyte Count 1.94 X10^3/ul (0.83-4.51); Absolute Neutrophil Count 2.9 X10^3/uL (2.0-7.7); Lymphocyte # 1.94 X10^3/ul (4.0); Neutrophil # 2.86 X10^3/uL (2.7-7.7)
[2018-07-17 10:29] LABS: Pathologist Review Reviewed
[2018-07-30 13:38] LABS: Hematocrit 29.1 % (40-54); Hemoglobin 9.3 g/dl (13.0-16.5); Mean Corpuscular Hgb 32.9 pg (27.0-32.0); Mean Corpuscular Volume 102.8 fL (80-94); Mean Platelet Vol. 11.6 fl (6.2-12.0); Platelet Count 113 K/mm3 (150-450); RBC Distribution Width CV 16.2 % (11.6-14.6); RBC Distribution Width SD 59.1 fl (35.1-43.9); Red Blood Count 2.83 M/mm3 (4.6-6.2); White Blood Count 12.1 K/mm3 (4.4-11.0)
[2018-07-30 13:39] LABS: Scan Indicated on CBC? Y/N NO
[2018-07-30 13:56] LABS: ALB/GLOB Ratio 0.9 RATIO (0.9-2.4); AST(SGOT) 40 U/L (15-37); Alanine Aminotransfer ALT/SGPT 113 U/L (16-61); Albumin, Serum 2.5 g/dL (3.2-5.0); Alkaline Phosphatase 455 U/L (45-117); Anion Gap 7 (5-15); BUN 22 mg/dL (7-18); BUN/Creat Ratio 43.8 RATIO (10-20); Calcium,Total 7.8 mg/dL (8.5-10.1); Chloride 102 mmol/L (98-107); EST Glomerular Filtration Rate 180 mL/min (>60); Est Glom Filt Rate - Afr Amer 218 mL/min (>60); Globulin 2.8 g/dL (2.2-4.2); Glucose 94 mg/dL (74-106); Magnesium 2.2 mg/dL (1.6-2.6); Phosphorus 4.1 mg/dL (2.5-4.9); Potassium 3.5 mmol/L (3.5-5.1); Prealbumin 20.2 mg/dL (20.0-40.0); Protein, Total 5.3 g/dL (6.4-8.2); Sodium Level 142 mmol/L (136-145)
== END 2018-08-12 23:59 ==
LOC: HHLAB 13:23
PROVIDERS: Family Provider Family Medicine; PCP Family Medicine; Referring Provider Specialist/Technologist, Other Surgical Technologist; Visit Provider Specialist/Technologist, Other Surgical Technologist
DX: C25.9 Malignant neoplasm of pancreas, unspecified (principal); G89.3 Neoplasm related pain (acute) (chronic); E43 Unspecified severe protein-calorie malnutrition; K21.9 Gastro-esophageal reflux disease without esophagitis; Z45.2 Encounter for adjustment and management of vascular access device; Z51.81 Encounter for therapeutic drug level monitoring; Z79.899 Other long term (current) drug therapy; Z79.891 Long term (current) use of opiate analgesic; Z93.1 Gastrostomy status
CPT/HCPCS: 80053; 83735; 84100; 84134; 85025; 85027

== ENCOUNTER → 2018-08-13 16:51 | Outpatient (CLI) | payer BC, SELFPAY ==
[2018-08-13 16:51] VITALS: BMI 23.2
== END ==
PROVIDERS: Family Provider Family Medicine; PCP Family Medicine; Referring Provider Urology; Visit Provider Urology
DX: R30.0 Dysuria (principal)
CPT/HCPCS: 87077; 87086; 87088; 87186

== ENCOUNTER 2018-08-24 09:18 | Day surgery (SDC) | payer BC, SELFPAY ==
[2018-08-14 09:18] VITALS: BMI 23.2
[2018-08-23 12:50] VITALS: BMI 23.9
[2018-08-24] VITALS (7 sets, daily range): BP systolic 94–103; BP diastolic 55–64; PULSE 50–66; RESP 16–18; TEMP 36.3–36.5; O2SAT 98–100; BMI 24.0
[2018-08-24] MEDS: Cefazolin 2 GM in 0.9% Normal Saline 100 ML IV (11:03)
--- NOTE | 2018-08-24 11:29 | DCINST_ITS ---
Discharge Diet: Light diet - advance as tolerated Discharge Activity: Return to Normal Activity Instructions: Ureteral Stents Allergies/Adverse Reactions: Allergies No Known Allergies Allergy (Verified 08/24/18 10:03) Medications to take at Discharge Bromelains [Bromelain] 500 gm MC BID PRN 01/17/18 Methylsulfonylmethane [MSM] 1,000 mg PO BID 01/17/18 Mirtazapine [Remeron] 15 mg PO QHS 01/17/18 Ondansetron [Zofran Odt] 8 mg PO Q8H PRN PRN 01/17/18 Oxycodone [Oxyir] 5 mg PO Q6H PRN PRN 01/17/18 Probiotic 1 cap PO DAILY 01/17/18 Scopolamine [Transderm-Scop] 1.5 mg TD X1 PRN 01/17/18 Sucralfate [Carafate] 1 gm PO 4X/DAY 01/17/18 Dexamethasone [Decadron] 2 mg PO DAILY 07/18/18 Diphenoxylate HCl/Atropine [Diphenoxylate-Atrop 2.5-0.025] 2 ea PO Q6H 07/18/18 Hydromorphone HCl 2 mg PO Q6H PRN 07/18/18 Oxybutynin Chloride [Oxybutynin Chloride ER] 10 mg PO DAILY 07/18/18 Lorazepam [Ativan] 1 mg PO DAILY PRN PRN 08/06/18 Pregabalin [Lyrica] 75 mg PO BID 08/06/18 Promethazine HCl 12.5 mg PO Q6H PRN 08/06/18 Pantoprazole Sodium [Protonix] 40 mg PO BID 30 Days #60 tablet 08/14/18 Nitrofurantoin Monohyd/M-Cryst [Macrobid 100 mg Capsule] 100 mg PO BID #10 capsule 08/24/18 The following prescriptions were given: Nitrofurantoin Monohyd/M-Cryst [Macrobid 100 mg Capsule] 100 mg PO BID #10 capsule Primary Care Physician: Kleber Martin DO [Primary Care Provider] - Test Results: Test results from this visit will be discussed in further detail at your follow- up appointment, if applicable. Please Follow Up With: Lm Salcedo MD When: please call to make an appointment- 3-4 months
--- NOTE | 2018-08-24 11:32 | OP.PCM_ITS ---
Report of Operation Date of Procedure: 08/24/18 Pre-Operative Diagnosis: Pancreatic cancer and left hydronephrosis obstruction Post-Operative Diagnosis: Same Surgery/Procedure Performed:: Cystoscopy, left retrograde pyelogram, interpretation of fluoroscopic images, left stent placement. Description of Surgical Findings:: Indication 58-year-old male undergoing treatment for metastatic pancreatic cancer he has had a stent in place now for several months he is due for stent change is been having more frequency urgency pain or discomfort and the stent is due for a new change. 58-year-old male taken back to the operating room at the smooth induction of a MAC local he was placed in dorsolithotomy position the penis testicles were prepped and draped in usual sterile fashion went into the bladder with a 21 Mongolian rigid cystourethroscope and the entire length the urethra is normal the sphincter was normal the prostate at some mild enlargement of a mild high bladder neck, the trigone was normal I then identified the stent coming from the trigone on the left side grab the stent pulled out the meatus was able to advance a wire through the stent looked at the stent and it was a 7 Mongolian by 24 cm stent, I then backloaded the Pollack catheter over the wire performed a retrograde pyelogram could see the contrast filling the kidney pyelogram and then after this over the wire place a new stent 7 Mongolian by 24 cm stent placed the same size stent once stent was in good position pulled the wire the stent: The kidney bladder good position I drain the bladder patient anesthetic is being reversed he will see me back in a few months for checkup and another stent change. Type of Anesthesia:: Local MAC Drains: stent 7 fr x 24 cm - Admit VTE Documentation VTE Present on Admission: No VTE Mechan Device Prophylaxis: SCD's
== END 2018-08-24 13:50 | disposition home or self-care (01) ==
LOC: SDC 09:19 → AC 13:22
PROVIDERS: Family Provider Family Medicine; PCP Family Medicine; Referring Provider Urology; Visit Provider Urology
PROC: (CPT 52332; principal; 2018-08-24 11:00)
DX: C25.9 Malignant neoplasm of pancreas, unspecified (principal); C79.9 Secondary malignant neoplasm of unspecified site; N13.30 Unspecified hydronephrosis; R35.0 Frequency of micturition; R35.1 Nocturia; I80.209 Phlebitis and thrombophlebitis of unspecified deep vessels of unspecified lower extremity; I10 Essential (primary) hypertension; N40.0 Benign prostatic hyperplasia without lower urinary tract symptoms; K21.9 Gastro-esophageal reflux disease without esophagitis; F32.9 Major depressive disorder, single episode, unspecified; Z79.899 Other long term (current) drug therapy
CPT/HCPCS: 00910; 52332; 76000; J7120; A4216; C1769; C1874; J2405

== ENCOUNTER → 2018-08-27 16:06 | Outpatient (CLI) | payer BC, SELFPAY ==
[2018-08-06 08:52] VITALS: BMI 22.8
[2018-08-24 10:05] VITALS: BMI 24.0
--- NOTE | 2018-08-27 16:07 | CT_ITS ---
HISTORY: Metastatic pancreatic cancer EXAMINATION: CT Abdomen And Pelvis W/ Contrast TECHNIQUE: Helically acquired images were obtained of the abdomen and pelvis following IV contrast. A radiation dose optimization technique was used for this scan. IV Contrast dosage and agent: 100 Isovue 370 Oral contrast: Yes COMPARISON: CT chest 08/27/[address] abdomen and pelvis 04/06/2018 FINDINGS: Lower thorax: Small hiatal hernia with generalized esophageal dilatation which contains oral contrast. No pericardial effusion or pleural effusion. Gastrostomy tube in place. Nonspecific mural thickening of the posterior wall of the gastric body. Cholecystectomy surgical clips within gallbladder fossa. No biliary dilatation. Mild splenomegaly with the spleen measuring 14 cm in length and this is new compared to previous abdominal CT. No focal splenic lesion. The pancreas shows no gross enlargement and no pancreatic ductal dilatation is seen. As above, there is mural thickening of the posterior wall of the stomach and the adjacent lesser sac region bordering the pancreas is poorly defined. Both kidneys are normal in position. Left ureteral double pigtail stent remains in good position with the proximal stent coiled within the left renal pelvis and the distal stent within urinary bladder. Left renal pelviectasis with peripelvic fat stranding. Mild caliectasis in keeping with mild hydronephrosis. Delayed CT scan was not performed and is partly limits evaluation of the urinary tract bilateral benign-appearing renal cortical cysts. Mild dilatation of the proximal and distal left ureter. The mid left ureter appears nondilated. No hydronephrosis or hydroureter on the right. Adrenal glands are not enlarged. Abdominal aorta is atherosclerotic and normal in caliber. No ascites or free fluid. Redemonstration of mild lymph node enlargement and fat stranding within the left upper quadrant and left mid abdomen mesentery. This may reflect known metastatic pancreatic cancer. GI tract: No obstruction. Increase fluid within nondilated small and large bowel which may reflect ileus and/or diarrhea. Pelvis: The left ureteral double pigtail stent is in good position. Urinary bladder is not over distended. Tiny gas within the bladder lumen. Prostate gland is not enlarged. No free fluid. Bones: Left total hip prosthesis. No acute osseous abnormality seen. CT/Abdomen/Pelvis WITH Contrast IMPRESSION: 1. Mild splenomegaly, new compared to previous. 2. Nonspecific mural thickening of the posterior gastric wall and corresponding poor definition of the lesser sac region anterior to the pancreas. 3. No biliary or pancreatic ductal dilatation and no free fluid or acute disease identified. 4. Mild mesenteric lymph node enlargement and mesenteric fat stranding without significant change and this may be related to known metastatic pancreatic cancer. 5. The left ureteral stent remains in good position with residual mild left hydronephrosis. 6. Increased fluid within nondilated small and large bowel which may reflect ileus and/or diarrhea. Individualized dose optimization techniques were used for this CT. at 0139 Reported and signed by: Pietro Ochoa MD Electronically Signed: Pietro Ochoa, at 1:38 EDT Tel , Service support ,
--- NOTE | 2018-08-27 16:07 | CT_ITS ---
STUDY: CT CHEST WITH CONTRAST REASON FOR EXAM: Male, 58 years old. Metastatic pancreatic cancer RADIATION DOSAGE (If Supplied By Facility): CTDIvol = ( 12.14 ) mGy, DLP = ( 1207.10 ) mGycm TECHNIQUE: Transaxial imaging was performed following intravenous administration of 100 IV Isovue 370. Individualized dose optimization techniques were used for this CT. COMPARISON: April 06, 2018. FINDINGS: The lungs are normal. There is no demonstrated pleural abnormality. Normal heart and pericardium. Normal mediastinum. Normal hilar regions. Normal enhanced pulmonary arteries. Normal aorta arch and descending thoracic aorta. Dorsal spine demonstrates moderate spondylosis Mildly diffusely distended contrast-filled esophagus without evidence for obstructing lesion possibly due to reflux There is no demonstrated abnormality of the visualized upper abdomen. Previously noted reticulonodular changes in left lower lobe have resolved. CT/Chest WITH Contrast IMPRESSION: Mildly diffusely distended contrast-filled esophagus possibly due to reflux. No evidence for pulmonary metastasis hilar or mediastinal adenopathy. Electronically Signed: Yaakov Breaux MD at 21:40 EDT , Service support ,
== END ==
PROVIDERS: Family Provider Family Medicine; PCP Family Medicine; Referring Provider Nurse Practitioner Family; Visit Provider Nurse Practitioner Family
DX: C25.9 Malignant neoplasm of pancreas, unspecified (principal)
CPT/HCPCS: 71260; 74177; Q9967

== ENCOUNTER 2018-08-31 09:31 | Day surgery (SDC) | payer BC, SELFPAY ==
[2018-08-14 09:18] VITALS: BMI 23.2
[2018-08-24 10:05] VITALS: BMI 24.0
[2018-08-31] VITALS (8 sets, daily range): BP systolic 101–109; BP diastolic 54–72; PULSE 53–66; RESP 16–18; TEMP 36.4–37.1; O2SAT 95–100; BMI 23.3
[2018-08-31] MEDS: Cefazolin 2 GM in 0.9% Normal Saline 100 ML IV (11:04)
--- NOTE | 2018-08-31 11:20 | PCM.OPRPT ---
Problem List (1) Encounter for adjustment or management of vascular access device Status: Acute Report of Operation Date of Procedure: 08/31/18 Pre-Operative Diagnosis: This is a 45.2 vascular catheter fitting and adjustment Post-Operative Diagnosis: same Surgery/Procedure Performed:: Placement of a right IJ PowerPort Type of Anesthesia:: General Anesthesiologist: Margarito Blackburn Description of Procedure: Patient was brought into the operating room. Placed in the supine position. Patient had a significant amount of nausea and vomiting that we decided the best thing to do was a rapid sequence intubate the patient which he tolerated quite well. I ultrasound the neck identified the internal jugular vein marked the neck appropriately marked the chest appropriately. The neck and chest were then sterilely prepped and draped in the usual fashion. Seldinger's technique was used to gain access to the internal jugular vein guidewire was placed through the needle needle was removed fluoroscopy was used to confirm proper placement of the wire. I injected local of the chest. Incision was made and a pocket was created with use of electrocautery for the dual-lumen port. Dilator was placed over the guidewire then the dilator and sheath were placed over the guidewire removing the guidewire and dilator leaving the sheath and placed a dual-lumen catheter was then placed into the internal jugular vein sheath was removed and fluoroscopy was once again used to confirm proper length. The catheter flushed and irrigated well both lumens. I tunneled from the pocket created over the collarbone and into the neck bringing the catheter down I cut it to length placed the locking hub on the catheter placed the dual lumen port into the catheter. It flushed and irrigated well each of the size was flushed with 4 cc of hep flush. The port was then sutured into the pocket created with use of 2-0 Prolene sutures. Skin incisions were closed with deep dermal stitches of 3-0 Vicryl in a running 4-0 Monocryl Dermabond was applied sterile dressings were applied and the patient tolerated the procedure well. - Admit VTE Documentation VTE Present on Admission: No VTE Mechan Device Prophylaxis: SCD's VTE Pharm Prophylaxis ordered?: No Reason prophylaxis not ordered:: Treatment Not Indicated
--- NOTE | 2018-08-31 11:24 | DCINST_ITS ---
Discharge Diet: No Restrictions - Pain medication may cause nausea. You should typically eat light foods as you take your pain medication. Discharge Activity: May Shower - with the bandage in place 1-2 days after surgery. DO NOT SHOWER WHEN YOUR PORT IS ACCESSED. Additional Activity Instructions:: May not drive, work with heavy equipment, or sign legal documents for [address] if you are no longer taking narcotic pain medications. You may drive when you are no longer taking pain medications. Additional Dressing/Incision Instructions:: Leave the bandage on for 2-3 days. When you remove the bandage, leave the steri-strips intact until they fall off. Allergies/Adverse Reactions: Allergies No Known Allergies Allergy (Verified 08/31/18 09:52) Medications to take at Discharge Bromelains [Bromelain] 500 gm MC BID PRN 01/17/18 Methylsulfonylmethane [MSM] 1,000 mg PO BID 01/17/18 Mirtazapine [Remeron] 15 mg PO QHS 01/17/18 Ondansetron [Zofran Odt] 8 mg PO Q8H PRN PRN 01/17/18 Oxycodone [Oxyir] 5 mg PO Q6H PRN PRN 01/17/18 Probiotic 1 cap PO DAILY 01/17/18 Scopolamine [Transderm-Scop] 1.5 mg TD X1 PRN 01/17/18 Sucralfate [Carafate] 1 gm PO 4X/DAY 01/17/18 Dexamethasone [Decadron] 2 mg PO DAILY 07/18/18 Diphenoxylate HCl/Atropine [Diphenoxylate-Atrop 2.5-0.025] 2 ea PO Q6H 07/18/18 Hydromorphone HCl 2 mg PO Q6H PRN 07/18/18 Oxybutynin Chloride [Oxybutynin Chloride ER] 10 mg PO DAILY 07/18/18 Lorazepam [Ativan] 1 mg PO DAILY PRN PRN 08/06/18 Pregabalin [Lyrica] 75 mg PO BID 08/06/18 Promethazine HCl 12.5 mg PO Q6H PRN 08/06/18 Pantoprazole Sodium [Protonix] 40 mg PO BID 30 Days #60 tablet 08/14/18 Nitrofurantoin Monohyd/M-Cryst [Macrobid 100 mg Capsule] 100 mg PO BID #10 capsule 08/24/18 Primary Care Physician: Kleber Martin DO [Primary Care Provider] - Test Results: Test results from this visit will be discussed in further detail at your follow- up appointment, if applicable. Please Follow Up With: Mikael Gan MD - [phone] When: Please plan to follow up in 7 days in the office.
[2018-08-31] MEDS: BUPIVACAINE LIPOSOME/PF 20 ML VIAL OPERA.SITE (11:30)
--- NOTE | 2018-08-31 12:30 | RAD_ITS ---
STUDY: X-RAY CHEST REASON FOR EXAM: Male, 58 years old. Post port placement. TECHNIQUE: Single AP portable view of the chest. COMPARISON: Comparison is made with prior study dated April 06, 2018. FINDINGS: A right-sided portacatheter has been placed. The tip is at the junction of the superior vena cava and right atrium. Increased markings at the left lung base suggestive of left basilar atelectasis and/or infiltrate. Blunting of the left costophrenic angle. There is moderate cardiac enlargement. Normal mediastinum and fahad. Normal visualized pulmonary arteries. There is atherosclerotic calcification of the aortic arch with tortuosity. There are diffuse degenerative changes of the visualized thoracic spine. Normal visualized ribs, clavicles, and shoulders. There is no demonstrated abnormality of the visualized soft tissue structures of the upper abdomen. RAD/CXR for Line Placement IMPRESSION: Pleural parenchymal changes at the left lung base. Follow-up is recommended. Electronically Signed: Jewel Cabello, at 13:00 EDT , Service support ,
== END 2018-08-31 14:36 | disposition home or self-care (01) ==
LOC: SDC 09:32 → AC 09:33
PROVIDERS: Family Provider Family Medicine; PCP Family Medicine; Referring Provider Surgery; Visit Provider Surgery
PROC: (CPT 36561; principal; 2018-08-31 10:45)
DX: Z45.2 Encounter for adjustment and management of vascular access device (principal); F32.9 Major depressive disorder, single episode, unspecified; C25.9 Malignant neoplasm of pancreas, unspecified; N18.9 Chronic kidney disease, unspecified; Z86.718 Personal history of other venous thrombosis and embolism; K21.9 Gastro-esophageal reflux disease without esophagitis; Z79.899 Other long term (current) drug therapy; I12.9 Hypertensive chronic kidney disease with stage 1 through stage 4 chronic kidney disease, or unspecified chronic kidney disease; G25.81 Restless legs syndrome
CPT/HCPCS: 36561; 71045; 77001; J7120; A4216; C1788; J2405

== ENCOUNTER 2018-09-14 05:42 | Inpatient (IN) | payer BC, SELFPAY ==
[2018-09-03 08:50] VITALS: BMI 23.3
[2018-09-14] VITALS (15 sets, daily range): BP systolic 109–138; BP diastolic 54–90; PULSE 57–102; RESP 16–26; TEMP 36.8–37.6; O2SAT 93–99; BMI 22.4
--- NOTE | 2018-09-14 05:56 | EKG12_ITS ---
Test Reason : VOMITING Blood Pressure : / mmHG Vent. Rate : 075 BPM Atrial Rate : 075 BPM P-R Int : 168 ms QRS Dur : 100 ms QT Int : 420 ms P-R-T Axes : 085 -34 -15 degrees QTc Int : 469 ms Normal sinus rhythm Left axis deviation Incomplete right bundle branch block Nonspecific ST and T wave abnormality Confirmed by AKASH SIMMONS, MICHELE ([id number]), manager editorial ORLANDO CALIX ([id number]) on 09/18/2018 1:36:12 PM Referred By: MEGAN Confirmed By:MICHELE BUSTOS MD
--- NOTE | 2018-09-14 05:56 | CT_ITS ---
STUDY: CT ABDOMEN AND PELVIS WITHOUT CONTRAST REASON FOR EXAM: Male, 58 years old. Fever and nausea RADIATION DOSAGE (If Supplied By Facility): CTDIvol = ( 9.01 ) mGy, DLP = ( 481.53 ) mGycm TECHNIQUE: Transaxial images were obtained from the dome of the diaphragm to the symphysis pubis without oral contrast, and without intravenous contrast. Sagittal and coronal images were reconstructed. Individualized dose optimization techniques were used for this CT. COMPARISON: 08/27/2018 FINDINGS: The visualized lung bases are unremarkable. Mild cardiomegaly is noted Normal liver. There are surgical clips in the gallbladder fossa consistent with a prior cholecystectomy. There is mild splenomegaly. Normal pancreas. Normal bilateral adrenal glands. Exophytic mid pole right renal cyst, stable. Left ureteral stent is noted with increased left perinephric fat stranding and edema as well as increased left hydronephrosis and hydroureter with periureteral fat stranding and edema. PEG tube noted in the stomach. Continued abnormal appearance of the lesser curvature of the stomach. Normal small intestine. Normal colon. The appendix is visualized and appears normal. Normal abdominal aorta. Normal inferior vena cava. Development of small retroperitoneal lymph nodes as well as stable mesenteric lymph nodes Left ureteral stent terminates within the bladder. Bladder wall thickening circumferentially. Normal abdominal wall. There are diffuse degenerative changes of the visualized lumbar spine. CT/Abdomen/Pelvis without Cont IMPRESSION: As compared to exam from August 27, there appears to be increased left hydronephrosis with increased left hydroureter. Worsening left perinephric fat stranding as well as left periureteral fat stranding. Left ureteral stent is noted in place; unsure if there is concomitant infection currently. Remaining findings are stable Electronically Signed: Mikael Madden DO at 7:43 EDT Tel , Service support ,
--- NOTE | 2018-09-14 06:05 | RAD_ITS ---
HISTORY: patient dx with uti while traveling told to come to ER right away, pancreatic ca, fever, nausea EXAM:XR Chest 1 View portable COMPARISON: 08/31/2018 FINDINGS: Normal heart size. No vascular congestion, pleural effusion, or acute pulmonary infiltration. No pneumothorax. Right jugular permacath in place with the catheter tip in the region of the right atrium. Remote fracture of the mid left clavicle. RAD/Chest 1 View (Portable) IMPRESSION: No acute cardiopulmonary disease. at 0743 Reported and signed by: Pietro Ochoa MD Electronically Signed: Pietro Ochoa, at 7:42 EDT Tel , Service support ,
[2018-09-14] MEDS: 0.9% Normal Saline 1,000 ML 150 ML IV (06:17)
[2018-09-14 06:18] LABS: Absolute Lymphocyte Count 1.04 X10^3/ul (0.83-4.51); Absolute Neutrophil Count 7.7 X10^3/uL (2.0-7.7); Basophil# 0.03 X10^3/uL; Basophil% 0.3 % (0-1); Eosinophil# 0.02 X10^3/uL; Eosinophils% 0.2 % (0-5); Hematocrit 32.1 % (40-54); Hemoglobin 10.6 g/dl (13.0-16.5); Lymphocyte # 1.04 X10^3/ul (4.0); Lymphocyte % 10.7 % (19-41); Mean Corpuscular Hgb 32.6 pg (27.0-32.0); Mean Corpuscular Volume 98.8 fL (80-94); Mean Platelet Vol. 10.5 fl (6.2-12.0); Monocyte# 0.89 X10^3/uL; Monocyte% 9.1 % (0-10); Neutrophil # 7.68 X10^3/uL (2.7-7.7); Platelet Count 186 K/mm3 (150-450); RBC Distribution Width CV 18.4 % (11.6-14.6); RBC Distribution Width SD 63.5 fl (35.1-43.9); Red Blood Count 3.25 M/mm3 (4.6-6.2); White Blood Count 9.7 K/mm3 (4.4-11.0)
[2018-09-14] MEDS: Acetaminophen 325 MG Tablet 650 MG PO (06:21)
[2018-09-14] MEDS: Ondansetron 4 MG/2 ML Vial IV ×4 (06:22→20:49)
[2018-09-14 06:24] LABS: POSITIVE COUNT NO; POSITIVE DIFFERENTIAL NO; POSITIVE MORPHOLOGY NO
[2018-09-14] MEDS: Morphine 4 MG/ML Syringe IV ×4 (06:24→20:49)
[2018-09-14 06:25] LABS: International Normalized Ratio 1.1; Prothrombin Time (Protime)PT. 14.1 SECONDS (11.7-14.9)
[2018-09-14 06:26] LABS: Partial Thromboplast Time 35.5 Seconds (24.1-36.2)
[2018-09-14] MEDS: Ceftriaxone 1 GM/50 ML BAG IV (06:38)
[2018-09-14 06:45] LABS: ALB/GLOB Ratio 0.7 RATIO (0.9-2.4); AST(SGOT) 51 U/L (15-37); Alanine Aminotransfer ALT/SGPT 90 U/L (16-61); Albumin, Serum 2.6 g/dL (3.2-5.0); Alkaline Phosphatase 439 U/L (45-117); Anion Gap 10 (5-15); BUN 28 mg/dL (7-18); BUN/Creat Ratio 35.9 RATIO (10-20); Calcium,Total 8.3 mg/dL (8.5-10.1); Chloride 96 mmol/L (98-107); Creatinine, Serum 0.78 mg/dL (0.70-1.30); EST Glomerular Filtration Rate 108 mL/min (>60); Est Glom Filt Rate - Afr Amer 131 mL/min (>60); Estimated Creatinine Clearance 120.38 ml/min; Globulin 3.5 g/dL (2.2-4.2); Glucose 134 mg/dL (74-106); Lactic Acid 1.9 mmol/L (0.4-2.0); Potassium 2.7 mmol/L (3.5-5.1); Protein, Total 6.1 g/dL (6.4-8.2); Sodium Level 141 mmol/L (136-145)
[2018-09-14 06:58] LABS: Color, Urine Yellow (Yellow); Glucose, Dipstick Normal (Normal); Ketone-Dipstick 5 mg/dl (Negative); Leukocyte Esterase-Dipstick 500 /ul (Negative); Nitrite-Dipstick Positive (Negative); Occult Blood-Urine 250 /ul (Negative); Protein-Dipstick 100 mg/dl (Negative); Specific Gravity, Urine 1.025 (1.002-1.030); Urine Bilirubin Dipstick 1 mg/dL (Negative); Urine Clarity Turbid (Clear); Urine Urobilinogen 4 mg/dl (Normal)
[2018-09-14 07:02] LABS: Bacteria 2+ /hpf (None Seen); Mucous, Urine 2+ /hpf (<or=2+); Red Blood Cells-Urine 25-50 SEEN /hpf (0-5); White Blood Cells 50-100 SEEN /hpf (0-5)
[2018-09-14 07:03] LABS: Squamous Epithelial Cells - UA 0-5 SEEN /hpf (0-5)
--- NOTE | 2018-09-14 08:21 | ED.VISSUMM ---
- ER Visit Summary Date of Service: 09/14/18 Chief Complaint: UTI History of Present Illness: The patient is a 58 M with history of pancreatic cancer on chemotherapy, last treatment September 03. He has a history of a left ureteral stent that is changed every [address] Salcedo. Stent was last changed on August 24. Patient traveled to [place] to be evaluated for a clinical trial. While there he noted worsening nausea, vomiting, body aches, and fever. Urine was checked. Family received a phone call while on layover on the return trip home that he had a UTI and she go to the emergency room immediately when he arrives home. Patient came directly from the airport to the hospital. He is now complaining of left flank pain as well. He has not received any antibiotics. Physical Examination: Blood pressure is 117/86, temperature 99.7, heart rate 102, respiratory rate 26, pulse ox 97% on room air. Patient is a cachectic appearing gentleman who appears older than stated age. He is in no acute distress. Head and neck examination grossly unremarkable. Heart is regular rate and rhythm. Lung sounds are clear. Port is noted in the right anterior chest wall. Abdomen is soft and nontender. Back examination does reveal mild left CVA tenderness. Test Results: EKG is sinus at 75 with incomplete right bundle. No acute ST change. Portable chest x-ray shows no acute disease. CBC was normal white count and differential. Hemoglobin is 10.6. Chemistry studies were potassium of 2.7, chloride 96. Glucose is 134 and BUN is 28. LFTs revealed total bili of 2.0, alk phos 439, ALT 90, AST 51. Coags are normal. Urinalysis reveals 500 leukocyte esterase and positive nitrites. 50-100 white cells are noted, 25-50 RBCs, 2+ bacteria. Lactate is 1.9. CT the flank shows increased left hydronephrosis and hydroureter. Worsening left perinephric fat stranding is noted. Left ureteral stent in place. Emergency Department Course and Treatment: Patient received IV fluids, Rocephin, Tylenol, morphine, and Zofran. Upon return of labs 40 mEq of potassium chloride is ordered. On repeat evaluation patient is resting comfortably. He states he does feel improved. My initial concern was that the ureteral stent would need to be replaced due to the acute infection. I spoke with Dr. Ferguson, urologist with [facility] at [facility]. He states that the stent does not in fact need to be changed out. He states he does treat the infection and removing the stent at this point may make things worse. This was relayed to the patient and . I will speak with the hospitalist regarding admission. Treatment Plan: [] Disposition: Admit Impression: 1. Left pyelonephritis 2. Hypokalemia 3. Pancreatic cancer with peritoneal carcinomatosis This note was generated with [employer] dictation software. It may contain incorrect words, spelling, and punctuation that were not noted in review of the chart prior to signing ED Disposition - Plan for ED Patient: Referrals: Kleber Martin DO [Primary Care Provider] -
--- NOTE | 2018-09-14 08:43 | NURSING ---
DR MIMI MARTIN
--- NOTE | 2018-09-14 09:28 | NURSING ---
DR ARRIAGA FOR DR GUZMAN
--- NOTE | 2018-09-14 09:32 | NURSING ---
MED SURG TERELETSKY PYELNEPHRITIS, HYPOKALEMIA
--- NOTE | 2018-09-14 09:36 | NURSING ---
DR ARRIAGA IN ER
--- NOTE | 2018-09-14 12:00 | CON.PCM_ITS ---
Problem List (1) Pyelonephritis Status: Acute Reason for Consult: pyelo Consulted by: Dr. Chang History of Present Illness: The patient is a 58 year old M with pancreatic cancer with peritoneal carcinomatosis, complicated by gastric obstruction requiring TPN and by L hydronephrosis requiring stent placement. Stent changed 08/[address] Salcedo. R chest port placed 08/31. Was in [place], [place] for possible clinical trial, developed several days of L aching severe flank pain with some nausea, chills, cloudy urine. Sx similar to prior episode of pyelo. Ucx sent, was called at airport to say ucx (+) for CoNS. Was given a week of nitrofurantoin around time of stent change. Told to go to ED, given dose of ceftriaxone. Now admitted. Full ROS performed and neg except as noted above. - Medical History Past Medical History (Chronic Problems): Chronic Problems (Last Reviewed 09/03/18 @ 08:49 by Nicolette Hylton) GI (gastrointestinal bleed) (Chronic) Pancreas cancer (Chronic) Peritoneal carcinomatosis (Chronic) Hematuria (Chronic) While on anticoagulants DVT of upper extremity (deep vein thrombosis) (Chronic) January 2018 complicating PICC line Hydronephrosis, left (Chronic) Status post stent May 2018 Allergies/Adverse Reactions: Allergies latex Allergy (Verified 09/14/18 05:43) Rash Home Medications: Ambulatory Orders Medication Instructions Recorded Bromelains [Bromelain] 500 gm MC BID PRN 01/17/18 Ondansetron [Zofran Odt] 8 mg PO Q8H PRN PRN 01/17/18 Oxycodone [Oxyir] 5 mg PO Q6H PRN PRN 01/17/18 Dexamethasone [Decadron] 2 mg PO DAILY 07/18/18 Diphenoxylate HCl/Atropine 2 ea PO Q6H 07/18/18 [Diphenoxylate-Atrop 2.5-0.025] Hydromorphone HCl 2 mg PO Q6H PRN 07/18/18 Oxybutynin Chloride [Oxybutynin 10 mg PO DAILY 07/18/18 Chloride ER] Lorazepam [Ativan] 1 mg PO DAILY PRN PRN 08/06/18 Pregabalin [Lyrica] 75 mg PO BID 08/06/18 Promethazine HCl 12.5 mg PO Q6H PRN 08/06/18 Pantoprazole Sodium [Protonix] 40 mg PO BID 30 Days #60 tablet 08/14/18 Scopolamine [Transderm-Scop] 1.5 mg TD X1 30 Days #10 patch.td.3 09/03/18 Vital Signs Temp Pulse Resp BP Pulse Ox 98.3 F 78 18 109/60 98 09/14/18 10:54 09/14/18 10:54 09/14/18 10:54 09/14/18 10:54 09/14/18 10:54 Oxygen Flow Rate (L/min) 2 Oxygen Delivery Method Room Air Weight: 83.461 kg Body Mass Index (BMI) 22.4 Laboratory Tests Past 24 Hrs 09/14/18 09/14/18 09/14/18 06:08 06:08 06:08 WBC 9.7 RBC 3.25 L Hgb 10.6 L Hct 32.1 L MCV 98.8 H MCH 32.6 H MCHC 33.0 RDW 18.4 H RDW Differential 63.5 H Plt Count 186 MPV 10.5 Immature Gran % (Auto) 0.700 Neut % (Auto) 79.0 H Lymph % (Auto) 10.[address] [place] % (Auto) 9.1 Eos % (Auto) 0.2 Baso % (Auto) 0.3 Absolute Neuts (auto) 7.7 Absolute Lymphs (auto) 1.04 Total Counted Not Reportable PT 14.1 INR 1.1 APTT 35.5 Sodium 141 Potassium 2.7 L* Chloride 96 L Carbon Dioxide 35.0 H Anion Gap 10 BUN 28 H Creatinine 0.78 Estim Creat Clear Calc 120.38 Est GFR (MDRD) Af Amer 131 Est GFR (MDRD) Non-Af 108 BUN/Creatinine Ratio 35.9 H Glucose 134 H Lactic Acid Calcium 8.3 L Total Bilirubin 2.00 H AST 51 H ALT 90 H Alkaline Phosphatase 439 H Total Protein 6.1 L Albumin 2.6 L Globulin 3.5 Albumin/Globulin Ratio 0.7 L Urine Color Urine Clarity Urine pH Ur Specific [place] Urine Protein Urine Glucose (UA) Urine Ketones Urine Occult Blood Urine Nitrite Urine Bilirubin Urine Urobilinogen Ur Leukocyte Esterase Urine RBC Urine WBC Ur Squamous Epith Cells Urine Bacteria Urine Mucus 09/14/18 09/14/18 06:08 06:40 WBC RBC Hgb Hct MCV MCH MCHC RDW RDW Differential Plt Count MPV Immature Gran % (Auto) Neut % (Auto) Lymph % (Auto) [place] % (Auto) Eos % (Auto) Baso % (Auto) Absolute Neuts (auto) Absolute Lymphs (auto) Total Counted PT INR APTT Sodium Potassium Chloride Carbon Dioxide Anion Gap BUN Creatinine Estim Creat Clear Calc Est GFR (MDRD) Af Amer Est GFR (MDRD) Non-Af BUN/Creatinine Ratio Glucose Lactic Acid 1.9 Calcium Total Bilirubin AST ALT Alkaline Phosphatase Total Protein Albumin Globulin Albumin/Globulin Ratio Urine Color Yellow Urine Clarity Turbid Urine pH 5.0 Ur Specific [place] 1.025 Urine Protein 100 H Urine Glucose (UA) Normal Urine Ketones 5 H Urine Occult Blood 250 H Urine Nitrite Positive H Urine Bilirubin 1 H Urine Urobilinogen 4 H Ur Leukocyte Esterase 500 H Urine RBC 25-50 SEEN Urine WBC 50-100 SEEN Ur Squamous Epith Cells 0-5 SEEN Urine Bacteria 2+ Urine Mucus 2+ - Other Studies Radiology: [] reviewed Other Studies: [] Route of nutrition/ use of supplements: [] Nutritional Intake: [] IV Site: [] Gandhi Catheter: [] - Physical Exam General: - - ill appearing HEENT: Atraumatic, PERRLA, EOMI Neck: Supple, No Nodes Lungs: Clear to auscultation, Normal air movement Cardiovascular: Regular rate, Regular Rhythm Abdomen: Soft, Non Tender, Non-Distended, - - G tube in place. No L flank pain. Extremities: No edema Skin: No rashes IV Site: Central Line, without redness Musculoskeletal: No Tenderness to Palpation of Joints or Extremities Neurological: Cranial nerves II-XII grossly intact - Assessment/Plan Antibiotics: [] Assessment/Plan: [] L pyelonephritis - inflammation on UA, L flank pain, nausea. Recent stent change by Dr. Salcedo. Ucx with CoNS from [place], cx pending here. Will start iv vanc. Will follow, thank you, d/w Dr. Chang.
[2018-09-14] MEDS: Potassium Chloride 10mEq/100mL 10 MEQ/100 ML IV.SOLN. 100 MEQ IV BOLUS ×2 (12:11→16:28)
[2018-09-14] MEDS: 0.9% NaCl VAD Flush 10 ML IV ×4 (13:18→20:50)
--- NOTE | 2018-09-14 13:40 | RAD_ITS ---
CLINICAL HISTORY: Male, 58 years old. Nausea and vomiting. Pancreatic cancer. PROCEDURE: Limited and directed fluoroscopic contrast enhanced evaluation of the stomach via in place PEG tube. SEDATION: None. FLUOROSCOPY TIME (if supplied): (3:09) minutes/seconds TECHNIQUE: Approximately 120 cc of water-soluble contrast was gently instilled into the PEG tube. The PEG tube enters the stomach at the region of the lower body/gastric outlet. No contrast exited the stomach after approximately 5 minutes. Additionally, there is evidence of irregular extrinsic mass effect upon the greater curve of the body of the stomach seen on multiple fluoroscopic spot images. RAD/Upper GI Series Only IMPRESSION: Well-positioned PEG tube. Complete gastric outlet obstruction. Extrinsic mass effect upon the body of the greater curvature of the stomach may represent a manifestation of patient's primary pancreatic neoplasm. Consider cross-sectional imaging. Electronically Signed: Jakub Briseno MD at 15:22 EDT , Service support ,
--- NOTE | 2018-09-14 16:57 | PCM.RX.CS ---
Consult Pharmacy has been consulted to manage selected antiobiotic: Vancomycin Type of Consult: New start Prior Doses of Antibiotics Received/Current Regimen: Vancomycin 25mg/kg loading dose = 2000mg x1 given 09/14/18 at 1600 Labs: Sodium 141 mmol/L (136-145) 09/14/18 06:08 Potassium 2.7 mmol/L (3.5-5.1) L* 09/14/18 06:08 Chloride 96 mmol/L (98-107) L 09/14/18 06:08 Carbon Dioxide 35.0 mmol/L (21.0-32.0) H 09/14/18 06:08 Anion Gap 10 (5-15) 09/14/18 06:08 BUN 28 mg/dL (7-18) H 09/14/18 06:08 Creatinine 0.78 mg/dL (0.70-1.30) 09/14/18 06:08 Est GFR (MDRD) Af Amer 131 mL/min (>60) 09/14/18 06:08 Est GFR (MDRD) Non-Af 108 mL/min (>60) 09/14/18 06:08 BUN/Creatinine Ratio 35.9 RATIO (10-20) H 09/14/18 06:08 Glucose 134 mg/dL (74-106) H 09/14/18 06:08 Weight used for dosin kg Estimated Creatinine Clearance: 120ml/min Goal Trough: 10-15 mcg/mL Pharmacy Plan for Drug Dosing: Goal trough for the pt is 10-15. Pt is a 58 year old male, 76 inches and 84kg. He did receive a 25mg/kg loading dose. Recommend Vancomycin 1250mg IV q12h starting 09/15/18 at 0400 (12 hours after the loading dose). Trough will be drawn on 09/16/18 at 1530. Pharmacy Service will continue to monitor and adjust dosing as required. Follow-Up Labs: Trough Vancomycin - 09/16/18 at 1530
--- NOTE | 2018-09-14 18:25 | PCM.HP.STD ---
Problem List (1) Pyelonephritis, acute Status: Acute History of Present Illness Date of Admission: 09/14/18 Chief Complaint: Pyelonephritis The patient is a 58 year old M was seen in the emergency room today after he was instructed to seek medical attention after having a urinalysis collected and [place] yesterday which indicated an acute urinary tract infection with staph hemolyticus. No sensitivity was performed on the organism unfortunately. Patient was in [place] due to the fact he was seeking an opinion about taking experimental chemotherapy for stage IV pancreatic cancer which she has had for approximately a year. Patient sees an oncologist in [place] () and is still receiving chemotherapy-he is due to have his next chemotherapy dose this Monday. Patient complained of urinary urgency and frequency to this examiner, he denied any chills or fever. Patient did confirm is having chronic nausea and emesis, he has a G-tube which is been inserted for several months and it is to drainage, he does not use this tube for enteral feeding. Patient receives chronic TPN from [facility] in [place] this is already set up and the patient receives TPN at home. Patient states that he had an EGD performed approximately 2 months ago and was told he had no gastric outlet obstruction. Lab was obtained in the emergency room which showed a normal white blood cell count at 9.7, hemoglobin was 10.6, platelet count was 186,000. Patient's potassium was 2.7, BUN was elevated at 28, bilirubin was elevated at 2, AST was elevated at 51, ALT was elevated at 90, alkaline phosphatase was elevated at 439. Patient's UA in the emergency room showed 25-50 RBCs, 50-100 WBCs, positive nitrite, and leukocyte esterase of 500. Patient's temperature was 99.7, CT of the abdomen revealed increased left hydronephrosis with increased left hydroureter, there was worsening left perinephric fat stranding as well as left very ureteral fat stranding. Left ureteral stent was noted to be present. Patient was given IV Rocephin in the emergency room, he will be admitted to [place] [address] for acute pyelonephritis, infectious diseases will see the patient. Past Medical History Past Medical History (Chronic Problems): Chronic Problems (Last Reviewed 09/03/18 @ 08:49 by Nicolette Hylton) GI (gastrointestinal bleed) (Chronic) Pancreas cancer (Chronic) Peritoneal carcinomatosis (Chronic) Hematuria (Chronic) While on anticoagulants DVT of upper extremity (deep vein thrombosis) (Chronic) January 2018 complicating PICC line Hydronephrosis, left (Chronic) Status post stent May 2018 Cancer-related pain (Chronic) Gastrostomy in place (Chronic) Medical History: Medical History (Last Reviewed 09/03/18 @ 08:49 by Nicolette Hylton) PORT PLACEMENT 08-31-18 Pancreas cancer C25.9 left hydronephrosis stent placement 2018 peg tube placement Allergies latex Allergy (Verified 09/14/18 05:43) Rash Home Medications: Ambulatory Orders Medication Instructions Recorded Bromelains [Bromelain] 500 gm MC BID PRN 01/17/18 Ondansetron [Zofran Odt] 8 mg PO Q8H PRN PRN 01/17/18 Oxycodone [Oxyir] 5 mg PO Q6H PRN PRN 01/17/18 Dexamethasone [Decadron] 2 mg PO DAILY 07/18/18 Diphenoxylate HCl/Atropine 2 ea PO Q6H 07/18/18 [Diphenoxylate-Atrop 2.5-0.025] Hydromorphone HCl 2 mg PO Q6H PRN 07/18/18 Oxybutynin Chloride [Oxybutynin 10 mg PO DAILY 07/18/18 Chloride ER] Lorazepam [Ativan] 1 mg PO DAILY PRN PRN 08/06/18 Pregabalin [Lyrica] 75 mg PO BID 08/06/18 Promethazine HCl 12.5 mg PO Q6H PRN 08/06/18 Pantoprazole Sodium [Protonix] 40 mg PO BID 30 Days #60 tablet 08/14/18 Scopolamine [Transderm-Scop] 1.5 mg TD X1 30 Days #10 patch.td.3 09/03/18 Surgical History: Surgical History (Last Reviewed 09/03/18 @ 08:49 by Nicolette Hylton) History of hip replacement Z96.649 1994 left hip Hx of cholecystectomy Z90.49 2016 Surgical History: - - PEG tube, Mediport Psychiatric History: No pertinent psych hx Lives: Spouse/ Significant Other Smoking Status: Never smoker Tobacco Use: Non-smoker Alcohol: None Drugs: None - *Family History Paternal Family History: Family History (Last Reviewed 09/03/18 @ 08:49 by Nicolette Hylton) Father Heart disease Diabetes Sister Breast cancer History Items: No pertinent history Maternal Family History: Family History (Last Reviewed 09/03/18 @ 08:49 by Nicolette Hylton) Father Heart disease Diabetes Sister Breast cancer History Items: No pertinent history Review of Systems Constitutional: Denies: Anorexia, Chills, Fever, Night Sweats, Malaise, Weakness, Weight Change, Fatigue Eyes: Denies: Cataracts, Conjunctivae Inflammation, Double vision, Drainage HEENT: Denies: Difficulty Swallowing, Dysphasia, Ear Pain, Eye Pain, Hearing Changes, Nasal bleeding, Nasal Congestion, Post Nasal Drip Cardiovascular: Denies: Chest Pain, Claudication, Chest Pressure, Chest Tightness, Edema, Heaviness, Palpitations Respiratory: Denies: Cough, Hemoptysis, Pleuritic Pain, Shortness of Breath, Shortness of breath at rest, Shortness of breath upon exertion Gastrointestinal: Reports: Nausea, Vomiting. Denies: Abdominal Pain, Constipation, Diarrhea, Hematemesis, Hematochezia, Melena Genitourinary: Reports: Frequency, Urgency. Denies: Dysuria, Hematuria, Hesitancy, Nocturia Musculoskeletal: Denies: Foot Pain, Hand Pain, Joint Pain, Joint stiffness, Joint swelling, Joint Tenderness, Leg Pain Skin: Denies: Dryness, Jaundice, Pruritis, Rash Neurological: Denies: Blurred vision, Double vision, Change in Speech, Slurred speech, Difficulty swallowing, Focal weakness, Headaches, Incoordination, Numbness, Tingling Psychiatric: Denies: Anxiety, Depression, Homicidal Ideations, Suicidal Ideations Endocrine: Denies: Change in Body Habitus, Heat/ Cold Intolerance, Polydipsia, Polyuria Hematologic/ Lymphatic: Denies: Adenopathy, Anemia, Easy Bruising, Easy Bleeding, Petechiae, Purpura VTE Information - Inpt Only VTE Present on Admission: No VTE Mechan Device Prophylaxis: None VTE Pharm Prophylaxis ordered?: Yes Patient Problems: Active and Suspected Problems (Last Reviewed 09/03/18 @ 08:49 by Nicolette Hylton) Pyelonephritis (Acute) Pyelonephritis, acute (Acute) - Physical Exam General: Alert, Oriented x3, Cooperative, No apparent distress, - - Patient appears frail and cachectic HEENT: Atraumatic, PERRLA, EOMI, Normocephalic Oral: Moist Mucosa Neck: Supple, No JVD, Negative Carotid Bruits, No Nuchal Rigidity, Trachea Midline, Thyroid Normal Size and Texture Lungs: Clear to auscultation, Normal air movement, No rhonchi, No wheeze, No rales Cardiovascular: Regular rate, Regular Rhythm, Normal S1, Normal S2, No murmurs, No Ectopic Activity, PMI Normal, No rub noted, No Gallop Abdomen: Bowel Sounds Present, Soft, Non Tender, Non-Distended, - - G-tube in place Extremities: No clubbing, No cyanosis, No edema, Capillary Refill Less than 3 Seconds Skin: No rashes, No breakdown Musculoskeletal: Cachexia Neurological: Cranial nerves II-XII grossly intact, Neuro grossly intact, Coordination normal Psych/Mental Status: Normal Affect, Appropriate, Alert and oriented to time, place, person, mood and affect Vital Signs Temp Pulse Resp BP Pulse Ox 98.3 F 57 L 16 116/62 95 09/14/18 16:19 09/14/18 16:48 09/14/18 16:19 09/14/18 16:19 09/14/18 16:19 Oxygen Flow Rate (L/min) 2 Oxygen Delivery Method Room Air Weight: 83.461 kg Body Mass Index (BMI) 22.4 Intake and Output for Last 24 Hours 09/12/18 09/13/18 09/14/18 23:59 23:59 23:59 Intake Total 613 / 613 Output Total 250 / 250 Balance 363 / 363 Laboratory Tests Past 24 Hrs 09/14/18 09/14/18 09/14/18 06:08 06:08 06:08 WBC 9.7 RBC 3.25 L Hgb 10.6 L Hct 32.1 L MCV 98.8 H MCH 32.6 H MCHC 33.0 RDW 18.4 H RDW Differential 63.5 H Plt Count 186 MPV 10.5 Immature Gran % (Auto) 0.700 Neut % (Auto) 79.0 H Lymph % (Auto) 10.7 L [place] % (Auto) 9.1 Eos % (Auto) 0.2 Baso % (Auto) 0.3 Absolute Neuts (auto) 7.7 Absolute Lymphs (auto) 1.04 Total Counted Not Reportable PT 14.1 INR 1.1 APTT 35.5 Sodium 141 Potassium 2.7 L* Chloride 96 L Carbon Dioxide 35.0 H Anion Gap 10 BUN 28 H Creatinine 0.78 Estim Creat Clear Calc 120.38 Est GFR (MDRD) Af Amer 131 Est GFR (MDRD) Non-Af 108 BUN/Creatinine Ratio 35.9 H Glucose 134 H Lactic Acid Calcium 8.3 L Total Bilirubin 2.00 H AST 51 H ALT 90 H Alkaline Phosphatase 439 H Total Protein 6.1 L Albumin 2.6 L Globulin 3.5 Albumin/Globulin Ratio 0.7 L Urine Color Urine Clarity Urine pH Ur Specific [place] Urine Protein Urine Glucose (UA) Urine Ketones Urine Occult Blood Urine Nitrite Urine Bilirubin Urine Urobilinogen Ur Leukocyte Esterase Urine RBC Urine WBC Ur Squamous Epith Cells Urine Bacteria Urine Mucus 09/14/18 09/14/18 06:08 06:40 WBC RBC Hgb Hct MCV MCH MCHC RDW RDW Differential Plt Count MPV Immature Gran % (Auto) Neut % (Auto) Lymph % (Auto) [place] % (Auto) Eos % (Auto) Baso % (Auto) Absolute Neuts (auto) Absolute Lymphs (auto) Total Counted PT INR APTT Sodium Potassium Chloride Carbon Dioxide Anion Gap BUN Creatinine Estim Creat Clear Calc Est GFR (MDRD) Af Amer Est GFR (MDRD) Non-Af BUN/Creatinine Ratio Glucose Lactic Acid 1.9 Calcium Total Bilirubin AST ALT Alkaline Phosphatase Total Protein Albumin Globulin Albumin/Globulin Ratio Urine Color Yellow Urine Clarity Turbid Urine pH 5.0 Ur Specific [place] 1.025 Urine Protein 100 H Urine Glucose (UA) Normal Urine Ketones 5 H Urine Occult Blood 250 H Urine Nitrite Positive H Urine Bilirubin 1 H Urine Urobilinogen 4 H Ur Leukocyte Esterase 500 H Urine RBC 25-50 SEEN Urine WBC 50-100 SEEN Ur Squamous Epith Cells 0-5 SEEN Urine Bacteria 2+ Urine Mucus 2+ Assessment/Plan All Active Problems (Last Reviewed 09/03/18 @ 08:49 by Nicolette Hylton) Ureteral obstruction, left (Resolved) CINV (chemotherapy-induced nausea and vomiting) (Resolved) Hypokalemia (Acute) Encounter for adjustment or management of vascular access device (Acute) Pyelonephritis (Acute) Pyelonephritis, acute (Acute) #1 acute pyelonephritis-secondary to staph hemolyticus-patient will be admitted to [facility], he will be seen by infectious diseases #2 stage IV pancreatic cancer #3 hypokalemia-acute on chronic, patient will get IV potassium chloride, labs will be rechecked #4 nausea and vomiting-probably secondary to gastric outlet obstruction, I will have general surgery see the patient, patient has a G-tube with chronic drainage device. Patient may need insertion of a jejunostomy tube in the near future, in the meantime, patient will continue with TPN #5 chronic peripheral neuropathy secondary to chemotherapy for pancreatic cancer Code Visit Inpatient E&M: 06735 Init Hosp L3
[2018-09-14] MEDS: Pantoprazole Sodium 40 MG Tablet PO (21:37)
[2018-09-14] MEDS: Pregabalin 75 MG Capsule PO (21:38)
[2018-09-15] VITALS (11 sets, daily range): BP systolic 99–102; BP diastolic 51–57; PULSE 48–80; RESP 16–18; TEMP 36.4–37.3; O2SAT 94–97
[2018-09-15] MEDS: 0.9% NaCl VAD Flush 10 ML IV ×7 (00:45→22:27)
[2018-09-15] MEDS: Ondansetron 4 MG/2 ML Vial IV ×6 (00:46→22:27)
[2018-09-15] MEDS: Morphine 4 MG/ML Syringe IV ×6 (00:46→22:27)
[2018-09-15 07:44] LABS: BUN 24 mg/dL (7-18); EST Glomerular Filtration Rate 180 mL/min (>60); Estimated Creatinine Clearance 187.79 ml/min; Glucose 103 mg/dL (74-106)
[2018-09-15 07:45] LABS: Anion Gap 4 (5-15); BUN/Creat Ratio 47.8 RATIO (10-20); Calcium,Total 7.5 mg/dL (8.5-10.1); Chloride 104 mmol/L (98-107); Est Glom Filt Rate - Afr Amer 217 mL/min (>60); Potassium 3.3 mmol/L (3.5-5.1); Sodium Level 143 mmol/L (136-145)
[2018-09-15 08:22] LABS: Absolute Lymphocyte Count 0.91 X10^3/ul (0.83-4.51); Absolute Neutrophil Count 2.4 X10^3/uL (2.0-7.7); Basophil# 0.01 X10^3/uL; Basophil% 0.3 % (0-1); Eosinophil# 0.08 X10^3/uL; Hematocrit 25.4 % (40-54); Hemoglobin 8.3 g/dl (13.0-16.5); Lymphocyte # 0.91 X10^3/ul (4.0); Lymphocyte % 22.9 % (19-41); Mean Corp Hgb Conc 32.7 g/gl (32-36); Mean Corpuscular Hgb 32.8 pg (27.0-32.0); Mean Corpuscular Volume 100.4 fL (80-94); Mean Platelet Vol. 11.3 fl (6.2-12.0); Monocyte# 0.56 X10^3/uL; Monocyte% 14.1 % (0-10); Neutrophil % 60.2 % (47-70); Platelet Count 128 K/mm3 (150-450); RBC Distribution Width CV 18.2 % (11.6-14.6); RBC Distribution Width SD 67.1 fl (35.1-43.9); Red Blood Count 2.53 M/mm3 (4.6-6.2)
[2018-09-15 08:34] LABS: Differential Indicated SCAN CRITERIA MET; POSITIVE COUNT NO; POSITIVE DIFFERENTIAL NO; POSITIVE MORPHOLOGY YES
[2018-09-15 08:58] LABS: Anisocytosis 1+; Hypochromasia 1+
[2018-09-15] MEDS: Pregabalin 75 MG Capsule PO ×2 (09:31→22:26)
[2018-09-15] MEDS: Pantoprazole Sodium 40 MG Tablet PO ×2 (09:31→22:26)
[2018-09-15] MEDS: Scopolamine 1mg/72hr Patch 1 PATCH TD (09:34)
[2018-09-15] MEDS: Potassium Chloride 10mEq/100mL 10 MEQ/100 ML IV.SOLN. 100 MEQ IV BOLUS ×3 (09:35→11:42)
[2018-09-15] MEDS: Enoxaparin 40 MG/0.4 ML Syringe SC (11:40)
--- NOTE | 2018-09-15 13:06 | CASEMGMT ---
RN CM Assessment Introduced role of RN CM to patient.? Patient is alert, oriented and able?to participate in RN CM Assessment. ?Care providers, pharmacy, and demographics verified. Presentation: H/o Pancreatic CA on Chemo, Traveled to [place] to be evaluated for Clinical Trial & while there had worsening of N/V, body aches, fever. Had Urine tested and called stating +UTI and to go to ER, C/o Left Flank Pain. Admit Dx: Hypokalemia, Cystitis Re-Admit: No Barriers/Issues: None. Used to see Onc Dr Mcgee in [place] but has since transferred here. PCP: Kleber Martin Specialists: Uro- Dr Salcedo, ONC- Dr May, Gen surg- Dr Gan Preferred Pharmacy: [facility] Insurance: [employer] Rx Benefit: Yes? ?LNOK: Ruby Hoskins LW/HPOA: Yes both, states HPOA Living Arrangements:? Lives with in a SS home, 3 steps to enter. ADL?s: Independent with ambulation and ADL's Transportation: Patient drives, to transport on DC DME: TPN and Infusion Equipment- [facility]. Denies any other DME. HHC: Past in [place] SNF: None Goal: Home, IV ABX- Patient states does not have a Preference for Infusion Companies, agrees to one In Network. DC PLAN: Home with IV ABX, Tentative DC for Monday. SEA Brewer
--- NOTE | 2018-09-15 13:18 | CASEMGMT ---
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 SEA Brewer Original Note: RN CM Assessment Introduced role of RN CM to patient.? Patient is alert, oriented and able?to participate in RN CM Assessment. ?Care providers, pharmacy, and demographics verified. Presentation: H/o Pancreatic CA on Chemo, Traveled to [place] to be evaluated for Clinical Trial & while there had worsening of N/V, body aches, fever. Had Urine tested and called stating +UTI and to go to ER, C/o Left Flank Pain. Admit Dx: Hypokalemia, Cystitis Re-Admit: No Barriers/Issues: None. Used to see Onc Dr Mcgee in [place] but has since transferred here. PCP: Kleber Martin Specialists: Uro- Dr Salcedo, ONC- Dr May, Gen surg- Dr Gan Preferred Pharmacy: [facility], [place] Insurance: [employer] Rx Benefit: Yes? ?LNOK: Ruby Hoskins LW/HPOA: Yes both, states HPOA Living Arrangements:? Lives with in a SS home, 3 steps to enter. ADL?s: Independent with ambulation and ADL's Transportation: Patient drives, to transport on [place] DME: TPN and Infusion Equipment- [facility]. Denies any other DME. HHC: Past [facility] SNF: None Goal: Home, IV ABX- Patient states does not have a Preference for Infusion Companies, agrees to one In Network. DC PLAN: Home with IV ABX, Tentative DC for Monday. SEA Brewer
--- NOTE | 2018-09-15 17:33 | PCM.PROGNOTE ---
Patient Problems: Active and Suspected Problems (Last Reviewed 09/03/18 @ 08:49 by Nicolette Hylton) Pyelonephritis (Acute) Pyelonephritis, acute (Acute) Subjective: Patient seen and examined today, potassium was 3.3 this morning, white blood cell count is now 4 and hemoglobin is 8.3. Patient's platelet count was 128,000, patient again asked me what would cause his gastric outlet obstruction-explained again that this was probably due to his stage IV pancreatic cancer. Urine culture grew out over 100,000 colonies of coag negative staph, ID and sensitivity is to follow. - Physical Exam General: Alert, Oriented x3, Cooperative, No apparent distress HEENT: Atraumatic, PERRLA, EOMI, Normocephalic Neck: Supple, No JVD, Trachea Midline, Thyroid Normal Size and Texture Lungs: Clear to auscultation, Normal air movement, No rhonchi, No wheeze, No rales Cardiovascular: Regular rate, Regular Rhythm, Normal S1, Normal S2, No murmurs, No Ectopic Activity Abdomen: Bowel Sounds Present, Soft, Non Tender, Non-Distended Extremities: No clubbing, No cyanosis, No edema, Capillary Refill Less than 3 Seconds Skin: No rashes, No breakdown Musculoskeletal: Cachexia Neurological: Cranial nerves II-XII grossly intact, Neuro grossly intact, Sensory exam intact to light touch and pain, Coordination normal Psych/Mental Status: Normal Affect, Appropriate, Alert and oriented to time, place, person, mood and affect Vital Signs Temp Pulse Resp BP Pulse Ox 99.2 F H 54 L 18 99/53 L 95 09/15/18 14:32 09/15/18 14:32 09/15/18 14:32 09/15/18 14:32 09/15/18 14:32 Oxygen Flow Rate (L/min) 2 Oxygen Delivery Method Room Air Weight: 83.461 kg Body Mass Index (BMI) 22.4 Intake and Output for Last 24 Hours 09/13/18 09/14/18 09/15/18 23:59 23:59 23:59 Intake Total 913 / 913 3101 / 3101 Output Total 1100 / 1100 1375 / 1375 Balance -187 / -187 1726 / 1726 Microbiology Past 72 Hours 09/14/18 06:40 Urine Culture - Preliminary Urine, Clean Catch Coag Negative Staph Laboratory Tests Past 24 Hrs 09/15/18 09/15/18 07:20 07:20 WBC 4.0 L RBC 2.53 L Hgb 8.3 L Hct 25.4 L MCV 100.4 H MCH 32.8 H MCHC 32.7 RDW 18.2 H RDW Differential 67.1 H Plt Count 128 L MPV 11.3 Immature Gran % (Auto) 0.500 Neut % (Auto) 60.2 Lymph % (Auto) 22.9 [place] % (Auto) 14.1 H Eos % (Auto) 2.0 Baso % (Auto) 0.3 Absolute Neuts (auto) 2.4 Absolute Lymphs (auto) 0.91 Total Counted Not Reportable Hypochromasia 1+ Anisocytosis 1+ Sodium 143 Potassium 3.3 L Chloride 104 Carbon Dioxide 35.0 H Anion Gap 4 L BUN 24 H Creatinine 0.50 L Estim Creat Clear Calc 187.79 Est GFR (MDRD) Af Amer 217 Est GFR (MDRD) Non-Af 180 BUN/Creatinine Ratio 47.8 H Glucose 103 Calcium 7.5 L Medical Necessity - Tobacco Use Smoking Status: Never smoker Tobacco Use: Non-smoker Assessment/Plan All Active Problems (Last Reviewed 09/03/18 @ 08:49 by Nicolette Hylton) Ureteral obstruction, left (Resolved) CINV (chemotherapy-induced nausea and vomiting) (Resolved) Hypokalemia (Acute) Encounter for adjustment or management of vascular access device (Acute) Pyelonephritis (Acute) Pyelonephritis, acute (Acute) #1 acute pyelonephritis-secondary to staph hemolyticus-continue IV vancomycin #2 stage IV pancreatic cancer #3 hypokalemia-acute on chronic, patient will get IV potassium chloride, labs will be rechecked #4 nausea and vomiting-probably secondary to gastric outlet obstruction-patient had a contrast study done yesterday consisting of insertion of contrast through his PEG tube, this contrast said in the stomach and the stomach did not empty out. It appears that the patient has a gastric outlet obstruction secondary to his stage IV pancreatic cancer. I talked to general surgery about this after they had seen the patient, general surgery states that they are willing to attempt insertion of a J-tube as an outpatient to help the patient's nutrition and medication administration. 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
[2018-09-16] VITALS (8 sets, daily range): BP systolic 96–113; BP diastolic 52–65; PULSE 49–59; RESP 16; TEMP 36.5–36.9; O2SAT 96–98
[2018-09-16] MEDS: Ondansetron 4 MG/2 ML Vial IV ×6 (02:36→23:27)
[2018-09-16] MEDS: Morphine 4 MG/ML Syringe IV ×6 (02:36→23:28)
[2018-09-16] MEDS: 0.9% NaCl VAD Flush 10 ML IV ×3 (02:37→23:28)
--- NOTE | 2018-09-16 05:19 | NURSING ---
pt does not want peripheral lab draw he wants to wait until tpn is finished infusing before having labs drawn from port. will notify lithopone charger
[2018-09-16] MEDS: Pregabalin 75 MG Capsule PO ×2 (09:51→21:18)
[2018-09-16] MEDS: Pantoprazole Sodium 40 MG Tablet PO ×2 (09:51→21:18)
[2018-09-16 10:06] LABS: Anion Gap 3 (5-15); BUN 23 mg/dL (7-18); BUN/Creat Ratio 49.8 RATIO (10-20); Calcium,Total 7.3 mg/dL (8.5-10.1); Chloride 107 mmol/L (98-107); Creatinine, Serum 0.46 mg/dL (0.70-1.30); EST Glomerular Filtration Rate 198 mL/min (>60); Est Glom Filt Rate - Afr Amer 239 mL/min (>60); Estimated Creatinine Clearance 204.12 ml/min; Glucose 103 mg/dL (74-106); Potassium 3.8 mmol/L (3.5-5.1); Sodium Level 142 mmol/L (136-145)
[2018-09-16 10:10] LABS: Absolute Lymphocyte Count 1.13 X10^3/ul (0.83-4.51); Absolute Neutrophil Count 2.6 X10^3/uL (2.0-7.7); Basophil# 0.01 X10^3/uL; Basophil% 0.2 % (0-1); Eosinophil# 0.06 X10^3/uL; Eosinophils% 1.5 % (0-5); Hematocrit 24.9 % (40-54); Hemoglobin 8.1 g/dl (13.0-16.5); Lymphocyte # 1.13 X10^3/ul (4.0); Lymphocyte % 27.4 % (19-41); Mean Corp Hgb Conc 32.5 g/gl (32-36); Mean Corpuscular Hgb 32.8 pg (27.0-32.0); Mean Corpuscular Volume 100.8 fL (80-94); Mean Platelet Vol. 11.1 fl (6.2-12.0); Monocyte# 0.32 X10^3/uL; Monocyte% 7.7 % (0-10); Neutrophil # 2.59 X10^3/uL (2.7-7.7); Neutrophil % 62.7 % (47-70); Platelet Count 127 K/mm3 (150-450); RBC Distribution Width CV 17.9 % (11.6-14.6); RBC Distribution Width SD 66.8 fl (35.1-43.9); Red Blood Count 2.47 M/mm3 (4.6-6.2); White Blood Count 4.1 K/mm3 (4.4-11.0)
[2018-09-16 10:12] LABS: Differential Indicated SCAN CRITERIA MET; POSITIVE COUNT NO; POSITIVE DIFFERENTIAL NO; POSITIVE MORPHOLOGY YES
[2018-09-16] MEDS: Enoxaparin 40 MG/0.4 ML Syringe SC (10:19)
[2018-09-16 10:46] LABS: Anisocytosis 1+
--- NOTE | 2018-09-16 15:10 | PCM.PROGNOTE ---
Patient Problems: Active and Suspected Problems (Last Reviewed 09/03/18 @ 08:49 by Nicolette Hylton) Pyelonephritis (Acute) Pyelonephritis, acute (Acute) Subjective: Patient was seen and examined today, his potassium now is within normal range. Patient's urine culture grew out staph hemolyticus with sensitivities as before as noted in his previous urine cultures. Patient will have to be set up for outpatient antibiotics per infectious diseases, patient will also have to see Dr. Peters concerning placement of a J-tube for ongoing nutritional support. - Physical Exam General: Alert, Oriented x3, Cooperative, No apparent distress, Well developed HEENT: Atraumatic, PERRLA, EOMI, Normocephalic Oral: Moist Mucosa Neck: Supple, No JVD, Trachea Midline, Thyroid Normal Size and Texture Lungs: Clear to auscultation, Normal air movement, No rhonchi, No wheeze, No rales Cardiovascular: Regular rate, Regular Rhythm, Normal S1, Normal S2, No murmurs, No Ectopic Activity, PMI Normal Abdomen: Bowel Sounds Present, Soft, Non Tender, Non-Distended, No Hepato-splenomegaly, - - G-tube in place Extremities: No clubbing, No cyanosis, No edema, Capillary Refill Less than 3 Seconds Skin: No rashes, No breakdown Musculoskeletal: No Tenderness to Palpation of Joints or Extremities Neurological: Cranial nerves II-XII grossly intact, Neuro grossly intact, Motor Exam 5/5 strength throughout, Sensory exam intact to light touch and pain, Coordination normal Psych/Mental Status: Normal Affect, Appropriate, Alert and oriented to time, place, person, mood and affect Vital Signs Temp Pulse Resp BP Pulse Ox 97.9 F 53 L 16 98/65 97 09/16/18 15:05 09/16/18 15:05 09/16/18 15:05 09/16/18 15:05 09/16/18 15:05 Oxygen Flow Rate (L/min) 2 Oxygen Delivery Method Room Air Weight: 83.461 kg Body Mass Index (BMI) 22.4 Intake and Output for Last 24 Hours 09/14/18 09/15/18 09/16/18 23:59 23:59 23:59 Intake Total 913 / 913 5642 / 5642 1741 / 1741 Output Total 1100 / 1100 2900 / 2900 1250 / 1250 Balance -187 / -187 8322 / 2742 491 / 491 Microbiology Past 72 Hours 09/14/18 06:40 Urine Culture - Final Urine, Clean Catch Staphylococcus haemolyticus 09/14/18 06:08 Blood Culture - Preliminary Blood Culture (Wb) - Port No growth in 48 hours. 09/14/18 06:03 Blood Culture - Preliminary Blood Culture (Wb) - Anticubital Left No growth in 48 hours. Laboratory Tests Past 24 Hrs 09/16/18 09/16/18 09:45 09:45 WBC 4.1 L RBC 2.47 L Hgb 8.1 L Hct 24.9 L MCV 100.8 H MCH 32.8 H MCHC 32.5 RDW 17.9 H RDW Differential 66.8 H Plt Count 127 L MPV 11.1 Immature Gran % (Auto) 0.500 Neut % (Auto) 62.7 Lymph % (Auto) 27.4 [place] % (Auto) 7.7 Eos % (Auto) 1.5 Baso % (Auto) 0.2 Absolute Neuts (auto) 2.6 Absolute Lymphs (auto) 1.13 Total Counted Not Reportable Anisocytosis 1+ Sodium 142 Potassium 3.8 Chloride 107 Carbon Dioxide 32.0 Anion Gap 3 L BUN 23 H Creatinine 0.46 L Estim Creat Clear Calc 204.12 Est GFR (MDRD) Af Amer 239 Est GFR (MDRD) Non-Af 198 BUN/Creatinine Ratio 49.8 H Glucose 103 Calcium 7.3 L Medical Necessity - Tobacco Use Smoking Status: Never smoker Tobacco Use: Non-smoker Assessment/Plan All Active Problems (Last Reviewed 09/03/18 @ 08:49 by Nicolette Hylton) Ureteral obstruction, left (Resolved) CINV (chemotherapy-induced nausea and vomiting) (Resolved) Hypokalemia (Acute) Encounter for adjustment or management of vascular access device (Acute) Pyelonephritis (Acute) Pyelonephritis, acute (Acute) #1 acute pyelonephritis-secondary to staph hemolyticus-continue IV vancomycin, this will need set up for outpatient administration #2 stage IV pancreatic cancer #3 hypokalemia-acute on chronic-stable at this time #4 nausea and vomiting-probably secondary to gastric outlet obstruction #5 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
[2018-09-16 17:21] LABS: Vancomycin, Trough Level 8.3 ug/mL (5.0-15.0)
--- NOTE | 2018-09-16 17:30 | PHA.PHARE_ITS ---
Consult Pharmacy has been consulted to manage selected antiobiotic: Vancomycin Type of Consult: Follow-up Suspected Infection: Other Prior Doses of Antibiotics Received/Current Regimen: VANCOMYCIN 1250MG iv Q12HRS: 09/16 @0333, 1603 Labs: Sodium 142 mmol/L (136-145) 09/16/18 09:45 Potassium 3.8 mmol/L (3.5-5.1) 09/16/18 09:45 Chloride 107 mmol/L (98-107) 09/16/18 09:45 Carbon Dioxide 32.0 mmol/L (21.0-32.0) 09/16/18 09:45 Anion Gap 3 (5-15) L 09/16/18 09:45 BUN 23 mg/dL (7-18) H 09/16/18 09:45 Creatinine 0.46 mg/dL (0.70-1.30) L 09/16/18 09:45 Est GFR (MDRD) Af Amer 239 mL/min (>60) 09/16/18 09:45 Est GFR (MDRD) Non-Af 198 mL/min (>60) 09/16/18 09:45 BUN/Creatinine Ratio 49.8 RATIO (10-20) H 09/16/18 09:45 Glucose 103 mg/dL (74-106) 09/16/18 09:45 Vancomycin Trough 8.3 ug/mL (5.0-15.0) 09/16/18 15:35 Microbiology: Microbiology 09/14/18 06:40 Urine, Clean Catch Urine Culture - Final Staphylococcus haemolyticus 09/14/18 06:08 Blood Culture (Wb) - Port Blood Culture - Preliminary No growth in 48 hours. 09/14/18 06:03 Blood Culture (Wb) - Anticubital Left Blood Culture - Preliminary No growth in 48 hours. Goal Trough: 10-15 mcg/mL Pharmacy Plan for Drug Dosing: A trough was drawn for this patient which resulted in a trough value of 8.3 (drawn ~12hrs from last administered dose). The patient has a goal trough of 10- 15, will plan on increasing dose to 1750mg IV q12hrs and redraw a trough prior to the 4th dose of new regimen. PLAN/RECOMMENDATIONS 1. Vancomycin 1750mg Q12hrs to start 09/17/18 @0400 2. Trough scheduled 09/18/18 @1530, prior to the dose of new regimen 3. Pharmacy Service will continue to monitor and adjust dosing as required.
[2018-09-17 03:33] VITALS: BP 102/53; PULSE 57; RESP 16; TEMP 37; O2SAT 97
[2018-09-17] MEDS: Morphine 4 MG/ML Syringe IV ×2 (03:36→08:34)
[2018-09-17] MEDS: Ondansetron 4 MG/2 ML Vial IV ×2 (03:37→08:33)
[2018-09-17] MEDS: 0.9% NaCl VAD Flush 10 ML IV ×5 (03:37→18:20)
--- NOTE | 2018-09-17 08:00 | PCM.PN.HOSP ---
Patient Problems: Active and Suspected Problems (Last Reviewed 09/03/18 @ 08:49 by Nicolette Hylton) Pyelonephritis (Acute) Pyelonephritis, acute (Acute) Subjective: Patient is a 58-year-old male with pancreatic cancer with peritoneal carcinomatosis resulting in gastric outlet obstruction as well as left hydronephrosis requiring stent placement who presented with left flank pain associated with nausea, and chills. An assessment of acute pyelonephritis made admitted to regular nursing floor for further management Objective: GENERAL: cooperative HEENT: Atraumatic; moist oral mucosa EYES; Anicteric, Normal Conjunctiva NECK; supple, normal thyroid, RESPIRATORY: Diminished to auscultation bilaterally, CARDIOVASCULAR: Regular S1 S2, no audible murmurs GI: soft, non-tender, normoactive bowel sounds, : No Renal angle tenderness; EXTREMITIES: No edema, no clubbing, no cyanosis. MUSCULOSKELETAL: No Joint Tenderness; NEURO: Awake; no lateralizing signs. SKIN: No Rash PSYCH; Normal affect Vitals/I&O's: Vital Signs Temp Pulse Resp BP Pulse Ox 98.6 F 57 L 16 102/53 L 97 09/17/18 03:33 09/17/18 03:33 09/17/18 03:33 09/17/18 03:33 09/17/18 03:33 Oxygen Flow Rate (L/min) 2 Oxygen Delivery Method Room Air Weight: 90.2 kg Body Mass Index (BMI) 22.4 Intake and Output for Last 24 Hours 09/15/18 09/16/18 09/17/18 23:59 23:59 23:59 Intake Total 5642 / 5642 3002 / 3002 2391 / 2391 Output Total 2900 / 2900 1999 / 1999 1000 / 1000 Balance 2742 / 2742 1002 / 1002 1391 / 1391 Microbiology Past 72 Hours 09/14/18 06:40 Urine, Clean Catch Urine Culture - Final Staphylococcus haemolyticus 09/14/18 06:08 Blood Culture (Wb) - Port Blood Culture - Preliminary No growth in 48 hours. 09/14/18 06:03 Blood Culture (Wb) - Anticubital Left Blood Culture - Preliminary No growth in 48 hours. Laboratory Results 09/16/18 09:45: Sodium 142, Potassium 3.8, Chloride 107, Carbon Dioxide 32.0, Anion Gap 3 L, BUN 23 H, Creatinine 0.46 L, Estim Creat Clear Calc 204.12, Est GFR (MDRD) Af Amer 239, Est GFR (MDRD) Non-Af 198, BUN/Creatinine Ratio 49.8 H, Glucose 103, Calcium 7.3 L 09/16/18 09:45: WBC 4.1 L, RBC 2.47 L, Hgb 8.1 L, Hct 24.9 L, MCV 100.8 H, MCH 32.8 H, MCHC 32.5, RDW 17.9 H, RDW Differential 66.8 H, Plt Count 127 L, MPV 11.1, Immature Gran % (Auto) 0.500, Neut % (Auto) 62.7, Lymph % (Auto) 27.4, [place] % (Auto) 7.7, Eos % (Auto) 1.5, Baso % (Auto) 0.2, Absolute Neuts (auto) 2.6, Absolute Lymphs (auto) 1.13, Total Counted Not Reportable, Anisocytosis 1+ 09/16/18 15:35: Vancomycin Trough 8.3 Current Medications Acetaminophen (Tylenol) 650 mg PO Q6H PRN PRN PRN Reason: Mild Pain (1-3)/Temp > 100.7 F Enoxaparin Sodium (Lovenox) 40 mg SC DAILY@1000 [facility] Last Admin: 09/16/18 10:19 Dose: 40 mg Heparin Sodium (Beef Lung) () 50 units IV UD PRN PRN Reason: HEPARIN FLUSH Hydromorphone HCl (Dilaudid Tablet) 1 - 2 mg PO Q6H PRN PRN Reason: PAIN Potassium Chloride/Sodium Chloride () 1,000 mls @ 120 mls/hr IV .Q8H20M [facility] Last Admin: 09/16/18 21:13 Dose: 120 mls/hr Vancomycin IV Pharmacy to Dose (1 ea/ Sodium Chloride) 500 mls @ 250 mls/hr IV X1 PRN; Protocol PRN Reason: Rx to Dose Vancomycin HCl 1,750 mg/ (Sodium Chloride) 535 mls @ 250 mls/hr IV Q12H [facility] Last Admin: 09/17/18 03:37 Dose: 250 mls/hr Lorazepam (Ativan) 1 mg PO DAILY PRN PRN PRN Reason: ANXIETY Morphine Sulfate () 4 mg IV Q3H PRN PRN PRN Reason: Severe pain (7-10/10) Last Admin: 09/17/18 03:36 Dose: 4 mg Ondansetron HCl (Zofran) 4 mg IV Q4H PRN PRN PRN Reason: NAUSEA/VOMITING Last Admin: 09/17/18 03:37 Dose: 4 mg Oxycodone HCl (Oxyir) 5 mg PO Q6H PRN PRN PRN Reason: PAIN Pantoprazole Sodium (Protonix) 40 mg PO BID [facility] Last Admin: 09/16/18 21:18 Dose: 40 mg Pregabalin (Lyrica) 75 mg PO BID [facility] Last Admin: 09/16/18 21:18 Dose: 75 mg Scopolamine HBr (Transderm-Scop) 1 patch TD Q3D [facility] Last Admin: 09/15/18 09:34 Dose: 1 patch Sodium Chloride () 10 ml IV UD PRN PRN Reason: VAD FLUSH Last Admin: 09/17/18 03:37 Dose: 10 ml Medical Necessity - Tobacco Use Smoking Status: Never smoker Tobacco Use: Non-smoker Assessment/Plan All Active Problems (Last Reviewed 09/03/18 @ 08:49 by Nicolette Hylton) Ureteral obstruction, left (Resolved) CINV (chemotherapy-induced nausea and vomiting) (Resolved) Hypokalemia (Acute) Encounter for adjustment or management of vascular access device (Acute) Pyelonephritis (Acute) Pyelonephritis, acute (Acute) Patient is a 58-year-old male with pancreatic cancer with peritoneal carcinomatosis resulting in gastric outlet obstruction as well as left hydronephrosis requiring stent placement who presented with left flank pain associated with nausea, and chills. An assessment of acute pyelonephritis made admitted to regular nursing floor for further management 1. Acute pyelonephritis with staph hemolyticus; patient admitted to regular nursing floor started on broad-spectrum antibiotic therapy with vancomycin with consultation placed to Dr. Villela subsequent antibiotic management deferred 2. Stage IV pancreatic cancer with peritoneal carcinomatosis with resultant gastric outlet obstruction as well as left hydronephrosis patient currently receiving chemo as outpatient patient's oncologist is Dr. Dave 3. Left hydronephrosis secondary to peritoneal carcinomatosis from pancreatic cancer status post stent placement with recent stent change on 08/24/2018 4. Gastric outlet obstruction with intractable nausea vomiting patient was seen by Dr. Peters with general surgery with plans for patient to undergo outpatient G-tube placement 5. 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 DVT prophylaxis enoxaparin Active Medications Acetaminophen (Tylenol) 650 mg PO Q6H PRN PRN PRN Reason: Mild Pain (1-3)/Temp > 100.7 F Enoxaparin Sodium (Lovenox) 40 mg SC DAILY@1000 [facility] Last Admin: 09/16/18 10:19 Dose: 40 mg Heparin Sodium (Beef Lung) () 50 units IV UD PRN PRN Reason: HEPARIN FLUSH Hydromorphone HCl (Dilaudid Tablet) 1 - 2 mg PO Q6H PRN PRN Reason: PAIN Potassium Chloride/Sodium Chloride () 1,000 mls @ 120 mls/hr IV .Q8H20M [facility] Last Admin: 09/16/18 21:13 Dose: 120 mls/hr Vancomycin IV Pharmacy to Dose (1 ea/ Sodium Chloride) 500 mls @ 250 mls/hr IV X1 PRN; Protocol PRN Reason: Rx to Dose Vancomycin HCl 1,750 mg/ (Sodium Chloride) 535 mls @ 250 mls/hr IV Q12H [facility] Last Admin: 09/17/18 03:37 Dose: 250 mls/hr Lorazepam (Ativan) 1 mg PO DAILY PRN PRN PRN Reason: ANXIETY Morphine Sulfate () 4 mg IV Q3H PRN PRN PRN Reason: Severe pain (7-10/10) Last Admin: 09/17/18 03:36 Dose: 4 mg Ondansetron HCl (Zofran) 4 mg IV Q4H PRN PRN PRN Reason: NAUSEA/VOMITING Last Admin: 09/17/18 03:37 Dose: 4 mg Oxycodone HCl (Oxyir) 5 mg PO Q6H PRN PRN PRN Reason: PAIN Pantoprazole Sodium (Protonix) 40 mg PO BID [facility] Last Admin: 09/16/18 21:18 Dose: 40 mg Pregabalin (Lyrica) 75 mg PO BID [facility] Last Admin: 09/16/18 21:18 Dose: 75 mg Scopolamine HBr (Transderm-Scop) 1 patch TD Q3D [facility] Last Admin: 09/15/18 09:34 Dose: 1 patch Sodium Chloride () 10 ml IV UD PRN PRN Reason: VAD FLUSH Last Admin: 09/17/18 03:37 Dose: 10 ml Clinical Impression(s) from Imaging Studies Abdomen/Pelvis CT 09/14/18 05:56 IMPRESSION: As compared to exam from August 27, there appears to be increased left hydronephrosis with increased left hydroureter. Worsening left perinephric fat stranding as well as left periureteral fat stranding. Left ureteral stent is noted in place; unsure if there is concomitant infection currently. Remaining findings are stable Electronically Signed: Mikael Madden DO at 7:43 EDT Tel , Service support , Chest X-Ray 09/14/18 06:05 IMPRESSION: No acute cardiopulmonary disease. at 0743 Reported and signed by: Pietro Ochoa MD Electronically Signed: Pietro Ochoa, at 7:42 EDT Tel , Service support , Upper GI Series 09/14/18 13:40 IMPRESSION: Well-positioned PEG tube. Complete gastric outlet obstruction. Extrinsic mass effect upon the body of the greater curvature of the stomach may represent a manifestation of patient's primary pancreatic neoplasm. Consider cross-sectional imaging. Electronically Signed: Jakub Briseno MD at 15:22 EDT , Service support , Code Visit Inpatient E&M: 57125 Subs Hosp L3
[2018-09-17 08:15] VITALS: BP 112/50; PULSE 60; RESP 18; TEMP 36.9; O2SAT 100
[2018-09-17 08:58] VITALS: RESP 18; O2SAT 100
[2018-09-17] MEDS: Enoxaparin 40 MG/0.4 ML Syringe SC (10:00)
[2018-09-17] MEDS: Pantoprazole Sodium 40 MG Tablet PO (10:01)
[2018-09-17] MEDS: Pregabalin 75 MG Capsule PO (10:01)
[2018-09-17 15:37] VITALS: BP 111/67; PULSE 50; RESP 16; TEMP 36.8; O2SAT 99
--- NOTE | 2018-09-17 15:47 | PCM.PN.ID ---
Patient Problems: Active and Suspected Problems (Last Reviewed 09/03/18 @ 08:49 by Nicolette Hylton) Pyelonephritis (Acute) Pyelonephritis, acute (Acute) Subjective: Feeling better, no fever, L flank pain nearly resolved. - Physical Exam General: Alert, Cooperative, No apparent distress Lungs: Clear to auscultation, Normal air movement Cardiovascular: Regular rate, Regular Rhythm Abdomen: Soft, Non Tender, Non-Distended Skin: No rashes Vital Signs Temp Pulse Resp BP Pulse Ox 98.2 F 50 L 16 111/67 99 09/17/18 15:37 09/17/18 15:37 09/17/18 15:37 09/17/18 15:37 09/17/18 15:37 Oxygen Flow Rate (L/min) 2 Oxygen Delivery Method Room Air Weight: 90.2 kg Body Mass Index (BMI) 22.4 Intake and Output for Last 24 Hours 09/15/18 09/16/18 09/17/18 23:59 23:59 23:59 Intake Total 5642 / 5642 3002 / 3002 3145 / 3145 Output Total 2900 / 2900 1999 / 1999 1800 / 1800 Balance 2742 / 2742 1002 / 1002 1345 / 1345 Microbiology Past 72 Hours 09/14/18 06:40 Urine Culture - Final Urine, Clean Catch Staphylococcus haemolyticus 09/14/18 06:08 Blood Culture - Preliminary Blood Culture (Wb) - Port No growth in 48 hours. 09/14/18 06:03 Blood Culture - Preliminary Blood Culture (Wb) - Anticubital Left No growth in 48 hours. Laboratory Tests Past 24 Hrs 09/16/18 15:35 Vancomycin Trough 8.3 Medical Necessity - Tobacco Use Smoking Status: Never smoker Tobacco Use: Non-smoker Route of nutrition/ use of supplements: [] Nutritional Intake: [] IV Site: [] Gandhi Catheter: [] - Assessment/Plan Antibiotics: [] Assessment/Plan: [] L pyelonephritis - inflammation on UA, L flank pain, nausea. Recent stent change by Dr. Salcedo. Ucx with CoNS from [place], cx with MS-S. haemolyticus here. Much improved on iv vanc. He does take some oral meds which do seem to be at least partially absorbed. Agree with pausing suction after taking abx. Ok for d/c home on one week of doxy. Will also start methenamine for residential prophylaxis given colonized stent. Urine pH was 5. Ok for d/c home. Will follow, d/w field nurse case manager
--- NOTE | 2018-09-17 17:34 | DCINST_ITS ---
- Discharge Diagnoses Current Active Problems: Current Active and Chronic Problems (Last Reviewed 09/03/18 @ 08:49 by Nicolette Hylton) Pyelonephritis (Acute) Pyelonephritis, acute (Acute) You will use the following diet at home:: Other - continue TPN Discharge Activity: Return to Normal Activity Weight Bearing Status: Full weight bearing Allergies/Adverse Reactions: Allergies latex Allergy (Verified 09/14/18 05:43) Rash Medications to take at Discharge Bromelains [Bromelain] 500 gm MC BID PRN 01/17/18 Ondansetron [Zofran Odt] 8 mg PO Q8H PRN PRN 01/17/18 Oxycodone [Oxyir] 5 mg PO Q6H PRN PRN 01/17/18 Dexamethasone [Decadron] 2 mg PO DAILY 07/18/18 Diphenoxylate HCl/Atropine [Diphenoxylate-Atrop 2.5-0.025] 2 ea PO Q6H 07/18/18 Hydromorphone HCl 2 mg PO Q6H PRN 07/18/18 Oxybutynin Chloride [Oxybutynin Chloride ER] 10 mg PO DAILY 07/18/18 Lorazepam [Ativan] 1 mg PO DAILY PRN PRN 08/06/18 Pregabalin [Lyrica] 75 mg PO BID 08/06/18 Promethazine HCl 12.5 mg PO Q6H PRN 08/06/18 Pantoprazole Sodium [Protonix] 40 mg PO BID 30 Days #60 tablet 08/14/18 Scopolamine [Transderm-Scop] 1.5 mg TD X1 30 Days #10 patch.td.3 09/03/18 Doxycycline 100 mg PO BID 7 Days #14 capsule 09/17/18 Methenamine Hippurate [Hiprex] 1 gm PO BID #60 tablet 09/17/18 The following prescriptions were given: Doxycycline 100 mg PO BID 7 Days #14 capsule Methenamine Hippurate [Hiprex] 1 gm PO BID #60 tablet Primary Care Physician: Kleber Martin DO [Primary Care Provider] - Please follow up with your Primary Care Physician in: in 2 weeks Test Results: Test results from this visit will be discussed in further detail at your follow- up appointment, if applicable. Please Follow Up With: Justina May MD When: in office-call for appointment
[2018-09-17] MEDS: Doxycycline 100 MG CAPSULE PO (18:18)
--- NOTE | 2018-09-17 19:33 | PCM.DC.SUM ---
Discharge Date and Diagnosis Date of Admission: 09/14/18 Date of Discharge: 09/17/18 - Primary Discharge Diagnosis Acute Pyelonephritis - Secondary Discharge Diagnosis Chronic Problems (Last Reviewed 09/03/18 @ 08:49 by Nicolette Hylton) GI (gastrointestinal bleed) (Chronic) Pancreas cancer (Chronic) Peritoneal carcinomatosis (Chronic) Hematuria (Chronic) While on anticoagulants DVT of upper extremity (deep vein thrombosis) (Chronic) January 2018 complicating PICC line Hydronephrosis, left (Chronic) Status post stent May 2018 Cancer-related pain (Chronic) Gastrostomy in place (Chronic) Hospital Course and Treatment Imaging Results: Clinical Impression(s) from Imaging Studies Abdomen/Pelvis CT 09/14/18 05:56 IMPRESSION: As compared to exam from August 27, there appears to be increased left hydronephrosis with increased left hydroureter. Worsening left perinephric fat stranding as well as left periureteral fat stranding. Left ureteral stent is noted in place; unsure if there is concomitant infection currently. Remaining findings are stable Electronically Signed: Mikael Madden DO at 7:43 EDT Tel , Service support , Chest X-Ray 09/14/18 06:05 IMPRESSION: No acute cardiopulmonary disease. at 0743 Reported and signed by: Pietro Ochoa MD Electronically Signed: Pietro Ochoa, at 7:42 EDT Tel , Service support , Upper GI Series 09/14/18 13:40 IMPRESSION: Well-positioned PEG tube. Complete gastric outlet obstruction. Extrinsic mass effect upon the body of the greater curvature of the stomach may represent a manifestation of patient's primary pancreatic neoplasm. Consider cross-sectional imaging. Electronically Signed: Jakub Briseno MD at 15:22 EDT , Service support , Summary of Care Provided: Patient is a 58-year-old male with pancreatic cancer with peritoneal carcinomatosis resulting in gastric outlet obstruction as well as left hydronephrosis requiring stent placement who presented with left flank pain associated with nausea, and chills. An assessment of acute pyelonephritis made admitted to regular nursing floor for further management 1. Acute pyelonephritis with staph hemolyticus; patient admitted to regular nursing floor started on broad-spectrum antibiotic therapy with vancomycin with consultation placed to Dr. Villela subsequent antibiotic management deferred 2. Stage IV pancreatic cancer with peritoneal carcinomatosis with resultant gastric outlet obstruction as well as left hydronephrosis patient currently receiving chemo as outpatient patient's oncologist is Dr. Dave 3. Left hydronephrosis secondary to peritoneal carcinomatosis from pancreatic cancer status post stent placement with recent stent change on 08/24/2018 4. Gastric outlet obstruction with intractable nausea vomiting patient was seen by Dr. Peters with general surgery with plans for patient to undergo outpatient G-tube placement 5. 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 DVT prophylaxis enoxaparin - Physical Exam General: Alert HEENT: Atraumatic Neck: Supple Psych/Mental Status: Normal Affect Vital Signs Temp Pulse Resp BP Pulse Ox 98.2 F 50 L 16 111/67 99 09/17/18 15:37 09/17/18 15:37 09/17/18 15:37 09/17/18 15:37 09/17/18 15:37 Oxygen Flow Rate (L/min) 2 Oxygen Delivery Method Room Air Weight: 90.2 kg Body Mass Index (BMI) 22.4 Intake and Output for Last 24 Hours 09/15/18 09/16/18 09/17/18 23:59 23:59 23:59 Intake Total 5642 / 5642 3002 / 3002 3145 / 3145 Output Total 2900 / 2900 1999 / 1999 1800 / 1800 Balance 2742 / 2742 1002 / 1002 1345 / 1345 Microbiology Past 72 Hours 09/14/18 06:40 Urine Culture - Final Urine, Clean Catch Staphylococcus haemolyticus 09/14/18 06:08 Blood Culture - Preliminary Blood Culture (Wb) - Port No growth in 48 hours. 09/14/18 06:03 Blood Culture - Preliminary Blood Culture (Wb) - Anticubital Left No growth in 48 hours. Discharge Activity: Return to Normal Activity Weight Bearing Status: Full weight bearing Call your doctor if your incision/area has: Continuous Slow Oozing Home Medications: Medications to take at Discharge Bromelains [Bromelain] 500 gm MC BID PRN 01/17/18 Ondansetron [Zofran Odt] 8 mg PO Q8H PRN PRN 01/17/18 Oxycodone [Oxyir] 5 mg PO Q6H PRN PRN 01/17/18 Dexamethasone [Decadron] 2 mg PO DAILY 07/18/18 Diphenoxylate HCl/Atropine [Diphenoxylate-Atrop 2.5-0.025] 2 ea PO Q6H 07/18/18 Hydromorphone HCl 2 mg PO Q6H PRN 07/18/18 Oxybutynin Chloride [Oxybutynin Chloride ER] 10 mg PO DAILY 07/18/18 Lorazepam [Ativan] 1 mg PO DAILY PRN PRN 08/06/18 Pregabalin [Lyrica] 75 mg PO BID 08/06/18 Promethazine HCl 12.5 mg PO Q6H PRN 08/06/18 Pantoprazole Sodium [Protonix] 40 mg PO BID 30 Days #60 tablet 08/14/18 Scopolamine [Transderm-Scop] 1.5 mg TD X1 30 Days #10 patch.td.3 09/03/18 Doxycycline 100 mg PO BID 7 Days #14 capsule 09/17/18 Methenamine Hippurate [Hiprex] 1 gm PO BID #60 tablet 09/17/18 Following Prescrptions Were Given to Patient: Doxycycline 100 mg PO BID 7 Days #14 capsule Methenamine Hippurate [Hiprex] 1 gm PO BID #60 tablet Primary Care Physician: Kleber Martin DO [Primary Care Provider] - Please follow up with your Primary Care Physician in: in 2 weeks Please Follow Up With: Justina May MD When: in office-call for appointment Medical Necessity - Tobacco Use Smoking Status: Never smoker Tobacco Use: Non-smoker Meaningful Use Info Meaningful Use Diagnoses (Choose all that apply): None applicable Code Visit Inpatient E&M: 59117 Disch Hosp
--- NOTE | 2018-09-17 19:37 | DS.PCM_ITS ---
Discharge Date and Diagnosis Date of Admission: 09/14/18 Date of Discharge: 09/17/18 - Primary Discharge Diagnosis Acute Pyelonephritis - Secondary Discharge Diagnosis Chronic Problems (Last Reviewed 09/03/18 @ 08:49 by Nicolette Hylton) GI (gastrointestinal bleed) (Chronic) Pancreas cancer (Chronic) Peritoneal carcinomatosis (Chronic) Hematuria (Chronic) While on anticoagulants DVT of upper extremity (deep vein thrombosis) (Chronic) January 2018 complicating PICC line Hydronephrosis, left (Chronic) Status post stent May 2018 Cancer-related pain (Chronic) Gastrostomy in place (Chronic) Hospital Course and Treatment Imaging Results: Clinical Impression(s) from Imaging Studies Abdomen/Pelvis CT 09/14/18 05:56 IMPRESSION: As compared to exam from August 27, there appears to be increased left hydronephrosis with increased left hydroureter. Worsening left perinephric fat stranding as well as left periureteral fat stranding. Left ureteral stent is noted in place; unsure if there is concomitant infection currently. Remaining findings are stable Electronically Signed: Mikael Madden DO at 7:43 EDT Tel , Service support , Chest X-Ray 09/14/18 06:05 IMPRESSION: No acute cardiopulmonary disease. at 0743 Reported and signed by: Pietro Ochoa MD Electronically Signed: Pietro Ochoa, at 7:42 EDT Tel , Service support , Upper GI Series 09/14/18 13:40 IMPRESSION: Well-positioned PEG tube. Complete gastric outlet obstruction. Extrinsic mass effect upon the body of the greater curvature of the stomach may represent a manifestation of patient's primary pancreatic neoplasm. Consider cross-sectional imaging. Electronically Signed: Jakub Briseno MD at 15:22 EDT , Service support , Summary of Care Provided: Patient is a 58-year-old male with pancreatic cancer with peritoneal carcinomatosis resulting in gastric outlet obstruction as well as left hydronephrosis requiring stent placement who presented with left flank pain associated with nausea, and chills. An assessment of acute pyelonephritis made admitted to regular nursing floor for further management 1. Acute pyelonephritis with staph hemolyticus; patient admitted to regular nursing floor started on broad-spectrum antibiotic therapy with vancomycin with consultation placed to Dr. Villela subsequent antibiotic management deferred 2. Stage IV pancreatic cancer with peritoneal carcinomatosis with resultant gastric outlet obstruction as well as left hydronephrosis patient currently receiving chemo as outpatient patient's oncologist is Dr. Dave 3. Left hydronephrosis secondary to peritoneal carcinomatosis from pancreatic cancer status post stent placement with recent stent change on 08/24/2018 4. Gastric outlet obstruction with intractable nausea vomiting patient was seen by Dr. Peters with general surgery with plans for patient to undergo o utpatient G-tube placement 5. 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 DVT prophylaxis enoxaparin - Physical Exam General: Alert HEENT: Atraumatic Neck: Supple Psych/Mental Status: Normal Affect Vital Signs Temp Pulse Resp BP Pulse Ox 98.2 F 50 L 16 111/67 99 09/17/18 15:37 09/17/18 15:37 09/17/18 15:37 09/17/18 15:37 09/17/18 15:37 Oxygen Flow Rate (L/min) 2 Oxygen Delivery Method Room Air Weight: 90.2 kg Body Mass Index (BMI) 22.4 Intake and Output for Last 24 Hours 09/15/18 09/16/18 09/17/18 23:59 23:59 23:59 Intake Total 5642 / 5642 3002 / 3002 3145 / 3145 Output Total 2900 / 2900 1999 / 1999 1800 / 1800 Balance 2742 / 2742 1002 / 1002 1345 / 1345 Microbiology Past 72 Hours 09/14/18 06:40 Urine Culture - Final Urine, Clean Catch Staphylococcus haemolyticus 09/14/18 06:08 Blood Culture - Preliminary Blood Culture (Wb) - Port No growth in 48 hours. 09/14/18 06:03 Blood Culture - Preliminary Blood Culture (Wb) - Anticubital Left No growth in 48 hours. Discharge Activity: Return to Normal Activity Weight Bearing Status: Full weight bearing Call your doctor if your incision/area has: Continuous Slow Oozing Home Medications: Medications to take at Discharge Bromelains [Bromelain] 500 gm MC BID PRN 01/17/18 Ondansetron [Zofran Odt] 8 mg PO Q8H PRN PRN 01/17/18 Oxycodone [Oxyir] 5 mg PO Q6H PRN PRN 01/17/18 Dexamethasone [Decadron] 2 mg PO DAILY 07/18/18 Diphenoxylate HCl/Atropine [Diphenoxylate-Atrop 2.5-0.025] 2 ea PO Q6H 07/18/18 Hydromorphone HCl 2 mg PO Q6H PRN 07/18/18 Oxybutynin Chloride [Oxybutynin Chloride ER] 10 mg PO DAILY 07/18/18 Lorazepam [Ativan] 1 mg PO DAILY PRN PRN 08/06/18 Pregabalin [Lyrica] 75 mg PO BID 08/06/18 Promethazine HCl 12.5 mg PO Q6H PRN 08/06/18 Pantoprazole Sodium [Protonix] 40 mg PO BID 30 Days #60 tablet 08/14/18 Scopolamine [Transderm-Scop] 1.5 mg TD X1 30 Days #10 patch.td.3 09/03/18 Doxycycline 100 mg PO BID 7 Days #14 capsule 09/17/18 Methenamine Hippurate [Hiprex] 1 gm PO BID #60 tablet 09/17/18 Following Prescrptions Were Given to Patient: Doxycycline 100 mg PO BID 7 Days #14 capsule Methenamine Hippurate [Hiprex] 1 gm PO BID #60 tablet Primary Care Physician: Kleber Martin DO [Primary Care Provider] - Please follow up with your Primary Care Physician in: in 2 weeks Please Follow Up With: Justina May MD When: in office-call for appointment Medical Necessity - Tobacco Use Smoking Status: Never smoker Tobacco Use: Non-smoker Meaningful Use Info Meaningful Use Diagnoses (Choose all that apply): None applicable Code Visit Inpatient E&M: 45776 Disch Hosp
--- NOTE | 2018-09-18 12:15 | CASEMGMT ---
[facility] CM DC PHONE CALL DC DATE: 09/17/18 DC Disposition: Home LACE/STRATA: 26/08 Attempted call to home phone. 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 Shraddha CACERES BSN ACM
--- NOTE | 2018-09-19 08:41 | CON.PCM_ITS ---
Problem List (1) Pancreas cancer Status: Chronic Qualifiers: Pancreatic malignancy location: unspecified Qualified Code(s): C25.9 - Malignant neoplasm of pancreas, unspecified Reason for Consult Date of Consultation: 09/19/18 Reason for Consultation: Gastric outlet obstruction History of Present Illness: The patient is a 58 year old M who has gastric outlet obstruction a PEG tube for decompression from pancreatic cancer. He is receiving treatment for his nonresectable cancer. He was admitted to the hospital with UTI. I was consulted to discuss feeding tube placement so the patient can be off TPN. Past Medical History Past Medical History (Chronic Problems): Chronic Problems (Last Reviewed 09/03/18 @ 08:49 by Nicolette Hylton) GI (gastrointestinal bleed) (Chronic) Pancreas cancer (Chronic) Peritoneal carcinomatosis (Chronic) Hematuria (Chronic) While on anticoagulants DVT of upper extremity (deep vein thrombosis) (Chronic) January 2018 complicating PICC line Hydronephrosis, left (Chronic) Status post stent May 2018 Cancer-related pain (Chronic) Gastrostomy in place (Chronic) Medical History: Medical History (Last Reviewed 09/03/18 @ 08:49 by Nicolette Hylton) PORT PLACEMENT 08-31-18 Pancreas cancer C25.9 left hydronephrosis stent placement 2018 peg tube placement Allergies latex Allergy (Verified 09/14/18 05:43) Rash Home Medications: Ambulatory Orders Medication Instructions Recorded Bromelains [Bromelain] 500 gm MC BID PRN 01/17/18 Ondansetron [Zofran Odt] 8 mg PO Q8H PRN PRN 01/17/18 Oxycodone [Oxyir] 5 mg PO Q6H PRN PRN 01/17/18 Dexamethasone [Decadron] 2 mg PO DAILY 07/18/18 Diphenoxylate HCl/Atropine 2 ea PO Q6H 07/18/18 [Diphenoxylate-Atrop 2.5-0.025] Hydromorphone HCl 2 mg PO Q6H PRN 07/18/18 Oxybutynin Chloride [Oxybutynin 10 mg PO DAILY 07/18/18 Chloride ER] Lorazepam [Ativan] 1 mg PO DAILY PRN PRN 08/06/18 Pregabalin [Lyrica] 75 mg PO BID 03/25/19 Promethazine HCl 12.5 mg PO Q6H PRN 08/06/18 Pantoprazole Sodium [Protonix] 40 mg PO BID 30 Days #60 tablet 08/14/18 Scopolamine [Transderm-Scop] 1.5 mg TD X1 30 Days #10 patch.td.3 09/03/18 Doxycycline 100 mg PO BID 7 Days #14 capsule 09/17/18 Methenamine Hippurate [Hiprex] 1 gm PO BID #60 tablet 09/17/18 Surgical History: Surgical History (Last Reviewed 09/03/18 @ 08:49 by Nicolette Hylton) History of hip replacement Z96.649 1994 left hip Hx of cholecystectomy Z90.49 2017 Surgical History: - - PEG tube, Mediport Psychiatric History: No pertinent psych hx Lives: Spouse/ Significant Other Smoking Status: Never smoker Tobacco Use: Non-smoker Alcohol: None Drugs: None - *Family History Paternal Family History: Family History (Last Reviewed 09/03/18 @ 08:49 by Nicolette Hylton) Father Heart disease Diabetes Sister Breast cancer History Items: No pertinent history Maternal Family History: Family History (Last Reviewed 09/03/18 @ 08:49 by Nicolette Hylton) Father Heart disease Diabetes Sister Breast cancer History Items: No pertinent history Review of Systems Constitutional: Reports: Anorexia. Denies: Fever HEENT: Denies: Difficulty Swallowing Cardiovascular: Denies: Chest Pain Respiratory: Denies: Cough, Shortness of Breath Gastrointestinal: Reports: Nausea. Denies: Abdominal Pain, Hematemesis, Hematochezia, Vomiting Genitourinary: Denies: Dysuria Musculoskeletal: Denies: Joint Tenderness Skin: Denies: Dryness Psychiatric: Denies: Anxiety - Physical Exam General: Alert, Oriented x3 HEENT: PERRLA Neck: No JVD Lungs: Normal air movement Cardiovascular: Regular rate, Regular Rhythm Abdomen: Soft, Non Tender, Non-Distended, - - PEG tube in place Vital Signs Temp Pulse Resp BP Pulse Ox 98.2 F 50 L 16 111/67 99 09/17/18 15:37 09/17/18 15:37 09/17/18 15:37 09/17/18 15:37 09/17/18 15:37 Oxygen Flow Rate (L/min) 2 Oxygen Delivery Method Room Air Weight: 198 lb 13.711 oz Body Mass Index (BMI) 22.4 Intake and Output for Last 24 Hours 09/17/18 09/18/18 09/19/18 23:59 23:59 23:59 Intake Total 3145 / 3145 Output Total 1800 / 1800 Balance 1345 / 1345 Microbiology Past 72 Hours 09/14/18 06:08 Blood Culture - Final Blood Culture (Wb) - Port No growth in 5 days. 09/14/18 06:03 Blood Culture - Final Blood Culture (Wb) - Anticubital Left No growth in 5 days. 09/14/18 06:40 Urine Culture - Final Urine, Clean Catch Staphylococcus haemolyticus Assessment/Plan All Active Problems (Last Reviewed 09/03/18 @ 08:49 by Nicolette Hylton) Ureteral obstruction, left (Resolved) CINV (chemotherapy-induced nausea and vomiting) (Resolved) Hypokalemia (Acute) Encounter for adjustment or management of vascular access device (Acute) Pyelonephritis (Acute) Pyelonephritis, acute (Acute) 58-year-old male with pancreatic cancer and gastric outlet obstruction 1. The patient is TPN dependent at home and has a PEG tube for decompression. I believe it is reasonable for the patient to have a feeding tube placed to get off TPN. Upper GI was done which shows complete obstruction with no outflow from the stomach. 2. Patient is having discussion with his oncologist tomorrow. If he decides on having a G-tube placed he can see me as an outpatient I will place laparoscopic J-tube for feeding. Gary Peters MD Pager: [facility] [address] [place] [address], [address] [place] [address] Office:
== END 2018-09-17 18:36 | disposition home or self-care (01) | DRG 690 ==
LOC: ED 06:20 → MS3 09-17 07:22
PROVIDERS: Internal Medicine Infectious Disease; Admitting Provider Internal Medicine; Emergency Provider Emergency Medicine; Family Provider Family Medicine; PCP Family Medicine; Visit Provider Internal Medicine
DX: N10 Acute pyelonephritis (principal); C25.9 Malignant neoplasm of pancreas, unspecified; C78.6 Secondary malignant neoplasm of retroperitoneum and peritoneum; K31.1 Adult hypertrophic pyloric stenosis; D61.818 Other pancytopenia; B95.7 Other staphylococcus as the cause of diseases classified elsewhere; E87.6 Hypokalemia; G62.0 Drug-induced polyneuropathy; T45.1X5A Adverse effect of antineoplastic and immunosuppressive drugs, initial encounter; Z86.718 Personal history of other venous thrombosis and embolism; Z93.1 Gastrostomy status; N13.30 Unspecified hydronephrosis
CPT/HCPCS: 36415; 36591; 71045; 74176; 74246; 80048; 80053; 80202; 81001; 83605; 85025; 85610; 85730; 87040; 87077; 87086; 87088; 87186; 93005; 97802; 97803; 99284; J7030; J7040; J7050; A4216; J2405

== ENCOUNTER → 2018-09-24 09:24 | Outpatient (CLI) | payer BC, SELFPAY ==
[2018-09-14 10:51] VITALS: BMI 22.4
[2018-09-24 09:47] LABS: Absolute Lymphocyte Count 1.04 X10^3/ul (0.83-4.51); Absolute Neutrophil Count 2.8 X10^3/uL (2.0-7.7); Basophil# 0.01 X10^3/uL; Basophil% 0.2 % (0-1); Eosinophil# 0.06 X10^3/uL; Eosinophils% 1.3 % (0-5); Hematocrit 27.8 % (40-54); Hemoglobin 9.1 g/dl (13.0-16.5); Lymphocyte # 1.04 X10^3/ul (4.0); Lymphocyte % 22.5 % (19-41); Mean Corp Hgb Conc 32.7 g/gl (32-36); Mean Corpuscular Hgb 32.9 pg (27.0-32.0); Mean Corpuscular Volume 100.4 fL (80-94); Mean Platelet Vol. 11.1 fl (6.2-12.0); Monocyte# 0.71 X10^3/uL; Monocyte% 15.3 % (0-10); Neutrophil # 2.78 X10^3/uL (2.7-7.7); Neutrophil % 60.1 % (47-70); Platelet Count 123 K/mm3 (150-450); RBC Distribution Width CV 17.5 % (11.6-14.6); RBC Distribution Width SD 62.3 fl (35.1-43.9); Red Blood Count 2.77 M/mm3 (4.6-6.2); White Blood Count 4.6 K/mm3 (4.4-11.0)
[2018-09-24 09:48] LABS: POSITIVE COUNT NO; POSITIVE DIFFERENTIAL NO; POSITIVE MORPHOLOGY NO
[2018-09-24 10:03] LABS: ALB/GLOB Ratio 0.6 RATIO (0.9-2.4); AST(SGOT) 63 U/L (15-37); Alanine Aminotransfer ALT/SGPT 78 U/L (16-61); Albumin, Serum 2.1 g/dL (3.2-5.0); Alkaline Phosphatase 483 U/L (45-117); Anion Gap 4 (5-15); BUN 19 mg/dL (7-18); BUN/Creat Ratio 40.5 RATIO (10-20); Calcium,Total 7.5 mg/dL (8.5-10.1); Chloride 110 mmol/L (98-107); Creatinine, Serum 0.47 mg/dL (0.70-1.30); EST Glomerular Filtration Rate 194 mL/min (>60); Est Glom Filt Rate - Afr Amer 235 mL/min (>60); Globulin 3.4 g/dL (2.2-4.2); Glucose 131 mg/dL (74-106); Phosphorus 2.4 mg/dL (2.5-4.9); Potassium 3.5 mmol/L (3.5-5.1); Prealbumin 13.7 mg/dL (20.0-40.0); Protein, Total 5.5 g/dL (6.4-8.2); Sodium Level 144 mmol/L (136-145); Triglycerides 99 mg/dL
[2018-09-24 17:25] LABS: Xtra Tube EP Lab EXTRA TUBE
[2018-09-24 17:37] LABS: Xtra Tube EP Lab EXTRA TUBE
== END ==
PROVIDERS: Family Provider Family Medicine; PCP Family Medicine
DX: C25.9 Malignant neoplasm of pancreas, unspecified (principal)
CPT/HCPCS: 36591; 80053; 83735; 84100; 84134; 84478; 85025; A4216

== ENCOUNTER 2018-10-15 09:30 | Inpatient (IN) | payer BC, SELFPAY ==
[2018-10-15] VITALS (7 sets, daily range): BP systolic 105–126; BP diastolic 62–76; PULSE 52–90; RESP 15–17; TEMP 36.6–36.7; O2SAT 94–97; BMI 22.7; BMI 22.3
--- NOTE | 2018-10-15 10:04 | EKG12_ITS ---
Test Reason : NAUSEA/VOMITING Blood Pressure : / mmHG Vent. Rate : 067 BPM Atrial Rate : 067 BPM P-R Int : 180 ms QRS Dur : 118 ms QT Int : 468 ms P-R-T Axes : 013 -41 -14 degrees QTc Int : 494 ms Normal sinus rhythm Left axis deviation Left ventricular hypertrophy with QRS widening Nonspecific ST and T wave abnormality Prolonged QT Abnormal ECG Confirmed by DAVID SIMMONS, JAHAIRA ([id number]), greeting card editor SUDHAKAR ENAMORADO ([id number]) on 10/19/2018 6:29:11 AM Referred By: Sabrina Way Confirmed By:JAHAIRA HERNANDEZ MD
[2018-10-15 10:19] LABS: Absolute Lymphocyte Count 1.46 X10^3/ul (0.83-4.51); Absolute Neutrophil Count 1.3 X10^3/uL (2.0-7.7); Basophil# 0.01 X10^3/uL; Basophil% 0.3 % (0-1); Eosinophil# 0.11 X10^3/uL; Eosinophils% 3.5 % (0-5); Hematocrit 33.3 % (40-54); Hemoglobin 11.2 g/dl (13.0-16.5); Lymphocyte # 1.46 X10^3/ul (4.0); Lymphocyte % 46.1 % (19-41); Mean Corp Hgb Conc 33.6 g/gl (32-36); Mean Corpuscular Hgb 32.2 pg (27.0-32.0); Mean Corpuscular Volume 95.7 fL (80-94); Mean Platelet Vol. 10.7 fl (6.2-12.0); Monocyte# 0.31 X10^3/uL; Monocyte% 9.8 % (0-10); Neutrophil # 1.27 X10^3/uL (2.7-7.7); POSITIVE COUNT NO; POSITIVE DIFFERENTIAL NO; POSITIVE MORPHOLOGY NO; Platelet Count 68 K/mm3 (150-450); RBC Distribution Width CV 17.2 % (11.6-14.6); RBC Distribution Width SD 58.5 fl (35.1-43.9); Red Blood Count 3.48 M/mm3 (4.6-6.2); White Blood Count 3.2 K/mm3 (4.4-11.0)
[2018-10-15] MEDS: LORazepam 2 MG/ML Syringe 1 MG IV (10:24)
[2018-10-15] MEDS: 0.9% Normal Saline 1,000 ML 1000 ML IV (10:24)
[2018-10-15] MEDS: Ondansetron 4 MG/2 ML Vial IV (10:24)
[2018-10-15 10:30] LABS: ALB/GLOB Ratio 0.6 RATIO (0.9-2.4); AST(SGOT) 71 U/L (15-37); Alanine Aminotransfer ALT/SGPT 97 U/L (16-61); Albumin, Serum 2.6 g/dL (3.2-5.0); Alkaline Phosphatase 516 U/L (45-117); Anion Gap 8 (5-15); BUN 33 mg/dL (7-18); BUN/Creat Ratio 43.4 RATIO (10-20); Calcium,Total 8.3 mg/dL (8.5-10.1); Chloride 85 mmol/L (98-107); Creatinine, Serum 0.76 mg/dL (0.70-1.30); EST Glomerular Filtration Rate 111 mL/min (>60); Est Glom Filt Rate - Afr Amer 135 mL/min (>60); Estimated Creatinine Clearance 125.56 ml/min; Globulin 4.1 g/dL (2.2-4.2); Glucose 142 mg/dL (74-106); Lipase 141 U/L (73-393); Potassium 2.1 mmol/L (3.5-5.1); Protein, Total 6.7 g/dL (6.4-8.2); Sodium Level 135 mmol/L (136-145)
--- NOTE | 2018-10-15 10:39 | ED.RN ---
POTASSIUM 2.[address] LAB[address] DR DARBY AWARE
[2018-10-15] MEDS: Potassium Chloride 10mEq/100mL 10 MEQ/100 ML IV.SOLN. 100 MEQ IV BOLUS ×8 (10:55→20:54)
--- NOTE | 2018-10-15 11:35 | HP.PCM_ITS ---
Problem List (1) Hypokalemia, gastrointestinal losses Status: Acute (2) GI (gastrointestinal bleed) Status: Chronic Qualifiers: GI bleed type/associated pathology: unspecified gastrointestinal hemorrhage type Qualified Code(s): K92.2 - Gastrointestinal hemorrhage, unspecified (3) Pancreas cancer Status: Chronic Qualifiers: Pancreatic malignancy location: unspecified Qualified Code(s): C25.9 - Malignant neoplasm of pancreas, unspecified (4) Peritoneal carcinomatosis Status: Chronic (5) Hematuria Status: Chronic Comment: While on anticoagulants (6) DVT of upper extremity (deep vein thrombosis) Status: Chronic Comment: January 2018 complicating PICC line (7) Hydronephrosis, left Status: Chronic Comment: Status post stent May 2018 (8) Ureteral obstruction, left Status: Resolved (9) CINV (chemotherapy-induced nausea and vomiting) Status: Resolved (10) Cancer-related pain Status: Chronic (11) Gastrostomy in place Status: Chronic (12) Hypokalemia Status: Acute (13) Polypharmacy Status: Inactive (14) Encounter for adjustment or management of vascular access device Status: Acute (15) Pyelonephritis Status: Resolved (16) Pyelonephritis, acute Status: Resolved History of Present Illness Date of Admission: 10/15/18 Chief Complaint: Intractable nausea vomiting Patient is a 58-year-old male with pancreatic cancer with peritoneal carcinomatosis resulting in gastric outlet obstruction as well as left hydronephrosis requiring stent placement who presented nausea and vomiting. Per patient and the spouse patient has not been able to keep any food down. He was apparently supposed to receive chemotherapy on 10/15/2018 lab work performed demonstrated severe hypokalemia. Patient was therefore sent to the ED. Repeat labs demonstrated potassium of 2.1 repletion initiated in the ED and patient admitted to a monitored bed for further management Past Medical History Past Medical History (Chronic Problems): Chronic Problems (Last Reviewed 10/15/18 @ 08:13 by Jumana Marvin) GI (gastrointestinal bleed) (Chronic) Pancreas cancer (Chronic) Peritoneal carcinomatosis (Chronic) Hematuria (Chronic) While on anticoagulants DVT of upper extremity (deep vein thrombosis) (Chronic) January 2018 complicating PICC line Hydronephrosis, left (Chronic) Status post stent May 2018 Cancer-related pain (Chronic) Gastrostomy in place (Chronic) Medical History: Medical History (Last Reviewed 10/15/18 @ 12:12 by Víctor Dunaway MD) PORT PLACEMENT 08-31-18 Pancreas cancer C25.9 left hydronephrosis stent placement 2018 peg tube placement Allergies latex Allergy (Verified 10/15/18 09:30) Rash Home Medications: Ambulatory Orders Medication Instructions Recorded Bromelains [Bromelain] 500 gm MC BID PRN 01/17/18 Ondansetron [Zofran Odt] 8 mg PO Q8H PRN PRN 01/17/18 Oxycodone [Oxyir] 5 mg PO Q6H PRN PRN 01/17/18 Dexamethasone [Decadron] 2 mg PO DAILY 07/18/18 Diphenoxylate HCl/Atropine 2 ea PO Q6H 07/18/18 [Diphenoxylate-Atrop 2.5-0.025] Hydromorphone HCl 2 mg PO Q6H PRN 07/18/18 Oxybutynin Chloride [Oxybutynin 10 mg PO DAILY 07/18/18 Chloride ER] Lorazepam [Ativan] 1 mg PO DAILY PRN PRN 08/06/18 Pregabalin [Lyrica] 75 mg PO BID 08/06/18 Promethazine HCl 12.5 mg PO Q6H PRN 08/06/18 Scopolamine [Transderm-Scop] 1.5 mg TD X1 30 Days #10 patch.td.3 09/03/18 Methenamine Hippurate [Hiprex] 1 gm PO BID #60 tablet 09/17/18 fentaNYL patch [Duragesic Patch] 12 mcg TRANSDERM. Q3D 10/01/18 Ondansetron [Ondansetron Odt] 8 mg PO Q8H PRN PRN 10 Days #30 10/03/18 tab.rapdis Surgical History: Surgical History (Last Reviewed 10/15/18 @ 12:12 by Víctor Dunaway MD) History of hip replacement Z96.649 1994 left hip Hx of cholecystectomy Z90.49 2016 Surgical History: - - PEG tube, Mediport Psychiatric History: No pertinent psych hx Smoking Status: Former smoker - *Family History Paternal Family History: Family History (Last Reviewed 10/15/18 @ 12:13 by Víctor Dunaway MD) Father Heart disease Diabetes Sister Breast cancer History Items: No pertinent history Maternal Family History: Family History (Last Reviewed 10/15/18 @ 12:13 by Víctor Dunaway MD) Father Heart disease Diabetes Sister Breast cancer History Items: No pertinent history Review of Systems Constitutional: Reports: Anorexia, Malaise, Fatigue. Denies: Chills, Fever, Night Sweats, Weight Change HEENT: Denies: Head Aches, Sinus Congestion, Sinus Drainage Cardiovascular: Denies: Chest Pain, Orthopnea, Palpitations, Paroxysmal Noc. Dyspnea Respiratory: Denies: Cough, Shortness of breath at rest, Shortness of breath up on exertion, Sputum production Gastrointestinal: Reports: Abdominal Pain, Nausea, Vomiting. Denies: Hematemesis, Hematochezia, Melena Genitourinary: Denies: Dysuria, Frequency, Hematuria Musculoskeletal: Denies: Joint Pain, Joint Tenderness Skin: Denies: Rash Neurological: Denies: Focal weakness, Numbness, Tingling Psychiatric: Denies: Homicidal Ideations, Suicidal Ideations Hematologic/ Lymphatic: Denies: Easy Bruising, Easy Bleeding VTE Information - Inpt Only VTE Present on Admission: No VTE Mechan Device Prophylaxis: None VTE Pharm Prophylaxis ordered?: No Reason prophylaxis not ordered:: Medical Contraindication Patient Problems: Active and Suspected Problems (Last Reviewed 10/15/18 @ 08:13 by Jumana Marvin) Hypokalemia, gastrointestinal losses (Acute) Objective: GENERAL: Patient appears ill looking HEENT: Atraumatic; EYES; Anicteric, Normal Conjunctiva NECK; supple, normal thyroid, RESPIRATORY: Diminished to auscultation CARDIOVASCULAR: Regular S1 S2, GI: soft, non-tender, normoactive bowel sounds, : No Renal angle tenderness; EXTREMITIES: No edema, no clubbing, MUSCULOSKELETAL: No Joint Tenderness; NEURO: Awake; no lateralizing signs. SKIN: No Rash PSYCH;flat affect - Physical Exam Vital Signs Temp Pulse Resp BP Pulse Ox 98.1 F 90 17 111/73 97 10/15/18 09:30 10/15/18 09:30 10/15/18 09:30 10/15/18 09:30 10/15/18 09:30 Oxygen Delivery Method Room Air Weight: 84.822 kg Body Mass Index (BMI) 22.7 Laboratory Tests Past 24 Hrs 10/15/18 10/15/18 09:53 09:53 WBC 3.2 L RBC 3.48 L Hgb 11.2 L Hct 33.3 L MCV 95.7 H MCH 32.2 H MCHC 33.6 RDW 17.2 H RDW Differential 58.5 H Plt Count 68 L MPV 10.7 Immature Gran % (Auto) 0.300 Neut % (Auto) 40.0 L Lymph % (Auto) 46.1 H [place] % (Auto) 9.8 Eos % (Auto) 3.5 Baso % (Auto) 0.3 Absolute Neuts (auto) 1.3 L Absolute Lymphs (auto) 1.46 Total Counted Not Reportable Sodium 135 L Potassium 2.1 L* Chloride 85 L Carbon Dioxide 42.0 H Anion Gap 8 BUN 33 H Creatinine 0.76 Estim Creat Clear Calc 125.56 Est GFR (MDRD) Af Amer 135 Est GFR (MDRD) Non-Af 111 BUN/Creatinine Ratio 43.4 H Glucose 142 H Calcium 8.3 L Total Bilirubin 2.00 H AST 71 H ALT 97 H Alkaline Phosphatase 516 H Troponin I < 0.015 Total Protein 6.7 Albumin 2.6 L Globulin 4.1 Albumin/Globulin Ratio 0.6 L Lipase 141 Assessment/Plan All Active Problems (Last Reviewed 10/15/18 @ 08:13 by Jumana Marvin) Hypokalemia, gastrointestinal losses (Acute) Ureteral obstruction, left (Resolved) CINV (chemotherapy-induced nausea and vomiting) (Resolved) Hypokalemia (Acute) Encounter for adjustment or management of vascular access device (Acute) Pyelonephritis (Resolved) Pyelonephritis, acute (Resolved) Patient is a 58-year-old male with pancreatic cancer with peritoneal carcinomatosis resulting in gastric outlet obstruction as well as left hydronephrosis requiring stent placement who presented nausea and vomiting 1. Intractable nausea vomiting in a patient with stage IV pancreatic cancer with peritoneal carcinomatosis. Patient has been admitted to regular nursing floor for symptomatic management 2. Hypokalemia secondary to patient intractable nausea vomiting. Admitted to monitored bed for continuous telemetry repletion initiated in the ED, serial potassium ordered for subsequent monitoring 3. Stage IV pancreatic cancer with peritoneal carcinomatosis with resultant gastric outlet obstruction as well as left hydronephrosis patient currently receiving chemo as outpatient patient's oncologist is Dr. Dave patient was scheduled to have received chemo on the day of his admission and had to be abandoned in view of his significant electrolyte abnormalities 4. Gastric outlet obstruction with intractable nausea vomiting patient has apparently not been able to keep any diet and is currently receiving TPN 5. Severe protein calorie malnutrition as a result of patient gastric outlet obstruction patient is on TPN reordered 6. Anemia secondary to anemia of malignancy monitoring H&H with plans to transfer patient becomes symptomatic or hemoglobin falls below 7 7. Thrombocytopenia chemo induced monitoring 8. 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 DVT prophylaxis avoided chemoprophylaxis in view of patient significant low platelet count Advance planning; did discuss with the patient and and patient's regarding advanced directives as well as CODE STATUS. Did explain the various scenarios involved ( FULL CODE, DNR CCA, DNR CCA with no intubation, and DNR CC and what each meant) patient elected remain full code. Order was placed. Time spent on discussion 17 minutes. Code Visit OBSV E&M: 33132 Initial observation care L3 Procedures: 07531 Advncd Care Plan 30 Min
--- NOTE | 2018-10-15 11:47 | ED.DCSUM_ITS ---
- ER Visit Summary Date of Service: 10/15/18 Chief Complaint: [Intractable nausea and vomiting, dehydration, hypokalemia] History of Present Illness: The patient is a 58 M [the emergency department with symptoms for over a month. Patient currently being treated for pancreatic cancer. Patient was to have a chemo infusion today but his blood counts were too low to have it done. Patient also was noted to be hypokalemic today. Patient currently receiving TPN and has had a problem with hypokalemia. Patient states that he cannot keep anything down. Patient generally feels weak. He describes diffuse abdominal discomfort which is chronic. Patient does have a history of a G-tube. He denies any fevers. He denies urinary symptoms. He has chronic diarrhea and denies blood in his stool. He denies chest pain or shortness of breath.] Physical Examination: [HEENT-PERRLA, EOMI. Cranial nerves II through XII grossly intact. TMs clear. Mucous membranes dry. No adenopathy. Cardiovascular-regular rate and rhythm without murmur or ectopy Lungs-clear to auscultation, chest wall stable without crepitus or subcu emphysema Abdomen-normoactive bowel sounds, soft. Patient has tenderness diffusely about the upper abdomen. There is no rebound, rigidity, or perineal signs. Extremities-intact ?4, normal range of motion, normal pulses, atraumatic] Test Results: [CBC with differential showed a white count of 3.2, hemoglobin 11, hematocrit 33, platelets 68,000. Chemistry showed a sodium 135, potassium 2.1, chloride 85, CO2 42, glucose 142, BUN 33 and creatinine 0.76. LFTs were elevated with a total bili of 2.0, alk phos of 516, ALT of 97, AST 71, lipase was 141. Troponin is less than 0.015. EKG on arrival shows sinus rhythm with a ventricular rate of 67 bpm with some nonspecific ST changes.] Emergency Department Course and Treatment: [Patient was given a liter of the same fluid bolus and ordered 40 mEq of potassium chloride IV.] Treatment Plan: [Admit for hydration and electrolyte abnormality.] Disposition: [Admit] Impression: [Dehydration Intractable nausea vomiting Hypokalemia] This note was generated with [employer] dictation software. It may contain incorrect words, spelling, and punctuation that were not noted in review of the chart prior to signing ED Disposition - Plan for ED Patient: Referrals: Kleber Martin DO [Primary Care Provider] -
[2018-10-15] MEDS: fentaNYL 25 MCG Patch TRANSDERM. (15:05)
[2018-10-15] MEDS: 0.9% NaCl VAD Flush 10 ML IV ×3 (16:23→17:31)
[2018-10-15 16:54] LABS: Anion Gap 5 (5-15); BUN 27 mg/dL (7-18); BUN/Creat Ratio 42.5 RATIO (10-20); Calcium,Total 7.7 mg/dL (8.5-10.1); Chloride 91 mmol/L (98-107); Creatinine, Serum 0.64 mg/dL (0.70-1.30); EST Glomerular Filtration Rate 137 mL/min (>60); Est Glom Filt Rate - Afr Amer 166 mL/min (>60); Estimated Creatinine Clearance 146.34 ml/min; Glucose 122 mg/dL (74-106); Potassium 2.3 mmol/L (3.5-5.1); Sodium Level 139 mmol/L (136-145)
[2018-10-15] MEDS: HYDROmorphone 1 MG/ML Syringe IV ×2 (17:30→21:32)
[2018-10-15 21:52] LABS: Bedside Glucose 133 mg/dL (70-110)
[2018-10-15 23:13] LABS: Potassium 2.5 mmol/L (3.5-5.1)
[2018-10-16] VITALS (15 sets, daily range): BP systolic 101–117; BP diastolic 52–76; PULSE 52–81; RESP 16–18; TEMP 36.4–36.9; O2SAT 96–100
[2018-10-16] MEDS: HYDROmorphone 1 MG/ML Syringe IV ×6 (01:39→21:24)
[2018-10-16 05:26] LABS: Bedside Glucose 207 mg/dL (70-110)
[2018-10-16 06:21] LABS: Absolute Lymphocyte Count 1.07 X10^3/ul (0.83-4.51); Absolute Neutrophil Count 0.7 X10^3/uL (2.0-7.7); Eosinophil# 0.12 X10^3/uL; Eosinophils% 5.7 % (0-5); Hematocrit 26.4 % (40-54); Hemoglobin 8.4 g/dl (13.0-16.5); Lymphocyte # 1.07 X10^3/ul (4.0); Lymphocyte % 51.2 % (19-41); Mean Corp Hgb Conc 31.8 g/gl (32-36); Mean Corpuscular Hgb 31.5 pg (27.0-32.0); Mean Corpuscular Volume 98.9 fL (80-94); Monocyte# 0.25 X10^3/uL; Neutrophil # 0.65 X10^3/uL (2.7-7.7); Neutrophil % 31.1 % (47-70); RBC Distribution Width CV 16.9 % (11.6-14.6); RBC Distribution Width SD 57.1 fl (35.1-43.9); Red Blood Count 2.67 M/mm3 (4.6-6.2); White Blood Count 2.1 K/mm3 (4.4-11.0)
[2018-10-16 06:22] LABS: Anion Gap 6 (5-15); BUN 24 mg/dL (7-18); BUN/Creat Ratio 42.6 RATIO (10-20); Calcium,Total 7.6 mg/dL (8.5-10.1); Chloride 93 mmol/L (98-107); Creatinine, Serum 0.56 mg/dL (0.70-1.30); EST Glomerular Filtration Rate 157 mL/min (>60); Est Glom Filt Rate - Afr Amer 190 mL/min (>60); Estimated Creatinine Clearance 167.24 ml/min; Glucose 176 mg/dL (74-106); Potassium 2.6 mmol/L (3.5-5.1); Sodium Level 140 mmol/L (136-145)
[2018-10-16 06:38] LABS: Differential Indicated SCAN CRITERIA MET; POSITIVE COUNT YES; POSITIVE DIFFERENTIAL YES; POSITIVE MORPHOLOGY YES
[2018-10-16 06:40] LABS: Platelet Count 23 K/mm3 (150-450)
[2018-10-16 06:42] LABS: Anisocytosis 1+; Platelet Estimate MKD DEC (ADEQ)
[2018-10-16 06:43] LABS: Hypochromasia 1+; Macrocytosis RARE; Ovalocyte RARE
[2018-10-16] MEDS: oxyCODONE 5 MG Tablet 10 MG PO (08:03)
[2018-10-16] MEDS: Potassium Chloride 20mEq/100mL 20 MEQ/100 ML IV.SOLN. 100 MEQ IV ×2 (08:04→09:11)
--- NOTE | 2018-10-16 09:02 | PCM.PN.HOSP ---
Patient Problems: Active and Suspected Problems (Last Reviewed 10/15/18 @ 12:12 by Víctor Dunaway MD) Hypokalemia, gastrointestinal losses (Acute) Intractable nausea and vomiting (Acute) Subjective: Patient is a 58-year-old male with pancreatic cancer with peritoneal carcinomatosis resulting in gastric outlet obstruction as well as left hydronephrosis requiring stent placement who presented nausea and vomiting. Patient was found to have significantly low potassium level admitted to monitored bed where he is currently being managed. Potassium level still remains low as of 10/16/2018. Platelet count did drop to 60 to 23. Consultation placed to patient's oncologist Also complains of bloody drainage from his G-tube. An order was given for initiation of Protonix drip and platelet transfusion Objective: GENERAL: Patient appears ill looking HEENT: Atraumatic; EYES; Anicteric, Normal Conjunctiva NECK; supple, normal thyroid, RESPIRATORY: Diminished to auscultation CARDIOVASCULAR: Regular S1 S2, GI: soft, non-tender, normoactive bowel sounds, : No Renal angle tenderness; EXTREMITIES: No edema, no clubbing, MUSCULOSKELETAL: No Joint Tenderness; NEURO: Awake; no lateralizing signs. SKIN: No Rash PSYCH;flat affect Vitals/I&O's: Vital Signs Temp Pulse Resp BP Pulse Ox 97.6 F L 53 L 16 101/60 98 10/16/18 08:07 10/16/18 08:53 10/16/18 08:07 10/16/18 08:07 10/16/18 08:07 Oxygen Delivery Method Room Air Weight: 83.25 kg Body Mass Index (BMI) 22.3 Intake and Output for Last 24 Hours 10/14/18 10/15/18 10/16/18 23:59 23:59 23:59 Intake Total 2982 / 2982 Output Total 1000 / 1000 650 / 650 Balance -1000 / -1000 2332 / 2332 Laboratory Results 10/15/18 09:53: WBC 3.2 L, RBC 3.48 L, Hgb 11.2 L, Hct 33.3 L, MCV 95.7 H, MCH 32.2 H, MCHC 33.6, RDW 17.2 H, RDW Differential 58.5 H, Plt Count 68 L, MPV 10.7, Immature Gran % (Auto) 0.300, Neut % (Auto) 40.0 L, Lymph % (Auto) 46.1 H, Green % (Auto) 9.8, Eos % (Auto) 3.5, Baso % (Auto) 0.3, Absolute Neuts (auto) 1.3 L, Absolute Lymphs (auto) 1.46, Total Counted Not Reportable 10/15/18 09:53: Sodium 135 L, Potassium 2.1 L*, Chloride 85 L, Carbon Dioxide 42.0 H, Anion Gap 8, BUN 33 H, Creatinine 0.76, Estim Creat Clear Calc 125.56, Est GFR (MDRD) Af Amer 135, Est GFR (MDRD) Non-Af 111, BUN/Creatinine Ratio 43.4 H, Glucose 142 H, Calcium 8.3 L, Total Bilirubin 2.00 H, AST 71 H, ALT 97 H, Alkaline Phosphatase 516 H, Troponin I < 0.015, Total Protein 6.7, Albumin 2.6 L, Globulin 4.1, Albumin/Globulin Ratio 0.6 L, Lipase 141 10/15/18 16:17: Sodium 139, Potassium 2.3 L*, Chloride 91 L, Carbon Dioxide 43.0 H, Anion Gap 5, BUN 27 H, Creatinine 0.64 L, Estim Creat Clear Calc 146.34, Est GFR (MDRD) Af Amer 166, Est GFR (MDRD) Non-Af 137, BUN/Creatinine Ratio 42.5 H, Glucose 122 H, Calcium 7.7 L 10/15/18 21:49: POC Glucose 133 H 10/15/18 22:40: Potassium 2.5 L* 10/16/18 05:15: POC Glucose 207 H 10/16/18 05:35: Sodium 140, Potassium 2.6 L*, Chloride 93 L, Carbon Dioxide 41.0 H, Anion Gap 6, BUN 24 H, Creatinine 0.56 L, Estim Creat Clear Calc 167.24, Est GFR (MDRD) Af Amer 190, Est GFR (MDRD) Non-Af 157, BUN/Creatinine Ratio 42.6 H, Glucose 176 H, Calcium 7.6 L 10/16/18 05:35: WBC 2.1 L, RBC 2.67 L, Hgb 8.4 L, Hct 26.4 L, MCV 98.9 H, MCH 31.5, MCHC 31.8 L, RDW 16.9 H, RDW Differential 57.1 H, Plt Count 23 L*, MPV TNP, Immature Gran % (Auto) 0.000, Neut % (Auto) 31.1 L, Lymph % (Auto) 51.2 H, Green % (Auto) 12.0 H, Eos % (Auto) 5.7 H, Baso % (Auto) 0.0, Absolute Neuts (auto) 0.7 L, Absolute Lymphs (auto) 1.07, Total Counted Not Reportable, Differential Comment SEE COMMENT, Diff Path Review May foll, Platelet Estimate MKD DEC, Hypochromasia 1+, Anisocytosis 1+, Macrocytosis RARE, Ovalocytes RARE Current Medications Al Hydroxide/Mg Hydroxide (Mylanta Ii) 30 ml PO Q6H PRN PRN PRN Reason: Gastric Burning Albuterol Sulfate (Ventolin Aerosols) 2.5 mg INHALATION Q2H PRN PRN PRN Reason: Shortness of Breath/Wheezing Dextrose (D50w Syringe) 0 gm IV X1 PRN; Protocol PRN Reason: Hypoglycemia Fentanyl (Duragesic Patch) 25 mcg TRANSDERM. Q3D [facility] Last Admin: 10/15/18 15:05 Dose: 25 mcg Glucagon () 1 mg IM .X1 PRN PRN Reason: Hypoglycemia Guaifenesin (Robitussin) 20 ml PO Q4H PRN PRN PRN Reason: COUGH Heparin Sodium (Beef Lung) () 50 units IV UD PRN PRN Reason: HEPARIN FLUSH Hydromorphone HCl (Dilaudid Inj) 1 mg IV Q4H PRN PRN PRN Reason: Severe pain (7-10/10) Last Admin: 10/16/18 05:12 Dose: 1 mg Potassium Chloride/Dextrose/Sod Cl () 1,000 mls @ 100 mls/hr IV .Q10H [facility] Last Admin: 10/16/18 08:38 Dose: 100 mls/hr Multivitamins 10 ml/ Chromium/Copper/Manganese/Seleni/Zn 1 ml/ Folic Acid 1 mg/Famotidine 20 mg/ Amino Acids/Electrolytes 2,013.2 mls @ 84 mls/hr IV .[id number] [facility] Stop: 10/17/18 15:47 Amino Acids/Electrolytes (Clinimix E 5%-20% Solution 2000 Ml) 2,000 mls @ 84 mls/hr IV .[id number] [facility] Stop: 10/16/18 15:48 Last Admin: 10/15/18 17:24 Dose: 84 mls/hr Potassium Chloride () 20 meq in 100 mls @ 100 mls/hr IV Q1H [facility] Stop: 10/16/18 09:59 Last Admin: 10/16/18 08:04 Dose: 100 mls/hr Fat Emulsion Intravenous (Intralipid 20%) 250 mls @ 21 mls/hr IV .[id number] [facility] Stop: 10/17/18 03:54 Lorazepam (Ativan Intensol) 1 mg SL Q6H PRN PRN PRN Reason: ANXIETY Magnesium Hydroxide (Milk Of Magnesia) 30 ml PO DAILY PRN PRN PRN Reason: Constipation Melatonin (Melatonin) 3 mg PO QHS PRN PRN PRN Reason: INSOMNIA Ondansetron HCl (Zofran) 4 mg IV Q6H PRN PRN PRN Reason: NAUSEA/VOMITING Oxycodone HCl (Oxyir) 10 mg PO Q4H PRN PRN PRN Reason: Moderate Pain (4-6/10) Last Admin: 10/16/18 08:03 Dose: 10 mg Promethazine HCl (Phenergan) 25 mg IM Q6H PRN PRN PRN Reason: Breakthrough nausea/vomiting Sodium Chloride () 10 ml IV UD PRN PRN Reason: VAD FLUSH Last Admin: 10/15/18 17:31 Dose: 10 ml Throat Lozenges (Cepacol Sore Throat Lozenge) 1 lozenge MUCOUS MEM Q2H PRN PRN PRN Reason: Sore throat or cough Medical Necessity - Tobacco Use Smoking Status: Never smoker Assessment/Plan All Active Problems (Last Reviewed 10/15/18 @ 12:12 by Víctor Dunaway MD) Hypokalemia, gastrointestinal losses (Acute) Intractable nausea and vomiting (Acute) Ureteral obstruction, left (Resolved) CINV (chemotherapy-induced nausea and vomiting) (Resolved) Encounter for adjustment or management of vascular access device (Acute) Pyelonephritis (Resolved) Pyelonephritis, acute (Resolved) Patient is a 58-year-old male with pancreatic cancer with peritoneal carcinomatosis resulting in gastric outlet obstruction as well as left hydronephrosis requiring stent placement who presented nausea and vomiting 1. Intractable nausea vomiting in a patient with stage IV pancreatic cancer with peritoneal carcinomatosis. Patient has been admitted to regular nursing floor for symptomatic management 2. Hypokalemia secondary to patient intractable nausea vomiting. Admitted to monitored bed for continuous telemetry repletion initiated in the ED, serial potassium ordered for subsequent monitoring patient potassium remains significantly low as of 10/16/2018. 3. Stage IV pancreatic cancer with peritoneal carcinomatosis with resultant gastric outlet obstruction as well as left hydronephrosis patient currently receiving chemo as outpatient patient's oncologist is Dr. Dave patient was scheduled to have received chemo on the day of his admission and had to be abandoned in view of his significant electrolyte abnormalities 4. Gastric outlet obstruction with intractable nausea vomiting patient has apparently not been able to keep any diet and is currently receiving TPN 5. Severe protein calorie malnutrition as a result of patient gastric outlet obstruction patient is on TPN reordered 6. 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 Patient started on Protonix drip, as well as monitoring H&H with plans to transfuse if hemoglobin falls below 7 7. Thrombocytopenia chemo induced monitoring significant drop in patient platelet count following admission and order was given for patient to be transfused with 1 unit a pheresis platelets 8. 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 DVT prophylaxis avoided chemoprophylaxis in view of patient significant low platelet count Code Visit Inpatient E&M: 56847 [facility] Hosp L3
[2018-10-16] MEDS: 0.9% NaCl VAD Flush 10 ML IV ×6 (10:10→17:36)
[2018-10-16 12:01] LABS: Bedside Glucose 171 mg/dL (70-110)
--- NOTE | 2018-10-16 12:15 | CASEMGMT ---
Social Work Assessment Referral Date: 10/16/18 Date of Assessment: 10/16/18 Reason for Consult: EMOTIONAL SUPPORT/D/C PLANNING Information obtained from: PATIENT AND , [facility] Living Arrangements: HOME WITH Supports: , FAMILY AND FRIENDS Social/Family Stressors: PATIENT WITH STAGE IV PANCREATIC CA Mental Health History: PATIENT ADMITS TO HX OF DEPRESSION SINCE DIAGNOSIS OF CA Substance Abuse History: PATIENT DENIES ANY SUBSTANCE ABUSE HISTORY Interventions: SOCIAL SERVICE ASSESSMENT EMOTIONAL SUPPORT INFORMATION GIVEN ON PALLIATIVE MEDICINE/HOSPICE Assessment: PATIENT IS A 58 Y/O MALE WITH HX OF STAGE IV PANCREATIC CA WITH PERITONEAL CARCINOMATOSIS. PATIENT ADMITTED D/T NAUSEA AND VOMITING, HYPOKALEMIA. PATIENT ON TPN. PATIENT AND REPORT NO NEEDS FOR HOME GOING. STATES THEY WILL BE FLYING TO [place] NEXT WEEK FOR CONSULT THEY ARE LOOKING INTO CLINICAL TRIALS. MUCH EMOTIONAL SUPPORT AND ACTIVE LISTENING PROVIDED. PATIENT ADMITS TO HX OF DEPRESSION SINCE DX AND STATES WAS GIVEN AN ANTI-DEPRESSANT, BUT HAS BEEN UNABLE TO TAKE THE MEDICATION D/T NAUSEA AND VOMITING. PATIENT REPORTS GOOD SUPPORT FROM . DISCUSSED PALLIATIVE MEDICINE AND HOSPICE. EDUCATIONAL INFORMATION PROVIDED ON SERVICES. PLAN: HOME WITH , DENIES ANY NEEDS
[2018-10-16 12:45] LABS: Potassium 2.9 mmol/L (3.5-5.1)
[2018-10-16 14:05] LABS: Pathologist Review Reviewed
--- NOTE | 2018-10-16 16:38 | ONC.CONS.INP ---
Subjective Date of Service:: 10/16/18 Chief Complaint: pancreatic ca on treatment History of Present Illness: Mr Hoskins is a very pleasant 58-year-old gentleman with metastatic pancreas cancer. He first presented with peritoneal carcinomatosis and diagnosis was first made at [facility] by pancreas FNA in September 2017. Foundation 1 testing on a limited sample showed the cancer to be negative for K-best, positive CDKN2A, MUTYH, and TP53. He was treated was first-line [place] Abraxane at [facility] September through October 2017 but experienced progressive disease. He then traveled to [facility] in [place] where he received FOLFIRINOX November 2017 through May 2018. He then transferred care to [facility] d/t distance. He had stable disease , however starting June 2018 oxaliplatin had to be discontinued due to increasing symptomatic neuropathy and thrombocytopenia. Throughout the course of his illness he had several complications including: - Sepsis and infected central venous port that had to be removed (November 2017). - Left upper extremity DVT complicating a PICC line (January 2018) and was placed on Xarelto but anticoagulation was later discontinued to due to GI and urinary bleeding . Patient reported IVC filter was discussed but decision was not to place. - GI bleed (March 2018) while on anticoagulation - Hematuria while on anticoagulation - Left hydronephrosis status post stent May 2018, recurrent UTIs and persistent colonization with bacteria. - Persistent gastric outlet obstruction, has a decompression gastrostomy tube with high output drainage - Poor nutrition, on TPN . - Treatment delays due to cytopenias. Patient presented to [facility] yesterday for an evaluation anticipating he would receive next FOLFIRI infusion, however was found to be thrombocytopenic and neutropenic far below acceptable treatment parameters. Thus cycle 5 held. K level 2.3 and he was also experiencing intractable nausea/vomiting. Subsequently he was admitted through [facility] ED for repletion of K. Upon entering the room, patient is sitting upright in bed, smiles. States he is now able to take sips PO. Specifically denies headaches, nausea and any overt episodes of bleeding, although admits bruises easily. Past Medical History: Chronic Problems (Last Reviewed 10/15/18 @ 12:12 by Víctor Dunaway MD) GI (gastrointestinal bleed) (Chronic) Pancreas cancer (Chronic) Peritoneal carcinomatosis (Chronic) Hematuria (Chronic) While on anticoagulants DVT of upper extremity (deep vein thrombosis) (Chronic) January 2018 complicating PICC line Hydronephrosis, left (Chronic) Status post stent May 2018 Cancer-related pain (Chronic) Gastrostomy in place (Chronic) Past Medical/Surgical History: Past Medical History - Most Recent Inpatient Visit Past Medical History Start: 10/15/18 12:53 Text: Status: Complete Freq: ONCE Protocol: Document 10/15/18 13:53 ELISABETH (Rec: 10/15/18 14:03 ELISABETH [id number]) BMI Required to complete PMH What is Patient's BMI 22.3 Past Medical History Unable History Recalled Yes Query Text:Pt Unable/Family Not Present Neurologic Medical History Hx Stroke/TIA No Hx Dementia/Alzheimer's No Hx Parkinson's Disease No Hx Seizures No Hx Multiple Sclerosis No Hx Migraines No Cardiac Medical History VTE Present on Admission No Hx of Deep Vein Thrombosis/VTE/PE Yes: LEFT SUBCLAVIN FROM PICC LINE- 2017 Hx Hypertension Yes Hx Chest Pain/Angina No Hx Heart Attack No Hx Cardiac Surgery/Stents/Etc. No Hx Heart Failure No Hx Pacemaker/AICD No Hx Irregular Heartbeat and/or Afib No Hx Anticoagulant Therapy Yes: PREV ON LOVENOX MAR 2018 Query Text:(Coumadin, Aspirin, Plavix, Xarelto, etc.) Hx Pain in Legs when Walking/Leg Cramps No Respiratory Medical History Hx COPD No Hx Emphysema No Hx Smoking No Smoking Status Never smoker Hx Smoking Exposure No Hx Tobacco Use in last 12 months No Hx of Pipe Smoking No Hx of Cigar Smoking No Hx Sleep Apnea No CPAP No BIPAP No Do you snore loudly (louder than talking No or can be heard through closed doors)? Do you often feel tired/ fatigued/ No sleepy during daytime? Has anyone observed you stop breathing No during sleep? STOP Results Negative GI Medical History Hx Ulcer No Hx Hepatitis No Hx Cirrhosis No Hx GI Bleed Yes: 2017 - MARCH Hx Unplanned Weight Loss Yes Genitourinary Medical History Indwelling Catheter in Place on Arrival/ No Admission Hx Renal Disease Yes: LFT KIDNEY STENT Hx Dialysis No Musculoskeletal History Hx Arthritis No Hx Rheumatoid Arthritis No Endocrine Medical History Hx Diabetes No Hx Thyroid Disease No Hematologic Medical History Hx of Blood Transfusion Yes Hx of Transfusion in last 3 Months No Ever experience any problems with No transfusion(s)? Hx of Preganancy in last 3 Months N/A Nurse Filling Out Transfusion & JDIAL Questions: Date: 10/15/18 Time: 14:02 Psycho/Social Medical History Hx Depression Yes Hx Anxiety Yes Hx Behavior Disorder No Hx Alcohol Use No Hx Substance Use No Other Medical History Hx Blood Disorders No Hx Anemia No Hx Cancer Yes: pancreatic (current tx) Hx Drug Resistant Organism No Wound/Pressure Injury Present on Arrival No /Admission Query Text:If yes, chart assessment in Shift/Clinical Findings Central Line/PICC/VAD Present on Arrival Yes /Admission Antibiotics within last 7 days? No Methicillin Resistant Staphylococcus aureus Screening Active MRSA No Risk for Readmission Number of Risk Factors 7 At Risk for Readmission Patient is At Risk For Readmission Patient is eligible for Call Back Y Past Medical History (Last Reviewed 10/15/18 @ 12:12 by Víctor Dunaway MD) PORT PLACEMENT (Acute) Pancreas cancer (Acute) left hydronephrosis stent placement (Acute) peg tube placement (Acute) Past Surgical History (Last Reviewed 10/15/18 @ 12:12 by Víctor Dunaway MD) History of hip replacement (Acute) Hx of cholecystectomy (Acute) Paternal Family History: Family History (Last Reviewed 10/15/18 @ 12:13 by Víctor Dunaway MD) Father Heart disease Diabetes Sister Breast cancer Family History: No pertinent history Maternal Family History: Family History (Last Reviewed 10/15/18 @ 12:13 by Víctor Dunaway MD) Father Heart disease Diabetes Sister Breast cancer Family History: No pertinent history - Social History Smoking Status: Never smoker Allergies/Adverse Reactions: Allergy/AdvReac Type Severity Reaction Status Date / Time latex Allergy Rash Verified 10/15/18 09:30 Review of Systems Constitutional:: Reports: Weakness, Fatigue. Denies: Fever, Sweats, Weight loss, Appetite change, Chills Cardiovascular:: Denies: Chest pain, Palpitations, Dyspnea on exertion, Orthopnea, PND, Shortness of breath Respiratory: Reports: Cough - occasionally. Denies: Hemoptysis, Shortness of Breath, Wheezing Gastrointestinal:: Reports: Diarrhea - BMS loose secondary to TPN. Denies: Abdominal pain, Nausea - resolved, Vomiting, Constipation, Hematochezia Genitourinary: Denies: Dysuria, Hematuria, 15, Flank pain Musculoskeletal:: Denies: Back pain, Myalgia, Arthralgia Skin: Denies: Rash, Skin Changes, Wounds Neurological:: Denies: Headache, Dizziness, Visual changes, Tinnitus, Hearing loss Psychiatric: Denies: Anxiety, Depression, Homicidal Ideations, Suicidal Ideations Vital Signs Height 6 ft 4 in Weight: 183 lb 8.557 oz Weight in Pounds 183.5 lbs Pulse Ox 96 Temperature 97.9 F Pulse Rate 57 Respiratory Rate 18 Blood Pressure 112/52 Blood Pressure Position Semi-Fowlers - Physical Exam General: Alert, Oriented x3, No apparent distress HEENT: Atraumatic, PERRLA, EOMI, Normocephalic Oropharynx:: Negative for: Dry mucosa, Ulcerated lesions Neck:: Supple, Trachea midline. Negative for: JVD, bilateral Cardiac:: Regular rate, Normal S1, Normal S2. Negative for: Regular rhythm, Murmur Lungs: Clear to auscultation, Excusion symmetrical. Negative for: Rhonchi, Wheezes Abdomen:: Bowel sounds x 4, Soft, Non-tender, Non-distended, - - gastrostomy tube in place. Negative for: Hepatosplenomegaly Extremities:: - - wearing compression stockings. Negative for: Cyanosis, Edema Neurological: Neuro grossly intact Skin:: Negative for: Lesions, Rash, Petechiae, Ecchymosis Psychiatric:: Appropriate affect, Euthymic Lymphatics:: Negative for: Cervical lymphadenopathy, Supraclavicular lymphadenopathy, Axillary lymphadenopathy Laboratory Data: Laboratory Tests 10/16/18 10/16/18 10/16/18 Range/Units 12:20 11:49 10:05 WBC (4.4-11.0) K/mm3 RBC (4.6-6.2) M/mm3 Hgb (13.0-16.5) g/dl Hct (40-54) % MCV (80-94) fL MCH (27.0-32.0) pg MCHC (32-36) g/gl RDW (11.6-14.6) % RDW Differential (35.1-43.9) fl Plt Count (150-450) K/mm3 MPV Immature Gran % (Auto) (0.0-0.9) % Neut % (Auto) (47-70) % Lymph % (Auto) (19-41) % [place] % (Auto) (0-10) % Eos % (Auto) (0-5) % Baso % (Auto) (0-1) % Absolute Neuts (auto) (2.0-7.7) X10^3/uL Absolute Lymphs (auto) (0.83-4.51) X10^3/ul Total Counted Differential Comment Diff Path Review Platelet Estimate (ADEQ) Hypochromasia Anisocytosis Macrocytosis Ovalocytes Sodium (136-145) mmol/L Potassium 2.9 L (3.5-5.1) mmol/L Chloride (98-107) mmol/L Carbon Dioxide (21.0-32.0) mmol/L Anion Gap (5-15) BUN (7-18) mg/dL Creatinine (0.70-1.30) mg/dL Estim Creat Clear Calc ml/min Est GFR (MDRD) Af Amer (>60) mL/min Est GFR (MDRD) Non-Af (>60) mL/min BUN/Creatinine Ratio (10-20) RATIO Glucose (74-106) mg/dL Calcium (8.5-10.1) mg/dL POC Glucose 171 H (70-110) mg/dL Blood Type A POSITIVE 10/16/18 10/16/18 10/16/18 Range/Units 05:35 05:35 05:15 WBC 2.1 L (4.4-11.0) K/mm3 RBC 2.67 L (4.6-6.2) M/mm3 Hgb 8.4 L (13.0-16.5) g/dl Hct 26.4 L (40-54) % MCV 98.9 H (80-94) fL MCH 31.5 (27.0-32.0) pg MCHC 31.8 L (32-36) g/gl RDW 16.9 H (11.6-14.6) % RDW Differential 57.1 H (35.1-43.9) fl Plt Count 23 L* (150-450) K/mm3 MPV TNP Immature Gran % (Auto) 0.000 (0.0-0.9) % Neut % (Auto) 31.1 L (47-70) % Lymph % (Auto) 51.2 H (19-41) % [place] % (Auto) 12.0 H (0-10) % Eos % (Auto) 5.7 H (0-5) % Baso % (Auto) 0.0 (0-1) % Absolute Neuts (auto) 0.7 L (2.0-7.7) X10^3/uL Absolute Lymphs (auto) 1.07 (0.83-4.51) X10^3/ul Total Counted Not Reportable Differential Comment SEE COMMENT Diff Path Review Reviewed Platelet Estimate MKD DEC (ADEQ) Hypochromasia 1+ Anisocytosis 1+ Macrocytosis RARE Ovalocytes RARE Sodium 140 (136-145) mmol/L Potassium 2.6 L* (3.5-5.1) mmol/L Chloride 93 L (98-107) mmol/L Carbon Dioxide 41.0 H (21.0-32.0) mmol/L Anion Gap 6 (5-15) BUN 24 H (7-18) mg/dL Creatinine 0.56 L (0.70-1.30) mg/dL Estim Creat Clear Calc 167.24 ml/min Est GFR (MDRD) Af Amer 190 (>60) mL/min Est GFR (MDRD) Non-Af 157 (>60) mL/min BUN/Creatinine Ratio 42.6 H (10-20) RATIO Glucose 176 H (74-106) mg/dL Calcium 7.6 L (8.5-10.1) mg/dL POC Glucose 207 H (70-110) mg/dL Blood Type 10/15/18 10/15/18 10/15/18 Range/Units 22:40 21:49 16:17 WBC (4.4-11.0) K/mm3 RBC (4.6-6.2) M/mm3 Hgb (13.0-16.5) g/dl Hct (40-54) % MCV (80-94) fL MCH (27.0-32.0) pg MCHC (32-36) g/gl RDW (11.6-14.6) % RDW Differential (35.1-43.9) fl Plt Count (150-450) K/mm3 MPV Immature Gran % (Auto) (0.0-0.9) % Neut % (Auto) (47-70) % Lymph % (Auto) (19-41) % [place] % (Auto) (0-10) % Eos % (Auto) (0-5) % Baso % (Auto) (0-1) % Absolute Neuts (auto) (2.0-7.7) X10^3/uL Absolute Lymphs (auto) (0.83-4.51) X10^3/ul Total Counted Differential Comment Diff Path Review Platelet Estimate (ADEQ) Hypochromasia Anisocytosis Macrocytosis Ovalocytes Sodium 139 (136-145) mmol/L Potassium 2.5 L* 2.3 L* (3.5-5.1) mmol/L Chloride 91 L (98-107) mmol/L Carbon Dioxide 43.0 H (21.0-32.0) mmol/L Anion Gap 5 (5-15) BUN 27 H (7-18) mg/dL Creatinine 0.64 L (0.70-1.30) mg/dL Estim Creat Clear Calc 146.34 ml/min Est GFR (MDRD) Af Amer 166 (>60) mL/min Est GFR (MDRD) Non-Af 137 (>60) mL/min BUN/Creatinine Ratio 42.5 H (10-20) RATIO Glucose 122 H (74-106) mg/dL Calcium 7.7 L (8.5-10.1) mg/dL POC Glucose 133 H (70-110) mg/dL Blood Type Assessment and Plan Mr Hoskins is a 58-year-old male with pancreatic cancer with peritoneal carcinomatosis resulting in gastric outlet obstruction as well as left hydronephrosis requiring stent placement presently receiving systemic chemotherapy with FOLFIRI, who presented to [facility] ED 10/15/18 with severe hypokalemia and nausea and vomiting. 1. Stage IV pancreatic cancer with peritoneal carcinomatosis with resultant gastric outlet obstruction as well as left hydronephrosis patient currently on standard treatment with FOLFIRI till progression or unacceptable toxicity. Treatment is palliative +/- Modest survival benefit. Despite experiencing several treatment delays d/t cytopenias, disease is stable. His oncology care is a fragmented in that chemotherapy is administered at [facility], however he is still receiving some care from [facility] ([facility]) and a experimental facility in [place] (plans to have gastric stent placement there next week). 2. Pancytopenia- As evidenced by Hgb 8.4, platelets 23,000 and WBC 2.1. Chemotherapy induced. Patient is receiving platelet transfusion at the present time. Patient will require PRBCs for Hgb <7 or <8 and symptomatic, platelet transfusion for platelets <10,000 or if develops antonino bleeding. Neutropenic precautions advised. 3. Intractable nausea vomiting- Vastly improved with antiemetics. 4. Hypokalemia- d/t GI losses. Improving with repletion, K level 2.9 today. 5. DVT prophylaxis- chemoprophylaxis contraindicated. Encouraged him to ambulate often and SCDs ordered. Patient to follow up in clinic Monday10/22/[address] May was in agreement with the aforementioned plan. Sabrina Way, MSN, NETWORK MANAGEMENT SPECIALIST-[employer]LE BL[employer]ER, AOCNP Medications: Prescriptions This Visit Medication Instructions Recorded Ativan Intensol 1 mg SUBLINGUAL Q6H PRN PRN 10/15/18 Methenamine Hippurate [Hiprex] 1 gm PO BID 10/15/18 Medications Added to Medication List This Visit Category Date Time Status AA 5%-Lytes/D20w [Clinimix E 5%-20% Solution 2000 ML] 2 Med 10/16/18 16:00 Active ,000 ml Multivitamins [Mvi] 10 ml Trace Metals [M.t.e. -5 Conc Mdv ([facility])] 1 ml Folic Acid [Folvite] 1 mg IV 84 mls/hr Fat Emulsions 20% [Intralipid 20%] 250 ml Med 10/16/18 16:00 Active IV 21 mls/hr Pantoprazole Sodium [Protonix] 80 mg Med 10/16/18 10:00 Active 0.9% Normal Saline 80 ml CONT INF Q10H Potassium Chloride 10mEq/100mL 10 meq Med 10/16/18 16:00 Active Premixed Bag 1 bag IV Q1H Primary Care Provider: Kleber Martin DO Referring Provider: - Problem List (1) Hypokalemia, gastrointestinal losses Status: Acute (2) Pancreas cancer Status: Chronic Qualifiers: Pancreatic malignancy location: unspecified Qualified Code(s): C25.9 - Malignant neoplasm of pancreas, unspecified (3) CINV (chemotherapy-induced nausea and vomiting) Status: Resolved
[2018-10-16] MEDS: Fat Emulsions 20% 250 ML IV (16:43)
--- NOTE | 2018-10-16 16:47 | CON.PCM_ITS ---
Subjective Date of Service:: 10/16/18 Chief Complaint: pancreatic ca on treatment History of Present Illness: Mr Hoskins is a very pleasant 58-year-old gentleman with metastatic pancreas cancer. He first presented with peritoneal carcinomatosis and diagnosis was first made at [facility] by pancreas FNA in September 2017. Foundation 1 testing on a limited sample showed the cancer to be negative for K-best, positive CDKN2A, MUTYH, and TP53. He was treated was first-line Seffner Abraxane at [facility] September through October 2017 but experienced progressive disease. He then traveled to [facility] in [place] where he received FOLFIRINOX November 2017 through May 2018. He then transferred care to [facility] d/t distance. He had stable disease , however starting June 2018 oxaliplatin had to be discontinued due to increasing symptomatic neuropathy and thrombocytopenia. Throughout the course of his illness he had several complications including: - Sepsis and infected central venous port that had to be removed (November 2017). - Left upper extremity DVT complicating a PICC line (January 2018) and was placed on Xarelto but anticoagulation was later discontinued to due to GI and urinary bleeding . Patient reported IVC filter was discussed but decision was not to place. - GI bleed (March 2018) while on anticoagulation - Hematuria while on anticoagulation - Left hydronephrosis status post stent May 2018, recurrent UTIs and persistent colonization with bacteria. - Persistent gastric outlet obstruction, has a decompression gastrostomy tube with high output drainage - Poor nutrition, on TPN . - Treatment delays due to cytopenias. Patient presented to [facility] yesterday for an evaluation anticipating he would receive next FOLFIRI infusion, however was found to be thrombocytopenic and neutropenic far below acceptable treatment parameters. Thus cycle 5 held. K level 2.3 and he was also experiencing intractable nausea/vomiting. Subsequently he was admitted through [facility] ED for repletion of K. Upon entering the room, patient is sitting upright in bed, smiles. States he is now able to take sips PO. Specifically denies headaches, nausea and any overt episodes of bleeding, although admits bruises easily. Past Medical History: Chronic Problems (Last Reviewed 10/15/18 @ 12:12 by Víctor Dunaway MD) GI (gastrointestinal bleed) (Chronic) Pancreas cancer (Chronic) Peritoneal carcinomatosis (Chronic) Hematuria (Chronic) While on anticoagulants DVT of upper extremity (deep vein thrombosis) (Chronic) January 2018 complicating PICC line Hydronephrosis, left (Chronic) Status post stent May 2018 Cancer-related pain (Chronic) Gastrostomy in place (Chronic) Past Medical/Surgical History: Past Medical History - Most Recent Inpatient Visit Past Medical History Start: 10/15/18 12:53 Text: Status: Complete Freq: ONCE Protocol: Document 10/15/18 13:53 ELISABETH (Rec: 10/15/18 14:03 ELISABETH [id number]) BMI Required to complete PMH What is Patient's BMI 22.3 Past Medical History Unable History Recalled Yes Query Text:Pt Unable/Family Not Present Neurologic Medical History Hx Stroke/TIA No Hx Dementia/Alzheimer's No Hx Parkinson's Disease No Hx Seizures No Hx Multiple Sclerosis No Hx Migraines No Cardiac Medical History VTE Present on Admission No Hx of Deep Vein Thrombosis/VTE/PE Yes: LEFT SUBCLAVIN FROM PICC LINE- 2017 Hx Hypertension Yes Hx Chest Pain/Angina No Hx Heart Attack No Hx Cardiac Surgery/Stents/Etc. No Hx Heart Failure No Hx Pacemaker/AICD No Hx Irregular Heartbeat and/or Afib No Hx Anticoagulant Therapy Yes: PREV ON LOVENOX MAR 2018 Query Text:(Coumadin, Aspirin, Plavix, Xarelto, etc.) Hx Pain in Legs when Walking/Leg Cramps No Respiratory Medical History Hx COPD No Hx Emphysema No Hx Smoking No Smoking Status Never smoker Hx Smoking Exposure No Hx Tobacco Use in last 12 months No Hx of Pipe Smoking No Hx of Cigar Smoking No Hx Sleep Apnea No CPAP No BIPAP No Do you snore loudly (louder than talking No or can be heard through closed doors)? Do you often feel tired/ fatigued/ No sleepy during daytime? Has anyone observed you stop breathing No during sleep? STOP Results Negative GI Medical History Hx Ulcer No Hx Hepatitis No Hx Cirrhosis No Hx GI Bleed Yes: 2017 - MARCH Hx Unplanned Weight Loss Yes Genitourinary Medical History Indwelling Catheter in Place on Arrival/ No Admission Hx Renal Disease Yes: LFT KIDNEY STENT Hx Dialysis No Musculoskeletal History Hx Arthritis No Hx Rheumatoid Arthritis No Endocrine Medical History Hx Diabetes No Hx Thyroid Disease No Hematologic Medical History Hx of Blood Transfusion Yes Hx of Transfusion in last 3 Months No Ever experience any problems with No transfusion(s)? Hx of Preganancy in last 3 Months N/A Nurse Filling Out Transfusion & JDIAL Questions: Date: 10/15/18 Time: 14:02 Psycho/Social Medical History Hx Depression Yes Hx Anxiety Yes Hx Behavior Disorder No Hx Alcohol Use No Hx Substance Use No Other Medical History Hx Blood Disorders No Hx Anemia No Hx Cancer Yes: pancreatic (current tx) Hx Drug Resistant Organism No Wound/Pressure Injury Present on Arrival No /Admission Query Text:If yes, chart assessment in Shift/Clinical Findings Central Line/PICC/VAD Present on Arrival Yes /Admission Antibiotics within last 7 days? No Methicillin Resistant Staphylococcus aureus Screening Active MRSA No Risk for Readmission Number of Risk Factors 7 At Risk for Readmission Patient is At Risk For Readmission Patient is eligible for Call Back Y Past Medical History (Last Reviewed 10/15/18 @ 12:12 by Víctor Dunaway MD) PORT PLACEMENT (Acute) Pancreas cancer (Acute) left hydronephrosis stent placement (Acute) peg tube placement (Acute) Past Surgical History (Last Reviewed 10/15/18 @ 12:12 by Víctor Dunaway MD) History of hip replacement (Acute) Hx of cholecystectomy (Acute) Paternal Family History: Family History (Last Reviewed 10/15/18 @ 12:13 by Víctor Dunaway MD) Father Heart disease Diabetes Sister Breast cancer Family History: No pertinent history Maternal Family History: Family History (Last Reviewed 10/15/18 @ 12:13 by Víctor Dunaway MD) Father Heart disease Diabetes Sister Breast cancer Family History: No pertinent history - Social History Smoking Status: Never smoker Allergies/Adverse Reactions: Allergy/AdvReac Type Severity Reaction Status Date / Time latex Allergy Rash Verified 10/15/18 09:30 Review of Systems Constitutional:: Reports: Weakness, Fatigue. Denies: Fever, Sweats, Weight loss, Appetite change, Chills Cardiovascular:: Denies: Chest pain, Palpitations, Dyspnea on exertion, Orthopnea, PND, Shortness of breath Respiratory: Reports: Cough - occasionally. Denies: Hemoptysis, Shortness of Breath, Wheezing Gastrointestinal:: Reports: Diarrhea - BMS loose secondary to TPN. Denies: Abdominal pain, Nausea - resolved, Vomiting, Constipation, Hematochezia Genitourinary: Denies: Dysuria, Hematuria, 15, Flank pain Musculoskeletal:: Denies: Back pain, Myalgia, Arthralgia Skin: Denies: Rash, Skin Changes, Wounds Neurological:: Denies: Headache, Dizziness, Visual changes, Tinnitus, Hearing loss Psychiatric: Denies: Anxiety, Depression, Homicidal Ideations, Suicidal Ideations Vital Signs Height 6 ft 4 in Weight: 183 lb 8.557 oz Weight in Pounds 183.5 lbs Pulse Ox 96 Temperature 97.9 F Pulse Rate 57 Respiratory Rate 18 Blood Pressure 112/52 Blood Pressure Position Semi-Fowlers - Physical Exam General: Alert, Oriented x3, No apparent distress HEENT: Atraumatic, PERRLA, EOMI, Normocephalic Oropharynx:: Negative for: Dry mucosa, Ulcerated lesions Neck:: Supple, Trachea midline. Negative for: JVD, bilateral Cardiac:: Regular rate, Normal S1, Normal S2. Negative for: Regular rhythm, Murmur Lungs: Clear to auscultation, Excusion symmetrical. Negative for: Rhonchi, Wheezes Abdomen:: Bowel sounds x 4, Soft, Non-tender, Non-distended, - - gastrostomy tube in place. Negative for: Hepatosplenomegaly Extremities:: - - wearing compression stockings. Negative for: Cyanosis, Edema Neurological: Neuro grossly intact Skin:: Negative for: Lesions, Rash, Petechiae, Ecchymosis Psychiatric:: Appropriate affect, Euthymic Lymphatics:: Negative for: Cervical lymphadenopathy, Supraclavicular lymphadenopathy, Axillary lymphadenopathy Laboratory Data: Laboratory Tests 10/16/18 10/16/18 10/16/18 Range/Units 12:20 11:49 10:05 WBC (4.4-11.0) K/mm3 RBC (4.6-6.2) M/mm3 Hgb (13.0-16.5) g/dl Hct (40-54) % MCV (80-94) fL MCH (27.0-32.0) pg MCHC (32-36) g/gl RDW (11.6-14.6) % RDW Differential (35.1-43.9) fl Plt Count (150-450) K/mm3 MPV Immature Gran % (Auto) (0.0-0.9) % Neut % (Auto) (47-70) % Lymph % (Auto) (19-41) % Desha % (Auto) (0-10) % Eos % (Auto) (0-5) % Baso % (Auto) (0-1) % Absolute Neuts (auto) (2.0-7.7) X10^3/uL Absolute Lymphs (auto) (0.83-4.51) X10^3/ul Total Counted Differential Comment Diff Path Review Platelet Estimate (ADEQ) Hypochromasia Anisocytosis Macrocytosis Ovalocytes Sodium (136-145) mmol/L Potassium 2.9 L (3.5-5.1) mmol/L Chloride (98-107) mmol/L Carbon Dioxide (21.0-32.0) mmol/L Anion Gap (5-15) BUN (7-18) mg/dL Creatinine (0.70-1.30) mg/dL Estim Creat Clear Calc ml/min Est GFR (MDRD) Af Amer (>60) mL/min Est GFR (MDRD) Non-Af (>60) mL/min BUN/Creatinine Ratio (10-20) RATIO Glucose (74-106) mg/dL Calcium (8.5-10.1) mg/dL POC Glucose 171 H (70-110) mg/dL Blood Type A POSITIVE 10/16/18 10/16/18 10/16/18 Range/Units 05:35 05:35 05:15 WBC 2.1 L (4.4-11.0) K/mm3 RBC 2.67 L (4.6-6.2) M/mm3 Hgb 8.4 L (13.0-16.5) g/dl Hct 26.4 L (40-54) % MCV 98.9 H (80-94) fL MCH 31.5 (27.0-32.0) pg MCHC 31.8 L (32-36) g/gl RDW 16.9 H (11.6-14.6) % RDW Differential 57.1 H (35.1-43.9) fl Plt Count 23 L* (150-450) K/mm3 MPV TNP Immature Gran % (Auto) 0.000 (0.0-0.9) % Neut % (Auto) 31.1 L (47-70) % Lymph % (Auto) 51.2 H (19-41) % Desha % (Auto) 12.0 H (0-10) % Eos % (Auto) 5.7 H (0-5) % Baso % (Auto) 0.0 (0-1) % Absolute Neuts (auto) 0.7 L (2.0-7.7) X10^3/uL Absolute Lymphs (auto) 1.07 (0.83-4.51) X10^3/ul Total Counted Not Reportable Differential Comment SEE COMMENT Diff Path Review Reviewed Platelet Estimate MKD DEC (ADEQ) Hypochromasia 1+ Anisocytosis 1+ Macrocytosis RARE Ovalocytes RARE Sodium 140 (136-145) mmol/L Potassium 2.6 L* (3.5-5.1) mmol/L Chloride 93 L (98-107) mmol/L Carbon Dioxide 41.0 H (21.0-32.0) mmol/L Anion Gap 6 (5-15) BUN 24 H (7-18) mg/dL Creatinine 0.56 L (0.70-1.30) mg/dL Estim Creat Clear Calc 167.24 ml/min Est GFR (MDRD) Af Amer 190 (>60) mL/min Est GFR (MDRD) Non-Af 157 (>60) mL/min BUN/Creatinine Ratio 42.6 H (10-20) RATIO Glucose 176 H (74-106) mg/dL Calcium 7.6 L (8.5-10.1) mg/dL POC Glucose 207 H (70-110) mg/dL Blood Type 10/15/18 10/15/18 10/15/18 Range/Units 22:40 21:49 16:17 WBC (4.4-11.0) K/mm3 RBC (4.6-6.2) M/mm3 Hgb (13.0-16.5) g/dl Hct (40-54) % MCV (80-94) fL MCH (27.0-32.0) pg MCHC (32-36) g/gl RDW (11.6-14.6) % RDW Differential (35.1-43.9) fl Plt Count (150-450) K/mm3 MPV Immature Gran % (Auto) (0.0-0.9) % Neut % (Auto) (47-70) % Lymph % (Auto) (19-41) % Desha % (Auto) (0-10) % Eos % (Auto) (0-5) % Baso % (Auto) (0-1) % Absolute Neuts (auto) (2.0-7.7) X10^3/uL Absolute Lymphs (auto) (0.83-4.51) X10^3/ul Total Counted Differential Comment Diff Path Review Platelet Estimate (ADEQ) Hypochromasia Anisocytosis Macrocytosis Ovalocytes Sodium 139 (136-145) mmol/L Potassium 2.5 L* 2.3 L* (3.5-5.1) mmol/L Chloride 91 L (98-107) mmol/L Carbon Dioxide 43.0 H (21.0-32.0) mmol/L Anion Gap 5 (5-15) BUN 27 H (7-18) mg/dL Creatinine 0.64 L (0.70-1.30) mg/dL Estim Creat Clear Calc 146.34 ml/min Est GFR (MDRD) Af Amer 166 (>60) mL/min Est GFR (MDRD) Non-Af 137 (>60) mL/min BUN/Creatinine Ratio 42.5 H (10-20) RATIO Glucose 122 H (74-106) mg/dL Calcium 7.7 L (8.5-10.1) mg/dL POC Glucose 133 H (70-110) mg/dL Blood Type Assessment and Plan Mr Hoskins is a 58-year-old male with pancreatic cancer with peritoneal carcinomatosis resulting in gastric outlet obstruction as well as left hydronephrosis requiring stent placement presently receiving systemic chemotherapy with FOLFIRI, who presented to [facility] ED 10/15/18 with severe hypokalemia and nausea and vomiting. 1. Stage IV pancreatic cancer with peritoneal carcinomatosis with resultant gastric outlet obstruction as well as left hydronephrosis patient currently on standard treatment with FOLFIRI till progression or unacceptable toxicity. Treatment is palliative +/- Modest survival benefit. Despite experiencing several treatment delays d/t cytopenias, disease is stable. His oncology care is a fragmented in that chemotherapy is administered at [facility], however he is still receiving some care from [facility] ([facility]) and a experimental facility in [place] (plans to have gastric stent placement there next week). 2. Pancytopenia- As evidenced by Hgb 8.4, platelets 23,000 and WBC 2.1. Chemotherapy induced. Patient is receiving platelet transfusion at the present time. Patient will require PRBCs for Hgb <7 or <8 and symptomatic, platelet transfusion for platelets <10,000 or if develops antonino bleeding. Neutropenic precautions advised. 3. Intractable nausea vomiting- Vastly improved with antiemetics. 4. Hypokalemia- d/t GI losses. Improving with repletion, K level 2.9 today. 5. DVT prophylaxis- chemoprophylaxis contraindicated. Encouraged him to ambulate often and SCDs ordered. Patient to follow up in clinic Monday10/22/[address] May was in agreement with the aforementioned plan. Sabrina Way, MSN, IMPORT COORDINATOR-TRANSPLANT RN, AOCNP Medications: Prescriptions This Visit Medication Instructions Recorded Ativan Intensol 1 mg SUBLINGUAL Q6H PRN PRN 10/15/18 Methenamine Hippurate [Hiprex] 1 gm PO BID 10/15/18 Medications Added to Medication List This Visit Category Date Time Status AA 5%-Lytes/D20w [Clinimix E 5%-20% Solution 2000 ML] 2 Med 10/16/18 16:00 Active ,000 ml Multivitamins [Mvi] 10 ml Trace Metals [M.t.e. -5 Conc Mdv ([facility])] 1 ml Folic Acid [Folvite] 1 mg IV 84 mls/hr Fat Emulsions 20% [Intralipid 20%] 250 ml Med 10/16/18 16:00 Active IV 21 mls/hr Pantoprazole Sodium [Protonix] 80 mg Med 10/16/18 10:00 Active 0.9% Normal Saline 80 ml CONT INF Q10H Potassium Chloride 10mEq/100mL 10 meq Med 10/16/18 16:00 Active Premixed Bag 1 bag IV Q1H Primary Care Provider: Kleber Martin DO Referring Provider: - Problem List (1) Hypokalemia, gastrointestinal losses Status: Acute (2) Pancreas cancer Status: Chronic Qualifiers: Pancreatic malignancy location: unspecified Qualified Code(s): C25.9 - Malignant neoplasm of pancreas, unspecified (3) CINV (chemotherapy-induced nausea and vomiting) Status: Resolved
[2018-10-16 17:45] LABS: Bedside Glucose 98 mg/dL (70-110)
[2018-10-17] VITALS (9 sets, daily range): BP systolic 109–127; BP diastolic 69–85; PULSE 54–88; RESP 16–18; TEMP 36.4–37.1; O2SAT 97–100
[2018-10-17] MEDS: HYDROmorphone 1 MG/ML Syringe IV ×5 (03:26→22:38)
[2018-10-17] MEDS: Ondansetron 4 MG/2 ML Vial IV ×2 (03:38→17:43)
[2018-10-17 06:33] LABS: Potassium 3.1 mmol/L (3.5-5.1)
[2018-10-17 06:46] LABS: Bedside Glucose 166 mg/dL (70-110)
--- NOTE | 2018-10-17 08:02 | PCM.PN.HOSP ---
Patient Problems: Active and Suspected Problems (Last Reviewed 10/15/18 @ 12:12 by Víctor Dunaway MD) Hypokalemia, gastrointestinal losses (Acute) Intractable nausea and vomiting (Acute) Subjective: Patient seen the active GI bleed from his gastric tube appears to have subsided. Potassium up to 3.1. His overall clinical condition continues to improve. Objective: GENERAL: Patient appears ill looking HEENT: Atraumatic; EYES; Anicteric, Normal Conjunctiva NECK; supple, normal thyroid, RESPIRATORY: Diminished to auscultation CARDIOVASCULAR: Regular S1 S2, GI: soft, non-tender, normoactive bowel sounds, : No Renal angle tenderness; EXTREMITIES: No edema, no clubbing, MUSCULOSKELETAL: No Joint Tenderness; NEURO: Awake; no lateralizing signs. SKIN: No Rash PSYCH;flat affect Vitals/I&O's: Vital Signs Temp Pulse Resp BP Pulse Ox 98.7 F 54 L 16 109/70 97 10/17/18 02:43 10/17/18 04:04 10/17/18 02:43 10/17/18 02:43 10/17/18 07:13 Oxygen Delivery Method Room Air Weight: 83.25 kg Body Mass Index (BMI) 22.3 Intake and Output for Last 24 Hours 10/15/18 10/16/18 10/17/18 23:59 23:59 23:59 Intake Total 5609 / 5609 1958 / 1958 Output Total 1000 / 1000 950 / 950 1300 / 1300 Balance -1000 / -1000 4659 / 4659 659 / 659 Laboratory Results 10/16/18 05:35: Diff Path Review Reviewed 10/16/18 10:05: Blood Type A POSITIVE 10/16/18 11:49: POC Glucose 171 H 10/16/18 12:20: Potassium 2.9 L 10/16/18 17:41: POC Glucose 98 10/17/18 05:54: Potassium 3.1 L 10/17/18 06:42: POC Glucose 166 H Current Medications Al Hydroxide/Mg Hydroxide (Mylanta Ii) 30 ml PO Q6H PRN PRN PRN Reason: Gastric Burning Albuterol Sulfate (Ventolin Aerosols) 2.5 mg INHALATION Q2H PRN PRN PRN Reason: Shortness of Breath/Wheezing Dextrose (D50w Syringe) 0 gm IV X1 PRN; Protocol PRN Reason: Hypoglycemia Fentanyl (Duragesic Patch) 25 mcg TRANSDERM. Q3D [facility] Last Admin: 10/15/18 15:05 Dose: 25 mcg Glucagon () 1 mg IM .X1 PRN PRN Reason: Hypoglycemia Guaifenesin (Robitussin) 20 ml PO Q4H PRN PRN PRN Reason: COUGH Heparin Sodium (Beef Lung) () 50 units IV UD PRN PRN Reason: HEPARIN FLUSH Hydromorphone HCl (Dilaudid Inj) 1 mg IV Q4H PRN PRN PRN Reason: Severe pain (7-10/10) Last Admin: 10/17/18 03:26 Dose: 1 mg Potassium Chloride/Dextrose/Sod Cl () 1,000 mls @ 100 mls/hr IV .Q10H [facility] Last Admin: 10/16/18 21:24 Dose: 100 mls/hr Pantoprazole Sodium 80 mg/ (Sodium Chloride) 100 mls @ 10 mls/hr CONT INF Q10H [facility] Last Admin: 10/16/18 21:08 Dose: 10 mls/hr Multivitamins 10 ml/ Chromium/Copper/Manganese/Seleni/Zn 1 ml/ Folic Acid 1 mg/ Amino Acids/Electrolytes 2,011.2 mls @ 84 mls/hr IV .[id number] [facility] Stop: 10/17/18 15:48 Last Admin: 10/16/18 16:43 Dose: 84 mls/hr Potassium Chloride 10 meq/ N/A 100 mls @ 100 mls/hr IV Q1H [facility] Stop: 10/17/18 12:14 Lorazepam (Ativan Intensol) 1 mg SL Q6H PRN PRN PRN Reason: ANXIETY Magnesium Hydroxide (Milk Of Magnesia) 30 ml PO DAILY PRN PRN PRN Reason: Constipation Melatonin (Melatonin) 3 mg PO QHS PRN PRN PRN Reason: INSOMNIA Ondansetron HCl (Zofran) 4 mg IV Q6H PRN PRN PRN Reason: NAUSEA/VOMITING Last Admin: 10/17/18 03:38 Dose: 4 mg Oxycodone HCl (Oxyir) 10 mg PO Q4H PRN PRN PRN Reason: Moderate Pain (4-6/10) Last Admin: 10/16/18 08:03 Dose: 10 mg Promethazine HCl (Phenergan) 25 mg IM Q6H PRN PRN PRN Reason: Breakthrough nausea/vomiting Sodium Chloride () 10 ml IV UD PRN PRN Reason: VAD FLUSH Last Admin: 10/16/18 17:36 Dose: 10 ml Throat Lozenges (Cepacol Sore Throat Lozenge) 1 lozenge MUCOUS MEM Q2H PRN PRN PRN Reason: Sore throat or cough Medical Necessity - Tobacco Use Smoking Status: Never smoker Assessment/Plan All Active Problems (Last Reviewed 10/15/18 @ 12:12 by Víctor Dunaway MD) Hypokalemia, gastrointestinal losses (Acute) Intractable nausea and vomiting (Acute) Ureteral obstruction, left (Resolved) CINV (chemotherapy-induced nausea and vomiting) (Resolved) Encounter for adjustment or management of vascular access device (Acute) Pyelonephritis (Resolved) Pyelonephritis, acute (Resolved) Patient is a 58-year-old male with pancreatic cancer with peritoneal carcinomatosis resulting in gastric outlet obstruction as well as left hydronephrosis requiring stent placement who presented nausea and vomiting 1. Intractable nausea vomiting in a patient with stage IV pancreatic cancer with peritoneal carcinomatosis. Patient has been admitted to regular nursing floor for symptomatic management patient complains of abdominal discomfort as of the morning of 10/17/2018 2. Hypokalemia secondary to patient intractable nausea vomiting. Admitted to monitored bed for continuous telemetry repletion initiated in the ED, serial potassium ordered for subsequent monitoring patient potassium remains significantly low as of 10/16/2018. ~ 10/17/2018 up to 3.1 we will continue with potassium repletion 3. Stage IV pancreatic cancer with peritoneal carcinomatosis with resultant gastric outlet obstruction as well as left hydronephrosis patient currently receiving chemo as outpatient patient's oncologist is Dr. Dave patient was scheduled to have received chemo on the day of his admission and had to be abandoned in view of his significant electrolyte abnormalities 4. Gastric outlet obstruction with intractable nausea vomiting patient has apparently not been able to keep any diet and is currently receiving TPN 5. Severe protein calorie malnutrition as a result of patient gastric outlet obstruction patient is on TPN reordered 6. 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 Patient started on Protonix drip, as well as monitoring H&H with plans to transfuse if hemoglobin falls below 7 7. Thrombocytopenia chemo induced monitoring significant drop in patient platelet count following admission and order was given for patient to be transfused with 1 unit a pheresis platelets 8. 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 Previous left upper extremity DVT complicating a PICC line patient was initially placed on Xarelto had to be discontinued in view of GI bleed as well as hematuria 11. DVT prophylaxis avoided chemoprophylaxis in view of patient significant low platelet count Code Visit Inpatient E&M: 46537 Subs Hosp L2
[2018-10-17 08:35] LABS: Magnesium 1.6 mg/dL (1.6-2.6)
[2018-10-17 08:43] LABS: Absolute Lymphocyte Count 0.91 X10^3/ul (0.83-4.51); Absolute Neutrophil Count 0.7 X10^3/uL (2.0-7.7); Basophil# 0.01 X10^3/uL; Basophil% 0.5 % (0-1); Eosinophil# 0.12 X10^3/uL; Eosinophils% 5.9 % (0-5); Hematocrit 26.7 % (40-54); Hemoglobin 8.5 g/dl (13.0-16.5); Lymphocyte # 0.91 X10^3/ul (4.0); Lymphocyte % 44.4 % (19-41); Mean Corp Hgb Conc 31.8 g/gl (32-36); Mean Corpuscular Hgb 31.6 pg (27.0-32.0); Mean Corpuscular Volume 99.3 fL (80-94); Monocyte# 0.27 X10^3/uL; Monocyte% 13.2 % (0-10); Neutrophil # 0.73 X10^3/uL (2.7-7.7); Neutrophil % 35.5 % (47-70); RBC Distribution Width CV 16.7 % (11.6-14.6); RBC Distribution Width SD 57.4 fl (35.1-43.9); Red Blood Count 2.69 M/mm3 (4.6-6.2); White Blood Count 2.1 K/mm3 (4.4-11.0)
[2018-10-17 08:56] LABS: POSITIVE COUNT YES; POSITIVE DIFFERENTIAL YES; POSITIVE MORPHOLOGY YES; Platelet Count 10 K/mm3 (150-450)
[2018-10-17 08:57] LABS: Differential Indicated SCAN CRITERIA MET
[2018-10-17] MEDS: LORazepam 2 MG/ML Bottle 1 MG SL ×2 (09:20→17:44)
[2018-10-17 11:36] LABS: Bedside Glucose 159 mg/dL (70-110)
[2018-10-17] MEDS: 0.9% NaCl VAD Flush 10 ML IV ×3 (13:28→13:32)
[2018-10-17 14:04] LABS: Potassium 3.3 mmol/L (3.5-5.1)
[2018-10-17] MEDS: Fat Emulsions 20% 250 ML IV (15:34)
[2018-10-17 18:31] LABS: Bedside Glucose 125 mg/dL (70-110)
[2018-10-18] VITALS (16 sets, daily range): BP systolic 108–119; BP diastolic 61–77; PULSE 56–73; RESP 16–18; TEMP 36.5–37; O2SAT 95–100
[2018-10-18 00:06] LABS: Bedside Glucose 118 mg/dL (70-110)
[2018-10-18] MEDS: 0.9% NaCl VAD Flush 10 ML IV ×2 (03:15→20:38)
[2018-10-18] MEDS: Ondansetron 4 MG/2 ML Vial IV ×3 (03:15→22:37)
[2018-10-18] MEDS: HYDROmorphone 1 MG/ML Syringe IV ×4 (03:26→20:37)
[2018-10-18 05:43] LABS: Anion Gap 5 (5-15); BUN 15 mg/dL (7-18); BUN/Creat Ratio 28.8 RATIO (10-20); Calcium,Total 7.6 mg/dL (8.5-10.1); Chloride 104 mmol/L (98-107); Creatinine, Serum 0.52 mg/dL (0.70-1.30); EST Glomerular Filtration Rate 172 mL/min (>60); Est Glom Filt Rate - Afr Amer 209 mL/min (>60); Estimated Creatinine Clearance 180.11 ml/min; Glucose 166 mg/dL (74-106); Potassium 3.4 mmol/L (3.5-5.1); Sodium Level 141 mmol/L (136-145)
[2018-10-18 06:19] LABS: Absolute Lymphocyte Count 0.92 X10^3/ul (0.83-4.51); Eosinophil# 0.09 X10^3/uL; Hematocrit 25.9 % (40-54); Hemoglobin 8.7 g/dl (13.0-16.5); Lymphocyte # 0.92 X10^3/ul (4.0); Lymphocyte % 40.5 % (19-41); Mean Corp Hgb Conc 33.6 g/gl (32-36); Mean Corpuscular Hgb 32.5 pg (27.0-32.0); Mean Corpuscular Volume 96.6 fL (80-94); Monocyte# 0.23 X10^3/uL; Monocyte% 10.1 % (0-10); Neutrophil # 1.02 X10^3/uL (2.7-7.7); RBC Distribution Width CV 17.5 % (11.6-14.6); RBC Distribution Width SD 61.7 fl (35.1-43.9); Red Blood Count 2.68 M/mm3 (4.6-6.2); White Blood Count 2.3 K/mm3 (4.4-11.0)
[2018-10-18 06:27] LABS: Differential Indicated SCAN CRITERIA MET; POSITIVE COUNT YES; POSITIVE DIFFERENTIAL NO; POSITIVE MORPHOLOGY YES; Platelet Count 7 K/mm3 (150-450)
[2018-10-18 06:50] LABS: Differential Comment SCAN; Platelet Estimate MKD DEC (ADEQ); Platelet Morphology LARGE
[2018-10-18 07:25] LABS: Bedside Glucose 157 mg/dL (70-110)
--- NOTE | 2018-10-18 09:09 | PN_ITS ---
Patient Problems: Active and Suspected Problems (Last Reviewed 10/15/18 @ 12:12 by Víctor Dunaway MD) Hypokalemia, gastrointestinal losses (Acute) Subjective: Patient seen complains of intermittent hematuria. Potassium is up to 3.4. Platelet count however dropped to 7. An order was given for patient to be transfused 1 unit a pheresis platelets with subsequent platelets check ordered. Objective: GENERAL: Patient appears ill looking HEENT: Atraumatic; EYES; Anicteric, Normal Conjunctiva NECK; supple, normal thyroid, RESPIRATORY: Diminished to auscultation CARDIOVASCULAR: Regular S1 S2, GI: soft, non-tender, normoactive bowel sounds, : No Renal angle tenderness; EXTREMITIES: No edema, no clubbing, MUSCULOSKELETAL: No Joint Tenderness; NEURO: Awake; no lateralizing signs. SKIN: No Rash PSYCH;flat affect Vitals/I&O's: Vital Signs Temp Pulse Resp BP Pulse Ox 97.9 F 60 18 118/73 98 10/18/18 03:03 10/18/18 07:47 10/18/18 03:03 10/18/18 03:03 10/18/18 07:00 Oxygen Delivery Method Room Air Weight: 83.25 kg Body Mass Index (BMI) 22.3 Intake and Output for Last 24 Hours 10/16/18 10/17/18 10/18/18 23:59 23:59 23:59 Intake Total 5609 / 5609 4248 / 4248 1150 / 1150 Output Total 950 / 950 1300 / 1300 450 / 450 Balance 4659 / 4659 2948 / 2948 700 / 700 Laboratory Results 10/17/18 05:54: Total Counted Not Reportable, Differential Comment , Diff Path Review September10/17/18 11:29: POC Glucose 159 H 10/17/18 13:30: Potassium 3.3 L 10/17/18 18:26: POC Glucose 125 H 10/17/18 22:54: POC Glucose 118 H 10/18/18 05:10: WBC 2.3 L, RBC 2.68 L, Hgb 8.7 L, Hct 25.9 L, MCV 96.6 H, MCH 32.5 H, MCHC 33.6, RDW 17.5 H, RDW Differential 61.7 H, Plt Count 7 L*, Immature Gran % (Auto) 0.400, Neut % (Auto) 45.0 L, Lymph % (Auto) 40.5, [place] % (Auto) 10.1 H, Eos % (Auto) 4.0, Baso % (Auto) 0.0, Absolute Neuts (auto) 1.0 L, Absolute Lymphs (auto) 0.92, Total Counted Not Reportable, Differential Comment SCAN, Diff Path Review May foll, Platelet Estimate MKD DEC, Plt Morphology Comment LARGE 10/18/18 05:10: Sodium 141, Potassium 3.4 L, Chloride 104, Carbon Dioxide 32.0, Anion Gap 5, BUN 15, Creatinine 0.52 L, Estim Creat Clear Calc 180.11, Est GFR (MDRD) Af Amer 209, Est GFR (MDRD) Non-Af 172, BUN/Creatinine Ratio 28.8 H, Glucose 166 H, Calcium 7.6 L 10/18/18 07:08: POC Glucose 157 H Current Medications Al Hydroxide/Mg Hydroxide (Mylanta Ii) 30 ml PO Q6H PRN PRN PRN Reason: Gastric Burning Albuterol Sulfate (Ventolin Aerosols) 2.5 mg INHALATION Q2H PRN PRN PRN Reason: Shortness of Breath/Wheezing Dextrose (D50w Syringe) 0 gm IV X1 PRN; Protocol PRN Reason: Hypoglycemia Fentanyl (Duragesic Patch) 25 mcg TRANSDERM. Q3D [facility] Last Admin: 10/15/18 15:05 Dose: 25 mcg Glucagon () 1 mg IM .X1 PRN PRN Reason: Hypoglycemia Guaifenesin (Robitussin) 20 ml PO Q4H PRN PRN PRN Reason: COUGH Hydromorphone HCl (Dilaudid Inj) 1 mg IV Q4H PRN PRN PRN Reason: Severe pain (7-10/10) Last Admin: 10/18/18 08:08 Dose: 1 mg Potassium Chloride/Dextrose/Sod Cl () 1,000 mls @ 100 mls/hr IV .Q10H [facility] Last Admin: 10/18/18 02:00 Dose: 100 mls/hr Multivitamins 10 ml/ Chromium/Copper/Manganese/Seleni/Zn 1 ml/ Folic Acid 1 mg/ Amino Acids/Electrolytes 2,011.2 mls @ 84 mls/hr IV .[id number] [facility] Stop: 10/18/18 15:48 Last Admin: 10/17/18 15:34 Dose: 84 mls/hr Pantoprazole Sodium 40 mg/ (Sodium Chloride) 100 mls @ 300 mls/hr IV Q12 [facility] Potassium Chloride 10 meq/ N/A 100 mls @ 100 mls/hr IV Q1H [facility] Stop: 10/18/18 13:14 Lorazepam (Ativan Intensol) 1 mg SL Q6H PRN PRN PRN Reason: ANXIETY Last Admin: 10/17/18 17:44 Dose: 1 mg Magnesium Hydroxide (Milk Of Magnesia) 30 ml PO DAILY PRN PRN PRN Reason: Constipation Melatonin (Melatonin) 3 mg PO QHS PRN PRN PRN Reason: INSOMNIA Ondansetron HCl (Zofran) 4 mg IV Q6H PRN PRN PRN Reason: NAUSEA/VOMITING Last Admin: 10/18/18 03:15 Dose: 4 mg Oxycodone HCl (Oxyir) 10 mg PO Q4H PRN PRN PRN Reason: Moderate Pain (4-6/10) Last Admin: 10/16/18 08:03 Dose: 10 mg Promethazine HCl (Phenergan) 25 mg IM Q6H PRN PRN PRN Reason: Breakthrough nausea/vomiting Sodium Chloride () 10 ml IV UD PRN PRN Reason: VAD FLUSH Last Admin: 10/18/18 03:15 Dose: 10 ml Throat Lozenges (Cepacol Sore Throat Lozenge) 1 lozenge MUCOUS MEM Q2H PRN PRN PRN Reason: Sore throat or cough Medical Necessity - Tobacco Use Smoking Status: Never smoker Assessment/Plan All Active Problems (Last Reviewed 10/15/18 @ 12:12 by Víctor Dunaway MD) Hypokalemia, gastrointestinal losses (Acute) Intractable nausea and vomiting (Acute) Ureteral obstruction, left (Resolved) CINV (chemotherapy-induced nausea and vomiting) (Resolved) Encounter for adjustment or management of vascular access device (Acute) Pyelonephritis (Resolved) Pyelonephritis, acute (Resolved) Patient is a 58-year-old male with pancreatic cancer with peritoneal carcinomatosis resulting in gastric outlet obstruction as well as left hydronephrosis requiring stent placement who presented nausea and vomiting 1. Intractable nausea vomiting in a patient with stage IV pancreatic cancer with peritoneal carcinomatosis. Patient has been admitted to regular nursing floor for symptomatic management patient complains of abdominal discomfort as of the morning of 10/17/2018 2. Hypokalemia secondary to patient intractable nausea vomiting. Admitted to monitored bed for continuous telemetry repletion initiated in the ED, serial potassium ordered for subsequent monitoring patient potassium remains significantly low as of 10/16/2018. ~ 10/17/2018 up to 3.1 we will continue with potassium repletion ~10/18/2018 potassium levels up to 6.4 3. Stage IV pancreatic cancer with peritoneal carcinomatosis with resultant gastric outlet obstruction as well as left hydronephrosis patient currently receiving chemo as outpatient patient's oncologist is Dr. Dave patient was scheduled to have received chemo on the day of his admission and had to be abandoned in view of his significant electrolyte abnormalities 4. Gastric outlet obstruction with intractable nausea vomiting patient has apparently not been able to keep any diet and is currently receiving TPN 5. Severe protein calorie malnutrition as a result of patient gastric outlet obstruction patient is on TPN reordered 6. 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 Patient started on Protonix drip, as well as monitoring H&H with plans to transfuse if hemoglobin falls below 7 7. Thrombocytopenia chemo induced monitoring significant drop in patient platelet count following admission and order was given for patient to be transfused with 1 unit a pheresis platelets ~ 10/18/2016: Platelet count down to 7 and order has been given for patient to be transfused with 1 unit a pheresis platelets with subsequent checks ordered 8. 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 Previous left upper extremity DVT complicating a PICC line patient was initially placed on Xarelto had to be discontinued in view of GI bleed as well as hematuria 11. DVT prophylaxis avoided chemoprophylaxis in view of patient significant low platelet count Code Visit Inpatient E&M: 90531 Subs Hosp L2
[2018-10-18] MEDS: Potassium Chloride 20mEq/100mL 20 MEQ/100 ML IV.SOLN. 100 MEQ IV ×2 (10:15→11:46)
[2018-10-18 12:51] LABS: Bedside Glucose 121 mg/dL (70-110)
--- NOTE | 2018-10-18 13:21 | CASEMGMT ---
SW asked pt about LW/POA, explained that they are not on the chart, though the nursing assessment indicates pt thought we had them here. Pt will ask to bring in copies. MARI Bo
[2018-10-18 15:36] LABS: Pathologist Review Reviewed
[2018-10-18 15:40] LABS: Pathologist Review Reviewed
[2018-10-18] MEDS: Fat Emulsions 20% 250 ML IV (16:17)
[2018-10-18] MEDS: Ensure Clear 120 ML Liquid PO (16:18)
[2018-10-18] MEDS: fentaNYL 25 MCG Patch TRANSDERM. (16:30)
[2018-10-18] MEDS: LORazepam 2 MG/ML Bottle 1 MG SL ×2 (16:37→23:10)
[2018-10-18 18:36] LABS: Bedside Glucose 126 mg/dL (70-110)
[2018-10-18 23:20] LABS: Bedside Glucose 107 mg/dL (70-110)
[2018-10-19] VITALS (9 sets, daily range): BP systolic 101–116; BP diastolic 38–75; PULSE 58–79; RESP 14–18; TEMP 36.6–37.7; O2SAT 94–99
[2018-10-19] MEDS: HYDROmorphone 1 MG/ML Syringe IV ×3 (01:34→16:08)
[2018-10-19 05:31] LABS: Bedside Glucose 133 mg/dL (70-110)
[2018-10-19] MEDS: LORazepam 2 MG/ML Bottle 1 MG SL ×2 (06:03→12:05)
[2018-10-19] MEDS: Ondansetron 4 MG/2 ML Vial IV ×2 (06:03→12:02)
[2018-10-19] MEDS: 0.9% NaCl VAD Flush 10 ML IV ×7 (06:03→16:08)
[2018-10-19 06:06] LABS: Anion Gap 6 (5-15); BUN 11 mg/dL (7-18); BUN/Creat Ratio 23.4 RATIO (10-20); Calcium,Total 7.6 mg/dL (8.5-10.1); Chloride 108 mmol/L (98-107); Creatinine, Serum 0.47 mg/dL (0.70-1.30); EST Glomerular Filtration Rate 193 mL/min (>60); Est Glom Filt Rate - Afr Amer 234 mL/min (>60); Estimated Creatinine Clearance 199.27 ml/min; Glucose 135 mg/dL (74-106); Potassium 3.3 mmol/L (3.5-5.1); Sodium Level 143 mmol/L (136-145)
[2018-10-19 06:24] LABS: Absolute Lymphocyte Count 0.76 X10^3/ul (0.83-4.51); Absolute Neutrophil Count 0.7 X10^3/uL (2.0-7.7); Differential Indicated SCAN CRITERIA MET; Eosinophil# 0.06 X10^3/uL; Eosinophils% 3.4 % (0-5); Hematocrit 23.2 % (40-54); Hemoglobin 7.7 g/dl (13.0-16.5); Lymphocyte # 0.76 X10^3/ul (4.0); Lymphocyte % 43.2 % (19-41); Mean Corp Hgb Conc 33.2 g/gl (32-36); Mean Corpuscular Hgb 32.1 pg (27.0-32.0); Mean Corpuscular Volume 96.7 fL (80-94); Monocyte# 0.25 X10^3/uL; Monocyte% 14.2 % (0-10); Neutrophil # 0.68 X10^3/uL (2.7-7.7); Neutrophil % 38.6 % (47-70); POSITIVE COUNT YES; POSITIVE DIFFERENTIAL YES; POSITIVE MORPHOLOGY YES; RBC Distribution Width CV 17.7 % (11.6-14.6); RBC Distribution Width SD 62.7 fl (35.1-43.9); White Blood Count 1.8 K/mm3 (4.4-11.0)
[2018-10-19 06:26] LABS: Platelet Count 17 K/mm3 (150-450)
[2018-10-19 06:46] LABS: Anisocytosis 1+; Differential Comment SCAN; Platelet Estimate MKD DEC (ADEQ); Platelet Morphology LARGE
[2018-10-19 06:47] LABS: Hypochromasia 1+; Microcytosis 1+
--- NOTE | 2018-10-19 07:28 | PN_ITS ---
Patient Problems: Active and Suspected Problems (Last Reviewed 10/15/18 @ 12:12 by Víctor Dunaway MD) Hypokalemia, gastrointestinal losses (Acute) Subjective: Patient platelet count came up to 17 after being transfused with 1 unit pheresis platelet the day prior. Potassium dropped to 3.3. Objective: GENERAL: Patient appears ill looking HEENT: Atraumatic; EYES; Anicteric, Normal Conjunctiva NECK; supple, normal thyroid, RESPIRATORY: Diminished to auscultation CARDIOVASCULAR: Regular S1 S2, GI: soft, non-tender, normoactive bowel sounds, : No Renal angle tenderness; EXTREMITIES: No edema, no clubbing, MUSCULOSKELETAL: No Joint Tenderness; NEURO: Awake; no lateralizing signs. SKIN: No Rash PSYCH;flat affect Vitals/I&O's: Vital Signs Temp Pulse Resp BP Pulse Ox 97.8 F 63 18 101/51 L 95 10/19/18 05:27 10/19/18 05:27 10/19/18 05:27 10/19/18 05:27 10/19/18 05:27 Oxygen Delivery Method Room Air Weight: 83.25 kg Body Mass Index (BMI) 22.3 Intake and Output for Last 24 Hours 10/17/18 10/18/18 10/19/18 23:59 23:59 23:59 Intake Total 4248 / 4248 4581 / 4581 1030 / 1030 Output Total 1300 / 1300 950 / 950 Balance 2948 / 2948 3631 / 3631 1030 / 1030 Laboratory Results 10/17/18 05:54: Diff Path Review Reviewed 10/18/18 05:10: Diff Path Review Reviewed 10/18/18 12:44: POC Glucose 121 H 10/18/18 18:22: POC Glucose 126 H 10/18/18 23:13: POC Glucose 107 10/19/18 05:23: POC Glucose 133 H 10/19/18 05:30: WBC 1.8 L, RBC 2.40 L, Hgb 7.7 L, Hct 23.2 L, MCV 96.7 H, MCH 32.1 H, MCHC 33.2, RDW 17.7 H, RDW Differential 62.7 H, Plt Count 17 L*, Immature Gran % (Auto) 0.600, Neut % (Auto) 38.6 L, Lymph % (Auto) 43.2 H, [place] % (Auto) 14.2 H, Eos % (Auto) 3.4, Baso % (Auto) 0.0, Absolute Neuts (auto) 0.7 L, Absolute Lymphs (auto) 0.76 L, Total Counted Not Reportable, Differential Comment SCAN, Diff Path Review May foll, Platelet Estimate MKD DEC, Plt Morphology Comment LARGE, Hypochromasia 1+, Anisocytosis 1+, Microcytosis 1+ 10/19/18 05:30: Sodium 143, Potassium 3.3 L, Chloride 108 H, Carbon Dioxide 29.0, Anion Gap 6, BUN 11, Creatinine 0.47 L, Estim Creat Clear Calc 199.27, Est GFR (MDRD) Af Amer 234, Est GFR (MDRD) Non-Af 193, BUN/Creatinine Ratio 23.4 H, Glucose 135 H, Calcium 7.6 L Current Medications Al Hydroxide/Mg Hydroxide (Mylanta Ii) 30 ml PO Q6H PRN PRN PRN Reason: Gastric Burning Albuterol Sulfate (Ventolin Aerosols) 2.5 mg INHALATION Q2H PRN PRN PRN Reason: Shortness of Breath/Wheezing Dextrose (D50w Syringe) 0 gm IV X1 PRN; Protocol PRN Reason: Hypoglycemia Fentanyl (Duragesic Patch) 25 mcg TRANSDERM. Q3D [facility] Last Admin: 10/18/18 16:30 Dose: 25 mcg Glucagon () 1 mg IM .X1 PRN PRN Reason: Hypoglycemia Guaifenesin (Robitussin) 20 ml PO Q4H PRN PRN PRN Reason: COUGH Hydromorphone HCl (Dilaudid Inj) 1 mg IV Q4H PRN PRN PRN Reason: Severe pain (7-10/10) Last Admin: 10/19/18 01:34 Dose: 1 mg Pantoprazole Sodium 40 mg/ (Sodium Chloride) 100 mls @ 300 mls/hr IV Q12 [facility] Last Admin: 10/18/18 22:37 Dose: 300 mls/hr Multivitamins 10 ml/ Chromium/Copper/Manganese/Seleni/Zn 1 ml/ Folic Acid 1 mg/ Amino Acids/Electrolytes 2,011.2 mls @ 84 mls/hr IV .[id number] [facility] Stop: 10/19/18 15:48 Last Admin: 10/18/18 16:16 Dose: 84 mls/hr Potassium Chloride/Dextrose/Sod Cl () 1,000 mls @ 75 mls/hr IV .[id number] [facility] Last Admin: 10/19/18 01:34 Dose: 75 mls/hr Lorazepam (Ativan Intensol) 1 mg SL Q6H PRN PRN PRN Reason: ANXIETY Last Admin: 10/19/18 06:03 Dose: 1 mg Magnesium Hydroxide (Milk Of Magnesia) 30 ml PO DAILY PRN PRN PRN Reason: Constipation Melatonin (Melatonin) 3 mg PO QHS PRN PRN PRN Reason: INSOMNIA Nutritional Formula (Lactose Free) (Ensure Clear) 120 ml PO 4X/DAY [facility] Last Admin: 10/18/18 21:41 Dose: Not Given Ondansetron HCl (Zofran) 4 mg IV Q6H PRN PRN PRN Reason: NAUSEA/VOMITING Last Admin: 10/19/18 06:03 Dose: 4 mg Oxycodone HCl (Oxyir) 10 mg PO Q4H PRN PRN PRN Reason: Moderate Pain (4-6/10) Last Admin: 10/16/18 08:03 Dose: 10 mg Promethazine HCl (Phenergan) 25 mg IM Q6H PRN PRN PRN Reason: Breakthrough nausea/vomiting Sodium Chloride () 10 ml IV UD PRN PRN Reason: VAD FLUSH Last Admin: 10/19/18 06:03 Dose: 10 ml Throat Lozenges (Cepacol Sore Throat Lozenge) 1 lozenge MUCOUS MEM Q2H PRN PRN PRN Reason: Sore throat or cough Medical Necessity - Tobacco Use Smoking Status: Never smoker Assessment/Plan All Active Problems (Last Reviewed 10/15/18 @ 12:12 by Víctor Dunaway MD) Hypokalemia, gastrointestinal losses (Acute) Intractable nausea and vomiting (Acute) Ureteral obstruction, left (Resolved) CINV (chemotherapy-induced nausea and vomiting) (Resolved) Encounter for adjustment or management of vascular access device (Acute) Pyelonephritis (Resolved) Pyelonephritis, acute (Resolved) Patient is a 58-year-old male with pancreatic cancer with peritoneal carcinomatosis resulting in gastric outlet obstruction as well as left hydronephrosis requiring stent placement who presented nausea and vomiting 1. Intractable nausea vomiting in a patient with stage IV pancreatic cancer with peritoneal carcinomatosis. Patient has been admitted to regular nursing floor for symptomatic management patient complains of abdominal discomfort as of the morning of 10/17/2018 patient intractable nausea and vomiting has since resolved. 2. Hypokalemia secondary to patient intractable nausea vomiting. Admitted to m onitored bed for continuous telemetry repletion initiated in the ED, serial potassium ordered for subsequent monitoring patient potassium remains significantly low as of 10/16/2018. ~ 10/17/2018 up to 3.1 we will continue with potassium repletion ~10/18/2018 potassium levels up to 6.4 3. Stage IV pancreatic cancer with peritoneal carcinomatosis with resultant gastric outlet obstruction as well as left hydronephrosis patient currently receiving chemo as outpatient patient's oncologist is Dr. Dave patient was scheduled to have received chemo on the day of his admission and had to be abandoned in view of his significant electrolyte abnormalities 4. Gastric outlet obstruction with intractable nausea vomiting patient has apparently not been able to keep any diet and is currently receiving TPN but is for patient to undergo gastric stenting in [facility] following discharge 5. Severe protein calorie malnutrition as a result of patient gastric outlet obstruction patient is on TPN reordered 6. 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 Patient started on Protonix drip, as well as monitoring H&H with plans to transfuse if hemoglobin falls below 7 7. Thrombocytopenia chemo induced monitoring significant drop in patient platelet count following admission and order was given for patient to be transfused with 1 unit a pheresis platelets ~ 10/18/2016: Platelet count down to 7 and order has been given for patient to be transfused with 1 unit a pheresis platelets with subsequent checks ordered ~ 10/19/2018 patient platelet count came up to 17 and additional units of pheresis platelets ordered 8. 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 Previous left upper extremity DVT complicating a PICC line patient was initially placed on Xarelto had to be discontinued in view of GI bleed as well as hematuria 11. DVT prophylaxis avoided chemoprophylaxis in view of patient significant low platelet count Code Visit Inpatient E&M: 63136 [facility] Hosp L2
[2018-10-19] MEDS: Scopolamine 1mg/72hr Patch 1 PATCH TD (09:20)
[2018-10-19 14:24] LABS: Pathologist Review Reviewed
[2018-10-19 14:46] LABS: Hemoglobin 8.3 g/dl (13.0-16.5); Mean Corp Hgb Conc 33.2 g/gl (32-36); Mean Corpuscular Hgb 32.4 pg (27.0-32.0); Mean Corpuscular Volume 97.7 fL (80-94); Mean Platelet Vol. 9.6 fl (6.2-12.0); RBC Distribution Width CV 17.8 % (11.6-14.6); RBC Distribution Width SD 62.9 fl (35.1-43.9); Red Blood Count 2.56 M/mm3 (4.6-6.2)
[2018-10-19 15:02] LABS: Platelet Count 37 K/mm3 (150-450); Scan Indicated on CBC? Y/N YES- FLAGS NOTED
[2018-10-19 15:04] LABS: Potassium 3.7 mmol/L (3.5-5.1)
--- NOTE | 2018-10-19 17:19 | DCINST_ITS ---
- Discharge Diagnoses Current Active Problems: Current Active and Chronic Problems (Last Reviewed 10/15/18 @ 12:12 by Víctor Dunaway MD) Hypokalemia, gastrointestinal losses (Acute) You will use the following diet at home:: No restrictions Discharge Activity: Return to Normal Activity Call your doctor if you observe: Fever of 101 or Higher, Shortness of breath, Dizziness, Fainting spells, Chest pain Allergies/Adverse Reactions: Allergies latex Allergy (Verified 10/15/18 09:30) Rash Medications to take at Discharge Bromelains [Bromelain] 500 gm MC BID PRN 01/17/18 Ondansetron [Zofran Odt] 8 mg PO Q8H PRN PRN 01/17/18 Oxycodone [Oxyir] 5 mg PO Q6H PRN PRN 01/17/18 Dexamethasone [Decadron] 2 mg PO DAILY 07/18/18 Diphenoxylate HCl/Atropine [Diphenoxylate-Atrop 2.5-0.025] 2 ea PO Q6H 07/18/18 Hydromorphone HCl 2 mg PO Q6H PRN 07/18/18 Oxybutynin Chloride [Oxybutynin Chloride ER] 10 mg PO DAILY 07/18/18 Pregabalin [Lyrica] 75 mg PO BID 08/06/18 Promethazine HCl 12.5 mg PO Q6H PRN 08/06/18 Scopolamine [Transderm-Scop] 1.5 mg TD X1 30 Days #10 patch.td.3 09/03/18 fentaNYL patch [Duragesic Patch] 25 mcg TRANSDERM. Q3D 10/01/18 Ondansetron [Ondansetron Odt] 8 mg PO Q8H PRN PRN 10 Days #30 tab.rapdis 10/03/18 Ativan Intensol 1 mg SUBLINGUAL Q6H PRN PRN 10/15/18 Methenamine Hippurate [Hiprex] 1 gm PO BID 10/15/18 Primary Care Physician: Kleber Martin DO [Primary Care Provider] - Please follow up with your Primary Care Physician in: 1 Week Test Results: Test results from this visit will be discussed in further detail at your follow- up appointment, if applicable. Please Follow Up With: Justina May MD When: As scheduled or within 1 week Proposed Discharge Date: 10/19/18
--- NOTE | 2018-10-19 17:40 | DS.PCM_ITS ---
<Betty Pack - Last Filed: 10/19/18 17:45> Discharge Date and Diagnosis Date of Admission: 10/15/18 Date of Discharge: 10/19/18 - Primary Discharge Diagnosis Active and Suspected Problems (Last Reviewed 10/15/18 @ 12:12 by Víctor Dunaway MD) 1. Intractable nausea, vomiting secondary to chemotherapy regimen for treatment of stage IV pancreatic cancer with peritoneal carcinomatosis 2. Hypokalemia secondary to #1 3. Stage IV pancreatic cancer with peritoneal carcinomatosis resulting in gastric outlet obstruction as well as left hydronephrosis 4. Gastric outlet obstruction 5. Severe protein calorie malnutrition secondary to gastric outlet obstruction 6. Anemia secondary to malignancy/acute blood loss anemia due to GI bleed 7. Pancytopenia 8. Peripheral neuropathy secondary to chemotherapy regimen 9. Left hydronephrosis secondary to peritoneal carcinomatosis as a result of stage IV pancreatic cancer with recent stent placement 08/24/2018 10. Prior left upper extremity DVT secondary to PICC line placement - Secondary Discharge Diagnosis Chronic Problems (Last Reviewed 10/15/18 @ 12:12 by Víctor Dunaway MD) GI (gastrointestinal bleed) (Chronic) Pancreas cancer (Chronic) Peritoneal carcinomatosis (Chronic) Hematuria (Chronic) While on anticoagulants DVT of upper extremity (deep vein thrombosis) (Chronic) January 2018 complicating PICC line Hydronephrosis, left (Chronic) Status post stent May 2018 Cancer-related pain (Chronic) Gastrostomy in place (Chronic) Hospital Course and Treatment Dr. May- Oncology Operations: None Procedures: None Summary of Care Provided: The patient is a 58 year old M admitted 10/15/2018 due to intractable nausea, vomiting. 1. Intractable nausea, vomiting secondary to chemotherapy regimen for treatment of stage IV pancreatic cancer with peritoneal carcinomatosis-improved. Patient wishes to return home. Continue as needed antiemetic regimen. Follow-up with primary care provider in 1 week. Follow-up with oncology as scheduled or within 1 week. 2. Hypokalemia secondary to #1-replaced per protocol. Resolved. 3. Stage IV pancreatic cancer with peritoneal carcinomatosis resulting in gastric outlet obstruction as well as left hydronephrosis-oncology consulted during admission. Continue outpatient follow-up. 4. Gastric outlet obstruction-on TPN. Has upcoming appointment in [place] for further stenting. 5. Severe protein calorie malnutrition secondary to gastric outlet obstruction- continue TPN regimen. 6. Anemia secondary to malignancy/acute blood loss anemia due to GI bleed- stable. 7. Pancytopenia-status post 4 units pheresis platelets. Stable. 8. Peripheral neuropathy secondary to chemotherapy regimen-continue Lyrica regimen. 9. Left hydronephrosis secondary to peritoneal carcinomatosis as a result of stage IV pancreatic cancer with recent stent placement 08/24/2018 10. Prior left upper extremity DVT secondary to PICC line placement-previously on Xarelto which has been discontinued due to GI bleed and hematuria. Patient seen and examined prior to discharge. Physical assessment as noted below. Patient is stable for discharge with follow up recommendations as noted above. This patient was seen by ANDREZ Tam under the supervision of Dr. Dunaway. - Physical Exam General: Alert, Oriented x3, Cooperative HEENT: Atraumatic, PERRLA, EOMI, Normocephalic Oral: Dry Mucosa Neck: Supple, No JVD, Negative Carotid Bruits Lungs: Clear to auscultation, Normal air movement Cardiovascular: Regular rate, Regular Rhythm, Normal S1, Normal S2, No murmurs Abdomen: Bowel Sounds Present, Soft, Non Tender, Non-Distended Extremities: No clubbing, No cyanosis, No edema, Capillary Refill Less than 3 Seconds Skin: No rashes, No breakdown Musculoskeletal: No Tenderness to Palpation of Joints or Extremities Neurological: Cranial nerves II-XII grossly intact, Neuro grossly intact Psych/Mental Status: Flat Affect Vital Signs Temp Pulse Resp BP Pulse Ox 98.6 F 58 L 18 114/66 94 10/19/18 16:00 10/19/18 16:00 10/19/18 16:00 10/19/18 16:00 10/19/18 16:00 Oxygen Delivery Method Room Air Weight: 209 lb 6.4 oz Body Mass Index (BMI) 22.3 Intake and Output for Last 24 Hours 10/17/18 10/18/18 10/19/18 23:59 23:59 23:59 Intake Total 4248 / 4248 4581 / 4581 2572 / 2572 Output Total 1300 / 1300 950 / 950 400 / 400 Balance 2948 / 2948 3631 / 3631 2172 / 2172 Laboratory Tests Past 24 Hrs 10/19/18 10/19/18 10/19/18 05:30 05:30 07:55 WBC 1.8 L RBC 2.40 L Hgb 7.7 L Hct 23.2 L MCV 96.7 H MCH 32.1 H MCHC 33.2 RDW 17.7 H RDW Differential 62.7 H Plt Count 17 L* MPV Immature Gran % (Auto) 0.600 Neut % (Auto) 38.6 L Lymph % (Auto) 43.2 H Mcclain % (Auto) 14.2 H Eos % (Auto) 3.4 Baso % (Auto) 0.0 Absolute Neuts (auto) 0.7 L Absolute Lymphs (auto) 0.76 L Total Counted Not Reportable Differential Comment SCAN Diff Path Review Reviewed Platelet Estimate MKD DEC Plt Morphology Comment LARGE Hypochromasia 1+ Anisocytosis 1+ Microcytosis 1+ Sodium 143 Potassium 3.3 L Chloride 108 H Carbon Dioxide 29.0 Anion Gap 6 BUN 11 Creatinine 0.47 L Estim Creat Clear Calc 199.27 Est GFR (MDRD) Af Amer 234 Est GFR (MDRD) Non-Af 193 BUN/Creatinine Ratio 23.4 H Glucose 135 H Calcium 7.6 L Blood Type A POSITIVE 10/19/18 10/19/18 14:00 14:00 WBC 2.0 L RBC 2.56 L Hgb 8.3 L Hct 25.0 L MCV 97.7 H MCH 32.4 H MCHC 33.2 RDW 17.8 H RDW Differential 62.9 H Plt Count 37 L* MPV 9.6 Immature Gran % (Auto) Neut % (Auto) Lymph % (Auto) Mcclain % (Auto) Eos % (Auto) Baso % (Auto) Absolute Neuts (auto) Absolute Lymphs (auto) Total Counted Differential Comment COMMENT Diff Path Review May foll Platelet Estimate Plt Morphology Comment Hypochromasia Anisocytosis Microcytosis Sodium Potassium 3.7 Chloride Carbon Dioxide Anion Gap BUN Creatinine Estim Creat Clear Calc Est GFR (MDRD) Af Amer Est GFR (MDRD) Non-Af BUN/Creatinine Ratio Glucose Calcium Blood Type POC Glucose 10/19/18 10/18/18 10/18/18 05:23 23:13 18:22 POC Glucose 133 H 107 126 H Discharge Diet: No Restrictions Discharge Activity: Return to Normal Activity Call your doctor if you observe: Fever of 101 or Higher, Shortness of breath, Dizziness, Fainting spells, Chest pain Home Medications: Medications to take at Discharge Bromelains [Bromelain] 500 gm MC BID PRN 01/17/18 Ondansetron [Zofran Odt] 8 mg PO Q8H PRN PRN 01/17/18 Oxycodone [Oxyir] 5 mg PO Q6H PRN PRN 01/17/18 Dexamethasone [Decadron] 2 mg PO DAILY 07/18/18 Diphenoxylate HCl/Atropine [Diphenoxylate-Atrop 2.5-0.025] 2 ea PO Q6H 07/18/18 Hydromorphone HCl 2 mg PO Q6H PRN 07/18/18 Oxybutynin Chloride [Oxybutynin Chloride ER] 10 mg PO DAILY 07/18/18 Pregabalin [Lyrica] 75 mg PO BID 08/06/18 Promethazine HCl 12.5 mg PO Q6H PRN 08/06/18 Scopolamine [Transderm-Scop] 1.5 mg TD X1 30 Days #10 patch.td.3 09/03/18 fentaNYL patch [Duragesic Patch] 25 mcg TRANSDERM. Q3D 10/01/18 Ondansetron [Ondansetron Odt] 8 mg PO Q8H PRN PRN 10 Days #30 tab.rapdis 10/03/18 Ativan Intensol 1 mg SUBLINGUAL Q6H PRN PRN 10/15/18 Methenamine Hippurate [Hiprex] 1 gm PO BID 10/15/18 Primary Care Physician: Kleber Martin DO [Primary Care Provider] - Please follow up with your Primary Care Physician in: 1 Week Please Follow Up With: Justina May MD When: As scheduled or within 1 week Disposition: Home Minutes spent on discharge:: 35 Patient Condition:: Fair Medical Necessity - Tobacco Use Smoking Status: Never smoker Meaningful Use Info Meaningful Use Diagnoses (Choose all that apply): None applicable <Víctor Dunaway - Last Filed: 10/20/18 07:11> Discharge Date and Diagnosis - Secondary Discharge Diagnosis Chronic Problems (Last Reviewed 10/15/18 @ 12:12 by Víctor Dunaway MD) GI (gastrointestinal bleed) (Chronic) Pancreas cancer (Chronic) Peritoneal carcinomatosis (Chronic) Hematuria (Chronic) While on anticoagulants DVT of upper extremity (deep vein thrombosis) (Chronic) January 2018 complicating PICC line Hydronephrosis, left (Chronic) Status post stent May 2018 Cancer-related pain (Chronic) Gastrostomy in place (Chronic) Hospital Course and Treatment Summary of Care Provided: This patient was seen in conjunction with ANDREZ Tam . I have independently interviewed and examined the patient and reviewed pertinent historical, laboratory, and other data. Please refer to ANDREZ Tam note for details of this patient's presentation, findings, and recommendations. I have reviewed ANDREZ Tam note and concur with documented findings. In brief, patient is a 58-year-old gentleman with metastatic pancreatic CVA admitted with intractable nausea vomiting. Hospital stay complicated by significant electrolyte abnormalities including hypokalemia. Patient was also found to be pancytopenic attributed to his recent chemotherapy. Hospital course: Document above - Physical Exam Vital Signs Temp Pulse Resp BP Pulse Ox 98.6 F 58 L 18 114/66 94 10/19/18 16:00 10/19/18 16:00 10/19/18 16:00 10/19/18 16:00 10/19/18 16:00 Oxygen Delivery Method Room Air Weight: 94.982 kg Body Mass Index (BMI) 22.3 Intake and Output for Last 24 Hours 10/18/18 10/19/18 10/20/18 23:59 23:59 23:59 Intake Total 4581 / 4581 2572 / 2572 Output Total 950 / 950 400 / 400 Balance 3631 / 3631 2172 / 2172 Laboratory Tests Past 24 Hrs 10/19/18 10/19/18 10/19/18 05:30 07:55 14:00 WBC 2.0 L RBC 2.56 L Hgb 8.3 L Hct 25.0 L MCV 97.7 H MCH 32.4 H MCHC 33.2 RDW 17.8 H RDW Differential 62.9 H Plt Count 37 L* MPV 9.6 Differential Comment COMMENT Diff Path Review Reviewed May foll Potassium Blood Type A POSITIVE 10/19/18 14:00 WBC RBC Hgb Hct MCV MCH MCHC RDW RDW Differential Plt Count MPV Differential Comment Diff Path Review Potassium 3.7 Blood Type POC Glucose 10/19/18 12:21 POC Glucose 109 Code Visit Inpatient E&M: 43272 Disch Hosp
[2018-10-20 01:36] LABS: Bedside Glucose 109 mg/dL (70-110)
[2018-10-22 12:58] LABS: Pathologist Review Reviewed
--- NOTE | 2018-10-23 14:22 | CASEMGMT ---
NICKI ISSA Discharge Follow-Up Phone Call. Lace: 14 Strata: 4 Discharge Date: 10/19/18 Adm Dx: N/V, Hypokalemia. Call to pt to inquire about how he has been doing since being discharged from the hospital. Pt stated he is getting ready to fly to [place] this evening for a procedure scheduled for . He states his called Dr Martin's office this morning and notified them. Pt denies having any concerns or questions about the discharge instructions. Denies needs at this time. Pt voiced appreciation for the call. Raquel TRIVEDI RN, CM
== END 2018-10-19 19:00 | disposition home or self-care (01) | DRG 640 ==
LOC: ED 10:11 → MS3 12:04
PROVIDERS: Admitting Provider Internal Medicine; Emergency Provider Emergency Medicine; Family Provider Family Medicine; PCP Family Medicine; Visit Provider Internal Medicine
DX: E87.6 Hypokalemia (principal); E43 Unspecified severe protein-calorie malnutrition; D61.818 Other pancytopenia; C25.9 Malignant neoplasm of pancreas, unspecified; C78.6 Secondary malignant neoplasm of retroperitoneum and peritoneum; K31.1 Adult hypertrophic pyloric stenosis; N13.30 Unspecified hydronephrosis; K92.2 Gastrointestinal hemorrhage, unspecified; D62 Acute posthemorrhagic anemia; R11.2 Nausea with vomiting, unspecified; T45.1X5A Adverse effect of antineoplastic and immunosuppressive drugs, initial encounter; E86.0 Dehydration; R31.9 Hematuria, unspecified; G62.0 Drug-induced polyneuropathy; G89.3 Neoplasm related pain (acute) (chronic); D63.0 Anemia in neoplastic disease; D69.59 Other secondary thrombocytopenia; Y92.9 Unspecified place or not applicable; Z68.22 Body mass index [BMI] 22.0-22.9, adult; Z93.1 Gastrostomy status; Z79.899 Other long term (current) drug therapy; Z86.718 Personal history of other venous thrombosis and embolism; Z87.440 Personal history of urinary (tract) infections; Z87.891 Personal history of nicotine dependence; Z96.642 Presence of left artificial hip joint; Z90.49 Acquired absence of other specified parts of digestive tract
CPT/HCPCS: 36415; 80048; 80053; 82962; 83690; 83735; 84132; 84484; 85025; 85027; 86644; 86900; 86965; 93005; 97802; 99251; 99283; J7030; J7040; P9035; P9037; A4216; G0463; J2405; J3490

== ENCOUNTER 2018-11-07 17:46 | Emergency (ER) | payer BC, SELFPAY ==
[2018-10-22 09:43] VITALS: BMI 25.2
[2018-11-07 17:46] VITALS: BP 85/58; PULSE 101; RESP 18; TEMP 36.5; O2SAT 100; BMI 22.7
--- NOTE | 2018-11-07 18:09 | CT_ITS ---
STUDY: CT ABDOMEN AND PELVIS WITHOUT CONTRAST REASON FOR EXAM: Male, 58 years old. Pain RADIATION DOSAGE (If Supplied By Facility): DLP = ( 409.81 ) mGycm TECHNIQUE: Transaxial images were obtained from the dome of the diaphragm to the symphysis pubis with oral contrast, and without intravenous contrast. Sagittal and coronal images were reconstructed. Individualized dose optimization techniques were used for this CT. COMPARISON: CT abdomen and pelvis September 14, 2018 FINDINGS: Evaluation of the abdominal viscera is limited in the absence of intravenous contrast. The visualized lung bases are clear. The visualized portions of the heart and pericardium are within normal limits. The gallbladder has been removed. The liver demonstrates an unremarkable unenhanced appearance. The spleen is normal in size. History of pancreatic cancer noted with stable appearance of the pancreas. The adrenal glands are within normal limits. There are no obstructing renal stones. There is no hydronephrosis. There is a right renal midpole 2.9 cm cyst. Again seen is a left ureteral stent. There has been mild to moderate interval improvement in left-sided hydronephrosis. There has been interval placement of a stent traversing the gastric antrum and proximal duodenum. Gastrostomy tube is present. There is moderate distention of the third and fourth portions of the duodenum. Uniform sigmoid colonic wall thickening and nonspecific areas of thickening throughout the colon. Likely secondary to nondistention. The appendix is not visualized, but there are no findings to suggest acute appendicitis. The aorta is normal in caliber. Again seen is increased attenuation within the mesentery as well as mild mesenteric lymphadenopathy, slightly increased. There are no destructive osseous lesions. CT/Abdomen/Pelvis without Cont IMPRESSION: Interval placement of a stent traversing the gastric antrum and proximal duodenum. Moderate distention of the third and fourth portions of the duodenum, nonspecific. Mild to moderate improvement in left sided hydronephrosis with stable appearance of left ureteral stent. Slightly increased mesenteric fat stranding and mild lymphadenopathy. Uniform sigmoid colonic wall thickening, possibly due to nondistention as well as nonspecific areas of thickening throughout the colon, with differential including infectious, inflammatory, or neoplastic causes. Electronically Signed: Yaakov Caraballo, at 19:31 EDT Tel , Service support ,
--- NOTE | 2018-11-07 18:09 | EKG12_ITS ---
Test Reason : Blood Pressure : / mmHG Vent. Rate : 095 BPM Atrial Rate : 095 BPM P-R Int : 148 ms QRS Dur : 096 ms QT Int : 388 ms P-R-T Axes : 058 -44 077 degrees QTc Int : 487 ms Normal sinus rhythm Left axis deviation Incomplete right bundle branch block Nonspecific ST and T wave abnormality Abnormal ECG Confirmed by LARON SIMMONS, VINOD ([id number]), image editor AMY CORLEY ([id number]) on 11/09/2018 10:49:37 AM Referred By: Sabrina Way Confirmed By:ROSIE LARRY MD
--- NOTE | 2018-11-07 18:10 | RAD_ITS ---
STUDY: X-RAY CHEST REASON FOR EXAM: Male, 58 years old. Chest pain TECHNIQUE: Frontal view of the chest 9 COMPARISON: X-ray chest August 27, 2017. X-ray chest August 31, 2017 FINDINGS: Right chest tunneled catheter is present with the tip at the cavoatrial junction. The lungs are clear. There are no pleural effusions. There is no pneumothorax. The heart is normal in size. The visualized osseous structures are within normal limits. RAD/Chest 1 View (Portable) IMPRESSION: No acute thoracic pathology. Electronically Signed: Yaakov Caraballo, at 18:42 EDT Tel , Service support ,
[2018-11-07 18:29] LABS: Absolute Lymphocyte Count 1.45 X10^3/ul (0.83-4.51); Absolute Neutrophil Count 13.9 X10^3/uL (2.0-7.7); Basophil# 0.02 X10^3/uL; Basophil% 0.1 % (0-1); Eosinophil# 0.03 X10^3/uL; Eosinophils% 0.2 % (0-5); Hematocrit 32.9 % (40-54); Hemoglobin 10.5 g/dl (13.0-16.5); Lymphocyte # 1.45 X10^3/ul (4.0); Lymphocyte % 8.6 % (19-41); Mean Corp Hgb Conc 31.9 g/gl (32-36); Mean Corpuscular Volume 97.1 fL (80-94); Mean Platelet Vol. 11.1 fl (6.2-12.0); Monocyte# 1.36 X10^3/uL; Monocyte% 8.1 % (0-10); Neutrophil # 13.88 X10^3/uL (2.7-7.7); Neutrophil % 82.7 % (47-70); Platelet Count 206 K/mm3 (150-450); RBC Distribution Width CV 16.8 % (11.6-14.6); RBC Distribution Width SD 58.7 fl (35.1-43.9); Red Blood Count 3.39 M/mm3 (4.6-6.2); White Blood Count 16.8 K/mm3 (4.4-11.0)
[2018-11-07] MEDS: Ondansetron 4 MG/2 ML Vial IV (18:29)
[2018-11-07] MEDS: 0.9% Normal Saline 1,000 ML 999 ML IV ×2 (18:29→19:22)
[2018-11-07] MEDS: Morphine 4 MG/ML Syringe IV ×2 (18:29→19:55)
[2018-11-07 18:32] LABS: POSITIVE COUNT NO; POSITIVE DIFFERENTIAL NO; POSITIVE MORPHOLOGY NO
[2018-11-07 18:34] VITALS: BP 104/69; PULSE 95; RESP 22; O2SAT 100; O2SAT 99
[2018-11-07 18:37] LABS: International Normalized Ratio 1.1; Partial Thromboplast Time 29.4 Seconds (24.1-36.2)
[2018-11-07 18:43] VITALS: BP 104/69; PULSE 89; RESP 16; TEMP 36.9; O2SAT 97
[2018-11-07 18:49] LABS: ALB/GLOB Ratio 0.5 RATIO (0.9-2.4); AST(SGOT) 69 U/L (15-37); Alanine Aminotransfer ALT/SGPT 107 U/L (16-61); Albumin, Serum 2.5 g/dL (3.2-5.0); Alkaline Phosphatase 518 U/L (45-117); Anion Gap 7 (5-15); BUN 31 mg/dL (7-18); BUN/Creat Ratio 34.3 RATIO (10-20); Calcium,Total 8.4 mg/dL (8.5-10.1); Chloride 105 mmol/L (98-107); EST Glomerular Filtration Rate 91 mL/min (>60); Est Glom Filt Rate - Afr Amer 110 mL/min (>60); Estimated Creatinine Clearance 106.03 ml/min; Globulin 4.6 g/dL (2.2-4.2); Glucose 143 mg/dL (74-106); Potassium 2.8 mmol/L (3.5-5.1); Protein, Total 7.1 g/dL (6.4-8.2); Sodium Level 144 mmol/L (136-145)
[2018-11-07 18:59] LABS: Lactic Acid 3.5 mmol/L (0.4-2.0)
--- NOTE | 2018-11-07 19:02 | ED.RN ---
LAB CALLED CRITICAL FOR THIS PT OF LACTIC OF 3.5, DR KEMP NOTIFIED, NFO'S GIVEN
[2018-11-07 19:20] VITALS: BP 119/93; PULSE 84; RESP 16; TEMP 36.9; O2SAT 100
[2018-11-07] MEDS: proMETHazine 25 MG/ML Syringe 6.25 MG IV (19:56)
[2018-11-07 20:01] VITALS: BP 111/88; PULSE 88; PULSE 89; RESP 20; TEMP 36.8; O2SAT 99
[2018-11-07 20:08] LABS: Color, Urine Yellow (Yellow); Glucose, Dipstick Normal (Normal); Ketone-Dipstick Negative (Negative); Leukocyte Esterase-Dipstick 100 /ul (Negative); Nitrite-Dipstick Negative (Negative); Occult Blood-Urine 250 /ul (Negative); Protein-Dipstick 30 mg/dl (Negative); Urine Bilirubin Dipstick Negative (Negative); Urine Clarity Sl. Cloudy (Clear); Urine Urobilinogen Normal (Normal)
[2018-11-07 20:15] LABS: Red Blood Cells-Urine > 100 SEEN /hpf (0-5); White Blood Cells 50-100 SEEN /hpf (0-5)
[2018-11-07 20:16] LABS: Bacteria 3+ /hpf (None Seen); Mucous, Urine RARE /hpf (<or=2+); Squamous Epithelial Cells - UA 0-5 SEEN /hpf (0-5)
[2018-11-07] MEDS: Potassium Chloride 10mEq/100mL 10 MEQ/100 ML IV.SOLN. 100 MEQ IV BOLUS ×2 (20:22→21:31)
--- NOTE | 2018-11-07 20:44 | ED.DCSUM_ITS ---
- ER Visit Summary Date of Service: 11/07/18 Chief Complaint: Nausea and vomiting History of Present Illness: The patient is a 58 M with nausea and vomiting. Symptoms have been going on for months, but have been worse over the past 4 days. Patient has a history of pancreatic cancer. He is status post lashae motherapy by Dr. Luke. His last treatment was about a month ago. He has not had radiation or surgery for his pancreatic cancer. He was in [place] up until about 4 or 5 days ago. He was being evaluated for a cancer trial. He developed a gastric blockage and required a gastric stent. This was complicated with a duodenal perforation and he was admitted in [place] for about a week. He was di scharged this past Monday and return back to [place]. He has a G-tube which was placed in February 2018 in [place]. He reports a decreased output from that tube. Patient also has a history of thrombocytopenia, hypokalemia, GI bleed, DVT, and pyelonephritis. He has a left ureter stent that was placed by Dr. Salcedo. He denies any other associated symptoms like fevers, chills, chest pain, shortne ss of breath, urinary symptoms, new rash, aches, or headache. He is planning to resume chemotherapy next week. Physical Examination: Initial blood pressure 85/58 and heart rate 101. Otherwise vitals unremarkable. Afebrile. Patient is cachectic and actively vomiting. Airway otherwise intact. Right chest catheter was noted. Heart is regular. Lungs are clear but diminished. Abdomen is soft and nontender. G- tube is in place. Back is nontender. No CVA tenderness. Extremities unremarkable. Test Results: EKG showed sinus rhythm at a rate of 95. Incomplete right bundle branch block pattern noted. Nonspecific ST and T wave changes. White count 16.8 and hemoglobin 10.5. Potassium 2.8, glucose 143, BUN 31, total bilirubin 2.1. Alkaline phosphatase 518, ALT 107 and AST 69. Coags normal. Urinalysis pending. Troponin normal. Lactate 3.5. Cultures pending. CT abdomen and pelvis showed sigmoid colon wall thickening concerning for neop lasm versus inflammation versus infection. He also has increased mesenteric fat stranding and lymphadenopathy. Gastric antrum and proximal duodenum has a stent which appears stable. Distal third and fourth segments of the duodenum are slightly distended. He has a left ureter stent which shows mildly improved hydronephrosis. Emergency Department Course and Treatment: Patient was placed on a monitor. IV access obtained. He was started on fluid resuscitation, 30 cc/kg. On reevaluation, systolic pressure is 124. Patient also received morphine and Zofran. Pain and nausea improved on reevaluation. White count was elevated and lactate was 3.5. Patient meets criteria for sepsis. I am concerned for GI source. He was covered with Zosyn. He was treated with potassium replacement. He required additional pain medicine and nausea medicine. I spoke with the hospitalist here to admit him, and he wanted me to speak with general surgery. I spoke with Dr. Montes De Oca. He voiced multiple concerns, that the patient may need higher level of care. If he had any surgical complications, we could not accommodate him here. I spoke with the patient and his family. They would like me to contact [facility]. I spoke with the call center, and the patient was accepted by Dr. Joseline Hobbs. Treatment Plan: As above Disposition: Transfer Impression: 1. Nausea and vomiting 2. Hypokalemia 3. Severe sepsis 4. Colitis 5. Pancreatic cancer 6. UTI This note was generated with [employer] dictation software. It may contain incorrect words, spelling, and punctuation that were not noted in review of the chart prior to signing ED Disposition - Plan for ED Patient: Referrals: Kleber Martin DO [Primary Care Provider] -
[2018-11-07 21:16] VITALS: BP 110/89; PULSE 91; PULSE 92; RESP 16; TEMP 37; O2SAT 99
--- NOTE | 2018-11-07 22:02 | ED.RN ---
transferred with 2nd isma infusing- new bag of NS started. returned 2 bags of KCL to our pharmacy.
[2018-11-07 22:23] LABS: Reflex Lactate? Y
== END 2018-11-07 21:50 | disposition short-term general hospital (02) ==
LOC: ED 18:19
PROVIDERS: Emergency Provider Emergency Medicine; Family Provider Family Medicine; PCP Family Medicine
DX: R65.20 Severe sepsis without septic shock (principal); E87.6 Hypokalemia; N39.0 Urinary tract infection, site not specified; K52.9 Noninfective gastroenteritis and colitis, unspecified; Z79.899 Other long term (current) drug therapy; Z85.07 Personal history of malignant neoplasm of pancreas; Z92.21 Personal history of antineoplastic chemotherapy; Z86.718 Personal history of other venous thrombosis and embolism; Z87.440 Personal history of urinary (tract) infections
CPT/HCPCS: 36591; 71045; 74176; 80053; 81001; 83605; 84484; 85025; 85610; 85730; 87040; 87086; 87088; 93005; 96361; 96365; 96366; 96367; 96375; 96376; 99284; J7030; J7040; A4216; J2405

== ENCOUNTER 2018-11-20 13:08 | Outpatient (RCR) | payer SELFPAY ==
[2018-08-13 00:39] VITALS: BMI 23.5
[2018-11-20 14:09] LABS: Hematocrit 27.2 % (40-54); Hemoglobin 8.8 g/dl (13.0-16.5); Mean Corp Hgb Conc 32.4 g/gl (32-36); Mean Corpuscular Hgb 30.1 pg (27.0-32.0); Mean Corpuscular Volume 93.2 fL (80-94); Mean Platelet Vol. 12.1 fl (6.2-12.0); Platelet Count 139 K/mm3 (150-450); RBC Distribution Width CV 16.2 % (11.6-14.6); RBC Distribution Width SD 55.3 fl (35.1-43.9); Red Blood Count 2.92 M/mm3 (4.6-6.2); White Blood Count 9.7 K/mm3 (4.4-11.0)
[2018-11-20 14:10] LABS: Scan Indicated on CBC? Y/N NO
[2018-11-20 14:50] LABS: ALB/GLOB Ratio 0.4 RATIO (0.9-2.4); AST(SGOT) 62 U/L (15-37); Alanine Aminotransfer ALT/SGPT 77 U/L (16-61); Albumin, Serum 1.9 g/dL (3.2-5.0); Alkaline Phosphatase 428 U/L (45-117); Anion Gap 7 (5-15); BUN 22 mg/dL (7-18); BUN/Creat Ratio 47.3 RATIO (10-20); Calcium,Total 8.1 mg/dL (8.5-10.1); Chloride 107 mmol/L (98-107); Creatinine, Serum 0.46 mg/dL (0.70-1.30); EST Glomerular Filtration Rate 196 mL/min (>60); Est Glom Filt Rate - Afr Amer 237 mL/min (>60); Globulin 4.5 g/dL (2.2-4.2); Glucose 103 mg/dL (74-106); Phosphorus 3.3 mg/dL (2.5-4.9); Potassium 4.2 mmol/L (3.5-5.1); Prealbumin 11.4 mg/dL (20.0-40.0); Protein, Total 6.4 g/dL (6.4-8.2); Sodium Level 139 mmol/L (136-145)
[2018-11-26 13:31] LABS: ALB/GLOB Ratio 0.4 RATIO (0.9-2.4); AST(SGOT) 88 U/L (15-37); Alanine Aminotransfer ALT/SGPT 104 U/L (16-61); Albumin, Serum 1.8 g/dL (3.2-5.0); Alkaline Phosphatase 608 U/L (45-117); Anion Gap 3 (5-15); BUN 61 mg/dL (7-18); BUN/Creat Ratio 61.7 RATIO (10-20); Calcium,Total 8.2 mg/dL (8.5-10.1); Chloride 102 mmol/L (98-107); Creatinine, Serum 0.99 mg/dL (0.70-1.30); EST Glomerular Filtration Rate 82 mL/min (>60); Est Glom Filt Rate - Afr Amer 99 mL/min (>60); Globulin 4.8 g/dL (2.2-4.2); Glucose 301 mg/dL (74-106); Hematocrit 28.7 % (40-54); Hemoglobin 9.2 g/dl (13.0-16.5); Magnesium 2.4 mg/dL (1.6-2.6); Mean Corp Hgb Conc 32.1 g/gl (32-36); Mean Corpuscular Hgb 29.2 pg (27.0-32.0); Mean Corpuscular Volume 91.1 fL (80-94); Mean Platelet Vol. 11.8 fl (6.2-12.0); Phosphorus 3.9 mg/dL (2.5-4.9); Platelet Count 107 K/mm3 (150-450); Potassium 4.6 mmol/L (3.5-5.1); Prealbumin 11.8 mg/dL (20.0-40.0); Protein, Total 6.6 g/dL (6.4-8.2); RBC Distribution Width CV 15.6 % (11.6-14.6); RBC Distribution Width SD 50.7 fl (35.1-43.9); Red Blood Count 3.15 M/mm3 (4.6-6.2); Sodium Level 138 mmol/L (136-145); White Blood Count 14.3 K/mm3 (4.4-11.0)
[2018-11-26 13:32] LABS: Scan Indicated on CBC? Y/N NO
== END 2018-12-12 23:59 ==
LOC: HHLAB 13:08
PROVIDERS: Family Provider Family Medicine; PCP Family Medicine; Referring Provider Family Medicine; Visit Provider Family Medicine
DX: C25.9 Malignant neoplasm of pancreas, unspecified (principal)
CPT/HCPCS: 80053; 83735; 84100; 84134; 85027